=== PATIENT | female | born 1950 | race Caucasian/White ===

== ENCOUNTER → 2016-05-26 | Outpatient (CLI) | payer OTHER ==
[~2016-05-26] MED LIST: ALBU18002 INH; ALBU1AER9 INH; AMLO-114 PO; ASPCH81X PO; ASPI-232 PO; CANA1TAB PO; CLON0.5T3 PO; CLOP1TAB15 PO; EPP3/2 IM; FEXO1TAB58 PO; FLUT0.15; FLUT0.15 NAE; FLUT1INH INH; INSU3INJ3 SUBCON; IRON INFUSIONS IV; LEVO25TA5 PO; LISI20TA3 PO; LPR25 PO; MONT1TAB3 PO; MONT1TAB5 PO; NITR0.4S UT; NTRGSLP4 PO; NVLGI/PEN SC; ONDA4TAB10 SL; ROPI5TAB PO; SERT-234 PO; SERT50TA PO; SITA50TA3 PO; ZALE10CA PO
[2016-05-29 08:57] LABS: PATIENT HEIGHT 162.6 cm
[2016-05-30 07:39] LABS: CREATININE 1.8 mg/dl (0.6-1.2)
== END | disposition home or self-care (01) ==
LOC: C.LABPVFM 11:01
PROVIDERS: ATTEND Family Medicine
DX: N18.3 Chronic kidney disease, stage 3 (moderate) (principal)

== ENCOUNTER → 2016-05-26 | Outpatient (CLI) | payer OTHER ==
[2016-05-26 14:03] LABS: BASO % 0.3 %; BASO ABS # 0.04 K/uL (0-0.2); COMPLETE YES; EOS % 2.7 %; HEMATOCRIT 35.3 % (37-47); IG% 0.2 %; LYMPH % 24.6 %; LYMPH ABS # 3.11 K/uL (1.2-3.4); MEAN CELL VOLUME 75.1 fL (80-100); MEAN CORPUSCULAR HEMOGLOBIN 23.6 pg (25-34); MEAN CORPUSCULAR HGB CONC 31.4 g/dl (32-36); MEAN PLATELET VOLUME 9.1 fL (7.4-10.4); MONO % 6.9 %; NEUT % 65.3 %; PLATELET COUNT 399 K/uL (130-400); WHITE BLOOD COUNT 12.65 K/uL (4.8-10.8)
[2016-05-26 14:18] LABS: URINE APPEARANCE CLEAR (CLEAR); URINE BILIRUBIN NEG (NEG); URINE COLOR YELLOW; URINE EPITHELIAL CELL AUTO >30 /lpf (0-5); URINE NITRITE NEG (NEG); URINE SPECIFIC GRAVITY 1.009 (1.000-1.030); UROBILINOGEN NEG (NEG)
[2016-05-26 14:19] LABS: ALT/SGPT 15 U/L (12-78); BLOOD UREA NITROGEN 38 mg/dl (7-18); BUN/CREATININE RATIO 21.3 (10-20); CALCIUM 9.4 mg/dl (8.5-10.1); CARBON DIOXIDE 25 mmol/L (21-32); CHLORIDE 102 mmol/L (98-107); GLUCOSE 90 mg/dl (70-99); POTASSIUM 3.9 mmol/L (3.5-5.1); SODIUM 138 mmol/L (136-145)
[2016-05-26 14:22] LABS: ALB/GLOB RATIO 0.6 (0.9-2); ALKALINE PHOSPHATASE 99 U/L (45-117); AST/SGOT 17 U/L (15-37); PHOSPHORUS 4.2 mg/dl (2.5-4.9)
[2016-05-26 14:23] LABS: MANUAL MICROSCOPIC REQUIRED? NO; REVIEW REQ? YES
[2016-05-30 07:58] LABS: ALBUMIN 2.9 G/DL (3.8-4.8); GAMMA GLOBULIN 0.9 G/DL (0.8-1.7); IMMUNOFIXATION IGA SERUM 357 MG/DL (81-463); IMMUNOFIXATION IGG SERUM 738 MG/DL (694-1618); IMMUNOFIXATION IGM SERUM 269 MG/DL (48-271); TOTAL PROTEIN 6.3 G/DL (6.2-8.3)
== END | disposition home or self-care (01) ==
LOC: C.LABPVFM 08:27
PROVIDERS: ATTEND Family Medicine
DX: R77.1 Abnormality of globulin (principal); N18.3 Chronic kidney disease, stage 3 (moderate)

== ENCOUNTER → 2016-05-29 | Outpatient (CLI) | payer OTHER ==
--- NOTE | 2016-05-29 13:30 | DIAGNOSTIC IMAGING REPORT ---
EXAMINATION: RENAL ULTRASOUND CLINICAL HISTORY: Chronic renal disease COMPARISON STUDY: CT scan dated 05/09/2015 FINDINGS: The right kidney measures 9.7 cm. The left kidney measures 11.3 cm. There is no evidence of hydronephrosis. There is a 9 mm lower pole right renal cyst. No bladder abnormalities are visualized. Bilateral ureteral jets were visualized. IMPRESSION : 9 mm lower pole right renal cyst. Symmetric renal cortical thickness. No evidence of hydronephrosis. Electronically signed by: Brian Carpio M.D. 05/29/2016 1:29 PM Dictated Date/Time: 05/29/2016 1:28 PM
== END | disposition home or self-care (01) ==
LOC: C.ULTR 12:41
PROVIDERS: ATTEND Family Medicine
DX: N18.3 Chronic kidney disease, stage 3 (moderate) (principal)

== ENCOUNTER → 2016-07-13 | Outpatient (CLI) | payer OTHER | END | disposition home or self-care (01) | LOC: C.RDSM 10:40 | PROVIDERS: ATTEND Orthopaedic Surgery | DX: M19.032 Primary osteoarthritis, left wrist (principal) ==

== ENCOUNTER 2016-10-21 09:54 | Emergency (ER) | payer OTHER ==
[~2016-10-21] VITALS: Ht 165.1 cm; Wt 67.5 kg
[~2016-10-21 09:54] MED LIST changes: -ALBU18002 INH; -ASPCH81X PO; -FLUT0.15; -IRON INFUSIONS IV; -MONT1TAB5 PO; -NITR0.4S UT; -SERT-234 PO; -SITA50TA3 PO
[2016-10-21 10:04] VITALS: Ht 165.1 cm; Wt 67.5 kg
[2016-10-21] MEDS ORDERED: ALBU18002 INH (10:23)
[2016-10-21] MEDS ORDERED: SERT-234 PO (10:23)
--- NOTE | 2016-10-21 12:17 | DIAGNOSTIC IMAGING REPORT ---
L-SPINE MIN 4 VIEWS ROUTINE HISTORY: Trauma. Pain. fall, low back pain COMPARISON: None. FINDINGS: There is no fracture. No subluxation. Mild degenerative disc change. Benign bone marrow hemangioma of L2. IMPRESSION: Mild degenerative change. No acute bony abnormality. The above report was generated using voice recognition software. It may contain grammatical, syntax or spelling errors. Electronically signed by: Rad Ackerman M.D. 10/21/2016 12:15 PM Dictated Date/Time: 10/21/2016 12:15 PM
[2016-10-21] MEDS ORDERED: OXYCODONE HCL IR 5 MG TAB (IMMEDIATE RELEASE) PO STA (13:28)
[2016-10-21] MEDS ORDERED: OXYCODONE IR HOME PACK PO ONE (13:30)
[2016-10-21 14:04] VITALS: BP 132/46; PULSE 85; TEMP 37; O2SAT 98
--- NOTE | 2016-10-21 14:51 | EMERGENCY ROOM VISIT NOTE ---
History Report prepared by Nathan: Jeannette Up Under the Supervision of: Dr. Oneal Ibarra M.D. First contact with patient: 10:47 Chief Complaint: FALL Stated Complaint: FELL OUT OF BED,BACK,LEG,HIP PAIN History of Present Illness The patient is a 66 year old female who presents to the Emergency Room with complaints of a sudden fall that occurred 4 days ago. The patient states that she has a high bed and she rolled off the bed in the middle of the night. She fell onto her right side and landed on her right arm. She denies hitting her head. As she fell, she tried to grab the night stand for support but it ended up falling onto her back. The patient states that she did not have any pain the day after falling but yesterday she started to experience some pain in her lower back. She thinks the pain started because she swiffered the floors 2 days ago. The pain radiates from her back down into her calves bilaterally. The patient did not take anything for the pain at home. She states that she was prescribed Percocet after she had left hand surgery in May but she has not taken any of that. Pt denies LOC, headache, fevers, chills, night sweats, diaphoresis, visual changes, neck pain, chest pain, breathing difficulties, nausea, vomiting, abdominal pain, melena, hematochezia, urinary symptoms, numbness, loss of bowel or bladder control, weakness, lymphadenopathy, rash, or other complaints. The patient adds that she knows that she has a degenerative disc in her upper back. The patient is on Plavix. Source of History: patient Onset: 4 days ago Position: other (global) Quality: other (fall) Timing: other (sudden) Associated Symptoms: + back pain Note: bilateral leg pain Review of Systems See HPI for pertinent positives and negatives. A total of ten systems were reviewed and were otherwise negative. Past Medical & Surgical Medical Problems: (1) Anxiety (2) CAD (coronary artery disease) (3) CKD (chronic kidney disease), stage III (4) COPD (chronic obstructive pulmonary disease) (5) CVA (cerebral vascular accident) (6) Depression (7) Diastolic CHF (8) DM2 (diabetes mellitus, type 2) (9) GERD (gastroesophageal reflux disease) (10) HTN (hypertension) (11) Hypothyroidism (12) Insomnia Surgical Problems: (1) H/O section (2) H/O colonoscopy (3) H/O esophagogastroduodenoscopy (4) S/P CABG x 3 (5) S/P hernia repair (6) S/P surgical manipulation of ankle joint (7) S/P JOEL-BSO Family History FH: cancer FH: diabetes mellitus BROTHER FH: heart disease BROTHER Kidney disease MOTHER Social History Smoking Status: Current Every Day Smoker Alcohol Use: none Drug Use: none Marital Status: Housing Status: lives with significant other Occupation Status: disabled Current/Historical Medications Scheduled Aspirin (Aspir-81), 81 MG PO QAM Clopidogrel (Plavix), 75 MG PO QAM Fexofenadine-Pseudoephedrine (Melina-D 24 Hour Allergy), 1 TAB PO DAILY Fluticasone Furoate-Vilanterol (Breo Ellipta), 1 PUFF INH QAM Fluticasone Propionate (Nasal) (Flonase Allergy Relief), 1 SPRAY DENIZ QAM Insulin Aspart (Novolog Flexpen), UNITS SC UD Insulin Detemir (Levemir Flextouch), 21 UNIT SUBCON AMPM Levothyroxine Sodium (Levothyroxine Sodium), 25 MCG PO QAM Lisinopril (Prinivil), 20 MG PO QAM Metoprolol Tartrate (Lopressor), 25 MG PO BID Montelukast Sodium (Singulair), 10 MG PO HS Sertraline (Zoloft), 100 MG PO DAILY Scheduled PRN Albuterol Sulfate (Proair Respiclick), 2 PUFFS INH Q4H PRN for Wheezing Clonazepam (Klonopin), 0.5 MG PO DAILY PRN for Anxiety Epinephrine (Epipen), 0.3 MG IM UD PRN for ALLERGIC REACTION Nitroglycerin (Nitrostat), 1 TAB PO UD PRN for Chest Pain Ondasetron Odt (Zofran Odt), 4 MG SL Q8 PRN for Nausea Allergies Coded Allergies: Tomato (Verified Allergy, Severe, Hives, 10/21/16) Hives BEE STING (Verified Allergy, Mild, 10/21/16) Penicillins (Verified Allergy, Unknown, pt has tolerated Methylprednisolone in the past, 10/21/16) Rosuvastatin (Verified Allergy, Unknown, UNKNOWN, 10/21/16) Statins (Verified Adverse Reaction, Unknown, EFFECTED LIVER STUDIES, ) Physical Exam Vital Signs Date Time Temp Pulse Resp B/P (MAP) Pulse Ox O2 Delivery O2 Flow Rate FiO2 10/21/16 14:04 37.0 85 18 132/46 98 10/21/16 12:52 85 18 132/46 10/21/16 10:04 37.0 54 18 133/65 98 Room Air Physical Exam GENERAL: Awake, alert, well-appearing, in no distress HENT: Normocephalic, atraumatic. Oropharynx unremarkable. EYES: Normal conjunctiva. Sclera non-icteric. NECK: Supple. No nuchal rigidity. FROM. No JVD. RESPIRATORY: Clear to auscultation. CARDIAC: Regular rate, normal rhythm. Extremities warm and well perfused. Pulses equal. ABDOMEN: Soft, non-distended. No tenderness to palpation. No rebound or guarding. No masses. RECTAL: Deferred. MUSCULOSKELETAL: Chest examination reveals no tenderness. The back is symmetrical on inspection without obvious abnormality. Low lumbar tenderness. There is no CVA tenderness to palpation. No joint edema. LOWER EXTREMITIES: Calves are equal size bilaterally and non-tender. No edema. No discoloration. NEURO: Normal sensorium. No sensory or motor deficits noted. SKIN: No rash or jaundice noted. Medical Decision & Procedures ER Provider Diagnostic Interpretation: Radiology results as stated below per my review and radiologist interpretation: L-SPINE MIN 4 VIEWS ROUTINE FINDINGS: There is no fracture. No subluxation. Mild degenerative disc change. Benign bone marrow hemangioma of L2. IMPRESSION: Mild degenerative change. No acute bony abnormality. The above report was generated using voice recognition software. It may contain grammatical, syntax or spelling errors. Electronically signed by: Rad Ackerman M.D. 10/21/2016 12:15 PM Dictated Date/Time: 10/21/2016 12:15 PM Medications Administered Medications (Trade) Dose Ordered Sig/Millie Route Start Time Stop Time Status Last Admin Dose Admin Oxycodone HCl (Roxicodone Immediate Rel Tab) 5 mg NOW STAT PO 10/21/16 13:28 10/21/16 13:30 DC 10/21/16 13:34 5 MG Oxycodone HCl (Roxicodone Immediate Rel 5MG Home Pack) 1 homepack UD ONCE PO 10/21/16 13:30 10/21/16 13:31 DC 10/21/16 13:35 1 [facility] ED Course 1145: The patient was evaluated in room B3. A complete history and physical exam was performed. 1325: I reevaluated the patient. Discussed results and discharge instructions: she verbalized understanding and agreement. The patient is ready for discharge. 1328: Ordered Oxycodone HCl 5 mg PO 1330: Ordered Oxycodone HCl 1 homepack PO Medical Decision Medication Reconciliation: I attest that I have personally reviewed the patient' s current medication list Patient was found to have a slightly elevated blood pressure due to circumstances. I do not believe that the patient requires hypertension monitoring. Prior records/ancillary studies reviewed. Triage Nursing notes reviewed and agree them. Additional history obtained from the family. The patient's history was concerning for back pain. Differential diagnosis: Etiologies such as contusion, fracture, lumbago, sciatica, aortic disease, metastatic disease, cord compression, discitis, infection, renal colic, gastrointestinal, cauda equina, as well as others were entertained. Physical findings: As above. The patient had no saddle anesthesia. The patient was able to ambulate. Gait was normal. No stigmata of DVT. She has had no urinary symptoms. She has no abdominal tenderness. ER treatment provided: OxyIR 5 mg orally Diagnostics interpreted by me: Imaging studies: X-rays as above The patient had a fall and then several days later developed back pain. She notes that she may have been overdoing it with housework. Her x-ray imaging does not reveal any evidence of acute fracture. She does have symptoms that are somewhat consistent with sciatica. I discussed conservative management with her. She is doing very well at this time. She is able to ambulate. I will give her a very small amount of oxycodone for the weekend. She will use Tylenol, heat and rest. The oxycodone will be for breakthrough pain. The patient was given the first dose in the emergency department. The patient's physical examination and detailed history did not reveal any red flags for back pain such as those listed in the differential diagnosis. Therefore advanced diagnostics and consultations were felt to be unwarranted. By the evaluation outlined above emergent etiologies such as fracture, aortic disease, metastatic disease, infection, renal colic, gastrointestinal, cord compression, cauda equina, as well as others were deemed relatively unlikely. The patient and were informed about the findings as listed above. All questions were answered and they were pleased with the treatment. Return instructions were outlined and the patient was discharged in stable condition. Outpatient prescription management: Oxy IR 5mg 1 po Q8 hrs prn breakthrough pain Referral: The patient was referred back to her primary care physician for follow-up in 2 to 3 days for a recheck of the current condition. [place] Drug Monitoring Program Search Results: patient reviewed within database, see additional documentation Drug Monitoring Findings: Multiple prescriptions note from orthopedics and her primary care doctor although no pain medication was prescribed within the last 4 months. Impression Primary Impression: Lumbar back pain Scribe Attestation The scribe's documentation has been prepared under my direction and personally reviewed by me in its entirety. I confirm that the note above accurately reflects all work, treatment, procedures, and medical decision making performed by me. Departure Information Dispostion Home / Self-Care Referrals Ac Mcmanus D.O. (PCP) Forms HOME CARE DOCUMENTATION FORM, IMPORTANT VISIT INFORMATION Patient Instructions My [facility] Additional Instructions BACK PAIN/INJURY INSTRUCTIONS: DO NOT drive, drink alcohol, operate machinery, or perform dangerous activities today. You were given medications in the ER that can affect your ability to safely function or operate a vehicle. Oxycodone (OxyIR) 5mg: Take 1 pills every 8 hours for breakthrough pain. Avoid alcohol, operating machinery or dangerous equipment, working on ladders or roofs , DRIVING, or situations where being under the influence may be dangerous. It is recommended to use an [id number] stool softener such as Colace, 100mg twice daily while taking this medication to avoid constipation. Acetaminophen(Tylenol) may be used for fever or pain. Use 1000mg every six hours as needed. Avoid using more than 3000mg in a 24 hour period. This medication can be taken if you need to drive, work, or perform activities which may be dangerous when taking narcotic pain medication. Rest and avoid heavy lifting until your symptoms resolve and then gradually return to full activity. A good rule of thumb is if it hurts your back to perform a certain activity, then it should be avoided until you are healthy again. A heating pad, warm compresses, or a hot shower may help with tight muscles and can be done several times a day as needed. Continue current medications. Return to the ER immediately for any numbness, tingling, severe pain, loss of control of your bowels or bladder, inability to walk, or as needed. Follow up with your primary care physician within 2-3 days for a recheck of your current condition. Problem Qualifiers Primary Impression: Lumbar back pain
== END 2016-10-21 14:06 | disposition home or self-care (01) ==
LOC: C.EDB 09:55 → C.EDC 14:06
DX: M54.5 Low back pain (principal); I25.10 Atherosclerotic heart disease of native coronary artery without angina pectoris; N18.3 Chronic kidney disease, stage 3 (moderate); J44.9 Chronic obstructive pulmonary disease, unspecified; E11.22 Type 2 diabetes mellitus with diabetic chronic kidney disease; I13.0 Hypertensive heart and chronic kidney disease with heart failure and stage 1 through stage 4 chronic kidney disease, or unspecified chronic kidney disease; F32.9 Major depressive disorder, single episode, unspecified; E03.9 Hypothyroidism, unspecified; I50.32 Chronic diastolic (congestive) heart failure; Z91.81 History of falling; Z86.73 Personal history of transient ischemic attack (TIA), and cerebral infarction without residual deficits; Z98.890 Other specified postprocedural states; Z79.02 Long term (current) use of antithrombotics/antiplatelets; Z79.82 Long term (current) use of aspirin; Z79.4 Long term (current) use of insulin; Z79.899 Other long term (current) drug therapy

== ENCOUNTER → 2016-11-21 | Day surgery (SDC) | payer OTHER ==
[2016-11-14 09:21] VITALS: Ht 165.1 cm; Wt 63.6 kg
[~2016-11-21] VITALS: Ht 165.1 cm; Wt 63.6 kg
[~2016-11-21] MED LIST changes: +ALBU18002 INH; -ALBU1AER9 INH; -AMLO-114 PO; +ASPCH81X PO; -ASPI-232 PO; -CANA1TAB PO; -FEXO1TAB58 PO; +FLUT0.15; -FLUT0.15 NAE; +IRON INFUSIONS IV; +LIDOCAINE HCL 2% 2 ML VIAL (20MG/ML) ONE; -MONT1TAB3 PO; +MONT1TAB5 PO; +NITR0.4S UT; -NTRGSLP4 PO; -ONDA4TAB10 SL; +PROPOFOL IV EMULSION 10 MG/ML 20 ML VIAL IV ONE; -ROPI5TAB PO; +SITA50TA3 PO; +SODIUM CHLORIDE 0.9% 500ML 500 ML IV ONE; -ZALE10CA PO
[2016-11-21 08:30] VITALS: TEMP 36.9
--- NOTE | 2016-11-21 09:28 | Endo History and Physical ---
History & Physical Date of Service: Nov 21, 2016. Chief Complaint: screening Referring Physician: Dr. Ac Mcmanus History of Present Illness screening Past Medical History Diabetes, Arthritis, Asthma, Anxiety, Reflux, High Cholesterol, CABG, Heart Disease, Syncopal Episodes, CHF, Hypertension, COPD, Thyroid Disease, Kidney Disease, Depression, [place] Past Surgical History Hx Cardiac Surgery: Yes (HEART CATH, CABG-3 VESSELS) Hx Internal Defibrillator: No Hx Pacemaker: No Hx Abdominal Surgery: Yes (KARSTEN, APPY, HERNIA REPAIR X3, BOWEL RESECTION, C- SECTION X3) Hx of Implantable Prosthesis: No Hx Post-Op Nausea and Vomiting: No Hx Cancer Surgery: No Hx Thoracic Surgery: No Hx Orthopedic: Yes (LEFT HAND RECONSTRUCTION SURGERY, LT CTR, LEFT LEG SURGERY S/P FALL) Hx Urinary Tract Surgery: No Family History Colon CA Social History Smoking Status: Current Some Day Smoker Hx Substance Use: No Hx Alcohol Use: No Allergies Coded Allergies: Tomato (Verified Allergy, Severe, Hives, 11/14/16) Hives BEE STING (Verified Allergy, Mild, MOUTH SWELLING, 11/14/16) Penicillins (Verified Allergy, Unknown, RASH, 11/14/16) Rosuvastatin (Verified Allergy, Unknown, SEVERE H/A, 11/14/16) Statins (Verified Adverse Reaction, Unknown, EFFECTED LIVER STUDIES, ) Current Medications Reported Home Medications Medications Dose Route/Sig Max Daily Dose Days Date Category Dose Instructions Plavix (Clopidogrel Bisulfate) 75 Mg Tab 75 Mg PO DAILY 11/21/16 Reported [Iron Infusions] 1 Dose IV WK 11/14/16 Reported Aspirin Chewable (Aspirin) 81 Mg Chew 81 Mg PO QAM 11/14/16 Reported Nitrostat (Nitroglycerin) 0.4 Mg Sub 0.4 Mg UT PRN 11/14/16 Reported Flonase Allergy Relief (Fluticasone Propionate (Nasal)) 50 Mcg/Act Spr 1 [place] NA BID 11/14/16 Reported Prinivil (Lisinopril) 20 Mg Tab 20 Mg PO QAM 11/14/16 Reported Epipen (Epinephrine) 0.3 Mg/0.3 Ml Inj 0.3 Mg IM UD 11/14/16 Reported Breo Ellipta (Fluticasone Furoate-Vilanterol) 1 Inh Inh 1 Puff INH QAM 11/14/16 Reported Proair Respiclick (Albuterol Sulfate) 108 Mcg/Act Aer 2 Puff INH Q4H PRN 11/14/16 Reported Lopressor (Metoprolol Tartrate) 25 Mg Tab 25 Mg PO BID 11/14/16 Reported Zoloft (Sertraline HCl) 50 Mg Tab 50 Mg PO QAM 11/14/16 Reported Montelukast Sodium 10 Mg Tab 1 Tab PO HS 90 11/14/16 Reported Januvia (Sitagliptin) 50 Mg Tab 50 Mg PO QAM 11/14/16 Reported Levemir Flextouch (Insulin Detemir) 100 Unit/Ml Inj 18 Unit SUBCON AMPM 01/16/16 Reported Novolog Flexpen (Insulin Aspart) 100 Units/Ml Inj Units SC UD 05/09/15 Reported NEEDED AND DIRECTED BY SLIDING SCALE. Klonopin (Clonazepam) 0.5 Mg Tab 1 Tab PO HS PRN 05/09/15 Reported Only use for severe anxiety. Take no more than once a day. Levothyroxine Sodium 25 Mcg Tab 25 Mcg PO QAM 11/07/14 Reported Vital Signs Weight (Kilograms): 63.64 Height (Feet): 5 Height (Inches): 5 Date Time Temp Pulse Resp B/P (MAP) Pulse Ox O2 Delivery O2 Flow Rate FiO2 11/21/16 08:30 36.9 45 16 172/79 (110) 99 Room Air Physical Exam General Appearance: WD/WN, no apparent distress Assessment and Plan colonoscopy today
--- NOTE | 2016-11-21 09:52 | Discharge Instructions ---
Endoscopy Patient Instructions Date / Procedure(s) Performed Nov 21, 2016. Colonoscopy Allergy Information Coded Allergies: Tomato (Verified Allergy, Severe, Hives, 11/14/16) Hives BEE STING (Verified Allergy, Mild, MOUTH SWELLING, 11/14/16) Penicillins (Verified Allergy, Unknown, RASH, 11/14/16) Rosuvastatin (Verified Allergy, Unknown, SEVERE H/A, 11/14/16) Statins (Verified Adverse Reaction, Unknown, EFFECTED LIVER STUDIES, ) Discharge Date / Findings Nov 21, 2016. Poor prep Medication Instructions Stopped Medication(s): took ASA today 0600,Plavix last dose 4days ago Restart Stopped Medication(s): OK to resume home medications if not returning for repeat colonoscopy tomorrow Provider Instructions Activity Restrictions - No exercising or heavy lifting for 24 hours. - Do not drink alcohol the day of the procedure. - Do not drive a car or operate machinery until the day after the procedure. - Do not make any important decisions or sign important papers in 24 hours after the procedure. Following Day: - Return to full activity which may include returning to work/school. Diet Start your diet with liquids and light foods (jello, soup, juice, toast). Then eat your usual diet if not nauseated. Treatment For Common After Affects For mild abdominal pain, bloating, or excessive gas: - Rest - Eat lightly - Lie on right side Follow-Up Information Follow-up with Dr. Ac Mcmanus as scheduled Anesthesia Information What You Should Know You have had a procedure that required some medicine to reduce anxiety and discomfort. This treatment is called moderate sedation. After receiving the treatment, you may be sleepy, but you will be able to breathe on your own. The effects of the treatment may last for several hours. Follow these instructions along with Activity/Diet recommendations noted above: * Do NOT do anything where dizziness or clumsiness would be dangerous. * Rest quietly at home today, then you can be up and about tomorrow. * Have a responsible person stay with you the rest of today. * You may have had an I.V. today. If so, you may take the dressing off later today. Recommendations Call your doctor if: * Trouble breathing * Continuous vomiting for more than 24 hours * Temperature above 101 degrees * Severe abdominal pain or bloating * Pain not relieved by pain medicine ordered * There is increased drainage or redness from any incision * A large amount of rectal bleeding greater than 2-3 tablespoons. (If you had a polyp/s removed or have hemorrhoids, a small amount of blood - from the rectum is to be expected.) * You have any unanswered questions or concerns. IN THE EVENT OF A SERIOUS EMERGENCY, GO TO THE NEAREST EMERGENCY ROOM Your discharge instructions were prepared by provider Cathryn Alvarez. Patient Instructions Signature Page Mimi Wakefield Patient (or Guardian) Signature/Date: I have read and understand the instructions given to me by my caregivers. Caregiver/RN/Doctor Signature/Date: The above-named patient and/or guardian has received patient instructions on this date. + Original Patient Signature Page (only) stays with chart. Please make copy for patient.
--- NOTE | 2016-11-21 10:03 | GI REPORT ---
Procedure Date: 11/21/2016 8:21 AM Procedure: Colonoscopy Indications: High risk colon cancer surveillance: Personal history of colonic polyps Medicines: Propofol per Anesthesia Complications: No immediate complications. Estimated blood loss: None. Estimated Blood Loss: Estimated blood loss: none. Procedure: Pre-Anesthesia Assessment: - Prior to the procedure, a History and Physical was performed, and patient medications, allergies and sensitivities were reviewed. The patient's tolerance of previous anesthesia was reviewed. - The risks and benefits of the procedure and the sedation options and risks were discussed with the patient. All questions were answered and informed consent was obtained. - Patient identification and proposed procedure were verified prior to the procedure by the physician and the nurse. The procedure was verified in the pre-procedure area in the procedure room. - Mental Status Examination: alert and oriented. Airway Examination: normal oropharyngeal airway and neck mobility. Respiratory Examination: clear to auscultation. CV Examination: normal. Abdominal Examination: bowel sounds present, abdomen soft and non-tender, no masses or organomegaly noted. - ASA Grade Assessment: III - A patient with severe systemic disease. After I obtained informed consent, the scope was passed under direct vision. Throughout the procedure, the patient's blood pressure, pulse, and oxygen saturations were monitored continuously. The procedure was aborted. The colonoscope was not inserted. Medications were given. The colonoscopy was performed without difficulty. The patient tolerated the procedure well. The quality of the bowel preparation was inadequate. Findings: The perianal and digital rectal examinations were normal. Pertinent negatives include normal sphincter tone and no palpable rectal lesions. A large amount of semi-liquid semi-solid stool was found in the entire colon. Impression: - Preparation of the colon was inadequate. - Stool in the entire examined colon. - No specimens collected. Recommendation: - Repeat colonoscopy because the bowel preparation was poor. - Discharge patient to home. Cathryn Alvarez D.O. Cathryn Alvarez DO 11/21/2016 10:02:59 AM This report has been signed electronically. Note Initiated On: 11/21/2016 8:21 AM I attest to the content of the Intraoperative Record and orders documented therein, exceptions below
[2016-11-21 10:19] VITALS: BP 179/77; PULSE 41; O2SAT 99
--- NOTE | 2016-11-21 10:26 | Anesthesiology Progress Note ---
Anesthesia Post Op Note Date & Time Nov 21, 2016 at 10:26 Vital Signs Pain Intensity: 3 Vital Signs Past 12 Hours Date Time Temp Pulse Resp B/P (MAP) Pulse Ox O2 Delivery O2 Flow Rate FiO2 11/21/16 10:19 41 16 179/77 (111) 99 Room Air 11/21/16 10:08 42 16 175/74 (107) 99 Room Air 11/21/16 09:45 42 12 141/56 (84) 98 Nasal Cannula 4 11/21/16 08:30 36.9 45 16 172/79 (110) 99 Room Air Notes Mental Status: alert / awake / arousable, participated in evaluation Pt Amnestic to Procedure: Yes Nausea / Vomiting: adequately controlled Pain: adequately controlled Airway Patency, RR, SpO2: stable & adequate BP & HR: stable & adequate Hydration State: stable & adequate Anesthetic Complications: no major complications apparent
--- NOTE | 2016-11-28 09:39 | EDITING REQUIRED CODING QUERY ---
Yes, the scope was inserted. Someone will need to allow me to chancge the colonoscopy report on Sunday. ETS CQCODING QUERY To promote full compliance with coding requirements relating to patient care, provider participation is requested in all cases of certified orthoptist uncertainty. Please assist us with the question(s) below: Coding Question(s): READING PROCEDURE IT LOOKED LIKE THE COLONOSCOPY WAS DONE BUT IN ONE PART IT SAID COLONSCOPE WAS NOT INSERTED. WAS THE SCOPE INSERTED AT ALL? THANKS FOR YOUR HELP Physician's Response(s): Thank you Haily Snow Principal Diagnosis: "_that condition established after study, to be chiefly responsible for occasioning the admission of the patient to the hospital for care." Co-Existing Principal Diagnosis: "_when two or more diagnoses equally meet the criteria for principal diagnosis as determined by the circumstances of admission, diagnostic work up, and/or therapy provided, and the Alphabetic Index, Tabular List, or another coding guideline does not provide sequencing direction, any one of the diagnoses may be sequenced first." "When the physician has documented what appears to be a current diagnosis in the body of the record, but has not included the diagnosis in the final diagnostic statement, the physician should be asked whether the diagnosis should be added." (Source Coding Clinic 2 QTR90. p3-4)
== END | disposition home or self-care (01) ==
LOC: C.GI 08:13
PROVIDERS: ATTEND Internal Medicine
DX: Z12.11 Encounter for screening for malignant neoplasm of colon (principal); Z86.010 Personal history of colon polyps; F17.210 Nicotine dependence, cigarettes, uncomplicated; Z80.0 Family history of malignant neoplasm of digestive organs; Z95.1 Presence of aortocoronary bypass graft; E11.9 Type 2 diabetes mellitus without complications; I10 Essential (primary) hypertension; J44.9 Chronic obstructive pulmonary disease, unspecified; F32.9 Major depressive disorder, single episode, unspecified; Z79.899 Other long term (current) drug therapy; Z79.4 Long term (current) use of insulin

== ENCOUNTER 2017-07-02 14:53 | Inpatient (IN) | payer OTHER ==
[~2017-07-02] VITALS: Ht 162.6 cm; Wt 66.2 kg
[~2017-07-02 14:53] MED LIST changes: -CLON0.5T3 PO; -LEVO25TA5 PO; -LIDOCAINE HCL 2% 2 ML VIAL (20MG/ML) ONE; -PROPOFOL IV EMULSION 10 MG/ML 20 ML VIAL IV ONE; -SODIUM CHLORIDE 0.9% 500ML 500 ML IV ONE
[2017-07-02] MEDS ORDERED: ONDANSETRON INJ 2 MG/ML 2 ML VIAL IV STA (17:13)
[2017-07-02] MEDS ORDERED: SODIUM CHLORIDE 0.9% 1000ML 1,000 ML IV STA ×3 (17:13→18:34)
--- NOTE | 2017-07-02 17:26 | EMERGENCY ROOM VISIT NOTE ---
History Report prepared by Nathan: Roque Armstrong Under the Supervision of: Dr. Juancho Hong M.D. First contact with patient: 17:03 Chief Complaint: GI ASSESSMENT Stated Complaint: FALL, VOMITING Nursing Triage Summary: Patient states she has had nausea and vomitting and diarrhea for 3 weeks . States she started probiotic and keeps vomitting up antinausea medication. Patient states she fell today. C/o right arm and right leg pain and fell onto chest. Denies hittin head. C/o headache from not eating per patient. History of Present Illness The patient is a 67 year old female who presents to the Emergency Room with complaints of nausea and vomiting that began 3 weeks ago. She had a bowel movement 1 week ago with diarrhea prior to that. She complains of abdominal pain , swelling, headache, and limited dietary intake. Today she states that she felt lightheaded and fell onto her chest without a head strike. She complains of right arm and right leg soreness and bruising. She states she recently had the flu and was placed on a Z pack and probiotic with minimal relief. She had a 300 lb weight loss and panniculectomy at [facility]. In 2007 she had a triple bypass. Of note, the patient has stage 4 kidney disease. Additionally she has hardware in her left foot. Source of History: patient, nursing staff Onset: 3 weeks ago Position: abdomen Symptom Intensity: pain rated as 8/10 Quality: other (swelling) Timing: constant Associated Symptoms: + headache, + nausea, + vomiting, + abdominal pain ( with swelling), + diarrhea (1 week ago) Note: Patient had a fall with no head strike. She complains of right arm and right leg soreness and bruising. Review of Systems See HPI for pertinent positives & negatives. A total of 10 systems reviewed and were otherwise negative. Past Medical & Surgical Medical Problems: (1) Anxiety (2) CAD (coronary artery disease) (3) Chronic renal failure, stage 4 (severe) (4) CKD (chronic kidney disease), stage III (5) COPD (chronic obstructive pulmonary disease) (6) CVA (cerebral vascular accident) (7) Depression (8) Diastolic CHF (9) DM2 (diabetes mellitus, type 2) (10) GERD (gastroesophageal reflux disease) (11) HTN (hypertension) (12) Hypothyroidism (13) Insomnia Surgical Problems: (1) H/O section (2) H/O colonoscopy (3) H/O esophagogastroduodenoscopy (4) S/P CABG x 3 (5) S/P hernia repair (6) S/P surgical manipulation of ankle joint (7) S/P JOEL-BSO Family History FH: cancer FH: diabetes mellitus BROTHER FH: heart disease BROTHER Kidney disease MOTHER Social History Smoking Status: Current Every Day Smoker Alcohol Use: none Drug Use: none Marital Status: Housing Status: lives with significant other Occupation Status: disabled Current/Historical Medications Scheduled Amlodipine Besylate (Amlodipine Besylate), 5 MG PO DAILY Furosemide (Furosemide), 40 MG PO DAILY Metoprolol Tartrate (Lopressor) (Lopressor), 25 MG PO BID Mirtazapine (Remeron), 30 MG PO HS Montelukast Sodium (Montelukast Sodium), 1 TAB PO HS Nitroglycerin (Nitrostat), 0.4 MG UT PRN Potassium Gluconate (Potassium Gluconate), 2 TABS PO QPM Sertraline HCl (Sertraline HCl), 150 MG PO DAILY Sitagliptin Phosphate (Januvia), 50 MG PO DAILY Scheduled PRN Albuterol Hfa (Ventolin Hfa), 2 PUFFS INH Q6 PRN for SOB/Wheezing Allergies Coded Allergies: Tomato (Verified Allergy, Severe, Hives, 11/14/16) Hives BEE STING (Verified Allergy, Mild, MOUTH SWELLING, 11/14/16) Penicillins (Verified Allergy, Unknown, RASH, 11/14/16) Prednisone (Verified Allergy, Unknown, SWELLING OG HANDS, ITCHING, RASH, ) INFO FROM [employer] Rosuvastatin (Verified Allergy, Unknown, SEVERE H/A, 11/14/16) Statins (Verified Adverse Reaction, Unknown, EFFECTED LIVER STUDIES, ) Physical Exam Vital Signs Date Time Temp Pulse Resp B/P (MAP) Pulse Ox O2 Delivery O2 Flow Rate FiO2 07/02/17 17:33 67 18 198/114 96 Room Air 07/02/17 17:25 72 07/02/17 15:02 36.8 76 18 190/96 96 Room Air Physical Exam GENERAL: Patient is anxious appearing and in mild distress. EYES: No scleral icterus, unremarkable pupils. ENT: Dry mucous membranes, no nasal congestion. NECK: No masses appreciated, no meningismus, trachea is midline. RESPIRATORY: Mild wheezing bilateral lungs. No dyspnea. Clear to auscultation and equal bilaterally. No rhonchi. CARDIOVASCULAR: Regular rate and rhythm. No murmurs, rubs, gallops appreciated. GASTROINTESTINAL: Distended abdomen with diffuse mild tenderness to palpation, soft, no peritonitis. Bowel sounds positive. No masses appreciated. BACK: No midline tenderness, no CVA tenderness EXTREMITIES: Normal motion all extremities, no cyanosis, no edema. NEUROLOGIC: Alert and oriented, no acute motor or sensory deficits, no focal weakness, cranial nerves grossly intact. SKIN: No rash, no jaundice, no diaphoresis. Medical Decision & Procedures ER Provider Diagnostic Interpretation: Radiology results and stated below per my review and radiologist interpretation: ABD/PELVIS WITHOUT FOR STONE CLINICAL HISTORY: 67 years-old Female presenting with diffuse abdominal pain, vomiting, no BM x 1 wk. TECHNIQUE: Multidetector CT of the abdomen and pelvis was performed without the use of intravenous contrast. IV contrast: None. A dose lowering technique was used consistent with the principles of ALARA (as low as reasonably achievable). COMPARISON: 05/09/2015. CT DOSE (mGy.cm): The estimated cumulative dose is 825.30 mGy.cm. FINDINGS: Chromium Plater topogram: Cholecystectomy clips. Lung bases: Lungs and pleural spaces clear. Normal heart size. Coronary artery calcification. No pericardial or pleural effusion. Liver: Normal morphology. Normal density. Biliary: Mild biliary ductal prominence likely a reservoir effect in the post cholecystectomy state. Gallbladder surgically absent. Pancreas: Moderate parenchymal atrophy. Spleen: Normal noncontrast appearance. Adrenal glands: Normal. Kidneys and ureters: Normal. No hydronephrosis. Bladder: Mild circumferential bladder wall thickening. Pelvic organs: Uterus surgically absent. No adnexal masses. Bowel: Normal. No bowel obstruction. Duodenal diverticulum noted at the level of the pancreatic head. Peritoneal cavity: No free fluid or intraperitoneal gas. Lymph nodes: No gross lymphadenopathy allowing for noncontrast technique. Vasculature: Atherosclerosis of the normal caliber abdominal aorta. Abdominal wall: Extensive postsurgical changes of the ventral abdomen with diastases of the rectus abdominis and ventral hernia repair with prosthetic mesh in place. No associated fluid or inflammatory change. No significant recurrent hernia although abdominal wall laxity is noted. Mild body wall edema. Musculoskeletal: Benign hemangioma noted in the L2 vertebral body. Minimal degenerative changes of the spine. IMPRESSION: 1. Mild circumferential bladder wall thickening could suggest infectious cystitis. Correlate with urinalysis. No other evidence of acute intra-abdominal pathology. 2. Postsurgical changes of ventral hernia repair without evidence of complication. Electronically signed by: Jaren Jacome M.D. 07/02/2017 6:10 PM Dictated Date/Time: 07/02/2017 6:00 PM Laboratory Results 07/02/17 17:27 Red Blood Count 4.55, Mean Corpuscular Volume 80.0, Mean Corpuscular Hemoglobin 27.9, Mean Corpuscular Hemoglobin Concent 34.9, Mean Platelet Volume 9.3, Neutrophils (%) (Auto) 75.2, Lymphocytes (%) (Auto) 18.8, Monocytes (%) (Auto) 5.3, Eosinophils (%) (Auto) 0.3, Basophils (%) (Auto) 0.2, Neutrophils # (Auto) 7.18, Lymphocytes # (Auto) 1.80, Monocytes # (Auto) 0.51, Eosinophils # (Auto) 0.03, Basophils # (Auto) 0.02 07/02/17 17:27 Test 07/02/17 17:27 White Blood Count 9.56 K/uL (4.8-10.8) Red Blood Count 4.55 M/uL (4.2-5.4) Hemoglobin 12.7 g/dL (12.0-16.0) Hematocrit 36.4 % (37-47) Mean Corpuscular Volume 80.0 fL (80-100) Mean Corpuscular Hemoglobin 27.9 pg (25-34) Mean Corpuscular Hemoglobin Concent 34.9 g/dl (32-36) Platelet Count 154 K/uL (130-400) Mean Platelet Volume 9.3 fL (7.4-10.4) Neutrophils (%) (Auto) 75.2 % Lymphocytes (%) (Auto) 18.8 % Monocytes (%) (Auto) 5.3 % Eosinophils (%) (Auto) 0.3 % Basophils (%) (Auto) 0.2 % Neutrophils # (Auto) 7.18 K/uL (1.4-6.5) Lymphocytes # (Auto) 1.80 K/uL (1.2-3.4) Monocytes # (Auto) 0.51 K/uL (0.11-0.59) Eosinophils # (Auto) 0.03 K/uL (0-0.5) Basophils # (Auto) 0.02 K/uL (0-0.2) RDW Standard Deviation 45.7 fL (36.4-46.3) RDW Coefficient of Variation 15.4 % (11.5-14.5) Immature Granulocyte % (Auto) 0.2 % Immature Granulocyte # (Auto) 0.02 K/uL (0.00-0.02) Anion Gap 9.0 mmol/L (3-11) Est Creatinine Clear Calc Drug Dose 12.9 ml/min Estimated GFR () 13.7 Estimated GFR (Non- 11.8 BUN/Creatinine Ratio 12.0 (10-20) Calcium Level 8.4 mg/dl (8.5-10.1) Total Bilirubin 0.8 mg/dl (0.2-1) Direct Bilirubin 0.2 mg/dl (0-0.2) Aspartate Amino Transf (AST/SGOT) 18 U/L (15-37) Alanine Aminotransferase (ALT/SGPT) 14 U/L (12-78) Alkaline Phosphatase 85 U/L (45-117) Troponin I < 0.015 ng/ml (0-0.045) Total Protein 6.7 gm/dl (6.4-8.2) Albumin 2.6 gm/dl (3.4-5.0) Lipase 102 U/L (73-393) Laboratory results as reviewed by me. Medications Administered Medications (Trade) Dose Ordered Sig/Millie Route Start Time Stop Time Status Last Admin Dose Admin Sodium Chloride 1,000 ml @ 999 mls/hr Q1H1M STAT IV 07/02/17 17:13 07/02/17 18:13 DC 07/02/17 17:40 999 MLS/HR Ondansetron HCl (Zofran Inj) 4 mg NOW STAT IV 07/02/17 17:13 07/02/17 17:16 DC 07/02/17 17:42 4 MG Sodium Chloride 1,000 ml @ 75 mls/hr [id number] STAT IV 07/02/17 18:34 07/03/17 07:53 07/02/17 19:50 75 MLS/HR Labetalol HCl (Normodyne IV) 10 mg NOW STAT IV 07/02/17 18:34 07/02/17 18:35 DC 07/02/17 19:54 10 MG ECG Per My Interpretation Indication: abdominal pain, syncope Rate (beats per minute): 71 Rhythm: normal sinus Findings: no acute ischemic change, no ectopy, other (poor baseline; QTc of 391 ) ED Course 170: The patient was evaluated in room C1B. A complete history and physical exam was performed. 1830: I checked on the patient and she feels much better. She still has not urinated. She would like to try drinking additional fluids. 184: Discussed the patient's case with Saba Bermudez PA-C. The patient will be evaluated for further treatment and disposition. 0: Upon reevaluation, the patient is resting comfortably. Discussed results and treatment plan with the patient. She verbalized understanding and agreement with the treatment plan. The patient will be evaluated for further management. Medical Decision Differential: Gastroenteritis, Food Borne, Esophageal Perforation, , Electrolyte Abnormality, Dehydration, Intraabdominal Infection, UTI/ Pyelonephritis, Bowel Obstruction, Biliary Pathology, amongst other pathology entertained. 67 yr old female arrives for evaluation of nausea, vomiting, and abdominal discomfort for the last 2 weeks. Initially diarrhea but notes scant over last week. Started on zpack yesterday for flu per patient though without significant URI symptoms. She is quite dry by exam though also hypertensive ( likely from not keeping down her meds). CT unremarkable other than bladder but unable to urinate. She was given IV fluids and zofran with improvement in symptoms. She was found to be in acute renal failure and with degree of dehydration I feel bringing her in is most reasonable. Some IV Labetalol for BP issues and hospitalist consulted. Medication Reconcilliation Current Medication List: was personally reviewed by me Blood Pressure Screening Patient's blood pressure: Elevated blood pressure Blood pressure disposition: Elevated BP felt to be situational Consults Time Called: 1833 Consulting Physician: Saba Bermudez PA-C Returned Call: [id number] Discussed the patient's case. The patient will be evaluated for further treatment and disposition. Impression Primary Impression: Acute on chronic renal failure Additional Impressions: Dehydration Hypertension Scribe Attestation The scribe's documentation has been prepared under my direction and personally reviewed by me in its entirety. I confirm that the note above accurately reflects all work, treatment, procedures, and medical decision making performed by me. Departure Information Referrals Ac Mcmanus D.O. (PCP) Patient Instructions My [facility] Problem Qualifiers
[2017-07-02 17:38] LABS: BASO % 0.2 %; BASO ABS # 0.02 K/uL (0-0.2); EOS % 0.3 %; EOS ABS # 0.03 K/uL (0-0.5); HEMATOCRIT 36.4 % (37-47); HEMOGLOBIN 12.7 g/dL (12.0-16.0); IG# 0.02 K/uL (0.00-0.02); LYMPH % 18.8 %; MEAN CORPUSCULAR HEMOGLOBIN 27.9 pg (25-34); MEAN CORPUSCULAR HGB CONC 34.9 g/dl (32-36); MEAN PLATELET VOLUME 9.3 fL (7.4-10.4); MONO % 5.3 %; MONO ABS # 0.51 K/uL (0.11-0.59); NEUT % 75.2 %; NEUT ABS # 7.18 K/uL (1.4-6.5); PLATELET COUNT 154 K/uL (130-400); RED CELL DISTRIBUTION WIDTH CV 15.4 % (11.5-14.5); RED CELL DISTRIBUTION WIDTH SD 45.7 fL (36.4-46.3); WHITE BLOOD COUNT 9.56 K/uL (4.8-10.8)
[2017-07-02 18:01] LABS: ALBUMIN 2.6 gm/dl (3.4-5.0); ALT/SGPT 14 U/L (12-78); BLOOD UREA NITROGEN 44 mg/dl (7-18); CALCIUM 8.4 mg/dl (8.5-10.1); CARBON DIOXIDE 24 mmol/L (21-32); GLUCOSE 146 mg/dl (70-99); LIPASE 102 U/L (73-393); POTASSIUM 4.2 mmol/L (3.5-5.1); SODIUM 136 mmol/L (136-145)
[2017-07-02 18:06] LABS: ALKALINE PHOSPHATASE 85 U/L (45-117); AST/SGOT 18 U/L (15-37); TOTAL PROTEIN 6.7 gm/dl (6.4-8.2)
--- NOTE | 2017-07-02 18:11 | DIAGNOSTIC IMAGING REPORT ---
ABD/PELVIS WITHOUT FOR STONE CLINICAL HISTORY: 67 years-old Female presenting with diffuse abdominal pain, vomiting, no BM x 1 wk. TECHNIQUE: Multidetector CT of the abdomen and pelvis was performed without the use of intravenous contrast. IV contrast: None. A dose lowering technique was used consistent with the principles of ALARA (as low as reasonably achievable). COMPARISON: 05/09/2015. CT DOSE (mGy.cm): The estimated cumulative dose is 825.30 mGy.cm. FINDINGS: Five Piece Expansion Maker Hand topogram: Cholecystectomy clips. Lung bases: Lungs and pleural spaces clear. Normal heart size. Coronary artery calcification. No pericardial or pleural effusion. Liver: Normal morphology. Normal density. Biliary: Mild biliary ductal prominence likely a reservoir effect in the post cholecystectomy state. Gallbladder surgically absent. Pancreas: Moderate parenchymal atrophy. Spleen: Normal noncontrast appearance. Adrenal glands: Normal. Kidneys and ureters: Normal. No hydronephrosis. Bladder: Mild circumferential bladder wall thickening. Pelvic organs: Uterus surgically absent. No adnexal masses. Bowel: Normal. No bowel obstruction. Duodenal diverticulum noted at the level of the pancreatic head. Peritoneal cavity: No free fluid or intraperitoneal gas. Lymph nodes: No gross lymphadenopathy allowing for noncontrast technique. Vasculature: Atherosclerosis of the normal caliber abdominal aorta. Abdominal wall: Extensive postsurgical changes of the ventral abdomen with diastases of the rectus abdominis and ventral hernia repair with prosthetic mesh in place. No associated fluid or inflammatory change. No significant recurrent hernia although abdominal wall laxity is noted. Mild body wall edema. Musculoskeletal: Benign hemangioma noted in the L2 vertebral body. Minimal degenerative changes of the spine. IMPRESSION: 1. Mild circumferential bladder wall thickening could suggest infectious cystitis. Correlate with urinalysis. No other evidence of acute intra-abdominal pathology. 2. Postsurgical changes of ventral hernia repair without evidence of complication. Electronically signed by: Jaren Jacome M.D. 07/02/2017 6:10 PM Dictated Date/Time: 07/02/2017 6:00 PM
[2017-07-02] MEDS ORDERED: LABETALOL HCL IV 5 MG/ML 20ML IV STA (18:34)
[2017-07-02] MEDS ORDERED: LCTX PO (19:31)
[2017-07-02] MEDS ORDERED: FLX/5 PO (19:31)
[2017-07-02] MEDS ORDERED: SITA50TA PO (19:31)
[2017-07-02] MEDS ORDERED: PROMSYP5 PO (19:31)
[2017-07-02] MEDS ORDERED: LSX40 PO (19:31)
[2017-07-02] MEDS ORDERED: METO25TA56 PO (19:31)
[2017-07-02] MEDS ORDERED: AZIT-57 PO (19:31)
[2017-07-02] MEDS ORDERED: NRV/5 PO (19:31)
[2017-07-02] MEDS ORDERED: VNTHFA/IN INH (19:31)
[2017-07-02] MEDS ORDERED: LSN40 PO (19:35)
[2017-07-02] MEDS ORDERED: ZLF/100 PO (19:35)
[2017-07-02] MEDS ORDERED: ACETAMINOPHEN 325 MG TAB PO STA (19:35)
[2017-07-02] MEDS ORDERED: SUVO1TAB PO (19:43)
[2017-07-02] MEDS ORDERED: MIRT30TA3 PO (20:04)
[2017-07-02] MEDS ORDERED: POTA1TAB PO (20:04)
--- NOTE | 2017-07-02 20:04 | History and Physical ---
History & Physical Date & Time of Service: Jul 02, 2017 at 19:41 Chief Complaint: Fall, Vomiting Primary Care Physician: Ac Mcmanus D.O. History of Present Illness Source: patient, clinic records, hospital records This is a 67-year-old female with a past medical history of CKD IV, CAD (s/p CABG x 3 in 2007), HTN, DM II, diastolic CHF and other medical problems listed below who presents with nausea and vomiting 2 weeks. 3 weeks ago, patient had the flu and was experiencing the diarrhea in addition to myalgias and body aches. Completed a Z pack and a course of probiotics. Over the course of the last 2 weeks, patient has been experiencing worsening nausea, vomiting and decreased appetite/fluid intake. Has been unable to keep medications down. Over the last week, patient has had difficulty making urine and suprapubic pain. Has felt easily distracted and shaky. Thinks that her blood sugar is low but has not checked it at home. Endorses a frontal headache currently that feels similar to previous migraines. Was getting dressed to come to the ED today when she lost her balance and fell forward onto her chest. Right arm and right leg with some soreness, bruising. Denies any LOC or head trauma. Denies any fever, chills, lightheadedness, visual changes, chest pain, shortness of breath, LE swelling. History of a reported 300 pound weight loss and panniculectomy at [facility] in 2005. Has a reported history of congestive heart failure, for which she takes 40 mg of Lasix daily. was recently diagnosed with cancer and patient admits increased stress and feeling distracted from managing her own health. Follows with Dr. Lucero for nephrology and Dr. Neda Mcmanus for PCP. Is a smoker. Past Medical/Surgical History Medical Problems: (1) Anxiety Status: Chronic (2) CAD (coronary artery disease) Permanent Comment: S/P CABG 2007 Status: Chronic (3) Chronic renal failure, stage 4 (severe) Status: Chronic (4) CKD (chronic kidney disease), stage III Status: Chronic (5) COPD (chronic obstructive pulmonary disease) Status: Chronic (6) CVA (cerebral vascular accident) Status: Chronic (7) Depression Status: Chronic (8) Diastolic CHF Status: Chronic (9) DM2 (diabetes mellitus, type 2) Status: Chronic (10) GERD (gastroesophageal reflux disease) Status: Chronic (11) HTN (hypertension) Status: Chronic (12) Hypothyroidism Status: Chronic (13) Insomnia Status: Chronic Surgical Problems: (1) H/O section Status: Chronic (2) H/O colonoscopy Status: Chronic (3) H/O esophagogastroduodenoscopy Status: Chronic (4) S/P CABG x 3 Status: Chronic (5) S/P hernia repair Status: Chronic (6) S/P surgical manipulation of ankle joint Permanent Comment: ORIF left ankle Status: Chronic (7) S/P JOEL-BSO Status: Chronic Family History FH: cancer FH: diabetes mellitus BROTHER FH: heart disease BROTHER Kidney disease MOTHER Social History Smoking Status: Current Every Day Smoker Alcohol Use: none Drug Use: none Marital Status: Housing status: lives with family Occupational Status: disabled Immunizations History of Influenza Vaccine: Yes Influenza Vaccine Date: Dec 19, 2011 History of Tetanus Vaccine?: 2010 Tetanus Immunization Date: Nov 01, 2003 History of Pneumococcal: Yes Pneumococcal Date: May 20, 2003 History of Hepatitis B Vaccine: Yes Allergies Coded Allergies: Tomato (Verified Allergy, Severe, Hives, 11/14/16) Hives BEE STING (Verified Allergy, Mild, MOUTH SWELLING, 11/14/16) Penicillins (Verified Allergy, Unknown, RASH, 11/14/16) Prednisone (Verified Allergy, Unknown, SWELLING OG HANDS, ITCHING, RASH, ) INFO FROM [facility] Rosuvastatin (Verified Allergy, Unknown, SEVERE H/A, 11/14/16) Statins (Verified Adverse Reaction, Unknown, EFFECTED LIVER STUDIES, ) Home Medications Scheduled Amlodipine Besylate (Amlodipine Besylate), 5 MG PO DAILY Furosemide (Furosemide), 40 MG PO DAILY Metoprolol Tartrate (Lopressor) (Lopressor), 25 MG PO BID Mirtazapine (Remeron), 30 MG PO HS Montelukast Sodium (Montelukast Sodium), 1 TAB PO HS Nitroglycerin (Nitrostat), 0.4 MG UT PRN Potassium Gluconate (Potassium Gluconate), 2 TABS PO QPM Sertraline HCl (Sertraline HCl), 150 MG PO DAILY Sitagliptin Phosphate (Januvia), 50 MG PO DAILY Scheduled PRN Albuterol Hfa (Ventolin Hfa), 2 PUFFS INH Q6 PRN for SOB/Wheezing Review of Systems Ten systems reviewed and negative except as noted in the HPI. Physical Exam Vital Signs Date Time Temp Pulse Resp B/P (MAP) Pulse Ox O2 Delivery O2 Flow Rate FiO2 07/02/17 17:33 67 18 198/114 96 Room Air 07/02/17 17:25 72 07/02/17 15:02 36.8 76 18 190/96 96 Room Air General Appearance: no apparent distress, + pertinent finding (chronically ill appearing ) Head: normocephalic, atraumatic Eyes: normal inspection, PERRL, sclerae normal ENT: normal ENT inspection, hearing grossly normal, pharynx normal (very dry mucous membranes, crusting around mouth) Neck: supple, thyroid normal, trachea midline Respiratory/Chest: chest non-tender, lungs clear, normal breath sounds, no respiratory distress, no accessory muscle use Cardiovascular: regular rate, rhythm, no murmur, normal peripheral pulses Abdomen/GI: non tender, soft, no organomegaly Back: normal inspection Extremities/Musculoskelatal: normal inspection, no calf tenderness, no pedal edema, + pertinent finding (L foot prosthetic ) Neurologic/Psych: no motor/sensory deficits, alert, oriented x 3, + pertinent finding (anxious) Skin: normal color, warm/dry, + pertinent finding (L forearm hand with petechiae, L thigh with ecchymosis ) Diagnostics Laboratory Results Results Past 24 Hours Test 07/02/17 17:27 Range/Units White Blood Count 9.56 4.8-10.8 K/uL Red Blood Count 4.55 4.2-5.4 M/uL Hemoglobin 12.7 12.0-16.0 g/dL Hematocrit 36.4 37-47 % Mean Corpuscular Volume 80.0 80-100 fL Mean Corpuscular Hemoglobin 27.9 25-34 pg Mean Corpuscular Hemoglobin Concent 34.9 32-36 g/dl Platelet Count 154 130-400 K/uL Mean Platelet Volume 9.3 7.4-10.4 fL Neutrophils (%) (Auto) 75.2 % Lymphocytes (%) (Auto) 18.8 % Monocytes (%) (Auto) 5.3 % Eosinophils (%) (Auto) 0.3 % Basophils (%) (Auto) 0.2 % Neutrophils # (Auto) 7.18 1.4-6.5 K/uL Lymphocytes # (Auto) 1.80 1.2-3.4 K/uL Monocytes # (Auto) 0.51 0.11-0.59 K/uL Eosinophils # (Auto) 0.03 0-0.5 K/uL Basophils # (Auto) 0.02 0-0.2 K/uL RDW Standard Deviation 45.7 36.4-46.3 fL RDW Coefficient of Variation 15.4 11.5-14.5 % Immature Granulocyte % (Auto) 0.2 % Immature Granulocyte # (Auto) 0.02 0.00-0.02 K/uL Sodium Level 136 136-145 mmol/L Potassium Level 4.2 3.5-5.1 mmol/L Chloride Level 103 98-107 mmol/L Carbon Dioxide Level 24 21-32 mmol/L Anion Gap 9.0 3-11 mmol/L Blood Urea Nitrogen 44 7-18 mg/dl Creatinine 3.70 0.60-1.20 mg/dl Est Creatinine Clear Calc Drug Dose 12.9 ml/min Estimated GFR () 13.7 Estimated GFR (Non- 11.8 BUN/Creatinine Ratio 12.0 10-20 Random Glucose 146 70-99 mg/dl Calcium Level 8.4 8.5-10.1 mg/dl Total Bilirubin 0.8 0.2-1 mg/dl Direct Bilirubin 0.2 0-0.2 mg/dl Aspartate Amino Transf (AST/SGOT) 18 15-37 U/L Alanine Aminotransferase (ALT/SGPT) 14 12-78 U/L Alkaline Phosphatase 85 45-117 U/L Troponin I < 0.015 0-0.045 ng/ml Total Protein 6.7 6.4-8.2 gm/dl Albumin 2.6 3.4-5.0 gm/dl Lipase 102 73-393 U/L Diagnostic Radiology CT abd/pelvis: IMPRESSION: 1. Mild circumferential bladder wall thickening could suggest infectious cystitis. Correlate with urinalysis. No other evidence of acute intra-abdominal pathology. 2. Postsurgical changes of ventral hernia repair without evidence of complication. EKG Normal sinus rhythm Possible Left atrial enlargement ST & T wave abnormality, consider lateral ischemia Impression Assessment and Plan This is a 67-year-old female with a past medical history of CKD IV, CAD (s/p CABG x 3 in 2007), HTN, DM II and other medical problems listed below who presents with nausea and vomiting 2 weeks. Acute on chronic CKD IV: -Recent viral infection -Poor PO intake, nausea, vomiting, feeling confused consistent with uremia vs UTI -Cr of 3.7 today (from baseline ~2) -Oliguria. Trend I&Os -Received 2L NSS in ED -Continue with maintenance fluids -Hold lasix -Nephro consult Nausea: -Likely from uremia, cystitis -Zofran PRN -Clear liquids UTI: -Oliguria, suprapubic pain -Unable to collect urine sample for UA, culture -Abd/pelvis CT with mild circumferential bladder wall thickening could suggest infectious cystitis -Treat empirically with Rocephin Headache: -2/2 dehydration -Tylenol Hypertensive urgency: -Unable to keep medications down, anxious -Given 10mg IV labetalol in ED -Continue to monitor -IV hydralazine PRN for SBP >180 -Cont home dose amlodipine, metoprolol CAD (s/p CABG x 3 in 2007): -Denies chest pain -EKG with NSR, inverted T waves in lateral leads -Could be 2/2 HTNive urgency -Troponin negative. Trend for completeness DM II: -Improved since weight loss -A1c of 6.4 in Mar 2016 -Recheck in AM -Hold home agents -SSI while in-patient -BSG checks AC HS Mood disorder: -Cont sertraline DVT Ppx: SQ heparin Code status: FULL per discussion with patient PCP: Neda Mcmanus Dispo: Admitted to telemetry. Patient seen in collaboration with Dr. Pruett. Please see addendum. ADDENDUM: This is a 67 year old female with a PMH of CKD stage IV, CAD s/p CABG x3, DM2, significant intentional weight loss - presents with 3-4 day history of unable to urinate, headaches, nausea/vomiting, shakiness/tremulousness. She states she has been unable to take her medications due to the nausea/vomiting. She states her headache has been bad and she is not able to control it. On exam: Severely dehydrated/dry mucous membranes +S1, S2, RRR CTA b/l, no wheezing no edema Plan: HEBERT superimposed on CKD stage IV - given 2L of fluids in the ED, will give NS @ 100mL/hr - recheck creatinine in AM, baseline is upper 2's - monitor output, unable to urinate x 3-4 days - nephrology consulted for further input Acute cystitis - added Rocephin - UA and urine culture pending Hypertensive Urgency - unable to take her PO amlodipine or metoprolol at home - given IV Labetalol in the ED - IV hydralazine PRN added Resuscitation Status VTE Prophylaxis Will order VTE Prophylaxis: Yes
[2017-07-02] MEDS ORDERED: ALBUTEROL HFA 8 GM INHALER INH PRN (20:15)
[2017-07-02] MEDS ORDERED: NITROGLYCERIN 0.4 MG SL PER TAB CHARGE UT SCH (20:15)
[2017-07-02] MEDS ORDERED: LEVO25TA5 PO (20:18)
[2017-07-02] MEDS ORDERED: GLUCOSE 10 TABS/TUBE PO PRN (20:30)
[2017-07-02] MEDS ORDERED: GLUCOSE 40% GEL 15 GM TUBE PO PRN (20:30)
[2017-07-02] MEDS ORDERED: DEXTROSE 50% 50 ML SYR IV PRN (20:30)
[2017-07-02] MEDS ORDERED: GLUCAGON FOR INJ 1 MG VIAL SQ PRN (20:30)
[2017-07-02] MEDS: ONDANSETRON INJ 2 MG/ML 2 ML VIAL IV PRN (20:33)
[2017-07-02] MEDS ORDERED: CLON0.5T3 PO (20:41)
[2017-07-02] MEDS: INSULIN ASPART 100 UNITS/ML 3 ML PEN SC SCH (21:00)
[2017-07-02] MEDS ORDERED: POTASSIUM GLUCONATE PO SCH (21:00)
[2017-07-02 21:30] VITALS: BP 208/96; PULSE 66; TEMP 37.2; O2SAT 96; BMI 25.4
[2017-07-02] MEDS ORDERED: SODIUM CHLORIDE 0.9% 1000ML 1,000 ML IV SCH (22:00)
[2017-07-02] MEDS: HydrALAZINE HCL 20 MG/ML VIAL IV. PRN (22:10)
[2017-07-02] MEDS: CEFTRIAXONE SOD INJ 1 GM in DEXTROSE 5% ADD-VANTAGE 50ML 50 ML IV SCH (22:29)
[2017-07-02] MEDS: MONTELUKAST SOD 10 MG TAB PO SCH (22:33)
[2017-07-02] MEDS: METOPROLOL TARTRATE 25 MG TAB PO SCH (22:34)
[2017-07-02] MEDS: MIRTAZAPINE TAB 15 MG TAB PO SCH (22:34)
[2017-07-02] MEDS ORDERED: ZOLPIDEM TARTRATE 5 MG TAB PO PRN (22:45)
[2017-07-03] VITALS (48 sets, daily range): BP systolic 138–236; BP diastolic 64–121; PULSE 52–97; TEMP 36.4–36.8; O2SAT 89–100; Ht 162.6 cm; Wt 66.2 kg
[2017-07-03] MEDS ORDERED: DiphenhydrAMINE HCL 50 MG/ML VIAL IV STA (00:59)
[2017-07-03] MEDS ORDERED: SUMATRIPTAN SUCCINATE 25 MG TAB PO PRN (01:00)
[2017-07-03] MEDS ORDERED: CLONIDINE HCL 0.1 MG/24 HR TRANSDERM SYS TD SCH (02:00)
[2017-07-03 05:59] LABS: HEMATOCRIT 33.5 % (37-47); HEMOGLOBIN 11.5 g/dL (12.0-16.0); MEAN CELL VOLUME 81.1 fL (80-100); MEAN CORPUSCULAR HEMOGLOBIN 27.8 pg (25-34); MEAN CORPUSCULAR HGB CONC 34.3 g/dl (32-36); MEAN PLATELET VOLUME 9.5 fL (7.4-10.4); PLATELET COUNT 160 K/uL (130-400); RED CELL DISTRIBUTION WIDTH CV 15.6 % (11.5-14.5); RED CELL DISTRIBUTION WIDTH SD 46.2 fL (36.4-46.3)
[2017-07-03 06:33] LABS: HEMOGLOBIN A1C 7.9 % (4.5-5.6)
[2017-07-03 06:34] LABS: BLOOD UREA NITROGEN 37 mg/dl (7-18); CALCIUM 7.9 mg/dl (8.5-10.1); CARBON DIOXIDE 21 mmol/L (21-32); GLUCOSE 104 mg/dl (70-99); POTASSIUM 3.8 mmol/L (3.5-5.1); SODIUM 139 mmol/L (136-145)
[2017-07-03] MEDS ORDERED: LABETALOL HCL IV 5 MG/ML 20ML IV ONE (07:27)
--- NOTE | 2017-07-03 07:52 | DIAGNOSTIC IMAGING REPORT ---
CT OF THE HEAD WITHOUT CONTRAST CLINICAL HISTORY: rule out stroke COMPARISON STUDY: MRI the brain December 25, [address] May 09, 2015. CT DOSE: 1842.80 mGy.cm TECHNIQUE: Helical axial images of the head were obtained without IV contrast. Automated exposure control was utilized for the study. A dose lowering technique was utilized adhering to the principles of ALARA. FINDINGS: Exam is moderately compromised by motion artifact. No acute intracranial hemorrhage, midline shift or mass effect is present. Ventricular system is normal. The basilar cisterns are patent. White matter hypodensities are unchanged and suggest small vessel disease. There are no findings to suggest acute dural sinus thrombosis or acute territorial infarct. No definite calvarial abnormalities are identified. Sensitivity for detection of nondisplaced calvarial fractures is diminished given motion artifact. Visualized portions of the sinuses and mastoid air cells are clear. IMPRESSION: Exam moderately compromised by motion artifact but no acute intracranial findings identified. No acute intracranial hemorrhage. Electronically signed by: Herman Ruggiero M.D. 07/03/2017 7:51 AM Dictated Date/Time: 07/03/2017 7:46 AM
[2017-07-03] MEDS: INSULIN ASPART 100 UNITS/ML 3 ML PEN SC SCH ×4 (08:18→21:38)
[2017-07-03] MEDS: AMLODIPINE BESYLATE 5 MG TAB PO SCH (08:30)
[2017-07-03] MEDS: ONDANSETRON INJ 2 MG/ML 2 ML VIAL IV PRN (08:39)
[2017-07-03] MEDS: HydrALAZINE HCL 20 MG/ML VIAL IV. PRN ×2 (08:40→16:32)
[2017-07-03] MEDS: CHECK CLONIDINE PATCH PLACEMENT SCH ×2 (08:41→16:26)
[2017-07-03] MEDS: HEPARIN SOD 5000 UNIT/0.5 ML CARP SQ SCH ×3 (08:45→21:38)
[2017-07-03] MEDS: METOPROLOL TARTRATE 25 MG TAB PO SCH (08:47)
[2017-07-03] MEDS: SERTRALINE HCL 100 MG TAB PO SCH (08:48)
[2017-07-03] MEDS ORDERED: D5W AND 1/2NSS 1,000 ML IV SCH (10:00)
[2017-07-03] MEDS: MoRPHine SULFATE 2 MG/ML CARP IV PRN ×2 (10:01→23:09)
--- NOTE | 2017-07-03 15:06 | Neurology Consultation ---
Neurology Consultation Date of Consultation: Jul 03, 2017. Attending Physician: Antonino Tristan MD Primary Care Physician: Ac Mcmanus D.OMacho Reason for Consultation: seizure like activity History of Present Illness Source: patient Mimi is a 67 year old female with a PMH CKD IV, CAD (s/p CABG x 3 in 2007) , HTN, DM II, diastolic CHF who presented with nausea and vomiting 2 weeks. 3 weeks ago, she had the flu with diarrhea in addition to myalgias and body aches. Completed a Z pack and a course of probiotics. Over the course of the last 2 weeks, patient has been experiencing worsening nausea, vomiting and decreased appetite/fluid intake and unable to keep her medications down. Over the last week, patient has had difficulty making urine and suprapubic pain. Thinks that her blood sugar is low but has not checked it at home. She has a frontal headache currently that feels similar to previous migraines. Was getting dressed to come to the ED today when she lost her balance and fell forward onto her chest. She had a 300 pound weight loss and panniculectomy at [facility] in 2005. was recently diagnosed with cancer and patient admits increased stress and feeling distracted from managing her own health. Follows with Dr. Lucero for nephrology and Dr. Neda Mcmanus for PCP. Is a smoker. This am she got up to go to the bathroom and was found obtunded on the floor. She had no incontinence but was hard to arouse and a stroke alert was called. There is no new one sided weakness or slurred speech. She states she has a bad migraine which is not going away. denies CP, SOB, abdominal pain, N, V. Past Medical/Surgical History Medical Problems: (1) Acute on chronic renal failure Status: Acute (2) Dehydration Status: Acute (3) Hypertension Status: Acute Social History Problems: (1) Nausea, vomiting and diarrhea Status: Acute Social History Smoking Status: Current some day smoker Alcohol Use: none Drug Use: none Marital Status: Housing Status: lives with significant other Occupation Status: disabled Allergies Coded Allergies: Tomato (Verified Allergy, Severe, Hives, 11/14/16) Hives BEE STING (Verified Allergy, Mild, MOUTH SWELLING, 11/14/16) Penicillins (Verified Allergy, Unknown, RASH, 11/14/16) Prednisone (Verified Allergy, Unknown, SWELLING OG HANDS, ITCHING, RASH, ) [facility] Rosuvastatin (Verified Allergy, Unknown, SEVERE H/A, 11/14/16) Statins (Verified Adverse Reaction, Unknown, EFFECTED LIVER STUDIES, ) Current Inpatient Medications Current Inpatient Medications Medications (Trade) Dose Ordered Sig/Millie Route Start Time Stop Time Status Last Admin Dose Admin Acetaminophen (Tylenol Tab) 650 mg Q4H PRN PO 07/02/17 19:45 08/01/17 19:44 Heparin Sodium (Porcine) (Heparin Sq 5000 Unit/0.5ml) 5,000 unit Q8 SQ 07/03/17 07:00 08/02/17 06:59 07/03/17 08:45 5,000 UNIT Ondansetron HCl (Zofran Inj) 4 mg Q6H PRN IV 07/02/17 19:45 08/01/17 19:44 07/03/17 08:39 4 MG Albuterol (Ventolin Hfa Inhaler) 2 puffs Q6 PRN INH 07/02/17 20:15 08/01/17 20:14 Amlodipine Besylate (Norvasc Tab) 5 mg DAILY PO 07/03/17 09:00 08/02/17 08:59 07/03/17 08:30 5 MG Mirtazapine (Remeron Tab) 30 mg HS PO 07/02/17 21:00 08/01/17 20:59 07/02/17 22:34 30 MG Montelukast Sodium (Singulair Tab) 10 mg HS PO 07/02/17 21:00 08/01/17 20:59 07/02/17 22:33 10 MG Nitroglycerin (Nitrostat Tab) 0.4 mg PRN UT 07/02/17 20:15 08/01/17 20:14 Sertraline HCl (Zoloft Tab) 150 mg DAILY PO 07/03/17 09:00 08/02/17 08:59 07/03/17 08:48 150 MG Hydralazine HCl (HydrALAZINE INJ) 10 mg Q8 PRN IV. 07/02/17 20:30 08/01/17 20:29 07/03/17 08:40 10 MG Insulin Aspart (novoLOG ASPART) SLIDING SCALE If C... ACHS SC 07/02/17 21:00 08/01/17 20:59 07/03/17 11:46 1 UNITS Glucose (Glucose 40% Gel) 15-30 GRAMS 15 GRAMS... UD PRN PO 07/02/17 20:30 08/01/17 20:29 Glucose (Glucose Chew Tab) 4-8 Tablets 4 Tabl... UD PRN PO 07/02/17 20:30 08/01/17 20:29 Dextrose (Dextrose 50% 50ML Syringe) 25-50ML OF 50% DW IV FOR... UD PRN IV 07/02/17 20:30 08/01/17 20:29 Glucagon (Glucagon Inj) 1 mg UD PRN SQ 07/02/17 20:30 08/01/17 20:29 Ceftriaxone Sodium 1 gm/ Dextrose 50 ml @ 100 mls/hr Q24H IV 07/02/17 22:00 07/07/17 21:59 07/02/17 22:29 100 MLS/HR Zolpidem Tartrate (Ambien Tab) 5 mg HS PRN PO 07/02/17 22:45 08/01/17 22:44 Future Hold 07/03/17 00:32 5 MG Clonidine HCl (Evwnshgy-Qxx-7 0.1mg/24hr Patch) 1 patch CQWK@0200 TD 07/03/17 02:00 08/02/17 01:59 07/03/17 02:08 1 PATCH Miscellaneous Information (Check Clonidine Patch Placement) 1 ea QS N/A 07/03/17 08:00 08/02/17 07:59 07/03/17 08:41 1 EA Miscellaneous (Remove Clonidine Patch) 1 ea CQWK@0159 N/A 07/10/17 01:59 08/09/17 01:58 Metoprolol Tartrate (Lopressor Tab) 50 mg BID PO 07/03/17 21:00 08/02/17 20:59 Dextrose/Sodium Chloride 1,000 ml @ 75 mls/hr [id number] IV 07/03/17 10:00 08/02/17 09:59 07/03/17 10:01 75 MLS/HR Morphine Sulfate (MoRPHine SULFATE INJ) 2 mg Q2H PRN IV 07/03/17 10:00 07/17/17 09:59 07/03/17 10:01 2 MG Physical Exam Vital Signs (Past 24 Hrs): Date Time Temp Pulse Resp B/P (MAP) Pulse Ox O2 Delivery O2 Flow Rate FiO2 07/03/17 13:02 60 12 154/64 (94) 94 Room Air 07/03/17 12:02 36.6 64 15 177/77 (110) 96 Room Air 07/03/17 12:00 Room Air 07/03/17 11:32 65 17 184/83 (116) 95 Room Air 07/03/17 11:17 64 14 214/88 (130) 96 Room Air 07/03/17 10:47 65 16 208/98 (134) 95 Room Air 07/03/17 10:31 68 23 208/90 (129) 94 Room Air 07/03/17 10:16 67 18 198/76 (116) 94 Room Air 07/03/17 10:01 67 13 188/80 (116) 95 Room Air 07/03/17 09:24 96 Room Air 07/03/17 09:08 36.8 07/03/17 08:47 65 19 200/108 (163) 99 07/03/17 08:45 62 21 99 07/03/17 08:33 62 16 231/118 (182) 100 07/03/17 08:30 63 16 99 07/03/17 08:17 63 22 211/92 (113) 99 07/03/17 08:15 65 27 218/105 (166) 99 07/03/17 08:02 69 17 205/121 (154) 99 07/03/17 08:00 66 20 99 07/03/17 07:56 67 13 205/116 (145) 99 Nasal Cannula 2.0 07/03/17 07:54 67 17 205/116 (169) 99 07/03/17 07:30 66 07/03/17 07:22 73 18 236/80 (131) 89 Room Air 07/03/17 07:22 68 16 212/77 (122) 100 Nasal Cannula 3.0 07/03/17 07:00 36.8 97 22 235/89 (137) 97 Room Air 97.0 07/03/17 04:00 95 Room Air 3/27/18 03:55 36.7 62 17 210/84 (126) 95 Room Air 07/03/17 00:37 58 207/85 (125) 07/03/17 00:00 36.8 61 18 209/83 (125) 99 Room Air 07/03/17 00:00 96 Room Air 07/02/17 21:30 37.2 66 208/96 96 Room Air 07/02/17 21:09 69 20 197/97 95 07/02/17 20:56 70 20 198/92 95 Room Air 07/02/17 20:00 62 16 206/114 96 Room Air 07/02/17 19:57 62 161/127 07/02/17 19:48 64 214/97 07/02/17 17:33 67 18 198/114 96 Room Air 07/02/17 17:25 72 07/02/17 15:02 36.8 76 18 190/96 96 Room Air Physical Exam: Constitutional:appearance nourished, healthy and normal Ears, Nose, Mouth and Throat: mucous membranes moist, no injection and skin normal, eyes normal Cardiovascular: normal S-1 and S-2 and regular rate and rhythm Respiratory: course breath sounds Musculoskeletal: no peripheral edema and good distal pulses Skin: no stigmata of neurocutaneous disease noted and normal and intact, some erythema right forearm Eyes: extraocular muscles intact (EOMI) and pupils equal, round and reactive to light (PERRL) NEUROLOGIC EXAMINATION: Mental status: Alert and interactive Oriented self but has difficulty staying on track with questions, does know [facility] , president Anastasia Oriented to person Speech fluent with no evidence of aphasia Cranial Nerves smile eye brow raise symmetric, tongue midline Reflexes: Deep tendon reflexes were symmetrical and graded 2/5. Plantar responses were flexor. Sensory: light and cool touch Coordination: finger to nose with some dysmetric Gait/Stance: Posture lying in bed Motor: Negative for pronator drift of out stretched arms with eyes closed. Strength: right side hand preassembler printed circuit board, biceps triceps 4/5, hip flex plantar flex ext 4/5, left hand preassembler printed circuit board biceps triceps 5/5 hip flex 5/5 plantar flex 5/5 Laboratory Results Past 24 Hours: 07/03/17 05:22 07/03/17 05:22 Test 07/02/17 17:27 07/03/17 05:22 07/03/17 11:19 Immature Granulocyte % (Auto) 0.2 % White Blood Count 9.56 K/uL (4.8-10.8) Red Blood Count 4.55 M/uL (4.2-5.4) 4.13 M/uL (4.2-5.4) Hemoglobin 12.7 g/dL (12.0-16.0) Hematocrit 36.4 % (37-47) Mean Corpuscular Volume 80.0 fL (80-100) 81.1 fL (80-100) Mean Corpuscular Hemoglobin 27.9 pg (25-34) 27.8 pg (25-34) Mean Corpuscular Hemoglobin Concent 34.9 g/dl (32-36) 34.3 g/dl (32-36) Platelet Count 154 K/uL (130-400) Mean Platelet Volume 9.3 fL (7.4-10.4) 9.5 fL (7.4-10.4) Neutrophils (%) (Auto) 75.2 % Lymphocytes (%) (Auto) 18.8 % Monocytes (%) (Auto) 5.3 % Eosinophils (%) (Auto) 0.3 % Basophils (%) (Auto) 0.2 % Neutrophils # (Auto) 7.18 K/uL (1.4-6.5) Lymphocytes # (Auto) 1.80 K/uL (1.2-3.4) Monocytes # (Auto) 0.51 K/uL (0.11-0.59) Eosinophils # (Auto) 0.03 K/uL (0-0.5) Basophils # (Auto) 0.02 K/uL (0-0.2) Immature Granulocyte # (Auto) 0.02 K/uL (0.00-0.02) Total Bilirubin 0.8 mg/dl (0.2-1) Direct Bilirubin 0.2 mg/dl (0-0.2) Aspartate Amino Transf (AST/SGOT) 18 U/L (15-37) Alanine Aminotransferase (ALT/SGPT) 14 U/L (12-78) Alkaline Phosphatase 85 U/L (45-117) Total Protein 6.7 gm/dl (6.4-8.2) Albumin 2.6 gm/dl (3.4-5.0) Lipase 102 U/L (73-393) RDW Standard Deviation 46.2 fL (36.4-46.3) RDW Coefficient of Variation 15.6 % (11.5-14.5) Prothrombin Time 10.0 SECONDS (9.0-12.0) Prothromb Time International Ratio 1.0 (0.9-1.1) Anion Gap 10.0 mmol/L (3-11) Est Creatinine Clear Calc Drug Dose 16.7 ml/min Estimated GFR () 17.6 Estimated GFR (Non- 15.2 BUN/Creatinine Ratio 12.3 (10-20) Estimated Average Glucose 180 mg/dl Hemoglobin A1c 7.9 % (4.5-5.6) Calcium Level 7.9 mg/dl (8.5-10.1) Magnesium Level 1.9 mg/dl (1.8-2.4) Troponin I < 0.015 ng/ml (0-0.045) Bedside Glucose 170 mg/dl (70-90) Date/Time Source Procedure Growth Status 07/03/17 08:42 Nasal MRSA DNA Surveillance Screen - Final Specimen Negative for MRSA by DNA Probe Complete Imaging CT head- Exam moderately compromised by motion artifact but no acute intracranial findings identified. No acute intracranial hemorrhage. Impression 67 year old female with CKD s/p flu symptoms and dehydration with unresponsive episode Plan 1. EEG - for possible new onset seizure 2. MRI brain with and without for seizure focus or area of stroke- when medically stable 3. optimize DM,HTN, DL LDL <70 4. not clear as to what morning event was 5. on going issues with HTN, CKD 6. headache will add Mg++ 400 mg daily 7. no triptans for headache due to HTN and stroke risk 8. tylenol for headache 9. correct metabolic issues I have seen and discussed above patient with Dr Oneal Manzano, neurology I have seen this woman with Alisha Tracey and agree with above plans for further workup exam shows a generalized tremor some equivocal asterixis and some tangential digressive thinking which is probably metabolic and due to renal failure but will check eeg and ammonia and later will check mri if stable medically will follow up tomorrow suspect event was hypotensive or cardiac but we need to exclude seizures no aeds at this time until eeg is done and we observe her further Oneal Manzano MD
[2017-07-03] MEDS ORDERED: MAGNESIUM OXIDE 400 MG TAB PO ONE (15:45)
--- NOTE | 2017-07-03 16:26 | Critical Care Consultation ---
Critical Care Consultation Date of Consultation: Jul 03, 2017. Attending Physician: Antonino Tristan MD Reason for Consultation: Code purple, hypertensive emergency, seizure versus CVA History of Present Illness Patient is a 63-year-old female who was admitted the evening previous with the working diagnosis of acute kidney injury on chronic kidney disease stage IV, nausea vomiting, hypertensive urgency, history of coronary artery disease and diabetes mellitus type 2. LISA MODI was called approximately 7 AM this morning , upon my arrival bedside nurse reported that the patient had been hypertensive throughout the evening, was mildly agitated, had gotten up to going to the bathroom and upon her return had tonic clonic type seizure like activity. The activity resolved and on the patient was rather somnolescent in a presumptive post ictal state. She did not receive any medication treatment during this episode. Given the fact she had a prior CVA per report be called a stroke alert to expedite her transfer to the CT scanner to evaluate for intracranial hemorrhage given her profound hypertension with a systolic greater than 200. While in the CT scanner the patient became more lucid and eventually started to follow commands. Upon her arrival in the ICU from the CT scan of the patient was alert, conversant, oriented to time place and self and able to follow complex commands without any evidence of focal neurologic deficit. I discussed the case with the attending hospitalist Dr. Tristan, we will continue to follow the patient for hypertensive urgency/emergency at this time. Upon her arrival in the critical care unit we discontinue the stroke alert as she would not be a candidate for TPA and the prompt resolution of her encephalopathy. Past Medical/Surgical History Medical Problems: (1) Anxiety Status: Chronic (2) CAD (coronary artery disease) Permanent Comment: S/P CABG 2007 Status: Chronic (3) Chronic renal failure, stage 4 (severe) Status: Chronic (4) CKD (chronic kidney disease), stage III Status: Chronic (5) COPD (chronic obstructive pulmonary disease) Status: Chronic (6) CVA (cerebral vascular accident) Status: Chronic (7) Depression Status: Chronic (8) Diastolic CHF Status: Chronic (9) DM2 (diabetes mellitus, type 2) Status: Chronic (10) GERD (gastroesophageal reflux disease) Status: Chronic (11) HTN (hypertension) Status: Chronic (12) Hypothyroidism Status: Chronic Family History FH: cancer FH: diabetes mellitus BROTHER FH: heart disease BROTHER Kidney disease MOTHER Social History Smoking Status: Current Every Day Smoker Alcohol Use: none Drug Use: none Marital Status: Housing Status: lives with significant other Occupation Status: disabled Allergies Coded Allergies: Tomato (Verified Allergy, Severe, Hives, 11/14/16) Hives BEE STING (Verified Allergy, Mild, MOUTH SWELLING, 11/14/16) Penicillins (Verified Allergy, Unknown, RASH, 11/14/16) Prednisone (Verified Allergy, Unknown, SWELLING OG HANDS, ITCHING, RASH, ) INFO FROM [facility] Rosuvastatin (Verified Allergy, Unknown, SEVERE H/A, 11/14/16) Statins (Verified Adverse Reaction, Unknown, EFFECTED LIVER STUDIES, ) Home Medications Scheduled Amlodipine Besylate (Amlodipine Besylate), 5 MG PO DAILY Furosemide (Furosemide), 40 MG PO DAILY Metoprolol Tartrate (Lopressor) (Lopressor), 25 MG PO BID Mirtazapine (Remeron), 30 MG PO HS Montelukast Sodium (Montelukast Sodium), 1 TAB PO HS Nitroglycerin (Nitrostat), 0.4 MG UT PRN Potassium Gluconate (Potassium Gluconate), 2 TABS PO QPM Sertraline HCl (Sertraline HCl), 150 MG PO DAILY Sitagliptin Phosphate (Januvia), 50 MG PO DAILY Scheduled PRN Albuterol Hfa (Ventolin Hfa), 2 PUFFS INH Q6 PRN for SOB/Wheezing Current Inpatient Medications Current Inpatient Medications Medications (Trade) Dose Ordered Sig/Millie Route Start Time Stop Time Status Last Admin Dose Admin Acetaminophen (Tylenol Tab) 650 mg Q4H PRN PO 07/02/17 19:45 08/01/17 19:44 Heparin Sodium (Porcine) (Heparin Sq 5000 Unit/0.5ml) 5,000 unit Q8 SQ 07/03/17 07:00 08/02/17 06:59 07/03/17 08:45 5,000 UNIT Ondansetron HCl (Zofran Inj) 4 mg Q6H PRN IV 07/02/17 19:45 08/01/17 19:44 07/03/17 08:39 4 MG Albuterol (Ventolin Hfa Inhaler) 2 puffs Q6 PRN INH 07/02/17 20:15 08/01/17 20:14 Amlodipine Besylate (Norvasc Tab) 5 mg DAILY PO 07/03/17 09:00 08/02/17 08:59 07/03/17 08:30 5 MG Mirtazapine (Remeron Tab) 30 mg HS PO 07/02/17 21:00 08/01/17 20:59 07/02/17 22:34 30 MG Montelukast Sodium (Singulair Tab) 10 mg HS PO 07/02/17 21:00 08/01/17 20:59 07/02/17 22:33 10 MG Nitroglycerin (Nitrostat Tab) 0.4 mg PRN UT 07/02/17 20:15 08/01/17 20:14 Sertraline HCl (Zoloft Tab) 150 mg DAILY PO 07/03/17 09:00 08/02/17 08:59 07/03/17 08:48 150 MG Hydralazine HCl (HydrALAZINE INJ) 10 mg Q8 PRN IV. 07/02/17 20:30 08/01/17 20:29 07/03/17 08:40 10 MG Insulin Aspart (novoLOG ASPART) SLIDING SCALE If C... ACHS SC 07/02/17 21:00 08/01/17 20:59 07/03/17 11:46 1 UNITS Glucose (Glucose 40% Gel) 15-30 GRAMS 15 GRAMS... UD PRN PO 07/02/17 20:30 08/01/17 20:29 Glucose (Glucose Chew Tab) 4-8 Tablets 4 Tabl... UD PRN PO 07/02/17 20:30 08/01/17 20:29 Dextrose (Dextrose 50% 50ML Syringe) 25-50ML OF 50% DW IV FOR... UD PRN IV 07/02/17 20:30 08/01/17 20:29 Glucagon (Glucagon Inj) 1 mg UD PRN SQ 07/02/17 20:30 08/01/17 20:29 Ceftriaxone Sodium 1 gm/ Dextrose 50 ml @ 100 mls/hr Q24H IV 07/02/17 22:00 07/07/17 21:59 07/02/17 22:29 100 MLS/HR Zolpidem Tartrate (Ambien Tab) 5 mg HS PRN PO 07/02/17 22:45 4/25/18 22:44 Future Hold 07/03/17 00:32 5 MG Clonidine HCl ([id number]-7 0.1mg/24hr Patch) 1 patch CQWK@0200 TD 07/03/17 02:00 08/02/17 01:59 07/03/17 02:08 1 PATCH Miscellaneous Information (Check Clonidine Patch Placement) 1 ea QS N/A 07/03/17 08:00 08/02/17 07:59 07/03/17 08:41 1 EA Miscellaneous (Remove Clonidine Patch) 1 ea CQWK@0159 N/A 07/10/17 01:59 08/09/17 01:58 Metoprolol Tartrate (Lopressor Tab) 50 mg BID PO 07/03/17 21:00 08/02/17 20:59 Dextrose/Sodium Chloride 1,000 ml @ 75 mls/hr [id number] IV 07/03/17 10:00 08/02/17 09:59 07/03/17 10:01 75 MLS/HR Morphine Sulfate (MoRPHine SULFATE INJ) 2 mg Q2H PRN IV 07/03/17 10:00 07/17/17 09:59 07/03/17 10:01 2 MG Review of Systems Initially unable to obtain secondary to acute encephalopathy postictal state Constitutional: No fever, No chills Abdomen: + nausea, + vomiting, No pain Neurologic: No memory loss, No paralysis, No weakness Physical Exam Date Time Temp Pulse Resp B/P (MAP) Pulse Ox O2 Delivery O2 Flow Rate FiO2 07/03/17 13:02 60 12 154/64 (94) 94 Room Air 07/03/17 12:02 36.6 64 15 177/77 (110) 96 Room Air 07/03/17 12:00 Room Air 07/03/17 11:32 65 17 184/83 (116) 95 Room Air 07/03/17 11:17 64 14 214/88 (130) 96 Room Air 07/03/17 10:47 65 16 208/98 (134) 95 Room Air 07/03/17 10:31 68 23 208/90 (129) 94 Room Air 07/03/17 10:16 67 18 198/76 (116) 94 Room Air 07/03/17 10:01 67 13 188/80 (116) 95 Room Air 07/03/17 09:24 96 Room Air 07/03/17 09:08 36.8 07/03/17 08:47 65 19 200/108 (163) 99 07/03/17 08:45 62 21 99 07/03/17 08:33 62 16 231/118 (182) 100 07/03/17 08:30 63 16 99 07/03/17 08:17 63 22 211/92 (113) 99 07/03/17 08:15 65 27 218/105 (166) 99 07/03/17 08:02 69 17 205/121 (154) 99 07/03/17 08:00 66 20 99 07/03/17 07:56 67 13 205/116 (145) 99 Nasal Cannula 2.0 07/03/17 07:54 67 17 205/116 (169) 99 07/03/17 07:30 66 07/03/17 07:22 73 18 236/80 (131) 89 Room Air 07/03/17 07:22 68 16 212/77 (122) 100 Nasal Cannula 3.0 07/03/17 07:00 36.8 97 22 235/89 (137) 97 Room Air 97.0 07/03/17 04:00 95 Room Air 07/03/17 03:55 36.7 62 17 210/84 (126) 95 Room Air 07/03/17 00:37 58 207/85 (125) 07/03/17 00:00 36.8 61 18 209/83 (125) 99 Room Air 07/03/17 00:00 96 Room Air 07/02/17 21:30 37.2 66 208/96 96 Room Air 07/02/17 21:09 69 20 197/97 95 07/02/17 20:56 70 20 198/92 95 Room Air 07/02/17 20:00 62 16 206/114 96 Room Air 07/02/17 19:57 62 161/127 07/02/17 19:48 64 214/97 07/02/17 17:33 67 18 198/114 96 Room Air 07/02/17 17:25 72 07/02/17 15:02 36.8 76 18 190/96 96 Room Air NIH Stroke Scale: time: 823 1a. Level of consciousness: 0 alert 1b. LOC Questions: (Month, Age): 0 both correct 1c. LOC Commands: 0 both correct (Open and close eyes, make fist and let go) 2. Best Gaze: 0 normal Eyes open and patient follows examiner's finger or face: 3. Visual:(Visual Threat): 0 normal 4. Facial palsy: Normal 0 (show teeth, raise eye brows and squeeze eyes shut) 5a. Motor Arm: Left: 0 no drift Elevate arm to 90 degrees and score drift/movement: 5b. Motor arm: Right: 0 no drift Elevate arm to 90 degrees and score drift/movement: 6a. Motor Leg: Left: 0 no drift Elevate leg 30 degrees and score drift/ movement. 6b. Motor leg: Right: 0 no drift Elevate leg 30 degrees and score drift/ movement. 7. Limb Ataxia: 0 Finger-nose, heel down hines 8. Sensory: 1 mild to moderate loss (patient reports that this is at her baseline secondary to previous stroke) Pin prick to face, arm, trunk and leg: compare side to side. 9. Best Language: 0 Response to pictures 10. Dysarthria: 0 Evaluate speech clarity by patient repeating listed words. 11. Extinction and inattention: 0 Total: 1 - Contraindications to thrombolytic therapy: Seizure, uncontrolled hypertension - Intracranial hemorrhage on CT - Clinical presentation suggestive of subarachnoid hemorrhage - History of Intracranial hemorrhage - Neurosurgery, Head trauma, Stroke within 3 months - Known intracranial AV malformation, neoplasm, aneurysm - Active internal bleeding - Suspected & confirmed endocarditis - Known bleeding diathesis - PLT <100,000 - Heparin within 48 hours AND elevated aPTT - Current use of anticoagulants and/or INR > 1.7 - Blood Glucose > 400 mg/dL - Uncontrolled hypertension: SBP >185, DBP >110 - Warnings: Seizure - Minor or rapidly improving symptoms - Major surgery or serious trauma within 14 days - Hx of GI or hemorrhage within 21 days - Seizure at onset - Recent arterial puncture at noncompressible site - Recent lumbar puncture - Post TN pericarditis - Contraindications to >3- 4.5 hour time window IV thrombolysis: - Age > 80 - Hx of prior stroke or Diabetes - ANY anticoagulant use - NIHSS >25 - CT multilobar infarct (hypodensity >1/3 hemisphere General: Alert. nontoxic. Skin: Warm, dry, no obvious rash Head: Atraumatic Ears, nose, mouth and throat: airway patent Cardiovascular: Normal peripheral perfusion S1-S2 Respiratory: no respiratory distress scattered rhonchi Gastrointestinal: Non distended, no tenderness to palpation Musculoskeletal: No deformity Neuro: As noted above Laboratory Results Last 24 Hours Test 07/02/17 17:27 07/02/17 22:24 07/02/17 23:07 07/03/17 05:22 White Blood Count 9.56 K/uL 9.20 K/uL Red Blood Count 4.55 M/uL 4.13 M/uL Hemoglobin 12.7 g/dL 11.5 g/dL Hematocrit 36.4 % 33.5 % Mean Corpuscular Volume 80.0 fL 81.1 fL Mean Corpuscular Hemoglobin 27.9 pg 27.8 pg Mean Corpuscular Hemoglobin Concent 34.9 g/dl 34.3 g/dl Platelet Count 154 K/uL 160 K/uL Mean Platelet Volume 9.3 fL 9.5 fL Neutrophils (%) (Auto) 75.2 % Lymphocytes (%) (Auto) 18.8 % Monocytes (%) (Auto) 5.3 % Eosinophils (%) (Auto) 0.3 % Basophils (%) (Auto) 0.2 % Neutrophils # (Auto) 7.18 K/uL Lymphocytes # (Auto) 1.80 K/uL Monocytes # (Auto) 0.51 K/uL Eosinophils # (Auto) 0.03 K/uL Basophils # (Auto) 0.02 K/uL RDW Standard Deviation 45.7 fL 46.2 fL RDW Coefficient of Variation 15.4 % 15.6 % Immature Granulocyte % (Auto) 0.2 % Immature Granulocyte # (Auto) 0.02 K/uL Sodium Level 136 mmol/L 139 mmol/L Potassium Level 4.2 mmol/L 3.8 mmol/L Chloride Level 103 mmol/L 108 mmol/L Carbon Dioxide Level 24 mmol/L 21 mmol/L Anion Gap 9.0 mmol/L 10.0 mmol/L Blood Urea Nitrogen 44 mg/dl 37 mg/dl Creatinine 3.70 mg/dl 3.00 mg/dl Est Creatinine Clear Calc Drug Dose 12.9 ml/min 16.7 ml/min Estimated GFR () 13.7 17.6 Estimated GFR (Non- 11.8 15.2 BUN/Creatinine Ratio 12.0 12.3 Random Glucose 146 mg/dl 104 mg/dl Calcium Level 8.4 mg/dl 7.9 mg/dl Total Bilirubin 0.8 mg/dl Direct Bilirubin 0.2 mg/dl Aspartate Amino Transf (AST/SGOT) 18 U/L Alanine Aminotransferase (ALT/SGPT) 14 U/L Alkaline Phosphatase 85 U/L Troponin I < 0.015 ng/ml < 0.015 ng/ml < 0.015 ng/ml Total Protein 6.7 gm/dl Albumin 2.6 gm/dl Lipase 102 U/L Bedside Glucose 106 mg/dl Prothrombin Time 10.0 SECONDS Prothromb Time International Ratio 1.0 Estimated Average Glucose 180 mg/dl Hemoglobin A1c 7.9 % Magnesium Level 1.9 mg/dl Test 07/03/17 07:18 07/03/17 11:19 Bedside Glucose 119 mg/dl 170 mg/dl Diagnostic Results Reason Critically Ill: Hypertensive emergency with new onset seizure like activity PLAN: Neuro: Seizure-like activity - CT scan of the head reviewed - Neurology consult given new onset seizure Resp: History tobacco smoking -Quit 5+ years ago CV: Hypertensive emergency -Looking to achieve 10-20% reduction -Increase metoprolol to 50 mg twice daily -Start Norvasc 10 mg p.o. daily Fluids/Renal: Acute kidney injury in the setting of CKD stage IV -D5 half NS at 75 an hour for volume expansion will discontinue when taking adequate p.o. ID: Possible infectious cystitis -Patient already started on ceftriaxone every 24 hours, culture likely to remain sterile -Given local poor sensitivities to Bactrim, and Macrobid lower seizure threshold will continue with IV ceftriaxone for a total of 5 doses GI/Nutrition: Low-salt diet -Check fasting lipid profile Heme: DVT prophylaxis -Heparin 5000 every 8 hours Endocrine: ICU hyperglycemia protocol -Check A1c I have personally spent 85 minutes of critical care time in the direct management of this patient. This is a life/limb threatening event. This includes time spent evaluating patient, direct bedside care, chart review, placing orders, interpretation of diagnostic studies, discussion with consultants, patient, and/or family members regarding treatment decisions, as well as other required patient management activities. This time is exclusive of all separately billable procedures, and teaching time and separate from and in addition to any other critical care service time.
--- NOTE | 2017-07-03 18:11 | Progress Note ---
Internal Med Progress Note Date of Service: Jul 03, 2017. Provider Documentation: SUBJECTIVE: patient had an episode of seizure like activity and somnolent later possibly post ictal stage Because of hx of Cva an stroke aert was called but patient became more alert and was conversing in CT scan code stroke alert was cancelled patient is alert and awake now. Very talkative and sometimes goes tangent complains of pain in IV site afebrile BP elevated denies pain resting comfortably when checked later in the day and eating dinner OBJECTIVE: Vital Signs-as noted below Exam: General-alert and awake. Not in distress currently. ENT-Normal hearing Neck-no neck masses Lungs-cta b/l no wheezing no crackles present Heart-S1 and S2 heard regular rate and rhythm no murmurs . Abdomen-Soft bowel sounds present non tender no distension Extremities-no edema no erythema Neuro-alert and awake moves extremities non focal Lab data as noted below. ASSESSMENT & PLAN: This is a 67-year-old female with a past medical history of CKD IV, CAD (s/p CABG x 3 in 2007), HTN, DM II and other medical problems listed below who presents with nausea and vomiting 2 weeks. Today morning had an episode of seizure like activity. Seizures Encephalopathy which is resolved now possibly post ictal initially code purple was called and later stroke alert was called but cancelled as patinet became alert and conversing while getting ct scan Greatly appreciate critical care help Neurology consulted and appreciate inputs Ct head unremarkable ammonia lvel unremarkable will f/u eeg and mri head. close monitor in ICU for now Acute on chronic CKD IV: Recent viral infection possibly dehydration Presented with Cr of 3.7 t (from baseline ~2) received fluids cr 3.0 today Holding Lasix Nephro consulted f/u labs in am Nausea: Likely from uremia, cystitis Zofran PRN seemed to improved UTI: Oliguria, suprapubic pain Abd/pelvis CT with mild circumferential bladder wall thickening could suggest infectious cystitis plan to treat empirically with Rocephin for 5 days Headache: 2/2 dehydration hypertensive urgency Tylenol Hypertensive urgency: amlodipine, metoprolol metoprolol dose increased to 50mg bid on clonidine patch iv hydralazine prn close monitor CAD (s/p CABG x 3 in 2007): asymptomatic EKG no change DM II: Improved since weight loss hba1c 7.9 holding home meds on iss will monitor Mood disorder: on sertraline DVT Ppx: SQ heparin Code status: FULL per admission. PCP: Neda Mcmanus Dispo: monitor in icu Vital Signs: Date Time Temp Pulse Resp B/P (MAP) Pulse Ox O2 Delivery O2 Flow Rate FiO2 07/03/17 16:31 67 16 199/115 (143) 95 07/03/17 16:28 68 19 195/110 (138) 95 07/03/17 16:02 64 29 201/78 (119) 97 07/03/17 16:00 Room Air 07/03/17 15:31 59 16 173/87 (115) 94 07/03/17 15:02 60 13 161/91 (114) 96 07/03/17 14:31 57 16 173/92 (119) 96 07/03/17 14:19 61 17 194/89 (124) 97 07/03/17 14:02 60 10 166/67 (100) 97 07/03/17 13:02 60 12 154/64 (94) 94 Room Air 07/03/17 12:02 36.6 64 15 177/77 (110) 96 Room Air 07/03/17 12:00 Room Air 07/03/17 11:32 65 17 184/83 (116) 95 Room Air 07/03/17 11:17 64 14 214/88 (130) 96 Room Air 07/03/17 10:47 65 16 208/98 (134) 95 Room Air 07/03/17 10:31 68 23 208/90 (129) 94 Room Air 07/03/17 10:16 67 18 198/76 (116) 94 Room Air 07/03/17 10:01 67 13 188/80 (116) 95 Room Air 07/03/17 09:24 96 Room Air 07/03/17 09:08 36.8 07/03/17 08:47 65 19 200/108 (163) 99 07/03/17 08:45 62 21 99 07/03/17 08:33 62 16 231/118 (182) 100 07/03/17 08:30 63 16 99 07/03/17 08:17 63 22 211/92 (113) 99 07/03/17 08:15 65 27 218/105 (166) 99 07/03/17 08:02 69 17 205/121 (154) 99 07/03/17 08:00 66 20 99 3/27/18 07:56 67 13 205/116 (145) 99 Nasal Cannula 2.0 07/03/17 07:54 67 17 205/116 (169) 99 07/03/17 07:30 66 07/03/17 07:22 73 18 236/80 (131) 89 Room Air 07/03/17 07:22 68 16 212/77 (122) 100 Nasal Cannula 3.0 07/03/17 07:00 36.8 97 22 235/89 (137) 97 Room Air 97.0 07/03/17 04:00 95 Room Air 07/03/17 03:55 36.7 62 17 210/84 (126) 95 Room Air 07/03/17 00:37 58 207/85 (125) 07/03/17 00:00 36.8 61 18 209/83 (125) 99 Room Air 07/03/17 00:00 96 Room Air 07/02/17 21:30 37.2 66 208/96 96 Room Air 07/02/17 21:09 69 20 197/97 95 07/02/17 20:56 70 20 198/92 95 Room Air 07/02/17 20:00 62 16 206/114 96 Room Air 07/02/17 19:57 62 161/127 07/02/17 19:48 64 214/97 Lab Results: Results Past 24 Hours Test 07/02/17 22:24 07/02/17 23:07 07/03/17 05:22 07/03/17 07:18 Range/Units Bedside Glucose 106 119 70-90 mg/dl Troponin I < 0.015 < 0.015 0-0.045 ng/ml White Blood Count 9.20 4.8-10.8 K/uL Red Blood Count 4.13 4.2-5.4 M/uL Hemoglobin 11.5 12.0-16.0 g/dL Hematocrit 33.5 37-47 % Mean Corpuscular Volume 81.1 80-100 fL Mean Corpuscular Hemoglobin 27.8 25-34 pg Mean Corpuscular Hemoglobin Concent 34.3 32-36 g/dl RDW Standard Deviation 46.2 36.4-46.3 fL RDW Coefficient of Variation 15.6 11.5-14.5 % Platelet Count 160 130-400 K/uL Mean Platelet Volume 9.5 7.4-10.4 fL Prothrombin Time 10.0 9.0-12.0 SECONDS Prothromb Time International Ratio 1.0 0.9-1.1 Sodium Level 139 136-145 mmol/L Potassium Level 3.8 3.5-5.1 mmol/L Chloride Level 108 98-107 mmol/L Carbon Dioxide Level 21 21-32 mmol/L Anion Gap 10.0 3-11 mmol/L Blood Urea Nitrogen 37 7-18 mg/dl Creatinine 3.00 0.60-1.20 mg/dl Est Creatinine Clear Calc Drug Dose 16.7 ml/min Estimated GFR () 17.6 Estimated GFR (Non- 15.2 BUN/Creatinine Ratio 12.3 10-20 Random Glucose 104 70-99 mg/dl Estimated Average Glucose 180 mg/dl Hemoglobin A1c 7.9 4.5-5.6 % Calcium Level 7.9 8.5-10.1 mg/dl Magnesium Level 1.9 1.8-2.4 mg/dl Test 07/03/17 11:19 07/03/17 16:02 07/03/17 16:19 07/03/17 16:22 Range/Units Bedside Glucose 170 160 70-90 mg/dl Ammonia < 10.0 11-32 umol/L Microbiology Results 07/03/17 MRSA DNA Surveillance Screen - Final, Complete Specimen Negative for MRSA by DNA Probe
--- NOTE | 2017-07-03 18:16 | Nephrology Consultation ---
Nephrology Consultation Date of Consultation: Jul 03, 2017. Attending Physician: Dr Tristan Requesting Physician: Dr Tristan Reason for Consultation: HEBERT on CKD History of Present Illness 67 year old female admitted yesterday evening after presenting w/ several weeks of flu like symptoms and dehydration and a fall at home and found to have creatinine 3.7, up from baseline value of high ones. Her blood pressures were in 190s on presentation and remained elevated through the night. She was started on empiric rocephin for dysuria; she was unable initially to give a urine specimen. Other PMH includes DM since 1997 on po meds, HTN, stroke 2014, nephrotic range proteinuria, CAD. As I was preparing to see her this morning a stroke alert was called and she was moved to the ICU. Ultimately the team felt more concerned for hypertensive emergency in her case > she had elevated blood pressures all night w/ sbp in 190-230s, mostly in the 200s; nursing noted agitated and odd behavior all night. The patient got up to use the bathroom just prior to the code and on return to her bed she had tonic clonic seizure like activity followed by a somnolent state. However this possible postictal state resolved while she was in the CT scanner and her alertness and MS improved as did her neurologic exam to no focal deficits. When I saw her approximately 90 minutes later, she was alert and very anxious but able to give some history. Critical care, neurology, internal medicine are all following. She had a head CT negative for ICH. She was given labetalol and amlodipine around the time I evaluated her; she takes CCB as outpt. Her sbp this afternoon have been running in the 160-180s systolic for the most part. 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, follows w/ dr lopez in [facility]; baseline creatinine high ones as of 12/2016; CKD from age, htn, nsaids (stopped 2015) -CAD s/p 3V CABG -R HF -stroke 2014 -remote tobacco abuse -DM since 1997 -HTN -anxiety/depression -COPD reported -s/p JOEL / BSO -s/p L ankle ORIF Family History FH: cancer FH: diabetes mellitus BROTHER FH: heart disease BROTHER Kidney disease MOTHER Social History Smoking Status: Former Smoker Alcohol Use: none Drug Use: none Marital Status: Housing Status: lives with family, lives with significant other Occupation Status: disabled Allergies Coded Allergies: Tomato (Verified Allergy, Severe, Hives, 11/14/16) Hives BEE STING (Verified Allergy, Mild, MOUTH SWELLING, 11/14/16) Penicillins (Verified Allergy, Unknown, RASH, 11/14/16) Prednisone (Verified Allergy, Unknown, SWELLING OG HANDS, ITCHING, RASH, ) INFO FROM [facility] Rosuvastatin (Verified Allergy, Unknown, SEVERE H/A, 11/14/16) Statins (Verified Adverse Reaction, Unknown, EFFECTED LIVER STUDIES, ) Medications Current Inpatient Medications Medications (Trade) Dose Ordered Sig/Millie Route Start Time Stop Time Status Last Admin Dose Admin Acetaminophen (Tylenol Tab) 650 mg Q4H PRN PO 07/02/17 19:45 08/01/17 19:44 Heparin Sodium (Porcine) (Heparin Sq 5000 Unit/0.5ml) 5,000 unit Q8 SQ 07/03/17 07:00 08/02/17 06:59 07/03/17 16:25 5,000 UNIT Ondansetron HCl (Zofran Inj) 4 mg Q6H PRN IV 07/02/17 19:45 08/01/17 19:44 07/03/17 08:39 4 MG Albuterol (Ventolin Hfa Inhaler) 2 puffs Q6 PRN INH 07/02/17 20:15 08/01/17 20:14 Amlodipine Besylate (Norvasc Tab) 5 mg DAILY PO 07/03/17 09:00 08/02/17 08:59 07/03/17 08:30 5 MG Mirtazapine (Remeron Tab) 30 mg HS PO 07/02/17 21:00 08/01/17 20:59 07/02/17 22:34 30 MG Montelukast Sodium (Singulair Tab) 10 mg HS PO 07/02/17 21:00 08/01/17 20:59 07/02/17 22:33 10 MG Nitroglycerin (Nitrostat Tab) 0.4 mg PRN UT 07/02/17 20:15 08/01/17 20:14 Sertraline HCl (Zoloft Tab) 150 mg DAILY PO 07/03/17 09:00 08/02/17 08:59 07/03/17 08:48 150 MG Hydralazine HCl (HydrALAZINE INJ) 10 mg Q8 PRN IV. 07/02/17 20:30 08/01/17 20:29 07/03/17 16:32 10 MG Insulin Aspart (novoLOG ASPART) SLIDING SCALE If C... ACHS SC 07/02/17 21:00 08/01/17 20:59 07/03/17 11:46 1 UNITS Glucose (Glucose 40% Gel) 15-30 GRAMS 15 GRAMS... UD PRN PO 07/02/17 20:30 08/01/17 20:29 Glucose (Glucose Chew Tab) 4-8 Tablets 4 Tabl... UD PRN PO 07/02/17 20:30 08/01/17 20:29 Dextrose (Dextrose 50% 50ML Syringe) 25-50ML OF 50% DW IV FOR... UD PRN IV 07/02/17 20:30 08/01/17 20:29 Glucagon (Glucagon Inj) 1 mg UD PRN SQ 07/02/17 20:30 08/01/17 20:29 Ceftriaxone Sodium 1 gm/ Dextrose 50 ml @ 100 mls/hr Q24H IV 07/02/17 22:00 07/07/17 21:59 07/02/17 22:29 100 MLS/HR Zolpidem Tartrate (Ambien Tab) 5 mg HS PRN PO 07/02/17 22:45 08/01/17 22:44 Future Hold 07/03/17 00:32 5 MG Clonidine HCl (Kfjbijvv-Hrh-5 0.1mg/24hr Patch) 1 patch CQWK@0200 TD 07/03/17 02:00 08/02/17 01:59 07/03/17 02:08 1 PATCH Miscellaneous Information (Check Clonidine Patch Placement) 1 ea QS N/A 07/03/17 08:00 08/02/17 07:59 07/03/17 16:26 1 EA Miscellaneous (Remove Clonidine Patch) 1 ea CQWK@0159 N/A 07/10/17 01:59 08/09/17 01:58 Metoprolol Tartrate (Lopressor Tab) 50 mg BID PO 07/03/17 21:00 08/02/17 20:59 Morphine Sulfate (MoRPHine SULFATE INJ) 2 mg Q2H PRN IV 07/03/17 10:00 07/17/17 09:59 07/03/17 10:01 2 MG Magnesium Oxide (Mag-Ox Tab) 400 mg QAM PO 07/04/17 09:00 08/03/17 08:59 Magnesium Oxide (Mag-Ox Tab) 400 mg HS PO 07/03/17 21:00 08/02/17 20:59 Home Meds and Scripts Medications Dose Route/Sig Max Daily Dose Days Date Category Potassium Gluconate 595 Mg Tab 2 Tabs PO QPM 07/02/17 Reported Remeron (Mirtazapine) 30 Mg Tab 30 Mg PO HS 07/02/17 Reported Sertraline HCl 100 Mg Tab 150 Mg PO DAILY 07/02/17 Reported Ventolin Hfa (Albuterol) 200 Puffs/[id number] Mcg Aers 2 Puffs INH Q6 PRN 07/02/17 Reported Januvia (Sitagliptin Phosphate) 50 Mg Tab 50 Mg PO DAILY 07/02/17 Reported Lopressor (Metoprolol Tartrate) 25 Mg Tab 25 Mg PO BID 07/02/17 Reported Furosemide 40 Mg Tab 40 Mg PO DAILY 07/02/17 Reported Amlodipine Besylate 5 Mg Tab 5 Mg PO DAILY 07/02/17 Reported Nitrostat (Nitroglycerin) 0.4 Mg Sub 0.4 Mg UT PRN 11/14/16 Reported Montelukast Sodium 10 Mg Tab 1 Tab PO HS 90 11/14/16 Reported Review of Systems Constitutional: + weakness, + fatigue, No fever Eyes: + worsening of vision (c/o blurry vision at time of my eval) ENT: No hearing loss Respiratory: No shortness of breath Cardiac: No chest pain, No palpitations Abdomen: + pain (LUQ w/ palpation), + nausea, + vomiting (decreased po intake prior to admission w/ n/v x 2 wks) Musculoskeletal: + joint pain (L ribs) Female : + problem reported (c/o decreased uop, suprapubic pain) Neuro: + memory loss (c/o inability to concentrate/ follow her thoughts), + weakness, + balance problems, + problem reported (CARL) Psych: + anxiety, No depression symptoms Heme: No abnormal bleeding/bruising Endo: + fatigue Skin: No rash, No itch Physical Exam Date Time Temp Pulse Resp B/P (MAP) Pulse Ox O2 Delivery O2 Flow Rate FiO2 07/03/17 16:31 67 16 199/115 (143) 95 07/03/17 16:28 68 19 195/110 (138) 95 07/03/17 16:02 64 29 201/78 (119) 97 07/03/17 15:31 59 16 173/87 (115) 94 07/03/17 15:02 60 13 161/91 (114) 96 07/03/17 14:31 57 16 173/92 (119) 96 07/03/17 14:19 61 17 194/89 (124) 97 07/03/17 14:02 60 10 166/67 (100) 97 07/03/17 13:02 60 12 154/64 (94) 94 Room Air 07/03/17 12:02 36.6 64 15 177/77 (110) 96 Room Air 07/03/17 12:00 Room Air 07/03/17 11:32 65 17 184/83 (116) 95 Room Air 07/03/17 11:17 64 14 214/88 (130) 96 Room Air 07/03/17 10:47 65 16 208/98 (134) 95 Room Air 07/03/17 10:31 68 23 208/90 (129) 94 Room Air 07/03/17 10:16 67 18 198/76 (116) 94 Room Air 07/03/17 10:01 67 13 188/80 (116) 95 Room Air 07/03/17 09:24 96 Room Air 07/03/17 09:08 36.8 07/03/17 08:47 65 19 200/108 (163) 99 07/03/17 08:45 62 21 99 07/03/17 08:33 62 16 231/118 (182) 100 07/03/17 08:30 63 16 99 07/03/17 08:17 63 22 211/92 (113) 99 07/03/17 08:15 65 27 218/105 (166) 99 07/03/17 08:02 69 17 205/121 (154) 99 07/03/17 08:00 66 20 99 07/03/17 07:56 67 13 205/116 (145) 99 Nasal Cannula 2.0 07/03/17 07:54 67 17 205/116 (169) 99 07/03/17 07:30 66 07/03/17 07:22 73 18 236/80 (131) 89 Room Air 07/03/17 07:22 68 16 212/77 (122) 100 Nasal Cannula 3.0 07/03/17 07:00 36.8 97 22 235/89 (137) 97 Room Air 97.0 07/03/17 04:00 95 Room Air 07/03/17 03:55 36.7 62 17 210/84 (126) 95 Room Air 07/03/17 00:37 58 207/85 (125) 07/03/17 00:00 36.8 61 18 209/83 (125) 99 Room Air 07/03/17 00:00 96 Room Air 07/02/17 21:30 37.2 66 208/96 96 Room Air 07/02/17 21:09 69 20 197/97 95 07/02/17 20:56 70 20 198/92 95 Room Air 07/02/17 20:00 62 16 206/114 96 Room Air 07/02/17 19:57 62 161/127 07/02/17 19:48 64 214/97 07/02/17 17:33 67 18 198/114 96 Room Air 07/02/17 17:25 72 24-Hour Column 07/04/17 08:00 Intake Total 903 ml Output Total 950 ml Balance -47 ml General Appearance: + mild distress (anxious/ flight of ideas, on 02nc) Eyes: EOMI (perirobital edema) ENT: hearing grossly normal Neck: supple Respiratory/Chest: no respiratory distress, + decreased breath sounds Cardiovascular: regular rate, rhythm (in low 60s), no edema Abdomen: normal bowel sounds, soft, + pertinent finding (LUQ TTP/ guarding; no cutler) Extremities: no pedal edema Neurologic/Psych: alert (de paz, fluent speech; anxious/pressured speech), oriented x 3 Skin: no jaundice, warm/dry, no rash Diagnostics Last 24 Hours Test 07/02/17 17:27 07/02/17 22:24 07/02/17 23:07 07/03/17 05:22 White Blood Count 9.56 K/uL 9.20 K/uL Red Blood Count 4.55 M/uL 4.13 M/uL Hemoglobin 12.7 g/dL 11.5 g/dL Hematocrit 36.4 % 33.5 % Mean Corpuscular Volume 80.0 fL 81.1 fL Mean Corpuscular Hemoglobin 27.9 pg 27.8 pg Mean Corpuscular Hemoglobin Concent 34.9 g/dl 34.3 g/dl Platelet Count 154 K/uL 160 K/uL Mean Platelet Volume 9.3 fL 9.5 fL Neutrophils (%) (Auto) 75.2 % Lymphocytes (%) (Auto) 18.8 % Monocytes (%) (Auto) 5.3 % Eosinophils (%) (Auto) 0.3 % Basophils (%) (Auto) 0.2 % Neutrophils # (Auto) 7.18 K/uL Lymphocytes # (Auto) 1.80 K/uL Monocytes # (Auto) 0.51 K/uL Eosinophils # (Auto) 0.03 K/uL Basophils # (Auto) 0.02 K/uL RDW Standard Deviation 45.7 fL 46.2 fL RDW Coefficient of Variation 15.4 % 15.6 % Immature Granulocyte % (Auto) 0.2 % Immature Granulocyte # (Auto) 0.02 K/uL Sodium Level 136 mmol/L 139 mmol/L Potassium Level 4.2 mmol/L 3.8 mmol/L Chloride Level 103 mmol/L 108 mmol/L Carbon Dioxide Level 24 mmol/L 21 mmol/L Anion Gap 9.0 mmol/L 10.0 mmol/L Blood Urea Nitrogen 44 mg/dl 37 mg/dl Creatinine 3.70 mg/dl 3.00 mg/dl Est Creatinine Clear Calc Drug Dose 12.9 ml/min 16.7 ml/min Estimated GFR () 13.7 17.6 Estimated GFR (Non- 11.8 15.2 BUN/Creatinine Ratio 12.0 12.3 Random Glucose 146 mg/dl 104 mg/dl Calcium Level 8.4 mg/dl 7.9 mg/dl Total Bilirubin 0.8 mg/dl Direct Bilirubin 0.2 mg/dl Aspartate Amino Transf (AST/SGOT) 18 U/L Alanine Aminotransferase (ALT/SGPT) 14 U/L Alkaline Phosphatase 85 U/L Troponin I < 0.015 ng/ml < 0.015 ng/ml < 0.015 ng/ml Total Protein 6.7 gm/dl Albumin 2.6 gm/dl Lipase 102 U/L Bedside Glucose 106 mg/dl Prothrombin Time 10.0 SECONDS Prothromb Time International Ratio 1.0 Estimated Average Glucose 180 mg/dl Hemoglobin A1c 7.9 % Magnesium Level 1.9 mg/dl Test 07/03/17 07:18 07/03/17 11:19 07/03/17 16:02 07/03/17 16:19 Bedside Glucose 119 mg/dl 170 mg/dl Ammonia < 10.0 umol/L Test 07/03/17 16:22 Bedside Glucose 160 mg/dl Diagnostic Radiology: ct abd/pelvis non con >> mild circumferential bladder wall thickening ? cystitis / correlate; EKG: nsr; possible lateral ischemia Assessment & Plan 67 y/o F who fell at home just before coming to the ER for evaluation of several weeks of malaise and N and found to have creatinine up from baseline of about 2 to 3.7 on presentation last evening; moved to ICU this AM w/ HTN emergency and concern for possible seizure. HTN urgency w/ stroke alert called 07/03 am pt w/ anxiety; no consistent seizure behavior, no consistent neuro deficits; does have CARL, ? confusion; improved but not goal control -goal sbp is 160-180s next 24 hrs consistently -metoprolol dose upped; CCB continued; on clonidine has prn hydralazine -will add standing hydralazine w/ hold parameters HEBERT on CKD4 w/ nephrotic range proteinuria > at least in part prerenal -no indication for emergent dialysis; cannot rule out need this admission -will recheck bmp now -appears at least in part to be prerenal -monitor mag on this therapy for CARL w/ RF -for now agree w/ holding IVF as this can worsen BP; if poor po intake, consider D5 or 1/2 NS confusion/ anxiety -ordered CXR, blood cxs, TSH -her urine sediment is bland/ unlikely uti >> cont until XR and blood cxs -? EtOH though no hx of that reported appreciate consult; will follow with you.
[2017-07-03 19:06] LABS: CALCIUM 8.1 mg/dl (8.5-10.1); POTASSIUM 3.8 mmol/L (3.5-5.1)
--- NOTE | 2017-07-03 20:54 | DIAGNOSTIC IMAGING REPORT ---
BRAIN W/O FOR SEIZURE CLINICAL HISTORY: Seizure versus CVA mental status change TECHNIQUE: Multiaxial MRI acquisition COMPARISON STUDY: CT brain same date FINDINGS: Diffusion images are negative for an acute ischemic insult. There are findings of mild chronic small vessel change in the periventricular and deep white matter regions. The ventricular system is midline. The sella and parasellar regions are unremarkable. The internal auditory canals are symmetric. IMPRESSION: 1. Negative MRI of the brain for age. 2. Mild chronic small vessel change 3. No evidence for an acute ischemic insult. The above report was generated using voice recognition software. It may contain grammatical, syntax or spelling errors. Electronically signed by: Rad Ackerman M.D. 07/03/2017 8:53 PM Dictated Date/Time: 07/03/2017 8:50 PM
[2017-07-03] MEDS: HydrALAZINE 10 MG TAB PO SCH (21:18)
[2017-07-03] MEDS: MAGNESIUM OXIDE 400 MG TAB PO SCH (21:24)
[2017-07-03] MEDS: METOPROLOL TARTRATE 50 MG TAB PO SCH (21:24)
[2017-07-03] MEDS: MONTELUKAST SOD 10 MG TAB PO SCH (21:24)
[2017-07-03] MEDS: MIRTAZAPINE TAB 15 MG TAB PO SCH (21:25)
[2017-07-03] MEDS: CEFTRIAXONE SOD INJ 1 GM in DEXTROSE 5% ADD-VANTAGE 50ML 50 ML IV SCH (21:39)
--- NOTE | 2017-07-03 22:25 | DIAGNOSTIC IMAGING REPORT ---
CHEST ONE VIEW PORTABLE CLINICAL HISTORY: L rib pain/ fall trauma. Pain. COMPARISON STUDY: 04/24/2016 FINDINGS: Cardiomegaly. Prior median sternotomy. Prominent pulmonary vasculature. IMPRESSION: Congestive heart failure The above report was generated using voice recognition software. It may contain grammatical, syntax or spelling errors. Electronically signed by: Rad Ackerman M.D. 07/03/2017 10:24 PM Dictated Date/Time: 07/03/2017 10:23 PM
[2017-07-04] VITALS (26 sets, daily range): BP systolic 109–228; BP diastolic 52–118; PULSE 46–66; TEMP 36.3–37; O2SAT 83–96
[2017-07-04] MEDS: CHECK CLONIDINE PATCH PLACEMENT SCH ×3 (00:01→16:59)
[2017-07-04] MEDS: HEPARIN SOD 5000 UNIT/0.5 ML CARP SQ SCH ×3 (06:29→22:00)
[2017-07-04 06:42] LABS: CREATININE 2.92 mg/dl (0.60-1.20); POTASSIUM 3.8 mmol/L (3.5-5.1)
[2017-07-04 06:45] LABS: PHOSPHORUS 4.1 mg/dl (2.5-4.9)
[2017-07-04] MEDS: METOPROLOL TARTRATE 50 MG TAB PO SCH ×2 (07:38→21:00)
[2017-07-04] MEDS: HydrALAZINE 10 MG TAB PO SCH ×4 (07:39→21:00)
[2017-07-04] MEDS: AMLODIPINE BESYLATE 5 MG TAB PO SCH (07:40)
[2017-07-04] MEDS: SERTRALINE HCL 100 MG TAB PO SCH (07:45)
[2017-07-04] MEDS: INSULIN ASPART 100 UNITS/ML 3 ML PEN SC SCH ×4 (07:52→21:00)
[2017-07-04] MEDS ORDERED: AMLODIPINE BESYLATE 5 MG TAB PO SCH (09:00)
[2017-07-04] MEDS ORDERED: MAGNESIUM OXIDE 400 MG TAB PO SCH (09:00)
[2017-07-04] MEDS ORDERED: AMLODIPINE BESYLATE 5 MG TAB PO ONE (09:30)
--- NOTE | 2017-07-04 11:11 | Nephrology Progress Note ---
Nephrology Progress Note Date of Service: Jul 04, 2017. Subjective c/o diffuse abd pain; denies voiding sx, sob, n/v (sic), blurred vision, confusion like yesterday Objective Date Time Temp Pulse Resp B/P (MAP) Pulse Ox O2 Delivery O2 Flow Rate FiO2 07/04/17 06:02 55 14 152/81 (104) 07/04/17 05:33 59 17 167/75 (105) 94 07/04/17 05:01 49 12 167/75 (105) 95 07/04/17 04:03 36.7 52 16 171/62 (98) 96 07/04/17 04:00 Room Air 07/04/17 02:30 36.8 54 14 134/59 (84) 96 07/04/17 00:01 52 7 166/73 (104) 07/03/17 23:59 Room Air 07/03/17 23:31 52 13 138/73 (94) 07/03/17 23:01 53 10 158/92 (114) 07/03/17 22:01 62 19 184/102 (129) 07/03/17 21:32 64 20 176/91 (119) 07/03/17 21:14 65 21 203/82 (122) 07/03/17 21:01 63 21 184/95 (124) 07/03/17 20:57 63 21 160/74 (102) 96 07/03/17 20:00 Room Air 07/03/17 19:02 36.4 66 22 153/67 (95) 95 07/03/17 19:00 68 25 94 07/03/17 18:31 64 18 146/64 (91) 95 07/03/17 18:01 63 21 140/72 (94) 95 07/03/17 17:31 65 18 152/68 (96) 94 07/03/17 17:02 64 16 138/78 (98) 95 07/03/17 16:31 67 16 199/115 (143) 95 07/03/17 16:28 68 19 195/110 (138) 95 07/03/17 16:02 64 29 201/78 (119) 97 07/03/17 16:00 Room Air 07/03/17 15:31 59 16 173/87 (115) 94 07/03/17 15:02 60 13 161/91 (114) 96 3/27/18 14:31 57 16 173/92 (119) 96 07/03/17 14:19 61 17 194/89 (124) 97 07/03/17 14:02 60 10 166/67 (100) 97 07/03/17 13:02 60 12 154/64 (94) 94 Room Air 07/03/17 12:02 36.6 64 15 177/77 (110) 96 Room Air 07/03/17 12:00 Room Air 07/03/17 11:32 65 17 184/83 (116) 95 Room Air 07/03/17 11:17 64 14 214/88 (130) 96 Room Air 07/03/17 10:47 65 16 208/98 (134) 95 Room Air 07/03/17 10:31 68 23 208/90 (129) 94 Room Air 07/03/17 10:16 67 18 198/76 (116) 94 Room Air 07/03/17 10:01 67 13 188/80 (116) 95 Room Air 07/03/17 09:24 96 Room Air 07/03/17 09:08 36.8 Physical Exam: General Appearance: + mild distress (anxious/ flight of ideas, on RA) Eyes: EOMI (less perirobital edema) ENT: hearing grossly normal Neck: supple Respiratory/Chest: no respiratory distress, + decreased breath sounds Cardiovascular: regular rate, rhythm (in 50s), no edema Abdomen: normal bowel sounds, soft, + pertinent finding (diffuse nonreproducible TTP/ no guarding no rebound; no cutler) Extremities: no pedal edema Neurologic/Psych: alert (de paz, fluent speech; anxious/pressured speech), oriented x 3 Skin: no jaundice, warm/dry, no rash Current Inpatient Medications Medications (Trade) Dose Ordered Sig/Millie Route Start Time Stop Time Status Last Admin Dose Admin Acetaminophen (Tylenol Tab) 650 mg Q4H PRN PO 07/02/17 19:45 08/01/17 19:44 Heparin Sodium (Porcine) (Heparin Sq 5000 Unit/0.5ml) 5,000 unit Q8 SQ 07/03/17 07:00 08/02/17 06:59 07/04/17 06:29 5,000 UNIT Ondansetron HCl (Zofran Inj) 4 mg Q6H PRN IV 07/02/17 19:45 4/25/18 19:44 07/03/17 08:39 4 MG Albuterol (Ventolin Hfa Inhaler) 2 puffs Q6 PRN INH 07/02/17 20:15 08/01/17 20:14 Amlodipine Besylate (Norvasc Tab) 5 mg DAILY PO 07/03/17 09:00 08/02/17 08:59 07/04/17 07:40 5 MG Mirtazapine (Remeron Tab) 30 mg HS PO 07/02/17 21:00 08/01/17 20:59 07/03/17 21:25 30 MG Montelukast Sodium (Singulair Tab) 10 mg HS PO 07/02/17 21:00 08/01/17 20:59 07/03/17 21:24 10 MG Nitroglycerin (Nitrostat Tab) 0.4 mg PRN UT 07/02/17 20:15 08/01/17 20:14 Sertraline HCl (Zoloft Tab) 150 mg DAILY PO 07/03/17 09:00 08/02/17 08:59 07/04/17 07:45 150 MG Hydralazine HCl (HydrALAZINE INJ) 10 mg Q8 PRN IV. 07/02/17 20:30 08/01/17 20:29 07/03/17 16:32 10 MG Insulin Aspart (novoLOG ASPART) SLIDING SCALE If C... ACHS SC 07/02/17 21:00 08/01/17 20:59 07/04/17 07:52 3 UNITS Glucose (Glucose 40% Gel) 15-30 GRAMS 15 GRAMS... UD PRN PO 07/02/17 20:30 08/01/17 20:29 Glucose (Glucose Chew Tab) 4-8 Tablets 4 Tabl... UD PRN PO 07/02/17 20:30 08/01/17 20:29 Dextrose (Dextrose 50% 50ML Syringe) 25-50ML OF 50% DW IV FOR... UD PRN IV 07/02/17 20:30 08/01/17 20:29 Glucagon (Glucagon Inj) 1 mg UD PRN SQ 07/02/17 20:30 08/01/17 20:29 Ceftriaxone Sodium 1 gm/ Dextrose 50 ml @ 100 mls/hr Q24H IV 3/26/18 22:00 07/07/17 21:59 07/03/17 21:39 100 MLS/HR Zolpidem Tartrate (Ambien Tab) 5 mg HS PRN PO 07/02/17 22:45 08/01/17 22:44 Future Hold 07/03/17 00:32 5 MG Clonidine HCl (Znhchuua-Szn-8 0.1mg/24hr Patch) 1 patch CQWK@0200 TD 07/03/17 02:00 08/02/17 01:59 07/03/17 02:08 1 PATCH Miscellaneous Information (Check Clonidine Patch Placement) 1 ea QS N/A 07/03/17 08:00 08/02/17 07:59 07/04/17 07:45 1 EA Miscellaneous (Remove Clonidine Patch) 1 ea CQWK@0159 N/A 07/10/17 01:59 08/09/17 01:58 Metoprolol Tartrate (Lopressor Tab) 50 mg BID PO 07/03/17 21:00 08/02/17 20:59 07/04/17 07:38 50 MG Morphine Sulfate (MoRPHine SULFATE INJ) 2 mg Q2H PRN IV 07/03/17 10:00 07/17/17 09:59 07/03/17 23:09 2 MG Magnesium Oxide (Mag-Ox Tab) 400 mg HS PO 07/03/17 21:00 08/02/17 20:59 07/03/17 21:24 400 MG Hydralazine HCl (Apresoline Tab) 10 mg QID PO 07/03/17 21:00 08/02/17 20:59 07/04/17 07:39 10 MG Last 24 Hours Test 07/03/17 11:19 07/03/17 16:02 07/03/17 16:22 07/03/17 18:27 Bedside Glucose 170 mg/dl 160 mg/dl Ammonia < 10.0 umol/L Sodium Level 134 mmol/L Potassium Level 3.8 mmol/L Chloride Level 104 mmol/L Carbon Dioxide Level 21 mmol/L Anion Gap 9.0 mmol/L Blood Urea Nitrogen 37 mg/dl Creatinine 3.00 mg/dl Est Creatinine Clear Calc Drug Dose 16.6 ml/min Estimated GFR () 17.6 Estimated GFR (Non- 15.2 BUN/Creatinine Ratio 12.4 Random Glucose 238 mg/dl Calcium Level 8.1 mg/dl Thyroid Stimulating Hormone (TSH) 2.430 uIu/ml Test 07/03/17 21:31 07/04/17 05:50 Bedside Glucose 197 mg/dl Sodium Level 137 mmol/L Potassium Level 3.8 mmol/L Chloride Level 106 mmol/L Carbon Dioxide Level 22 mmol/L Anion Gap 9.0 mmol/L Blood Urea Nitrogen 37 mg/dl Creatinine 2.92 mg/dl Est Creatinine Clear Calc Drug Dose 17.0 ml/min Estimated GFR () 18.2 Estimated GFR (Non- 15.7 BUN/Creatinine Ratio 12.5 Random Glucose 145 mg/dl Calcium Level 8.0 mg/dl Phosphorus Level 4.1 mg/dl Magnesium Level 2.0 mg/dl Triglycerides Level 177 mg/dl Cholesterol Level 257 mg/dl HDL Cholesterol 52 mg/dl LDL Cholesterol, Calculated 170 mg/dl VLDL Cholesterol, Calculated 35 mg/dl Cholesterol/HDL Ratio 4.9 Date/Time Source Procedure Growth Status 07/03/17 18:27 Blood Blood Culture Pending Received 07/03/17 18:22 Blood Blood Culture Pending Received Other Studies: MRI w/o acute ischemia; CXR w/ HF Assessment & Plan 67 y/o F who fell at home just before coming to the ER for evaluation of several weeks of malaise and N and found to have creatinine up from baseline of about 2 to 3.7 on presentation 07/02; moved to ICU this AM w/ HTN emergency and concern for possible seizure. HTN urgency w/ stroke alert called 07/03 am pt w/ anxiety; no consistent seizure behavior, no consistent neuro deficits; does have CARL, ? confusion; improved but not goal control -goal sbp is 150-160s next 24 hrs consistently unless neurology has alternate parameters -metoprolol dose upped and standing hydralazine, clonidine started yesterday; CCB increased today; cont same including prn hydralazine -abd pain not c/w mesenteric ischemia; ? cause or chronicity HEBERT on CKD4 w/ nephrotic range proteinuria > at least in part prerenal; but ischemic ATN on differential as well given extremes of BP -no indication for emergent dialysis; cannot rule out need this admission -daily -appears at least in part to be prerenal -monitor mag on this therapy for CARL w/ RF >> acceptable today; cont to monitor -imaging w/ HF not c/w exam or VS > not getting IVF; would hold lasix another day if possible confusion/ anxiety -no clear cause; ? baseline MS for this pt -? EtOH though no hx of that reported appreciate consult; will follow with you. care coordinated w/ Drs. Tristan and Cristiano
--- NOTE | 2017-07-04 13:13 | ELECTROENCEPHALOGRAPH REPORT ---
REQUESTING PROVIDERS: Alisha Guajardo and Dr. Oneal Manzano. CLINICAL DIAGNOSIS: Confusion with syncopal event and increasing renal failure with tremor and asterixis. ELECTROENCEPHALOGRAPHY DIAGNOSIS: Very technically limited EEG due to muscle movement artifacts, but essentially normal during the brief duration intervals there are interpretable. DESCRIPTION OF TRACING: This EEG was done as a bedside recording with simultaneous video analysis of patient movement and behavior. Activation procedures were not utilized. The patient was somewhat agitated and continually moving throughout most of the recording and there is quite a bit of muscle movement artifact reflected in the cortical leads. Between the events of motion; however, there appears to be a background rhythm in the alpha range of up to 9-10 Hz of maximum frequency and 30 microvolts of maximum amplitude. This appears to be symmetrical in maximum bilateral in the occipital regions. Central theta activity seen in a symmetrical fashion also of modest voltage mid frequency. Beta activity is virtually impossible detect the overlying muscle artifact. There is no evidence for clearcut potentially epileptogenic activity but again activity of this type could easily have been missed and be masked by the movements that were recorded. INTERPRETATION: Overall, then this type of study is very technically limited, but the amounts of the tracing that are interpretable appear to be essentially normal, revealing no focal or generalized encephalopathy and no clear potentially epileptogenic activity.
--- NOTE | 2017-07-04 13:42 | Neurology Progress Notes ---
Neurology Progress Note Date of Service Jul 04, 2017. Houston Le is a 67 year old female with a PMH CKD IV, CAD (s/p CABG x 3 in 2007) , HTN, DM II, diastolic CHF who presented with nausea and vomiting 2 weeks. 3 weeks ago, she had the flu with diarrhea in addition to myalgias and body aches. Completed a Z pack and a course of probiotics. Over the course of the last 2 weeks, patient has been experiencing worsening nausea, vomiting and decreased appetite/fluid intake and unable to keep her medications down. Over the last week, patient has had difficulty making urine and suprapubic pain. Thinks that her blood sugar is low but has not checked it at home. She has a frontal headache currently that feels similar to previous migraines. Was getting dressed to come to the ED today when she lost her balance and fell forward onto her chest. She had a 300 pound weight loss and panniculectomy at [facility] in 2005. was recently diagnosed with cancer and patient admits increased stress and feeling distracted from managing her own health. Follows with Dr. Lucero for nephrology and Dr. Neda Mcmanus for PCP. Is a smoker. This am she got up to go to the bathroom and was found obtunded on the floor. She had no incontinence but was hard to arouse and a stroke alert was called. There is no new one sided weakness or slurred speech. Today she states she is feeling better and the headache is improving. Her blood pressure is improve she know they increase some of her blood pressure medications. She was told she is getting transferred upstairs today. denies CP , SOB, abdominal pain, N, V. Objective Date Time Temp Pulse Resp B/P (MAP) Pulse Ox O2 Delivery O2 Flow Rate FiO2 07/04/17 11:30 Room Air 07/04/17 11:30 37.0 55 16 155/74 (101) 96 Room Air 07/04/17 11:15 54 14 152/118 (129) 07/04/17 11:02 46 20 152/118 (129) 83 07/04/17 11:00 56 25 07/04/17 10:02 51 14 155/74 (101) 95 07/04/17 10:00 51 23 96 07/04/17 09:30 37.0 52 16 153/54 (87) 95 Room Air 07/04/17 09:18 50 15 153/54 (87) 95 07/04/17 09:00 55 18 92 07/04/17 08:02 57 14 172/67 (102) 94 07/04/17 08:00 60 25 94 07/04/17 07:46 60 27 185/94 (124) 94 07/04/17 07:30 94 Room Air 2.0 07/04/17 07:30 36.7 66 16 186/83 (117) 94 Room Air 2.0 07/04/17 07:02 58 21 186/83 (117) 95 07/04/17 07:00 60 21 95 07/04/17 06:02 55 14 152/81 (104) 07/04/17 05:33 59 17 167/75 (105) 94 07/04/17 05:01 49 12 167/75 (105) 95 07/04/17 04:03 36.7 52 16 171/62 (98) 96 07/04/17 04:00 Room Air 07/04/17 02:30 36.8 54 14 134/59 (84) 96 07/04/17 00:01 52 7 166/73 (104) 07/03/17 23:59 Room Air 07/03/17 23:31 52 13 138/73 (94) 07/03/17 23:01 53 10 158/92 (114) 07/03/17 22:01 62 19 184/102 (129) 07/03/17 21:32 64 20 176/91 (119) 07/03/17 21:14 65 21 203/82 (122) 07/03/17 21:01 63 21 184/95 (124) 07/03/17 20:57 63 21 160/74 (102) 96 07/03/17 20:00 Room Air 07/03/17 19:02 36.4 66 22 153/67 (95) 95 07/03/17 19:00 68 25 94 07/03/17 18:31 64 18 146/64 (91) 95 07/03/17 18:01 63 21 140/72 (94) 95 07/03/17 17:31 65 18 152/68 (96) 94 07/03/17 17:02 64 16 138/78 (98) 95 07/03/17 16:31 67 16 199/115 (143) 95 07/03/17 16:28 68 19 195/110 (138) 95 07/03/17 16:02 64 29 201/78 (119) 97 07/03/17 16:00 Room Air 07/03/17 15:31 59 16 173/87 (115) 94 07/03/17 15:02 60 13 161/91 (114) 96 07/03/17 14:31 57 16 173/92 (119) 96 07/03/17 14:19 61 17 194/89 (124) 97 07/03/17 14:02 60 10 166/67 (100) 97 Last 24 Hours Test 07/03/17 16:02 07/03/17 16:22 07/03/17 18:27 07/03/17 21:31 Ammonia < 10.0 umol/L Bedside Glucose 160 mg/dl 197 mg/dl Sodium Level 134 mmol/L Potassium Level 3.8 mmol/L Chloride Level 104 mmol/L Carbon Dioxide Level 21 mmol/L Anion Gap 9.0 mmol/L Blood Urea Nitrogen 37 mg/dl Creatinine 3.00 mg/dl Est Creatinine Clear Calc Drug Dose 16.6 ml/min Estimated GFR () 17.6 Estimated GFR (Non- 15.2 BUN/Creatinine Ratio 12.4 Random Glucose 238 mg/dl Calcium Level 8.1 mg/dl Thyroid Stimulating Hormone (TSH) 2.430 uIu/ml Test 07/04/17 05:50 Sodium Level 137 mmol/L Potassium Level 3.8 mmol/L Chloride Level 106 mmol/L Carbon Dioxide Level 22 mmol/L Anion Gap 9.0 mmol/L Blood Urea Nitrogen 37 mg/dl Creatinine 2.92 mg/dl Est Creatinine Clear Calc Drug Dose 17.0 ml/min Estimated GFR () 18.2 Estimated GFR (Non- 15.7 BUN/Creatinine Ratio 12.5 Random Glucose 145 mg/dl Calcium Level 8.0 mg/dl Phosphorus Level 4.1 mg/dl Magnesium Level 2.0 mg/dl Triglycerides Level 177 mg/dl Cholesterol Level 257 mg/dl HDL Cholesterol 52 mg/dl LDL Cholesterol, Calculated 170 mg/dl VLDL Cholesterol, Calculated 35 mg/dl Cholesterol/HDL Ratio 4.9 Imaging: MRI brain- Diffusion images are negative for an acute ischemic insult. There are findings of mild chronic small vessel change in the periventricular and deep white matter regions. The ventricular system is midline. The sella and parasellar regions are unremarkable. The internal auditory canals are symmetric. CXR- Congestive heart failure EEG this type of study is very technically limited, but the amounts of the tracing that are interpretable appear to be essentially normal, revealing no focal or generalized encephalopathy and no clear potentially epileptogenic activity. Exam: Physical Exam: Constitutional: appearance nourished, healthy and normal, tangental speech Ears, Nose, Mouth and Throat: mucous membranes moist, no injection and skin normal, eyes normal Cardiovascular: normal S-1 and S-2 and regular rate and rhythm Respiratory: course breath sounds Musculoskeletal: no peripheral edema Skin: no stigmata of neurocutaneous disease noted and normal and intact Eyes: extraocular muscles intact (EOMI) and pupils equal, round and reactive to light (PERRL) NEUROLOGIC EXAMINATION: Mental status: Alert and interactive Oriented to place and date, [facility], 2018 Oriented to person Speech fluent with no evidence of aphasia Cranial Nerves facial symmetry Reflexes: Deep tendon reflexes were symmetrical and graded 2/5. Plantar responses were flexor. Sensory: to cool or light touch Coordination: finger to nose no bi pass Gait/Stance: Posture sitting in bed able to sit up and move in bed with out assistance Motor: Negative for pronator drift of out stretched arms with eyes closed. 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 , hip flex plantar flex ext 5/5 bilaterally Current Inpatient Medications Medications (Trade) Dose Ordered Sig/Millie Route Start Time Stop Time Status Last Admin Dose Admin Acetaminophen (Tylenol Tab) 650 mg Q4H PRN PO 07/02/17 19:45 08/01/17 19:44 Heparin Sodium (Porcine) (Heparin Sq 5000 Unit/0.5ml) 5,000 unit Q8 SQ 07/03/17 07:00 08/02/17 06:59 07/04/17 06:29 5,000 UNIT Ondansetron HCl (Zofran Inj) 4 mg Q6H PRN IV 07/02/17 19:45 08/01/17 19:44 07/03/17 08:39 4 MG Albuterol (Ventolin Hfa Inhaler) 2 puffs Q6 PRN INH 07/02/17 20:15 08/01/17 20:14 Mirtazapine (Remeron Tab) 30 mg HS PO 07/02/17 21:00 08/01/17 20:59 07/03/17 21:25 30 MG Montelukast Sodium (Singulair Tab) 10 mg HS PO 07/02/17 21:00 08/01/17 20:59 07/03/17 21:24 10 MG Nitroglycerin (Nitrostat Tab) 0.4 mg PRN UT 07/02/17 20:15 08/01/17 20:14 Sertraline HCl (Zoloft Tab) 150 mg DAILY PO 07/03/17 09:00 08/02/17 08:59 07/04/17 07:45 150 MG Hydralazine HCl (HydrALAZINE INJ) 10 mg Q8 PRN IV. 07/02/17 20:30 08/01/17 20:29 07/03/17 16:32 10 MG Insulin Aspart (novoLOG ASPART) SLIDING SCALE If C... ACHS SC 07/02/17 21:00 08/01/17 20:59 07/04/17 12:01 5 UNITS Glucose (Glucose 40% Gel) 15-30 GRAMS 15 GRAMS... UD PRN PO 07/02/17 20:30 08/01/17 20:29 Glucose (Glucose Chew Tab) 4-8 Tablets 4 Tabl... UD PRN PO 07/02/17 20:30 08/01/17 20:29 Dextrose (Dextrose 50% 50ML Syringe) 25-50ML OF 50% DW IV FOR... UD PRN IV 07/02/17 20:30 08/01/17 20:29 Glucagon (Glucagon Inj) 1 mg UD PRN SQ 07/02/17 20:30 08/01/17 20:29 Zolpidem Tartrate (Ambien Tab) 5 mg HS PRN PO 07/02/17 22:45 08/01/17 22:44 Future Hold 07/03/17 00:32 5 MG Clonidine HCl (Kpgoqfxd-Eux-7 0.1mg/24hr Patch) 1 patch CQWK@0200 TD 07/03/17 02:00 08/02/17 01:59 07/03/17 02:08 1 PATCH Miscellaneous Information (Check Clonidine Patch Placement) 1 ea QS N/A 07/03/17 08:00 08/02/17 07:59 07/04/17 07:45 1 EA Miscellaneous (Remove Clonidine Patch) 1 ea CQWK@0159 N/A 07/10/17 01:59 08/09/17 01:58 Metoprolol Tartrate (Lopressor Tab) 50 mg BID PO 07/03/17 21:00 08/02/17 20:59 07/04/17 07:38 50 MG Morphine Sulfate (MoRPHine SULFATE INJ) 2 mg Q2H PRN IV 07/03/17 10:00 07/17/17 09:59 07/03/17 23:09 2 MG Magnesium Oxide (Mag-Ox Tab) 400 mg HS PO 07/03/17 21:00 08/02/17 20:59 07/03/17 21:24 400 MG Hydralazine HCl (Apresoline Tab) 10 mg QID PO 07/03/17 21:00 08/02/17 20:59 07/04/17 12:43 10 MG Amlodipine Besylate (Norvasc Tab) 10 mg DAILY PO 07/05/17 09:00 08/04/17 08:59 Cefdinir (Omnicef Cap) 300 mg DAILY@2100 PO 07/04/17 21:00 07/06/17 21:01 Impression 67 year old female with CKD s/p flu symptoms and dehydration with unresponsive episode Plan 1. EEG - for possible new onset seizure- no clear evidence of seizure activity 2. MRI brain with and without for seizure focus or area of stroke- no acute findings 3. optimize DM,HTN, DL LDL <70 4. not clear what morning event was likely vasovagal event 5. on going issues with HTN, CKD improving 6. headache will add Mg++ 400 mg daily 7. no triptans for headache due to HTN and stroke risk 8. tylenol for headache 9. correct metabolic issues I have seen and discussed above patient with Dr Oneal Manzano, neurology Paatient seen and examined alert oriented digressive and tremulous but this is apparently her baseline according to Alisha Tracey eeg technically limited due to continuous movements but between them there was no evidence for seizure activity or potential seizure patterns suspect a toxic metabolic encephalopathy that is now resolving and hypotensive syncope headache resolved and it too was likely toxid superimposed on her migraine background will see for a few more daysbut at this point neurology has no further recommendations than those listed above Oneal Manzano MD
[2017-07-04] MEDS: HydrALAZINE HCL 20 MG/ML VIAL IV. PRN (13:43)
[2017-07-04] MEDS: ONDANSETRON INJ 2 MG/ML 2 ML VIAL IV PRN (13:46)
--- NOTE | 2017-07-04 14:35 | Critical Care Progress Note ---
Critical Care Progress Note Date of Service Jul 04, 2017. ICU Day ICU Day Number: [address] Quinonez Subjective No overnight events Objective General: Alert. nontoxic. Skin: Warm, dry, Head: Atraumatic Ears, nose, mouth and throat: airway patent Cardiovascular: Normal peripheral perfusion Respiratory: no respiratory distress Gastrointestinal: Non distended Musculoskeletal: No deformity Assessment & Plan PLAN: Neuro: Episode of unresponsiveness - CT scan of the head reviewed - Neurology consult reviewed -MRI reviewed insert first EEG reviewed Resp: History tobacco smoking -Quit 5+ years ago CV: Hypertensive emergency -Improved hemodynamics -increase Norvasc to 10 mg daily was 5 mg yesterday Fluids/Renal: Acute kidney injury in the setting of CKD stage IV -Mild creatinine improvement from 3-2.92 ID: Possible infectious cystitis -Patient already started on ceftriaxone every 24 hours, culture likely to remain sterile -Converted to Ceftin ear for 5 days effective treatment GI/Nutrition: Low-salt diet -Elevated cholesterol at 257 with elevated triglycerides at 177 -Patient reports adverse reaction to statins: Affected liver studies -Encouraged follow-up with primary care provider for possible diet modifications as well as possible bile binding resins Heme: DVT prophylaxis -Heparin 5000 every 8 hours Endocrine: ICU hyperglycemia protocol - A1c: 7.9 -lead carpenter consult -Would consider additional therapy beyond Januvia especially in the setting of chronic kidney disease, may require dose adjustments 25 daily Stable for downgrade out of ICU to telemetry status Medically complex, I discussed the case with Dr. Ramirez of nephrology. Consults & Procedures Consultants: Neurology Nephrology Data Medications: Current Inpatient Medications Medications (Trade) Dose Ordered Sig/Millie Route Start Time Stop Time Status Last Admin Dose Admin Acetaminophen (Tylenol Tab) 650 mg Q4H PRN PO 07/02/17 19:45 08/01/17 19:44 Heparin Sodium (Porcine) (Heparin Sq 5000 Unit/0.5ml) 5,000 unit Q8 SQ 07/03/17 07:00 08/02/17 06:59 07/04/17 14:02 5,000 UNIT Ondansetron HCl (Zofran Inj) 4 mg Q6H PRN IV 07/02/17 19:45 08/01/17 19:44 07/04/17 13:46 4 MG Albuterol (Ventolin Hfa Inhaler) 2 puffs Q6 PRN INH 07/02/17 20:15 08/01/17 20:14 Mirtazapine (Remeron Tab) 30 mg HS PO 07/02/17 21:00 08/01/17 20:59 07/03/17 21:25 30 MG Montelukast Sodium (Singulair Tab) 10 mg HS PO 07/02/17 21:00 08/01/17 20:59 07/03/17 21:24 10 MG Nitroglycerin (Nitrostat Tab) 0.4 mg PRN UT 07/02/17 20:15 08/01/17 20:14 Sertraline HCl (Zoloft Tab) 150 mg DAILY PO 07/03/17 09:00 08/02/17 08:59 07/04/17 07:45 150 MG Hydralazine HCl (HydrALAZINE INJ) 10 mg Q8 PRN IV. 07/02/17 20:30 08/01/17 20:29 07/04/17 13:43 10 MG Insulin Aspart (novoLOG ASPART) SLIDING SCALE If C... ACHS SC 07/02/17 21:00 08/01/17 20:59 07/04/17 12:01 5 UNITS Glucose (Glucose 40% Gel) 15-30 GRAMS 15 GRAMS... UD PRN PO 07/02/17 20:30 08/01/17 20:29 Glucose (Glucose Chew Tab) 4-8 Tablets 4 Tabl... UD PRN PO 07/02/17 20:30 08/01/17 20:29 Dextrose (Dextrose 50% 50ML Syringe) 25-50ML OF 50% DW IV FOR... UD PRN IV 07/02/17 20:30 08/01/17 20:29 Glucagon (Glucagon Inj) 1 mg UD PRN SQ 07/02/17 20:30 08/01/17 20:29 Zolpidem Tartrate (Ambien Tab) 5 mg HS PRN PO 07/02/17 22:45 08/01/17 22:44 Future Hold 07/03/17 00:32 5 MG Clonidine HCl (Bwdntvhv-Jad-2 0.1mg/24hr Patch) 1 patch CQWK@0200 TD 07/03/17 02:00 08/02/17 01:59 07/03/17 02:08 1 PATCH Miscellaneous Information (Check Clonidine Patch Placement) 1 ea QS N/A 07/03/17 08:00 08/02/17 07:59 07/04/17 07:45 1 EA Miscellaneous (Remove Clonidine Patch) 1 ea CQWK@0159 N/A 07/10/17 01:59 08/09/17 01:58 Metoprolol Tartrate (Lopressor Tab) 50 mg BID PO 07/03/17 21:00 08/02/17 20:59 07/04/17 07:38 50 MG Morphine Sulfate (MoRPHine SULFATE INJ) 2 mg Q2H PRN IV 07/03/17 10:00 07/17/17 09:59 07/03/17 23:09 2 MG Magnesium Oxide (Mag-Ox Tab) 400 mg HS PO 07/03/17 21:00 08/02/17 20:59 07/03/17 21:24 400 MG Hydralazine HCl (Apresoline Tab) 10 mg QID PO 07/03/17 21:00 08/02/17 20:59 07/04/17 12:43 10 MG Amlodipine Besylate (Norvasc Tab) 10 mg DAILY PO 07/05/17 09:00 08/04/17 08:59 Cefdinir (Omnicef Cap) 300 mg DAILY@2100 PO 07/04/17 21:00 07/06/17 21:01 I & O: 24-Hour Column 07/05/17 08:00 Intake Total 850 ml Output Total 550 ml Balance 300 ml Vital Signs: Date Time Temp Pulse Resp B/P (MAP) Pulse Ox O2 Delivery O2 Flow Rate FiO2 07/04/17 14:03 36.4 55 16 152/62 (92) 96 Room Air 07/04/17 13:53 36.4 55 16 197/92 (127) 96 Room Air 07/04/17 13:42 37.0 55 16 228/80 (129) 96 Room Air 07/04/17 11:30 Room Air 07/04/17 11:30 37.0 55 16 155/74 (101) 96 Room Air 07/04/17 11:15 54 14 152/118 (129) 07/04/17 11:02 46 20 152/118 (129) 83 07/04/17 11:00 56 25 07/04/17 10:02 51 14 155/74 (101) 95 3/28/18 10:00 51 23 96 07/04/17 09:30 37.0 52 16 153/54 (87) 95 Room Air 07/04/17 09:18 50 15 153/54 (87) 95 07/04/17 09:00 55 18 92 07/04/17 08:02 57 14 172/67 (102) 94 07/04/17 08:00 60 25 94 07/04/17 07:46 60 27 185/94 (124) 94 07/04/17 07:30 94 Room Air 2.0 07/04/17 07:30 36.7 66 16 186/83 (117) 94 Room Air 2.0 07/04/17 07:02 58 21 186/83 (117) 95 07/04/17 07:00 60 21 95 07/04/17 06:02 55 14 152/81 (104) 07/04/17 05:33 59 17 167/75 (105) 94 07/04/17 05:01 49 12 167/75 (105) 95 07/04/17 04:03 36.7 52 16 171/62 (98) 96 07/04/17 04:00 Room Air 07/04/17 02:30 36.8 54 14 134/59 (84) 96 07/04/17 00:01 52 7 166/73 (104) 07/03/17 23:59 Room Air 07/03/17 23:31 52 13 138/73 (94) 07/03/17 23:01 53 10 158/92 (114) 07/03/17 22:01 62 19 184/102 (129) 07/03/17 21:32 64 20 176/91 (119) 07/03/17 21:14 65 21 203/82 (122) 07/03/17 21:01 63 21 184/95 (124) 07/03/17 20:57 63 21 160/74 (102) 96 07/03/17 20:00 Room Air 07/03/17 19:02 36.4 66 22 153/67 (95) 95 07/03/17 19:00 68 25 94 07/03/17 18:31 64 18 146/64 (91) 95 07/03/17 18:01 63 21 140/72 (94) 95 3/27/18 17:31 65 18 152/68 (96) 94 07/03/17 17:02 64 16 138/78 (98) 95 07/03/17 16:31 67 16 199/115 (143) 95 07/03/17 16:28 68 19 195/110 (138) 95 07/03/17 16:02 64 29 201/78 (119) 97 07/03/17 16:00 Room Air 07/03/17 15:31 59 16 173/87 (115) 94 07/03/17 15:02 60 13 161/91 (114) 96 07/03/17 14:31 57 16 173/92 (119) 96 Laboratory Results: Last 24 Hours Test 07/03/17 16:02 07/03/17 16:22 07/03/17 18:27 07/03/17 21:31 Ammonia < 10.0 umol/L Bedside Glucose 160 mg/dl 197 mg/dl Sodium Level 134 mmol/L Potassium Level 3.8 mmol/L Chloride Level 104 mmol/L Carbon Dioxide Level 21 mmol/L Anion Gap 9.0 mmol/L Blood Urea Nitrogen 37 mg/dl Creatinine 3.00 mg/dl Est Creatinine Clear Calc Drug Dose 16.6 ml/min Estimated GFR () 17.6 Estimated GFR (Non- 15.2 BUN/Creatinine Ratio 12.4 Random Glucose 238 mg/dl Calcium Level 8.1 mg/dl Thyroid Stimulating Hormone (TSH) 2.430 uIu/ml Test 07/04/17 05:50 Sodium Level 137 mmol/L Potassium Level 3.8 mmol/L Chloride Level 106 mmol/L Carbon Dioxide Level 22 mmol/L Anion Gap 9.0 mmol/L Blood Urea Nitrogen 37 mg/dl Creatinine 2.92 mg/dl Est Creatinine Clear Calc Drug Dose 17.0 ml/min Estimated GFR () 18.2 Estimated GFR (Non- 15.7 BUN/Creatinine Ratio 12.5 Random Glucose 145 mg/dl Calcium Level 8.0 mg/dl Phosphorus Level 4.1 mg/dl Magnesium Level 2.0 mg/dl Triglycerides Level 177 mg/dl Cholesterol Level 257 mg/dl HDL Cholesterol 52 mg/dl LDL Cholesterol, Calculated 170 mg/dl VLDL Cholesterol, Calculated 35 mg/dl Cholesterol/HDL Ratio 4.9
[2017-07-04] MEDS: MAGNESIUM OXIDE 400 MG TAB PO SCH (21:00)
[2017-07-04] MEDS: MONTELUKAST SOD 10 MG TAB PO SCH (21:00)
[2017-07-04] MEDS: CEFDINIR 300 MG CAP PO SCH (21:00)
[2017-07-04] MEDS: MIRTAZAPINE TAB 15 MG TAB PO SCH (21:00)
[2017-07-05] VITALS (8 sets, daily range): BP systolic 112–190; BP diastolic 59–107; PULSE 50–101; TEMP 36.4–36.8; O2SAT 92–97
[2017-07-05] MEDS: CHECK CLONIDINE PATCH PLACEMENT SCH ×2 (00:03→07:32)
[2017-07-05] MEDS: HEPARIN SOD 5000 UNIT/0.5 ML CARP SQ SCH ×3 (06:00→21:34)
[2017-07-05] MEDS ORDERED: OLANZAPINE 10 MG/2.1 ML SDV IM STA (06:41)
[2017-07-05 07:00] LABS: HEMATOCRIT 36.4 % (37-47); HEMOGLOBIN 11.9 g/dL (12.0-16.0); MEAN CORPUSCULAR HEMOGLOBIN 26.8 pg (25-34); MEAN CORPUSCULAR HGB CONC 32.7 g/dl (32-36); MEAN PLATELET VOLUME 9.5 fL (7.4-10.4); PLATELET COUNT 222 K/uL (130-400); RED CELL DISTRIBUTION WIDTH CV 15.9 % (11.5-14.5); RED CELL DISTRIBUTION WIDTH SD 47.5 fL (36.4-46.3); WHITE BLOOD COUNT 7.72 K/uL (4.8-10.8)
[2017-07-05 07:31] LABS: CALCIUM 8.3 mg/dl (8.5-10.1); CREATININE 2.99 mg/dl (0.60-1.20); POTASSIUM 3.8 mmol/L (3.5-5.1)
[2017-07-05] MEDS: ACETAMINOPHEN 325 MG TAB PO PRN ×2 (07:33→14:07)
[2017-07-05] MEDS: METOPROLOL TARTRATE 50 MG TAB PO SCH ×2 (07:34→21:16)
[2017-07-05] MEDS: AMLODIPINE BESYLATE 5 MG TAB PO SCH (07:34)
[2017-07-05] MEDS: SERTRALINE HCL 100 MG TAB PO SCH (07:35)
[2017-07-05] MEDS: HydrALAZINE 10 MG TAB PO SCH ×4 (07:36→21:13)
[2017-07-05] MEDS: INSULIN ASPART 100 UNITS/ML 3 ML PEN SC SCH ×4 (08:02→21:00)
--- NOTE | 2017-07-05 09:37 | Progress Note ---
Internal Med Progress Note Date of Service: Jul 04, 2017. Provider Documentation: SUBJECTIVE: patiru had an episode of feeling hot, sweaty and her BP was very high received a dose of iv hydralazine and BP improved and feeling better now still has soreness in her abdomen nausea improved tolerating diet denies chest pain or sob afebrile OBJECTIVE: Vital Signs-as noted below Exam: General-alert and awake. Not in distress currently. ENT-Normal hearing Neck-no neck masses Lungs-cta b/l no wheezing no crackles present Heart-S1 and S2 heard regular rate and rhythm no murmurs . Abdomen-Soft bowel sounds present mild diffuse tender no distension Extremities-no edema no erythema Neuro-alert and awake moves extremities non focal Lab data as noted below. ASSESSMENT & PLAN: This is a 67-year-old female with a past medical history of CKD IV, CAD (s/p CABG x 3 in 2007), HTN, DM II and other medical problems listed below who presents with nausea and vomiting 2 weeks. Today morning had an episode of seizure like activity. Possible Seizures Encephalopathy which is resolved now possibly post ictal initially code purple was called and later stroke alert was called but cancelled as patinet became alert and conversing while getting ct scan Greatly appreciate critical care help Neurology consulted and appreciate inputs Ct head unremarkable ammonia level unremarkable eeg and mri head unremarkable stable currently Acute on chronic CKD IV: prerenal vs ischemic ATN Recent viral infection possibly dehydration Presented with Cr of 3.7 t (from baseline ~2) received fluids cr 2.9 today Holding Lasix Nephro consulted and appreciate inouts f/u labs in am Nausea: Likely from uremia, cystitis Zofran PRN seemed to improved Abdominal pain still has some soreness ct abd/pelvis on presentation unremarkable will consult GI as having persistent abdominal pain UTI: Oliguria, suprapubic pain Abd/pelvis CT with mild circumferential bladder wall thickening could suggest infectious cystitis plan to treat empirically with Rocephin for 5 days Headache: 2/2 dehydration hypertensive urgency Tylenol Hypertensive urgency: amlodipine, metoprolol metoprolol dose increased to 50mg bid amlodipine increased to 10mg daily started on po hydralazine on clonidine patch iv hydralazine prn close monitor CAD (s/p CABG x 3 in 2007): asymptomatic EKG no change DM II: Improved since weight loss hba1c 7.9 holding home meds on iss will monitor Mood disorder: on sertraline DVT Ppx: SQ heparin Code status: FULL per admission. PCP: Neda Mcmanus Dispo:to tele today to be determined Vital Signs: Date Time Temp Pulse Resp B/P (MAP) Pulse Ox O2 Delivery O2 Flow Rate FiO2 07/05/17 08:00 Room Air 07/05/17 07:25 36.4 59 18 170/59 (96) 95 07/05/17 04:10 36.4 50 18 152/67 (95) 92 Room Air 07/05/17 04:00 Room Air 07/05/17 00:00 Room Air 07/04/17 23:21 36.7 53 20 132/55 (80) 94 Room Air 07/04/17 16:00 Room Air 07/04/17 16:00 36.3 49 13 109/52 (71) 96 Room Air 07/04/17 14:03 36.4 55 16 152/62 (92) 96 Room Air 07/04/17 13:53 36.4 55 16 197/92 (127) 96 Room Air 07/04/17 13:42 37.0 55 16 228/80 (129) 96 Room Air 07/04/17 11:30 Room Air 07/04/17 11:30 37.0 55 16 155/74 (101) 96 Room Air 07/04/17 11:15 54 14 152/118 (129) 07/04/17 11:02 46 20 152/118 (129) 83 07/04/17 11:00 56 25 07/04/17 10:02 51 14 155/74 (101) 95 07/04/17 10:00 51 23 96 Lab Results: Results Past 24 Hours Test 07/04/17 11:04 07/04/17 13:51 07/04/17 16:01 07/04/17 20:19 Range/Units Bedside Glucose 197 86 129 217 70-90 mg/dl Test 07/05/17 06:28 07/05/17 07:34 Range/Units White Blood Count 7.72 4.8-10.8 K/uL Red Blood Count 4.44 4.2-5.4 M/uL Hemoglobin 11.9 12.0-16.0 g/dL Hematocrit 36.4 37-47 % Mean Corpuscular Volume 82.0 80-100 fL Mean Corpuscular Hemoglobin 26.8 25-34 pg Mean Corpuscular Hemoglobin Concent 32.7 32-36 g/dl RDW Standard Deviation 47.5 36.4-46.3 fL RDW Coefficient of Variation 15.9 11.5-14.5 % Platelet Count 222 130-400 K/uL Mean Platelet Volume 9.5 7.4-10.4 fL Sodium Level 138 136-145 mmol/L Potassium Level 3.8 3.5-5.1 mmol/L Chloride Level 106 98-107 mmol/L Carbon Dioxide Level 24 21-32 mmol/L Anion Gap 8.0 3-11 mmol/L Blood Urea Nitrogen 42 7-18 mg/dl Creatinine 2.99 0.60-1.20 mg/dl Est Creatinine Clear Calc Drug Dose 16.7 ml/min Estimated GFR () 17.7 Estimated GFR (Non- 15.3 BUN/Creatinine Ratio 14.2 10-20 Random Glucose 146 70-99 mg/dl Calcium Level 8.3 8.5-10.1 mg/dl Bedside Glucose 149 70-90 mg/dl
[2017-07-05] MEDS: SODIUM CHLORIDE 0.45% 1000ML 1,000 ML IV SCH (10:36)
--- NOTE | 2017-07-05 10:38 | Gastrointestinal Consultation ---
Gastrointestinal Consultation Date of Consultation: Jul 05, 2017 Attending Physician: Dr. Trisatn Consulting Physician: Dr. Clemens Reason for Consultation: Abdominal pain History of Present Illness Patient is a 67 year old female with a hx of IBS, DM-2, HTN, ASCVD, S/P CABG, Bipolar, Hypothyroidism, CKD-4. She presented to the ED on 07/02 for nausea/ vomiting. She was admitted for acute on chronic kidney injury. Since the admission, she experienced hypertensive urgency and possible seizure vs. CVA. GI is consulted for abdominal pain. Prior GI w/u for pain and dysphagia has included EGD with empiric dilation for dysphagia (most recently in 2014), ERCP with sphincterotomy and sweeping of the bile duct which was done for elevated LFTs, gallbladder sludge and 7mm CBD (2014 ). She has a hx of colon polyps, but none were found on colonoscopies in 2006, 2015 and 2016. At that time that I arrived in the room, she was on the phone with a girlfriend , speaking happily and was very animated. She graciously ended that phone call to be interviewed. Regarding this illness, she tells me that she had nausea/ vomiting for about 3 weeks prior to arrival (H&P states for 3 days) and that her son was also sick with similar symptoms. She says that she hasn't had any nausea/vomiting in the past 2 days. She spoke at length about family issues, her 's kidney cancer. In 40 minutes spent with the patient, she did not mention abdominal pain. When I asked her about abdominal pain, she told me that her stomach muscles are sore from recent dry heaving. She also recalled some abdominal pain in May. She is able to remember this as she had to cancel a medical appt for her because she was in pain. She doesn't believe that the pain is present every day and denies any current pain (though she was tender on palpation over the area of ecchymosis where she received Lovenox injections). She doesn't seem able to provide any details about this abdominal pain. Past Medical/Surgical History Medical Problems: (1) Acute on chronic renal failure Status: Acute (2) Dehydration Status: Acute (3) Hypertension Status: Acute Social History Problems: (1) Nausea, vomiting and diarrhea Status: Acute Past Medical History: 1. IBS 2. DM-2 3. HTN 4. ASCVD, diastolic CHF 5. Bipolar Disease 6. CKD-4 7. COPD 8. CVA 9. Depression 10. GERD 11. Hypothyroidism 12. Insomnia Past Surgical History: 1. H/O section 2. H/O colonoscopy 3. H/O esophagogastroduodenoscopy 4. S/P CABG x 3 5. S/P hernia repair 6. S/P surgical manipulation of ankle joint 7. S/P JOEL-BSO 8. EUS 10/06/13 for epigastric pain: sludge in the gallbladder, CBD 7mm, fatty liver, normal pancreas. 9. ERCP 08/08/[address] Rosa for choledocholithiasis with sphincterotomy, removal of stones and placement of a CBD stone. 10. ERCP 10/06/13 for stent removal 11. Most recent EGD 04/24/14 Dr. Rosa for dysphagia: esophagus appeared normal ; empirically dilated with tear and bleeding then two hemostatic clips were placed. 12. Most recent colonoscopy 11/21/[address] Alvarez for hx of polyps, normal, but poor prep with recommendation to repeat. Family History FH: cancer FH: diabetes mellitus BROTHER FH: heart disease BROTHER Kidney disease MOTHER Social History Smoking Status: Former Smoker Alcohol Use: none Drug Use: none Marital Status: Housing Status: lives with family, lives with significant other Occupation Status: disabled Allergies Coded Allergies: Tomato (Verified Allergy, Severe, Hives, 11/14/16) Hives BEE STING (Verified Allergy, Mild, MOUTH SWELLING, 11/14/16) Penicillins (Verified Allergy, Unknown, RASH, 11/14/16) Prednisone (Verified Allergy, Unknown, SWELLING OG HANDS, ITCHING, RASH, ) INFO FROM [employer] [facility] Rosuvastatin (Verified Allergy, Unknown, SEVERE H/A, 11/14/16) Statins (Verified Adverse Reaction, Unknown, EFFECTED LIVER STUDIES, ) Current Medications Home Meds and Scripts Medications Dose Route/Sig Max Daily Dose Days Date Category Potassium Gluconate 595 Mg Tab 2 Tabs PO QPM 07/02/17 Reported Remeron (Mirtazapine) 30 Mg Tab 30 Mg PO HS 07/02/17 Reported Sertraline HCl 100 Mg Tab 150 Mg PO DAILY 07/02/17 Reported Ventolin Hfa (Albuterol) 200 Puffs/52063 Mcg Aers 2 Puffs INH Q6 PRN 07/02/17 Reported Januvia (Sitagliptin Phosphate) 50 Mg Tab 50 Mg PO DAILY 07/02/17 Reported Lopressor (Metoprolol Tartrate) 25 Mg Tab 25 Mg PO BID 07/02/17 Reported Furosemide 40 Mg Tab 40 Mg PO DAILY 07/02/17 Reported Amlodipine Besylate 5 Mg Tab 5 Mg PO DAILY 07/02/17 Reported Nitrostat (Nitroglycerin) 0.4 Mg Sub 0.4 Mg UT PRN 11/14/16 Reported Montelukast Sodium 10 Mg Tab 1 Tab PO HS 90 11/14/16 Reported Review of Systems Constitutional: No fever, No chills, No sweats, No weight loss, No weakness Eyes: No eye pain, No redness ENT: No sore throat, No trouble swallowing, No pain on swallowing Respiratory: No cough, No wheezing, No shortness of breath, No dyspnea on exertion Cardiac: No chest pain, No edema, No palpitations Abdomen: + see HPI Neuro: No memory loss, No weakness, No numbness/tingling, No vertigo, No balance problems Psych: No depression symptoms, No anxiety, No insomnia Heme: No abnormal bleeding/bruising, No night sweats Endo: No excessive thirst, No excessive urination Skin: No rash, No itch, No new/changing skin lesions, No jaundice Physical Exam Date Time Temp Pulse Resp B/P (MAP) Pulse Ox O2 Delivery O2 Flow Rate FiO2 07/05/17 08:00 Room Air 07/05/17 07:25 36.4 59 18 170/59 (96) 95 07/05/17 04:10 36.4 50 18 152/67 (95) 92 Room Air 07/05/17 04:00 Room Air 07/05/17 00:00 Room Air 07/04/17 23:21 36.7 53 20 132/55 (80) 94 Room Air 07/04/17 16:00 Room Air 07/04/17 16:00 36.3 49 13 109/52 (71) 96 Room Air 07/04/17 14:03 36.4 55 16 152/62 (92) 96 Room Air 07/04/17 13:53 36.4 55 16 197/92 (127) 96 Room Air 07/04/17 13:42 37.0 55 16 228/80 (129) 96 Room Air 07/04/17 11:30 Room Air 07/04/17 11:30 37.0 55 16 155/74 (101) 96 Room Air 07/04/17 11:15 54 14 152/118 (129) 07/04/17 11:02 46 20 152/118 (129) 83 07/04/17 11:00 56 25 General Appearance: no apparent distress Eyes: normal inspection, EOMI Neck: supple, no adenopathy, thyroid normal Respiratory/Chest: chest non-tender, lungs clear, normal breath sounds, no accessory muscle use Cardiovascular: regular rate, rhythm, no JVD, + systolic murmur (2-3/6 systolic ) Abdomen: normal bowel sounds, soft, no organomegaly, + tenderness (diffuse, moderate bilateral lower abdomen tenderness on palpation) Extremities: normal inspection, no pedal edema, normal capillary refill Neurologic/Psych: alert, normal mood/affect, oriented x 3 Skin: normal color, no jaundice, warm/dry, no rash Laboratory Results Last 24 Hours Test 07/04/17 11:04 07/04/17 13:51 07/04/17 16:01 07/04/17 20:19 Bedside Glucose 197 mg/dl 86 mg/dl 129 mg/dl 217 mg/dl Test 07/05/17 06:28 07/05/17 07:34 White Blood Count 7.72 K/uL Red Blood Count 4.44 M/uL Hemoglobin 11.9 g/dL Hematocrit 36.4 % Mean Corpuscular Volume 82.0 fL Mean Corpuscular Hemoglobin 26.8 pg Mean Corpuscular Hemoglobin Concent 32.7 g/dl RDW Standard Deviation 47.5 fL RDW Coefficient of Variation 15.9 % Platelet Count 222 K/uL Mean Platelet Volume 9.5 fL Sodium Level 138 mmol/L Potassium Level 3.8 mmol/L Chloride Level 106 mmol/L Carbon Dioxide Level 24 mmol/L Anion Gap 8.0 mmol/L Blood Urea Nitrogen 42 mg/dl Creatinine 2.99 mg/dl Est Creatinine Clear Calc Drug Dose 16.7 ml/min Estimated GFR () 17.7 Estimated GFR (Non- 15.3 BUN/Creatinine Ratio 14.2 Random Glucose 146 mg/dl Calcium Level 8.3 mg/dl Bedside Glucose 149 mg/dl Impression Patient is a 67 year old female with report of intermittent abdominal pain, though she is very vague regarding the details of this pain. I suspect that it is related to her extensive abdominal wall hernia repair. Her nausea and vomiting was most likely related to a viral illness which unfortunately persisted until she was well hydrated here in the hospital. Imaging and labs are w/o any LFT, lipase elevation or bowel, pancreas abnormalities (though done w/o contrast for stones, so not the most accurate). Plan 1. Regarding nausea/vomiting, this seems to have resolved. 2. Regarding abdominal pain, if persists then we would be happy to see her as an outpatient. 3. No endoscopy planned at this time. I performed a history and physical examination of the patient, including specifically on physical exam - no abdominal tenderness. I have discussed the patient's management with HERNAN Westfall. Please refer to the nurse practitioner's note for the documented findings and plan of care. Patient feels fine now and denies any nausea or vomiting. Has intermittent abdominal discomfort , ?IBS or related to abdominal wall. At this point, no further GI intervention. If pain recurs we will be happy to see her in the office and obtain further work up. Please recall if needed.
--- NOTE | 2017-07-05 13:22 | Progress Note ---
Internal Med Progress Note Date of Service: Jul 05, 2017. Provider Documentation: SUBJECTIVE: patient seems to be agitated in the morning but currently pleasant says she was upset in the morning but ok now still has some abdominal soreness afebrile denies chest pain or sob no nausea eating ok now OBJECTIVE: Vital Signs-as noted below Exam: General-alert and awake. Not in distress currently. ENT-Normal hearing Neck-no neck masses Lungs-cta b/l no wheezing no crackles present Heart-S1 and S2 heard regular rate and rhythm no murmurs . Abdomen-Soft bowel sounds present mild diffuse tender no distension Extremities-no edema no erythema Neuro-alert and awake moves extremities non focal Lab data as noted below. ASSESSMENT & PLAN: This is a 67-year-old female with a past medical history of CKD IV, CAD (s/p CABG x 3 in 2007), HTN, DM II and other medical problems listed below who presents with nausea and vomiting 2 weeks.07/03/17 morning had an episode of seizure like activity. Possible Seizures Encephalopathy which is resolved now possibly post ictal? initially code purple was called and later stroke alert was called but cancelled as patient became alert and conversing while getting ct scan Greatly appreciate critical care help Neurology consulted and appreciate inputs Ct head unremarkable ammonia level unremarkable eeg and mri head unremarkable stable currently continue to monitor Acute on chronic CKD IV: prerenal vs ischemic ATN Recent viral infection possibly dehydration Presented with Cr of 3.7 t (from baseline ~2) received fluids cr 2.9 today Holding Lasix Nephro consulted and appreciate inputs gentle fluids as per nephro f/u labs in am Nausea: Likely from uremia, cystitis Zofran PRN seemed to improved Abdominal pain still has some soreness ct abd/pelvis on presentation unremarkable consulted GI as having persistent abdominal pain and appreciate inputs UTI: Oliguria, suprapubic pain Abd/pelvis CT with mild circumferential bladder wall thickening could suggest infectious cystitis plan to treat empirically with Rocephin for 5 days#3 Headache: 2/2 dehydration hypertensive urgency Tylenol Hypertensive urgency: amlodipine, metoprolol metoprolol dose increased to 50mg bid amlodipine increased to 10mg daily started on po hydralazine stopped clonidine patch iv hydralazine prn close monitor CAD (s/p CABG x 3 in 2007): asymptomatic EKG no change DM II: Improved since weight loss hba1c 7.9 holding home meds on iss 217/146/149/249 will monitor Mood disorder: on sertraline DVT Ppx: SQ heparin Code status: FULL per admission. PCP: Neda Mcmanus Dispo: monitor in tele to be determined Vital Signs: Date Time Temp Pulse Resp B/P (MAP) Pulse Ox O2 Delivery O2 Flow Rate FiO2 07/05/17 11:41 36.8 59 18 148/64 (92) 95 07/05/17 08:00 Room Air 07/05/17 07:25 36.4 59 18 170/59 (96) 95 07/05/17 04:10 36.4 50 18 152/67 (95) 92 Room Air 07/05/17 04:00 Room Air 07/05/17 00:00 Room Air 07/04/17 23:21 36.7 53 20 132/55 (80) 94 Room Air 07/04/17 16:00 Room Air 07/04/17 16:00 36.3 49 13 109/52 (71) 96 Room Air 07/04/17 14:03 36.4 55 16 152/62 (92) 96 Room Air 07/04/17 13:53 36.4 55 16 197/92 (127) 96 Room Air 07/04/17 13:42 37.0 55 16 228/80 (129) 96 Room Air Lab Results: Results Past 24 Hours Test 07/04/17 13:51 07/04/17 16:01 07/04/17 20:19 07/05/17 06:28 Range/Units Bedside Glucose 86 129 217 70-90 mg/dl White Blood Count 7.72 4.8-10.8 K/uL Red Blood Count 4.44 4.2-5.4 M/uL Hemoglobin 11.9 12.0-16.0 g/dL Hematocrit 36.4 37-47 % Mean Corpuscular Volume 82.0 80-100 fL Mean Corpuscular Hemoglobin 26.8 25-34 pg Mean Corpuscular Hemoglobin Concent 32.7 32-36 g/dl RDW Standard Deviation 47.5 36.4-46.3 fL RDW Coefficient of Variation 15.9 11.5-14.5 % Platelet Count 222 130-400 K/uL Mean Platelet Volume 9.5 7.4-10.4 fL Sodium Level 138 136-145 mmol/L Potassium Level 3.8 3.5-5.1 mmol/L Chloride Level 106 98-107 mmol/L Carbon Dioxide Level 24 21-32 mmol/L Anion Gap 8.0 3-11 mmol/L Blood Urea Nitrogen 42 7-18 mg/dl Creatinine 2.99 0.60-1.20 mg/dl Est Creatinine Clear Calc Drug Dose 16.7 ml/min Estimated GFR () 17.7 Estimated GFR (Non- 15.3 BUN/Creatinine Ratio 14.2 10-20 Random Glucose 146 70-99 mg/dl Calcium Level 8.3 8.5-10.1 mg/dl Test 07/05/17 07:34 07/05/17 11:37 Range/Units Bedside Glucose 149 249 70-90 mg/dl
--- NOTE | 2017-07-05 14:28 | Neurology Progress Notes ---
Neurology Progress Note Date of Service Jul 05, 2017. Houston Le is a 67 year old female with a PMH CKD IV, CAD (s/p CABG x 3 in 2007) , HTN, DM II, diastolic CHF who presented with nausea and vomiting 2 weeks. 3 weeks ago, she had the flu with diarrhea in addition to myalgias and body aches. Completed a Z pack and a course of probiotics. Over the course of the last 2 weeks, patient has been experiencing worsening nausea, vomiting and decreased appetite/fluid intake and unable to keep her medications down. Over the last week, patient has had difficulty making urine and suprapubic pain. Thinks that her blood sugar is low but has not checked it at home. She has a frontal headache currently that feels similar to previous migraines. Was getting dressed to come to the ED today when she lost her balance and fell forward onto her chest. She had a 300 pound weight loss and panniculectomy at [facility] in 2005. was recently diagnosed with cancer and patient admits increased stress and feeling distracted from managing her own health. Follows with Dr. Lucero for nephrology and Dr. Neda Mcmanus for PCP. Is a smoker. This am she got up to go to the bathroom and was found obtunded on the floor. She had no incontinence but was hard to arouse and a stroke alert was called. There is no new one sided weakness or slurred speech. She states the only complaint she had today is the headache. She is trying to sleep but it is hard in the hospital. denies CP, SOB, abdominal pain, one sided weakness, numbness tingling, N, V, vision changes. +headache Objective Date Time Temp Pulse Resp B/P (MAP) Pulse Ox O2 Delivery O2 Flow Rate FiO2 07/05/17 12:00 Room Air 07/05/17 11:41 36.8 59 18 148/64 (92) 95 07/05/17 08:00 Room Air 07/05/17 07:25 36.4 59 18 170/59 (96) 95 07/05/17 04:10 36.4 50 18 152/67 (95) 92 Room Air 07/05/17 04:00 Room Air 07/05/17 00:00 Room Air 07/04/17 23:21 36.7 53 20 132/55 (80) 94 Room Air 07/04/17 16:00 Room Air 07/04/17 16:00 36.3 49 13 109/52 (71) 96 Room Air Last 24 Hours Test 07/04/17 16:01 07/04/17 20:19 07/05/17 06:28 07/05/17 07:34 Bedside Glucose 129 mg/dl 217 mg/dl 149 mg/dl White Blood Count 7.72 K/uL Red Blood Count 4.44 M/uL Hemoglobin 11.9 g/dL Hematocrit 36.4 % Mean Corpuscular Volume 82.0 fL Mean Corpuscular Hemoglobin 26.8 pg Mean Corpuscular Hemoglobin Concent 32.7 g/dl RDW Standard Deviation 47.5 fL RDW Coefficient of Variation 15.9 % Platelet Count 222 K/uL Mean Platelet Volume 9.5 fL Sodium Level 138 mmol/L Potassium Level 3.8 mmol/L Chloride Level 106 mmol/L Carbon Dioxide Level 24 mmol/L Anion Gap 8.0 mmol/L Blood Urea Nitrogen 42 mg/dl Creatinine 2.99 mg/dl Est Creatinine Clear Calc Drug Dose 16.7 ml/min Estimated GFR () 17.7 Estimated GFR (Non- 15.3 BUN/Creatinine Ratio 14.2 Random Glucose 146 mg/dl Calcium Level 8.3 mg/dl Test 07/05/17 11:37 Bedside Glucose 249 mg/dl Imaging: no new imaging Exam: Gen: alert oriented to self, [facility], [place], 2018, where she lives, president lungs Course breath sounds CV RRR MS biceps triceps hand clinical care manager 5/5 bilaterally, hip flex plantar flex ext 5/5 bilaterally facial symmetry eye brow raise symmetric Current Inpatient Medications Medications (Trade) Dose Ordered Sig/Millie Route Start Time Stop Time Status Last Admin Dose Admin Acetaminophen (Tylenol Tab) 650 mg Q4H PRN PO 07/02/17 19:45 08/01/17 19:44 07/05/17 14:07 650 MG Heparin Sodium (Porcine) (Heparin Sq 5000 Unit/0.5ml) 5,000 unit Q8 SQ 07/03/17 07:00 08/02/17 06:59 07/05/17 14:10 5,000 UNIT Ondansetron HCl (Zofran Inj) 4 mg Q6H PRN IV 07/02/17 19:45 08/01/17 19:44 07/04/17 13:46 4 MG Albuterol (Ventolin Hfa Inhaler) 2 puffs Q6 PRN INH 07/02/17 20:15 08/01/17 20:14 Mirtazapine (Remeron Tab) 30 mg HS PO 07/02/17 21:00 08/01/17 20:59 07/03/17 21:25 30 MG Montelukast Sodium (Singulair Tab) 10 mg HS PO 07/02/17 21:00 08/01/17 20:59 07/03/17 21:24 10 MG Nitroglycerin (Nitrostat Tab) 0.4 mg PRN UT 07/02/17 20:15 08/01/17 20:14 Sertraline HCl (Zoloft Tab) 150 mg DAILY PO 07/03/17 09:00 08/02/17 08:59 07/05/17 07:35 150 MG Hydralazine HCl (HydrALAZINE INJ) 10 mg Q8 PRN IV. 07/02/17 20:30 08/01/17 20:29 07/04/17 13:43 10 MG Insulin Aspart (novoLOG ASPART) SLIDING SCALE If C... ACHS SC 07/02/17 21:00 08/01/17 20:59 07/05/17 12:33 7 UNITS Glucose (Glucose 40% Gel) 15-30 GRAMS 15 GRAMS... UD PRN PO 07/02/17 20:30 08/01/17 20:29 Glucose (Glucose Chew Tab) 4-8 Tablets 4 Tabl... UD PRN PO 07/02/17 20:30 08/01/17 20:29 Dextrose (Dextrose 50% 50ML Syringe) 25-50ML OF 50% DW IV FOR... UD PRN IV 07/02/17 20:30 08/01/17 20:29 Glucagon (Glucagon Inj) 1 mg UD PRN SQ 07/02/17 20:30 08/01/17 20:29 Zolpidem Tartrate (Ambien Tab) 5 mg HS PRN PO 07/02/17 22:45 08/01/17 22:44 Future Hold 07/03/17 00:32 5 MG Metoprolol Tartrate (Lopressor Tab) 50 mg BID PO 3/27/18 21:00 08/02/17 20:59 07/05/17 07:34 50 MG Morphine Sulfate (MoRPHine SULFATE INJ) 2 mg Q2H PRN IV 07/03/17 10:00 07/17/17 09:59 07/03/17 23:09 2 MG Magnesium Oxide (Mag-Ox Tab) 400 mg HS PO 07/03/17 21:00 08/02/17 20:59 07/03/17 21:24 400 MG Hydralazine HCl (Apresoline Tab) 10 mg QID PO 07/03/17 21:00 08/02/17 20:59 07/05/17 12:28 10 MG Amlodipine Besylate (Norvasc Tab) 10 mg DAILY PO 07/05/17 09:00 08/04/17 08:59 07/05/17 07:34 10 MG Cefdinir (Omnicef Cap) 300 mg DAILY@2100 PO 07/04/17 21:00 07/06/17 21:01 Sodium Chloride 1,000 ml @ 50 mls/hr Q20H IV 07/05/17 10:30 08/04/17 10:29 07/05/17 10:36 50 MLS/HR Impression 67 year old female with CKD s/p flu symptoms and dehydration with unresponsive episode- back to baseline Plan 1. EEG - for possible new onset seizure- no clear evidence of seizure activity 2. MRI brain with and without for seizure focus or area of stroke- no acute findings 3. optimize DM,HTN, DL LDL <70 4. not clear what the event was likely vasovagal event 5. on going issues with HTN, CKD improving 6. headache will add Mg++ 400 mg daily 7. no triptans for headache due to HTN and stroke risk 8. tylenol for headache 9. correct metabolic issues 10. neurology 2-3 weeks after discharge from hospital Dr Alisha Keys or Alisha Guajardo PAC will sign off for now will be available for any questions concerns. 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
[2017-07-05] MEDS ORDERED: POLYETHYLENE (MIRALAX) 17 GM PACK PO ONE (17:00)
[2017-07-05] MEDS ORDERED: ASPEC81 PO (17:10)
[2017-07-05] MEDS ORDERED: LISI40TA PO (17:10)
[2017-07-05] MEDS ORDERED: CYCL5TAB PO (17:10)
[2017-07-05] MEDS ORDERED: FLUT1INH INH (17:10)
[2017-07-05] MEDS ORDERED: LEVO25TA5 PO (17:10)
[2017-07-05] MEDS ORDERED: SUVO1TAB2 PO (17:10)
[2017-07-05] MEDS ORDERED: FLUT0.15 NAE (17:10)
[2017-07-05] MEDS ORDERED: CLOP1TAB5 PO (17:10)
[2017-07-05] MEDS ORDERED: CLON0.5T3 PO (17:12)
--- NOTE | 2017-07-05 17:27 | Nephrology Progress Note ---
Nephrology Progress Note Date of Service: Jul 05, 2017. Subjective some screaming at nurses about privacy issues this am; denies voiding sx, sob, n /v (sic), blurred vision, confusion; does not c/o abd pain to me but did earlier to other providers Objective Date Time Temp Pulse Resp B/P (MAP) Pulse Ox O2 Delivery O2 Flow Rate FiO2 07/05/17 08:00 Room Air 07/05/17 07:25 36.4 59 18 170/59 (96) 95 07/05/17 04:10 36.4 50 18 152/67 (95) 92 Room Air 07/05/17 04:00 Room Air 07/05/17 00:00 Room Air 07/04/17 23:21 36.7 53 20 132/55 (80) 94 Room Air 07/04/17 16:00 Room Air 07/04/17 16:00 36.3 49 13 109/52 (71) 96 Room Air 07/04/17 14:03 36.4 55 16 152/62 (92) 96 Room Air 07/04/17 13:53 36.4 55 16 197/92 (127) 96 Room Air 07/04/17 13:42 37.0 55 16 228/80 (129) 96 Room Air 07/04/17 11:30 Room Air 07/04/17 11:30 37.0 55 16 155/74 (101) 96 Room Air 07/04/17 11:15 54 14 152/118 (129) 07/04/17 11:02 46 20 152/118 (129) 83 07/04/17 11:00 56 25 07/04/17 10:02 51 14 155/74 (101) 95 07/04/17 10:00 51 23 96 07/04/17 09:30 37.0 52 16 153/54 (87) 95 Room Air 07/04/17 09:18 50 15 153/54 (87) 95 07/04/17 09:00 55 18 92 Physical Exam: General Appearance: + mild distress (anxious/ flight of ideas, on RA), oriented x 3, ambulatory Eyes: EOMI (less perirobital edema) ENT: hearing grossly normal Neck: supple Respiratory/Chest: no respiratory distress, + decreased breath sounds Cardiovascular: regular rate, rhythm (in 50s), no edema Abdomen: normal bowel sounds, soft, + pertinent finding (diffuse nonreproducible TTP/ no guarding no rebound; no cutler) Extremities: no pedal edema Neurologic/Psych: alert (de paz, fluent speech; anxious/pressured speech), oriented x 3 Skin: no jaundice, warm/dry, no rash Current Inpatient Medications Medications (Trade) Dose Ordered Sig/Millie Route Start Time Stop Time Status Last Admin Dose Admin Acetaminophen (Tylenol Tab) 650 mg Q4H PRN PO 07/02/17 19:45 08/01/17 19:44 07/05/17 07:33 650 MG Heparin Sodium (Porcine) (Heparin Sq 5000 Unit/0.5ml) 5,000 unit Q8 SQ 07/03/17 07:00 08/02/17 06:59 07/04/17 14:02 5,000 UNIT Ondansetron HCl (Zofran Inj) 4 mg Q6H PRN IV 07/02/17 19:45 08/01/17 19:44 07/04/17 13:46 4 MG Albuterol (Ventolin Hfa Inhaler) 2 puffs Q6 PRN INH 07/02/17 20:15 08/01/17 20:14 Mirtazapine (Remeron Tab) 30 mg HS PO 07/02/17 21:00 08/01/17 20:59 07/03/17 21:25 30 MG Montelukast Sodium (Singulair Tab) 10 mg HS PO 07/02/17 21:00 08/01/17 20:59 07/03/17 21:24 10 MG Nitroglycerin (Nitrostat Tab) 0.4 mg PRN UT 07/02/17 20:15 08/01/17 20:14 Sertraline HCl (Zoloft Tab) 150 mg DAILY PO 07/03/17 09:00 08/02/17 08:59 07/05/17 07:35 150 MG Hydralazine HCl (HydrALAZINE INJ) 10 mg Q8 PRN IV. 07/02/17 20:30 08/01/17 20:29 07/04/17 13:43 10 MG Insulin Aspart (novoLOG ASPART) SLIDING SCALE If C... ACHS SC 07/02/17 21:00 08/01/17 20:59 07/05/17 08:02 4 UNITS Glucose (Glucose 40% Gel) 15-30 GRAMS 15 GRAMS... UD PRN PO 07/02/17 20:30 08/01/17 20:29 Glucose (Glucose Chew Tab) 4-8 Tablets 4 Tabl... UD PRN PO 07/02/17 20:30 08/01/17 20:29 Dextrose (Dextrose 50% 50ML Syringe) 25-50ML OF 50% DW IV FOR... UD PRN IV 07/02/17 20:30 08/01/17 20:29 Glucagon (Glucagon Inj) 1 mg UD PRN SQ 07/02/17 20:30 08/01/17 20:29 Zolpidem Tartrate (Ambien Tab) 5 mg HS PRN PO 07/02/17 22:45 08/01/17 22:44 Future Hold 07/03/17 00:32 5 MG Metoprolol Tartrate (Lopressor Tab) 50 mg BID PO 07/03/17 21:00 08/02/17 20:59 07/05/17 07:34 50 MG Morphine Sulfate (MoRPHine SULFATE INJ) 2 mg Q2H PRN IV 07/03/17 10:00 07/17/17 09:59 07/03/17 23:09 2 MG Magnesium Oxide (Mag-Ox Tab) 400 mg HS PO 07/03/17 21:00 08/02/17 20:59 07/03/17 21:24 400 MG Hydralazine HCl (Apresoline Tab) 10 mg QID PO 07/03/17 21:00 08/02/17 20:59 07/05/17 07:36 10 MG Amlodipine Besylate (Norvasc Tab) 10 mg DAILY PO 07/05/17 09:00 08/04/17 08:59 07/05/17 07:34 10 MG Cefdinir (Omnicef Cap) 300 mg DAILY@2100 PO 07/04/17 21:00 07/06/17 21:01 Last 24 Hours Test 07/04/17 11:04 07/04/17 13:51 07/04/17 16:01 07/04/17 20:19 Bedside Glucose 197 mg/dl 86 mg/dl 129 mg/dl 217 mg/dl Test 07/05/17 06:28 07/05/17 07:34 White Blood Count 7.72 K/uL Red Blood Count 4.44 M/uL Hemoglobin 11.9 g/dL Hematocrit 36.4 % Mean Corpuscular Volume 82.0 fL Mean Corpuscular Hemoglobin 26.8 pg Mean Corpuscular Hemoglobin Concent 32.7 g/dl RDW Standard Deviation 47.5 fL RDW Coefficient of Variation 15.9 % Platelet Count 222 K/uL Mean Platelet Volume 9.5 fL Sodium Level 138 mmol/L Potassium Level 3.8 mmol/L Chloride Level 106 mmol/L Carbon Dioxide Level 24 mmol/L Anion Gap 8.0 mmol/L Blood Urea Nitrogen 42 mg/dl Creatinine 2.99 mg/dl Est Creatinine Clear Calc Drug Dose 16.7 ml/min Estimated GFR () 17.7 Estimated GFR (Non- 15.3 BUN/Creatinine Ratio 14.2 Random Glucose 146 mg/dl Calcium Level 8.3 mg/dl Bedside Glucose 149 mg/dl Assessment & Plan 67 y/o F who fell at home just before coming to the ER for evaluation of several weeks of malaise and N and found to have creatinine up from baseline of about 2 to 3.7 on presentation 07/02; moved to ICU this AM w/ HTN emergency and concern for possible seizure. HTN urgency w/ stroke alert called 07/03 am pt w/ anxiety; no consistent seizure behavior, no consistent neuro deficits; did have CARL, ? confusion; improved but not goal control -goal sbp is 140-150s next 24 hrs consistently unless neurology has alternate parameters w/ HR >60 -cont current meds; agree w/ stopping clonidine d/t dry mouth -abd pain not c/w mesenteric ischemia; ? cause or chronicity HEBERT on CKD4 w/ nephrotic range proteinuria > at least in part prerenal; but ischemic ATN on differential as well given extremes of BP -no indication for emergent dialysis; cannot rule out need this admission -daily bmp -appears at least in part to be prerenal >> gentle trial of 1/2 ns today at 50 mL hourly < should not increase bp -monitor mag on this therapy for CARL w/ RF >> acceptable yesterday; cont to monitor -cont to hold lasix confusion/ anxiety -no clear cause; ? baseline MS for this pt -? EtOH though no hx of that reported appreciate consult; will follow with you. Care coordinated with Dr. Tristan
[2017-07-05] MEDS: CLONAZEPAM 0.5 MG TAB PO SCH (21:12)
[2017-07-05] MEDS: MONTELUKAST SOD 10 MG TAB PO SCH (21:13)
[2017-07-05] MEDS: MAGNESIUM OXIDE 400 MG TAB PO SCH (21:15)
[2017-07-05] MEDS: MIRTAZAPINE TAB 15 MG TAB PO SCH (21:15)
[2017-07-05] MEDS: CEFDINIR 300 MG CAP PO SCH (21:34)
[2017-07-05] MEDS: SUVOREXANT 10 MG PO SCH (21:35)
[2017-07-05] MEDS: BREO ELLIPTA: ORDER AWAITING ACTION SCH (22:53)
[2017-07-06] VITALS (8 sets, daily range): BP systolic 149–204; BP diastolic 60–103; PULSE 54–64; TEMP 36.5–36.9; O2SAT 94–97
[2017-07-06] MEDS: HEPARIN SOD 5000 UNIT/0.5 ML CARP SQ SCH ×3 (06:00→21:51)
[2017-07-06] MEDS: LEVOTHYROXINE 25 MCG TAB PO SCH (06:09)
[2017-07-06] MEDS: SODIUM CHLORIDE 0.45% 1000ML 1,000 ML IV SCH (06:09)
[2017-07-06 06:26] LABS: CALCIUM 8.2 mg/dl (8.5-10.1); CREATININE 2.75 mg/dl (0.60-1.20); POTASSIUM 4.2 mmol/L (3.5-5.1)
[2017-07-06] MEDS: HydrALAZINE HCL 20 MG/ML VIAL IV. PRN (07:16)
[2017-07-06] MEDS: SERTRALINE HCL 100 MG TAB PO SCH (08:28)
[2017-07-06] MEDS: CLOPIDOGREL BISULFATE 75 MG TAB PO SCH (08:28)
[2017-07-06] MEDS: HydrALAZINE 10 MG TAB PO SCH (08:29)
[2017-07-06] MEDS: ASPIRIN 81 MG ECTAB PO SCH (08:29)
[2017-07-06] MEDS: FLUTICASONE PROPIONATE NA SPR 16 GM BTL NAE SCH (08:30)
[2017-07-06] MEDS: METOPROLOL TARTRATE 50 MG TAB PO SCH ×2 (08:30→21:48)
[2017-07-06] MEDS: INSULIN ASPART 100 UNITS/ML 3 ML PEN SC SCH ×4 (08:38→21:00)
[2017-07-06] MEDS: BREO ELLIPTA: ORDER AWAITING ACTION SCH ×3 (08:38→23:26)
[2017-07-06] MEDS: AMLODIPINE BESYLATE 5 MG TAB PO SCH (08:40)
[2017-07-06] MEDS: ACETAMINOPHEN 325 MG TAB PO PRN (08:50)
[2017-07-06] MEDS: CYCLOBENZAPRINE HCL 10 MG TAB PO PRN ×2 (12:44→23:26)
--- NOTE | 2017-07-06 13:56 | NEPHROLOGY PROGRESS NOTE ---
DATE: 07/06/2017 SUBJECTIVE: Overnight, no new issues. She appears to be fairly comfortable. PHYSICAL EXAMINATION: VITAL SIGNS: Blood pressure is running very high, most recent blood pressure is still 204/88, 97% on room air. She is eating and drinking normally now. She is making urine. Yesterday's urine output was not started, but the day before she had 1150 mL of urine. HEENT: Mucous membrane is moist. NECK: Supple. No jugular venous distention. CHEST: Bilateral clear to auscultation. Occasional wheezing. CARDIOVASCULAR: Regular rate and rhythm, no edema. ABDOMEN: Soft, nontender. EXTREMITIES: Shows no edema. NEUROLOGIC: Awake, alert, oriented x3. Mucous membrane moist. NECK: Supple. SKIN: No jaundice. LABORATORY DATA: Hemoglobin 11.9, platelet count 222 and WBC count 7.7. Sodium 139, potassium 4.2, BUN 41; creatinine 2.75, creatinine has been trending down for the last few days from a peak of 3.70 four days ago and is down to 2.75 now. ASSESSMENT AND PLAN: A 67-year-old female who fell at home just before coming to the Emergency Department for evaluation of several weeks of malaise and nausea and found to have a creatinine up from baseline of about 2 to 3.7, on presentation. 1. Acute renal failure. This is on background chronic kidney disease IV with nephrotic range proteinuria. Part of that might be prerenal, but it is quite possible that she could have a higher baseline creatinine from now on. At this time, I do not see the need of continuing with IV fluid. She has a blood pressure of more than 200 and she has been getting IV fluid for the last 4 days and she is eating and drinking normally. Will stop the IV fluid, but for now will continue to hold Lasix but even that I do not think we need to hold for many days. 2. Hypertension. Blood pressure is still very high. At this time, I would increase the hydralazine to 50 mg 3 times a day, amlodipine has already been increased to 10, metoprolol has been increased to 50 twice daily. I would not use JALEEL and ARB at this time given still recovering acute renal failure. There is room to go up on the hydralazine, if needed. Metoprolol can be increased further, but if you continue to have problem with hypertension, I would also consider changing it over to carvedilol for more blood pressure lowering effect. Stop the IV fluid that may help with some blood pressure control. MTDD
--- NOTE | 2017-07-06 17:33 | Progress Note ---
Internal Med Progress Note Date of Service: Jul 06, 2017. Provider Documentation: SUBJECTIVE: slept very well last night denies any chest pain or sob afebrile no nausea eating fine moved bowels last night feeling better OBJECTIVE: Vital Signs-as noted below Exam: General-alert and awake. Not in distress currently. ENT-Normal hearing Neck-no neck masses Lungs-cta b/l no wheezing no crackles present Heart-S1 and S2 heard regular rate and rhythm no murmurs . Abdomen-Soft bowel sounds present mild diffuse tender no distension Extremities-no edema no erythema Neuro-alert and awake moves extremities non focal Lab data as noted below. ASSESSMENT & PLAN: This is a 67-year-old female with a past medical history of CKD IV, CAD (s/p CABG x 3 in 2007), HTN, DM II and other medical problems listed below who presents with nausea and vomiting 2 weeks.07/03/17 morning had an episode of seizure like activity. Possible Seizures Encephalopathy which is resolved now possibly post ictal? initially code purple was called and later stroke alert was called but cancelled as patient became alert and conversing while getting ct scan Greatly appreciate critical care help Neurology consulted and appreciate inputs Ct head unremarkable ammonia level unremarkable eeg and mri head unremarkable continue to monitor stable Acute on chronic CKD IV: prerenal vs ischemic ATN Recent viral infection possibly dehydration Presented with Cr of 3.7 t (from baseline ~2) received fluids cr 2.7 today Holding Lasix Nephro consulted and appreciate inputs stopping fluids f/u labs in am Nausea: Likely from uremia, cystitis Zofran PRN seemed to improved Abdominal pain still has some soreness ct abd/pelvis on presentation unremarkable consulted GI as having persistent abdominal pain and appreciate inputs stable UTI: Oliguria, suprapubic pain Abd/pelvis CT with mild circumferential bladder wall thickening could suggest infectious cystitis received Rocephin currently on Omnicef- will stop after tomorrows dose Headache: 2/2 dehydration hypertensive urgency Tylenol Hypertensive urgency: amlodipine, metoprolol , lisinopril and lasix lisinopril and lasix on hold for HEBERT metoprolol dose increased to 50mg bid amlodipine increased to 10mg daily started on po hydralazine and increased to 50mg tid today and plan for coreq in place of metoprolol if BP still high as per nephro recommendations iv hydralazine prn close monitor CAD (s/p CABG x 3 in 2007): asymptomatic EKG no change DM II: Improved since weight loss hba1c 7.9 holding home meds on iss 203/199/119/181 will monitor Mood disorder: on sertraline DVT Ppx: SQ heparin Code status: FULL per admission. PCP: Neda Mcmanus Dispo: monitor in tele to be determined Vital Signs: Date Time Temp Pulse Resp B/P (MAP) Pulse Ox O2 Delivery O2 Flow Rate FiO2 07/06/17 16:00 Room Air 07/06/17 14:30 36.5 55 17 176/76 (109) 96 Room Air 07/06/17 11:43 36.9 54 17 200/77 (118) 97 Room Air 204/88 (126) 07/06/17 08:37 64 183/60 (101) 07/06/17 08:00 94 Room Air 07/06/17 07:15 63 190/70 (110) 07/06/17 07:10 36.8 58 17 192/103 (132) 94 Room Air 07/06/17 04:00 Room Air 07/06/17 03:54 36.6 63 16 149/77 (101) 94 Room Air 07/05/17 23:59 Room Air 07/05/17 23:33 36.5 101 18 112/76 (88) 95 Nasal Cannula 1.0 07/05/17 21:36 65 180/78 (112) 07/05/17 19:38 36.8 60 20 190/107 (134) 97 Room Air 07/05/17 18:32 55 188/80 (116) 07/05/17 17:57 Room Air Lab Results: Results Past 24 Hours Test 07/05/17 20:18 07/05/17 20:33 07/05/17 21:04 07/06/17 05:32 Range/Units Bedside Glucose 66 75 97 70-90 mg/dl Sodium Level 139 136-145 mmol/L Potassium Level 4.2 3.5-5.1 mmol/L Chloride Level 109 98-107 mmol/L Carbon Dioxide Level 24 21-32 mmol/L Anion Gap 6.0 3-11 mmol/L Blood Urea Nitrogen 41 7-18 mg/dl Creatinine 2.75 0.60-1.20 mg/dl Est Creatinine Clear Calc Drug Dose 18.1 ml/min Estimated GFR () 19.6 Estimated GFR (Non- 16.9 BUN/Creatinine Ratio 14.9 10-20 Random Glucose 203 70-99 mg/dl Calcium Level 8.2 8.5-10.1 mg/dl Test 07/06/17 07:41 07/06/17 11:33 07/06/17 16:31 Range/Units Bedside Glucose 199 119 181 70-90 mg/dl
[2017-07-06] MEDS: CEFDINIR 300 MG CAP PO SCH (21:47)
[2017-07-06] MEDS: MIRTAZAPINE TAB 15 MG TAB PO SCH (21:48)
[2017-07-06] MEDS: MONTELUKAST SOD 10 MG TAB PO SCH (21:49)
[2017-07-06] MEDS: SUVOREXANT 10 MG PO SCH (21:49)
[2017-07-06] MEDS: MAGNESIUM OXIDE 400 MG TAB PO SCH (21:49)
[2017-07-06] MEDS: CLONAZEPAM 0.5 MG TAB PO SCH (21:55)
[2017-07-06 23:51] LABS: CALCIUM 7.9 mg/dl (8.5-10.1); CREATININE 2.67 mg/dl (0.60-1.20); POTASSIUM 4.1 mmol/L (3.5-5.1)
[2017-07-07] VITALS (18 sets, daily range): BP systolic 122–208; BP diastolic 54–89; PULSE 54–91; TEMP 36.3–36.9; O2SAT 93–97
[2017-07-07] MEDS: HydrALAZINE HCL 20 MG/ML VIAL IV. PRN ×3 (00:44→15:26)
[2017-07-07] MEDS: ACETAMINOPHEN 325 MG TAB PO PRN (00:52)
[2017-07-07] MEDS: LEVOTHYROXINE 25 MCG TAB PO SCH (06:02)
[2017-07-07] MEDS: HEPARIN SOD 5000 UNIT/0.5 ML CARP SQ SCH ×3 (06:06→20:52)
[2017-07-07] MEDS: BREO ELLIPTA: ORDER AWAITING ACTION SCH ×2 (07:21→17:03)
[2017-07-07] MEDS: FLUTICASONE PROPIONATE NA SPR 16 GM BTL NAE SCH (08:19)
[2017-07-07] MEDS: ASPIRIN 81 MG ECTAB PO SCH (08:19)
[2017-07-07] MEDS: METOPROLOL TARTRATE 50 MG TAB PO SCH (08:21)
[2017-07-07] MEDS: SERTRALINE HCL 100 MG TAB PO SCH (08:22)
[2017-07-07] MEDS: AMLODIPINE BESYLATE 5 MG TAB PO SCH (08:22)
[2017-07-07] MEDS: INSULIN ASPART 100 UNITS/ML 3 ML PEN SC SCH ×4 (08:25→20:51)
[2017-07-07] MEDS: CLOPIDOGREL BISULFATE 75 MG TAB PO SCH (10:55)
[2017-07-07] MEDS ORDERED: HydrALAZINE HCL 20 MG/ML VIAL IV. ONE (11:30)
[2017-07-07] MEDS ORDERED: NURSING VERBAL MED ORDER ONE (11:30)
[2017-07-07] MEDS: NITROGLYCERIN 2% OINTMENT 30GM TUBE EXT SCH ×2 (17:00→23:26)
--- NOTE | 2017-07-07 17:54 | DIAGNOSTIC IMAGING REPORT ---
CT SCAN OF THE BRAIN WITHOUT IV CONTRAST CLINICAL HISTORY: Right hand numbness. COMPARISON STUDY: CT of the brain dated 07/03/2017. TECHNIQUE: Unenhanced axial CT scan of the brain is performed from the vertex to the skull base. A dose lowering technique was utilized adhering to the principles of ALARA. CT DOSE: 537.48 mGy.cm FINDINGS: Brain parenchyma: There are age-related involutional changes noting mild to moderate patchy subcortical and periventricular microangiopathic change. There is no hemorrhage, mass effect, or evidence of acute territorial ischemia by CT criteria. Pal-white matter is preserved. No extra-axial fluid collection is seen. Ventricles, sulci, cisterns: Prominent secondary to involutional change. Intracranial vasculature: There is atherosclerotic calcification of the cavernous carotid arteries. Calvarium: Unremarkable. Sinuses and mastoids: The visualized paranasal sinuses are clear. The mastoid air cells are well pneumatized. Orbits: The bony orbits are grossly intact. There are bilateral ocular lens implants. IMPRESSION: There is no hemorrhage, mass effect, or evidence of acute territorial ischemia by CT criteria. Electronically signed by: Ricki Raza M.D. 07/07/2017 5:53 PM Dictated Date/Time: 07/07/2017 5:51 PM
--- NOTE | 2017-07-07 18:40 | Progress Note ---
Internal Med Progress Note Date of Service: Jul 07, 2017. Provider Documentation: SUBJECTIVE: says hands feel numb and she says they feel numb when they are swollen and not on Lasix currently denies any chest pain or sob had couple of episodes of diarrhea eating ok talking fine having some headache OBJECTIVE: Vital Signs-as noted below Exam: General-alert and awake. Not in distress currently. ENT-Normal hearing Neck-no neck masses Lungs-cta b/l no wheezing no crackles present Heart-S1 and S2 heard regular rate and rhythm no murmurs . Abdomen-Soft bowel sounds present mild diffuse tender no distension Extremities-no edema no erythema Neuro-alert and awake moves extremities mild numbness in hands non focal Lab data as noted below. ASSESSMENT & PLAN: This is a 67-year-old female with a past medical history of CKD IV, CAD (s/p CABG x 3 in 2007), HTN, DM II and other medical problems listed below who presents with nausea and vomiting 2 weeks.07/03/17 morning had an episode of seizure like activity. Possible Seizures Encephalopathy which is resolved now possibly post ictal? initially code purple was called and later stroke alert was called but cancelled as patient became alert and conversing while getting ct scan Greatly appreciate critical care help Neurology consulted and appreciate inputs Ct head unremarkable ammonia level unremarkable eeg and mri head unremarkable had another ct head as complained of hand numbness( mostly from elevated BP/ edema and it was negative study stable Acute on chronic CKD IV: prerenal vs ischemic ATN Recent viral infection possibly dehydration Presented with Cr of 3.7 t (from baseline ~2) received fluids cr 2.6 yesterday Holding Lasix Nephro consulted and appreciate inputs f/u labs Nausea: Likely from uremia, cystitis Zofran PRN seemed to improved Abdominal pain still has some soreness ct abd/pelvis on presentation unremarkable consulted GI as having persistent abdominal pain and appreciate inputs stable urrently UTI: Oliguria, suprapubic pain Abd/pelvis CT with mild circumferential bladder wall thickening could suggest infectious cystitis received Rocephin currently on Omnicef- will stop after tomorrows dose Headache: 2/2 dehydration hypertensive urgency Tylenol prn Hypertensive urgency: amlodipine, metoprolol , lisinopril and lasix lisinopril and lasix on hold for HEBERT metoprolol dose increased to 50mg bid amlodipine increased to 10mg daily started on po hydralazine and increased to 50mg tid t and plan for coreq in place of metoprolol if BP still high as per nephro recommendations changed metoprolol to Coreg today added nitro past as BP still high iv hydralazine prn close monitor CAD (s/p CABG x 3 in 2007): asymptomatic EKG no change DM II: Improved since weight loss hba1c 7.9 holding home meds on iss 166/143/99/172 will monitor Mood disorder: on sertraline DVT Ppx: SQ heparin Code status: FULL per admission. PCP: Neda Mcmanus Dispo: monitor in tele to be determined Vital Signs: Date Time Temp Pulse Resp B/P (MAP) Pulse Ox O2 Delivery O2 Flow Rate FiO2 07/07/17 17:30 72 180/70 (106) 07/07/17 17:00 36.8 66 18 196/89 (124) 96 Room Air 07/07/17 16:55 88 200/70 (113) 07/07/17 16:00 Room Air 07/07/17 15:25 36.7 59 20 208/83 (124) 93 07/07/17 13:45 54 154/54 (87) 07/07/17 12:00 Room Air 07/07/17 11:29 36.9 57 16 185/80 (115) 97 Room Air 07/07/17 08:20 67 189/78 (115) 07/07/17 08:00 Room Air 07/07/17 07:03 36.5 55 18 189/79 (115) 95 Room Air 07/07/17 04:44 36.6 58 18 160/71 (100) 96 Room Air 07/07/17 04:00 Room Air 07/07/17 02:10 63 152/76 (101) 07/07/17 00:27 36.8 58 18 192/76 (114) 97 Room Air 07/07/17 00:00 Room Air 07/06/17 20:17 36.7 62 20 185/69 (107) 95 Room Air 07/06/17 20:00 Room Air Lab Results: Results Past 24 Hours Test 07/06/17 20:37 07/06/17 23:04 07/07/17 07:04 07/07/17 11:36 Range/Units Bedside Glucose 141 143 99 70-90 mg/dl Sodium Level 140 136-145 mmol/L Potassium Level 4.1 3.5-5.1 mmol/L Chloride Level 110 98-107 mmol/L Carbon Dioxide Level 27 21-32 mmol/L Anion Gap 3.0 3-11 mmol/L Blood Urea Nitrogen 43 7-18 mg/dl Creatinine 2.67 0.60-1.20 mg/dl Est Creatinine Clear Calc Drug Dose 18.7 ml/min Estimated GFR () 20.3 Estimated GFR (Non- 17.5 BUN/Creatinine Ratio 16.0 10-20 Random Glucose 166 70-99 mg/dl Calcium Level 7.9 8.5-10.1 mg/dl Magnesium Level 2.0 1.8-2.4 mg/dl Test 07/07/17 16:17 07/07/17 17:38 Range/Units Bedside Glucose 172 70-90 mg/dl
[2017-07-07] MEDS ORDERED: ACETAMINOPHEN 500 MG TAB PO ONE (18:45)
[2017-07-07 19:03] LABS: CALCIUM 8.1 mg/dl (8.5-10.1); CREATININE 2.83 mg/dl (0.60-1.20); POTASSIUM 4.3 mmol/L (3.5-5.1)
[2017-07-07] MEDS: CLONAZEPAM 0.5 MG TAB PO SCH (20:47)
[2017-07-07] MEDS: MONTELUKAST SOD 10 MG TAB PO SCH (20:47)
[2017-07-07] MEDS: MAGNESIUM OXIDE 400 MG TAB PO SCH (20:47)
[2017-07-07] MEDS: SUVOREXANT 10 MG PO SCH (20:47)
[2017-07-07] MEDS: CARVEDILOL 6.25 MG TAB PO SCH (20:47)
[2017-07-07] MEDS: MIRTAZAPINE TAB 15 MG TAB PO SCH (20:48)
[2017-07-07] MEDS: CYCLOBENZAPRINE HCL 10 MG TAB PO PRN (21:59)
[2017-07-07] MEDS ORDERED: CLONAZEPAM 0.5 MG TAB PO ONE (22:48)
[2017-07-08] VITALS (9 sets, daily range): BP systolic 160–205; BP diastolic 66–83; PULSE 66–80; TEMP 36.9–37.1; O2SAT 92–95
[2017-07-08] MEDS: HydrALAZINE HCL 20 MG/ML VIAL IV. PRN ×2 (04:01→18:46)
[2017-07-08] MEDS: NITROGLYCERIN 2% OINTMENT 30GM TUBE EXT SCH ×2 (05:04→11:30)
[2017-07-08] MEDS: LEVOTHYROXINE 25 MCG TAB PO SCH (06:08)
[2017-07-08] MEDS: HEPARIN SOD 5000 UNIT/0.5 ML CARP SQ SCH ×3 (06:09→21:10)
[2017-07-08 06:58] LABS: BASO % 0.4 %; BASO ABS # 0.03 K/uL (0-0.2); EOS % 2.7 %; EOS ABS # 0.18 K/uL (0-0.5); IG# 0.01 K/uL (0.00-0.02); LYMPH % 28.7 %; LYMPH ABS # 1.93 K/uL (1.2-3.4); MEAN CELL VOLUME 82.6 fL (80-100); MEAN CORPUSCULAR HEMOGLOBIN 27.5 pg (25-34); MEAN CORPUSCULAR HGB CONC 33.3 g/dl (32-36); MEAN PLATELET VOLUME 9.2 fL (7.4-10.4); MONO % 5.7 %; MONO ABS # 0.38 K/uL (0.11-0.59); NEUT % 62.4 %; NEUT ABS # 4.19 K/uL (1.4-6.5); PLATELET COUNT 204 K/uL (130-400); RED CELL DISTRIBUTION WIDTH CV 16.1 % (11.5-14.5); WHITE BLOOD COUNT 6.72 K/uL (4.8-10.8)
[2017-07-08] MEDS: AMLODIPINE BESYLATE 5 MG TAB PO SCH (07:15)
[2017-07-08] MEDS: CARVEDILOL 6.25 MG TAB PO SCH (07:17)
[2017-07-08 07:18] LABS: CALCIUM 8.1 mg/dl (8.5-10.1); CREATININE 2.37 mg/dl (0.60-1.20); POTASSIUM 3.8 mmol/L (3.5-5.1)
[2017-07-08] MEDS: FLUTICASONE FUROATE VILANTEROL INH SCH (07:58)
[2017-07-08] MEDS: FLUTICASONE PROPIONATE NA SPR 16 GM BTL NAE SCH (08:08)
[2017-07-08] MEDS: ASPIRIN 81 MG ECTAB PO SCH (08:08)
[2017-07-08] MEDS: CLOPIDOGREL BISULFATE 75 MG TAB PO SCH (08:17)
[2017-07-08] MEDS: SERTRALINE HCL 100 MG TAB PO SCH (08:18)
[2017-07-08] MEDS: INSULIN ASPART 100 UNITS/ML 3 ML PEN SC SCH ×4 (08:25→21:09)
[2017-07-08] MEDS: ACETAMINOPHEN 325 MG TAB PO PRN ×2 (11:32→21:47)
[2017-07-08] MEDS ORDERED: FUROSEMIDE 40 MG TAB PO ONE (13:15)
--- NOTE | 2017-07-08 14:03 | NEPHROLOGY PROGRESS NOTE ---
DATE: 07/08/2017 SUBJECTIVE: Overnight, no new issues. She appears to be fairly comfortable, but her blood pressure continues to be high, most recent blood pressure is still 186/75, 93% on room air. PHYSICAL EXAMINATION: HEENT: Mucous membrane is moist. NECK: Supple. No jugular venous distention. VITAL SIGNS: Pulse rate 67 per minute. CHEST: Bilateral clear to auscultation. CARDIOVASCULAR: Regular rate and rhythm. No pedal edema. ABDOMEN: Soft, nontender. EXTREMITIES: Shows no edema. NEUROLOGIC: Awake, alert, oriented x3. LABORATORY TESTS: Reviewed from this morning - hemoglobin is 12.0, WBC 6.72, platelet count 204. Sodium 140, potassium 3.8, BUN 37; and creatinine 2.37, creatinine has been trending down yesterday was 2.83, this morning is 2.37, which is significantly down from the peak of 3.70 at the time of admission, her baseline is 2.0. ASSESSMENT AND PLAN: A 67-year-old female who fell at home just before coming to the Emergency Department for evaluation of several weeks of malaise, nausea and acute renal failure. 1. Acute renal failure. This is background chronic kidney disease IV with nephrotic range proteinuria, so obviously her baseline renal function is very abnormal with significant risk of acute renal failure. I think the prerenal component has already been taken care as she got fluid for 4 days and at this time her blood pressure is extremely high. She used to be on Lasix at home which has been on hold for almost a week now. I would restart the Lasix 40 mg p.o. once daily, increase the carvedilol to 12.5 twice daily. Agree with the increase in hydralazine dose. I would still hold off on the JALEEL and ARB at least for few more days. 2. Hypertension. Blood pressure is still very high, part of it has to be some degree of salt and fluid retention, even though she does not have edema on physical examination. Advanced chronic kidney disease patient, almost always needs some diuretics for blood pressure control. CONSUELOD
[2017-07-08] MEDS ORDERED: CLONAZEPAM 0.5 MG TAB PO ONE (16:15)
--- NOTE | 2017-07-08 18:40 | Progress Note ---
Internal Med Progress Note Date of Service: Jul 08, 2017. Provider Documentation: SUBJECTIVE: hand numbness improved still having diarrhea having headaches no chest pain or sob no nausea afebrile says after each meal having bowel movement OBJECTIVE: Vital Signs-as noted below Exam: General-alert and awake. Not in distress currently. ENT-Normal hearing Neck-no neck masses Lungs-cta b/l no wheezing no crackles present Heart-S1 and S2 heard regular rate and rhythm no murmurs . Abdomen-Soft bowel sounds present mild diffuse tender no distension Extremities-no edema no erythema Neuro-alert and awake moves extremities non focal Lab data as noted below. ASSESSMENT & PLAN: This is a 67-year-old female with a past medical history of CKD IV, CAD (s/p CABG x 3 in 2007), HTN, DM II and other medical problems listed below who presents with nausea and vomiting 2 weeks and HEBERT on CKD stage 4 and hypertensive urgency..Next day on 07/03/17 morning had an episode of seizure like activity.Stroke alert was called but was cancelled as patient came back to baseline. Ct and MRI head unremarkable.Seen by Neurology.N/V improved and tolerating diet. Was having stomach pain bu improved. Seen by GI but advised to f/u if needed.HEBERT slowly improving. Having difficulty controlling HTN. Nephrology on board and helping with anti hypertensives. Continue to monitor. PLAN to d/c when HEBERT and BP improves Possible Seizures Encephalopathy which is resolved now possibly post ictal? initially code purple was called and later stroke alert was called but cancelled as patient became alert and conversing while getting ct scan Greatly appreciate critical care help Neurology consulted and appreciate inputs Ct head unremarkable ammonia level unremarkable eeg and mri head unremarkable had another ct head as complained of hand numbness( mostly from elevated BP/ edema and it was negative study stable currently Acute on chronic CKD IV: prerenal vs ischemic ATN Recent viral infection possibly dehydration Presented with Cr of 3.7 t (from baseline ~2) received fluids cr 2.3 today a dose of Lasix given today Nephro consulted and appreciate inputs f/u labs Nausea: Likely from uremia, cystitis Zofran PRN seemed to improved Abdominal pain still has some soreness ct abd/pelvis on presentation unremarkable consulted GI as having persistent abdominal pain and appreciate inputs stable currently Diarrhea will f/u c diff studies UTI: Oliguria, suprapubic pain Abd/pelvis CT with mild circumferential bladder wall thickening could suggest infectious cystitis received Rocephin currently on Omnicef- completed the course Headache: 2/2 dehydration hypertensive urgency Tylenol prn Hypertensive urgency: On amlodipine, metoprolol , lisinopril and lasix lisinopril and lasix on hold for HEBERT metoprolol dose increased to 50mg bid amlodipine increased to 10mg daily started on po hydralazine and increased to 75mg tid today changed metoprolol to Coreg and increased dose to 12.5mg bid today added nitro past as BP still high yesterday but will stop it as patient having headaches Nephro gave a dose of Lasix today iv hydralazine prn sent labs for metanephrines continue close monitor CAD (s/p CABG x 3 in 2007): asymptomatic EKG no change DM II: Improved since weight loss hba1c 7.9 holding home meds on iss fairly controlled will monitor Mood disorder: on sertraline DVT Ppx: SQ heparin Code status: FULL per admission. PCP: Neda Mcmanus Dispo: monitor in tele to be determined Vital Signs: Date Time Temp Pulse Resp B/P (MAP) Pulse Ox O2 Delivery O2 Flow Rate FiO2 07/08/17 18:57 37.0 80 20 198/81 (120) 93 07/08/17 16:00 Room Air 07/08/17 15:48 37.1 73 18 166/79 (108) 95 Room Air 07/08/17 14:00 71 171/69 (103) 07/08/17 12:00 Room Air 07/08/17 11:31 37.1 67 16 186/75 (112) 93 Room Air 07/08/17 08:00 Room Air 07/08/17 07:04 36.9 74 16 173/73 (106) 92 Room Air 07/08/17 05:02 68 173/67 (102) 07/08/17 04:00 Room Air 07/08/17 03:59 36.9 66 18 205/80 (121) 95 Room Air 200/75 (116) 07/08/17 00:00 Room Air 07/07/17 23:19 36.3 71 24 169/75 (106) 96 Room Air 07/07/17 22:47 74 162/76 (104) 07/07/17 20:32 64 178/72 (107) 07/07/17 20:00 Room Air 07/07/17 19:40 69 178/62 (100) Lab Results: Results Past 24 Hours Test 07/07/17 20:07 07/08/17 06:34 07/08/17 07:18 07/08/17 08:14 Range/Units Bedside Glucose 165 175 70-90 mg/dl White Blood Count 6.72 4.8-10.8 K/uL Red Blood Count 4.36 4.2-5.4 M/uL Hemoglobin 12.0 12.0-16.0 g/dL Hematocrit 36.0 37-47 % Mean Corpuscular Volume 82.6 80-100 fL Mean Corpuscular Hemoglobin 27.5 25-34 pg Mean Corpuscular Hemoglobin Concent 33.3 32-36 g/dl Platelet Count 204 130-400 K/uL Mean Platelet Volume 9.2 7.4-10.4 fL Neutrophils (%) (Auto) 62.4 % Lymphocytes (%) (Auto) 28.7 % Monocytes (%) (Auto) 5.7 % Eosinophils (%) (Auto) 2.7 % Basophils (%) (Auto) 0.4 % Neutrophils # (Auto) 4.19 1.4-6.5 K/uL Lymphocytes # (Auto) 1.93 1.2-3.4 K/uL Monocytes # (Auto) 0.38 0.11-0.59 K/uL Eosinophils # (Auto) 0.18 0-0.5 K/uL Basophils # (Auto) 0.03 0-0.2 K/uL RDW Standard Deviation 49.0 36.4-46.3 fL RDW Coefficient of Variation 16.1 11.5-14.5 % Immature Granulocyte % (Auto) 0.1 % Immature Granulocyte # (Auto) 0.01 0.00-0.02 K/uL Sodium Level 140 136-145 mmol/L Potassium Level 3.8 3.5-5.1 mmol/L Chloride Level 110 98-107 mmol/L Carbon Dioxide Level 22 21-32 mmol/L Anion Gap 8.0 3-11 mmol/L Blood Urea Nitrogen 37 7-18 mg/dl Creatinine 2.37 0.60-1.20 mg/dl Est Creatinine Clear Calc Drug Dose 21.1 ml/min Estimated GFR () 23.5 Estimated GFR (Non- 20.2 BUN/Creatinine Ratio 15.4 10-20 Random Glucose 187 70-99 mg/dl Calcium Level 8.1 8.5-10.1 mg/dl Magnesium Level 2.2 1.8-2.4 mg/dl Test 07/08/17 11:41 07/08/17 16:13 Range/Units Bedside Glucose 142 140 70-90 mg/dl
[2017-07-08] MEDS: SUVOREXANT 10 MG PO SCH (21:00)
[2017-07-08] MEDS: MIRTAZAPINE TAB 15 MG TAB PO SCH (21:02)
[2017-07-08] MEDS: CLONAZEPAM 0.5 MG TAB PO SCH (21:02)
[2017-07-08] MEDS: CARVEDILOL 12.5 MG TAB PO SCH (21:03)
[2017-07-08] MEDS: MAGNESIUM OXIDE 400 MG TAB PO SCH (21:03)
[2017-07-08] MEDS: MONTELUKAST SOD 10 MG TAB PO SCH (21:04)
[2017-07-09] VITALS (7 sets, daily range): BP systolic 166–186; BP diastolic 68–82; PULSE 68–74; TEMP 36.4–36.9; O2SAT 92–96
[2017-07-09] MEDS: HydrALAZINE HCL 20 MG/ML VIAL IV. PRN ×3 (04:46→22:17)
[2017-07-09] MEDS: ACETAMINOPHEN 325 MG TAB PO PRN ×2 (04:50→16:17)
[2017-07-09] MEDS: LEVOTHYROXINE 25 MCG TAB PO SCH (05:48)
[2017-07-09] MEDS: HEPARIN SOD 5000 UNIT/0.5 ML CARP SQ SCH ×3 (05:48→20:46)
[2017-07-09 06:39] LABS: BASO % 0.5 %; BASO ABS # 0.03 K/uL (0-0.2); EOS % 2.6 %; EOS ABS # 0.17 K/uL (0-0.5); HEMATOCRIT 37.1 % (37-47); HEMOGLOBIN 12.6 g/dL (12.0-16.0); IG# 0.01 K/uL (0.00-0.02); LYMPH % 30.8 %; LYMPH ABS # 2.03 K/uL (1.2-3.4); MEAN CELL VOLUME 82.3 fL (80-100); MEAN CORPUSCULAR HEMOGLOBIN 27.9 pg (25-34); MEAN PLATELET VOLUME 9.2 fL (7.4-10.4); MONO % 6.4 %; MONO ABS # 0.42 K/uL (0.11-0.59); NEUT % 59.5 %; NEUT ABS # 3.93 K/uL (1.4-6.5); PLATELET COUNT 215 K/uL (130-400); RED CELL DISTRIBUTION WIDTH CV 16.1 % (11.5-14.5); RED CELL DISTRIBUTION WIDTH SD 48.6 fL (36.4-46.3); WHITE BLOOD COUNT 6.59 K/uL (4.8-10.8)
[2017-07-09 07:06] LABS: CALCIUM 8.1 mg/dl (8.5-10.1); CREATININE 2.37 mg/dl (0.60-1.20); POTASSIUM 3.7 mmol/L (3.5-5.1)
[2017-07-09] MEDS: CARVEDILOL 12.5 MG TAB PO SCH ×2 (07:16→20:48)
[2017-07-09] MEDS: AMLODIPINE BESYLATE 5 MG TAB PO SCH (07:16)
[2017-07-09] MEDS: FLUTICASONE FUROATE VILANTEROL INH SCH (08:47)
[2017-07-09] MEDS: FLUTICASONE PROPIONATE NA SPR 16 GM BTL NAE SCH (08:47)
--- NOTE | 2017-07-09 08:54 | Nephrology Progress Note ---
Nephrology Progress Note Date of Service: Jul 09, 2017. Subjective 67 yo female with ckd stage 4 with kellen and volume depletion which improved with fluids. now with continued high blood pressures. pt feels good. undergoing 24 hour urine for metanephrines. no specific complaints. pt has lost over 160 pounds. Objective Date Time Temp Pulse Resp B/P (MAP) Pulse Ox O2 Delivery O2 Flow Rate FiO2 07/09/17 07:16 36.9 71 18 176/74 (108) 93 Room Air 07/09/17 05:48 179/68 (105) 07/09/17 04:31 36.4 71 18 186/78 (114) 95 Room Air 1.0 07/09/17 04:00 Room Air 07/09/17 00:00 Room Air 07/08/17 22:58 37.0 69 18 160/83 (108) 94 07/08/17 20:11 164/66 (98) 07/08/17 20:00 Room Air 07/08/17 18:57 37.0 80 20 198/81 (120) 93 07/08/17 16:00 Room Air 07/08/17 15:48 37.1 73 18 166/79 (108) 95 Room Air 07/08/17 14:00 71 171/69 (103) 07/08/17 12:00 Room Air 07/08/17 11:31 37.1 67 16 186/75 (112) 93 Room Air Physical Exam: General-aaox3 Eyes-no scleral icterus ENT-mmm Neck-supple Lungs-cta Heart-rrr Abdomen-bs+ s/nt/nd Extremities-no c/c/e Neuro-nonfocal Current Inpatient Medications Medications (Trade) Dose Ordered Sig/Millie Route Start Time Stop Time Status Last Admin Dose Admin Acetaminophen (Tylenol Tab) 650 mg Q4H PRN PO 07/02/17 19:45 08/01/17 19:44 07/09/17 04:50 650 MG Heparin Sodium (Porcine) (Heparin Sq 5000 Unit/0.5ml) 5,000 unit Q8 SQ 07/03/17 07:00 08/02/17 06:59 07/09/17 05:48 5,000 UNIT Ondansetron HCl (Zofran Inj) 4 mg Q6H PRN IV 07/02/17 19:45 08/01/17 19:44 07/04/17 13:46 4 MG Albuterol (Ventolin Hfa Inhaler) 2 puffs Q6 PRN INH 07/02/17 20:15 08/01/17 20:14 Mirtazapine (Remeron Tab) 30 mg HS PO 07/02/17 21:00 08/01/17 20:59 07/08/17 21:02 30 MG Montelukast Sodium (Singulair Tab) 10 mg HS PO 07/02/17 21:00 08/01/17 20:59 07/08/17 21:04 10 MG Nitroglycerin (Nitrostat Tab) 0.4 mg PRN UT 07/02/17 20:15 08/01/17 20:14 Sertraline HCl (Zoloft Tab) 150 mg DAILY PO 07/03/17 09:00 08/02/17 08:59 07/08/17 08:18 150 MG Insulin Aspart (novoLOG ASPART) SLIDING SCALE If C... ACHS SC 07/02/17 21:00 08/01/17 20:59 07/08/17 21:09 1 UNITS Glucose (Glucose 40% Gel) 15-30 GRAMS 15 GRAMS... UD PRN PO 07/02/17 20:30 08/01/17 20:29 Glucose (Glucose Chew Tab) 4-8 Tablets 4 Tabl... UD PRN PO 07/02/17 20:30 08/01/17 20:29 Dextrose (Dextrose 50% 50ML Syringe) 25-50ML OF 50% DW IV FOR... UD PRN IV 07/02/17 20:30 08/01/17 20:29 Glucagon (Glucagon Inj) 1 mg UD PRN SQ 07/02/17 20:30 08/01/17 20:29 Zolpidem Tartrate (Ambien Tab) 5 mg HS PRN PO 07/02/17 22:45 08/01/17 22:44 Future Hold 07/03/17 00:32 5 MG Morphine Sulfate (MoRPHine SULFATE INJ) 2 mg Q2H PRN IV 07/03/17 10:00 07/17/17 09:59 07/03/17 23:09 2 MG Magnesium Oxide (Mag-Ox Tab) 400 mg HS PO 07/03/17 21:00 08/02/17 20:59 4/1/18 21:03 400 MG Amlodipine Besylate (Norvasc Tab) 10 mg DAILY PO 07/05/17 09:00 08/04/17 08:59 07/09/17 07:16 10 MG Clonazepam (Klonopin Tab) 0.5 mg HS PO 07/05/17 21:00 08/04/17 20:59 07/08/17 21:02 0.5 MG Suvorexant (Belsomra) 10 mg HS PO 07/05/17 21:00 08/04/17 20:59 07/07/17 20:47 10 MG Aspirin (Ecotrin Tab) 81 mg DAILY PO 07/06/17 09:00 08/05/17 08:59 07/08/17 08:08 81 MG Clopidogrel Bisulfate (plAVix TAB) 75 mg DAILY PO 07/06/17 09:00 08/05/17 08:59 07/08/17 08:17 75 MG Cyclobenzaprine HCl (Flexeril Tab) 5 mg TID PRN PO 07/05/17 17:15 08/04/17 17:14 07/07/17 21:59 5 MG Fluticasone Propionate (Flonase Nasal [place]) 2 sprays DAILY DENIZ 07/06/17 09:00 08/05/17 08:59 07/08/17 08:08 2 SPRAYS Levothyroxine Sodium (Synthroid Tab) 25 mcg DAILYBB PO 07/06/17 06:30 08/05/17 06:29 07/09/17 05:48 25 MCG Hydralazine HCl (HydrALAZINE INJ) 10 mg Q6H PRN IV. 07/05/17 18:30 08/04/17 18:29 07/09/17 04:46 10 MG Fluticasone/ Vilanterol (Breo Ellipta 100-25 Mcg/Inh) 1 puffs DAILY INH 07/08/17 09:00 08/07/17 08:59 07/08/17 07:58 1 PUFFS Hydralazine HCl (Apresoline Tab) 75 mg TID PO 07/08/17 14:00 08/02/17 13:59 07/09/17 07:15 75 MG Carvedilol (Coreg Tab) 12.5 mg BID PO 07/08/17 21:00 08/07/17 20:59 07/09/17 07:16 12.5 MG Last 24 Hours Test 07/08/17 11:41 07/08/17 16:13 07/08/17 20:09 07/09/17 06:16 Bedside Glucose 142 mg/dl 140 mg/dl 185 mg/dl White Blood Count 6.59 K/uL Red Blood Count 4.51 M/uL Hemoglobin 12.6 g/dL Hematocrit 37.1 % Mean Corpuscular Volume 82.3 fL Mean Corpuscular Hemoglobin 27.9 pg Mean Corpuscular Hemoglobin Concent 34.0 g/dl Platelet Count 215 K/uL Mean Platelet Volume 9.2 fL Neutrophils (%) (Auto) 59.5 % Lymphocytes (%) (Auto) 30.8 % Monocytes (%) (Auto) 6.4 % Eosinophils (%) (Auto) 2.6 % Basophils (%) (Auto) 0.5 % Neutrophils # (Auto) 3.93 K/uL Lymphocytes # (Auto) 2.03 K/uL Monocytes # (Auto) 0.42 K/uL Eosinophils # (Auto) 0.17 K/uL Basophils # (Auto) 0.03 K/uL RDW Standard Deviation 48.6 fL RDW Coefficient of Variation 16.1 % Immature Granulocyte % (Auto) 0.2 % Immature Granulocyte # (Auto) 0.01 K/uL Sodium Level 139 mmol/L Potassium Level 3.7 mmol/L Chloride Level 108 mmol/L Carbon Dioxide Level 22 mmol/L Anion Gap 9.0 mmol/L Blood Urea Nitrogen 34 mg/dl Creatinine 2.37 mg/dl Est Creatinine Clear Calc Drug Dose 21.0 ml/min Estimated GFR () 23.5 Estimated GFR (Non- 20.2 BUN/Creatinine Ratio 14.2 Random Glucose 184 mg/dl Calcium Level 8.1 mg/dl Magnesium Level 2.0 mg/dl Test 07/09/17 07:20 Bedside Glucose 171 mg/dl Assessment & Plan kellen on ckd stage 4-creatinine has improved back to baseline. HTN: meds have been adjusted. restarted diuretics and continuing them at lasix 40mg a day. undergoing 24 hour urine for metanephrines. would also like to screen for renal artery stenosis. bp still elevated.
[2017-07-09] MEDS: ONDANSETRON INJ 2 MG/ML 2 ML VIAL IV PRN ×2 (08:56→18:30)
[2017-07-09] MEDS: ASPIRIN 81 MG ECTAB PO SCH (08:58)
[2017-07-09] MEDS: SERTRALINE HCL 100 MG TAB PO SCH (09:01)
[2017-07-09] MEDS: INSULIN ASPART 100 UNITS/ML 3 ML PEN SC SCH ×4 (09:05→20:41)
[2017-07-09] MEDS: FUROSEMIDE 40 MG TAB PO SCH (09:41)
[2017-07-09] MEDS: CLOPIDOGREL BISULFATE 75 MG TAB PO SCH (09:41)
--- NOTE | 2017-07-09 11:30 | DIAGNOSTIC IMAGING REPORT ---
DUPLEX RENAL ARTERY ULTRASOUND CLINICAL HISTORY: hypertension, screen for renal artery stenosis COMPARISON STUDY: Renal ultrasound 05/29/2016. FINDINGS: The right kidney measures 10.5 centers in the left kidney measures 12.0 cm. Stable 9 mm cyst within the lower pole the right kidney. No hydronephrosis. Peak systolic velocity within the right renal artery was 63 cm/s and the left renal artery was 124 cm/s. The peak systolic velocity within the aorta was 138 cm/s. Normal corticomedullary differentiation and cortical thickness. Bilateral renal veins are patent. IMPRESSION: No evidence for renal artery stenosis. Electronically signed by: Jose Steinberg M.D. 07/09/2017 11:28 AM Dictated Date/Time: 07/09/2017 11:26 AM
--- NOTE | 2017-07-09 16:08 | Progress Note ---
Medicine Progress Note Date & Time of Visit: Jul 09, 2017 at 15:54. Subjective seen resting in bed, comfortable in good spirits states she feels ok , just tired denies chest pain, dyspnea, palpitations, dizziness, nausea, headache no other symptoms Objective Last 8 Hrs Date Time Temp Pulse Resp B/P (MAP) Pulse Ox O2 Delivery O2 Flow Rate FiO2 07/09/17 15:36 36.7 71 20 166/68 (100) 92 Room Air 07/09/17 11:52 36.8 68 16 184/82 (116) 92 Room Air 07/09/17 08:00 Room Air Physical Exam: General- oriented x 3, not in distress, speaks in sentences with no effort Head- atraumatic Eyes- PERRL, EOMI, anicteric ENT- oropharynx clear Neck- supple, no JVD, no adenopathy, no thyromegaly Lungs- clear breath sounds bilaterally Heart- regular rhythm; no murmur, normal rate Abdomen- normal bowel sounds, soft, nontender, no masses Extremities- no pretibial edema, no calf tenderness; peripheral pulses intact Neuro- alert, oriented x 3; no gross focal deficits Skin- warm & dry Laboratory Results: Last 24 Hours Test 07/08/17 16:13 07/08/17 20:09 07/09/17 06:16 07/09/17 07:20 Bedside Glucose 140 mg/dl 185 mg/dl 171 mg/dl White Blood Count 6.59 K/uL Red Blood Count 4.51 M/uL Hemoglobin 12.6 g/dL Hematocrit 37.1 % Mean Corpuscular Volume 82.3 fL Mean Corpuscular Hemoglobin 27.9 pg Mean Corpuscular Hemoglobin Concent 34.0 g/dl Platelet Count 215 K/uL Mean Platelet Volume 9.2 fL Neutrophils (%) (Auto) 59.5 % Lymphocytes (%) (Auto) 30.8 % Monocytes (%) (Auto) 6.4 % Eosinophils (%) (Auto) 2.6 % Basophils (%) (Auto) 0.5 % Neutrophils # (Auto) 3.93 K/uL Lymphocytes # (Auto) 2.03 K/uL Monocytes # (Auto) 0.42 K/uL Eosinophils # (Auto) 0.17 K/uL Basophils # (Auto) 0.03 K/uL RDW Standard Deviation 48.6 fL RDW Coefficient of Variation 16.1 % Immature Granulocyte % (Auto) 0.2 % Immature Granulocyte # (Auto) 0.01 K/uL Sodium Level 139 mmol/L Potassium Level 3.7 mmol/L Chloride Level 108 mmol/L Carbon Dioxide Level 22 mmol/L Anion Gap 9.0 mmol/L Blood Urea Nitrogen 34 mg/dl Creatinine 2.37 mg/dl Est Creatinine Clear Calc Drug Dose 21.0 ml/min Estimated GFR () 23.5 Estimated GFR (Non- 20.2 BUN/Creatinine Ratio 14.2 Random Glucose 184 mg/dl Calcium Level 8.1 mg/dl Magnesium Level 2.0 mg/dl Test 07/09/17 08:25 07/09/17 11:30 Bedside Glucose 190 mg/dl Assessment & Plan This is a 67-year-old female with a past medical history of CKD IV, CAD (s/p CABG x 3 in 2007), HTN, DM II and other medical problems listed below who presents with nausea and vomiting 2 weeks and HEBERT on CKD stage 4 and hypertensive urgency ACUTE RENAL FAILURE ON CKD 4 Likely Pre Renal Etiology history of nausea/vomiting x 2 week prior to admission Presented with Cr of 3.7 t (from baseline ~2) -- Nephro consulted IV fluids given crea improved to 2.3 -- usual Lasix resumed monitor HYPERTENSIVE URGENCY UNCONTROLLED HYPERTENSION -- BP medications adjusted Metoprolol changed Carvedilol Amlodipine, Hydralazine added -- Lasix resumed today monitor BP -- work up: Renal US negative for Renal Artery stenosis metanephrine level: pending Possible Seizures Encephalopathy which is resolved now possibly post ictal? initially code purple was called and later stroke alert was called but cancelled as patient became alert and conversing while getting ct scan Ct head unremarkable ammonia level unremarkable eeg and mri head unremarkable -- Neurology consulted no further work up at this time monitor as outpatient Nausea: Likely from uremia, cystitis Zofran PRN -- resolved Abdominal pain still has some soreness ct abd/pelvis on presentation unremarkable consulted GI as having persistent abdominal pain and appreciate inputs -- resolved Diarrhea -- resolved UTI: Oliguria, suprapubic pain Abd/pelvis CT with mild circumferential bladder wall thickening could suggest infectious cystitis received Rocephin -- s/p Cefepime Headache: 2/2 dehydration hypertensive urgency Tylenol prn -- resolved CAD (s/p CABG x 3 in 2007): asymptomatic EKG: no change DM II: Improved since weight loss hba1c 7.9 -- monitor Mood disorder: on sertraline DVT Ppx: SQ heparin Code status: FULL per admission. PCP: Neda Mcmanus Dispo: management of uncontrolled HTN in progress lives with at home anticipate d/c when medically stable Current Inpatient Medications: Current Inpatient Medications Medications (Trade) Dose Ordered Sig/Millie Route Start Time Stop Time Status Last Admin Dose Admin Acetaminophen (Tylenol Tab) 650 mg Q4H PRN PO 07/02/17 19:45 08/01/17 19:44 07/09/17 04:50 650 MG Heparin Sodium (Porcine) (Heparin Sq 5000 Unit/0.5ml) 5,000 unit Q8 SQ 07/03/17 07:00 08/02/17 06:59 07/09/17 13:14 5,000 UNIT Ondansetron HCl (Zofran Inj) 4 mg Q6H PRN IV 07/02/17 19:45 08/01/17 19:44 07/09/17 08:56 4 MG Albuterol (Ventolin Hfa Inhaler) 2 puffs Q6 PRN INH 07/02/17 20:15 08/01/17 20:14 Mirtazapine (Remeron Tab) 30 mg HS PO 07/02/17 21:00 08/01/17 20:59 07/08/17 21:02 30 MG Montelukast Sodium (Singulair Tab) 10 mg HS PO 07/02/17 21:00 08/01/17 20:59 07/08/17 21:04 10 MG Nitroglycerin (Nitrostat Tab) 0.4 mg PRN UT 07/02/17 20:15 08/01/17 20:14 Sertraline HCl (Zoloft Tab) 150 mg DAILY PO 07/03/17 09:00 08/02/17 08:59 07/09/17 09:01 150 MG Insulin Aspart (novoLOG ASPART) SLIDING SCALE If C... ACHS SC 07/02/17 21:00 08/01/17 20:59 07/09/17 13:13 6 UNITS Glucose (Glucose 40% Gel) 15-30 GRAMS 15 GRAMS... UD PRN PO 07/02/17 20:30 08/01/17 20:29 Glucose (Glucose Chew Tab) 4-8 Tablets 4 Tabl... UD PRN PO 07/02/17 20:30 08/01/17 20:29 Dextrose (Dextrose 50% 50ML Syringe) 25-50ML OF 50% DW IV FOR... UD PRN IV 07/02/17 20:30 08/01/17 20:29 Glucagon (Glucagon Inj) 1 mg UD PRN SQ 07/02/17 20:30 08/01/17 20:29 Zolpidem Tartrate (Ambien Tab) 5 mg HS PRN PO 07/02/17 22:45 08/01/17 22:44 Future Hold 07/03/17 00:32 5 MG Morphine Sulfate (MoRPHine SULFATE INJ) 2 mg Q2H PRN IV 07/03/17 10:00 07/17/17 09:59 07/03/17 23:09 2 MG Magnesium Oxide (Mag-Ox Tab) 400 mg HS PO 07/03/17 21:00 08/02/17 20:59 07/08/17 21:03 400 MG Amlodipine Besylate (Norvasc Tab) 10 mg DAILY PO 07/05/17 09:00 08/04/17 08:59 07/09/17 07:16 10 MG Clonazepam (Klonopin Tab) 0.5 mg HS PO 07/05/17 21:00 08/04/17 20:59 07/08/17 21:02 0.5 MG Suvorexant (Belsomra) 10 mg HS PO 07/05/17 21:00 08/04/17 20:59 07/07/17 20:47 10 MG Aspirin (Ecotrin Tab) 81 mg DAILY PO 07/06/17 09:00 08/05/17 08:59 07/09/17 08:58 81 MG Clopidogrel Bisulfate (plAVix TAB) 75 mg DAILY PO 07/06/17 09:00 08/05/17 08:59 07/09/17 09:41 75 MG Cyclobenzaprine HCl (Flexeril Tab) 5 mg TID PRN PO 07/05/17 17:15 08/04/17 17:14 07/07/17 21:59 5 MG Fluticasone Propionate (Flonase Nasal [place]) 2 sprays DAILY DENIZ 07/06/17 09:00 08/05/17 08:59 07/09/17 08:47 2 SPRAYS Levothyroxine Sodium (Synthroid Tab) 25 mcg DAILYBB PO 07/06/17 06:30 08/05/17 06:29 07/09/17 05:48 25 MCG Hydralazine HCl (HydrALAZINE INJ) 10 mg Q6H PRN IV. 07/05/17 18:30 08/04/17 18:29 07/09/17 11:58 10 MG Fluticasone/ Vilanterol (Breo Ellipta 100-25 Mcg/Inh) 1 puffs DAILY INH 07/08/17 09:00 08/07/17 08:59 07/09/17 08:47 1 PUFFS Hydralazine HCl (Apresoline Tab) 75 mg TID PO 07/08/17 14:00 08/02/17 13:59 07/09/17 13:12 75 MG Carvedilol (Coreg Tab) 12.5 mg BID PO 07/08/17 21:00 08/07/17 20:59 07/09/17 07:16 12.5 MG Furosemide (Lasix Tab) 40 mg QAM PO 07/09/17 09:00 08/08/17 08:59 07/09/17 09:41 40 MG
[2017-07-09] MEDS: SUVOREXANT 10 MG PO SCH (20:40)
[2017-07-09] MEDS: CLONAZEPAM 0.5 MG TAB PO SCH (20:40)
[2017-07-09] MEDS: MAGNESIUM OXIDE 400 MG TAB PO SCH (20:40)
[2017-07-09] MEDS: MIRTAZAPINE TAB 15 MG TAB PO SCH (20:41)
[2017-07-09] MEDS: MONTELUKAST SOD 10 MG TAB PO SCH (20:41)
[2017-07-09] MEDS ORDERED: CLONAZEPAM 0.5 MG TAB PO ONE (22:47)
[2017-07-10] VITALS (11 sets, daily range): BP systolic 153–199; BP diastolic 69–92; PULSE 67–76; TEMP 36.5–37.1; O2SAT 91–96
[2017-07-10] MEDS: HEPARIN SOD 5000 UNIT/0.5 ML CARP SQ SCH ×2 (05:59→13:55)
[2017-07-10] MEDS: LEVOTHYROXINE 25 MCG TAB PO SCH (06:00)
[2017-07-10 06:42] LABS: BASO % 0.4 %; BASO ABS # 0.03 K/uL (0-0.2); EOS % 1.7 %; EOS ABS # 0.12 K/uL (0-0.5); HEMATOCRIT 38.6 % (37-47); HEMOGLOBIN 13.1 g/dL (12.0-16.0); IG# 0.01 K/uL (0.00-0.02); LYMPH % 28.8 %; LYMPH ABS # 2.01 K/uL (1.2-3.4); MEAN CELL VOLUME 82.5 fL (80-100); MEAN CORPUSCULAR HGB CONC 33.9 g/dl (32-36); MONO ABS # 0.42 K/uL (0.11-0.59); NEUT ABS # 4.38 K/uL (1.4-6.5); PLATELET COUNT 212 K/uL (130-400); RED CELL DISTRIBUTION WIDTH CV 16.4 % (11.5-14.5); RED CELL DISTRIBUTION WIDTH SD 49.2 fL (36.4-46.3); WHITE BLOOD COUNT 6.97 K/uL (4.8-10.8)
[2017-07-10 07:10] LABS: CALCIUM 8.6 mg/dl (8.5-10.1); CREATININE 2.28 mg/dl (0.60-1.20); POTASSIUM 3.8 mmol/L (3.5-5.1)
[2017-07-10] MEDS: FUROSEMIDE 40 MG TAB PO SCH (07:30)
[2017-07-10] MEDS: ASPIRIN 81 MG ECTAB PO SCH (07:30)
[2017-07-10] MEDS: CLOPIDOGREL BISULFATE 75 MG TAB PO SCH (07:30)
[2017-07-10] MEDS: CARVEDILOL 12.5 MG TAB PO SCH ×2 (07:30→20:51)
[2017-07-10] MEDS: FLUTICASONE FUROATE VILANTEROL INH SCH (07:31)
[2017-07-10] MEDS: FLUTICASONE PROPIONATE NA SPR 16 GM BTL NAE SCH (07:31)
[2017-07-10] MEDS: SERTRALINE HCL 100 MG TAB PO SCH (07:31)
[2017-07-10] MEDS: AMLODIPINE BESYLATE 5 MG TAB PO SCH (07:31)
[2017-07-10] MEDS: INSULIN ASPART 100 UNITS/ML 3 ML PEN SC SCH ×4 (07:53→20:58)
[2017-07-10] MEDS: ONDANSETRON INJ 2 MG/ML 2 ML VIAL IV PRN ×2 (09:08→18:20)
[2017-07-10] MEDS: HydrALAZINE HCL 20 MG/ML VIAL IV. PRN (11:21)
[2017-07-10] MEDS ORDERED: LORAZEPAM 0.5 MG TAB PO ONE (12:48)
[2017-07-10] MEDS ORDERED: LORAZEPAM 0.5 MG TAB PO PRN (13:00)
--- NOTE | 2017-07-10 18:17 | Progress Note ---
Medicine Progress Note Date & Time of Visit: Jul 10, 2017 at 18:14. Subjective seen resting in bed sleeping but easily rousable states she did not have a good sleep as she was being awakened frequently has mild frontal headache denies chest pain, dyspnea, nausea no other symptoms Objective Last 8 Hrs Date Time Temp Pulse Resp B/P (MAP) Pulse Ox O2 Delivery O2 Flow Rate FiO2 07/10/17 16:05 92 Room Air 07/10/17 15:42 36.8 73 20 170/77 (108) 91 07/10/17 12:49 36.7 70 70 181/85 (117) 96 Room Air 07/10/17 12:00 96 Room Air 07/10/17 11:21 36.7 67 16 194/92 (126) 96 Room Air Physical Exam: General- oriented x 3, not in distress, speaks in sentences with no effort Eyes- anicteric ENT- oropharynx clear Neck- supple, no JVD, Lungs- clear breath sounds bilaterally, no rales/wheezes Heart- regular rhythm; no murmur, normal rate Abdomen- normal bowel sounds, soft, nontender, no masses Extremities- no pretibial edema, no calf tenderness; peripheral pulses intact Neuro- alert, oriented x 3; no gross focal deficits Skin- warm & dry Laboratory Results: Last 24 Hours Test 07/09/17 20:36 07/10/17 06:26 07/10/17 07:32 07/10/17 11:28 Bedside Glucose 118 mg/dl 170 mg/dl 209 mg/dl White Blood Count 6.97 K/uL Red Blood Count 4.68 M/uL Hemoglobin 13.1 g/dL Hematocrit 38.6 % Mean Corpuscular Volume 82.5 fL Mean Corpuscular Hemoglobin 28.0 pg Mean Corpuscular Hemoglobin Concent 33.9 g/dl Platelet Count 212 K/uL Mean Platelet Volume 9.0 fL Neutrophils (%) (Auto) 63.0 % Lymphocytes (%) (Auto) 28.8 % Monocytes (%) (Auto) 6.0 % Eosinophils (%) (Auto) 1.7 % Basophils (%) (Auto) 0.4 % Neutrophils # (Auto) 4.38 K/uL Lymphocytes # (Auto) 2.01 K/uL Monocytes # (Auto) 0.42 K/uL Eosinophils # (Auto) 0.12 K/uL Basophils # (Auto) 0.03 K/uL RDW Standard Deviation 49.2 fL RDW Coefficient of Variation 16.4 % Immature Granulocyte % (Auto) 0.1 % Immature Granulocyte # (Auto) 0.01 K/uL Red Blood Cell Morphology Unremarkable Sodium Level 140 mmol/L Potassium Level 3.8 mmol/L Chloride Level 108 mmol/L Carbon Dioxide Level 24 mmol/L Anion Gap 8.0 mmol/L Blood Urea Nitrogen 34 mg/dl Creatinine 2.28 mg/dl Est Creatinine Clear Calc Drug Dose 21.8 ml/min Estimated GFR () 24.6 Estimated GFR (Non- 21.2 BUN/Creatinine Ratio 14.8 Random Glucose 174 mg/dl Calcium Level 8.6 mg/dl Magnesium Level 2.0 mg/dl Test 07/10/17 16:11 Bedside Glucose 161 mg/dl Assessment & Plan This is a 67-year-old female with a past medical history of CKD IV, CAD (s/p CABG x 3 in 2007), HTN, DM II and other medical problems listed below who presents with nausea and vomiting 2 weeks and HEBERT on CKD stage 4 and hypertensive urgency ACUTE RENAL FAILURE ON CKD 4 Likely Pre Renal Etiology history of nausea/vomiting x 2 week prior to admission Presented with Cr of 3.7 t (from baseline ~2) -- Nephro consulted IV fluids given crea improved further to 2.2 -- usual Lasix resumed monitor HYPERTENSIVE URGENCY UNCONTROLLED HYPERTENSION -- BP medications adjusted Metoprolol changed Carvedilol Amlodipine, Hydralazine added -- Lasix resumed BP still not at goal -- add Clonidine 0.1mg BID monitor -- work up: Renal US negative for Renal Artery stenosis metanephrine level: pending Possible Seizures Encephalopathy which is resolved now possibly post ictal? initially code purple was called and later stroke alert was called but cancelled as patient became alert and conversing while getting ct scan Ct head unremarkable ammonia level unremarkable eeg and mri head unremarkable -- Neurology consulted no further work up at this time monitor as outpatient Nausea: Likely from uremia, cystitis Zofran PRN -- resolved Abdominal pain still has some soreness ct abd/pelvis on presentation unremarkable consulted GI as having persistent abdominal pain and appreciate inputs -- resolved Diarrhea -- resolved UTI: Oliguria, suprapubic pain Abd/pelvis CT with mild circumferential bladder wall thickening could suggest infectious cystitis received Rocephin -- s/p Cefepime Headache: 2/2 dehydration hypertensive urgency Tylenol prn CAD (s/p CABG x 3 in 2007): asymptomatic EKG: no change DM II: Improved since weight loss hba1c 7.9 -- monitor Mood disorder: on sertraline DVT Ppx: SQ heparin Code status: FULL per admission. PCP: Neda Mcmanus Dispo: management of uncontrolled HTN in progress lives with at home anticipate d/c when medically stable Current Inpatient Medications: Current Inpatient Medications Medications (Trade) Dose Ordered Sig/Millie Route Start Time Stop Time Status Last Admin Dose Admin Acetaminophen (Tylenol Tab) 650 mg Q4H PRN PO 07/02/17 19:45 08/01/17 19:44 07/09/17 16:17 650 MG Heparin Sodium (Porcine) (Heparin Sq 5000 Unit/0.5ml) 5,000 unit Q8 SQ 07/03/17 07:00 08/02/17 06:59 07/10/17 13:55 5,000 UNIT Ondansetron HCl (Zofran Inj) 4 mg Q6H PRN IV 07/02/17 19:45 08/01/17 19:44 07/10/17 09:08 4 MG Albuterol (Ventolin Hfa Inhaler) 2 puffs Q6 PRN INH 07/02/17 20:15 08/01/17 20:14 Mirtazapine (Remeron Tab) 30 mg HS PO 07/02/17 21:00 08/01/17 20:59 07/09/17 20:41 30 MG Montelukast Sodium (Singulair Tab) 10 mg HS PO 07/02/17 21:00 08/01/17 20:59 07/09/17 20:41 10 MG Nitroglycerin (Nitrostat Tab) 0.4 mg PRN UT 07/02/17 20:15 08/01/17 20:14 Sertraline HCl (Zoloft Tab) 150 mg DAILY PO 07/03/17 09:00 08/02/17 08:59 07/10/17 07:31 150 MG Insulin Aspart (novoLOG ASPART) SLIDING SCALE If C... ACHS SC 07/02/17 21:00 08/01/17 20:59 07/10/17 17:37 5 UNITS Glucose (Glucose 40% Gel) 15-30 GRAMS 15 GRAMS... UD PRN PO 07/02/17 20:30 08/01/17 20:29 Glucose (Glucose Chew Tab) 4-8 Tablets 4 Tabl... UD PRN PO 07/02/17 20:30 08/01/17 20:29 Dextrose (Dextrose 50% 50ML Syringe) 25-50ML OF 50% DW IV FOR... UD PRN IV 07/02/17 20:30 08/01/17 20:29 Glucagon (Glucagon Inj) 1 mg UD PRN SQ 07/02/17 20:30 08/01/17 20:29 Zolpidem Tartrate (Ambien Tab) 5 mg HS PRN PO 07/02/17 22:45 08/01/17 22:44 Future Hold 07/03/17 00:32 5 MG Morphine Sulfate (MoRPHine SULFATE INJ) 2 mg Q2H PRN IV 07/03/17 10:00 07/17/17 09:59 07/03/17 23:09 2 MG Magnesium Oxide (Mag-Ox Tab) 400 mg HS PO 07/03/17 21:00 08/02/17 20:59 07/09/17 20:40 400 MG Amlodipine Besylate (Norvasc Tab) 10 mg DAILY PO 07/05/17 09:00 08/04/17 08:59 07/10/17 07:31 10 MG Clonazepam (Klonopin Tab) 0.5 mg HS PO 07/05/17 21:00 08/04/17 20:59 07/09/17 20:40 0.5 MG Suvorexant (Belsomra) 10 mg HS PO 07/05/17 21:00 08/04/17 20:59 07/07/17 20:47 10 MG Aspirin (Ecotrin Tab) 81 mg DAILY PO 07/06/17 09:00 08/05/17 08:59 07/10/17 07:30 81 MG Clopidogrel Bisulfate (plAVix TAB) 75 mg DAILY PO 07/06/17 09:00 08/05/17 08:59 07/10/17 07:30 75 MG Cyclobenzaprine HCl (Flexeril Tab) 5 mg TID PRN PO 07/05/17 17:15 08/04/17 17:14 07/07/17 21:59 5 MG Fluticasone Propionate (Flonase Nasal [place]) 2 sprays DAILY DENIZ 07/06/17 09:00 08/05/17 08:59 07/10/17 07:31 2 SPRAYS Levothyroxine Sodium (Synthroid Tab) 25 mcg DAILYBB PO 07/06/17 06:30 08/05/17 06:29 07/10/17 06:00 25 MCG Hydralazine HCl (HydrALAZINE INJ) 10 mg Q6H PRN IV. 07/05/17 18:30 08/04/17 18:29 07/10/17 11:21 10 MG Fluticasone/ Vilanterol (Breo Ellipta 100-25 Mcg/Inh) 1 puffs DAILY INH 07/08/17 09:00 08/07/17 08:59 07/10/17 07:31 1 PUFFS Hydralazine HCl (Apresoline Tab) 75 mg TID PO 07/08/17 14:00 08/02/17 13:59 07/10/17 13:10 75 MG Carvedilol (Coreg Tab) 12.5 mg BID PO 07/08/17 21:00 08/07/17 20:59 07/10/17 07:30 12.5 MG Furosemide (Lasix Tab) 40 mg QAM PO 07/09/17 09:00 08/08/17 08:59 07/10/17 07:30 40 MG Lorazepam (Ativan Tab) 0.5 mg BID PRN PO 07/10/17 13:00 08/09/17 12:59
[2017-07-10] MEDS: CLONIDINE HCL 0.1 MG TAB PO SCH (20:49)
[2017-07-10] MEDS: CLONAZEPAM 0.5 MG TAB PO SCH (20:50)
[2017-07-10] MEDS: MONTELUKAST SOD 10 MG TAB PO SCH (20:52)
[2017-07-10] MEDS: MIRTAZAPINE TAB 15 MG TAB PO SCH (20:52)
[2017-07-10] MEDS: MAGNESIUM OXIDE 400 MG TAB PO SCH (20:52)
[2017-07-10] MEDS: SUVOREXANT 10 MG PO SCH (20:59)
[2017-07-10] MEDS: ACETAMINOPHEN 325 MG TAB PO PRN (23:30)
[2017-07-11] MEDS: INSULIN ASPART 100 UNITS/ML 3 ML PEN SC SCH ×3 (06:30→11:53)
[2017-07-11 06:48] LABS: HEMATOCRIT 34.9 % (37-47); HEMOGLOBIN 11.9 g/dL (12.0-16.0); MEAN CELL VOLUME 82.1 fL (80-100); MEAN CORPUSCULAR HGB CONC 34.1 g/dl (32-36); MEAN PLATELET VOLUME 8.9 fL (7.4-10.4); PLATELET COUNT 192 K/uL (130-400); RED CELL DISTRIBUTION WIDTH CV 16.1 % (11.5-14.5); RED CELL DISTRIBUTION WIDTH SD 48.2 fL (36.4-46.3); WHITE BLOOD COUNT 7.45 K/uL (4.8-10.8)
[2017-07-11] MEDS: LEVOTHYROXINE 25 MCG TAB PO SCH (07:01)
[2017-07-11 07:40] VITALS: BP 167/80; PULSE 65; TEMP 37; O2SAT 93
[2017-07-11 08:00] VITALS: O2SAT 93
[2017-07-11] MEDS: CLONIDINE HCL 0.1 MG TAB PO SCH (08:09)
[2017-07-11] MEDS: AMLODIPINE BESYLATE 5 MG TAB PO SCH (08:09)
[2017-07-11] MEDS: SERTRALINE HCL 100 MG TAB PO SCH (08:09)
[2017-07-11] MEDS: FUROSEMIDE 40 MG TAB PO SCH (08:10)
[2017-07-11] MEDS: CLOPIDOGREL BISULFATE 75 MG TAB PO SCH (08:10)
[2017-07-11] MEDS: FLUTICASONE PROPIONATE NA SPR 16 GM BTL NAE SCH (08:10)
[2017-07-11] MEDS: CARVEDILOL 12.5 MG TAB PO SCH (08:10)
[2017-07-11] MEDS: ASPIRIN 81 MG ECTAB PO SCH (08:10)
[2017-07-11] MEDS: FLUTICASONE FUROATE VILANTEROL INH SCH (08:11)
[2017-07-11 08:44] LABS: CALCIUM 8.2 mg/dl (8.5-10.1); CREATININE 2.26 mg/dl (0.60-1.20); POTASSIUM 4.1 mmol/L (3.5-5.1)
[2017-07-11 09:18] VITALS: BP 127/84; PULSE 72; TEMP 36.7; O2SAT 97
[2017-07-11 09:19] VITALS: BP 127/84; PULSE 72; TEMP 36.7; O2SAT 97
--- NOTE | 2017-07-11 11:00 | Progress Note ---
Medicine Progress Note Date & Time of Visit: Jul 11, 2017 at 10:50. Subjective seen resting in bed, comfortable states she feels better today denies dizziness, chest pain, headache, dyspnea ambulating with no problems no problems with urination no other symptoms states she is ready and would like to be discharged today Objective Last 8 Hrs Date Time Temp Pulse Resp B/P (MAP) Pulse Ox O2 Delivery O2 Flow Rate FiO2 07/11/17 09:19 36.7 72 18 97 Room Air 07/11/17 09:18 36.7 72 18 127/84 (98) 97 Room Air 07/11/17 08:00 93 Room Air 07/11/17 07:40 37.0 65 16 167/80 (109) 93 Room Air 07/11/17 04:00 Room Air Physical Exam: General- oriented x 3, not in distress, speaks in sentences with no effort Eyes- anicteric Neck- no JVD Lungs- clear breath sounds bilaterally Heart- regular rhythm; no murmur, normal rate Abdomen- normal bowel sounds, soft, nontender, no masses Extremities- no pretibial edema, no calf tenderness Neuro- alert, oriented x 3; no gross focal deficits Skin- warm & dry Laboratory Results: Last 24 Hours Test 07/10/17 11:28 07/10/17 16:11 07/10/17 20:35 07/11/17 06:22 Bedside Glucose 209 mg/dl 161 mg/dl 186 mg/dl White Blood Count 7.45 K/uL Red Blood Count 4.25 M/uL Hemoglobin 11.9 g/dL Hematocrit 34.9 % Mean Corpuscular Volume 82.1 fL Mean Corpuscular Hemoglobin 28.0 pg Mean Corpuscular Hemoglobin Concent 34.1 g/dl RDW Standard Deviation 48.2 fL RDW Coefficient of Variation 16.1 % Platelet Count 192 K/uL Mean Platelet Volume 8.9 fL Test 07/11/17 06:25 07/11/17 07:24 Sodium Level 141 mmol/L Potassium Level 4.1 mmol/L Chloride Level 109 mmol/L Carbon Dioxide Level 27 mmol/L Anion Gap 5.0 mmol/L Blood Urea Nitrogen 33 mg/dl Creatinine 2.26 mg/dl Est Creatinine Clear Calc Drug Dose 22.0 ml/min Estimated GFR () 24.8 Estimated GFR (Non- 21.4 BUN/Creatinine Ratio 14.6 Random Glucose 171 mg/dl Calcium Level 8.2 mg/dl Bedside Glucose 177 mg/dl Assessment & Plan This is a 67-year-old female with a past medical history of CKD IV, CAD (s/p CABG x 3 in 2007), HTN, DM II and other medical problems listed below who presents with nausea and vomiting 2 weeks and Acute Kidney Injury on CKD stage 4 and hypertensive urgency ACUTE RENAL FAILURE ON CKD 4 LIKELY PRE-RENAL ETIOLOGY history of nausea/vomiting x 2 week prior to admission baseline crea 2 Presented with Cr of 3.7 -- Nephro consulted Dr. Lucero IV fluids given crea improved gradually to 2.2 -- usual Lasix resumed monitor crea on follow up HYPERTENSIVE URGENCY UNCONTROLLED HYPERTENSION -- systolic BP up to 190s -- BP medications adjusted Metoprolol changed Carvedilol 12.5mg BID Amlodipine 10mg daily , Hydralazine 75mg TID added -- Lasix resumed also given Clonidine BID -- BP improved to systolic 120s -- discharge plan: Carvedilol 12.5mg BID Amlodipine 10mg daily Hydralazine 75mg TID Lasix 40mg daily -- monitor BP as outpatient -- work up: Renal US negative for Renal Artery stenosis metanephrine level: pending Episode of Syncope went to the bathroom, found on the floor obtunded initially code purple was called and later stroke alert was called but cancelled as patient became alert and conversing while getting ct scan Ct head unremarkable ammonia level unremarkable eeg and mri head unremarkable -- Neurology consulted no further work up at this time Abdominal pain ct abd/pelvis on presentation unremarkable consulted GI as having persistent abdominal pain likely from History of Hernia Repair? resolved UTI: Abd/pelvis CT with mild circumferential bladder wall thickening could suggest infectious cystitis received Rocephin and Cefepime Headache resolved CAD (s/p CABG x 3 in 2007): asymptomatic EKG: no change DM II: Improved since weight loss hba1c 7.9 outpatient follow up Mood disorder: on sertraline Dispo: d/c home with home health services ff up with PCP on Sunday Current Inpatient Medications: Current Inpatient Medications Medications (Trade) Dose Ordered Sig/Millie Route Start Time Stop Time Status Last Admin Dose Admin Acetaminophen (Tylenol Tab) 650 mg Q4H PRN PO 07/02/17 19:45 08/01/17 19:44 07/10/17 23:30 650 MG Ondansetron HCl (Zofran Inj) 4 mg Q6H PRN IV 07/02/17 19:45 08/01/17 19:44 07/10/17 18:20 4 MG Albuterol (Ventolin Hfa Inhaler) 2 puffs Q6 PRN INH 07/02/17 20:15 08/01/17 20:14 Mirtazapine (Remeron Tab) 30 mg HS PO 07/02/17 21:00 08/01/17 20:59 07/10/17 20:52 30 MG Montelukast Sodium (Singulair Tab) 10 mg HS PO 07/02/17 21:00 08/01/17 20:59 07/10/17 20:52 10 MG Nitroglycerin (Nitrostat Tab) 0.4 mg PRN UT 07/02/17 20:15 08/01/17 20:14 Sertraline HCl (Zoloft Tab) 150 mg DAILY PO 07/03/17 09:00 08/02/17 08:59 07/11/17 08:09 150 MG Insulin Aspart (novoLOG ASPART) SLIDING SCALE If C... ACHS SC 07/02/17 21:00 08/01/17 20:59 07/10/17 20:58 1 UNITS Glucose (Glucose 40% Gel) 15-30 GRAMS 15 GRAMS... UD PRN PO 07/02/17 20:30 08/01/17 20:29 Glucose (Glucose Chew Tab) 4-8 Tablets 4 Tabl... UD PRN PO 07/02/17 20:30 08/01/17 20:29 Dextrose (Dextrose 50% 50ML Syringe) 25-50ML OF 50% DW IV FOR... UD PRN IV 07/02/17 20:30 08/01/17 20:29 Glucagon (Glucagon Inj) 1 mg UD PRN SQ 07/02/17 20:30 08/01/17 20:29 Zolpidem Tartrate (Ambien Tab) 5 mg HS PRN PO 07/02/17 22:45 08/01/17 22:44 Future hold 07/03/17 00:32 5 MG Morphine Sulfate (MoRPHine SULFATE INJ) 2 mg Q2H PRN IV 07/03/17 10:00 07/17/17 09:59 07/03/17 23:09 2 MG Magnesium Oxide (Mag-Ox Tab) 400 mg HS PO 07/03/17 21:00 08/02/17 20:59 07/10/17 20:52 400 MG Amlodipine Besylate (Norvasc Tab) 10 mg DAILY PO 07/05/17 09:00 08/04/17 08:59 07/11/17 08:09 10 MG Clonazepam (Klonopin Tab) 0.5 mg HS PO 07/05/17 21:00 08/04/17 20:59 Future Hold 07/10/17 20:50 0.5 MG Suvorexant (Belsomra) 10 mg HS PO 07/05/17 21:00 08/04/17 20:59 07/07/17 20:47 10 MG Aspirin (Ecotrin Tab) 81 mg DAILY PO 07/06/17 09:00 08/05/17 08:59 07/11/17 08:10 81 MG Clopidogrel Bisulfate (plAVix TAB) 75 mg DAILY PO 07/06/17 09:00 08/05/17 08:59 07/11/17 08:10 75 MG Cyclobenzaprine HCl (Flexeril Tab) 5 mg TID PRN PO 07/05/17 17:15 08/04/17 17:14 07/07/17 21:59 5 MG Fluticasone Propionate (Flonase Nasal [place]) 2 sprays DAILY DENIZ 07/06/17 09:00 08/05/17 08:59 07/11/17 08:10 2 SPRAYS Levothyroxine Sodium (Synthroid Tab) 25 mcg DAILYBB PO 07/06/17 06:30 08/05/17 06:29 07/11/17 07:01 25 MCG Hydralazine HCl (HydrALAZINE INJ) 10 mg Q6H PRN IV. 07/05/17 18:30 08/04/17 18:29 07/10/17 11:21 10 MG Fluticasone/ Vilanterol (Breo Ellipta 100-25 Mcg/Inh) 1 puffs DAILY INH 07/08/17 09:00 08/07/17 08:59 07/11/17 08:11 1 PUFFS Hydralazine HCl (Apresoline Tab) 75 mg TID PO 07/08/17 14:00 08/02/17 13:59 07/11/17 08:10 75 MG Carvedilol (Coreg Tab) 12.5 mg BID PO 07/08/17 21:00 08/07/17 20:59 07/11/17 08:10 12.5 MG Furosemide (Lasix Tab) 40 mg QAM PO 07/09/17 09:00 08/08/17 08:59 07/11/17 08:10 40 MG Lorazepam (Ativan Tab) 0.5 mg BID PRN PO 07/10/17 13:00 08/09/17 12:59 07/10/17 21:52 0.5 MG Clonidine HCl (Catapres Tab) 0.1 mg BID PO 07/10/17 21:00 08/09/17 20:59 07/11/17 08:09 0.1 MG
[2017-07-11] MEDS ORDERED: NRV5 PO (11:06)
[2017-07-11] MEDS ORDERED: APR25 PO (11:06)
[2017-07-11] MEDS ORDERED: CRG125 PO (11:06)
--- NOTE | 2017-07-11 11:12 | Discharge Instructions ---
Discharge Instructions Date of Service Jul 11, 2017. Admission Reason for Admission: Acute On Chronic Renal Failure, Dehydration, Htn Discharge Discharge Diagnosis / Problem: ACUTE RENAL FAILURE, UNCONTROLLED HYPERTENSION Discharge Goals Goal(s): Diagnostic testing, Therapeutic intervention Activity Recommendations Activity Limitations: as noted below (NO HEAVY EXERTION UNTIL RE-EVALUATED BY PRIMARY CARE PHYSICIAN) Lifting Limitations: until after follow-up appointment Exercise/Sports Limitations: until after follow-up appointment Driving or Machine Use: NO DRIVING UNTIL RE-EVALUATED BY PRIMARY CARE PHYSICIAN . Instructions / Follow-Up Instructions / Follow-Up PLEASE REVIEW YOUR NEW MEDICATION LIST AND FOLLOW INSTRUCTIONS CAREFULLY. CALL YOUR PRIMARY CARE PHYSICIAN OR RETURN TO ER IMMEDIATELY IF WITH RECURRENCE OF SYMPTOMS, DIZZINESS, WEAKNESS, HEADACHE, CHEST PAIN, SHORTNESS OF BREATH. FOLLOW UP WITH DR. LAY (ASSOCIATE OF DR. SHETTY) ON Sunday07/13/17 AT 9: 35AM. Current Hospital Diet Patient's current hospital diet: Low Sodium Diet (2gm Na), Diabetes Type 2 Diet Discharge Diet Recommended Diet: AHA Diet (Heart Healthy), Diabetes Type 2 Diet Pending Studies Studies pending at discharge: yes List of pending studies: REPEAT BLOODWORK C/O PRIMARY CARE PHYSICIAN Laboratory Results Hemoglobin A1c Test 07/03/17 05:22 Range/Units Estimated Average Glucose 180 mg/dl Hemoglobin A1c 7.9 H 4.5-5.6 % Lipid Panel Test 07/04/17 05:50 Range/Units Triglycerides Level 177 H 0-150 mg/dl Cholesterol Level 257 H 0-200 mg/dl HDL Cholesterol 52 mg/dl Cholesterol/HDL Ratio 4.9 LDL Cholesterol, Calculated 170 mg/dl Medical Emergencies . Who to Call and When: Medical Emergencies: If at any time you feel your situation is an emergency, please call 911 immediately. . Non-Emergent Contact Non-Emergency issues call your: Primary Care Provider Call Non-Emergent contact if: you have a fever, your pain is not controlled, your pain is worsening, you have any medication questions . . "Provider Documentation" section prepared by Clifton Marie. .
--- NOTE | 2017-07-11 11:17 | Discharge Summary ---
Discharge Summary Date of Service Jul 11, 2017. Discharge Summary Admission Date: Jul 02, 2017 at 19:38 Discharge Date: Jul 11, 2017 Discharge Disposition: Home with services Principal Diagnosis: ACUTE RENAL FAILURE ON CKD 4 LIKELY PRE-RENAL ETIOLOGY Secondary Diagnoses/Problems: Please refer to hospital course below. Procedures: ABD/PELVIS WITHOUT FOR STONE CLINICAL HISTORY: 67 years-old Female presenting with diffuse abdominal pain, vomiting, no BM x 1 wk. TECHNIQUE: Multidetector CT of the abdomen and pelvis was performed without the use of intravenous contrast. IV contrast: None. A dose lowering technique was used consistent with the principles of ALARA (as low as reasonably achievable). COMPARISON: 05/09/2015. CT DOSE (mGy.cm): The estimated cumulative dose is 825.30 mGy.cm. FINDINGS: Member Service Specialist topogram: Cholecystectomy clips. Lung bases: Lungs and pleural spaces clear. Normal heart size. Coronary artery calcification. No pericardial or pleural effusion. Liver: Normal morphology. Normal density. Biliary: Mild biliary ductal prominence likely a reservoir effect in the post cholecystectomy state. Gallbladder surgically absent. Pancreas: Moderate parenchymal atrophy. Spleen: Normal noncontrast appearance. Adrenal glands: Normal. Kidneys and ureters: Normal. No hydronephrosis. Bladder: Mild circumferential bladder wall thickening. Pelvic organs: Uterus surgically absent. No adnexal masses. Bowel: Normal. No bowel obstruction. Duodenal diverticulum noted at the level of the pancreatic head. Peritoneal cavity: No free fluid or intraperitoneal gas. Lymph nodes: No gross lymphadenopathy allowing for noncontrast technique. Vasculature: Atherosclerosis of the normal caliber abdominal aorta. Abdominal wall: Extensive postsurgical changes of the ventral abdomen with diastases of the rectus abdominis and ventral hernia repair with prosthetic mesh in place. No associated fluid or inflammatory change. No significant recurrent hernia although abdominal wall laxity is noted. Mild body wall edema. Musculoskeletal: Benign hemangioma noted in the L2 vertebral body. Minimal degenerative changes of the spine. IMPRESSION: 1. Mild circumferential bladder wall thickening could suggest infectious cystitis. Correlate with urinalysis. No other evidence of acute intra-abdominal pathology. 2. Postsurgical changes of ventral hernia repair without evidence of complication. Electronically signed by: Jaren Jacome M.D. 07/02/2017 6:10 PM BRAIN W/O FOR SEIZURE CLINICAL HISTORY: Seizure versus CVA mental status change TECHNIQUE: Multiaxial MRI acquisition COMPARISON STUDY: CT brain same date FINDINGS: Diffusion images are negative for an acute ischemic insult. There are findings of mild chronic small vessel change in the periventricular and deep white matter regions. The ventricular system is midline. The sella and parasellar regions are unremarkable. The internal auditory canals are symmetric. IMPRESSION: 1. Negative MRI of the brain for age. 2. Mild chronic small vessel change 3. No evidence for an acute ischemic insult. CHEST ONE VIEW PORTABLE CLINICAL HISTORY: L rib pain/ fall trauma. Pain. COMPARISON STUDY: 04/24/2016 FINDINGS: Cardiomegaly. Prior median sternotomy. Prominent pulmonary vasculature. IMPRESSION: Congestive heart failure CT SCAN OF THE BRAIN WITHOUT IV CONTRAST CLINICAL HISTORY: Right hand numbness. COMPARISON STUDY: CT of the brain dated 07/03/2017. TECHNIQUE: Unenhanced axial CT scan of the brain is performed from the vertex to the skull base. A dose lowering technique was utilized adhering to the principles of ALARA. CT DOSE: 537.48 mGy.cm FINDINGS: Brain parenchyma: There are age-related involutional changes noting mild to moderate patchy subcortical and periventricular microangiopathic change. There is no hemorrhage, mass effect, or evidence of acute territorial ischemia by CT criteria. Pal-white matter is preserved. No extra-axial fluid collection is seen. Ventricles, sulci, cisterns: Prominent secondary to involutional change. Intracranial vasculature: There is atherosclerotic calcification of the cavernous carotid arteries. Calvarium: Unremarkable. Sinuses and mastoids: The visualized paranasal sinuses are clear. The mastoid air cells are well pneumatized. Orbits: The bony orbits are grossly intact. There are bilateral ocular lens implants. IMPRESSION: There is no hemorrhage, mass effect, or evidence of acute territorial ischemia by CT criteria. DUPLEX RENAL ARTERY ULTRASOUND CLINICAL HISTORY: hypertension, screen for renal artery stenosis COMPARISON STUDY: Renal ultrasound 05/29/2016. FINDINGS: The right kidney measures 10.5 centers in the left kidney measures 12.0 cm. Stable 9 mm cyst within the lower pole the right kidney. No hydronephrosis. Peak systolic velocity within the right renal artery was 63 cm/s and the left renal artery was 124 cm/s. The peak systolic velocity within the aorta was 138 cm/s. Normal corticomedullary differentiation and cortical thickness. Bilateral renal veins are patent. IMPRESSION: No evidence for renal artery stenosis. Electronically signed by: Jose Steinberg M.D. 07/09/2017 11:28 AM Consultations: Nephrology, Neurology, GI Pending Studies/Follow-Up: Monitor BP and titrate medications accordingly; Please refer to hospital course below. Medication Reconciliation New Medications: Amlodipine Besylate (Amlodipine Besylate) 5 Mg Tab 10 MG PO DAILY for 30 Days, #60 TAB 1 Refill Carvedilol (Carvedilol) 12.5 Mg Tab 12.5 MG PO BID for 30 Days, #60 TAB 1 Refill Hydralazine Hcl (Apresoline) 25 Mg Tab 75 MG PO TID for 30 Days, #270 TAB 1 Refill Continued Medications: Albuterol Hfa (Ventolin Hfa) 200 Puffs/75151 Mcg Aers 2 PUFFS INH Q6 PRN for SOB/Wheezing Aspirin (Aspirin EC Low Dose) 81 Mg Ectab 81 MG PO DAILY, #30 1 Refill Clonazepam (Klonopin) 0.5 Mg Tab 1 TAB PO HS for 30 Days, TAB Clopidogrel Bisulfate (Plavix) 75 Mg Tab 75 MG PO DAILY, #30 TAB 1 Refill Cyclobenzaprine Hcl (Flexeril) 5 Mg Tab 5 MG PO TID PRN for muscle spasms, #30 TAB PRN Fluticasone Furoate-Vilanterol (Breo Ellipta) 1 Inh Inh 1 PUFF INH DAILY, #1 Fluticasone Propionate (Nasal) (Flonase Allergy Relief) 50 Mcg/Act Spr 2 SPRAYS DENIZ DAILY, #1 Furosemide (Furosemide) 40 Mg Tab 40 MG PO DAILY Levothyroxine Sodium (Levothyroxine Sodium) 25 Mcg Tab 1 TAB PO DAILY for 30 Days, #30 TAB 1 Refill Mirtazapine (Remeron) 30 Mg Tab 30 MG PO HS Montelukast Sodium (Montelukast Sodium) 10 Mg Tab 1 TAB PO HS for 90 Days, TAB 3 Refills Nitroglycerin (Nitrostat) 0.4 Mg Sub 0.4 MG UT PRN, BTL Potassium Gluconate (Potassium Gluconate) 595 Mg Tab 2 TABS PO QPM Sertraline HCl (Sertraline HCl) 100 Mg Tab 150 MG PO DAILY Sitagliptin Phosphate (Januvia) 50 Mg Tab 50 MG PO DAILY Suvorexant (Belsomra) 10 Mg Tab 10 MG PO HS, #30 Discontinued Medications: Amlodipine Besylate (Amlodipine Besylate) 5 Mg Tab 5 MG PO DAILY Lisinopril (Zestril) 40 Mg Tab 40 MG PO DAILY, #30 TAB Metoprolol Tartrate (Lopressor) (Lopressor) 25 Mg Tab 25 MG PO BID Admission Information HPI (per Admitting provider): This is a 67-year-old female with a past medical history of CKD IV, CAD (s/p CABG x 3 in 2007), HTN, DM II, diastolic CHF and other medical problems listed below who presents with nausea and vomiting 2 weeks. 3 weeks ago, patient had the flu and was experiencing the diarrhea in addition to myalgias and body aches. Completed a Z pack and a course of probiotics. Over the course of the last 2 weeks, patient has been experiencing worsening nausea, vomiting and decreased appetite/fluid intake. Has been unable to keep medications down. Over the last week, patient has had difficulty making urine and suprapubic pain. Has felt easily distracted and shaky. Thinks that her blood sugar is low but has not checked it at home. Endorses a frontal headache currently that feels similar to previous migraines. Was getting dressed to come to the ED today when she lost her balance and fell forward onto her chest. Right arm and right leg with some soreness, bruising. Denies any LOC or head trauma. Denies any fever, chills, lightheadedness, visual changes, chest pain, shortness of breath, LE swelling. History of a reported 300 pound weight loss and panniculectomy at [facility] in 2005. Has a reported history of congestive heart failure, for which she takes 40 mg of Lasix daily. was recently diagnosed with cancer and patient admits increased stress and feeling distracted from managing her own health. Follows with Dr. Lucero for nephrology and Dr. Neda Shetty for PCP. Is a smoker. Physical Exam (per Admitting): General Appearance: no apparent distress, + pertinent finding (chronically ill appearing ) Head: normocephalic, atraumatic Eyes: normal inspection, PERRL, sclerae normal ENT: normal ENT inspection, hearing grossly normal, pharynx normal (very dry mucous membranes, crusting around mouth) Neck: supple, thyroid normal, trachea midline Respiratory/Chest: chest non-tender, lungs clear, normal breath sounds, no respiratory distress, no accessory muscle use Cardiovascular: regular rate, rhythm, no murmur, normal peripheral pulses Abdomen/GI: non tender, soft, no organomegaly Back: normal inspection Extremities/Musculoskelatal: normal inspection, no calf tenderness, no pedal edema, + pertinent finding (L foot prosthetic ) Neurologic/Psych: no motor/sensory deficits, alert, oriented x 3, + pertinent finding (anxious) Skin: normal color, warm/dry, + pertinent finding (L forearm hand with petechiae, L thigh with ecchymosis ) Hospital Course This is a 67-year-old female with a past medical history of CKD IV, CAD (s/p CABG x 3 in 2007), HTN, DM II and other medical problems listed below who presents with nausea and vomiting 2 weeks and Acute Kidney Injury on CKD stage 4 and hypertensive urgency ACUTE RENAL FAILURE ON CKD 4 LIKELY PRE-RENAL ETIOLOGY history of nausea/vomiting x 2 week prior to admission baseline crea 2 Presented with Cr of 3.7 -- Nephro consulted Dr. Lucero IV fluids given crea improved gradually to 2.2 -- usual Lasix resumed monitor crea on follow up HYPERTENSIVE URGENCY UNCONTROLLED HYPERTENSION -- had to be admitted to the ICU systolic BP up to 200s -- BP medications adjusted Metoprolol changed Carvedilol 12.5mg BID Amlodipine increased to 10mg daily , Hydralazine 75mg TID added -- Lasix resumed also given Clonidine BID -- BP improved to systolic 120s -- discharge plan: Carvedilol 12.5mg BID Amlodipine 10mg daily Hydralazine 75mg TID Lasix 40mg daily -- monitor BP as outpatient -- work up: Renal US negative for Renal Artery stenosis metanephrine level: pending Episode of Syncope happend while admitted went to the bathroom, found on the floor obtunded initially code purple was called and later stroke alert was called but cancelled as patient became alert and conversing while getting ct scan Ct head unremarkable ammonia level unremarkable eeg and mri head unremarkable -- Neurology consulted no further work up at this time Abdominal pain ct abd/pelvis on presentation unremarkable consulted GI as having persistent abdominal pain likely from History of Hernia Repair? resolved UTI: Abd/pelvis CT with mild circumferential bladder wall thickening could suggest infectious cystitis received Rocephin and Cefepime Headache resolved CAD (s/p CABG x 3 in 2007): asymptomatic EKG: no change DM II: Improved since weight loss hba1c 7.9 outpatient follow up Mood disorder: on sertraline Dispo: d/c home with home health services ff up with PCP on Sunday07/13/17 Total time spent on discharge = 40 minutes This includes examination of the patient, discharge planning, medication reconciliation, and communication with other providers. Discharge Instructions Discharge Instructions Date of Service Jul 11, 2017. Admission Reason for Admission: Acute On Chronic Renal Failure, Dehydration, Htn Discharge Discharge Diagnosis / Problem: ACUTE RENAL FAILURE, UNCONTROLLED HYPERTENSION Discharge Goals Goal(s): Diagnostic testing, Therapeutic intervention Activity Recommendations Activity Limitations: as noted below (NO HEAVY EXERTION UNTIL RE-EVALUATED BY PRIMARY CARE PHYSICIAN) Lifting Limitations: until after follow-up appointment Exercise/Sports Limitations: until after follow-up appointment Driving or Machine Use: NO DRIVING UNTIL RE-EVALUATED BY PRIMARY CARE PHYSICIAN . Instructions / Follow-Up Instructions / Follow-Up PLEASE REVIEW YOUR NEW MEDICATION LIST AND FOLLOW INSTRUCTIONS CAREFULLY. CALL YOUR PRIMARY CARE PHYSICIAN OR RETURN TO ER IMMEDIATELY IF WITH RECURRENCE OF SYMPTOMS, DIZZINESS, WEAKNESS, HEADACHE, CHEST PAIN, SHORTNESS OF BREATH. FOLLOW UP WITH DR. LAY (ASSOCIATE OF DR. SHETTY) ON Sunday07/13/17 AT 9: 35AM. Current Hospital Diet Patient's current hospital diet: Low Sodium Diet (2gm Na), Diabetes Type 2 Diet Discharge Diet Recommended Diet: AHA Diet (Heart Healthy), Diabetes Type 2 Diet Pending Studies Studies pending at discharge: yes List of pending studies: REPEAT BLOODWORK C/O PRIMARY CARE PHYSICIAN Laboratory Results Hemoglobin A1c Test 07/03/17 05:22 Range/Units Estimated Average Glucose 180 mg/dl Hemoglobin A1c 7.9 H 4.5-5.6 % Lipid Panel Test 07/04/17 05:50 Range/Units Triglycerides Level 177 H 0-150 mg/dl Cholesterol Level 257 H 0-200 mg/dl HDL Cholesterol 52 mg/dl Cholesterol/HDL Ratio 4.9 LDL Cholesterol, Calculated 170 mg/dl Medical Emergencies . Who to Call and When: Medical Emergencies: If at any time you feel your situation is an emergency, please call 911 immediately. . Non-Emergent Contact Non-Emergency issues call your: Primary Care Provider Call Non-Emergent contact if: you have a fever, your pain is not controlled, your pain is worsening, you have any medication questions . . "Provider Documentation" section prepared by Clifton Marie. .
== END 2017-07-11 12:27 | disposition home health service (06) | DRG 682 ==
LOC: C.EDB 14:54 → C.2T 19:38 → ENRESERV 19:58 → C.MSICU 07-03 07:31 → ENRESERV 07-04 16:54 → C.MED 07-04 18:40
PROVIDERS: ADMIT Family Medicine; ATTEND Internal Medicine
DX: N17.0 Acute kidney failure with tubular necrosis (principal); G93.40 Encephalopathy, unspecified; I13.0 Hypertensive heart and chronic kidney disease with heart failure and stage 1 through stage 4 chronic kidney disease, or unspecified chronic kidney disease; I50.32 Chronic diastolic (congestive) heart failure; I16.1 Hypertensive emergency; R56.9 Unspecified convulsions; F41.9 Anxiety disorder, unspecified; I25.10 Atherosclerotic heart disease of native coronary artery without angina pectoris; N18.4 Chronic kidney disease, stage 4 (severe); J44.9 Chronic obstructive pulmonary disease, unspecified; F32.9 Major depressive disorder, single episode, unspecified; E11.22 Type 2 diabetes mellitus with diabetic chronic kidney disease; K21.9 Gastro-esophageal reflux disease without esophagitis; E03.9 Hypothyroidism, unspecified; G47.00 Insomnia, unspecified; F17.200 Nicotine dependence, unspecified, uncomplicated; E86.0 Dehydration; N30.90 Cystitis, unspecified without hematuria; R51 Headache; Z88.0 Allergy status to penicillin; Z86.73 Personal history of transient ischemic attack (TIA), and cerebral infarction without residual deficits; Z91.018 Allergy to other foods; Z91.030 Bee allergy status; Z95.1 Presence of aortocoronary bypass graft; Z80.9 Family history of malignant neoplasm, unspecified; Z83.3 Family history of diabetes mellitus; Z82.49 Family history of ischemic heart disease and other diseases of the circulatory system; Z84.1 Family history of disorders of kidney and ureter

== ENCOUNTER 2017-07-18 09:42 | Observation (INO) | payer OTHER ==
[~2017-07-18] VITALS: Ht 165.1 cm; Wt 76.1 kg
[~2017-07-18 09:42] MED LIST changes: -ALBU18002 INH; +APR25 PO; -ASPCH81X PO; +ASPI-320 PO; +CLON0.5T3 PO; -CLOP1TAB15 PO; +CLOP1TAB5 PO; +CRG125 PO; -EPP3/2 IM; -FLUT0.15; +FLUT0.15 NAE; -INSU3INJ3 SUBCON; -IRON INFUSIONS IV; +LEVO25TA5 PO; -LISI20TA3 PO; -LPR25 PO; +LSX40 PO; +MIRT30TA3 PO; +NRV5 PO; -NVLGI/PEN SC; +POTA1TAB PO; -SERT50TA PO; +SITA50TA PO; -SITA50TA3 PO; +SUVO1TAB2 PO; +VNTHFA/IN INH; +ZLF/100 PO
[2017-07-18] MEDS ORDERED: KLN5X PO (10:31)
[2017-07-18] MEDS ORDERED: ASPI81TA28 PO (10:31)
[2017-07-18] MEDS ORDERED: CARV12.52 PO (10:31)
[2017-07-18] MEDS ORDERED: FRS/40 PO (10:31)
[2017-07-18] MEDS ORDERED: FLUT0.15 NAE (10:31)
[2017-07-18] MEDS ORDERED: NRV/10 PO (10:31)
[2017-07-18] MEDS ORDERED: LEVO25TA PO (10:31)
[2017-07-18] MEDS ORDERED: CLOP1TAB15 PO (10:31)
[2017-07-18] MEDS ORDERED: FLUT1INH INH (10:31)
[2017-07-18] MEDS ORDERED: HYDR-4716 PO (10:31)
[2017-07-18] MEDS ORDERED: SUVO1TAB3 PO (10:32)
[2017-07-18 11:43] LABS: CALCIUM 8.3 mg/dl (8.5-10.1); CREATININE 3.38 mg/dl (0.60-1.20); POTASSIUM 6.7 mmol/L (3.5-5.1)
[2017-07-18] MEDS ORDERED: INSULIN HUMAN REGULAR PER UNIT 5 UNITS in SYRINGE 9.9 ML IV STA (12:14)
[2017-07-18] MEDS ORDERED: SODIUM POLYST. SULF SUSP 15G/60ML PO STA (12:14)
[2017-07-18] MEDS ORDERED: DEXTROSE 50% 50 ML SYR IV STA (12:14)
[2017-07-18] MEDS ORDERED: CALCIUM GLUCONATE 10% 1,000 MG in SODIUM CHLORIDE 0.9% 50ML 50 ML IV STA (12:14)
[2017-07-18] MEDS ORDERED: ALBUTEROL 0.083% NEBU SOLN 3 ML VIAL INH STA (12:40)
[2017-07-18] MEDS ORDERED: SODIUM BICARB 8.4% INJ 50 MEQ/50 ML SYR IV STA (12:40)
[2017-07-18] MEDS ORDERED: NITROGLYCERIN 0.4 MG SL PER TAB CHARGE UT PRN (12:45)
[2017-07-18] MEDS ORDERED: ALBUTEROL HFA 8 GM INHALER INH PRN (12:45)
[2017-07-18] MEDS ORDERED: ONDANSETRON INJ 2 MG/ML 2 ML VIAL IV PRN (12:45)
[2017-07-18] MEDS ORDERED: IV FLUIDS COMPLETED PRN (13:00)
--- NOTE | 2017-07-18 13:02 | History and Physical ---
History & Physical Date & Time of Service: Jul 18, 2017 at 12:47 Chief Complaint: Hyperkalemia-sent in by PCP Primary Care Physician: Ac Mcmanus D.O. History of Present Illness Source: patient She is a 46-year-old white female with significant past medical history of CKD stage IV diabetes type 2 hypertension and other medical problems as mentioned below apparently was seen in the clinic yesterday as noted to have high potassium and she was advised to come to the hospital. She decided to come this morning and she was noted to have a potassium of 6.7 in the ER and creatinine of 3.38, she remained totally asymptomatic. She denies to have any chest pain shortness of breath palpitation, no abdominal pain nausea and/or vomiting, no problem with urine in the bowel habit, and denies to any numbness tingling in the extremities as well. She does not have any fever chills or riders any cough or any shortness of breath. She received calcium gluconate, insulin and dextrose IV, IV sodium bicarb, nebulized treatment with albuterol, and Kayexalate by the ER physician and was advised for admission to telemetry unit. Her EKG did show peaked T-wave. Past Medical/Surgical History Medical Problems: (1) Acute on chronic renal failure (2) HEBERT (acute kidney injury) (3) Anxiety (4) CAD (coronary artery disease) (5) Chronic renal failure, stage 4 (severe) (6) CKD (chronic kidney disease), stage III (7) COPD (chronic obstructive pulmonary disease) (8) CVA (cerebral vascular accident) (9) Dehydration (10) Depression (11) Diastolic CHF (12) DM2 (diabetes mellitus, type 2) (13) GERD (gastroesophageal reflux disease) (14) HTN (hypertension) (15) Hyperkalemia (16) Hypertension (17) Hypothyroidism (18) Insomnia Surgical Problems: (1) H/O section (2) H/O colonoscopy (3) H/O esophagogastroduodenoscopy (4) S/P CABG x 3 (5) S/P hernia repair (6) S/P surgical manipulation of ankle joint (7) S/P JOEL-BSO Family History FH: cancer FH: diabetes mellitus BROTHER FH: heart disease BROTHER Kidney disease MOTHER Social History Smoking Status: Current Every Day Smoker (Quit las week) Smokeless Tobacco Use: No Alcohol Use: none Drug Use: none Marital Status: Housing status: lives with family Occupational Status: disabled Immunizations History of Influenza Vaccine: Yes Influenza Vaccine Date: Dec 19, 2011 History of Tetanus Vaccine?: 2010 Tetanus Immunization Date: Nov 01, 2003 History of Pneumococcal: Yes Pneumococcal Date: May 20, 2003 History of Hepatitis B Vaccine: Yes Allergies Coded Allergies: Tomato (Verified Allergy, Severe, Hives, 11/14/16) Hives BEE STING (Verified Allergy, Mild, MOUTH SWELLING, 11/14/16) Penicillins (Verified Allergy, Unknown, RASH, 11/14/16) Prednisone (Verified Allergy, Unknown, SWELLING OG HANDS, ITCHING, RASH, ) INFO FROM [facility] [facility] Rosuvastatin (Verified Allergy, Unknown, SEVERE H/A, 11/14/16) Statins (Verified Adverse Reaction, Unknown, EFFECTED LIVER STUDIES, ) Home Medications Scheduled Amlodipine Besylate (Amlodipine Besylate), 10 MG PO DAILY Aspirin (Aspirin Ec), 81 MG PO DAILY Carvedilol (Coreg), 12.5 MG PO BID Clonazepam (Clonazepam), 0.5 MG PO DAILY Clopidogrel (Plavix), 75 MG PO DAILY Fluticasone Furoate-Vilanterol (Breo Ellipta), 1 PUFF INH DAILY Fluticasone Propionate (Nasal) (Flonase Allergy Relief), 2 SPRAY DENIZ DAILY Furosemide (Lasix), 40 MG PO DAILY Hydralazine HCl (Hydralazine HCl), 75 MG PO TID Levothyroxine Sodium (Synthroid), 25 MCG PO DAILY Montelukast Sodium (Montelukast Sodium), 1 TAB PO HS Nitroglycerin (Nitrostat), 0.4 MG UT PRN Potassium Gluconate (Potassium Gluconate), 2 TABS PO QPM Sertraline HCl (Sertraline HCl), 150 MG PO DAILY Sitagliptin Phosphate (Januvia), 50 MG PO DAILY Suvorexant (Belsomra), 15 MG PO HS Scheduled PRN Albuterol Hfa (Ventolin Hfa), 2 PUFFS INH Q6 PRN for SOB/Wheezing Review of Systems Psychiatric: + anxiety Physical Exam Vital Signs Date Time Temp Pulse Resp B/P (MAP) Pulse Ox O2 Delivery O2 Flow Rate FiO2 07/18/17 09:52 36.6 51 18 112/53 96 Room Air General Appearance: no apparent distress Head: normocephalic Eyes: normal inspection ENT: normal ENT inspection Neck: supple Respiratory/Chest: lungs clear, normal breath sounds Cardiovascular: regular rate, rhythm Abdomen/GI: normal bowel sounds, non tender, no organomegaly, normal rectal exam Genitourinary - Female: external genitalia normal Back: normal inspection Extremities/Musculoskelatal: normal inspection Neurologic/Psych: no motor/sensory deficits, alert, normal mood/affect, normal reflexes, oriented x 3 Skin: normal color Lymphatic: no adenopathy Diagnostics Laboratory Results Results Past 24 Hours Test 07/18/17 11:00 Range/Units Sodium Level 133 136-145 mmol/L Potassium Level 6.7 3.5-5.1 mmol/L Chloride Level 101 98-107 mmol/L Carbon Dioxide Level 25 21-32 mmol/L Anion Gap 7.0 3-11 mmol/L Blood Urea Nitrogen 71 7-18 mg/dl Creatinine 3.38 0.60-1.20 mg/dl Est Creatinine Clear Calc Drug Dose 14.1 ml/min Estimated GFR () 15.3 Estimated GFR (Non- 13.2 BUN/Creatinine Ratio 20.9 10-20 Random Glucose 181 70-99 mg/dl Calcium Level 8.3 8.5-10.1 mg/dl EKG EKG showed Peaked T wave with Sinus Manan. Impression Assessment and Plan HYPERKALEMIA: Patient is asymptomatic with a potassium of 6.7, EKG did show peaked T waves and bradycardia of 49 She received intravenous calcium gluconate, sodium bicarb, insulin and dextrose , nebulized albuterol and Kayexalate. Admitted to telemetry for observation and monitoring potassium level. ACUTE AK I on chronic kidney disease: Seems to be prerenal. She was advised to bring plenty of fluids and cautious amount of IV fluid administered as well. Monitor kidney function and if there is no improvement we will get nephrology evaluation. DIABETES type 2 We will put her 1 sliding scale insulin coverage with blood sugar checkup before meals and at bedtime. Depression with anxiety: No acute symptoms, We will continue current medications. Hypertension Seems to be stable at this time. Her medications were changed during last admission, dose will be continued and monitor high blood pressure Hypothyroidism Continue with replacement GI prophylaxis With PPI DVT prophylaxis With Lovenox CODE STATUS: Discussed with the patient and she will be full code In my clinical assessment the beneficially meets criteria for 2 midnights admission. Resuscitation Status VTE Prophylaxis Will order VTE Prophylaxis: Yes
[2017-07-18 13:08] VITALS: O2SAT 96; Ht 165.1 cm; Wt 76.1 kg
[2017-07-18 14:09] VITALS: O2SAT 94
[2017-07-18] MEDS ORDERED: SODIUM BICARB 8.4% INJ 50 MEQ/50 ML SYR IV ONE (15:09)
[2017-07-18] MEDS ORDERED: ALBUTEROL 0.083% NEBU SOLN 3 ML VIAL INH ONE (15:09)
[2017-07-18 16:00] VITALS: BP 152/82; PULSE 60; TEMP 36.5; O2SAT 94
[2017-07-18] MEDS: SODIUM CHLORIDE 0.9% 1000ML 1,000 ML IV SCH (17:01)
[2017-07-18 18:10] LABS: CALCIUM 8.3 mg/dl (8.5-10.1); CREATININE 3.16 mg/dl (0.60-1.20)
[2017-07-18 18:11] LABS: POTASSIUM 5.6 mmol/L (3.5-5.1)
--- NOTE | 2017-07-18 18:25 | EMERGENCY ROOM VISIT NOTE ---
History Report prepared by Nathan: Ash Castellanos Under the Supervision of: Dr. Carloz Davila M.D. First contact with patient: 10:34 Chief Complaint: HYPERTENSION Stated Complaint: HIGH BLOOD PRESSURE, LOSS OF COORDINATION, HEADACH History of Present Illness The patient is a 67 year old female who presents to the Emergency Room after referral from Dr. Mcmanus with concerns over her laboratory work that was taken yesterday. The patient states that she was at Dr. Mcmanus's office yesterday after spraining her left ankle. Laboratory studies were taken on this visit and showed a "high Potassium level," and Dr. Mcmanus was concerned over her kidney function. The patient denies any symptoms, and notes that even her left ankle is feeling better. She denies chest pain, SOB, tachycardia, nausea, vomiting, and diarrhea. Source of History: patient Onset: Yesterday after visit with PCP Position: other (No symptoms) Quality: other (High potassium levels) Associated Symptoms: No chest pain, No SOB, No nausea, No vomiting, No diarrhea Note: Recent Left Ankle Sprain. Review of Systems See HPI for pertinent positives and negatives. A total of ten systems were reviewed and were otherwise negative. Past Medical & Surgical Medical Problems: (1) HEBERT (acute kidney injury) (2) Anxiety (3) CAD (coronary artery disease) (4) Chronic renal failure, stage 4 (severe) (5) CKD (chronic kidney disease), stage III (6) COPD (chronic obstructive pulmonary disease) (7) CVA (cerebral vascular accident) (8) Depression (9) Diastolic CHF (10) DM2 (diabetes mellitus, type 2) (11) GERD (gastroesophageal reflux disease) (12) HTN (hypertension) (13) Hyperkalemia (14) Hypothyroidism (15) Insomnia Surgical Problems: (1) H/O section (2) H/O colonoscopy (3) H/O esophagogastroduodenoscopy (4) S/P CABG x 3 (5) S/P hernia repair (6) S/P surgical manipulation of ankle joint (7) S/P JOEL-BSO Family History FH: cancer FH: diabetes mellitus BROTHER FH: heart disease BROTHER Kidney disease MOTHER Social History Smoking Status: Current Every Day Smoker Alcohol Use: none Drug Use: none Marital Status: Housing Status: lives with family, lives with significant other Occupation Status: disabled Current/Historical Medications Scheduled Amlodipine Besylate (Amlodipine Besylate), 10 MG PO DAILY Aspirin (Aspirin Ec), 81 MG PO DAILY Carvedilol (Coreg), 12.5 MG PO BID Clonazepam (Clonazepam), 0.5 MG PO DAILY Clopidogrel (Plavix), 75 MG PO DAILY Fluticasone Furoate-Vilanterol (Breo Ellipta), 1 PUFF INH DAILY Fluticasone Propionate (Nasal) (Flonase Allergy Relief), 2 SPRAY DENIZ DAILY Furosemide (Lasix), 40 MG PO DAILY Hydralazine HCl (Hydralazine HCl), 75 MG PO TID Levothyroxine Sodium (Synthroid), 25 MCG PO DAILY Montelukast Sodium (Montelukast Sodium), 1 TAB PO HS Nitroglycerin (Nitrostat), 0.4 MG UT PRN Potassium Gluconate (Potassium Gluconate), 2 TABS PO QPM Sertraline HCl (Sertraline HCl), 150 MG PO DAILY Sitagliptin Phosphate (Januvia), 50 MG PO DAILY Suvorexant (Belsomra), 15 MG PO HS Scheduled PRN Albuterol Hfa (Ventolin Hfa), 2 PUFFS INH Q6 PRN for SOB/Wheezing Allergies Coded Allergies: Tomato (Verified Allergy, Severe, Hives, 11/14/16) Hives BEE STING (Verified Allergy, Mild, MOUTH SWELLING, 11/14/16) Penicillins (Verified Allergy, Unknown, RASH, 11/14/16) Prednisone (Verified Allergy, Unknown, SWELLING OG HANDS, ITCHING, RASH, ) [facility] Rosuvastatin (Verified Allergy, Unknown, SEVERE H/A, 11/14/16) Statins (Verified Adverse Reaction, Unknown, EFFECTED LIVER STUDIES, ) Physical Exam Vital Signs Date Time Temp Pulse Resp B/P (MAP) Pulse Ox O2 Delivery O2 Flow Rate FiO2 07/18/17 10:13 109/58 07/18/17 09:52 36.6 51 18 112/53 96 Room Air Physical Exam Physical Exam GENERAL: She is oriented to person, place, and time. She appears well- developed and well-nourished. She does not appear distressed. ____ HENT: Exam performed. Head: Normocephalic and atraumatic. Right Ear: External ear normal. No mastoid tenderness. Left Ear: External ear normal. No mastoid tenderness. Mouth/Throat: The oropharynx is clear and moist. No trismus in the jaw. No dental abscesses or uvula swelling. No oropharyngeal exudate or tonsillar abscesses. ____ EYES: Conjunctivae and EOM are normal. Pupils are equal, round, and reactive to light. Right eye exhibits no discharge. Left eye exhibits no discharge. No scleral icterus. ____ NECK: Normal range of motion. Neck supple. No JVD present. No spinous process tenderness present. No carotid bruit present. No rigidity. No tracheal deviation and normal range of motion present. No Brudzinski's sign and no Kernig 's sign noted. ____ CV: Normal rate, regular rhythm, normal heart sounds and intact distal pulses. There is no peripheral edema. Palpable radial pulses bue. ____ PULM/CHEST: Effort normal and breath sounds normal. No respiratory distress. No stridor. She has no wheezes. She has no rales. Chest Wall: She exhibits no tenderness. ____ ABD: The abdomen is soft. Bowel sounds are normal. She has no distension. No mass is present. There is no tenderness. There is no rebound, no guarding, no Onofre's sign and no tenderness at McBurney's point. Rovsig negative MUSC/SKEL: Normal range of motion. There is no peripheral edema, tenderness or deformity. LYMPH: No cervical adenopathy. ____ NEURO: She is alert and oriented to person, place, and time. She has normal strength. No cranial nerve deficit or sensory deficit. Coordination and gait normal. GCS eye subscore is 4. GCS verbal subscore is 5. GCS motor subscore is 6. Cerebellar tests wnl. ____ SKIN: Skin is warm and dry. She is not diaphoretic. ____ PSYCH: Shw has a normal mood and affect. Her behavior is normal. Judgment and thought content normal. ____ Medical Decision & Procedures Laboratory Results Laboratory results reviewed by me Medications Administered Medications (Trade) Dose Ordered Sig/Millie Route Start Time Stop Time Status Last Admin Dose Admin Calcium Gluconate 1000 mg/Sodium Chloride 60 ml @ 240 mls/hr NOW STAT IV 07/18/17 12:14 07/18/17 12:28 DC 07/18/17 12:53 240 MLS/HR Insulin Human Regular 5 units/ Syringe 9.95 ml @ 20 mls/min NOW STAT IV 07/18/17 12:14 07/18/17 12:16 DC 07/18/17 12:53 20 MLS/MIN Dextrose (Dextrose 50% 50ML Syringe) 50 ml NOW STAT IV 07/18/17 12:14 07/18/17 12:16 DC 07/18/17 12:54 50 ML Sodium Polystyrene Sulfonate (Kayexalate Susp) 15 gm NOW STAT PO 07/18/17 12:14 07/18/17 12:16 DC 07/18/17 12:52 15 GM Sodium Chloride 1,000 ml @ 125 mls/hr Q8H IV 07/18/17 12:33 07/19/17 12:32 07/18/17 17:01 125 MLS/HR ECG Per My Interpretation Indication: other (Abnormal Labs) Rate (beats per minute): 49 Rhythm: sinus rhythm Findings: other (TN, QRS, QTC WNL, no DAKOTAH/STD, Peaked T-waves in leads 2/3, AvF , V3 and V4) ED Course 1036: The patient was evaluated in room A10. A complete history and physical exam was performed. 1214: Vital signs stable. EKG showed sinus rhythm and had peak T waves. Potassium elevated at 6.7 and creatinine of 3.38. Patient's creatinine is elevated from her baseline. Ordered Sodium Polystyrene Sulfonate 15 gm PO, Dextrose 50 mL IV, Insulin Human 9.95 mL @ 20 mL/min IV, Calcium Gluconate 1000 mg/Sodium Chloride 60 mL @ 240 mL/hr IV. I discussed the case with Dr. [facility] Hospital[facility]. He will evaluate the patient for further treatment. Medical Decision Vital signs stable. EKG showed sinus rhythm and had peak T waves. Potassium elevated at 6.7 and creatinine of 3.38. Patient's creatinine is elevated from her baseline. Ordered Sodium Polystyrene Sulfonate 15 gm PO, Dextrose 50 mL IV , Insulin Human 9.95 mL @ 20 mL/min IV, Calcium Gluconate 1000 mg/Sodium Chloride 60 mL @ 240 mL/hr IV. I discussed the case with Dr. Gaetano Mcgregor. He will evaluate the patient for further treatment. Medication Reconcilliation Current Medication List: was personally reviewed by me Blood Pressure Screening Patient's blood pressure: Normal blood pressure Consults Time Called: 1216 Consulting Physician: Dr. Gaetano Mcgregor Returned Call: 1219 I discussed the case with Dr. Gaetano Mcgregor. He will evaluate the patient for further treatment. Impression Primary Impression: Hyperkalemia Additional Impression: HEBERT (acute kidney injury) Critical Care I have personally spent greater than 30 minutes of critical care time in the direct management of this patient. This includes bedside care, interpretation of diagnostic studies, and testing, discussion with consultants, patient, and family members, and other required patient management activities. This 30 minutes is in excess of all separately billable procedures. Scribe Attestation The scribe's documentation has been prepared under my direction and personally reviewed by me in its entirety. I confirm that the note above accurately reflects all work, treatment, procedures, and medical decision making performed by me. The chart was completed utilizing [employer] Speech voice recognition software. Grammatical errors, random word insertions, pronoun errors, and incomplete sentences are an occasional consequence of this system due to software limitations, ambient noise, and hardware issues. Any formal questions or concerns about the content, text, or information contained within the body of this dictation should be directly addressed to the physician for clarification. Departure Information Dispostion Being Evaluated By Hospitalist Referrals Ac Mcmanus D.O. (PCP) Patient Instructions My [facility] Problem Qualifiers
[2017-07-18] MEDS ORDERED: INSULIN HUMAN REGULAR IV STA (18:32)
[2017-07-18 18:49] VITALS: BP 121/52; PULSE 56; TEMP 36.6; O2SAT 94
[2017-07-18] MEDS ORDERED: DEXTROSE 50% 50 ML SYR IV ONE (18:59)
[2017-07-18] MEDS ORDERED: INSULIN HUMAN REGULAR PER UNIT 10 UNITS in SYRINGE 9.9 ML IV SCH (19:00)
[2017-07-18] MEDS ORDERED: FUROSEMIDE INJ 20 MG in SYRINGE 0 ML IV ONE (19:00)
[2017-07-18] MEDS: ENOXAPARIN 30 MG/0.3 ML SYR SC SCH (21:24)
[2017-07-18] MEDS: CARVEDILOL 12.5 MG TAB PO SCH (21:24)
[2017-07-18] MEDS: MONTELUKAST SOD 10 MG TAB PO SCH (21:24)
[2017-07-18] MEDS: BELSOMRA PO SCH (21:25)
[2017-07-18] MEDS ORDERED: BUTALBITAL/ACETAMIN/CAFFEINE TAB PO ONE (23:30)
[2017-07-19] VITALS (7 sets, daily range): BP systolic 99–154; BP diastolic 47–87; PULSE 48–55; TEMP 36.5–36.8; O2SAT 94–97
[2017-07-19] MEDS: SODIUM CHLORIDE 0.9% 1000ML 1,000 ML IV SCH ×2 (00:26→08:20)
[2017-07-19] MEDS ORDERED: CYCLOBENZAPRINE HCL 5 MG TAB PO ONE ×2 (01:45→14:30)
[2017-07-19 06:17] LABS: HEMATOCRIT 27.8 % (37-47); HEMOGLOBIN 9.1 g/dL (12.0-16.0); MEAN CELL VOLUME 85.8 fL (80-100); MEAN CORPUSCULAR HEMOGLOBIN 28.1 pg (25-34); MEAN CORPUSCULAR HGB CONC 32.7 g/dl (32-36); MEAN PLATELET VOLUME 9.7 fL (7.4-10.4); PLATELET COUNT 175 K/uL (130-400); RED CELL DISTRIBUTION WIDTH CV 15.5 % (11.5-14.5); RED CELL DISTRIBUTION WIDTH SD 49.5 fL (36.4-46.3)
[2017-07-19] MEDS: LEVOTHYROXINE 25 MCG TAB PO SCH (06:32)
[2017-07-19 06:44] LABS: CALCIUM 7.7 mg/dl (8.5-10.1); CREATININE 2.98 mg/dl (0.60-1.20); POTASSIUM 4.9 mmol/L (3.5-5.1)
[2017-07-19] MEDS: CARVEDILOL 12.5 MG TAB PO SCH ×2 (08:11→20:49)
[2017-07-19] MEDS: CLOPIDOGREL BISULFATE 75 MG TAB PO SCH (08:11)
[2017-07-19] MEDS: AMLODIPINE BESYLATE 5 MG TAB PO SCH (08:12)
[2017-07-19] MEDS: FUROSEMIDE 40 MG TAB PO SCH (08:12)
[2017-07-19] MEDS: SITAGLIPTIN 25 MG TAB PO SCH (08:12)
[2017-07-19] MEDS: ASPIRIN 81 MG ECTAB PO SCH (08:13)
[2017-07-19] MEDS: FLUTICASONE PROPIONATE NA SPR 16 GM BTL NAE SCH (08:13)
[2017-07-19] MEDS: CLONAZEPAM 0.5 MG TAB PO SCH (08:20)
--- NOTE | 2017-07-19 15:59 | Progress Note ---
Medicine Progress Note Date & Time of Visit: Jul 19, 2017 at 14:12. Subjective Pt was seen and examined Very pleasant Sitting in chair comfortable with no distress Pt said that she feels fine Denies any chest pain, palpitation and SOB Objective Last 8 Hrs Date Time Temp Pulse Resp B/P (MAP) Pulse Ox O2 Delivery O2 Flow Rate FiO2 07/19/17 11:49 36.8 50 19 114/56 (75) 95 Room Air 07/19/17 08:13 36.5 48 18 136/77 (96) 95 Room Air 07/19/17 08:00 Room Air Physical Exam: General- No acute distress Head- atraumatic Eyes- PERRL, EOMI ENT- oropharynx clear Neck- supple, no JVD Lungs- No wheezing Heart- regular rhythm; +systolic murmur Abdomen- nontender, +BS Extremities-no calf tenderness Neuro- alert, oriented x 3; PERRL, EOMI Skin- warm & dry Laboratory Results: Last 24 Hours Test 07/18/17 16:47 07/19/17 05:34 07/19/17 07:11 07/19/17 10:55 Sodium Level 136 mmol/L 135 mmol/L Potassium Level 5.6 mmol/L 4.9 mmol/L Chloride Level 102 mmol/L 103 mmol/L Carbon Dioxide Level 28 mmol/L 26 mmol/L Anion Gap 6.0 mmol/L 6.0 mmol/L Blood Urea Nitrogen 71 mg/dl 65 mg/dl Creatinine 3.16 mg/dl 2.98 mg/dl Est Creatinine Clear Calc Drug Dose 15.1 ml/min 18.2 ml/min Estimated GFR () 16.6 17.8 Estimated GFR (Non- 14.3 15.3 BUN/Creatinine Ratio 22.4 21.8 Random Glucose 79 mg/dl 106 mg/dl Calcium Level 8.3 mg/dl 7.7 mg/dl Magnesium Level 2.5 mg/dl White Blood Count 5.80 K/uL Red Blood Count 3.24 M/uL Hemoglobin 9.1 g/dL Hematocrit 27.8 % Mean Corpuscular Volume 85.8 fL Mean Corpuscular Hemoglobin 28.1 pg Mean Corpuscular Hemoglobin Concent 32.7 g/dl RDW Standard Deviation 49.5 fL RDW Coefficient of Variation 15.5 % Platelet Count 175 K/uL Mean Platelet Volume 9.7 fL Bedside Glucose 125 mg/dl 175 mg/dl Assessment & Plan HYPERKALEMIA Potassium on admission 6.7, EKG did show peaked T waves and bradycardia of 49 Received calcium gluconate, sodium bicarb, insulin and dextrose and Kayexalate. K today 4.9 Continue monitor BMP ACUTE Kidney injury on chronic kidney disease Creatine was 3.3 on admission ( creatine was 2.2 on 07/11) Creatine improved to 2.9 On IV fluid Case discussed with nephrology (no official consult placed) Pt will follow with nephrology as an outpatient Continue monitor BMP DIABETES type 2 Recent Hba1c 7.9 on 07/03/17 Continue Januvia Monitor BS Depression with anxiety No acute symptoms Stable Hypertension BP stable Hypothyroidism Continue levothyroxine GI prophylaxis With PPI DVT prophylaxis On Lovenox CODE STATUS FULL CODE DISPOSITION Will discharge home tomorrow Current Inpatient Medications: Current Inpatient Medications Medications (Trade) Dose Ordered Sig/Millie Route Start Time Stop Time Status Last Admin Dose Admin Enoxaparin Sodium (Lovenox Inj) 30 mg Q24H SC 07/18/17 21:00 08/17/17 20:59 07/18/17 21:24 30 MG Ondansetron HCl (Zofran Inj) 4 mg Q6H PRN IV 07/18/17 12:45 08/17/17 12:44 Albuterol (Ventolin Hfa Inhaler) 2 puffs Q6 PRN INH 07/18/17 12:45 08/17/17 12:44 Aspirin (Ecotrin Tab) 81 mg DAILY PO 07/19/17 09:00 08/18/17 08:59 07/19/17 08:13 81 MG Carvedilol (Coreg Tab) 12.5 mg BID PO 07/18/17 21:00 08/17/17 20:59 07/19/17 08:11 12.5 MG Clonazepam (Klonopin Tab) 0.5 mg DAILY PO 07/19/17 09:00 08/18/17 08:59 07/19/17 08:20 0.5 MG Clopidogrel Bisulfate (plAVix TAB) 75 mg DAILY PO 07/19/17 09:00 08/18/17 08:59 07/19/17 08:11 75 MG Fluticasone Propionate (Flonase Nasal Howe) 2 sprays DAILY DENIZ 07/19/17 09:00 08/18/17 08:59 07/19/17 08:13 2 SPRAYS Furosemide (Lasix Tab) 40 mg DAILY PO 07/19/17 09:00 08/18/17 08:59 07/19/17 08:12 40 MG Hydralazine HCl (Apresoline Tab) 75 mg TID PO 07/18/17 16:00 08/17/17 15:59 07/18/17 21:24 75 MG Levothyroxine Sodium (Synthroid Tab) 25 mcg DAILYBB PO 07/19/17 06:00 08/18/17 06:59 07/19/17 06:32 25 MCG Montelukast Sodium (Singulair Tab) 10 mg HS PO 07/18/17 21:00 08/17/17 20:59 07/18/17 21:24 10 MG Nitroglycerin (Nitrostat Tab) 0.4 mg UD PRN UT 07/18/17 12:45 08/17/17 12:44 Sitagliptin Phosphate (Januvia Tab) 50 mg DAILY PO 07/19/17 09:00 08/18/17 08:59 07/19/17 08:12 50 MG Amlodipine Besylate (Norvasc Tab) 10 mg DAILY PO 07/19/17 09:00 08/18/17 08:59 07/19/17 08:12 10 MG Miscellaneous Information (Order Awaiting Action) 1 ea QS N/A 07/18/17 16:00 08/17/17 15:59 Miscellaneous (Iv Fluids Completed) 1 ea PRN PRN N/A 07/18/17 13:00 07/18/18 12:59 Non-Formulary Medication (Non-Formulary Patient'S Own Med) 1 ea HS PO 07/18/17 21:00 08/17/17 20:59 07/18/17 21:25 1 EA Acetaminophen (Tylenol Tab) 650 mg Q6H PRN PO 07/18/17 21:00 08/17/17 20:59
[2017-07-19] MEDS ORDERED: HydrALAZINE HCL 20 MG/ML VIAL IV. PRN (18:45)
[2017-07-19] MEDS: MONTELUKAST SOD 10 MG TAB PO SCH (20:42)
[2017-07-19] MEDS: BELSOMRA PO SCH (20:44)
[2017-07-19] MEDS: ENOXAPARIN 30 MG/0.3 ML SYR SC SCH (20:44)
[2017-07-19] MEDS: ACETAMINOPHEN 325 MG TAB PO PRN (20:48)
[2017-07-20] MEDS: ACETAMINOPHEN 325 MG TAB PO PRN (04:20)
[2017-07-20] MEDS: LEVOTHYROXINE 25 MCG TAB PO SCH (06:10)
[2017-07-20] MEDS: FLUTICASONE PROPIONATE NA SPR 16 GM BTL NAE SCH (07:40)
[2017-07-20] MEDS: SITAGLIPTIN 25 MG TAB PO SCH (07:40)
[2017-07-20] MEDS: ASPIRIN 81 MG ECTAB PO SCH (07:40)
[2017-07-20] MEDS: CARVEDILOL 12.5 MG TAB PO SCH (07:40)
[2017-07-20] MEDS: FUROSEMIDE 40 MG TAB PO SCH (07:46)
[2017-07-20] MEDS: CLOPIDOGREL BISULFATE 75 MG TAB PO SCH (07:46)
[2017-07-20] MEDS: AMLODIPINE BESYLATE 5 MG TAB PO SCH (07:46)
[2017-07-20] MEDS: CLONAZEPAM 0.5 MG TAB PO SCH (07:46)
[2017-07-20 08:28] LABS: HEMATOCRIT 31.8 % (37-47); HEMOGLOBIN 10.6 g/dL (12.0-16.0); MEAN CELL VOLUME 84.6 fL (80-100); MEAN CORPUSCULAR HEMOGLOBIN 28.2 pg (25-34); MEAN CORPUSCULAR HGB CONC 33.3 g/dl (32-36); MEAN PLATELET VOLUME 9.5 fL (7.4-10.4); PLATELET COUNT 208 K/uL (130-400); RED CELL DISTRIBUTION WIDTH CV 15.1 % (11.5-14.5); WHITE BLOOD COUNT 5.91 K/uL (4.8-10.8)
[2017-07-20 08:53] LABS: CALCIUM 8.1 mg/dl (8.5-10.1); CREATININE 2.87 mg/dl (0.60-1.20); POTASSIUM 4.7 mmol/L (3.5-5.1)
--- NOTE | 2017-07-20 10:17 | Discharge Instructions ---
Discharge Instructions Date of Service Jul 20, 2017. Admission Reason for Admission: [place], Hyperkalemia Discharge Discharge Diagnosis / Problem: Hyperkalemia, Acute kidney injury on CKD4 Discharge Goals Goal(s): Decrease discomfort, Improve function, Improve disease control Activity Recommendations Activity Limitations: resume your previous activity (as tolerated) . Instructions / Follow-Up Instructions / Follow-Up Follow up with your primary care provider Dr. Mcmanus on 07/26 @ 12:55 PM Please schedule and appointment to follow up with your kidney doctor Avoid medications that can damage your kidney Check BMP on Sunday to monitor your kidney function and electrolytes Fall precaution Current Hospital Diet Patient's current hospital diet: Renal Diet Discharge Diet Recommended Diet: Renal Diet Pending Studies Studies pending at discharge: no Laboratory Results Hemoglobin A1c Test 07/03/17 05:22 Range/Units Estimated Average Glucose 180 mg/dl Hemoglobin A1c 7.9 H 4.5-5.6 % Lipid Panel Test 07/04/17 05:50 Range/Units Triglycerides Level 177 H 0-150 mg/dl Cholesterol Level 257 H 0-200 mg/dl HDL Cholesterol 52 mg/dl Cholesterol/HDL Ratio 4.9 LDL Cholesterol, Calculated 170 mg/dl Medical Emergencies . Who to Call and When: Medical Emergencies: If at any time you feel your situation is an emergency, please call 911 immediately. . Non-Emergent Contact Non-Emergency issues call your: Primary Care Provider, Undercoat Sprayer Call Non-Emergent contact if: you have any medication questions . . "Provider Documentation" section prepared by Tona Reed. .
[2017-07-20 10:18] VITALS: BP 99/59; PULSE 55; TEMP 36.8; O2SAT 96
--- NOTE | 2017-07-20 17:14 | Progress Note ---
Medicine Progress Note Date & Time of Visit: Jul 20, 2017 at 09:11. Subjective Pt was seen and examined Sitting in chair comfortable with no distress with present Pt already dressed to go home She said that she feels fine Denies any chest pain, palpitation and SOB Objective Last 8 Hrs Date Time Temp Pulse Resp B/P (MAP) Pulse Ox O2 Delivery O2 Flow Rate FiO2 07/20/17 10:18 36.8 55 18 96 Room Air Physical Exam: General- No acute distress Head- atraumatic Eyes- PERRL, EOMI ENT- oropharynx clear Neck- supple, no JVD Lungs- No wheezing Heart- regular rhythm; +systolic murmur Abdomen- nontender, +BS Extremities-no calf tenderness Neuro- alert, oriented x 3; PERRL, EOMI Skin- warm & dry Laboratory Results: Last 24 Hours Test 07/20/17 07:49 White Blood Count 5.91 K/uL Red Blood Count 3.76 M/uL Hemoglobin 10.6 g/dL Hematocrit 31.8 % Mean Corpuscular Volume 84.6 fL Mean Corpuscular Hemoglobin 28.2 pg Mean Corpuscular Hemoglobin Concent 33.3 g/dl RDW Standard Deviation 47.0 fL RDW Coefficient of Variation 15.1 % Platelet Count 208 K/uL Mean Platelet Volume 9.5 fL Sodium Level 137 mmol/L Potassium Level 4.7 mmol/L Chloride Level 105 mmol/L Carbon Dioxide Level 26 mmol/L Anion Gap 6.0 mmol/L Blood Urea Nitrogen 64 mg/dl Creatinine 2.87 mg/dl Est Creatinine Clear Calc Drug Dose 18.9 ml/min Estimated GFR () 18.6 Estimated GFR (Non- 16.1 BUN/Creatinine Ratio 22.1 Random Glucose 136 mg/dl Calcium Level 8.1 mg/dl Assessment & Plan HYPERKALEMIA Potassium on admission 6.7, EKG did show peaked T waves and bradycardia of 49 Received calcium gluconate, sodium bicarb, insulin and dextrose and Kayexalate. K today 4.7 Continue monitor BMP Resolved ACUTE Kidney injury on chronic kidney disease Creatine was 3.3 on admission ( creatine was 2.2 on 07/11) Creatine improved to 2.8 today On IV fluid Case discussed with nephrology (no official consult placed) Pt will follow with nephrology as an outpatient Continue monitor BMP DIABETES type 2 Recent Hba1c 7.9 on 07/03/17 Continue Januvia Monitor BS Depression with anxiety No acute symptoms Stable Hypertension BP stable Hypothyroidism Continue levothyroxine GI prophylaxis With PPI DVT prophylaxis On Lovenox CODE STATUS FULL CODE DISPOSITION Will discharge home today follow up with your PCP 07/26 @ 12:55 pm Check BMP within 1 week
--- NOTE | 2017-07-22 08:51 | Discharge Summary ---
Discharge Summary Date of Service Jul 22, 2017. Discharge Summary Admission Date: Jul 18, 2017 at 12:38 Discharge Date: Jul 20, 2017 Discharge Disposition: Home Principal Diagnosis: HYPERKALEMIA Secondary Diagnoses/Problems: ACUTE Kidney injury on Chronic Kidney Disease Depression with anxiety HTN DM type 2 Hypothyroidism Medication Reconciliation Continued Medications: Albuterol Hfa (Ventolin Hfa) 200 Puffs/07254 Mcg Aers 2 PUFFS INH Q6 PRN for SOB/Wheezing Amlodipine Besylate (Amlodipine Besylate) 10 Mg Tab 10 MG PO DAILY Aspirin (Aspirin Ec) 81 Mg Tab 81 MG PO DAILY Carvedilol (Coreg) 12.5 Mg Tab 12.5 MG PO BID Clonazepam (Clonazepam) 0.5 Mg Tab 0.5 MG PO DAILY Clopidogrel (Plavix) 75 Mg Tab 75 MG PO DAILY Fluticasone Furoate-Vilanterol (Breo Ellipta) 1 Inh Inh 1 PUFF INH DAILY Fluticasone Propionate (Nasal) (Flonase Allergy Relief) 50 Mcg/Act Spr 2 SPRAY DENIZ DAILY Furosemide (Lasix) 40 Mg Tab 40 MG PO DAILY Hydralazine HCl (Hydralazine HCl) 25 Mg Tab 75 MG PO TID Levothyroxine Sodium (Synthroid) 25 Mcg Tab 25 MCG PO DAILY Montelukast Sodium (Montelukast Sodium) 10 Mg Tab 1 TAB PO HS for 90 Days, TAB 3 Refills Nitroglycerin (Nitrostat) 0.4 Mg Sub 0.4 MG UT PRN, BTL Sertraline HCl (Sertraline HCl) 100 Mg Tab 150 MG PO DAILY Sitagliptin Phosphate (Januvia) 50 Mg Tab 50 MG PO DAILY Suvorexant (Belsomra) 15 Mg Tab 15 MG PO HS Discontinued Medications: Potassium Gluconate (Potassium Gluconate) 595 Mg Tab 2 TABS PO QPM Admission Information HPI (per Admitting provider): She is a 46-year-old white female with significant past medical history of CKD stage IV diabetes type 2 hypertension and other medical problems as mentioned below apparently was seen in the clinic yesterday as noted to have high potassium and she was advised to come to the hospital. She decided to come this morning and she was noted to have a potassium of 6.7 in the ER and creatinine of 3.38, she remained totally asymptomatic. She denies to have any chest pain shortness of breath palpitation, no abdominal pain nausea and/or vomiting, no problem with urine in the bowel habit, and denies to any numbness tingling in the extremities as well. She does not have any fever chills or riders any cough or any shortness of breath. She received calcium gluconate, insulin and dextrose IV, IV sodium bicarb, nebulized treatment with albuterol, and Kayexalate by the ER physician and was advised for admission to telemetry unit. Her EKG did show peaked T-wave. Physical Exam (per Admitting): General Appearance: no apparent distress Head: normocephalic Eyes: normal inspection ENT: normal ENT inspection Neck: supple Respiratory/Chest: lungs clear, normal breath sounds Cardiovascular: regular rate, rhythm Abdomen/GI: normal bowel sounds, non tender, no organomegaly, normal rectal exam Genitourinary - Female: external genitalia normal Back: normal inspection Extremities/Musculoskelatal: normal inspection Neurologic/Psych: no motor/sensory deficits, alert, normal mood/affect, normal reflexes, oriented x 3 Skin: normal color Lymphatic: no adenopathy Hospital Course HYPERKALEMIA Potassium on admission 6.7, EKG did show peaked T waves and bradycardia of 49 Received calcium gluconate, sodium bicarb, insulin and dextrose and Kayexalate. K today 4.7 Continue monitor BMP Resolved ACUTE Kidney injury on chronic kidney disease Creatine was 3.3 on admission ( creatine was 2.2 on 07/11) Creatine improved to 2.8 today On IV fluid Case discussed with nephrology (no official consult placed) Pt will follow with nephrology as an outpatient Continue monitor BMP DIABETES type 2 Recent Hba1c 7.9 on 07/03/17 Continue Januvia Monitor BS Depression with anxiety No acute symptoms Stable Hypertension BP stable Hypothyroidism Continue levothyroxine GI prophylaxis With PPI DVT prophylaxis On Lovenox CODE STATUS FULL CODE DISPOSITION Will discharge home today follow up with your PCP 07/26 @ 12:55 pm Check BMP within 1 week Total time spent on discharge = 35 minutes This includes examination of the patient, discharge planning, medication reconciliation, and communication with other providers. Discharge Instructions Discharge Instructions Date of Service Jul 20, 2017. Admission Reason for Admission: [place], Hyperkalemia Discharge Discharge Diagnosis / Problem: Hyperkalemia, Acute kidney injury on CKD4 Discharge Goals Goal(s): Decrease discomfort, Improve function, Improve disease control Activity Recommendations Activity Limitations: resume your previous activity (as tolerated) . Instructions / Follow-Up Instructions / Follow-Up Follow up with your primary care provider Dr. Mcmanus on 07/26 @ 12:55 PM Please schedule and appointment to follow up with your kidney doctor Avoid medications that can damage your kidney Check BMP on Sunday to monitor your kidney function and electrolytes Fall precaution Current Hospital Diet Patient's current hospital diet: Renal Diet Discharge Diet Recommended Diet: Renal Diet Pending Studies Studies pending at discharge: no Laboratory Results Hemoglobin A1c Test 07/03/17 05:22 Range/Units Estimated Average Glucose 180 mg/dl Hemoglobin A1c 7.9 H 4.5-5.6 % Lipid Panel Test 07/04/17 05:50 Range/Units Triglycerides Level 177 H 0-150 mg/dl Cholesterol Level 257 H 0-200 mg/dl HDL Cholesterol 52 mg/dl Cholesterol/HDL Ratio 4.9 LDL Cholesterol, Calculated 170 mg/dl Medical Emergencies . Who to Call and When: Medical Emergencies: If at any time you feel your situation is an emergency, please call 911 immediately. . Non-Emergent Contact Non-Emergency issues call your: Primary Care Provider, Boatswains Mate Call Non-Emergent contact if: you have any medication questions . . "Provider Documentation" section prepared by Tona Reed. . Additional Copies To Ac Mcmanus D.O.
== END 2017-07-20 11:00 | disposition home or self-care (01) ==
LOC: C.EDB 09:45 → C.2E 12:38 → ENRESERV 12:49 → CANRESERV 12:49 → EDBEDREQ 13:01 → EDBEDREQTM 13:01 → ENRESERV 14:24 → C.MS4W 07-19 19:48
PROVIDERS: ADMIT Internal Medicine; ATTEND Internal Medicine
DX: E87.5 Hyperkalemia (principal); N17.9 Acute kidney failure, unspecified; I13.0 Hypertensive heart and chronic kidney disease with heart failure and stage 1 through stage 4 chronic kidney disease, or unspecified chronic kidney disease; I50.30 Unspecified diastolic (congestive) heart failure; N18.4 Chronic kidney disease, stage 4 (severe); F32.9 Major depressive disorder, single episode, unspecified; E11.9 Type 2 diabetes mellitus without complications; E03.9 Hypothyroidism, unspecified; K21.9 Gastro-esophageal reflux disease without esophagitis; I25.10 Atherosclerotic heart disease of native coronary artery without angina pectoris; F17.200 Nicotine dependence, unspecified, uncomplicated; Z79.82 Long term (current) use of aspirin; Z95.1 Presence of aortocoronary bypass graft; Z90.710 Acquired absence of both cervix and uterus; Z90.722 Acquired absence of ovaries, bilateral; Z90.79 Acquired absence of other genital organ(s); Z88.0 Allergy status to penicillin; Z91.030 Bee allergy status; Z83.3 Family history of diabetes mellitus; Z82.49 Family history of ischemic heart disease and other diseases of the circulatory system; Z84.1 Family history of disorders of kidney and ureter

== ENCOUNTER 2019-07-21 14:02 | Inpatient (IN) ==
[2019-07-21] MEDS ORDERED: SODIUM CHLORIDE 0.9% 1000ML 250 ML IV ONE (14:10)
--- NOTE | 2019-07-21 14:13 | Emergency Department Note ---
History of Present Illness General Chief complaint: Altered Mental Status Stated complaint: ams Time Seen by Provider: 07/21/19 14:04 Source: EMS Mode of arrival: EMS Limitations: altered mental status History of Present Illness Provider complaint: Altered mental status Onset (ago): day(s) 3 This is a 69-year-old female brought in from home by EMS for altered mental status. Per EMS, patient's whom she lives with called 911 today and told them she is been confused for several days. He stated her last dialysis treatment was on Sunday. He denied any recent illness or change in her medications. He stated to them that she is also been falling a lot. EMS noted patient was hypertensive however had stable vitals. Patient was repetitive in route and continued to say her name over and over. Patient was unable to answer any additional questions or follow other commands. Blood sugar by EMS was 143. HPI limited by patient's altered mental status. Pt seen during a time of high acuity and national emergency pandemic while wearing PPE. Home Medications Home Medications Medication Instructions Recorded Confirmed Type Breo Ellipta 1 inh INHALATION QAM 02/18/18 07/21/19 History albuterol sulfate 2 puff INHALATION QID PRN 02/18/18 07/21/19 History aspirin 81 mg PO QAM 02/18/18 07/21/19 History azelastine 1 spray INTRANASAL QAM 02/18/18 07/21/19 History cholecalciferol (vitamin D3) 1,000 unit PO BID 02/18/18 07/21/19 History clopidogrel [Plavix] 75 mg PO QAM 02/18/18 07/21/19 History cyclobenzaprine 5 mg PO TID PRN 02/18/18 07/21/19 History fluticasone propionate [Flonase 1 spray INTRANASAL DAILY 02/18/18 07/21/19 History Allergy Relief] furosemide [Lasix] 40 mg PO QAM 02/18/18 07/21/19 History levothyroxine 25 mcg PO QAM 02/18/18 07/21/19 History montelukast [Singulair] 10 mg PO HS 02/18/18 07/21/19 History sertraline [Zoloft] 150 mg PO QAM 02/18/18 07/21/19 History hydroxyzine pamoate [Vistaril] 50 mg PO HS 03/26/19 07/21/19 History ondansetron 4 mg PO Q6H PRN 03/26/19 07/21/19 History sevelamer carbonate [Renvela] 800 mg PO TIDM 03/26/19 07/21/19 History suvorexant [Belsomra] 20 mg PO HS 03/26/19 07/21/19 History mirtazapine 30 mg PO HS 07/21/19 07/21/19 History Allergies Allergy/AdvReac Type Severity Reaction Status Date / Time tomato Allergy Severe Hives Verified 07/21/19 14:34 bee venom protein (honey bee) Allergy Mild MOUTH Verified 07/21/19 14:34 SWELLING Penicillins Allergy Mild RASH Verified 07/21/19 14:34 prednisone Allergy Mild SWELLING Verified 07/21/19 14:34 OG HANDS, ITCHING, RASH rosuvastatin Allergy Mild SEVERE H/A Verified 07/21/19 14:34 Vwpgnzq-Juz-Mur Reductase AdvReac Mild EFFECTED Verified 07/21/19 14:34 Inhibitor LIVER STUDIES Past Med/Surg History Medical History Anemia Anxiety Asthma Uses albuterol daily. Atrial fibrillation FOLLOWED BY DR. CARROLL AV fistula Depression Diabetes mellitus, type 2 no medications currently -- experiencing hypoglycemia recently. End stage renal disease receiving hemodiaylsis Sunday//Saturdays in [place]. Follows Dr. Ramirez ([place], [place]). Endometriosis stage 4 GERD (gastroesophageal reflux disease) Hyperlipidemia Hypertension no medications currently - experiencing hypotension Hypothyroidism Kidney failure STAGE 4 NO DIALYSIS Migraine Myocardial Infarction 2007 Osteoarthritis Stroke X 2 2014 Surgical History History of abdominal surgery UMBILICAL MESH REMOVED (NECROTIC) History of adenoidectomy History of appendectomy History of martha hole surgery 2013 AFTER CVA TO "REMOVED FLUID" History of cardiac cath 2007 AT [facility] History of cataract surgery RT/LEFT History of section X 3 History of cholecystectomy History of colonoscopy History of coronary artery bypass graft 2008 3 [facility] History of esophagogastroduodenoscopy (EGD) History of herniorrhaphy X 3 REPAIRS History of surgery LEFT FOOT/ANKLE FX REPAIR S/P FALL (HARDWARE) History of tonsillectomy History of tooth extraction History of total abdominal hysterectomy and bilateral salpingo-oophorectomy History of total knee replacement LEFT Hx of hand surgery LEFT HAND SURGERY "TOOK BONES OUT" S/P arteriovenous (AV) fistula creation Left arm S/P panniculectomy Family History Brother Family history of diabetes mellitus Mother Family history of diabetes mellitus Other No family history of adverse response to anesthesia Social History Preferred Language: Lithuanian Communication Ability: Impaired Passport Support Manager Required: No Beliefs That Will Affect Care: None Current Living Situation: Spouse Current Living Situation Comment: unable to respond Feels Safe at Home: Yes Smoking Status: Unknown if ever smoked Hx Alcohol Use: No Hx Substance Use: No Review of Systems Unobtainable due to cognitive status Physical Exam Vital Signs Vital Signs - 24 hr 07/21/19 14:08 07/21/19 14:44 07/21/19 14:45 Temperature 37.2 C Temperature Source Rectal Pulse Rate 74 71 Pulse Rate from SpO2 Sensor 71 Respiratory Rate 20 16 Blood Pressure 223/118 H 193/82 H Blood Pressure Mean 153 104 Pulse Oximetry 93 98 Oxygen Delivery Method Room Air Nasal Cannula Nasal Cannula Oxygen Flow Rate 2 2 Sepsis Recent Fever Within 48 Hours No Sepsis Action Taken by Nursing No Action Required 07/21/19 15:09 07/21/19 15:30 07/21/19 15:45 Temperature Temperature Source Pulse Rate 71 75 71 Pulse Rate from SpO2 Sensor 71 75 71 Respiratory Rate 16 21 14 Blood Pressure 176/93 H 174/81 H 154/73 H Blood Pressure Mean 132 145 105 Pulse Oximetry 100 100 99 Oxygen Delivery Method Nasal Cannula Nasal Cannula Nasal Cannula Oxygen Flow Rate 2 2 2 Sepsis Recent Fever Within 48 Hours Sepsis Action Taken by Nursing 07/21/19 16:00 07/21/19 16:15 07/21/19 16:30 Temperature Temperature Source Pulse Rate 74 77 78 Pulse Rate from SpO2 Sensor 74 77 78 Respiratory Rate 21 16 19 Blood Pressure 157/74 H 170/85 H 178/82 H Blood Pressure Mean 111 124 119 Pulse Oximetry 99 99 99 Oxygen Delivery Method Nasal Cannula Nasal Cannula Nasal Cannula Oxygen Flow Rate 2 2 2 Sepsis Recent Fever Within 48 Hours Sepsis Action Taken by Nursing 07/21/19 16:45 Temperature Temperature Source Pulse Rate 85 Pulse Rate from SpO2 Sensor 85 Respiratory Rate 13 Blood Pressure 181/100 H Blood Pressure Mean 146 Pulse Oximetry 97 Oxygen Delivery Method Nasal Cannula Oxygen Flow Rate 2 Sepsis Recent Fever Within 48 Hours Sepsis Action Taken by Nursing GENERAL: alert, ill appearing, well nourished, no distress, non-toxic EYE EXAM: normal conjunctiva, PERRL with conjugate gaze, no nystagmus OROPHARYNX: no exudate, no erythema, lips, buccal mucosa, and tongue normal and mucous membranes are dry NECK: supple, no nuchal rigidity, no adenopathy, non-tender LUNGS: Clear to auscultation. Normal chest wall mechanics, no w/r/r HEART: no murmurs, S1 normal and S2 normal, well-healed vertical midline sternotomy scar ABDOMEN: abdomen soft, non-tender, normo-active bowel sounds, no masses, no rebound or guarding. BACK: Back is symmetrical on inspection and there is no deformity, no midline tenderness, no CVA tenderness. SKIN: no rashes and no bruising UPPER EXTREMITIES: upper extremities are grossly normal. FROM, nml pulses b/l. Contusion noted to ventral right forearm. Fistula noted in left proximal upper extremity, decreased quality of thrill and bruit noted. LOWER EXTREMITIES: No pitting edema. FROM, nml pulses b/l. Healing abrasions and contusions noted to right knee. No joint effusions. No evidence of other deformities or trauma. NEURO EXAM: Patient awake, continues to repeat her name, did follow the command to open her mouth, intermittent whole body jerking motion that is nonsustained and not seizure-like Course Course 1754: Still awaiting repeat UA results. I called the lab for the 2nd time regarding this. 181: Pt now will answer a few simple questions. BP much improved after hydralazine. 182: [facility] Administered Medications Aspirin (Ecotrin Ectab) 81 mg PO [facility] Stop: 08/21/19 15:44 Last Admin: 07/23/19 08:19 Dose: 81 mg Documented by: [id number] Admin: 07/22/19 16:40 Dose: 81 mg Documented by: [id number] Clopidogrel Bisulfate (Plavix) 75 mg PO [facility] Stop: 08/21/19 15:44 Last Admin: 07/23/19 08:19 Dose: 75 mg Documented by: [id number] Admin: 07/22/19 16:40 Dose: 75 mg Documented by: [id number] Fluticasone/Vilanterol (Breo Ellipta 100/25 Mcg Inh) 1 puffs INH QAM [facility] Stop: 08/21/19 08:59 Last Admin: 07/23/19 08:19 Dose: 1 puffs Documented by: [id number] Admin: 07/22/19 09:16 Dose: 1 puffs Documented by: [id number] Hydralazine HCl (Hydralazine Hcl) 5 mg IV Q6H PRN PRN Reason: systolic blood pressure above 160 Stop: 08/20/19 19:29 Last Admin: 07/23/19 16:53 Dose: 5 mg Documented by: [id number] Admin: 07/22/19 22:13 Dose: 5 mg Documented by: [id number] Admin: 07/22/19 11:14 Dose: 5 mg Documented by: [id number] Admin: 07/22/19 04:49 Dose: 5 mg Documented by: [id number] Ceftriaxone Sodium (Rocephin) 1,000 mg in 50 mls @ 100 mls/hr IV Q24H [facility] Stop: 08/01/19 19:59 Last Infusion: 07/23/19 21:03 Dose: 0 mls/hr Documented by: [id number] Admin: 07/23/19 20:20 Dose: 100 mls/hr Documented by: [id number] Infusion: 07/22/19 22:10 Dose: 0 mls/hr Documented by: [id number] Admin: 07/22/19 21:31 Dose: 100 mls/hr Documented by: [id number] Levothyroxine Sodium (Synthroid) 25 mcg PO DAILYBB [facility] Stop: 08/22/19 06:29 Last Admin: 07/23/19 05:43 Dose: Not Given Documented by: [id number] Metoprolol Tartrate (Lopressor) 12.5 mg PO BID [facility] Stop: 08/22/19 12:14 Last Admin: 07/23/19 20:20 Dose: 12.5 mg Documented by: [id number] Admin: 07/23/19 13:01 Dose: 12.5 mg Documented by: [id number] Mirtazapine (Remeron) 30 mg PO HS [facility] Stop: 08/22/19 20:59 Last Admin: 07/23/19 20:20 Dose: 30 mg Documented by: [id number] Montelukast Sodium (Singulair) 10 mg PO HS [facility] Stop: 08/21/19 20:59 Last Admin: 07/23/19 20:21 Dose: 10 mg Documented by: [id number] Admin: 07/22/19 21:28 Dose: Not Given Documented by: [id number] Sevelamer HCl (Renagel) 800 mg PO TIDM [facility] Stop: 08/21/19 07:59 Last Admin: 07/23/19 16:54 Dose: 800 mg Documented by: [id number] Admin: 07/23/19 11:41 Dose: 800 mg Documented by: [id number] Admin: 07/23/19 08:20 Dose: Not Given Documented by: [id number] Admin: 07/22/19 16:40 Dose: 800 mg Documented by: [id number] Admin: 07/22/19 14:07 Dose: Not Given Documented by: [id number] Admin: 07/22/19 09:16 Dose: 800 mg Documented by: [id number] Vitamin D (Vitamin D3) 1,000 units PO BID [facility] Stop: 08/22/19 20:59 Last Admin: 07/23/19 20:22 Dose: 1,000 units Documented by: [id number] Discontinued Medications Heparin Sodium (Porcine) (Heparin Iv Bolus) 1,000 units IV ONE ONE Stop: 07/22/19 07:41 Last Admin: 07/23/19 10:32 Dose: Not Given Documented by: [id number] Heparin Sodium (Porcine) (Heparin Iv Bolus) 400 units IV Q1H SIL[facility]IA Stop: 07/22/19 09:46 Last Admin: 07/23/19 10:32 Dose: Not Given Documented by: [id number] Admin: 07/23/19 10:32 Dose: Not Given Documented by: [id number] Admin: 07/23/19 10:32 Dose: Not Given Documented by: [id number] Hydralazine HCl (Hydralazine Hcl) 10 mg IV NOW STA Stop: 07/21/19 15:05 Last Admin: 07/21/19 15:10 Dose: 10 mg Documented by: [id number] Sodium Chloride (Nss 1000ml) 250 mls @ 999 mls/hr IV .Q16M ONE Stop: 07/21/19 14:25 Last Infusion: 07/21/19 15:10 Dose: 0 mls/hr Documented by: [id number] Admin: 07/21/19 14:45 Dose: 999 mls/hr Documented by: [id number] Sodium Chloride (Nss 1000ml) 1,000 mls @ 125 mls/hr IV .Q8H SILVIA Stop: 08/20/19 16:44 Last Infusion: 07/22/19 00:34 Dose: 0 mls/hr Documented by: [id number] Infusion: 07/21/19 18:50 Dose: 0 mls/hr Documented by: [id number] Admin: 07/21/19 17:00 Dose: 125 mls/hr Documented by: [id number] Ceftriaxone Sodium (Rocephin) 1,000 mg in 50 mls @ 100 mls/hr IV NOW STA Stop: 07/21/19 19:46 Last Infusion: 07/21/19 20:20 Dose: 0 mls/hr Documented by: [id number] Admin: 07/21/19 19:50 Dose: 100 mls/hr Documented by: [id number] Dextrose/Sodium Chloride (D5w And 1/2nss) 1,000 mls @ 60 mls/hr IV .[id number] SILVIA Stop: 07/22/19 10:00 Last Infusion: 07/23/19 10:29 Dose: 0 mls/hr Documented by: [id number] Admin: 07/21/19 23:22 Dose: 60 mls/hr Documented by: [id number] Medical Decision Making Differential Diagnosis Differential diagnoses includes but is not limited to toxic, metabolic, infectious, traumatic, cardiac, neurologic, hematologic, psychiatric and infl ammatory etiologies. Medical Records Attestation: I reviewed the patient's medical records. Home Medications Current Medication List: was personally reviewed by me Laboratory Data Attestation: I reviewed the patient's lab results. Result diagrams: 07/21/19 14:33 07/23/19 04:58 Lab Results 07/21/19 07/21/19 07/21/19 Range/Units 14:15 14:33 14:33 WBC 10.63 (4.8-10.8) K/uL RBC 4.82 (4.2-5.4) M/uL Hgb 14.1 (12.0-16.0) g/dL Hct 42.3 (37-47) % MCV 87.8 (80-100) fL MCH 29.3 (25-34) pg MCHC 33.3 (32-36) g/dL RDW Std Deviation 44.2 (36.4-46.3) fL RDW Coeff of Odilon 13.7 (11.5-14.5) % Plt Count 217 (130-400) K/uL MPV 9.2 (7.4-10.4) fL Immature Gran % (Auto) 0.2 % Neut % (Auto) 83.9 % Lymph % (Auto) 10.6 % Mcclain % (Auto) 5.1 % Eos % (Auto) 0.1 % Baso % (Auto) 0.1 % Immature Gran # (Auto) 0.02 (0.00-0.02) K/uL Neut # (Auto) 8.92 H (1.4-6.5) K/uL Lymph # (Auto) 1.13 L (1.2-3.4) K/uL Mcclain # (Auto) 0.54 (0.11-0.59) K/uL Eos # (Auto) 0.01 (0-0.5) K/uL Baso # (Auto) 0.01 (0-0.2) K/uL PT (9.0-12.0) Seconds INR (0.9-1.1) Sodium 136 (136-145) mmol/L Potassium 4.6 (3.5-5.1) mmol/L Chloride 98 (98-107) mmol/L Carbon Dioxide 29 (21-32) mmol/L Anion Gap 9.0 (3-11) BUN 57 H (7-18) mg/dl Creatinine 4.51 H* (0.6-1.2) mg/dl Est Cr Clr Drug Dosing Not Reportable Est GFR ( Amer) 10.6 Est GFR (Non-Af Amer) 9.2 BUN/Creatinine Ratio 12.5 (10-20) Glucose 161 H (70-99) mg/dl POC Glucose (70-99) mg/dl Lactate (0.4-2.0) mmol/L Calcium 9.5 (8.5-10.1) mg/dl Phosphorus 6.6 H (2.5-4.9) mg/dl Magnesium 2.5 H (1.8-2.4) mg/dl Total Bilirubin 0.6 (0.2-1) mg/dl AST 15 (15-37) U/L ALT 13 (12-78) U/L Alkaline Phosphatase 158 H (45-117) U/L Total Protein 8.2 (6.4-8.2) gm/dl Albumin 3.4 (3.4-5.0) gm/dl Globulin 4.8 H (2.5-4.0) gm/dl Albumin/Globulin Ratio 0.7 L (0.9-2) Lipase 79 (73-393) U/L Procalcitonin (0-0.5) ng/ml TSH 1.680 (0.300-4.500) uIu/ml Urine Color Cancelled Urine Appearance Cancelled Urine pH Cancelled Ur Specific [place] Cancelled Urine Protein Cancelled Urine Glucose (UA) Cancelled Urine Ketones Cancelled Urine Blood Cancelled Urine Nitrite Cancelled Urine Bilirubin Cancelled Urine Urobilinogen Cancelled Ur Leukocyte Esterase Cancelled Urine WBC (Auto) Cancelled Urine RBC (Auto) Cancelled U Hyaline Cast (Auto) Cancelled U Epithel Cells (Auto) Cancelled Urine Bacteria (Auto) Cancelled Ur Renal Epithelial Cell Cancelled Urine Crystals Cancelled Calcium Oxalate Crystal Cancelled Uric Acid Crystals Cancelled Triple Phos Crystals Cancelled Other Crystals Cancelled Amorphous Sediment Cancelled Granular Casts Cancelled Waxy Casts Cancelled RBC Casts Cancelled WBC Casts Cancelled Other Casts Cancelled Urine Mucus Cancelled Urine Other Cancelled Urine Trichomonas Cancelled Urine Yeast Cancelled Urine Sperm Cancelled Ur Oval Fat Bodies Cancelled 07/21/19 07/21/19 07/21/19 Range/Units 14:33 14:33 14:40 WBC (4.8-10.8) K/uL RBC (4.2-5.4) M/uL Hgb (12.0-16.0) g/dL Hct (37-47) % MCV (80-100) fL MCH (25-34) pg MCHC (32-36) g/dL RDW Std Deviation (36.4-46.3) fL RDW Coeff of Odilon (11.5-14.5) % Plt Count (130-400) K/uL MPV (7.4-10.4) fL Immature Gran % (Auto) % Neut % (Auto) % Lymph % (Auto) % Mcclain % (Auto) % Eos % (Auto) % Baso % (Auto) % Immature Gran # (Auto) (0.00-0.02) K/uL Neut # (Auto) (1.4-6.5) K/uL Lymph # (Auto) (1.2-3.4) K/uL Mcclain # (Auto) (0.11-0.59) K/uL Eos # (Auto) (0-0.5) K/uL Baso # (Auto) (0-0.2) K/uL PT 10.9 (9.0-12.0) Seconds INR 1.0 (0.9-1.1) Sodium (136-145) mmol/L Potassium (3.5-5.1) mmol/L Chloride (98-107) mmol/L Carbon Dioxide (21-32) mmol/L Anion Gap (3-11) BUN (7-18) mg/dl Creatinine (0.6-1.2) mg/dl Est Cr Clr Drug Dosing Est GFR ( Amer) Est GFR (Non-Af Amer) BUN/Creatinine Ratio (10-20) Glucose (70-99) mg/dl POC Glucose (70-99) mg/dl Lactate 1.4 (0.4-2.0) mmol/L Calcium (8.5-10.1) mg/dl Phosphorus (2.5-4.9) mg/dl Magnesium (1.8-2.4) mg/dl Total Bilirubin (0.2-1) mg/dl AST (15-37) U/L ALT (12-78) U/L Alkaline Phosphatase (45-117) U/L Total Protein (6.4-8.2) gm/dl Albumin (3.4-5.0) gm/dl Globulin (2.5-4.0) gm/dl Albumin/Globulin Ratio (0.9-2) Lipase (73-393) U/L Procalcitonin 0.28 (0-0.5) ng/ml TSH (0.300-4.500) uIu/ml Urine Color Urine Appearance Urine pH Ur Specific [place] Urine Protein Urine Glucose (UA) Urine Ketones Urine Blood Urine Nitrite Urine Bilirubin Urine Urobilinogen Ur Leukocyte Esterase Urine WBC (Auto) Urine RBC (Auto) U Hyaline Cast (Auto) U Epithel Cells (Auto) Urine Bacteria (Auto) Ur Renal Epithelial Cell Urine Crystals Calcium Oxalate Crystal Uric Acid Crystals Triple Phos Crystals Other Crystals Amorphous Sediment Granular Casts Waxy Casts RBC Casts WBC Casts Other Casts Urine Mucus Urine Other Urine Trichomonas Urine Yeast Urine Sperm Ur Oval Fat Bodies 07/21/19 07/21/19 Range/Units 14:51 16:45 WBC (4.8-10.8) K/uL RBC (4.2-5.4) M/uL Hgb (12.0-16.0) g/dL Hct (37-47) % MCV (80-100) fL MCH (25-34) pg MCHC (32-36) g/dL RDW Std Deviation (36.4-46.3) fL RDW Coeff of Odilon (11.5-14.5) % Plt Count (130-400) K/uL MPV (7.4-10.4) fL Immature Gran % (Auto) % Neut % (Auto) % Lymph % (Auto) % Mcclain % (Auto) % Eos % (Auto) % Baso % (Auto) % Immature Gran # (Auto) (0.00-0.02) K/uL Neut # (Auto) (1.4-6.5) K/uL Lymph # (Auto) (1.2-3.4) K/uL Mcclain # (Auto) (0.11-0.59) K/uL Eos # (Auto) (0-0.5) K/uL Baso # (Auto) (0-0.2) K/uL PT (9.0-12.0) Seconds INR (0.9-1.1) Sodium (136-145) mmol/L Potassium (3.5-5.1) mmol/L Chloride (98-107) mmol/L Carbon Dioxide (21-32) mmol/L Anion Gap (3-11) BUN (7-18) mg/dl Creatinine (0.6-1.2) mg/dl Est Cr Clr Drug Dosing Est GFR ( Amer) Est GFR (Non-Af Amer) BUN/Creatinine Ratio (10-20) Glucose (70-99) mg/dl POC Glucose 140 H (70-99) mg/dl Lactate (0.4-2.0) mmol/L Calcium (8.5-10.1) mg/dl Phosphorus (2.5-4.9) mg/dl Magnesium (1.8-2.4) mg/dl Total Bilirubin (0.2-1) mg/dl AST (15-37) U/L ALT (12-78) U/L Alkaline Phosphatase (45-117) U/L Total Protein (6.4-8.2) gm/dl Albumin (3.4-5.0) gm/dl Globulin (2.5-4.0) gm/dl Albumin/Globulin Ratio (0.9-2) Lipase (73-393) U/L Procalcitonin (0-0.5) ng/ml TSH (0.300-4.500) uIu/ml Urine Color Yellow Urine Appearance Cloudy A Urine pH 6.5 Ur Specific [place] 1.015 Urine Protein 2+ H Urine Glucose (UA) Negative Urine Ketones Trace H Urine Blood Negative Urine Nitrite Negative Urine Bilirubin Negative Urine Urobilinogen Negative Ur Leukocyte Esterase Trace H Urine WBC (Auto) 5-10 H Urine RBC (Auto) 0-4 U Hyaline Cast (Auto) 1-5 U Epithel Cells (Auto) >30 H Urine Bacteria (Auto) 1+ H Ur Renal Epithelial Cell Not Reportable Urine Crystals Calcium Oxalate Crystal Uric Acid Crystals Triple Phos Crystals Other Crystals Amorphous Sediment Granular Casts Waxy Casts RBC Casts WBC Casts Other Casts Urine Mucus Urine Other Urine Trichomonas Urine Yeast Urine Sperm Ur Oval Fat Bodies Imaging Data Radiologist's Impression: CT SCAN OF THE CERVICAL SPINE CLINICAL HISTORY: Fall. COMPARISON STUDY: CT of the cervical spine dated 12/18/2018. TECHNIQUE: CT scan of the cervical spine is performed from the skull base to the upper thoracic spine. Images are reviewed in the axial, sagittal, and coronal planes. IV contrast was not administered for this examination. A dose lowering technique was utilized adhering to the principles of ALARA. FINDINGS: Skeletal structures: The skeletal structures are osteopenic. There is no evidence of fracture or subluxation involving the cervical spine. Vertebral body height and alignment are maintained. The odontoid process and lateral masses are intact. The atlantoaxial articulation is preserved noting advanced productive degenerative change. Chronic deformity of the spinous processes of C2 is unchanged from prior studies. The spinous processes are otherwise intact. There is moderate multilevel cervical spondylosis. Uncovertebral and facet arthropathy contribute to neural foraminal stenosis at several levels. Intervertebral discs: There is straightening of the cervical lordosis. Anterior osteophytes are seen throughout. There is moderate disc space narrowing seen at C4-C5, C5-C6, and C6-C7 with associated endplate sclerosis. Central canal: Posterior disc osteophyte complexes at C4-C5, C5-C6, and C6-C7 likely contribute to acquired compromise of the central canal. Soft tissues: The prevertebral and paraspinous soft tissues are within normal limits. There is an 8 mm low-attenuation nodule in the right lobe of the thyroid gland. Calvarium: The visualized calvarium at the skull base appears intact. Brain parenchyma: Partially visualized brain parenchyma the skull base is within normal limits. Sinuses and mastoids: The visualized paranasal sinuses are clear. The mastoid air cells are well pneumatized. Lung apices: Clear as visualized. IMPRESSION: 1. There is no evidence of fracture or subluxation involving the cervical spine. 2. Osteopenia and spondylotic change as above. ACT 112: Negative or not required by law. Electronically signed by: Ricki Raza M.D. 07/21/2019 3:[address]AST CT DOSE: 831.29 mGy.cm HISTORY: Altered mental status. Falls. TECHNIQUE: Multiaxial CT images of the head were performed without the use of intravenous contrast. Automated exposure control was utilized for this study. A dose lowering technique was utilized adhering to the principles of ALARA. Comparison: Head CT 12/18/2018. Findings: The paranasal sinuses and mastoid air cells are clear. The calvarium and skull base are intact. There is no mass, hematoma, midline shift, acute infarct. White matter hypodensity is nonspecific but suggestive of microvascular ischemic change. The ventricles and sulci demonstrate mild age-related involutional changes. Impression: No acute intracranial abnormality. Atrophy and microvascular ischemic changes. ACT 112: Negative or not required by law. Electronically signed by: Jose Steinberg M.D. 07/21/2019 3:11 PM AP CHEST WITH ABDOMINAL SERIES CLINICAL HISTORY: Fall. Change in mental status. FINDINGS: An AP upright chest radiograph is compared to study dated 07/03/2017. The examination is degraded by patient rotation. The patient is status post midline sternotomy. The heart is mildly enlarged noting atherosclerotic calcification of the thoracic aorta. The pulmonary vasculature is noncongested. Chronic interstitial thickening is similar to previous. No airspace consolidation or large pleural effusion is identified. No pneumothorax is seen. The skeletal structures are osteopenic. The bony thorax is grossly intact. Supine and erect abdominal radiographs are correlated with abdominal CT dated 07/02/2017. Cholecystectomy clips are noted in the right upper quadrant. There is a nonobstructed abdominal bowel gas pattern. Moderate fecal retention is noted in the colon. No evidence of intraperitoneal free air is seen. There are no abnormal abdominal calcifications. The skeletal structures are osteopenic. The lumbosacral spine and bony pelvis appear intact. There is lumbosacral spondylosis and scoliosis. IMPRESSION: 1. Cardiomegaly with no acute cardiopulmonary abnormality. 2. Nonobstructed abdominal bowel gas pattern. ACT 112: Negative or not required by law. Electronically signed by: Ricki Raza M.D. 07/21/2019 3:36 PM ECG Data Attestation: I personally reviewed and interpreted this ECG as follows: Indication: + altered mental status Rate (beats per minute): 75 Rhythm: + normal sinus ECG Intervals/blocks: + Normal QRS and + Normal QT ECG [place]: + Normal ECG ST segments: + Normal ST segments Additional Comments: baseline artifact noted Blood Pressure Blood Pressure Findings: Elevated blood pressure Blood Pressure Disposition: further management by hospitalist PAULINA Tomlinson This is an ill-appearing female with a complicated past medical history including dialysis brought in due to altered mental status. Patient's reported to EMS that she had been more confused over the last several days and did have several subsequent falls. Physical exam only showed evidence of mild trauma including a contusion to the right upper extremity and abrasions to the right knee. Patient repetitive, clinically dehydrated, significantly hypertensive, with altered mentation here. Patient had labs and imaging performed. No evidence of infectious etiology, intracranial hemorrhage, or CVA. Patient was given a dose of hydralazine here for persistent hypertension and once her blood pressure improved her mentation began to improve slightly also. Due to patient's clinical dehydration she was initially given a 250 mL bolus due to concern for volume status and a renal patient. Patient has been compliant with her dialysis treatments, and is due tomorrow for dialysis. Patient was put on a small amount of maintenance fluids following that and given time in the department I suspect had no more than a total of 500 mL's of fluid. Well hypertensive encephalopathy would seem possible given patient's improvement, I do feel patient requires additional monitoring and evaluation due to her altered mentation. Case discussed with hospitalist for additional evaluation and management. I have a low suspicion for any additional occult traumatic injury. Impression & Plan Altered mental status, Hypertension, CKD (chronic kidney disease) Discharge Plan Visit Data *Final* Discharge Date/Time: 07/21/19 20:35 Chief Complaint: Altered Mental Status Stated Complaint: ams ED Provider: Wendy Mahan Discharge Problem: Altered mental status, Hypertension, CKD (chronic kidney disease) Patient Disposition: Admitted As Inpatient Condition: Fair Discharge Instructions Interventions: ED Discharge Assessment Last Done: 07/21/19 20:35 Discharge Problem: Altered mental status Qualifiers: Altered mental status type: unspecified Qualified Code(s): R41.82 - Altered mental status, unspecified Hypertension Qualifiers: Hypertension type: essential hypertension Qualified Code(s): I10 - Essential (primary) hypertension CKD (chronic kidney disease) Qualifiers: Chronic kidney disease stage: on chronic dialysis Qualified Code(s): N18.6 - End stage renal disease
[2019-07-21 14:43] LABS: Basophils # (auto) 0.01 K/uL (0-0.2); Basophils % (auto) 0.1 %; Eosinophils # (auto) 0.01 K/uL (0-0.5); Eosinophils % (auto) 0.1 %; Hematocrit (blood only) 42.3 % (37-47); Hemoglobin 14.1 g/dL (12.0-16.0); Immature Granulocytes # (auto) 0.02 K/uL (0.00-0.02); Immature Granulocytes % (auto) 0.2 %; Lymphocytes # (auto) 1.13 K/uL (1.2-3.4); Lymphocytes % (auto) 10.6 %; Mean Corpuscular Hemoglobin 29.3 pg (25-34); Mean Corpuscular Hgb Conc 33.3 g/dL (32-36); Mean Corpuscular Volume 87.8 fL (80-100); Mean Platelet Volume 9.2 fL (7.4-10.4); Monocytes # (auto) 0.54 K/uL (0.11-0.59); Monocytes % (auto) 5.1 %; Neutrophils # (auto) 8.92 K/uL (1.4-6.5); Neutrophils % (auto) 83.9 %; Platelet Count 217 K/uL (130-400); RDW Coefficient of Variation 13.7 % (11.5-14.5); RDW Standard Deviation 44.2 fL (36.4-46.3); Red Blood Count 4.82 M/uL (4.2-5.4); White Blood Count 10.63 K/uL (4.8-10.8)
[2019-07-21 14:59] LABS: Prothrombin Time 10.9 Seconds (9.0-12.0)
[2019-07-21] MEDS ORDERED: HydrALAZINE HCL 20 MG/ML VIAL IV STA (15:04)
--- NOTE | 2019-07-21 15:07 | CT Scan Report ---
CT SCAN OF THE CERVICAL SPINE CLINICAL HISTORY: Fall. COMPARISON STUDY: CT of the cervical spine dated 12/18/2018. TECHNIQUE: CT scan of the cervical spine is performed from the skull base to the upper thoracic spine . Images are reviewed in the axial, sagittal, and coronal planes. IV contrast was not administered fo r this examination. A dose lowering technique was utilized adhering to the principles of ALARA. FINDINGS: Skeletal structures: The skeletal structures are osteopenic. There is no evidence of fracture or subl uxation involving the cervical spine. Vertebral body height and alignment are maintained. The odonto id process and lateral masses are intact. The atlantoaxial articulation is preserved noting advanced productive degenerative change. Chronic deformity of the spinous processes of C2 is unchanged from pr ior studies. The spinous processes are otherwise intact. There is moderate multilevel cervical spondy losis. Uncovertebral and facet arthropathy contribute to neural foraminal stenosis at several levels. Intervertebral discs: There is straightening of the cervical lordosis. Anterior osteophytes are seen throughout. There is moderate disc space narrowing seen at C4-C5, C5-C6, and C6-C7 with associated en dplate sclerosis. Central canal: Posterior disc osteophyte complexes at C4-C5, C5-C6, and C6-C7 likely contribute to ac quired compromise of the central canal. Soft tissues: The prevertebral and paraspinous soft tissues are within normal limits. There is an 8 m m low-attenuation nodule in the right lobe of the thyroid gland. Calvarium: The visualized calvarium at the skull base appears intact. Brain parenchyma: Partially visualized brain parenchyma the skull base is within normal limits. Sinuses and mastoids: The visualized paranasal sinuses are clear. The mastoid air cells are well pneu matized. Lung apices: Clear as visualized. IMPRESSION: 1. There is no evidence of fracture or subluxation involving the cervical spine. 2. Osteopenia and spondylotic change as above. ACT 112: Negative or not required by law. Electronically signed by: Ricki Raza M.D. 07/21/2019 3:06 PM
--- NOTE | 2019-07-21 15:08 | Electrocardiogram Report ---
Test Reason : Blood Pressure : / mmHG Vent. Rate : 075 BPM Atrial Rate : 075 BPM P-R Int : 158 ms QRS Dur : 074 ms QT Int : 400 ms P-R-T Axes : 080 066 068 degrees QTc Int : 446 ms Poor data quality, interpretation may be adversely affected Normal sinus rhythm Septal infarct , age undetermined Abnormal ECG When compared with ECG of 18-DEC-2018 10:06, Septal infarct is now Present Confirmed by Bahman Cox ([id number]) on 07/21/2019 3:08:05 PM Referred By: REFERRED SELF Confirmed By:Bahman Cox
[2019-07-21 15:11] LABS: Alanine Aminotransferase 13 U/L (12-78); Albumin Globulin Ratio 0.7 (0.9-2); Albumin Level 3.4 gm/dl (3.4-5.0); Alkaline Phosphatase 158 U/L (45-117); Aspartate Aminotransferase 15 U/L (15-37); BUN Creatinine Ratio 12.5 (10-20); Bilirubin,Total 0.6 mg/dl (0.2-1); Blood Urea Nitrogen 57 mg/dl (7-18); Calcium 9.5 mg/dl (8.5-10.1); Carbon Dioxide 29 mmol/L (21-32); Chloride 98 mmol/L (98-107); Est GFR (African American) 10.6; Est GFR (Non-African American) 9.2; Globulin 4.8 gm/dl (2.5-4.0); Glucose 161 mg/dl (70-99); Lipase 79 U/L (73-393); Magnesium 2.5 mg/dl (1.8-2.4); Phosphorus 6.6 mg/dl (2.5-4.9); Potassium 4.6 mmol/L (3.5-5.1); Sodium 136 mmol/L (136-145); Total Protein 8.2 gm/dl (6.4-8.2)
--- NOTE | 2019-07-21 15:12 | CT Scan Report ---
HEAD CT NONCONTRAST CT DOSE: 831.29 mGy.cm HISTORY: Altered mental status. Falls. TECHNIQUE: Multiaxial CT images of the head were performed without the use of intravenous contrast. A utomated exposure control was utilized for this study. A dose lowering technique was utilized adheri ng to the principles of ALARA. Comparison: Head CT 12/18/2018. Findings: The paranasal sinuses and mastoid air cells are clear. The calvarium and skull base are int act. There is no mass, hematoma, midline shift, acute infarct. White matter hypodensity is nonspecifi c but suggestive of microvascular ischemic change. The ventricles and sulci demonstrate mild age-rela drea involutional changes. Impression: No acute intracranial abnormality. Atrophy and microvascular ischemic changes. ACT 112: Negative or not required by law. Electronically signed by: Jose Steinberg M.D. 07/21/2019 3:11 PM
--- NOTE | 2019-07-21 15:37 | XRay Report ---
AP CHEST WITH ABDOMINAL SERIES CLINICAL HISTORY: Fall. Change in mental status. FINDINGS: An AP upright chest radiograph is compared to study dated 07/03/2017. The examination is degraded by p atient rotation. The patient is status post midline sternotomy. The heart is mildly enlarged noting a therosclerotic calcification of the thoracic aorta. The pulmonary vasculature is noncongested. Chroni c interstitial thickening is similar to previous. No airspace consolidation or large pleural effusion is identified. No pneumothorax is seen. The skeletal structures are osteopenic. The bony thorax is g rossly intact. Supine and erect abdominal radiographs are correlated with abdominal CT dated 07/02/2017. Cholecystect kennedi clips are noted in the right upper quadrant. There is a nonobstructed abdominal bowel gas pattern . Moderate fecal retention is noted in the colon. No evidence of intraperitoneal free air is seen. Th ere are no abnormal abdominal calcifications. The skeletal structures are osteopenic. The lumbosacral spine and bony pelvis appear intact. There is lumbosacral spondylosis and scoliosis. IMPRESSION: 1. Cardiomegaly with no acute cardiopulmonary abnormality. 2. Nonobstructed abdominal bowel gas pattern. ACT 112: Negative or not required by law. Electronically signed by: Ricki Raza M.D. 07/21/2019 3:36 PM
[2019-07-21] MEDS ORDERED: SODIUM CHLORIDE 0.9% 1000ML 1,000 ML IV SCH (16:45)
[2019-07-21 17:29] LABS: Appearance Urine Cloudy (Clear); Bacteria Urine Automated 1+ (Negative); Bilirubin Urine Negative (Negative); Blood Urine Negative (Negative); Color Urine Yellow; Epithelial Cell Urine Auto >30 /lpf (0-5); Glucose Urine UA Negative (Negative); Ketones Urine Trace (Negative); Leukocyte Esterase Urine Trace (Negative); Nitrite Urine Negative (Negative); Protein Urine 2+ (Negative); RBC Urine Automated 0-4 /hpf (0-4); Specific Gravity Urine 1.015 (1.000-1.030); Urobilinogen Urine Negative (Negative); pH Urine 6.5 (4.5-7.5)
[2019-07-21] MEDS ORDERED: cefTRIAXone SODIUM 1,000 MG/50 ML BAG IV STA (19:17)
[2019-07-21] MEDS ORDERED: D5W AND 1/2NSS 1,000 ML IV SCH (19:30)
[2019-07-21] MEDS ORDERED: ONDANSETRON INJ 2 MG/ML 2 ML VIAL IV PRN (19:30)
[2019-07-21] MEDS ORDERED: ACETAMINOPHEN 65 ML IV PRN (19:30)
--- NOTE | 2019-07-21 19:53 | History & Physical Report ---
Date of Service July 21, 2019 Assessment & Plan (1) Altered mental status: -This is a 69 year old patient who follows closely with [facility] nephrology and as per collaborated history from emergency provider, , and scanner supervisor Dr. Evans that patient recently was evaluated as outpatient for respiratory symptoms. An outpatient COVID-19 test was performed on 07/14/2019 with negative results reported on 07/17/2019. Patient then went to completed full dialysis session on Sunday07/19/2019. Then as per on Sunday07/20/2019, patient had poor appetite and vomited with changes to her mental status. Patient was sent to ED by EMS on 07/21/2019. Patient did not have evidence for stroke as per CT head scan and no obvious source of infection or fluid overload - no evidence of pneumonia or pulmonary edema on chest X ray and no acute electrolyte derangements. However, patient was minimally responsive to questions to ED provider. When assessed by hospitalist for admission, patient appears to be able to understand some directions and would say single word responses such as "yes," give affirmative "Uh-huhs", or give vocal sounds to deny pain. Intermittently, her whole body would have spasm which quickly goes away. She was able to follow directions to raise her upper and lower extremities minimally. -MRI Brain without contrast has been completed in the ED on 07/21/2019 and results are pending -treat possible urinary infection with antibiotics -monitor in telemetry, dialysis on 07/22/2019 -does not appear to be able to take oral medications at this time -keep NPO -will need dysphagia screening, speech and swallow evaluation, aspiration precautions -PT/OT assessments History of Stroke in the past -history of stroke 5 years ago as per her , patient had been on oral aspirin and oral clopidogrel -home all oral medications for now until we can ensure she does not aspirate possible urinary tract infection -There is 1 + bacteria in the urine -unlikely that this is the cause of altered mental status, but will treat with ceftriaxone 1 gram daily starting on admission day on 07/21/2019 Hypothyroidism -normal TSH on admission -hold oral levothyroxine for now (2) Hypertension: -given IV hydralazine in the ER. Continue hydralazine as 5 mg IV every 6 hours as needed for systolic blood pressure above 160 -does not appear to be able to take oral medications at this time -hold home diuretics for now -will need dialysis on Sunday07/22/2019, discussed with nephrology service consult Dr. Evans (3) ESRD (end stage renal disease) on dialysis: -is Sunday//Sunday dialysis at [place]. completed full dialysis session on Sunday07/19/2019 -will need dialysis on Sunday07/22/2019, discussed with nephrology service consult Dr. Evans Chronic obstructive pulmonary disease (COPD) -nebulizers prn History of depression -hold home dose sertraline and mirtazipine for now DVT prophylaxis Full Code as per discussion with Elroy Wakefield ([phone]). other family member is son Florian [phone] Marie will be the hospitalist starting on 07/22/2019 History of Present Illness -This is a 69 year old patient who follows closely with [facility] nephrology and as per collaborated history from emergency provider, , and scanner supervisor Dr. Evans that patient recently was evaluated as outpatient for respiratory symptoms. An outpatient COVID-19 test was performed on 07/14/2019 with negative results reported on 07/17/2019. Patient then went to completed full dialysis session on Sunday07/19/2019. Then as per on Sunday07/20/2019, patient had poor appetite and vomited with changes to her mental status. Patient was sent to ED by EMS on 07/21/2019. Patient did not have evidence for stroke as per CT head scan and no obvious source of infection or fluid overload - no evidence of pneumonia or pulmonary edema on chest X ray and no acute electrolyte derangements. However, patient was minimally responsive to questions to ED provider. When assessed by hospitalist for admission, patient appears to be able to understand some directions and would say single word responses such as "yes," give affirmative "Uh-huhs", or give vocal sounds to deny pain. Intermittently, her whole body would have spasm which quickly goes away. She was able to follow directions to raise her upper and lower extremities minimally Family history: patient's denies that there are health conditions that run in her family Primary Care Provider: Ac Mcmanus, DO Allergies Allergy/AdvReac Type Severity Reaction Status Date / Time tomato Allergy Severe Hives Verified 07/21/19 14:34 bee venom protein (honey bee) Allergy Mild MOUTH Verified 07/21/19 14:34 SWELLING Penicillins Allergy Mild RASH Verified 07/21/19 14:34 prednisone Allergy Mild SWELLING Verified 07/21/19 14:34 OG HANDS, ITCHING, RASH rosuvastatin Allergy Mild SEVERE H/A Verified 07/21/19 14:34 Guyfybg-Rrj-Ubs Reductase AdvReac Mild EFFECTED Verified 07/21/19 14:34 Inhibitor LIVER STUDIES Home Medications Home Medications Medication Instructions Recorded Confirmed Type Breo Ellipta 1 inh INHALATION QAM 02/18/18 07/21/19 History albuterol sulfate 2 puff INHALATION QID PRN 02/18/18 07/21/19 History aspirin 81 mg PO QAM 02/18/18 07/21/19 History azelastine 1 spray INTRANASAL QAM 02/18/18 07/21/19 History cholecalciferol (vitamin D3) 1,000 unit PO BID 02/18/18 07/21/19 History clopidogrel [Plavix] 75 mg PO QAM 02/18/18 07/21/19 History cyclobenzaprine 5 mg PO TID PRN 02/18/18 07/21/19 History fluticasone propionate [Flonase 1 spray INTRANASAL DAILY 02/18/18 07/21/19 History Allergy Relief] furosemide [Lasix] 40 mg PO QAM 02/18/18 07/21/19 History levothyroxine 25 mcg PO QAM 02/18/18 07/21/19 History montelukast [Singulair] 10 mg PO HS 02/18/18 07/21/19 History sertraline [Zoloft] 150 mg PO QAM 02/18/18 07/21/19 History hydroxyzine pamoate [Vistaril] 50 mg PO HS 03/26/19 07/21/19 History ondansetron 4 mg PO Q6H PRN 03/26/19 07/21/19 History sevelamer carbonate [Renvela] 800 mg PO TIDM 03/26/19 07/21/19 History suvorexant [Belsomra] 20 mg PO HS 03/26/19 07/21/19 History mirtazapine 30 mg PO HS 07/21/19 07/21/19 History Past Med/Surg History Medical History Anemia Anxiety Asthma Uses albuterol daily. Atrial fibrillation FOLLOWED BY DR. CARROLL AV fistula Depression Diabetes mellitus, type 2 no medications currently -- experiencing hypoglycemia recently. End stage renal disease receiving hemodiaylsis Sunday//Saturdays in [place]. Follows Dr. Ramirez ([place] [place]). Endometriosis stage 4 GERD (gastroesophageal reflux disease) Hyperlipidemia Hypertension no medications currently - experiencing hypotension Hypothyroidism Kidney failure STAGE 4 NO DIALYSIS Migraine Myocardial Infarction 2008 Osteoarthritis Stroke X 2 2014 Surgical History History of abdominal surgery UMBILICAL MESH REMOVED (NECROTIC) History of adenoidectomy History of appendectomy History of martha hole surgery 2013 AFTER CVA TO "REMOVED FLUID" History of cardiac cath 2007 AT [facility] History of cataract surgery RT/LEFT History of section X 3 History of cholecystectomy History of colonoscopy History of coronary artery bypass graft 2007 3 [facility] [place] History of esophagogastroduodenoscopy (EGD) History of herniorrhaphy X 3 REPAIRS History of surgery LEFT FOOT/ANKLE FX REPAIR S/P FALL (HARDWARE) History of tonsillectomy History of tooth extraction History of total abdominal hysterectomy and bilateral salpingo-oophorectomy History of total knee replacement LEFT Hx of hand surgery LEFT HAND SURGERY "TOOK BONES OUT" S/P arteriovenous (AV) fistula creation Left arm S/P panniculectomy Family History Brother Family history of diabetes mellitus Mother Family history of diabetes mellitus Other No family history of adverse response to anesthesia Social History Preferred Language: Cuban Communication Ability: Effective Administrative Personal Assistant Required: No Beliefs That Will Affect Care: None Current Living Situation: Spouse Feels Safe at Home: Yes Smoking Status: Unknown if ever smoked Hx Alcohol Use: No Hx Substance Use: No Review of Systems Review of Systems: Unobtainable due to cognitive status Physical Exam Constitutional: + thin Eyes: PERRL, conjunctivae normal, anicteric sclerae EOM intact bilaterally ENMT: external ear and nose normal, oropharynx normal Neck: normal visual inspection Respiratory: normal respiratory effort, lungs clear to auscultation normal respiratory effort Cardiovascular: Rate/Rhythm: regular rate and regular rhythm Gastrointestinal (Abdomen): normal bowel sounds, soft, nontender, no hepatosplenomegaly Neurologic: When assessed by hospitalist for admission, patient appears to be able to understand some directions and would say single word responses such as "yes," give affirmative "Uh-huhs", or give vocal sounds to deny pain. Intermittently, her whole body would have spasm which quickly goes away. She was able to follow directions to raise her upper and lower extremities minimally. Results & Data Results & Data ([facility]) Vital Signs (Past 12 Hours) Vital Signs Temp Pulse Resp BP Pulse Ox 07/21/19 16:45 85 13 181/100 H 97 07/21/19 16:30 78 19 178/82 H 99 07/21/19 16:15 77 16 170/85 H 99 07/21/19 16:00 74 21 157/74 H 99 07/21/19 15:45 71 14 154/73 H 99 07/21/19 15:30 75 21 174/81 H 100 07/21/19 15:09 71 16 176/93 H 100 07/21/19 14:45 71 16 193/82 H 98 07/21/19 14:08 37.2 C 74 20 223/118 H 93 Code Status & VTE Plan VTE Prophylaxis Plan VTE Prophylaxis will be ordered: Yes (1) Altered mental status Altered mental status type: unspecified Qualified Code(s): R41.82 - Altered mental status, unspecified (2) Hypertension Hypertension type: essential hypertension Qualified Code(s): I10 - Essential (primary) hypertension
--- NOTE | 2019-07-21 20:21 | Magnetic Resonance Report ---
MR brain wo con HISTORY: Mental status change rule out stroke TECHNIQUE: Multiplanar multisequence MRI of the brain was performed without the use of contrast. COMPARISON STUDY: 07/03/2017 FINDINGS: There are no areas of restricted diffusion to suggest acute infarction. The midline structu res are intact. The paranasal sinuses are clear. The mastoid air cells are clear. The ventricles and sulci are within normal limits for age. There is no mass, hematoma, midline shift. The major vascular flow-voids at the skull base are well maintained. This study is compromised due to considerable keri ent motion but is grossly diagnostic. IMPRESSION: No acute intracranial abnormality. No evidence for an acute ischemic event. ACT 112: Negative or not required by law. The above report was generated using voice recognition software. It may contain grammatical, syntax or spelling errors. Electronically signed by: Rad Ackerman M.D. 07/21/2019 8:19 PM
[2019-07-22] MEDS: HydrALAZINE HCL 20 MG/ML VIAL IV PRN ×3 (04:49→22:13)
[2019-07-22 06:57] LABS: Amphetamines+Metham, Urine Neg (Neg); Barbiturates, Urine Neg (Neg); Benzodiazepine, Urine Neg (Neg); Cocaine, Urine Neg (Neg); MDMA (Ecstacy), Urine Neg (Neg); Methadone, Urine Neg (Neg); Opiate, Urine Pos (Neg); Phencyclidine, Urine Neg (Neg)
[2019-07-22] MEDS ORDERED: SODIUM CHLORIDE 0.9% 1000ML 1,000 ML IV PRN (07:40)
[2019-07-22] MEDS ORDERED: HEPARIN SOD (PORCINE) 1000 UNIT/ML 10 ML VIAL IV ONE (07:40)
[2019-07-22] MEDS ORDERED: ASPIRIN 81 MG ECTAB PO SCH (09:00)
[2019-07-22] MEDS ORDERED: FLUTICASONE PROPIONATE NA SPR 16 GM BTL PRN (09:00)
[2019-07-22] MEDS ORDERED: PNEUMOCOCCAL POLYSACCHARIDES 25 MCG/0.5 ML VIAL/SYR IM ONE (09:00)
[2019-07-22] MEDS ORDERED: CLOPIDOGREL BISULFATE 75 MG TAB PO SCH (09:00)
[2019-07-22] MEDS ORDERED: PNEUMOCOCCAL ADMINISTRATION CHARGE ONE (09:00)
[2019-07-22] MEDS ORDERED: INFLUENZA VACCINE HIGH DOSE 65+ 0.5 ML SYR IM ONE (09:00)
[2019-07-22] MEDS ORDERED: INFLUENZA ADMINISTRATION CHARGE ONE (09:00)
[2019-07-22] MEDS: FLUTICASONE/VILANTEROL 100/25MCG 14 PUFFS/INHALER INH SCH (09:16)
[2019-07-22] MEDS: SEVELAMER HCL 800 MG TABLET PO SCH ×3 (09:16→16:40)
--- NOTE | 2019-07-22 15:20 | Hospitalist Progress Note ---
Date of Service July 22, 2019 Assessment & Plan (1) Metabolic encephalopathy: 69 year old female with history of ESRD, HTN, CVA, Depression, COPD Presenting with altered mental status. METABOLIC ENCEPHALOPATHY Likely from UTI - Urine culture: gram negative bacilli - Blood cultures: pending - Brain MRI: no acute CVA - Mental status improved today, able to speak, although mostly confused - Continue Ceftri IV daily, ff up cultures - Monitor closely ESRD - HD per nephro service HYPERTENSION - Elevated - Not on antihypertensive - Hydralazine PRN, monitor BP, may need to start BP medication HISTORY OF CVA - Resume ASA and Plavix, hold if BP is highly elevated DEPRESSION - Not started on any new medications per - Hold Vistaril, Mirtazipine, and Zoloft as well Flexeril until MS continues to improve COPD - Not in exacerbation - Continue Breo DVT prophylaxis - On heparin SC with HD - SCD Disposition - Lives with family discussed case and plan of care with patient's Elroy in detail all questions answered he is understanding, agreeable, comfortable with the plan of care Admission and Anticipated Discharge Date Admission Date: July 21, 2019 Subjective ff up for altered mental status s/p HD this AM seen sitting up in bed, awake, alert oriented to person and place, but mostly confused repetitive with words full ROS difficult to assess due to patient's cognitive status states she feels bad- when asked why, patient states "i'm slobbering", cannot expound more states she has pain all over- can not expound, not in distress at all, no signs of discomfort called patient's Elroy states patient is alert, oriented x 3, coherent at baseline no new medications started Review of Systems Review of Systems: Unobtainable due to cognitive status Physical Exam Physical Exam: General- oriented to person and place, not in distress, speaks in sentences with no effort or accessory muscle use Head- atraumatic Eyes- PERRL, EOMI, anicteric ENT- oropharynx clear Neck- supple, no JVD, no adenopathy, no thyromegaly; carotids +2/2, no bruits appreciated Lungs- clear to auscultation bilaterally, no rales/wheezes Heart- normal rate, regular rhythm; no murmur, no gallop, no rub appreciated Abdomen- normal bowel sounds, nondistended, soft, nontender, no masses or hepatosplenomegaly Extremities- no pretibial edema, no calf tenderness; peripheral pulses intact Neuro- alert, oriented x 2, confused; CN 2-12 grossly intact; motor 5/5 bilaterally;sensation 100% on all extremities; no other gross focal neurologic deficits Skin- warm & dry Results & Data Results & Data ([facility]) Vital Signs (Past 12 Hours) Vital Signs Temp Pulse Pulse Pulse Resp BP BP 07/22/19 14:06 37.3 C 90 20 146/76 H 07/22/19 13:25 36.8 C 89 89 151/71 H 151/71 H 07/22/19 13:20 94 H 121/67 07/22/19 13:00 95 H 96/67 L 07/22/19 12:40 97 H 123/76 07/22/19 12:20 94 H 124/67 07/22/19 12:00 94 H 128/65 07/22/19 11:40 94 H 147/70 H 07/22/19 11:20 94 H 165/73 H 07/22/19 11:00 87 178/86 H 07/22/19 10:40 87 164/76 H 07/22/19 10:33 37.7 C H 87 87 158/80 H 07/22/19 08:00 37.2 C 86 20 161/83 H 07/22/19 04:34 76 188/77 H 07/22/19 04:18 36.5 C Pulse Ox 07/22/19 14:06 97 07/22/19 13:25 07/22/19 13:20 07/22/19 13:00 07/22/19 12:40 07/22/19 12:20 07/22/19 12:00 07/22/19 11:40 07/22/19 11:20 07/22/19 11:00 07/22/19 10:40 07/22/19 10:33 07/22/19 08:00 96 07/22/19 04:34 96 07/22/19 04:18 Laboratory Results Laboratory Results - last 24 hr 07/21/19 07/21/19 07/21/19 14:40 16:45 20:10 POC Glucose Procalcitonin 0.28 Urine Color Yellow Urine Appearance Cloudy A Urine pH 6.5 Ur Specific [place] 1.015 Urine Protein 2+ H Urine Glucose (UA) Negative Urine Ketones Trace H Urine Blood Negative Urine Nitrite Negative Urine Bilirubin Negative Urine Urobilinogen Negative Ur Leukocyte Esterase Trace H Urine WBC (Auto) 5-10 H Urine RBC (Auto) 0-4 U Hyaline Cast (Auto) 1-5 U Epithel Cells (Auto) >30 H Urine Bacteria (Auto) 1+ H Ur Renal Epithelial Cell Not Reportable Nasal Screen MRSA (PCR) Salicylates 2.0 L Urine Opiates Screen U Codeine Confrm GC/MS Ur Morphine (GC/MS) Ur Hydrocodone (GC/MS) Ur Norhydrocodone Ur Noroxycodone Urine Oxycodone (GC/MS) U Oxymorphone GC/MS Ur Methadone, Qual Ur Hydromorphone (GC/MS) Urine Barbiturates Ur Phencyclidine (PCP) U Amphetamin/Meth Scrn MDMA (Ecstasy) Screen U Benzodiazepines Scrn Ur Cocaine Metabolite U Marijuana (THC) Screen U Marijuana THC Carboxy Drug Screen Comment 07/21/19 07/22/19 07/22/19 23:55 04:08 06:30 POC Glucose 157 H 157 H Procalcitonin Urine Color Urine Appearance Urine pH Ur Specific [place] Urine Protein Urine Glucose (UA) Urine Ketones Urine Blood Urine Nitrite Urine Bilirubin Urine Urobilinogen Ur Leukocyte Esterase Urine WBC (Auto) Urine RBC (Auto) U Hyaline Cast (Auto) U Epithel Cells (Auto) Urine Bacteria (Auto) Ur Renal Epithelial Cell Nasal Screen MRSA (PCR) Salicylates Urine Opiates Screen Pos H U Codeine Confrm GC/MS Ur Morphine (GC/MS) Ur Hydrocodone (GC/MS) Ur Norhydrocodone Ur Noroxycodone Urine Oxycodone (GC/MS) U Oxymorphone GC/MS Ur Methadone, Qual Neg Ur Hydromorphone (GC/MS) Urine Barbiturates Neg Ur Phencyclidine (PCP) Neg U Amphetamin/Meth Scrn Neg MDMA (Ecstasy) Screen Neg U Benzodiazepines Scrn Neg Ur Cocaine Metabolite Neg U Marijuana (THC) Screen Pos H U Marijuana THC Carboxy Drug Screen Comment 07/22/19 07/22/19 06:30 Unknown POC Glucose Procalcitonin Urine Color Urine Appearance Urine pH Ur Specific [place] Urine Protein Urine Glucose (UA) Urine Ketones Urine Blood Urine Nitrite Urine Bilirubin Urine Urobilinogen Ur Leukocyte Esterase Urine WBC (Auto) Urine RBC (Auto) U Hyaline Cast (Auto) U Epithel Cells (Auto) Urine Bacteria (Auto) Ur Renal Epithelial Cell Nasal Screen MRSA (PCR) Negative Salicylates Urine Opiates Screen U Codeine Confrm GC/MS Pending Ur Morphine (GC/MS) Pending Ur Hydrocodone (GC/MS) Pending Ur Norhydrocodone Pending Ur Noroxycodone Pending Urine Oxycodone (GC/MS) Pending U Oxymorphone GC/MS Pending Ur Methadone, Qual Ur Hydromorphone (GC/MS) Pending Urine Barbiturates Ur Phencyclidine (PCP) U Amphetamin/Meth Scrn MDMA (Ecstasy) Screen U Benzodiazepines Scrn Ur Cocaine Metabolite U Marijuana (THC) Screen U Marijuana THC Carboxy Pending Drug Screen Comment Pending
--- NOTE | 2019-07-22 15:21 | Nephrology Consultation ---
Date of Consultation July 22, 2019 Assessment & Plan (1) ESRD (end stage renal disease) on dialysis: Today is her routine dialysis today and she tolerated 3 hours and 15 minutes. Unfortunately her set clotted off, so complete 4 hours was not done. I did not feel it was indicated to use supplies for another set up for less than an hour of treatment. We will make this up on treatments later this week. Chemistries and volume status generally acceptable. She tolerated 1.3 L off today. Not anemic Next dialysis treatment tentatively for July 23 or as clinical situation dictates -Continue phosphorus binders -daily bmp Present on Admission?: Yes (2) Hypertension: ongoing elevation; had 5 mg iv hydralazine on hd today; not on antihypertensives as an outpatient -Minimize IV fluids (none running currently)-if NPO ongoing, recommend D5W and not salines at low rate to dastart Present on Admission?: Yes (3) Altered mental status: Per primary service. She is on empiric ceftriaxone for presumptive UTI. However urinalysis more suggestive of skin contamination than of infection. Defer to primary service; await cultures and other work-up. somewhat consistent c/o chest pain and will check ECG; Dr Marie aware. Present on Admission?: Yes History of Present Illness Reason for Consultation: ESRD on dialysis Requesting Physician: Dr. Vega Attending Physician: Clifton Marie MD History of Present Illness 69-year-old female I am asked to evaluate for dialysis needs after she was admitted last evening for valuation of altered mental status. Other medical history includes COPD, reformed tobacco abuse, depression, chronic nausea, atrial fibrillation, remote stroke. She dialyzes under my care Sunday via the fistula at [facility]; she is generally adherent to treatments. Of note she was dialyzing in [place] for the past 3 treatments because she had a fever to 101 and nausea vomiting on July 12; she had a COVID- 19 test performed on advice of her PCP on July 13 which came back negative on July 16. Her last dialysis on July 18 was uneventful. Her called 911 because she woke up on July 19 with nausea vomiting and confusion. Her presentation in the ER was remarkable for limited verbalization, concerning for expressive aphasia. Head CT and brain MRI were unrevealing. No other focal neurologic deficit apart from speech, attention; noted to have occasional whole- body spasm as well. Preliminary evaluation for infectious etiologies also unrevealing. today she remains w/ abnormal mental status. Tox screen + for opiates and for THC, neither of which are customary meds for her. Allergies Allergy/AdvReac Type Severity Reaction Status Date / Time tomato Allergy Severe Hives Verified 07/21/19 14:34 bee venom protein (honey bee) Allergy Mild MOUTH Verified 07/21/19 14:34 SWELLING Penicillins Allergy Mild RASH Verified 07/21/19 14:34 prednisone Allergy Mild SWELLING Verified 07/21/19 14:34 OG HANDS, ITCHING, RASH rosuvastatin Allergy Mild SEVERE H/A Verified 07/21/19 14:34 Exhebjc-Huk-Ckb Reductase AdvReac Mild EFFECTED Verified 07/21/19 14:34 Inhibitor LIVER STUDIES Home Medications Home Medications Medication Instructions Recorded Confirmed Type Breo Ellipta 1 inh INHALATION QAM 02/18/18 07/21/19 History albuterol sulfate 2 puff INHALATION QID PRN 02/18/18 07/21/19 History aspirin 81 mg PO QAM 02/18/18 07/21/19 History azelastine 1 spray INTRANASAL QAM 02/18/18 07/21/19 History cholecalciferol (vitamin D3) 1,000 unit PO BID 02/18/18 07/21/19 History clopidogrel [Plavix] 75 mg PO QAM 02/18/18 07/21/19 History cyclobenzaprine 5 mg PO TID PRN 02/18/18 07/21/19 History fluticasone propionate [Flonase 1 spray INTRANASAL DAILY 02/18/18 07/21/19 History Allergy Relief] furosemide [Lasix] 40 mg PO QAM 02/18/18 07/21/19 History levothyroxine 25 mcg PO QAM 02/18/18 07/21/19 History montelukast [Singulair] 10 mg PO HS 02/18/18 07/21/19 History sertraline [Zoloft] 150 mg PO QAM 02/18/18 07/21/19 History hydroxyzine pamoate [Vistaril] 50 mg PO HS 03/26/19 07/21/19 History ondansetron 4 mg PO Q6H PRN 03/26/19 07/21/19 History sevelamer carbonate [Renvela] 800 mg PO TIDM 03/26/19 07/21/19 History suvorexant [Belsomra] 20 mg PO HS 03/26/19 07/21/19 History mirtazapine 30 mg PO HS 07/21/19 07/21/19 History Patient History Medical History Anemia Anxiety Asthma Uses albuterol daily. Atrial fibrillation FOLLOWED BY DR. CARROLL AV fistula Depression Diabetes mellitus, type 2 no medications currently -- experiencing hypoglycemia recently. End stage renal disease receiving hemodiaylsis Sunday//S[place] in [place]. Follow[place] Dr. Ramirez ([place]). Endometriosis stage 4 GERD (gastroesophageal reflux disease) Hyperlipidemia Hypertension no medications currently - experiencing hypotension Hypothyroidism Kidney failure STAGE 4 NO DIALYSIS Migraine Myocardial Infarction 2008 Osteoarthritis Stroke X 2 2013 Surgical History History of abdominal surgery UMBILICAL MESH REMOVED (NECROTIC) History of adenoidectomy History of appendectomy History of martha hole surgery 2013 AFTER CVA TO "REMOVED FLUID" History of cardiac cath 2007 AT [facility] History of cataract surgery RT/LEFT History of section X 3 History of cholecystectomy History of colonoscopy History of coronary artery bypass graft 2007 3 [facility] History of esophagogastroduodenoscopy (EGD) History of herniorrhaphy X 3 REPAIRS History of surgery LEFT FOOT/ANKLE FX REPAIR S/P FALL (HARDWARE) History of tonsillectomy History of tooth extraction History of total abdominal hysterectomy and bilateral salpingo-oophorectomy History of total knee replacement LEFT Hx of hand surgery LEFT HAND SURGERY "TOOK BONES OUT" S/P arteriovenous (AV) fistula creation Left arm S/P panniculectomy Family History Brother Family history of diabetes mellitus Mother Family history of diabetes mellitus Other No family history of adverse response to anesthesia Social History Preferred Language: Romansh Communication Ability: Impaired Channel Sales Director Required: No Beliefs That Will Affect Care: None Current Living Situation: Spouse Current Living Situation Comment: unable to respond Feels Safe at Home: Yes Smoking Status: Unknown if ever smoked Hx Alcohol Use: No Hx Substance Use: No Review of Systems Review of Systems: Limited d/t Mental health/reduced consciousness Constitutional: no fever and no body aches Respiratory: no cough and no dyspnea Cardiovascular: + chest pain and + chest pain at rest Gastrointestinal: as per Subjective / HPI, + abdominal pain, + nausea and + vomiting Neurologic: + seizure-like activity Physical Exam Constitutional: well developed, + thin, + altered mental status, + frail appearing and cooperative on RA in bed Eyes: EOM intact bilaterally ENMT: Ears: no external ear abnormality Nose: no external nose abnormality Mouth: + dry oral mucous membranes Neck: no nuchal rigidity Respiratory: normal respiratory effort and able to speak in complete sentences; no paradoxical thoraco-abdominal movemnt Auscultation: lungs clear to auscultation bilaterally and + diminished lung sounds Cardiovascular: Rate/Rhythm: regular rate and regular rhythm Extremities: + AV fistula (+ t/b); no edema chest pain reproducible mid /peristernum Gastrointestinal (Abdomen): Inspection/Auscultation: normal bowel sounds Percussion/Palpation: + abdomen tender (diffuse BLUQ) and abdomen soft; no guarding and abdomen not rigid Musculoskeletal: Extremities: strength 5/5 throughout Skin: no rashes, warm and dry + turgor decreased Neurologic: awake and + confused Speech / Cognition: + abnormal speech de paz, no tremor Psychiatric: Orientation: alert and oriented to person Eye Contact: good eye contact Motor Behavior: + psychomotor agitation and + psychomotor retardation Speech: + loud speech Thought Process: + looseness of associations Genitourinary: cutler w/ scant urine Results & Data Vital Signs (Past 12 Hours) Vital Signs Temp Pulse Pulse Pulse Resp BP BP 07/22/19 14:06 37.3 C 90 20 146/76 H 07/22/19 13:25 36.8 C 89 89 151/71 H 151/71 H 07/22/19 13:20 94 H 121/67 07/22/19 13:00 95 H 96/67 L 07/22/19 12:40 97 H 123/76 07/22/19 12:20 94 H 124/67 07/22/19 12:00 94 H 128/65 07/22/19 11:40 94 H 147/70 H 07/22/19 11:20 94 H 165/73 H 07/22/19 11:00 87 178/86 H 07/22/19 10:40 87 164/76 H 07/22/19 10:33 37.7 C H 87 87 158/80 H 07/22/19 08:00 37.2 C 86 20 161/83 H 07/22/19 04:34 76 188/77 H 07/22/19 04:18 36.5 C Pulse Ox 07/22/19 14:06 97 07/22/19 13:25 07/22/19 13:20 07/22/19 13:00 07/22/19 12:40 07/22/19 12:20 07/22/19 12:00 07/22/19 11:40 07/22/19 11:20 07/22/19 11:00 07/22/19 10:40 07/22/19 10:33 07/22/19 08:00 96 07/22/19 04:34 96 07/22/19 04:18 Laboratory Results 07/21/19 14:33 07/21/19 14:33 Diagnostic Findings Head and cervical spine CTs as well as brain MRI and chest abdominal x-rays all reviewed. (1) Altered mental status Altered mental status type: unspecified Qualified Code(s): R41.82 - Altered mental status, unspecified (2) Hypertension Hypertension type: essential hypertension Qualified Code(s): I10 - Essential (primary) hypertension
[2019-07-22] MEDS: CLOPIDOGREL BISULFATE 75 MG TAB PO SCH (16:40)
[2019-07-22] MEDS: ASPIRIN 81 MG ECTAB PO SCH (16:40)
[2019-07-22] MEDS: MONTELUKAST SODIUM 10 MG TABLET PO SCH (21:28)
[2019-07-22] MEDS: cefTRIAXone SODIUM 1,000 MG/50 ML BAG IV SCH (21:31)
[2019-07-23] MEDS: LEVOTHYROXINE SODIUM 25 MCG TABLET PO SCH (05:43)
[2019-07-23 06:20] LABS: BUN Creatinine Ratio 11.6 (10-20); Blood Urea Nitrogen 43 mg/dl (7-18); Calcium 9.3 mg/dl (8.5-10.1); Chloride 101 mmol/L (98-107); Creatinine Clr Calc Pharmacy 12.3 ml/min; Est GFR (African American) 13.7; Est GFR (Non-African American) 11.8; Glucose 180 mg/dl (70-99); Sodium 139 mmol/L (136-145)
[2019-07-23 06:27] LABS: Potassium 3.9 mmol/L (3.5-5.1)
[2019-07-23] MEDS: FLUTICASONE/VILANTEROL 100/25MCG 14 PUFFS/INHALER INH SCH (08:19)
[2019-07-23] MEDS: CLOPIDOGREL BISULFATE 75 MG TAB PO SCH (08:19)
[2019-07-23] MEDS: ASPIRIN 81 MG ECTAB PO SCH (08:19)
[2019-07-23] MEDS: SEVELAMER HCL 800 MG TABLET PO SCH ×3 (08:20→16:54)
[2019-07-23] MEDS: HEPARIN SOD (PORCINE) 1000 UNIT/ML 10 ML VIAL IV SCH (10:32)
--- NOTE | 2019-07-23 12:06 | Nephrology Progress Note ---
Date of Service July 23, 2019 Assessment & Plan (1) ESRD (end stage renal disease) on dialysis: Yesterday for dialysis she tolerated 3 hours and 15 minutes. Unfortunately her set clotted off, so complete 4 hours was not done. I did not feel it was indicated to use supplies for another set up for less than an hour of treatment. We will make this up on treatments later this week. Chemistries and volume status generally acceptable. She tolerated 1.3 L off yesterday. Not anemic Next dialysis treatment tentatively for July 23 or as clinical situation dictates -Continue phosphorus binders -daily bmp (2) Hypertension: ongoing elevation; had 5 mg iv hydralazine on hd today; not on antihypertensives as an outpatient -Minimize IV fluids -Started metoprolol 12.5 mg twice daily, first dose now with hold parameters; hope she will not need this at discharge ->>>> Defer to primary service to evaluate echo and question ECG changes from yesterday; today no symptoms however she is also more confused today (3) Altered mental status: Per primary service. She is on empiric ceftriaxone for presumptive UTI. However urinalysis more suggestive of skin contamination than of infection; still with altered mental status not unreasonable to treat. order in to remove Meade. Defer to primary service on abtx; await cultures and other work-up. History of patent PFO noted Did discuss with hospitalist consideration of resuming antidepressant Admission and Anticipated Discharge Date Admission Date: July 21, 2019 Subjective No complaints of uncontrolled pain, though she states that she still has a headache. Also complains of hunger: Has been evaluated by speech and for diet to start with midday meal. Oriented to self. Review of Systems Review of Systems: Unobtainable due to mental health condition and Unobtainab le due to cognitive status Limited review of systems as follows: No shortness of breath, no chest pain today, no nausea Physical Exam Constitutional: well developed, + thin, + altered mental status, + frail appearing and cooperative On room air Eyes: EOM intact bilaterally ENMT: Ears: no external ear abnormality Nose: no external nose abnormality Mouth: + dry oral mucous membranes Neck: no nuchal rigidity Respiratory: normal respiratory effort and able to speak in complete sentences; no paradoxical thoraco-abdominal movemnt Auscultation: lungs clear to auscultation bilaterally and + diminished lung sounds Cardiovascular: Rate/Rhythm: regular rate and regular rhythm Extremities: + AV fistula (+ t/b); no edema Gastrointestinal (Abdomen): Inspection/Auscultation: normal bowel sounds Percussion/Palpation: abdomen soft; abdomen nontender, no guarding and abdomen not rigid Musculoskeletal: Extremities: strength 5/5 throughout Skin: no rashes, warm and dry + turgor decreased Neurologic: awake and + confused Speech / Cognition: + abnormal speech Cranial Nerves: able to rotate head bilaterally Psychiatric: Orientation: alert and oriented to person Eye Contact: good eye contact Motor Behavior: + psychomotor agitation and + psychomotor retardation Speech: + loud speech Thought Process: + looseness of associations Hallucinations: + auditory hallucinations and + visual hallucinations Genitourinary: Meade with scant urine Results & Data ([facility]) Vital Signs (Past 12 Hours) Vital Signs Temp Pulse Pulse Resp BP Pulse Ox 07/23/19 11:45 37.2 C 86 18 169/76 H 95 07/23/19 08:00 91 H 07/23/19 07:44 37.1 C 85 17 158/82 H 94 07/23/19 04:01 37.2 C 87 20 132/81 92 Laboratory Results 07/21/19 14:33 07/23/19 04:58 (1) Hypertension Hypertension type: essential hypertension Qualified Code(s): I10 - Essential (primary) hypertension (2) Altered mental status Altered mental status type: unspecified Qualified Code(s): R41.82 - Altered mental status, unspecified
[2019-07-23] MEDS: METOPROLOL TARTRATE 25 MG TAB PO SCH ×2 (13:01→20:20)
[2019-07-23] MEDS ORDERED: ALBUTEROL HFA INHALER 8.5 GM INH PRN (14:00)
--- NOTE | 2019-07-23 14:13 | Electrocardiogram Report ---
Test Reason : Blood Pressure : / mmHG Vent. Rate : 089 BPM Atrial Rate : 089 BPM P-R Int : 148 ms QRS Dur : 072 ms QT Int : 354 ms P-R-T Axes : 055 034 -03 degrees QTc Int : 430 ms Normal sinus rhythm Possible Left atrial enlargement Cannot rule out Anterior infarct (cited on or before 21-JUL-2019) T wave abnormality, consider inferior ischemia Abnormal ECG When compared with ECG of 21-JUL-2019 14:20, Questionable change in initial forces of Septal leads T wave inversion now evident in Inferior leads Confirmed by Bahman Cox ([id number]) on 07/23/2019 2:12:52 PM Referred By: REFERRED SELF Confirmed By:Bahman Cox
--- NOTE | 2019-07-23 15:46 | Hospitalist Progress Note ---
Date of Service July 23, 2019 Assessment & Plan (1) Metabolic encephalopathy: 69 year old female with history of ESRD, HTN, CVA, Depression, COPD Presenting with altered mental status. METABOLIC ENCEPHALOPATHY Likely from UTI - Urine culture: gram negative bacilli - negative - Brain MRI: no acute CVA - remains mostly confused - Continue Ceftri IV daily, ESRD cont HD per nephro service HYPERTENSION - monitor HISTORY OF CVA - Resume ASA and Plavix, DEPRESSION - Not started on any new medications per - Hold Vistaril-as pt remains confused Mirtazipine, and Zoloft resumed COPD - Not in exacerbation - Continue Breo DVT prophylaxis - On heparin SC with HD - SCD Disposition - Lives with family ordered for PT/OT eval plan to dc home with when medically stable Admission and Anticipated Discharge Date Admission Date: July 21, 2019 Subjective pt is talking to herself oriented to person only no cough or SOB no auditory or visual hallucination very poor insight regarding her health not aware that she is in hospital wants to go home as soon as possible vitals remains stable Review of Systems Review of Systems: Unobtainable due to mental health condition (confused ) Physical Exam Constitutional: WD/WN, vitals as above + ill appearing; no acute distress Eyes: + anicteric sclerae Respiratory: normal respiratory effort; no respiratory distress Auscultation: no crackles, no rales, no rhonchi and no wheezes Cardiovascular: RRR, no murmur, no edema Gastrointestinal (Abdomen): Percussion/Palpation: abdomen soft; abdomen nontender Neurologic: PERRL, EOMI, accommodation nl, no face palsy, no dysarthria Psychiatric: Orientation: alert; + not oriented x 3 Cognition: + recent memory not intact and + remote memory not intact Insight: + poor insight Results & Data Results & Data ([facility]) Vital Signs (Past 12 Hours) Vital Signs Temp Pulse Pulse Pulse Resp BP BP 07/23/19 15:28 36.9 C 67 20 173/81 H 07/23/19 14:12 69 07/23/19 13:34 36.7 C 75 20 171/79 H 07/23/19 11:45 37.2 C 86 18 169/76 H 07/23/19 08:00 91 H 07/23/19 07:44 37.1 C 85 17 158/82 H 07/23/19 04:01 37.2 C 87 20 132/81 Pulse Ox 07/23/19 15:28 97 07/23/19 14:12 07/23/19 13:34 97 07/23/19 11:45 95 07/23/19 08:00 07/23/19 07:44 94 07/23/19 04:01 92
[2019-07-23] MEDS: HydrALAZINE HCL 20 MG/ML VIAL IV PRN (16:53)
[2019-07-23] MEDS: cefTRIAXone SODIUM 1,000 MG/50 ML BAG IV SCH (20:20)
[2019-07-23] MEDS: MIRTAZAPINE TAB 15 MG TAB PO SCH (20:20)
[2019-07-23] MEDS: MONTELUKAST SODIUM 10 MG TABLET PO SCH (20:21)
[2019-07-23] MEDS: CHOLECALCIFEROL 1,000 UNITS 25 MCG TAB PO SCH (20:22)
[2019-07-24] MEDS: LEVOTHYROXINE SODIUM 25 MCG TABLET PO SCH (05:55)
[2019-07-24 08:14] LABS: Codeine Urine NEGATIVE ng/mL (<50); Hydrocodone Urine NEGATIVE ng/mL (<50); Hydromor Urine 424 ng/mL (<50); Marijuana Quant, GCMS Urine 13 ng/mL (<5); Morphine Urine >10000 ng/mL (<50); Norhydrocodone Conf Ur NEGATIVE ng/mL (<50); Noroxycodone Urine NEGATIVE ng/mL (<50); Oxycodone Urine NEGATIVE ng/mL (<50); Oxymorph Urine NEGATIVE ng/mL (<50)
[2019-07-24] MEDS ORDERED: SODIUM CHLORIDE 0.9% 1000ML 1,000 ML IV PRN (08:57)
[2019-07-24] MEDS: HydrALAZINE HCL 20 MG/ML VIAL IV PRN ×2 (09:21→23:55)
[2019-07-24] MEDS: CLOPIDOGREL BISULFATE 75 MG TAB PO SCH (09:26)
[2019-07-24] MEDS: FUROSEMIDE 40 MG TAB PO SCH (09:26)
[2019-07-24] MEDS: CHOLECALCIFEROL 1,000 UNITS 25 MCG TAB PO SCH ×2 (09:26→19:35)
[2019-07-24] MEDS: ASPIRIN 81 MG ECTAB PO SCH (09:26)
[2019-07-24] MEDS: FLUTICASONE PROPIONATE NA SPR 16 GM BTL NAE SCH (09:26)
[2019-07-24] MEDS: METOPROLOL TARTRATE 25 MG TAB PO SCH ×2 (09:26→19:34)
[2019-07-24] MEDS: FLUTICASONE/VILANTEROL 100/25MCG 14 PUFFS/INHALER INH SCH (09:26)
[2019-07-24] MEDS: SEVELAMER HCL 800 MG TABLET PO SCH ×3 (09:26→18:03)
[2019-07-24] MEDS: SERTRALINE HCL 50 MG TABLET PO SCH (09:26)
--- NOTE | 2019-07-24 11:35 | Nephrology Progress Note ---
Date of Service July 24, 2019 Assessment & Plan (1) ESRD (end stage renal disease) on dialysis: On July 21 for dialysis she tolerated 3 hours and 15 minutes. Unfortunately her set clotted off, so complete 4 hours was not done. I did not feel it was indicated to use supplies for another set up for less than an hour of treatment. We will make this up on treatments later this week. Chemistries and volume status generally acceptable. She tolerated 1.3 L off at last treatment. Not anemic Next dialysis treatment tentatively for today or as clinical situation dictates -Continue phosphorus binders -bmp for tomorrow (2) Hypertension: ongoing elevation; had 5 mg iv hydralazine on hd today; not on antihypertensives as an outpatient -Minimize IV fluids -CONTINUE metoprolol 12.5 mg twice daily, with hold parameters; hope she will not need this at discharge ->>>> Defer to primary service to evaluate echo and question ECG changes from 07/21; today no symptoms however she is also more confused today (3) Altered mental status: Per primary service; no clear cause. She is on empiric ceftriaxone for presumptive UTI. However urinalysis more suggestive of skin contamination than of infection; still with altered mental status not unreasonable to treat. History of patent PFO noted agree w/ resuming antidepressant -low threshold for psych consultation - pt w/ significant depression hx; no dep ression here overtly but some psychosis (hallucinations) and paranoia; more than likely will be deemed metabolic however ?worth checking ammonia level or ABG? -repeat bmp and cbc for tomorrow Admission and Anticipated Discharge Date Admission Date: July 21, 2019 Subjective No complaints of uncontrolled pain, shortness of breath, nausea or GI upset. Difficult to get history or ROS from the patient because She exclaims continuously in a loud voice about virus being in the room, and her bottled water, behind my face shield Review of Systems Review of Systems: Unobtainable due to cognitive status Physical Exam Constitutional: well developed, + thin, + altered mental status and + frail appearing; + uncooperative Eyes: EOM intact bilaterally ENMT: Ears: no external ear abnormality Nose: no external nose abnormality Mouth: + dry oral mucous membranes Neck: no nuchal rigidity Respiratory: normal respiratory effort and able to speak in complete sentences; no paradoxical thoraco-abdominal movemnt Auscultation: lungs clear to auscultation bilaterally and + diminished lung sounds Cardiovascular: Rate/Rhythm: regular rate and regular rhythm Extremities: + AV fistula (+ t/b); no edema Gastrointestinal (Abdomen): Inspection/Auscultation: normal bowel sounds Percussion/Palpation: abdomen soft; abdomen nontender, no guarding and abdomen not rigid Musculoskeletal: Extremities: strength 5/5 throughout Skin: no rashes, warm and dry + turgor decreased Neurologic: awake and + confused Speech / Cognition: + abnormal speech Cranial Nerves: able to rotate head bilaterally Psychiatric: Orientation: alert and oriented to person Eye Contact: good eye contact Motor Behavior: + psychomotor agitation and + psychomotor retardation Speech: + loud speech Thought Process: + looseness of associations Results & Data ([facility]) Vital Signs (Past 12 Hours) Vital Signs Temp Pulse Pulse Pulse Resp BP Pulse Ox 07/24/19 07:09 37.0 C 72 18 178/80 H 96 07/24/19 04:50 36.7 C 73 20 175/78 H 96 07/24/19 00:41 67 07/23/19 23:53 36.3 C L 69 20 176/83 H 96 Laboratory Results 07/21/19 14:33 07/23/19 04:58 (1) Hypertension Hypertension type: essential hypertension Qualified Code(s): I10 - Essential (primary) hypertension (2) Altered mental status Altered mental status type: unspecified Qualified Code(s): R41.82 - Altered mental status, unspecified
[2019-07-24] MEDS ORDERED: HALOPERIDOL LACTATE 5 MG/ML 1 ML VIAL IM STA (12:32)
[2019-07-24] MEDS ORDERED: QUETIAPINE FUMARATE 25 MG TABLET PO PRN (12:39)
--- NOTE | 2019-07-24 12:40 | Hospitalist Progress Note ---
Date of Service July 24, 2019 Assessment & Plan (1) Metabolic encephalopathy: JACKELIN PARANOIA /DELUSIONAL : pt is very agitated and paranoid /severe behavioral disturbance very combative /yelling , throwing things possible underlying Psychiatric disorder vs dementia causing hospital induced delirium ? ordered for PRN Serquel Trazodone HS Psych consulted for medication recommendation -acute delirium METABOLIC ENCEPHALOPATHY admitted with lathergy /difficult to arouse symptom has resolved pt is awake , hypervigillent , combative with Psychosis as outlined above Brain MRI: no acute CVA UTI: - Urine culture: gram negative bacilli/E coli /Lactobacillus on Rocephin no fever or chills ,normal white count doubt current state of agitation due to UTI on IV rocephin will change to pO prior to dc , total 5 days of tx will be sufficient ESRD cont HD per nephro service HISTORY OF CVA - on ASA and Plavix, no evidence of acute stroke noted in MRI of brain DEPRESSION - Not started on any new medications per - Hold Vistaril-as pt remains confused Mirtazipine, and Zoloft resumed added serquel PRN and Trazodin hs Psych eval requested for Psychosis /paranoid behaviour DVT prophylaxis - On heparin SC with HD - SCD Disposition - need continued hospital stay for altered mental status /combativeness Admission and Anticipated Discharge Date Admission Date: July 21, 2019 Subjective very confused /agitated today spitting at nursing yelling , very combative paranoid with visual hallucination vitals been stable no fever or chills no evidence of electrolyte abnormality given dose of IM haldol pt appears to be more calm afterwards insight , orientation remains poor Review of Systems Review of Systems: All systems reviewed & are unremarkable except as noted in HPI & below and Unobtainable due to mental health condition (paranoid /confused ) Physical Exam Constitutional: WD/WN, vitals as above + ill appearing; no acute distress Eyes: + anicteric sclerae Respiratory: normal respiratory effort; no respiratory distress Auscultatio n: no crackles, no rales, no rhonchi and no wheezes Cardiovascular: RRR, no murmur, no edema Gastrointestinal (Abdomen): Percussion/Palpation: abdomen soft; abdomen nontender Psychiatric: Orientation: alert; + not oriented x 3 Affect: + labile affect Hallucinations: + visual hallucinations Cognition: + recent memory not intact and + remote memory not intact Insight: + poor insight paranoid /combative Results & Data Results & Data ([facility]) Vital Signs (Past 12 Hours) Vital Signs Temp Pulse Pulse Pulse Resp BP Pulse Ox 07/24/19 08:30 69 07/24/19 07:09 37.0 C 72 18 178/80 H 96 07/24/19 04:50 36.7 C 73 20 175/78 H 96 07/24/19 00:41 67
[2019-07-24] MEDS ORDERED: HALOPERIDOL LACTATE 5 MG/ML 1 ML VIAL IM PRN (13:31)
[2019-07-24] MEDS: cefTRIAXone SODIUM 1,000 MG/50 ML BAG IV SCH (19:33)
[2019-07-24] MEDS: MONTELUKAST SODIUM 10 MG TABLET PO SCH (19:34)
[2019-07-24] MEDS: TRAZODONE HCL 50 MG TAB PO SCH (19:34)
[2019-07-24] MEDS: MIRTAZAPINE TAB 15 MG TAB PO SCH (19:35)
[2019-07-25] MEDS: LEVOTHYROXINE SODIUM 25 MCG TABLET PO SCH (05:32)
[2019-07-25 06:55] LABS: Basophils # (auto) 0.02 K/uL (0-0.2); Basophils % (auto) 0.2 %; Eosinophils # (auto) 0.09 K/uL (0-0.5); Eosinophils % (auto) 1.1 %; Hematocrit (blood only) 36.9 % (37-47); Hemoglobin 12.2 g/dL (12.0-16.0); Immature Granulocytes # (auto) 0.03 K/uL (0.00-0.02); Immature Granulocytes % (auto) 0.4 %; Lymphocytes # (auto) 1.92 K/uL (1.2-3.4); Lymphocytes % (auto) 23.1 %; Mean Corpuscular Hemoglobin 28.8 pg (25-34); Mean Corpuscular Hgb Conc 33.1 g/dL (32-36); Mean Platelet Volume 9.2 fL (7.4-10.4); Monocytes # (auto) 0.64 K/uL (0.11-0.59); Monocytes % (auto) 7.7 %; Neutrophils # (auto) 5.62 K/uL (1.4-6.5); Neutrophils % (auto) 67.5 %; Platelet Count 205 K/uL (130-400); RDW Coefficient of Variation 13.4 % (11.5-14.5); RDW Standard Deviation 42.6 fL (36.4-46.3); Red Blood Count 4.24 M/uL (4.2-5.4); White Blood Count 8.32 K/uL (4.8-10.8)
[2019-07-25] MEDS: FLUTICASONE PROPIONATE NA SPR 16 GM BTL NAE SCH (07:11)
[2019-07-25] MEDS: FLUTICASONE/VILANTEROL 100/25MCG 14 PUFFS/INHALER INH SCH (07:11)
[2019-07-25] MEDS: ASPIRIN 81 MG ECTAB PO SCH (07:11)
[2019-07-25] MEDS: CLOPIDOGREL BISULFATE 75 MG TAB PO SCH (07:12)
[2019-07-25] MEDS: CHOLECALCIFEROL 1,000 UNITS 25 MCG TAB PO SCH ×2 (07:13→20:18)
[2019-07-25] MEDS: SEVELAMER HCL 800 MG TABLET PO SCH ×3 (07:14→18:00)
[2019-07-25] MEDS: SERTRALINE HCL 50 MG TABLET PO SCH (07:14)
[2019-07-25 07:20] LABS: BUN Creatinine Ratio 17.7 (10-20); Calcium 8.6 mg/dl (8.5-10.1); Creatinine Clr Calc Pharmacy 11.4 ml/min; Est GFR (African American) 12.6; Est GFR (Non-African American) 10.9; Potassium 3.7 mmol/L (3.5-5.1)
[2019-07-25] MEDS: METOPROLOL TARTRATE 25 MG TAB PO SCH ×2 (09:17→20:17)
[2019-07-25] MEDS: FUROSEMIDE 40 MG TAB PO SCH (09:17)
[2019-07-25] MEDS ORDERED: SODIUM CHLORIDE 0.9% 1000ML 1,000 ML IV PRN (10:03)
[2019-07-25] MEDS ORDERED: HEPARIN SOD (PORCINE) 1000 UNIT/ML 10 ML VIAL IV SCH (10:30)
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
--- NOTE | 2019-07-25 13:17 | Dialysis Progress Note ---
Date of Service July 25, 2019 Assessment & Plan (1) ESRD (end stage renal disease) on dialysis: On July 21 for dialysis she tolerated 3 hours and 15 minutes. Unfortunately her set clotted off, so complete 4 hours was not done. I did not feel it was indicated to use supplies for another set up for less than an hour of treatment. We will make this up on treatments later this week. she became agitated yesterday and tx stopped after 3 h. Chemistries and volume status generally acceptable. bp very elevated. Not anemic Next dialysis treatment tomorrow after 2.5 hr today w/ goal uf 2.5-3L -Continue phosphorus binders -bmp for tomorrow (2) Hypertension: ongoing elevation; not on antihypertensives as an outpatient -Minimize IV fluids -CONTINUE metoprolol 12.5 mg twice daily, with hold parameters; hope she will not need this at discharge -aggressive uf today w/ HD ->>>> Defer to primary service to evaluate echo and question ECG changes from 07/21; today no symptoms however she is also more confused today (3) Altered mental status: Per primary service; no clear cause. She is on empiric ceftriaxone for presumptive UTI. However urinalysis more suggestive of skin contamination than of infection; still with altered mental status not unreasonable to treat. History of patent PFO noted cont antidepressant -f/u psych consultation - pt w/ significant depression hx; no depression here ov ertly but some psychosis (hallucinations) and paranoia; more than likely will be deemed metabolic however ?worth checking ammonia level or ABG? -repeat bmp and cbc for tomorrow Subjective doing better today >> less shouting, fewer hallucinations; no sob or CARL or chest pain; still confused - does not recognize me, does not realize pt shares shift w/ her Review of Systems Review of Systems: All systems reviewed & are unremarkable except as noted in HPI & below Physical Exam Constitutional: well developed, + thin, + altered mental status, + frail appearing and cooperative Eyes: EOM intact bilaterally ENMT: Ears: no external ear abnormality Nose: no external nose abnormality Mouth: + dry oral mucous membranes Neck: no nuchal rigidity Respiratory: normal respiratory effort and able to speak in complete sentences; no paradoxical thoraco-abdominal movemnt Auscultation: lungs clear to auscultation bilaterally and + diminished lung sounds Cardiovascular: Rate/Rhythm: regular rate and regular rhythm Extremities: + AV fistula (+ t/b); no edema Gastrointestinal (Abdomen): Inspection/Auscultation: normal bowel sounds Percussion/Palpation: abdomen soft; abdomen nontender, no guarding and abdomen not rigid Musculoskeletal: Extremities: strength 5/5 throughout Skin: no rashes, warm and dry + turgor decreased Neurologic: awake and + confused Speech / Cognition: + abnormal speech Cranial Nerves: able to rotate head bilaterally Psychiatric: Orientation: alert and oriented to person Eye Contact: good eye contact Motor Behavior: + psychomotor retardation Speech: normal rate/rhythm/volume of speech Thought Process: + looseness of associations Results & Data Vital Signs (Past 12 Hours) Vital Signs Temp Pulse Resp BP Pulse Ox 07/25/19 08:09 36.7 C 85 18 207/95 H 99 (1) Hypertension Hypertension type: essential hypertension Qualified Code(s): I10 - Essential (primary) hypertension (2) Altered mental status Altered mental status type: unspecified Qualified Code(s): R41.82 - Altered mental status, unspecified
[2019-07-25] MEDS: HydrALAZINE HCL 20 MG/ML VIAL IV PRN (15:52)
--- NOTE | 2019-07-25 18:11 | Hospitalist Progress Note ---
Date of Service July 25, 2019 Assessment & Plan (1) Metabolic encephalopathy: JACKELIN PARANOIA /DELUSIONAL : symptom has resolved very calm , pleasant and appropriate today METABOLIC ENCEPHALOPATHY admitted with lathergy /difficult to arouse symptom has resolved was , combative with Psychosis for past 2 days symptoms has resolved Brain MRI: no acute CVA UTI: - Urine culture: gram negative bacilli/E coli /Lactobacillus no fever or chills ,normal white count on IV rocephin will change to pO prior to dc , total 5 days of tx will be sufficient ESRD unable to have dialysis as fistula got infiltrated HISTORY OF CVA - on ASA and Plavix, no evidence of acute stroke noted in MRI of brain DEPRESSION - Mirtazipine, and Zoloft resumed added serquel PRN and Trazodin hs Psych eval requested for Psychosis /paranoid behaviour DVT prophylaxis - On heparin SC with HD - SCD Disposition - will need rehab after discharged form hospital Admission and Anticipated Discharge Date Admission Date: July 21, 2019 Subjective pt is very lucid and oriented today sitting on chair conversing appropriately does not recall events for last 2-3 days unable to have dialysis today as fistula got infiltrated Physical Exam Constitutional: WD/WN, vitals as above + ill appearing; no acute distress Eyes: + anicteric sclerae Respiratory: normal respiratory effort; no respiratory distress Auscultation: no crackles, no rales, no rhonchi and no wheezes Cardiovascular: RRR, no murmur, no edema Gastrointestinal (Abdomen): Percussion/Palpation: abdomen soft; abdomen nontender Neurologic: PERRL, EOMI, accommodation nl, no face palsy, no dysarthria Psychiatric: Orientation: alert; + not oriented x 3 Affect: + labile affect Hallucinations: + visual hallucinations Cognition: + recent memory not intact and + remote memory not intact Insight: + poor insight Results & Data Results & Data ([facility]) Vital Signs (Past 12 Hours) Vital Signs Temp Pulse Resp BP BP Pulse Ox 07/25/19 16:42 159/73 H 07/25/19 15:48 36.6 C 76 19 196/81 H 96 07/25/19 08:09 36.7 C 85 18 207/95 H 99
[2019-07-25] MEDS: ACETAMINOPHEN 325 MG TAB PO PRN (20:12)
[2019-07-25] MEDS: TRAZODONE HCL 50 MG TAB PO SCH (20:17)
[2019-07-25] MEDS: MIRTAZAPINE TAB 15 MG TAB PO SCH (20:18)
[2019-07-25] MEDS: MONTELUKAST SODIUM 10 MG TABLET PO SCH (20:18)
[2019-07-25] MEDS: cefTRIAXone SODIUM 1,000 MG/50 ML BAG IV SCH (20:19)
[2019-07-26] MEDS: LEVOTHYROXINE SODIUM 25 MCG TABLET PO SCH (07:27)
[2019-07-26] MEDS: HydrALAZINE HCL 20 MG/ML VIAL IV PRN (07:27)
[2019-07-26] MEDS: FLUTICASONE PROPIONATE NA SPR 16 GM BTL NAE SCH (07:28)
[2019-07-26] MEDS: FUROSEMIDE 40 MG TAB PO SCH (07:28)
[2019-07-26] MEDS: METOPROLOL TARTRATE 25 MG TAB PO SCH ×2 (07:28→20:50)
[2019-07-26] MEDS: ASPIRIN 81 MG ECTAB PO SCH (07:29)
[2019-07-26] MEDS: SEVELAMER HCL 800 MG TABLET PO SCH ×3 (07:29→17:45)
[2019-07-26] MEDS: CHOLECALCIFEROL 1,000 UNITS 25 MCG TAB PO SCH ×2 (07:29→20:50)
[2019-07-26] MEDS: FLUTICASONE/VILANTEROL 100/25MCG 14 PUFFS/INHALER INH SCH (07:29)
[2019-07-26] MEDS: CLOPIDOGREL BISULFATE 75 MG TAB PO SCH (07:29)
[2019-07-26] MEDS: SERTRALINE HCL 50 MG TABLET PO SCH (07:30)
[2019-07-26] MEDS ORDERED: HEPARIN SOD (PORCINE) 1000 UNIT/ML 10 ML VIAL IV ONE (08:21)
[2019-07-26] MEDS ORDERED: SODIUM CHLORIDE 0.9% 1000ML 1,000 ML IV PRN (08:21)
--- NOTE | 2019-07-26 10:16 | Hospitalist Progress Note ---
Date of Service July 26, 2019 Assessment & Plan (1) Metabolic encephalopathy: DELIRIUM : symptom has resolved possible due to Drug side effect ? was on PO Trazodon hs pt reports she has stopped taking Trazodone few years back due to confusion /halluciation Trazodon D/yanick , added to allergy /adverse reaction list she has been taking Belsomra 20 mg HS for insomina ( ordered ) very calm , pleasant and appropriate PRN serquel , Haldol d/yanick pt;s home antidepressant meds : Remeron /Zolot resumed METABOLIC ENCEPHALOPATHY admitted with lathergy /difficult to arouse symptom has resolved developed delirium during this hospital stay possible due to combination of UTI/medication changes /in patient admission mental status improved to baseline Brain MRI: no acute CVA UTI: - Urine culture: gram negative bacilli/E coli /Lactobacillus no fever or chills ,normal white count complete total 5 days of tx ESRD : on Chronic dialysis for past 1 yr unable to have HD yesterday as fistula was infilitrated s/p dialysis today Fistula functioning well appreciate input from nephrology next out pt dialysis scheduled on Friday 07/28 HISTORY OF CVA - on ASA and Plavix, no evidence of acute stroke noted in MRI of brain DEPRESSION - Mirtazipine, and Zoloft resumed D/c Serquel /Trazodon -possible causing worsening of confusion Psych eval requested appreciate input DVT prophylaxis - On heparin SC with HD - SCD Disposition - plan to dc home tomorrow Admission and Anticipated Discharge Date Admission Date: July 21, 2019 Subjective awake and alert oriented to time /place /person conversing appropriately no confusion or agitation able to complete total 4 hrs of dialysis treatment today hypotensive episode noted after HD , felt nauseous BP stable now no dizzy spell or lightheadedness , no fever or chills Review of Systems Review of Systems: All systems reviewed & are unremarkable except as noted in HPI & below Psychiatric: no behavioral changes and no confusion Physical Exam Constitutional: WD/WN, vitals as above no acute distress Eyes: + anicteric sclerae Respiratory: normal respiratory effort; no respiratory distress Auscultation: no crackles, no rales, no rhonchi and no wheezes Cardiovascular: RRR, no murmur, no edema Gastrointestinal (Abdomen): Percussion/Palpation: abdomen soft; abdomen nontender Neurologic: PERRL, EOMI, accommodation nl, no face palsy, no dysarthria Psychiatric: A+Ox3, euthymic affect Affect: euthymic affect Cognition: recent memory grossly intact and remote memory grossly intact Estimated Intelligence: average estimated intelligence Insight: good insight and + poor insight Judgement: good judgement Results & Data Results & Data ([facility]) Vital Signs (Past 12 Hours) Vital Signs Temp Pulse Pulse Resp BP BP BP 07/26/19 09:40 69 170/80 H 07/26/19 09:26 37.2 C 73 73 164/79 H 07/26/19 08:50 71 168/74 H 07/26/19 07:21 37.1 C 80 16 196/86 H 07/25/19 23:54 36.6 C 81 18 113/64 Pulse Ox 07/26/19 09:40 07/26/19 09:26 07/26/19 08:50 07/26/19 07:21 97 07/25/19 23:54 94
--- NOTE | 2019-07-26 10:54 | Dialysis Progress Note ---
Date of Service July 26, 2019 Assessment & Plan (1) ESRD (end stage renal disease) on dialysis: On July 21 for dialysis she tolerated 3 hours and 15 minutes. Unfortunately her set clotted off, so complete 4 hours was not done. I did not feel it was indicated to use supplies for another set up for less than an hour of treatment. We will make this up on treatments later this week. she became agitated yesterday and tx stopped after 3 h. Chemistries and volume status generally acceptable. bp very elevated. Not anemic; had very short dialysis treatment yesterday due to first elevated transmembrane pressures, second cannulation challenges on the venous limb If she is able to complete full 4.5 hours today, next dialysis could appropriately be on July 28 as inpatient or outpatient depending on clinical needs If unable to complete full treatment today, may need short treatment tomorrow -Continue phosphorus binders -bmp for tomorrow if still in-house (2) Hypertension: ongoing elevation; not on antihypertensives as an outpatient -Minimize IV fluids -Ordered fluid restriction 1.2 L -CONTINUE metoprolol 12.5 mg twice daily, with hold parameters; continue PRN hydralazine. Continue standing Lasix -aggressive uf today w/ HD (3) Altered mental status: Per primary service; no clear cause. Improved today. she has completed empiric ceftriaxone for presumptive UTI. However urinalysis more suggestive of skin contamination than of infection, so short course of antibiotics given considering altered mental status History of patent PFO noted cont antidepressant -psych consultation augmentations noted Subjective Seen on dialysis at approximately 10:10 AM. Tolerating treatment well, though it was only just begun. MEntal status today seems very close to her baseline. Complains of poor sleep due to using normal outpatient medications for sleep in the hospital; was straight cathed yesterday 500 mL of urine. Denies current symptoms of urinary retention. Denies shortness of breath, chest pain headache. Tolerating p.o. Review of Systems Review of Systems: All systems reviewed & are unremarkable except as noted in HPI & below Physical Exam Constitutional: well developed, + thin, + frail appearing and cooperative; no altered mental status On room air using a coloring book Eyes: EOM intact bilaterally ENMT: Ears: no external ear abnormality Nose: no external nose abnormality Mouth: + dry oral mucous membranes Neck: no nuchal rigidity Respiratory: normal respiratory effort and able to speak in complete sentences; no paradoxical thoraco-abdominal movemnt Auscultation: lungs clear to auscultation bilaterally and + diminished lung sounds Cardiovascular: Rate/Rhythm: regular rate and regular rhythm Extremities: + AV fistula (+ t/b); no edema Gastrointestinal (Abdomen): Inspection/Auscultation: normal bowel sounds Percussion/Palpation: abdomen soft; abdomen nontender, no guarding and abdomen not rigid Musculoskeletal: Extremities: strength 5/5 throughout Skin: no rashes, warm and dry + turgor decreased Neurologic: awake Speech / Cognition: normal speech and normal cognition Cranial Nerves: able to rotate head bilaterally Psychiatric: A+Ox3, euthymic affect Eye Contact: good eye contact Motor Behavior: no psychomotor retardation Speech: normal rate/rhythm/volume of speech Hallucinations: no auditory hallucinations and no visual hallucinations Results & Data Vital Signs (Past 12 Hours) Vital Signs Temp Pulse Pulse Resp BP BP BP 07/26/19 10:40 79 107/62 07/26/19 10:20 77 145/83 H 07/26/19 10:00 76 156/83 H 07/26/19 09:40 69 170/80 H 07/26/19 09:26 37.2 C 73 73 164/79 H 07/26/19 08:50 71 168/74 H 07/26/19 07:21 37.1 C 80 16 196/86 H 07/25/19 23:54 36.6 C 81 18 113/64 Pulse Ox 07/26/19 10:40 07/26/19 10:20 07/26/19 10:00 07/26/19 09:40 07/26/19 09:26 07/26/19 08:50 07/26/19 07:21 97 07/25/19 23:54 94 Laboratory Results 07/25/19 06:46 07/25/19 06:46 (1) Hypertension Hypertension type: essential hypertension Qualified Code(s): I10 - Essential (primary) hypertension (2) Altered mental status Altered mental status type: unspecified Qualified Code(s): R41.82 - Altered mental status, unspecified
[2019-07-26] MEDS: HEPARIN SOD (PORCINE) 1000 UNIT/ML 10 ML VIAL IV SCH ×2 (14:35→14:36)
[2019-07-26] MEDS: MIRTAZAPINE TAB 15 MG TAB PO SCH (20:49)
[2019-07-26] MEDS: MONTELUKAST SODIUM 10 MG TABLET PO SCH (20:50)
[2019-07-26] MEDS ORDERED: Nursing to Pharmacy Communication SCH (21:15)
[2019-07-26] MEDS ORDERED: BELSOMRA 20 MG PO SCH (22:00)
[2019-07-27] MEDS ORDERED: HydrALAZINE HCL 20 MG/ML VIAL IV PRN (02:21)
[2019-07-27] MEDS ORDERED: HydrALAZINE HCL 20 MG/ML VIAL IV ONE (02:21)
[2019-07-27] MEDS: LEVOTHYROXINE SODIUM 25 MCG TABLET PO SCH (05:24)
[2019-07-27] MEDS: SERTRALINE HCL 50 MG TABLET PO SCH (07:52)
[2019-07-27] MEDS: CLOPIDOGREL BISULFATE 75 MG TAB PO SCH (07:52)
[2019-07-27] MEDS: FUROSEMIDE 40 MG TAB PO SCH (07:52)
[2019-07-27] MEDS: SEVELAMER HCL 800 MG TABLET PO SCH ×2 (07:53→13:14)
[2019-07-27] MEDS: METOPROLOL TARTRATE 25 MG TAB PO SCH (07:55)
[2019-07-27] MEDS: CHOLECALCIFEROL 1,000 UNITS 25 MCG TAB PO SCH (07:56)
[2019-07-27] MEDS: FLUTICASONE PROPIONATE NA SPR 16 GM BTL NAE SCH (07:56)
[2019-07-27] MEDS: ASPIRIN 81 MG ECTAB PO SCH (07:57)
[2019-07-27] MEDS: FLUTICASONE/VILANTEROL 100/25MCG 14 PUFFS/INHALER INH SCH (07:57)
[2019-07-27] MEDS: ACETAMINOPHEN 325 MG TAB PO PRN (13:57)
--- NOTE | 2019-07-27 14:17 | Nephrology Progress Note ---
Date of Service July 27, 2019 Assessment & Plan (1) ESRD (end stage renal disease) on dialysis: On July 21 for dialysis she tolerated 3 hours and 15 minutes. Unfortunately her set clotted off, so complete 4 hours was not done. I did not feel it was indicated to use supplies for another set up for less than an hour of treatment. We will make this up on treatments later this week. she became agitated 07/23 and tx stopped after 3 h. Chemistries and volume status generally acceptable. bp very elevated. Not anemic; had very short dialysis treatment 07/24 due to first elevated transmembrane pressures, second cannulation challenges on the venous limb completed longer 4.5 hours 07/26, next dialysis could appropriately be on July 28 as outpatient; she had 2.2 L off but did drop her bp late in tx, recovered by end of tx reasonable for d/c home today -Continue phosphorus binders -bmp for tomorrow if still in-house (2) Hypertension: ongoing elevation; takes amlodipine 10 mg daily as outpatient >>cont same at d/c -Minimize IV fluids -Ordered fluid restriction 1.2 L -would NOT change bp meds at d/c; would d/c on amlodipine alone and not continue metoprolol 12.5 mg twice daily or standing Lasix (3) Altered mental status: Per primary service; no clear cause. Resolved History of patent PFO noted cont antidepressant -psych consultation augmentations noted Admission and Anticipated Discharge Date Admission Date: July 21, 2019 Subjective c/o R hip pain asking for tylenol; otherwise feeling well > has no sob, no further altered MS; no chest pain or edema. BP high again ON w/o sx though improved on last check Review of Systems Review of Systems: All systems reviewed & are unremarkable except as noted in HPI & below Physical Exam Constitutional: well developed, + thin, + frail appearing and cooperative; no altered mental status on RA A&0 x 3 Eyes: EOM intact bilaterally ENMT: Ears: no external ear abnormality Nose: no external nose abnormality Mouth: + dry oral mucous membranes Neck: no nuchal rigidity Respiratory: normal respiratory effort and able to speak in complete sentence s; no paradoxical thoraco-abdominal movemnt Auscultation: lungs clear to auscultation bilaterally Cardiovascular: Rate/Rhythm: regular rate and regular rhythm Heart Sounds: + murmur Extremities: + AV fistula (+ t/b); no edema Gastrointestinal (Abdomen): Inspection/Auscultation: normal bowel sounds Percussion/Palpation: abdomen soft; abdomen nontender, no guarding and abdomen not rigid Musculoskeletal: Extremities: strength 5/5 throughout Skin: no rashes, warm and dry Neurologic: awake Speech / Cognition: normal speech and normal cognition Cranial Nerves: able to rotate head bilaterally Psychiatric: A+Ox3, euthymic affect Orientation: alert and oriented to person Eye Contact: good eye contact Motor Behavior: no psychomotor retardation Speech: normal rate/rhythm/volume of speech Thought Process: + looseness of associations Hallucinations: no auditory hallucinations and no visual hallucinations Results & Data ([facility]) Vital Signs (Past 12 Hours) Vital Signs Temp Pulse Resp BP Pulse Ox 07/27/19 07:40 37.4 C 101 H 19 149/72 H 95 (1) Hypertension Hypertension type: essential hypertension Qualified Code(s): I10 - Essential (primary) hypertension (2) Altered mental status Altered mental status type: unspecified Qualified Code(s): R41.82 - Altered mental status, unspecified
--- NOTE | 2019-07-27 15:51 | Hospitalist Progress Note ---
Date of Service July 27, 2019 Assessment & Plan (1) Metabolic encephalopathy: DELIRIUM : symptom has completely resolved pt is at her baseline mental status , oriented times X3 , possible due to Drug side effect ? presented with lethergy , altered pt was started on PO Trazodon this admission for agitation pt reports she has stopped taking Trazodone few years back due to confusion /halluciation Trazodon D/yanick , added to allergy /adverse reaction list Her home med Belsomra 20 mg HS for insomnia ( ordered ) very calm , pleasant and appropriate PRN seroquel , Haldol d/yanick pt;s home antidepressant meds : Remeron /Zoloft resumed METABOLIC ENCEPHALOPATHY admitted with lathergy /difficult to arouse symptom has resolved developed delirium during this hospital stay possible due to combination of UTI/medication changes /in patient admission mental status improved to baseline Brain MRI: no acute CVA UTI: - Urine culture: gram negative bacilli/E coli /Lactobacillus no fever or chills ,normal white count completed total 5 days of tx ESRD : on Chronic dialysis for past 1 yr Fistula functioning well ; had complete 4 hrs dialysis yesterday appreciate input from nephrology next out pt dialysis scheduled on Friday 07/28 stable to be discharged home HTN : had hypotensive episode after dialysis yesterday hypertensive urgency overnight appreciate input from Nephrology pt takes Norvasc 10 mg daily ( as not included in her home med on admission to [facility] ) Norvasc resumed D/c Lasix and Beta arturo BP much improved with Norvasc stable to be discharged home today HISTORY OF CVA - on ASA and Plavix, no evidence of acute stroke noted in MRI of brain DEPRESSION - Mirtazipine, and Zoloft resumed D/c Serquel /Trazodon -possible causing worsening of confusion Psych eval requested appreciate input pt is at her baseline mental status will continue to follow with her Psychiatrist in clnic DVT prophylaxis - On heparin SC with HD - SCD Disposition - discharged home today Admission and Anticipated Discharge Date Admission Date: July 21, 2019 Subjective awake and alert feels fine no confusion or disorientation noted no SOB , no cough , no fever or chills stable to be discharged home today Review of Systems Review of Systems: All systems reviewed & are unremarkable except as noted in HPI & below Physical Exam Constitutional: WD/WN, vitals as above Eyes: + anicteric sclerae Respiratory: normal respiratory effort; no respiratory distress Auscultation: no crackles, no rales, no rhonchi and no wheezes Cardiovascular: RRR, no murmur, no edema Gastrointestinal (Abdomen): Percussion/Palpation: abdomen soft; abdomen nontender Neurologic: PERRL, EOMI, accommodation nl, no face palsy, no dysarthria Psychiatric: A+Ox3, euthymic affect Cognition: remote memory grossly intact Judgement: good judgement Results & Data Results & Data ([facility]) Vital Signs (Past 12 Hours) Vital Signs Temp Pulse Pulse Resp BP Pulse Ox 07/27/19 15:04 37.4 C 75 101 H 19 149/72 H 95 07/27/19 07:40 37.4 C 101 H 19 149/72 H 95
--- NOTE | 2019-07-27 16:39 | Discharge Summary ---
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 Evans that patient recently was evaluated as outpatient for respiratory symptoms. An outpatient COVID-19 test was performed on 07/14/2019 with negative results reported on 07/17/2019. Patient then went to completed full dialysis session on Sunday07/19/2019. Then as per on Sunday07/20/2019, patient had poor appetite and vomited with changes to her mental status. Patient was sent to ED by EMS on 07/21/2019. Patient did not have evidence for stroke as per CT head scan and no obvious source of infection or fluid overload - no evidence of pneumonia or pulmonary edema on chest X ray and no acute electrolyte derangements. However, patient was minimally responsive to questions to ED provider. When assessed by hospitalist for admission, patient appears to be able to understand some directions and would say single word responses such as "yes," give affirmative "Uh-huhs", or give vocal sounds to deny pain. Intermittently, her whole body would have spasm which quickly goes away. She was able to follow directions to raise her upper and lower extremities minimally Family history: patient's denies that there are health conditions that run in her family Primary Care Provider: Ac Mcmanus DO Principal Diagnosis DELIRIUM -SYMPTOMS HAS RESOLVED END STAGE RENAL DISEASE ON DIALYSIS HYPERTENSION DEPRESSION Discharge Exam Constitutional WD/WN, vitals as above no acute distress Eyes + anicteric sclerae Respiratory normal respiratory effort; no respiratory distress Auscultation: no crackles, no rales, no rhonchi and no wheezes Cardiovascular RRR, no murmur, no edema Gastrointestinal (Abdomen) Percussion/Palpation: abdomen soft; abdomen nontender Neurologic PERRL, EOMI, accommodation nl, no face palsy, no dysarthria Psychiatric A+Ox3, euthymic affect Orientation: alert; + not oriented x 3 Affect: euthymic affect Hallucinations: + visual hallucinations Cognition: remote memory grossly intact Estimated Intelligence: average estimated intelligence Insight: good insight and + poor insight Judgement: good judgement Discharge Data Allergies Allergy/AdvReac Type Severity Reaction Status Date / Time tomato Allergy Severe Hives Verified 07/21/19 14:34 bee venom protein (honey bee) Allergy Mild MOUTH Verified 07/21/19 14:34 SWELLING Penicillins Allergy Mild RASH Verified 07/21/19 14:34 prednisone Allergy Mild SWELLING Verified 07/21/19 14:34 OG HANDS, ITCHING, RASH rosuvastatin Allergy Mild SEVERE H/A Verified 07/21/19 14:34 trazodone AdvReac Severe Confusion Verified 07/26/19 16:55 Btauwnj-Xms-Nbc Reductase AdvReac Mild EFFECTED Verified 07/21/19 14:34 Inhibitor LIVER STUDIES Consultations 07/21/19 18:27 ED Decision to Admit Stat 07/21/19 18:52 Consult Case Management - Discharge Planning Routine 07/21/19 19:00 Consult Nephrology Routine 07/24/19 18:09 Consult Psychiatry Routine Ordered Studies 07/21/19 14:10 CT cervical spine wo con Stat CT head/brain wo con Stat 07/21/19 18:49 MR brain wo con Stat Hospital Course (1) Metabolic encephalopathy: DELIRIUM : symptom has completely resolved pt is at her baseline mental status , oriented times X3 , possible due to Drug side effect ? presented with lethergy , altered pt was started on PO Trazodon this admission for agitation pt reports she has stopped taking Trazodone few years back due to confusion /halluciation Trazodon D/yanick , added to allergy /adverse reaction list Her home med Belsomra 20 mg HS for insomnia ( ordered ) very calm , pleasant and appropriate PRN seroquel , Haldol d/yanick pt;s home antidepressant meds : Remeron /Zoloft resumed METABOLIC ENCEPHALOPATHY admitted with lathergy /difficult to arouse symptom has resolved developed delirium during this hospital stay possible due to combination of UTI/medication changes /in patient admission mental status improved to baseline Brain MRI: no acute CVA UTI: - Urine culture: gram negative bacilli/E coli /Lactobacillus no fever or chills ,normal white count completed total 5 days of tx ESRD : on Chronic dialysis for past 1 yr Fistula functioning well ; had complete 4 hrs dialysis yesterday appreciate input from nephrology next out pt dialysis scheduled on Friday 07/28 stable to be discharged home HTN : had hypotensive episode after dialysis yesterday hypertensive urgency overnight appreciate input from Nephrology pt takes Norvasc 10 mg daily ( as not included in her home med on admission to [facility] ) Norvasc resumed D/c Lasix and Beta arturo BP much improved with Norvasc stable to be discharged home today HISTORY OF CVA - on ASA and Plavix, no evidence of acute stroke noted in MRI of brain DEPRESSION - Mirtazipine, and Zoloft resumed D/c Serquel /Trazodon -possible causing worsening of confusion Psych eval requested appreciate input pt is at her baseline mental status will continue to follow with her Psychiatrist in clnic DVT prophylaxis - On heparin SC with HD - SCD Disposition - discharged home today Total Time Total Time Spent Total Time Spent (In Minutes): approx 35 mins Discharge Plan Discharge Items Patient Disposition: Home - Self-Care Reason For Visit: ALTERED MENTAL STATUS,ESRD ON DIALYSIS,HYPERTENSIO Discharge Diagnosis: DELIRIUM -SYMPTOMS HAS RESOLVED END STAGE RENAL DISEASE ON DIALYSIS HYPERTENSION DEPRESSION Condition on Discharge: Fair Activity: Resume your previous activity Non-emergency contact: Primary Care Provider Call non-emergency contact if: you have any medication questions Follow-up/Referrals: Ac Mcmanus, [Primary Care Provider] - Diet: Carb Consistent or DM2 and Dialysis Renal Addtl Attending Provider Instructions: HOSPITAL FOLLOW UP WITH FAMILY PHYSICIAN IN A WEEK , PLEASE CALL TO SCHEDULE APPOINTMENT FOLLOW UP WITH YOUR PSYCHIATRIST IN 1-2 WEEKS Pending Studies at Discharge: No Stand-Alone Forms: [employer], Smoking Cessation Medications and DC Order Prescriptions: New amlodipine [Norvasc] 10 mg tablet 10 mg PO DAILY Qty: 30 RF: 3 Continued mirtazapine 30 mg tablet 30 mg PO HS RF: 0 sertraline [Zoloft] 100 mg Tablet 150 mg PO QAM RF: 0 clopidogrel [Plavix] 75 mg Tablet 75 mg PO QAM RF: 0 aspirin 81 mg Tablet,Delayed Release (Dr/Ec) 81 mg PO QAM RF: 0 levothyroxine 25 mcg Tablet 25 mcg PO QAM RF: 0 montelukast [Singulair] 10 mg Tablet 10 mg PO HS RF: 0 fluticasone propionate [Flonase Allergy Relief] 50 mcg/actuation Bogue,Suspension 1 spray INTRANASAL DAILY RF: 0 cholecalciferol (vitamin D3) 1,000 unit Capsule 1,000 unit PO BID RF: 0 cyclobenzaprine 5 mg Tablet 5 mg PO TID PRN (Reason: Pain) RF: 0 azelastine 0.15 % (205.5 mcg) Bogue,Non-Aerosol 1 spray INTRANASAL QAM RF: 0 Breo Ellipta 100-25 mcg/dose Blister With Device 1 inh INHALATION QAM RF: 0 albuterol sulfate 90 mcg/actuation Aerosol Powdr Breath Activated 2 puff INHALATION QID PRN (Reason: Shortness Of Breath) RF: 0 hydroxyzine pamoate [Vistaril] 50 mg Capsule 50 mg PO HS RF: 0 ondansetron 4 mg Tablet,Disintegrating 4 mg PO Q6H PRN (Reason: Nausea) RF: 0 sevelamer carbonate [Renvela] 800 mg Tablet 800 mg PO TIDM RF: 0 Belsomra 20 mg Tablet 20 mg PO HS RF: 0 Discontinued furosemide [Lasix] 40 mg Tablet 40 mg PO QAM RF: 0 Discharge Orders: Discharge Order (Routine); Ordered 07/27/19 Ordered By: Francesca Gonzalez Admission Data Admit Date/Time: 07/21/19 19:31 Attending Provider: Francesca Gonzalez Admit Provider: Leo Vega Primary Care Provider: Ac Mcmanus Other Providers: [facility] ; [facility] ; [facility] ; [facility] ; [facility], ; Leo Vega ; Tory Evans ; Cherry Crespo Other Interventions: Discharge Summary Assessment (RN) Last Done: 07/27/19 15:04 DC Date/Time DO NOT enter until pt leaves facility: 07/27/19 16:19
== END 2019-07-27 16:19 | disposition home or self-care (01) | DRG 689 ==
LOC: ED 14:02 → SUATTDRO 19:31 → 1E 19:31 → 2W 07-23 13:30

== ENCOUNTER 2021-01-07 11:42 | Inpatient (IN) ==
--- NOTE | 2021-01-07 13:03 | Emergency Department Note ---
History of Present Illness General Chief complaint: Fall Stated complaint: Weakness Time Seen by Provider: 01/07/21 12:37 Source: patient and family History of Present Illness Provider complaint: Slurred speech and difficulty walking Onset (ago): hour(s) Location: head Pain Consistency: + constant Maximum Pain Intensity: 8 Quality: + other (Slurring of speech and feeling off balance) Relieved By: + none Associated symptoms: no chest pain, no cough, no fever/chills, no nausea/vomiting or no shortness of breath This is a 70-year-old female with a history of stroke and end-stage renal disease presenting with slurring of her speech and difficulty walking starting this morning when she woke up at 730. She states that yesterday she fell because her body spasmed and she was seen here in emergency department. She had multiple imaging studies which were negative and she was sent home. She states she was very anxious yesterday and so she did use marijuana last night. She had no symptoms prior to going to bed at 9 PM. She stated that she had no slurring of her speech or numbness or weakness on one side of her body. She has had a prior stroke and is on Plavix. She presented with right-sided weakness at that time. Today she was very off balance but she did not fall to the ground because her son was able to catch her. She denies any fever, cough or cold symptoms, chest pain, shortness of breath, vomiting, abdominal pain, diarrhea or urinary symptoms. She does urinate about 20 ounces a day. She was supposed to be dialyzed yesterday but missed the appointment. She is scheduled to be dialyzed tomorrow. Her last dialysis was on Sunday of this week. Home Medications Medication Instructions Recorded Confirmed Type albuterol sulfate 90 mcg/actuation 2 puff INHALATION QID PRN 02/18/18 01/07/21 History breath activated powder inhaler aspirin 81 mg tablet,delayed 81 mg PO QAM 02/18/18 01/07/21 History release azelastine 205.5 mcg (0.15 %) 1 spray INTRANASAL QAM 02/18/18 01/07/21 History nasal spray clopidogrel 75 mg tablet (Plavix) 75 mg PO QAM 02/18/18 01/07/21 History cyclobenzaprine 5 mg tablet 5 mg PO TID PRN 02/18/18 01/07/21 History fluticasone furoate 100 1 inh INHALATION QAM 02/18/18 01/07/21 History mcg-vilanterol 25 mcg/dose inhalation powder (Breo Ellipta) fluticasone propionate 50 1 spray INTRANASAL DAILY PRN 02/18/18 01/07/21 History mcg/actuation nasal spray,suspension (Flonase Allergy Relief) levothyroxine 25 mcg tablet 25 mcg PO QAM 02/18/18 01/07/21 History montelukast 10 mg tablet 10 mg PO HS 02/18/18 01/07/21 History (Singulair) sertraline 100 mg tablet (Zoloft) 150 mg PO QAM 02/18/18 01/07/21 History ondansetron 4 mg disintegrating 4 mg PO Q6H PRN 03/26/19 01/07/21 History tablet sevelamer carbonate 800 mg tablet 1,600 mg PO TIDM 03/26/19 01/07/21 History (Renvela) suvorexant 20 mg tablet (Belsomra) 20 mg PO HS 03/26/19 01/07/21 History mirtazapine 30 mg tablet 30 mg PO HS 07/21/19 01/07/21 History amlodipine 10 mg tablet (Norvasc) 10 mg PO QAM 03/23/20 01/07/21 History cholecalciferol (vitamin D3) 50 2,000 unit PO QAM 03/23/20 01/07/21 History mcg (2,000 unit) capsule (Vitamin D3) hydralazine 25 mg tablet 50 mg PO QPM 03/23/20 01/07/21 History hydroxyzine HCl 10 mg tablet 10 mg PO Q6 PRN 03/23/20 01/07/21 History linagliptin 5 mg tablet (Tradjenta) 5 mg PO QAM 03/23/20 01/07/21 History nitroglycerin 0.4 mg sublingual 0.4 mg SUBLINGUAL UD PRN 03/23/20 01/07/21 History tablet potassium 99 mg tablet 99 mg PO QAM 03/23/20 01/07/21 History Allergies Allergy/AdvReac Type Severity Reaction Status Date / Time bee venom protein (honey bee) Allergy Intermediate MOUTH Verified 01/07/21 14:37 SWELLING prednisone Allergy Intermediate SWELLING Verified 01/07/21 14:37 OG HANDS, ITCHING, RASH tomato Allergy Intermediate Hives Verified 01/07/21 14:37 Penicillins Allergy Mild RASH Verified 01/07/21 14:37 rosuvastatin Allergy Mild SEVERE H/A Verified 01/07/21 14:37 trazodone AdvReac Severe Confusion Verified 01/07/21 14:37 [id number] Reductase AdvReac Mild EFFECTED Verified 01/07/21 14:37 Inhibitor LIVER STUDIES Past Med/Surg History Medical History (Updated 01/07/21 @ 18:46 by Macario Mccord MD) Anemia Anxiety Asthma Uses albuterol daily. Atrial fibrillation FOLLOWED BY DR. CARROLL AV fistula Depression Diabetes mellitus, type 2 oral med End stage renal disease receiving hemodiaylsis Sunday//Saturdays in [place]. Follows Dr. Ramirez ([place], [place]). Endometriosis stage 4 GERD (gastroesophageal reflux disease) Hyperlipidemia Hypertension no medications currently - experiencing hypotension Hypothyroidism Kidney failure STAGE 4 NO DIALYSIS Migraine Myocardial Infarction 2007 Osteoarthritis Stroke X 2 2013 Surgical History History of abdominal surgery UMBILICAL MESH REMOVED (NECROTIC) History of adenoidectomy History of appendectomy History of martha hole surgery 2013 AFTER CVA TO "REMOVED FLUID" History of cardiac cath 2007 AT [facility] History of cataract surgery RT/LEFT History of section X 3 History of cholecystectomy History of colonoscopy History of coronary artery bypass graft 2007 3 VESSELS AT [place] History of esophagogastroduodenoscopy (EGD) History of herniorrhaphy X 3 REPAIRS History of surgery LEFT FOOT/ANKLE FX REPAIR S/P FALL (HARDWARE) History of tonsillectomy History of tooth extraction History of total abdominal hysterectomy and bilateral salpingo-oophorectomy History of total knee replacement LEFT Hx of hand surgery LEFT HAND SURGERY "TOOK BONES OUT" S/P arteriovenous (AV) fistula creation Left arm S/P panniculectomy Family History Brother Family history of diabetes mellitus Mother Family history of diabetes mellitus Other No family history of adverse response to anesthesia Social History Smoking Status: Current some day smoker Tobacco Type: Cigarettes Second Hand Exposure: No; Hx Alcohol Use: No Hx Substance Use: No Preferred Language: Hungarian Communication Ability: Effective Visual Impairment: No Limitations [employer] Analyst Required: No Beliefs That Will Affect Care: None Current Living Situation: Spouse Feels Safe at Home: Yes Assistive Devices: Denture - Upper and Walker Review of Systems See HPI for pertinent positives & negatives. and A total of 10 systems reviewed and were otherwise negative Physical Exam Vital Signs Vital Signs - 24 hr 01/07/21 11:29 01/07/21 14:01 Respiratory Rate 20 Blood Pressure 131/67 Blood Pressure [Right Arm] 156/74 H Blood Pressure Mean 88 Blood Pressure Mean [Right Arm] 101 Pulse Oximetry 93 98 Sepsis Recent Fever Within 48 Hours No Sepsis New/Unexplained Change in Mental Status No Sepsis Action Taken by Nursing No Action Required Constitutional: Vital signs reviewed. Eyes: Pupils are equal round reactive to light. Conjunctiva are noninjected. ENT: Pharynx is clear without erythema or exudate. Mucous membranes are moist. Neck supple without meningeal signs. Respiratory: Clear to auscultation bilaterally. Breath sounds are equal bilaterally. Cardiovascular: Regular rate and rhythm. No rubs or gallops. GI: Soft, nondistended and nontender. Bowel sounds are present. Musculoskeletal: No peripheral edema. Right foot is in a walking boot. Integumentary: No cyanosis. or jaundice. Neurologic: The patient is awake and alert. Cranial nerves II-XII are intact. Motor is 5 out of 5 all extremities. Sensation is intact to light touch all extremities. Slurred speech. No pronator drift. No limb ataxia upper extremities. Psychiatric: Normal affect. Not anxious appearing. Medical Decision Making Differential Diagnosis CVA, TIA, metabolic derangement, intracranial hemorrhage, drug adverse reaction Medical Records Attestation: I reviewed the patient's medical records. I did perform a limited focused review of portions of the patient's old chart on the electronic medical record. The patient was seen yesterday after falling at home. She had multiple x-rays and CT scans as noted on the EMR. Head CT was negative. Home Medications Current Medication List: was personally reviewed by me Laboratory Data Attestation: I reviewed the patient's lab results. Result diagrams: 01/07/21 12:13 01/07/21 12:13 Lab Results 01/07/21 01/07/21 01/07/21 Range/Units 12:13 12:13 13:05 WBC 8.15 (4.8-10.8) K/uL RBC 3.45 L (4.2-5.4) M/uL Hgb 10.0 L (12.0-16.0) g/dL Hct 31.0 L (37-47) % MCV 89.9 (80-100) fL MCH 29.0 (25-34) pg MCHC 32.3 (32-36) g/dL RDW Std Deviation 47.3 H (36.4-46.3) fL RDW Coeff of Odilon 14.3 (11.5-14.5) % Plt Count 153 (130-400) K/uL MPV 9.3 (7.4-10.4) fL Immature Gran % (Auto) 0.2 % Neut % (Auto) 82.7 % Lymph % (Auto) 9.9 % [place] % (Auto) 5.9 % Eos % (Auto) 1.2 % Baso % (Auto) 0.1 % Neut # (Auto) 6.73 H (1.4-6.5) K/uL Lymph # (Auto) 0.81 L (1.2-3.4) K/uL [place] # (Auto) 0.48 (0.11-0.59) K/uL Eos # (Auto) 0.10 (0-0.5) K/uL Baso # (Auto) 0.01 (0-0.2) K/uL Immature Gran # (Auto) 0.02 (0.00-0.02) K/uL PT (9.0-12.0) Seconds INR (0.9-1.1) APTT (21.0-31.0) Seconds PTT Ratio Sodium 134 L (136-145) mmol/L Potassium 4.3 (3.5-5.1) mmol/L Chloride 97 L (98-107) mmol/L Carbon Dioxide 30 (21-32) mmol/L Anion Gap 7.0 (3-11) BUN 61 H (7-18) mg/dl Creatinine 6.72 H* (0.6-1.2) mg/dl Est Cr Clr Drug Dosing 6.7 ml/min Est GFR ( Amer) 6.5 ml/min Est GFR (Non-Af Amer) 5.6 ml/min BUN/Creatinine Ratio 9.1 L (10-20) Glucose 148 H (70-99) mg/dl Calcium 8.1 L (8.5-10.1) mg/dl Magnesium 2.7 H (1.8-2.4) mg/dl Total Bilirubin 0.3 (0.2-1) mg/dl AST 18 (15-37) U/L ALT 16 (12-78) U/L Alkaline Phosphatase 100 (45-117) U/L Troponin I < 0.015 (0-0.045) ng/ml Total Protein 6.9 (6.4-8.2) gm/dl Albumin 2.8 L (3.4-5.0) gm/dl Globulin 4.1 H (2.5-4.0) gm/dl Albumin/Globulin Ratio 0.7 L (0.9-2) Urine Opiates Screen (Neg) Ur Methadone, Qual (Neg) Urine Barbiturates (Neg) Ur Phencyclidine (PCP) (Neg) U Amphetamin/Meth Scrn (Neg) MDMA (Ecstasy) Screen (Neg) U Benzodiazepines Scrn (Neg) Ur Cocaine Metabolite (Neg) U Marijuana (THC) Screen (Neg) Ethyl Alcohol mg/dL (0-3) mg/dl COVID-19 Eval Order Covid19 at [facility] SARS-CoV-2 (PCR) (Negative) Blood Type Antibody Screen 01/07/21 01/07/21 01/07/21 Range/Units 13:05 13:11 13:11 WBC (4.8-10.8) K/uL RBC (4.2-5.4) M/uL Hgb (12.0-16.0) g/dL Hct (37-47) % MCV (80-100) fL MCH (25-34) pg MCHC (32-36) g/dL RDW Std Deviation (36.4-46.3) fL RDW Coeff of Odilon (11.5-14.5) % Plt Count (130-400) K/uL MPV (7.4-10.4) fL Immature Gran % (Auto) % Neut % (Auto) % Lymph % (Auto) % [place] % (Auto) % Eos % (Auto) % Baso % (Auto) % Neut # (Auto) (1.4-6.5) K/uL Lymph # (Auto) (1.2-3.4) K/uL [place] # (Auto) (0.11-0.59) K/uL Eos # (Auto) (0-0.5) K/uL Baso # (Auto) (0-0.2) K/uL Immature Gran # (Auto) (0.00-0.02) K/uL PT 9.8 (9.0-12.0) Seconds INR 1.0 (0.9-1.1) APTT 29.4 (21.0-31.0) Seconds PTT Ratio 1.1 Sodium (136-145) mmol/L Potassium (3.5-5.1) mmol/L Chloride (98-107) mmol/L Carbon Dioxide (21-32) mmol/L Anion Gap (3-11) BUN (7-18) mg/dl Creatinine (0.6-1.2) mg/dl Est Cr Clr Drug Dosing ml/min Est GFR ( Amer) ml/min Est GFR (Non-Af Amer) ml/min BUN/Creatinine Ratio (10-20) Glucose (70-99) mg/dl Calcium (8.5-10.1) mg/dl Magnesium (1.8-2.4) mg/dl Total Bilirubin (0.2-1) mg/dl AST (15-37) U/L ALT (12-78) U/L Alkaline Phosphatase (45-117) U/L Troponin I (0-0.045) ng/ml Total Protein (6.4-8.2) gm/dl Albumin (3.4-5.0) gm/dl Globulin (2.5-4.0) gm/dl Albumin/Globulin Ratio (0.9-2) Urine Opiates Screen (Neg) Ur Methadone, Qual (Neg) Urine Barbiturates (Neg) Ur Phencyclidine (PCP) (Neg) U Amphetamin/Meth Scrn (Neg) MDMA (Ecstasy) Screen (Neg) U Benzodiazepines Scrn (Neg) Ur Cocaine Metabolite (Neg) U Marijuana (THC) Screen (Neg) Ethyl Alcohol mg/dL (0-3) mg/dl COVID-19 Eval Order SARS-CoV-2 (PCR) NEGATIVE (Negative) Blood Type O Positive Antibody Screen NEGATIVE 01/07/21 01/07/21 Range/Units 14:16 Unknown WBC (4.8-10.8) K/uL RBC (4.2-5.4) M/uL Hgb (12.0-16.0) g/dL Hct (37-47) % MCV (80-100) fL MCH (25-34) pg MCHC (32-36) g/dL RDW Std Deviation (36.4-46.3) fL RDW Coeff of Odilon (11.5-14.5) % Plt Count (130-400) K/uL MPV (7.4-10.4) fL Immature Gran % (Auto) % Neut % (Auto) % Lymph % (Auto) % [place] % (Auto) % Eos % (Auto) % Baso % (Auto) % Neut # (Auto) (1.4-6.5) K/uL Lymph # (Auto) (1.2-3.4) K/uL [place] # (Auto) (0.11-0.59) K/uL Eos # (Auto) (0-0.5) K/uL Baso # (Auto) (0-0.2) K/uL Immature Gran # (Auto) (0.00-0.02) K/uL PT (9.0-12.0) Seconds INR (0.9-1.1) APTT (21.0-31.0) Seconds PTT Ratio Sodium (136-145) mmol/L Potassium (3.5-5.1) mmol/L Chloride (98-107) mmol/L Carbon Dioxide (21-32) mmol/L Anion Gap (3-11) BUN (7-18) mg/dl Creatinine (0.6-1.2) mg/dl Est Cr Clr Drug Dosing ml/min Est GFR ( Amer) ml/min Est GFR (Non-Af Amer) ml/min BUN/Creatinine Ratio (10-20) Glucose (70-99) mg/dl Calcium (8.5-10.1) mg/dl Magnesium (1.8-2.4) mg/dl Total Bilirubin (0.2-1) mg/dl AST (15-37) U/L ALT (12-78) U/L Alkaline Phosphatase (45-117) U/L Troponin I (0-0.045) ng/ml Total Protein (6.4-8.2) gm/dl Albumin (3.4-5.0) gm/dl Globulin (2.5-4.0) gm/dl Albumin/Globulin Ratio (0.9-2) Urine Opiates Screen Pos H (Neg) Ur Methadone, Qual Neg (Neg) Urine Barbiturates Neg (Neg) Ur Phencyclidine (PCP) Neg (Neg) U Amphetamin/Meth Scrn Neg (Neg) MDMA (Ecstasy) Screen Neg (Neg) U Benzodiazepines Scrn Neg (Neg) Ur Cocaine Metabolite Neg (Neg) U Marijuana (THC) Screen Neg (Neg) Ethyl Alcohol mg/dL < 3.0 (0-3) mg/dl COVID-19 Eval Order SARS-CoV-2 (PCR) (Negative) Blood Type Antibody Screen Imaging Data Radiologist's Impression: Chest X-Ray 01/07/21 13:04 XR chest 1V portable INDICATION: MN ^Stroke Like Symptoms . TECHNIQUE: Single frontal radiograph of the chest was obtained. Comparison: Comparison is made to chest one view 01/06/2021 FINDINGS: Stable median sternotomy wires including fractured second wire. Calcified aortic knob is seen. The cardiomediastinal silhouette is stable. The lungs are clear. No evidence of pleural effusion or pneumothorax. IMPRESSION: No acute chest disease. ACT 112: Negative or not required by law. Electronically signed by: Nirav Wall M.D. 01/07/2021 1:[address] 01/07/21 13:[address] DOSE: 537.48 mGy.cm HISTORY: Dysarthria and falls eval for stroke TECHNIQUE: Multiaxial CT images of the head were performed without the use of intravenous contrast. Automated exposure control was utilized for this study. A dose lowering technique was utilized adhering to the principles of ALARA. Comparison: Head CT 01/06/2021. Findings: The paranasal sinuses and mastoid air cells are clear. The calvarium and skull base are intact. There is no mass, hematoma, midline shift, acute infarct. White matter hypodensity is nonspecific but suggestive of microvascular ischemic change. The ventricles and sulci demonstrate mild age-related involutional changes. Impression: No significant change compared to the prior study. No acute intracranial abnormality. ACT 112: Negative or not required by law. Electronically signed by: Jose Steinberg M.D. 01/07/2021 1:47 PM Brain MRI 01/07/21 14:16 MR brain wo con INDICATION: MN ^^ataxia/dysarthria eval for stroke TECHNIQUE: Multiplanar and multisequence MR images of the brain were obtained without intravenous contrast. Comparison: Comparison is made to CT head 01/07/2021 FINDINGS: Exam is limited by patient motion. No abnormal restricted diffusion is identified. Foci of T2 and FLAIR hyperintensity are noted in the paraventricular areas consistent with chronic small vessel ischemic disease. There is no evidence of acute intraparenchymal hemorrhage. No extra axial fluid collections are seen. There are no masses, mass effect, or midline shift. Ex vacuo ventriculomegaly and sulcal enlargement is n oted compatible with diffuse encephalomalacia. The corpus callosum, pituitary gland, and cerebellar tonsils appear grossly unremarkable. Flow voids of the major intracranial arterial vessels are identified. The imaged portions of the paranasal sinuses, mastoid air cells, and orbits are unremarkable. IMPRESSION: Limited exam with age-appropriate changes but without acute abnormality. In particular, no evidence of acute infarct. ACT 112: Negative or not required by law. Electronically signed by: Nirav Wall M.D. 01/07/2021 4:38 PM Head MRA 01/07/21 14:16 MR angio head wo con HISTORY: 70 years-old Female ataxia/dysarthria eval for stroke acute strokelike symptoms COMPARISON: Head CT of same day TECHNIQUE: MRA of the head is obtained without the use of IV contrast utilizing 3-D [id number] sequencing with MIP reformats. All measurements were obtained utilizing NASCET criteria. FINDINGS: Motion degraded exam. The middle and anterior cerebral arteries appear patent. The imaged vertebral, basilar and posterior cerebral arteries are patent. No aneurysm, high-grade stenosis or arterial occlusion identified. IMPRESSION: 1. Motion degraded exam. 2. No aneurysm, arterial occlusion or high-grade stenosis identified. ACT 112: Negative or not required by law. The above report was generated using voice recognition software. It may contain grammatical, syntax or spelling errors. Electronically signed by: Phil Gillette M.D. 01/07/2021 4:22 PM Neck MRA 01/07/21 14:16 MR angio neck wo con HISTORY: 70 years-old Female ataxia/dysarthria eval for stroke acute strokelike symptoms COMPARISON: Brain MRI of same day TECHNIQUE: MRA of the neck was obtained without the use of contrast utilizing 3- D [id number] sequencing with MIP reformats. All measurements were obtained according to NASCET criteria. FINDINGS: Three-vessel morphology of the thoracic aortic arch. Patent common and internal carotid arteries. Codominant and patent vertebral arteries. IMPRESSION: Unremarkable MRA of the neck. ACT 112: Negative or not required by law. The above report was generated using voice recognition software. It may contain grammatical, syntax or spelling errors. Electronically signed by: Phil Gillette M.D. 01/07/2021 5:53 PM ECG Data Attestation: I personally reviewed and interpreted this ECG as follows: Indication: + other (Strokelike symptoms) Rate (beats per minute): 64 Rhythm: + normal sinus ECG [place]: + Normal ECG ST segments: no ST elevation ECG Findings: no PVCs MDM Narrative I did evaluate the patient as noted above. The patient is presenting with dysarthria and difficulty walking since 7:30 AM this morning. She states that yesterday she fell because she had some spasms in her body and hit her head. She was seen here and had a negative work-up and was sent home with a walking boot. She does admit to using marijuana last night because she was extremely a nxious due to the recent of her and the today. She used marijuana at 9 PM and states that she did not inhale although she did feel its effects. She did not feel the effects of marijuana when she woke up this morning. She did go to her 's and later in the day used one of his old oxycodones because of her right foot pain. She does have some symptoms concerning for stroke and has a prior history of 2 strokes but a stroke alert was not called because she is not an IV TPA candidate. She has had symptoms that were present upon awakening and her last known well was 9 PM yesterday. IV access was established. I did place an order for continuous cardiac monitoring. The monitor showed normal sinus rhythm at a rate of 65 bpm. I did order and personally review the patient's 12-lead EKG as described above. She has no acute ischemic changes. I did order and personally reviewed the images of the patient's chest x-ray as described above. There is no evidence of acute process. The patient is a dialysis patient and last had dialysis about 3 days ago. She missed her dialysis yesterday. She does state that she makes about 20 ounces of urine a day. I did therefore discussed the case with Dr. Ramirez who is her equipment manager. She stated that we could do a CT angiogram if necessary and the patient could be dialyzed tomorrow or tonight. I did order and review the patient's blood work as noted in the electronic medical record. CBC demonstrates anemia with a hemoglobin of 10. Her electrolytes show a sodium of 134. Her creatinine is elevated at 6.72. Her potassium is 4.3. Magnesium is 2.7 and calcium is 8.1. Troponin is negative. I did order a CT of the head. I did review the images myself as well as the radiology report as described above. There is no evidence of acute intracranial abnormality. I did reassess the patient. I did order a urine drug screen which is positive for opiates given that she recently took oxycodone. Serum alcohol is negative. I did discuss case with Dr. Alisha Keys of neurology. She thought the myoclonic spasms that the patient was having could be related to her not receiving dialysis. She agreed with my plan to hospitalize the patient and obtain MRI and MRI of the brain without contrast. I did discuss the plan with the patient who is agreeable. I did discuss the case with the hospitalist and special education case manager. I did order the MRI and MRA which is currently pending. Impression & Plan Dysarthria, End stage renal disease, Ataxia, Missed dialysis, Anemia Discharge Plan Visit Data Chief Complaint: Fall Stated Complaint: Weakness ED Provider: Macario Mccord Discharge Problem: Dysarthria, End stage renal disease, Ataxia, Missed dialysis, Anemia Patient Disposition: Being Evaluated by Hospitalist Forms Stand Alone Forms: My [facility] Prescriptions Prescriptions: No Action mirtazapine 30 mg tablet 30 mg PO HS RF: 0 cholecalciferol (vitamin D3) [Vitamin D3] 50 mcg (2,000 unit) Capsule 2,000 unit PO QAM RF: 0 amlodipine [Norvasc] 10 mg tablet 10 mg PO QAM RF: 0 hydralazine 25 mg Tablet 50 mg PO QPM RF: 0 hydroxyzine HCl 10 mg Tablet 10 mg PO Q6 PRN (Reason: Anxiety) RF: 0 Tradjenta 5 mg Tablet 5 mg PO QAM RF: 0 potassium 99 mg Tablet 99 mg PO QAM RF: 0 nitroglycerin 0.4 mg Tablet, Sublingual 0.4 mg sublingual UD PRN (Reason: Angina) RF: 0 sertraline [Zoloft] 100 mg Tablet 150 mg PO QAM RF: 0 clopidogrel [Plavix] 75 mg Tablet 75 mg PO QAM RF: 0 aspirin 81 mg Tablet,Delayed Release (Dr/Ec) 81 mg PO QAM RF: 0 levothyroxine 25 mcg Tablet 25 mcg PO QAM RF: 0 montelukast [Singulair] 10 mg Tablet 10 mg PO HS RF: 0 fluticasone propionate [Flonase Allergy Relief] 50 mcg/actuation Gerl[place],Suspension 1 spray INTRANASAL DAILY PRN (Reason: Nasal Congestion) RF: 0 cyclobenzaprine 5 mg Tablet 5 mg PO TID PRN (Reason: Pain) RF: 0 azelastine 0.15 % (205.5 mcg) [place]lach,Non-Aerosol 1 spray INTRANASAL QAM RF: 0 Breo Ellipta 100-25 mcg/dose Blister With Device 1 inh INHALATION QAM RF: 0 albuterol sulfate 90 mcg/actuation Aerosol Powdr Breath Activated 2 puff INHALATION QID PRN (Reason: Shortness Of Breath) RF: 0 ondansetron 4 mg Tablet,Disintegrating 4 mg PO Q6H PRN (Reason: Nausea) RF: 0 sevelamer carbonate [Renvela] 800 mg Tablet 1,600 mg PO TIDM RF: 0 Belsomra 20 mg Tablet 20 mg PO HS RF: 0 Referrals Referrals: Ac Mcmanus, [Primary Care Provider] -
[2021-01-07 13:24] LABS: Basophils # (auto) 0.01 K/uL (0-0.2); Basophils % (auto) 0.1 %; Eosinophils % (auto) 1.2 %; Immature Granulocytes # (auto) 0.02 K/uL (0.00-0.02); Immature Granulocytes % (auto) 0.2 %; Lymphocytes # (auto) 0.81 K/uL (1.2-3.4); Lymphocytes % (auto) 9.9 %; Mean Corpuscular Hgb Conc 32.3 g/dL (32-36); Mean Corpuscular Volume 89.9 fL (80-100); Mean Platelet Volume 9.3 fL (7.4-10.4); Monocytes # (auto) 0.48 K/uL (0.11-0.59); Monocytes % (auto) 5.9 %; Neutrophils # (auto) 6.73 K/uL (1.4-6.5); Neutrophils % (auto) 82.7 %; Platelet Count 153 K/uL (130-400); RDW Coefficient of Variation 14.3 % (11.5-14.5); RDW Standard Deviation 47.3 fL (36.4-46.3); Red Blood Count 3.45 M/uL (4.2-5.4); White Blood Count 8.15 K/uL (4.8-10.8)
[2021-01-07 13:36] LABS: Partial Thromboplastin Ratio 1.1; Partial Thromboplastin Time 29.4 Seconds (21.0-31.0); Prothrombin Time 9.8 Seconds (9.0-12.0)
--- NOTE | 2021-01-07 13:45 | XRay Report ---
XR chest 1V portable INDICATION: MN ^Stroke Like Symptoms . TECHNIQUE: Single frontal radiograph of the chest was obtained. Comparison: Comparison is made to chest one view 01/06/2021 FINDINGS: Stable median sternotomy wires including fractured second wire. Calcified aortic knob is seen. The ca rdiomediastinal silhouette is stable. The lungs are clear. No evidence of pleural effusion or pneumot horax. IMPRESSION: No acute chest disease. ACT 112: Negative or not required by law. Electronically signed by: Nirav Wall M.D. 01/07/2021 1:44 PM
--- NOTE | 2021-01-07 13:49 | CT Scan Report ---
HEAD CT NONCONTRAST CT DOSE: 537.48 mGy.cm HISTORY: Dysarthria and falls eval for stroke TECHNIQUE: Multiaxial CT images of the head were performed without the use of intravenous contrast. A utomated exposure control was utilized for this study. A dose lowering technique was utilized adheri ng to the principles of ALARA. Comparison: Head CT 01/06/2021. Findings: The paranasal sinuses and mastoid air cells are clear. The calvarium and skull base are int act. There is no mass, hematoma, midline shift, acute infarct. White matter hypodensity is nonspecifi c but suggestive of microvascular ischemic change. The ventricles and sulci demonstrate mild age-rela drea involutional changes. Impression: No significant change compared to the prior study. No acute intracranial abnormality. ACT 112: Negative or not required by law. Electronically signed by: Jose Steinberg M.D. 01/07/2021 1:47 PM
[2021-01-07 13:56] LABS: Alanine Aminotransferase 16 U/L (12-78); Albumin Globulin Ratio 0.7 (0.9-2); Albumin Level 2.8 gm/dl (3.4-5.0); Alkaline Phosphatase 100 U/L (45-117); Aspartate Aminotransferase 18 U/L (15-37); BUN Creatinine Ratio 9.1 (10-20); Bilirubin,Total 0.3 mg/dl (0.2-1); Blood Urea Nitrogen 61 mg/dl (7-18); Calcium 8.1 mg/dl (8.5-10.1); Carbon Dioxide 30 mmol/L (21-32); Chloride 97 mmol/L (98-107); Creatinine Clr Calc Pharmacy 6.7 ml/min; Est GFR (African American) 6.5 ml/min; Est GFR (Non-African American) 5.6 ml/min; Globulin 4.1 gm/dl (2.5-4.0); Glucose 148 mg/dl (70-99); Magnesium 2.7 mg/dl (1.8-2.4); Potassium 4.3 mmol/L (3.5-5.1); Sodium 134 mmol/L (136-145); Total Protein 6.9 gm/dl (6.4-8.2); Troponin I < 0.015 ng/ml (0-0.045)
[2021-01-07] MEDS ORDERED: NICOTINE 7 MG/24 HR TDSY TD STA (13:59)
[2021-01-07 14:55] LABS: Amphetamines+Metham, Urine Neg (Neg); Barbiturates, Urine Neg (Neg); Benzodiazepine, Urine Neg (Neg); Cocaine, Urine Neg (Neg); MDMA (Ecstacy), Urine Neg (Neg); Methadone, Urine Neg (Neg); Opiate, Urine Pos (Neg); Phencyclidine, Urine Neg (Neg)
--- NOTE | 2021-01-07 15:20 | History & Physical Report ---
Date of Service January 07, 2021 Assessment & Plan (1) Neurological symptoms: (2) CVA (cerebral vascular accident): Plan: History CVA Pt is 70 y/o F with PMH ESRD on dialysis on Sun schedule, DM II, CAD s/p CABG, HTN, dyslipidemia, COPD, CVA, hypothyroidism, depression, anxiety presented to ER with c/o slurred speech and difficulty walking upon awakening this morning. Also jerking movements. Did use marijuana last night and one oxycodone. DDX: TIA, CVA, med reaction CT Head: no cranial abnormality -Tele to monitor for arrhythmias -tox screen +opiates -lipid panel, A1C, TSH in a.m. -MRI brain and neck pending -Consider obtaining echo if MRI brain shows CVA -aspiration precautions -PT/OT consult -Patient intolerant to statin -Continue plavix, ASA -Neurology consult (3) End stage renal disease: Plan: ESRD on HD on , Sun Missed dialysis 01/06/21 Continue renal meds Nephrology consult, ER spoke to Dr Evans (4) DM2 (diabetes mellitus, type 2): Plan: A1c: 6.2 on 08/25/20 Hold home agents Novolog sliding scale per protocol (5) CAD (coronary artery disease): Plan: S/P CABG Denies chest pain, shortness of breath Continue aspirin, plavix (6) HTN (hypertension): Plan: Continue amlodipine, hydralazine (7) COPD (chronic obstructive pulmonary disease): Plan: Continue home inhalers (8) Anxiety: Plan: Depression Recent increased stress with of Continue sertraline DVT Prophylaxis -Heparin SQ Full Code as per discussion with pt Follows with Dr Ac Mcmanus for routine care Pt was seen and care coordinated with Dr Salter. See addendum History of Present Illness Chief Complaint: Slurred speech Primary Care Provider: Ac Mcmanus DO Pt is 70 y/o F with PMH ESRD on dialysis on Sun schedule, DM II, CAD s/p CABG, HTN, dyslipidemia, COPD, CVA, hypothyroidism, depression, anxiety presented to ER with c/o slurred speech and difficulty walking. Pt with fall yesterday and was seen in ER. She states fell because felt like had body spasm. Had negative CT head, CT cervical spine, thoracic spine and lumbar spine CTs without fracture, and unremarkable CT pelvis, right foot x-ray without fracture. Pt under increased stress with recent of her . Having increased anxiety. States last night used marijuana and felt "high". Denies any neuro symptoms before going to bed at 9PM. This morning when woke up at 7:30am noticed slurred speech and difficulty walking. Reports is off balance and feels dizzy with walking. Her son caught her from falling to the ground today. Patient also reports today with intermittent jerking of her body. patient reports does not feel "high" today. She also reports that she used a family members oxycodone for pain. Pt missed dialysis yesterday, last dialysis on 01/04/21. Patient states for the past 6 months has been having some confusion and feels this is at baseline. Denies fever/chills, diaphoresis, N/V/D/C, CARL, syncope, vision changes, neck pain, CP, SOB, orthopnea, palpitations, cough, sore throat, choking, otalgia, rhinorrhea, abdominal pain, paresthesias, extremity weakness, extremity edema, rashes, urinary symptoms. In ER CT head negative. Patient being admitted for further evaluation Allergies Allergy/AdvReac Type Severity Reaction Status Date / Time bee venom protein (honey bee) Allergy Intermediate MOUTH Verified 01/07/21 14:37 SWELLING prednisone Allergy Intermediate SWELLING Verified 01/07/21 14:37 OG HANDS, ITCHING, RASH tomato Allergy Intermediate Hives Verified 01/07/21 14:37 Penicillins Allergy Mild RASH Verified 01/07/21 14:37 rosuvastatin Allergy Mild SEVERE H/A Verified 01/07/21 14:37 trazodone AdvReac Severe Confusion Verified 01/07/21 14:37 Sgyukke-Jiq-Chd Reductase AdvReac Mild EFFECTED Verified 01/07/21 14:37 Inhibitor LIVER STUDIES Home Medications Medication Instructions Recorded Confirmed Type albuterol sulfate 90 mcg/actuation 2 puff INHALATION QID PRN 02/18/18 01/07/21 History breath activated powder inhaler aspirin 81 mg tablet,delayed 81 mg PO QAM 02/18/18 01/07/21 History release azelastine 205.5 mcg (0.15 %) 1 spray INTRANASAL QAM 02/18/18 01/07/21 History nasal spray clopidogrel 75 mg tablet (Plavix) 75 mg PO QAM 02/18/18 01/07/21 History cyclobenzaprine 5 mg tablet 5 mg PO TID PRN 02/18/18 01/07/21 History fluticasone propionate 50 1 spray INTRANASAL DAILY PRN 02/18/18 01/07/21 History mcg/actuation nasal spray,suspension (Flonase Allergy Relief) levothyroxine 25 mcg tablet 25 mcg PO QAM 02/18/18 01/07/21 History montelukast 10 mg tablet 10 mg PO HS 02/18/18 01/07/21 History (Singulair) sertraline 100 mg tablet (Zoloft) 150 mg PO QAM 02/18/18 01/07/21 History ondansetron 4 mg disintegrating 4 mg PO Q6H PRN 03/26/19 01/07/21 History tablet sevelamer carbonate 800 mg tablet 1,600 mg PO TIDM 03/26/19 01/07/21 History (Renvela) suvorexant 20 mg tablet (Belsomra) 20 mg PO HS 03/26/19 01/07/21 History amlodipine 10 mg tablet (Norvasc) 10 mg PO QAM 03/23/20 01/07/21 History cholecalciferol (vitamin D3) 50 2,000 unit PO QAM 03/23/20 01/07/21 History mcg (2,000 unit) capsule (Vitamin D3) hydralazine 25 mg tablet 50 mg PO QPM 03/23/20 01/07/21 History linagliptin 5 mg tablet (Tradjenta) 5 mg PO QAM 03/23/20 01/07/21 History nitroglycerin 0.4 mg sublingual 0.4 mg SUBLINGUAL UD PRN 03/23/20 01/07/21 History tablet potassium 99 mg tablet 99 mg PO QAM 03/23/20 01/07/21 History furosemide 40 mg tablet 40 mg PO DAILY 01/07/21 01/07/21 History levocetirizine 5 mg tablet 5 mg PO PM 01/07/21 01/07/21 History mirtazapine 15 mg tablet 15 mg PO HS 01/07/21 01/07/21 History Past Med/Surg History Medical History Anemia Anxiety Asthma Uses albuterol daily. Atrial fibrillation FOLLOWED BY DR. CARROLL AV fistula Depression Diabetes mellitus, type 2 oral med End stage renal disease receiving hemodiaylsis Sunday//Saturdays in [place]. Follows Dr. Ramirez ([place], [place]). Endometriosis stage 4 GERD (gastroesophageal reflux disease) Hyperlipidemia Hypertension no medications currently - experiencing hypotension Hypothyroidism Kidney failure STAGE 4 NO DIALYSIS Migraine Myocardial Infarction 2008 Osteoarthritis Stroke X 2 2014 Surgical History History of abdominal surgery UMBILICAL MESH REMOVED (NECROTIC) History of adenoidectomy History of appendectomy History of martha hole surgery 2013 AFTER CVA TO "REMOVED FLUID" History of cardiac cath 2007 AT [facility] History of cataract surgery RT/LEFT History of section X 3 History of cholecystectomy History of colonoscopy History of coronary artery bypass graft 2007 3 [facility] History of esophagogastroduodenoscopy (EGD) History of herniorrhaphy X 3 REPAIRS History of surgery LEFT FOOT/ANKLE FX REPAIR S/P FALL (HARDWARE) History of tonsillectomy History of tooth extraction History of total abdominal hysterectomy and bilateral salpingo-oophorectomy History of total knee replacement LEFT Hx of hand surgery LEFT HAND SURGERY "TOOK BONES OUT" S/P arteriovenous (AV) fistula creation Left arm S/P panniculectomy Family History (Updated 01/07/21 @ 19:33 by Jade Shin PA-C) Brother Family history of diabetes mellitus Coronary heart disease Mother Family history of diabetes mellitus Other No family history of adverse response to anesthesia Social History Smoking Status: Current every day smoker Tobacco Type: Cigarettes Cigarettes Per Day: 1; Second Hand Exposure: Yes; Do You Dip or Chew Tobacco: No; Hx Alcohol Use: No Hx Substance Use: Yes Last Used Substance: Days (ago) Substance Use Type Other:: unable to respond Preferred Language: Maltese Communication Ability: Effective Visual Impairment: No Limitations Community Representative Required: No Beliefs That Will Affect Care: None Current Living Situation: Alone Feels Safe at Home: Yes Safety Concerns: Feels Safe At This Time Assistive Devices: Brace/Splint/Immobilizer, Cane, Denture - Upper, Denture - Lower, Glasses and Walker Review of Systems Review of Systems: All systems reviewed & are unremarkable except as noted in HPI & below Physical Exam Physical Exam: General: no acute distress, WDWN Head: normocephalic, atraumatic Eyes: PERRL, EOM's intact, conjunctiva non-injected, anicteric ENT: normal inspection external ears, nose, mucous membranes dry Neck: supple, trachea midline Lungs: clear, no respiratory distress, no wheezing/rhonchi/rales CV: RRR, no murmur, no pretibial edema Abd: normal BS, soft, non-tender Ext: no cyanosis, no calf tenderness, right foot in ortho boot Neuro: A&O x 3, pt becomes tearful when talking of late . No nystagmus. Facial sensation is intact and symmetric. The face is strong and symmetric. Hearing grossly intact. Soft palate elevates symmetrically, no dysarthria. Shoulder shrug intact. Tongue is midline, normal movement, no fasciculations. +ataxic gait with walking Skin: warm, dry Results & Data Results & Data ([facility]) Vital Signs (Past 12 Hours) Vital Signs Resp BP BP Pulse Ox 01/07/21 14:01 20 156/74 H 98 01/07/21 11:29 131/67 93 Laboratory Results Short CBC 01/07/21 Range/Units 12:13 WBC 8.15 (4.8-10.8) K/uL Hgb 10.0 L (12.0-16.0) g/dL Hct 31.0 L (37-47) % Plt Count 153 (130-400) K/uL BMP 01/07/21 12:13 Sodium 134 L Potassium 4.3 Chloride 97 L Carbon Dioxide 30 BUN 61 H Creatinine 6.72 H* Glucose 148 H Calcium 8.1 L Cardiac Enzymes 01/07/21 Range/Units 12:13 Troponin I < 0.015 (0-0.045) ng/ml Liver Function 01/07/21 Range/Units 12:13 Total Bilirubin 0.3 (0.2-1) mg/dl AST 18 (15-37) U/L ALT 16 (12-78) U/L Alkaline Phosphatase 100 (45-117) U/L Albumin 2.8 L (3.4-5.0) gm/dl Diagnostic Findings Chest X-Ray 01/07/21 13:04 XR chest 1V portable INDICATION: MN ^Stroke Like Symptoms . TECHNIQUE: Single frontal radiograph of the chest was obtained. Comparison: Comparison is made to chest one view 01/06/2021 FINDINGS: Stable median sternotomy wires including fractured second wire. Calcified aortic knob is seen. The cardiomediastinal silhouette is stable. The lungs are clear. No evidence of pleural effusion or pneumothorax. IMPRESSION: No acute chest disease. ACT 112: Negative or not required by law. Electronically signed by: Nirav Wall M.D. 01/07/2021 1:[address] 01/07/21 13:[address] DOSE: 537.48 mGy.cm HISTORY: Dysarthria and falls eval for stroke TECHNIQUE: Multiaxial CT images of the head were performed without the use of intravenous contrast. Automated exposure control was utilized for this study. A dose lowering technique was utilized adhering to the principles of ALARA. Comparison: Head CT 01/06/2021. Findings: The paranasal sinuses and mastoid air cells are clear. The calvarium and skull base are intact. There is no mass, hematoma, midline shift, acute infarct. White matter hypodensity is nonspecific but suggestive of microvascular ischemic change. The ventricles and sulci demonstrate mild age-related involutional changes. Impression: No significant change compared to the prior study. No acute intracranial abnormality. ACT 112: Negative or not required by law. Electronically signed by: Jose Steinberg M.D. 01/07/2021 1:47 PM Supervising Physician Co-Signing Physician Notes Attending addendum The patient was seen and examined in the emergency room She is a patient on hemodialysis and she missed her dialysis yesterday She has lost her day before yesterday and has been very upset She used oxycodone and also marijuana to control pain and following that she was unsteady and was taken to emergency room for further evaluation On examination Very anxious with dryness of the mouth Has tremors involving the outstretched hands Chest-clear to auscultate bilaterally Heart-S1-S2, regular abdomen Abdomen-benign Extremities-negative for edema Denies any headache, blurred vision, numbness or tingling involving extremities Admission labs, imaging studies reviewed Severe anxiety with unsteady on feet Has increased pain in the leg and used her 's narcotic and also marijuana to control pain Doubt any stroke but will rule out with relevant investigation Continue hemodialysis Agree with assessment and plan as outlined above by JAZMIN Razo DR
--- NOTE | 2021-01-07 16:23 | Magnetic Resonance Report ---
MR angio head wo con HISTORY: 70 years-old Female ataxia/dysarthria eval for stroke acute strokelike symptoms COMPARISON: Head CT of same day TECHNIQUE: MRA of the head is obtained without the use of IV contrast utilizing 3-D [id number] se quencing with MIP reformats. All measurements were obtained utilizing NASCET criteria. FINDINGS: Motion degraded exam. The middle and anterior cerebral arteries appear patent. The imaged vertebral, basilar and posterior cerebral arteries are patent. No aneurysm, high-grade stenosis or arterial occl usion identified. IMPRESSION: 1. Motion degraded exam. 2. No aneurysm, arterial occlusion or high-grade stenosis identified. ACT 112: Negative or not required by law. The above report was generated using voice recognition software. It may contain grammatical, syntax o r spelling errors. Electronically signed by: Phil Gillette M.D. 01/07/2021 4:22 PM
--- NOTE | 2021-01-07 16:40 | Magnetic Resonance Report ---
MR brain wo con INDICATION: MN ^ataxia/dysarthria eval for stroke TECHNIQUE: Multiplanar and multisequence MR images of the brain were obtained without intravenous con trast. Comparison: Comparison is made to CT head 01/07/2021 FINDINGS: Exam is limited by patient motion. No abnormal restricted diffusion is identified. Foci of T2 and FLAIR hyperintensity are noted in the paraventricular areas consistent with chronic small vessel ischemic disease. There is no evidence of acute intraparenchymal hemorrhage. No extra axial fluid collections are seen. There are no masses, ma ss effect, or midline shift. Ex vacuo ventriculomegaly and sulcal enlargement is noted compatible wit h diffuse encephalomalacia. The corpus callosum, pituitary gland, and cerebellar tonsils appear gross ly unremarkable. Flow voids of the major intracranial arterial vessels are identified. The imaged portions of the para nasal sinuses, mastoid air cells, and orbits are unremarkable. IMPRESSION: Limited exam with age-appropriate changes but without acute abnormality. In particular, no evidence o f acute infarct. ACT 112: Negative or not required by law. Electronically signed by: Nirav Wall M.D. 01/07/2021 4:38 PM
--- NOTE | 2021-01-07 17:55 | Magnetic Resonance Report ---
MR angio neck wo con HISTORY: 70 years-old Female ataxia/dysarthria eval for stroke acute strokelike symptoms COMPARISON: Brain MRI of same day TECHNIQUE: MRA of the neck was obtained without the use of contrast utilizing 3-D [id number] sequ encing with MIP reformats. All measurements were obtained according to NASCET criteria. FINDINGS: Three-vessel morphology of the thoracic aortic arch. Patent common and internal carotid arteries. Cod ominant and patent vertebral arteries. IMPRESSION: Unremarkable MRA of the neck. ACT 112: Negative or not required by law. The above report was generated using voice recognition software. It may contain grammatical, syntax o r spelling errors. Electronically signed by: Phil Gillette M.D. 01/07/2021 5:53 PM
[2021-01-07] MEDS ORDERED: GLUCOSE 40% GEL 15 GM TUBE PO PRN (21:31)
[2021-01-07] MEDS ORDERED: POLYETHYLENE (MIRALAX) 17 GM PACK PO PRN (21:31)
[2021-01-07] MEDS ORDERED: GLUCOSE 10 TABS/TUBE PO PRN (21:31)
[2021-01-07] MEDS ORDERED: CARBOHYDRATES FOR HYPOGLYCEMIA PO PRN (21:31)
[2021-01-07] MEDS ORDERED: GLUCAGON FOR INJ 1 MG VIAL SQ PRN (21:31)
[2021-01-07] MEDS ORDERED: DEXTROSE 50% 50 ML SYRINGE IV PRN (21:31)
[2021-01-07] MEDS ORDERED: PHARMACIST DISCHARGE MED REC CONSULT PRN (21:31)
[2021-01-07] MEDS ORDERED: FLUTICASONE PROPIONATE NA SPR 16 GM BTL NAE PRN (21:31)
[2021-01-07] MEDS ORDERED: ONDANSETRON INJ 2 MG/ML 2 ML VIAL IV PRN (21:31)
[2021-01-07] MEDS ORDERED: NITROGLYCERIN SL 0.4 MG/TAB TAB SL PRN (21:31)
[2021-01-07] MEDS ORDERED: ALBUTEROL HFA 8 GM INHALER INH PRN (22:01)
[2021-01-07] MEDS ORDERED: MIRTAZAPINE TAB 15 MG TAB PO SCH (22:30)
[2021-01-07] MEDS: MONTELUKAST SODIUM 10 MG TABLET PO SCH (23:10)
[2021-01-07] MEDS: ASPIRIN 81 MG ECTAB PO SCH (23:11)
[2021-01-07] MEDS: CLOPIDOGREL BISULFATE 75 MG TAB PO SCH (23:12)
[2021-01-07] MEDS: CETIRIZINE HCL 10 MG TABLET PO SCH (23:12)
[2021-01-07] MEDS: hydrALAZINE TAB 50 MG TAB PO SCH (23:13)
[2021-01-07] MEDS: INSULIN ASPART 100 UNITS/ML 3 ML PEN SC SCH (23:15)
[2021-01-07] MEDS: HEPARIN SOD 5,000 UNIT/0.5 ML VIAL SQ SCH (23:17)
[2021-01-08] MEDS: ACETAMINOPHEN 325 MG TAB PO PRN ×2 (00:05→13:57)
[2021-01-08] MEDS: MELATONIN 3 MG TAB PO PRN ×2 (00:05→20:54)
[2021-01-08] MEDS: LEVOTHYROXINE SODIUM 25 MCG TABLET PO SCH (06:02)
--- NOTE | 2021-01-08 06:43 | Electrocardiogram Report ---
Test Reason : Blood Pressure : / mmHG Vent. Rate : 064 BPM Atrial Rate : 064 BPM P-R Int : 172 ms QRS Dur : 084 ms QT Int : 430 ms P-R-T Axes : 063 030 033 degrees QTc Int : 443 ms Normal sinus rhythm Normal ECG When compared with ECG of 22-JUL-2019 16:07, T wave inversion no longer evident in Inferior leads Nonspecific T wave abnormality no longer evident in Anterior leads Confirmed by Bahman Cox ([id number]) on 01/08/2021 6:43:39 AM Referred By: Confirmed By:Bahman Cox
[2021-01-08 07:56] LABS: Basophils # (auto) 0.01 K/uL (0-0.2); Basophils % (auto) 0.2 %; Eosinophils # (auto) 0.18 K/uL (0-0.5); Eosinophils % (auto) 3.4 %; Hematocrit (blood only) 32.8 % (37-47); Hemoglobin 10.4 g/dL (12.0-16.0); Immature Granulocytes # (auto) 0.01 K/uL (0.00-0.02); Immature Granulocytes % (auto) 0.2 %; Lymphocytes # (auto) 1.02 K/uL (1.2-3.4); Lymphocytes % (auto) 19.5 %; Mean Corpuscular Hemoglobin 28.8 pg (25-34); Mean Corpuscular Hgb Conc 31.7 g/dL (32-36); Mean Corpuscular Volume 90.9 fL (80-100); Mean Platelet Volume 10.1 fL (7.4-10.4); Monocytes # (auto) 0.41 K/uL (0.11-0.59); Monocytes % (auto) 7.9 %; Neutrophils # (auto) 3.59 K/uL (1.4-6.5); Neutrophils % (auto) 68.8 %; Platelet Count 163 K/uL (130-400); RDW Coefficient of Variation 14.4 % (11.5-14.5); RDW Standard Deviation 47.5 fL (36.4-46.3); Red Blood Count 3.61 M/uL (4.2-5.4); White Blood Count 5.22 K/uL (4.8-10.8)
[2021-01-08] MEDS: amLODIPine BESYLATE 5 MG TAB PO SCH (07:56)
[2021-01-08] MEDS: FUROSEMIDE 40 MG TAB PO SCH (07:56)
[2021-01-08] MEDS: CHOLECALCIFEROL 1,000 UNITS 25 MCG TAB PO SCH (07:56)
[2021-01-08] MEDS: ASPIRIN 81 MG ECTAB PO SCH (07:56)
[2021-01-08] MEDS: CLOPIDOGREL BISULFATE 75 MG TAB PO SCH (07:57)
[2021-01-08] MEDS: SERTRALINE HCL 50 MG TABLET PO SCH (07:57)
[2021-01-08] MEDS: SEVELAMER HCL 800 MG TABLET PO SCH ×3 (07:57→16:45)
[2021-01-08 08:01] LABS: Estimated Average Glucose 137 mg/dl; Hemoglobin A1C 6.4 % (4.5-5.6)
[2021-01-08] MEDS: HEPARIN SOD 5,000 UNIT/0.5 ML VIAL SQ SCH ×2 (08:02→20:54)
[2021-01-08] MEDS ORDERED: SODIUM CHLORIDE 0.9% 1000ML 1,000 ML IV PRN (08:06)
[2021-01-08] MEDS: AZELASTINE HCL 0.1% NASAL 200 SPRAYS/27,400 MCG BTL SCH (08:06)
[2021-01-08] MEDS ORDERED: HEPARIN SOD (PORCINE) 1000 UNIT/ML IV ONE (08:06)
[2021-01-08 08:46] LABS: BUN Creatinine Ratio 8.9 (10-20); Calcium 7.8 mg/dl (8.5-10.1); Creatinine Clr Calc Pharmacy 6.4 ml/min; Est GFR (African American) 6.4 ml/min; Est GFR (Non-African American) 5.5 ml/min; Magnesium 2.6 mg/dl (1.8-2.4); Phosphorus 6.2 mg/dl (2.5-4.9); Potassium 4.1 mmol/L (3.5-5.1); Thyroid Stimulating Hormone 0.938 uIu/ml (0.300-4.500)
--- NOTE | 2021-01-08 09:59 | Nephrology Consultation ---
Date of Consultation January 08, 2021 Assessment & Plan (1) ESRD (end stage renal disease) on dialysis: tolerated treatment today w/ 2L UF; neuro sx have resolved /improved. chemistries and volume status ok; somewhat hypertensive but did not want aggressive uf with her neuro sx. hgb acceptable as well. >recommend repeat 2 hr tx on Sunday as inpt or outpt to optimize HTN -next full HD on History of Present Illness Reason for Consultation: ESRD on HD Requesting Physician: Dr Salter Attending Physician: Nolvia Salter MD History of Present Illness 70 y/o F was admitted yesterday for evaluation of stroke like sx after a fall; I am consulted for dialysis needs. She dialyzes [facility] at [facility]; missed 01/06 HD d/t a fall; states she twisted her R ankle. She was ataxic and dysarthric yesterday in ER on presentation. PMH includes COPD, reformed tobacco use, atrial fib; depression; remote stroke. Her about one week ago at home on comfort measures for cancer. when I evaluated her just after fininshing dialysis today she was not dyspneic or dysarthric; had no foot pain or N. tolerated 2L fluid removal at dialysis Allergies Allergy/AdvReac Type Severity Reaction Status Date / Time bee venom protein (honey bee) Allergy Intermediate MOUTH Verified 01/07/21 14:37 SWELLING prednisone Allergy Intermediate SWELLING Verified 01/07/21 14:37 OG HANDS, ITCHING, RASH tomato Allergy Intermediate Hives Verified 01/07/21 14:37 Penicillins Allergy Mild RASH Verified 01/07/21 14:37 rosuvastatin Allergy Mild SEVERE H/A Verified 01/07/21 14:37 trazodone AdvReac Severe Confusion Verified 01/07/21 14:37 Yknpdqm-Xbz-Ych Reductase AdvReac Mild EFFECTED Verified 01/07/21 14:37 Inhibitor LIVER STUDIES Home Medications Medication Instructions Recorded Confirmed Type albuterol sulfate 90 mcg/actuation 2 puff INHALATION QID PRN 02/18/18 01/07/21 History breath activated powder inhaler aspirin 81 mg tablet,delayed 81 mg PO QAM 02/18/18 01/07/21 History release azelastine 205.5 mcg (0.15 %) 1 spray INTRANASAL QAM 02/18/18 01/07/21 History nasal spray clopidogrel 75 mg tablet (Plavix) 75 mg PO QAM 02/18/18 01/07/21 History cyclobenzaprine 5 mg tablet 5 mg PO TID PRN 02/18/18 01/07/21 History fluticasone propionate 50 1 spray INTRANASAL DAILY PRN 02/18/18 01/07/21 History mcg/actuation nasal spray,suspension (Flonase Allergy Relief) levothyroxine 25 mcg tablet 25 mcg PO QAM 02/18/18 01/07/21 History montelukast 10 mg tablet 10 mg PO HS 02/18/18 01/07/21 History (Singulair) sertraline 100 mg tablet (Zoloft) 150 mg PO QAM 02/18/18 01/07/21 History ondansetron 4 mg disintegrating 4 mg PO Q6H PRN 03/26/19 01/07/21 History tablet sevelamer carbonate 800 mg tablet 1,600 mg PO TIDM 03/26/19 01/07/21 History (Renvela) suvorexant 20 mg tablet (Belsomra) 20 mg PO HS 03/26/19 01/07/21 History amlodipine 10 mg tablet (Norvasc) 10 mg PO QAM 03/23/20 01/07/21 History cholecalciferol (vitamin D3) 50 2,000 unit PO QAM 03/23/20 01/07/21 History mcg (2,000 unit) capsule (Vitamin D3) hydralazine 25 mg tablet 50 mg PO QPM 03/23/20 01/07/21 History linagliptin 5 mg tablet (Tradjenta) 5 mg PO QAM 03/23/20 01/07/21 History nitroglycerin 0.4 mg sublingual 0.4 mg SUBLINGUAL UD PRN 03/23/20 01/07/21 History tablet potassium 99 mg tablet 99 mg PO QAM 03/23/20 01/07/21 History furosemide 40 mg tablet 40 mg PO DAILY 01/07/21 01/07/21 History levocetirizine 5 mg tablet 5 mg PO PM 01/07/21 01/07/21 History mirtazapine 15 mg tablet 15 mg PO HS 01/07/21 01/07/21 History Patient History Medical History Anemia Anxiety Asthma Uses albuterol daily. Atrial fibrillation FOLLOWED BY DR. CARROLL AV fistula Depression Diabetes mellitus, type 2 oral med End stage renal disease receiving hemodiaylsis Sunday//Saturdays in [place]. Follows Dr. Ramirez ([place], [place]). Endometriosis stage 4 GERD (gastroesophageal reflux disease) Hyperlipidemia Hypertension no medications currently - experiencing hypotension Hypothyroidism Kidney failure STAGE 4 NO DIALYSIS Migraine Myocardial Infarction 2008 Osteoarthritis Stroke X 2 2014 Surgical History History of abdominal surgery UMBILICAL MESH REMOVED (NECROTIC) History of adenoidectomy History of appendectomy History of martha hole surgery 2013 AFTER CVA TO "REMOVED FLUID" History of cardiac cath 2007 AT [facility] History of cataract surgery RT/LEFT History of section X 3 History of cholecystectomy History of colonoscopy History of coronary artery bypass graft 2007 3 VESSELS AT [place] History of esophagogastroduodenoscopy (EGD) History of herniorrhaphy X 3 REPAIRS History of surgery LEFT FOOT/ANKLE FX REPAIR S/P FALL (HARDWARE) History of tonsillectomy History of tooth extraction History of total abdominal hysterectomy and bilateral salpingo-oophorectomy History of total knee replacement LEFT Hx of hand surgery LEFT HAND SURGERY "TOOK BONES OUT" S/P arteriovenous (AV) fistula creation Left arm S/P panniculectomy Family History Brother Family history of diabetes mellitus Coronary heart disease Mother Family history of diabetes mellitus Other No family history of adverse response to anesthesia Social History Smoking Status: Current every day smoker Tobacco Type: Cigarettes Cigarettes Per Day: 1; Second Hand Exposure: Yes; Do You Dip or Chew Tobacco: No; Hx Alcohol Use: No Hx Substance Use: Yes Last Used Substance: Days (ago) Substance Use Type Other:: unable to respond Preferred Language: Ukrainian Communication Ability: Effective Visual Impairment: No Limitations Mirror Inspector Required: No Beliefs That Will Affect Care: None Current Living Situation: Alone Feels Safe at Home: Yes Safety Concerns: Feels Safe At This Time Assistive Devices: Walker Review of Systems Review of Systems: All systems reviewed & are unremarkable except as noted in HPI & below Physical Exam Constitutional: well developed and well nourished; no acute distress Eyes: EOM intact bilaterally ENMT: Ears: no external ear abnormality Nose: no external nose abnormality Mouth: + dry oral mucous membranes Neck: no nuchal rigidity Respiratory: normal respiratory effort Auscultation: + diminished lung sounds Cardiovascular: Rate/Rhythm: regular rate and regular rhythm Extremities: + AV fistula; no edema Gastrointestinal (Abdomen): Inspection/Auscultation: normal bowel sounds Percussion/Palpation: abdomen soft; abdomen nontender Musculoskeletal: Extremities: strength 5/5 throughout Skin: no rashes, warm and dry Neurologic: de paz, fluent speech, no tremor Psychiatric: Orientation: alert and oriented x 3 Results & Data ([facility]) Vital Signs (Past 12 Hours) Vital Signs Temp Pulse Pulse Resp BP Pulse Ox 01/08/21 07:40 36.4 C L 74 18 161/69 H 90 01/08/21 03:55 36.8 C 58 L 16 121/49 L 92 01/08/21 01:47 36.4 C L 66 18 169/73 H 92 01/08/21 01:43 72 01/07/21 23:08 69 01/07/21 23:00 36.5 C 66 18 120/61 91 Laboratory Results 01/08/21 07:23 01/08/21 07:23 Diagnostic Findings CXR > no acute CP disease Head CT > no acute IC process Brain MRI, Head/ Neck MRA > no findings of infarct or stenosis or other concerning lesions; age related changes
--- NOTE | 2021-01-08 11:47 | Consultation Report ---
DATE OF SERVICE: 01/08/2021 REASON FOR CONSULTATION: Neurologic symptoms. HISTORY OF PRESENT ILLNESS: The patient is a 70-year-old presumed right-handed female with end-stage renal disease, on dialysis on Sunday, and Sunday, type 2 diabetes, coronary artery disease, hypertension, hyperlipidemia, COPD, history of stroke, hypothyroidism, depression and anxiety, presented yesterday to the Emergency Room with slurred speech, difficulty walking upon awakening in the morning. The patient has noted jerking movements of her extremities including one significant enough to make her fall. That has been going on for several months and she indicates over a relatively short time ago, her Remeron went from p.r.n. to daily. That is the only major regular medication change that she has made. She notes that in retrospect, she had jerking previously when she was on Remeron. There is no alteration of consciousness. Although she is reported to have COPD, she indicates that she does not have any lung problems, she is not short of breath. Her last Sunday and the patient has been grieving. She has noted since his a week ago that her speech is a little less clear and that she is having some difficulty with word finding. On the day of his a week ago, she took one of his oxycodone 15 mg to help with some ankle pain. On the evening prior to admission after the patient's 's and after missing dialysis, she smoked marijuana, took gabapentin, which she occasionally takes for restless legs, but had not taken for some time, dose unknown, took an oxycodone and Remeron. She went to sleep and upon awakening, her slurred speech was worse and her balance was worse and the jerking movements were similarly worse. Her lab data was notable for an H and H of 02/06, platelet count of 153. Chemistry, sodium 134, BUN and creatinine 61/6.72 with her last recorded creatinine in our system at 3.66. Her glucose was 148, calcium 8.1, magnesium 2.7. Transaminases normal. Ammonia level not tested. Tox screen notable for positive opiates, negative THC, negative ethanol. Chest x-ray; no acute disease, status post median sternotomy with fractured wire. CT of the head, which I have reviewed, shows no acute abnormality. White matter hypodensities suggestive of microvascular ischemic disease. MRI of the brain is limited secondary to motion, but no evidence of acute infarct. There is some ex vacuo ventriculomegaly and sulcal enlargement compatible with diffuse encephalomalacia. There is evidence of chronic small vessel cerebrovascular disease. MRA of the head shows no aneurysm, arterial occlusion or high-grade stenosis and is degraded by motion. MRA of the neck is unremarkable. The patient is much improved today. She indicates that her weight has been stable. There have been no fevers, chills, or sweats. No headache. No facial droop. No unilateral weakness, numbness, vertigo. She does admit to occasional nausea for which she takes Zofran. MEDICAL HISTORY: As above. Additionally, atrial fibrillation, AV fistula, endometriosis, reflux, hyperlipidemia, hypertension, migraines, myocardial infarction, stroke x2 in 2014. PAST SURGICAL HISTORY: Umbilical mesh removed, adenoidectomy, appendectomy. In 2014, had a martha hole surgery after stroke to remove fluid, cardiac cath, cataract surgery, , cholecystectomy, colonoscopy, bypass, herniorrhaphy x3, left foot and ankle repair, left knee replacement, tonsillectomy, tooth extraction, total hysterectomy, bilateral salpingo-oophorectomy, hand surgery, AV fistula and FAMILY HISTORY: Diabetes, coronary artery disease. SOCIAL HISTORY: The patient denies smoking, but the medical chart says she is a smoker. She does not drink alcohol. ALLERGIES: BEES, PREDNISONE, TOMATO, PENICILLIN, ROSUVASTATIN, TRAZODONE AND HMG-COA REDUCTASE INHIBITORS. HOME MEDICATIONS: Albuterol, aspirin, azelastine, Plavix 75, cyclobenzaprine p.r.n., levothyroxine, Singulair, sertraline, Zofran, Renvela, Belsomra, Norvasc, hydralazine, potassium, Lasix, levocetirizine, mirtazapine. PHYSICAL EXAMINATION: Blood pressure 156/80, pulse 56, temperature 36.4. The patient is on dialysis. She is awake and alert. Her speech and language are normal and her affect is appropriate. Naming, repetition and commands are normal. Rare minor myoclonic jerks are noted. Naming, repetitions and commands are normal. There are no carotid bruits, no heart murmurs. Pupils are post- surgical. I had difficulty visualizing the optic nerves. There are normal youssef, motility, facial symmetry. No resting tremor or cogwheel rigidity. I did not check strength in the left upper as this was her dialysis arm. Right upper extremity strength and bilateral lower extremity strength is full. There is no right drift and equal right rapid alternating movements. There is occasional asterixis/myoclonus in the right upper extremity. [id number] is minimally tremulous, but not dystaxic. Jdqt-yb-[id number] is normal. Reflexes are brisker at the right knee than the left, which may be due to prosthesis. Ankle jerks are reduced. Toes are downgoing. Vibration is present in toes. There is some mid to upper calf level to temperature. No bfet-fj-aepg sensory loss is noted. IMPRESSION AND PLAN: 1. This patient sounds as if she has had myoclonic jerks since Remeron has been started regularly. I would recommend discontinuing Remeron. I would also check an ammonia level. I would also discontinue Flexeril. It is entirely possible that the narcotics are also contributing. 2. The patient had a marked worsening on the a.m. of admission. That evening, she had taken gabapentin dose unknown (which she had not been taking regularly), Remeron, maybe Belsomra, oxycodone 15 mg and smoked marijuana. She gradually improved over the day yesterday and is at baseline without focal neurologic deficits. Her MRI shows no new event and I believe this to be toxic metabolic. 3. The patient does have a history of atrial fibrillation. I am assuming she is not on anticoagulants because of fall risk and prior intracranial hemorrhage. We will sign off. Job ID: [id number] [id number]
[2021-01-08] MEDS: INSULIN ASPART 100 UNITS/ML 3 ML PEN SC SCH ×4 (12:07→20:55)
--- NOTE | 2021-01-08 16:13 | Hospitalist Progress Note ---
Date of Service January 08, 2021 Assessment & Plan (1) Neurological symptoms: (2) CVA (cerebral vascular accident): Plan: History CVA Presented with strokelike symptoms Pt is 70 y/o F with PMH ESRD on dialysis on Sun schedule, DM II, CAD s/p CABG, HTN, dyslipidemia, COPD, CVA, hypothyroidism, depression, anxiety presented to ER with c/o slurred speech and difficulty walking upon awakening this morning. Also jerking movements. Did use marijuana last night and one oxycodone. DDX: TIA, CVA, med reaction especially involving Remeron, oxycodone and marijuana CT Head: no cranial abnormality, MRI of the head, MRA of the head and neck are unremarkable -tox screen +opiates -lipid panel, A1C, TSH in a.m.-all are unremarkable -PT/OT consult -Patient intolerant to statin -Continue plavix, ASA -Neurology consult-appreciate input and recommendation -We will discontinue Remeron Chronic and severe leg pain Tylenol does not work, she cannot take any NSAID's and will cram did not order either We will start a small dose of oxycodone She she reassured me that she will use oxycodone wisely (3) End stage renal disease: Plan: ESRD on HD on , Sun Missed dialysis 01/06/21 Continue renal meds Status post hemodialysis today and will have next dialysis on Sunday (4) DM2 (diabetes mellitus, type 2): Plan: A1c: 6.2 on 08/25/20 Hold home agents Novolog sliding scale per protocol (5) CAD (coronary artery disease): Plan: S/P CABG Denies chest pain, shortness of breath Continue aspirin, plavix (6) HTN (hypertension): Plan: Continue amlodipine, hydralazine (7) COPD (chronic obstructive pulmonary disease): Plan: Continue home inhalers (8) Anxiety: Plan: Depression Recent increased stress with of Continue sertraline DVT Prophylaxis -Heparin SQ Full Code as per discussion with pt Follows with Dr Ac Mcmanus for routine care Likely discharge tomorrow Admission and Anticipated Discharge Date Admission Date: January 07, 2021 Subjective 01/08/2021 The patient was seen and examined in medical telemetry unit She complains to have pain in the right leg and wants to have some medications for that Ultram does not work and Tylenol does not work and she cannot take any NSAID's Denies any other symptoms Review of Systems Review of Systems: All systems reviewed and are unremarkable except as noted below Physical Exam Physical Exam: Sitting on a chair without any acute distress Constitutional: well developed and well nourished; not ill appearing Eyes: PERRL, conjunctivae normal, anicteric sclerae ENMT: external ear and nose normal, oropharynx normal Neck: trachea midline, no thyromegaly Respiratory: no respiratory distress and no cough Auscultation: lungs clear to auscultation bilaterally Cardiovascular: Rate/Rhythm: regular rate and regular rhythm; not tachycardic Heart Sounds: normal S1 and normal S2; no murmur Gastrointestinal (Abdomen): Inspection/Auscultation: abdomen not distended Percussion/Palpation: abdomen soft; abdomen nontender Musculoskeletal: No acute arthritis in any joint Neurologic: Alert, awake and oriented x3 No focal sensory no motor deficit appreciated Results & Data Results & Data ([facility]) Vital Signs (Past 12 Hours) Vital Signs Temp Pulse Pulse Pulse Resp BP BP 01/08/21 15:47 74 01/08/21 15:29 37.1 C 74 16 164/67 H 01/08/21 13:56 37.0 C 69 18 149/67 H 01/08/21 13:40 36.4 C L 58 L 117/70 01/08/21 13:39 58 L 117/70 01/08/21 13:00 50 L 120/60 01/08/21 12:40 59 L 106/71 01/08/21 12:20 59 L 115/56 L 01/08/21 12:00 56 L 121/54 L 01/08/21 11:40 64 146/50 H 01/08/21 11:20 64 123/54 L 01/08/21 11:00 65 118/65 01/08/21 10:40 56 L 156/80 H 01/08/21 10:20 68 155/76 H 01/08/21 10:00 68 160/75 H 01/08/21 09:40 56 L 102/86 01/08/21 09:39 88 148/100 H 01/08/21 09:20 36.4 C L 68 01/08/21 07:40 36.4 C L 74 18 161/69 H Pulse Ox 01/08/21 15:47 01/08/21 15:29 92 01/08/21 13:56 91 01/08/21 13:40 01/08/21 13:39 01/08/21 13:00 01/08/21 12:40 01/08/21 12:20 01/08/21 12:00 01/08/21 11:40 01/08/21 11:20 01/08/21 11:00 01/08/21 10:40 01/08/21 10:20 01/08/21 10:00 01/08/21 09:40 01/08/21 09:39 01/08/21 09:20 01/08/21 07:40 90 Laboratory Results Short CBC 01/08/21 Range/Units 07:23 WBC 5.22 (4.8-10.8) K/uL Hgb 10.4 L (12.0-16.0) g/dL Hct 32.8 L (37-47) % Plt Count 163 (130-400) K/uL BMP 01/08/21 07:23 Sodium 137 Potassium 4.1 Chloride 97 L Carbon Dioxide 30 BUN 61 H Creatinine 6.83 H* Glucose 103 H Calcium 7.8 L Medications Administered Current Inpatient Medications Acetaminophen (Acetaminophen 325 Mg Tab) 650 mg PO Q4H PRN PRN Reason: Pain or Fever Stop: 02/06/21 21:30 Last Admin: 01/08/21 13:57 Dose: 650 mg Documented by: Albuterol (Albuterol Hfa 8 Gm Inhaler) 2 puffs INH Q6R PRN PRN Reason: Shortness Of Breath Stop: 02/06/21 22:00 Amlodipine Besylate (Amlodipine Besylate 5 Mg Tab) 10 mg PO [facility] Stop: 02/07/21 08:59 Last Admin: 01/08/21 07:56 Dose: 10 mg Documented by: Aspirin (Aspirin 81 Mg Ectab) 81 mg PO [facility] Stop: 02/06/21 22:29 Last Admin: 01/08/21 07:56 Dose: 81 mg Documented by: Azelastine HCl (Azelastine Hcl 0.1% Nasal 200 Sprays/27,400 Mcg Btl) 1 sprays NA [facility] Stop: 02/07/21 08:59 Last Admin: 01/08/21 08:06 Dose: 1 sprays Documented by: Cetirizine HCl (Cetirizine Hcl 10 Mg Tablet) 5 mg PO PM [facility]; Protocol Stop: 02/06/21 22:29 Last Admin: 01/07/21 23:12 Dose: 5 mg Documented by: Clopidogrel Bisulfate (Clopidogrel Bisulfate 75 Mg Tab) 75 mg PO QAM [facility] Stop: 02/06/21 22:29 Last Admin: 01/08/21 07:57 Dose: 75 mg Documented by: Dextrose (Dextrose 50% 50 Ml Syringe) 25 - 50 ml IV UD PRN; Protocol PRN Reason: Hypoglycemia Protocol Stop: 02/06/21 21:30 Fluticasone Propionate (Fluticasone Propionate Na Spr 16 Gm Btl) 1 sprays DENIZ DAILY PRN PRN Reason: Nasal Congestion Stop: 02/06/21 21:30 Furosemide (Furosemide 40 Mg Tab) 40 mg PO DAILY [facility] Stop: 02/07/21 08:59 Last Admin: 01/08/21 07:56 Dose: 40 mg Documented by: Glucagon (Glucagon For Inj 1 Mg Vial) 1 mg SQ UD PRN; Protocol PRN Reason: Hypoglycemia Protocol Stop: 02/06/21 21:30 Glucose (Glucose 10 Tabs/Tube) 4 - 8 tabs PO UD PRN; Protocol PRN Reason: Hypoglycemia Protocol Stop: 02/06/21 21:30 Glucose (Glucose 40% Gel 15 Gm Tube) 15 - 30 gm PO UD PRN; Protocol PRN Reason: Hypoglycemia Protocol Stop: 02/06/21 21:30 Heparin Sodium (Porcine) (Heparin Sod 5,000 Unit/0.5 Ml Vial) 5,000 units SQ Q12 [facility] Stop: 02/06/21 22:29 Last Admin: 01/08/21 08:02 Dose: 5,000 units Documented by: Hydralazine HCl (Hydralazine Tab 50 Mg Tab) 50 mg PO QPM [facility] Stop: 02/06/21 22:29 Last Admin: 01/07/21 23:13 Dose: 50 mg Documented by: Influenza Virus Vaccine (Influenza Vaccine High Dose Pf 65+ 0.7 Ml Syr) 0.7 ml IM .ONCE ONE Stop: 01/10/21 12:01 Insulin Aspart (Insulin Aspart 100 Units/Ml 3 Ml Pen) 0 units SC ACHS [facility] Stop: 02/06/21 22:29 Last Admin: 01/08/21 15:10 Dose: Not Given Documented by: Levothyroxine Sodium (Levothyroxine Sodium 25 Mcg Tablet) 25 mcg PO DAILYBB [facility] Stop: 02/07/21 06:29 Last Admin: 01/08/21 06:02 Dose: 25 mcg Documented by: Melatonin (Melatonin 3 Mg Tab) 3 mg PO HS PRN PRN Reason: Sleep Stop: 02/06/21 23:29 Last Admin: 01/08/21 00:05 Dose: 3 mg Documented by: Miscellaneous (Belsomra: Order Awaiting Action) 1 ea N/A QS [facility] Stop: 02/07/21 00:00 Last Admin: 01/08/21 08:05 Dose: Not Given Documented by: Miscellaneous (Carbohydrates For Hypoglycemia ) 15 - 30 gm PO UD PRN PRN Reason: Hypoglycemia Protocol Stop: 02/06/21 21:30 Miscellaneous Information (Pharmacist Discharge Med Rec Consult) 1 ea N/A UD PRN PRN Reason: Consult Stop: 02/06/21 21:30 Montelukast Sodium (Montelukast Sodium 10 Mg Tablet) 10 mg PO HS [facility] Stop: 02/06/21 22:29 Last Admin: 01/07/21 23:10 Dose: 10 mg Documented by: Nitroglycerin (Nitroglycerin Sl 0.4 Mg/Tab Tab) 0.4 mg SL UD PRN PRN Reason: Angina Stop: 02/06/21 21:30 Ondansetron HCl (Ondansetron Inj 2 Mg/Ml 2 Ml Vial) 4 mg IV Q6H PRN PRN Reason: Nausea Stop: 02/06/21 21:30 Last Admin: 01/08/21 11:29 Dose: 4 mg Documented by: Polyethylene Glycol (Polyethylene (Miralax) 17 Gm Pack) 17 gm PO DAILY PRN PRN Reason: Constipation Stop: 02/06/21 21:30 Sertraline HCl (Sertraline Hcl 50 Mg Tablet) 150 mg PO QAM [facility] Stop: 02/07/21 08:59 Last Admin: 01/08/21 07:57 Dose: 150 mg Documented by: Sevelamer HCl (Sevelamer Hcl 800 Mg Tablet) 1,600 mg PO TIDM [facility] Stop: 02/07/21 07:59 Last Admin: 01/08/21 15:01 Dose: Not Given Documented by: Vitamin D (Cholecalciferol 1,000 Units 25 Mcg Tab) 2,000 units PO [facility] Stop: 02/07/21 08:59 Last Admin: 01/08/21 07:56 Dose: 2,000 units Documented by:
[2021-01-08] MEDS: oxyCODONE/ACETAMINOPHEN 5mg/325mg TAB PO PRN (18:20)
[2021-01-08] MEDS: HEPARIN SOD (PORCINE) 1000 UNIT/ML IV SCH ×2 (19:14→19:15)
[2021-01-08] MEDS ORDERED: oxyCODONE HCL IR 5 MG TAB (IMMEDIATE RELEASE) PO STA (19:47)
[2021-01-08] MEDS: CETIRIZINE HCL 10 MG TABLET PO SCH (20:53)
[2021-01-08] MEDS: hydrALAZINE TAB 50 MG TAB PO SCH (20:54)
[2021-01-08] MEDS: MONTELUKAST SODIUM 10 MG TABLET PO SCH (20:54)
[2021-01-09] MEDS: oxyCODONE/ACETAMINOPHEN 5mg/325mg TAB PO PRN ×2 (03:35→11:44)
[2021-01-09] MEDS: LEVOTHYROXINE SODIUM 25 MCG TABLET PO SCH (05:49)
[2021-01-09] MEDS: CHOLECALCIFEROL 1,000 UNITS 25 MCG TAB PO SCH (08:05)
[2021-01-09] MEDS: AZELASTINE HCL 0.1% NASAL 200 SPRAYS/27,400 MCG BTL SCH (08:08)
[2021-01-09] MEDS: SEVELAMER HCL 800 MG TABLET PO SCH ×2 (08:09→11:45)
[2021-01-09] MEDS: SERTRALINE HCL 50 MG TABLET PO SCH (08:10)
[2021-01-09] MEDS: FUROSEMIDE 40 MG TAB PO SCH (08:10)
[2021-01-09] MEDS: ASPIRIN 81 MG ECTAB PO SCH (08:10)
[2021-01-09] MEDS: CLOPIDOGREL BISULFATE 75 MG TAB PO SCH (08:11)
[2021-01-09] MEDS: amLODIPine BESYLATE 5 MG TAB PO SCH (08:12)
[2021-01-09] MEDS: HEPARIN SOD 5,000 UNIT/0.5 ML VIAL SQ SCH (08:12)
[2021-01-09] MEDS: INSULIN ASPART 100 UNITS/ML 3 ML PEN SC SCH ×2 (08:19→11:41)
--- NOTE | 2021-01-09 11:11 | Hospitalist Progress Note ---
Date of Service January 09, 2021 Assessment & Plan (1) Neurological symptoms: Plan: Resolved (2) CVA (cerebral vascular accident): Plan: History CVA Presented with strokelike symptoms Pt is 70 y/o F with PMH ESRD on dialysis on , Sun schedule, DM II, CAD s/p CABG, HTN, dyslipidemia, COPD, CVA, hypothyroidism, depression, anxiety presented to ER with c/o slurred speech and difficulty walking upon awakening this morning. Also jerking movements. Did use marijuana last night and one oxycodone. DDX: TIA, CVA, med reaction especially involving Remeron, oxycodone and marijuana CT Head: no cranial abnormality, MRI of the head, MRA of the head and neck are unremarkable -tox screen +opiates -lipid panel, A1C, TSH in a.m.-all are unremarkable -PT/OT consult -Patient intolerant to statin -Continue plavix, ASA -Neurology consult-appreciate input and recommendation -We will discontinue Remeron -No more episodes of unsteadiness and or ataxia -Did very well with physical and Occupational Therapy Chronic and severe leg pain Tylenol does not work, she cannot take any NSAID's and will cram did not order either We will start a small dose of oxycodone She she reassured me that she will use oxycodone wisely She has been free of any pain with oxycodone (3) End stage renal disease: Plan: ESRD on HD on , Sat Missed dialysis 01/06/21 Continue renal meds Status post hemodialysis today and will have next dialysis on Sunday (4) DM2 (diabetes mellitus, type 2): Plan: A1c: 6.2 on 08/25/20 Hold home agents Novolog sliding scale per protocol (5) CAD (coronary artery disease): Plan: S/P CABG Denies chest pain, shortness of breath Continue aspirin, plavix (6) HTN (hypertension): Plan: Continue amlodipine, hydralazine (7) COPD (chronic obstructive pulmonary disease): Plan: Continue home inhalers (8) Anxiety: Plan: Depression Recent increased stress with of Continue sertraline DVT Prophylaxis -Heparin SQ Full Code as per discussion with pt Follows with Dr Ac Mcmanus for routine care Discharge home this afternoon Admission and Anticipated Discharge Date Admission Date: January 07, 2021 Subjective 01/08/2021 The patient was seen and examined in medical telemetry unit She complains to have pain in the right leg and wants to have some medications for that Ultram does not work and Tylenol does not work and she cannot take any NSAID's Denies any other symptoms 01/09/2021 The patient was seen and examined in medical telemetry unit Denies any complaints today and her leg pain is much improved with small dose of oxycodone She has had PT and OT evaluation and did very well She will be going home this afternoon Review of Systems Review of Systems: All systems reviewed and are unremarkable except as noted below Physical Exam Physical Exam: Sitting on a chair without any acute distress Constitutional: well developed and well nourished; not ill appearing Eyes: PERRL, conjunctivae normal, anicteric sclerae ENMT: external ear and nose normal, oropharynx normal Neck: trachea midline, no thyromegaly Respiratory: no respiratory distress and no cough Auscultation: lungs clear to auscultation bilaterally Cardiovascular: Rate/Rhythm: regular rate and regular rhythm; not tachycardic Heart Sounds: normal S1 and normal S2; no murmur Gastrointestinal (Abdomen): Inspection/Auscultation: abdomen not distended Percussion/Palpation: abdomen soft; abdomen nontender Musculoskeletal: No acute arthritis in any joint but uses a brace for the right leg Neurologic: Alert, awake and oriented x3. Generally weak but no focal neuro deficit Results & Data Results & Data ([facility]) Vital Signs (Past 12 Hours) Vital Signs Temp Pulse Pulse Resp BP Pulse Ox 01/09/21 08:00 36.9 C 59 L 18 173/76 H 93 01/09/21 07:34 58 L 01/09/21 04:13 36.8 C 70 20 155/76 H 92 01/09/21 00:47 50 L 01/08/21 23:29 36.8 C 60 18 135/57 L 94 Medications Administered Current Inpatient Medications Acetaminophen (Acetaminophen 325 Mg Tab) 650 mg PO Q4H PRN PRN Reason: Pain or Fever Stop: 02/06/21 21:30 Last Admin: 01/08/21 13:57 Dose: 650 mg Documented by: Albuterol (Albuterol Hfa 8 Gm Inhaler) 2 puffs INH Q6R PRN PRN Reason: Shortness Of Breath Stop: 02/06/21 22:00 Amlodipine Besylate (Amlodipine Besylate 5 Mg Tab) [facility] Stop: 02/07/21 08:59 Last Admin: 01/09/21 08:12 Dose: 10 mg Documented by: Aspirin (Aspirin 81 Mg Ectab) 81 mg PO QAM [facility] Stop: 02/06/21 22:29 Last Admin: 01/09/21 08:10 Dose: 81 mg Documented by: Azelastine HCl (Azelastine Hcl 0.1% Nasal 200 Sprays/27,400 Mcg Btl) 1 sprays NA QAM [facility] Stop: 02/07/21 08:59 Last Admin: 01/09/21 08:08 Dose: 1 sprays Documented by: Cetirizine HCl (Cetirizine Hcl 10 Mg Tablet) 5 mg PO PM [facility]; Protocol Stop: 02/06/21 22:29 Last Admin: 01/08/21 20:53 Dose: 5 mg Documented by: Clopidogrel Bisulfate (Clopidogrel Bisulfate 75 Mg Tab) [facility] Stop: 02/06/21 22:29 Last Admin: 01/09/21 08:11 Dose: 75 mg Documented by: Dextrose (Dextrose 50% 50 Ml Syringe) 25 - 50 ml IV UD PRN; Protocol PRN Reason: Hypoglycemia Protocol Stop: 02/06/21 21:30 Fluticasone Propionate (Fluticasone Propionate Na Spr 16 Gm Btl) 1 sprays DENIZ DAILY PRN PRN Reason: Nasal Congestion Stop: 02/06/21 21:30 Furosemide (Furosemide 40 Mg Tab) 40 mg PO DAILY [facility] Stop: 02/07/21 08:59 Last Admin: 01/09/21 08:10 Dose: 40 mg Documented by: Glucagon (Glucagon For Inj 1 Mg Vial) 1 mg SQ UD PRN; Protocol PRN Reason: Hypoglycemia Protocol Stop: 02/06/21 21:30 Glucose (Glucose 10 Tabs/Tube) 4 - 8 tabs PO UD PRN; Protocol PRN Reason: Hypoglycemia Protocol Stop: 02/06/21 21:30 Glucose (Glucose 40% Gel 15 Gm Tube) 15 - 30 gm PO UD PRN; Protocol PRN Reason: Hypoglycemia Protocol Stop: 02/06/21 21:30 Heparin Sodium (Porcine) (Heparin Sod 5,000 Unit/0.5 Ml Vial) 5,000 units SQ Q12 [facility] Stop: 02/06/21 22:29 Last Admin: 01/09/21 08:12 Dose: 5,000 units Documented by: Hydralazine HCl (Hydralazine Tab 50 Mg Tab) 50 mg PO QPM [facility] Stop: 02/06/21 22:29 Last Admin: 01/08/21 20:54 Dose: 50 mg Documented by: Influenza Virus Vaccine (Influenza Vaccine High Dose Pf 65+ 0.7 Ml Syr) 0.7 ml IM .ONCE ONE Stop: 01/10/21 12:01 Insulin Aspart (Insulin Aspart 100 Units/Ml 3 Ml Pen) 0 units SC ACHS [facility] Stop: 02/06/21 22:29 Last Admin: 01/09/21 08:19 Dose: Not Given Documented by: Levothyroxine Sodium (Levothyroxine Sodium 25 Mcg Tablet) 25 mcg PO DAILYBB [facility] Stop: 02/07/21 06:29 Last Admin: 01/09/21 05:49 Dose: 25 mcg Documented by: Melatonin (Melatonin 3 Mg Tab) 3 mg PO HS PRN PRN Reason: Sleep Stop: 02/06/21 23:29 Last Admin: 01/08/21 20:54 Dose: 3 mg Documented by: Miscellaneous (Belsomra: Order Awaiting Action) 1 ea N/A QS [facility] Stop: 02/07/21 00:00 Last Admin: 01/08/21 23:39 Dose: Not Given Documented by: Miscellaneous (Carbohydrates For Hypoglycemia ) 15 - 30 gm PO UD PRN PRN Reason: Hypoglycemia Protocol Stop: 02/06/21 21:30 Montelukast Sodium (Montelukast Sodium 10 Mg Tablet) 10 mg PO HS [facility] Stop: 02/06/21 22:29 Last Admin: 01/08/21 20:54 Dose: 10 mg Documented by: Nitroglycerin (Nitroglycerin Sl 0.4 Mg/Tab Tab) 0.4 mg SL UD PRN PRN Reason: Angina Stop: 02/06/21 21:30 Ondansetron HCl (Ondansetron Inj 2 Mg/Ml 2 Ml Vial) 4 mg IV Q6H PRN PRN Reason: Nausea Stop: 02/06/21 21:30 Last Admin: 01/08/21 11:29 Dose: 4 mg Documented by: Oxycodone/Acetaminophen (Oxycodone/Acetaminophen 5mg/325mg Tab) 1 tab PO Q8H PRN PRN Reason: Pain Stop: 01/22/21 16:12 Last Admin: 01/09/21 03:35 Dose: 1 tab Documented by: Polyethylene Glycol (Polyethylene (Miralax) 17 Gm Pack) 17 gm PO DAILY PRN PRN Reason: Constipation Stop: 02/06/21 21:30 Sertraline HCl (Sertraline Hcl 50 Mg Tablet) 150 mg PO [facility] Stop: 02/07/21 08:59 Last Admin: 01/09/21 08:10 Dose: 150 mg Documented by: Sevelamer HCl (Sevelamer Hcl 800 Mg Tablet) 1,600 [facility] Stop: 02/07/21 07:59 Last Admin: 01/09/21 08:09 Dose: 1,600 mg Documented by: Vitamin D (Cholecalciferol 1,000 Units 25 Mcg Tab) 2,000 [facility] Stop: 02/07/21 08:59 Last Admin: 01/09/21 08:05 Dose: 2,000 units Documented by:
--- NOTE | 2021-01-10 08:48 | Discharge Summary ---
Date of Service January 10, 2021 Admission HPI Per Admitting Provider Pt is 70 y/o F with PMH ESRD on dialysis on , , Sat schedule, DM II, CAD s/p CABG, HTN, dyslipidemia, COPD, CVA, hypothyroidism, depression, anxiety presented to ER with c/o slurred speech and difficulty walking. Pt with fall yesterday and was seen in ER. She states fell because felt like had body spasm. Had negative CT head, CT cervical spine, thoracic spine and lumbar spine CTs without fracture, and unremarkable CT pelvis, right foot x-ray without fracture. Pt under increased stress with recent of her . Having increased anxiety. States last night used marijuana and felt "high". Denies any neuro symptoms before going to bed at 9PM. This morning when woke up at 7:30am noticed slurred speech and difficulty walking. Reports is off balance and feels dizzy with walking. Her son caught her from falling to the ground today. Patient also reports today with intermittent jerking of her body. patient reports does not feel "high" today. She also reports that she used a family members oxyco done for pain. Pt missed dialysis yesterday, last dialysis on 01/04/21. Patient states for the past 6 months has been having some confusion and feels this is at baseline. Denies fever/chills, diaphoresis, N/V/D/C, CARL, syncope, vision changes, neck pain, CP, SOB, orthopnea, palpitations, cough, sore throat, choking, otalgia, rhinorrhea, abdominal pain, paresthesias, extremity weakness, extremity edema, rashes, urinary symptoms. In ER CT head negative. Patient being admitted for further evaluation Admission Exam Per Admitting Provider Physical Exam: General: no acute distress, WDWN Head: normocephalic, atraumatic Eyes: PERRL, EOM's intact, conjunctiva non-injected, anicteric ENT: normal inspection external ears, nose, mucous membranes dry Neck: supple, trachea midline Lungs: clear, no respiratory distress, no wheezing/rhonchi/rales CV: RRR, no murmur, no pretibial edema Abd: normal BS, soft, non-tender Ext: no cyanosis, no calf tenderness, right foot in ortho boot Neuro: A&O x 3, pt becomes tearful when talking of late . No nystagmus. Facial sensation is intact and symmetric. The face is strong and symmetric. Hearing grossly intact. Soft palate elevates symmetrically, no dysarthria. Shoulder shrug intact. Tongue is midline, normal movement, no fasciculations. +ataxic gait with walking Skin: warm, dry Principal Diagnosis Neurologic symptoms(myoclonic jerks)-resolved, end-stage renal disease on hemodialysis, right leg pain Discharge Exam Constitutional well developed and well nourished; not ill appearing Eyes PERRL, conjunctivae normal, anicteric sclerae ENMT external ear and nose normal, oropharynx normal Neck trachea midline, no thyromegaly Respiratory no respiratory distress and no cough Auscultation: lungs clear to auscultation bilaterally Cardiovascular Rate/Rhythm: regular rate and regular rhythm; not tachycardic Heart Sounds: normal S1 and normal S2; no murmur Gastrointestinal (Abdomen) Inspection/Auscultation: abdomen not distended Percussion/Palpation: abdomen soft; abdomen nontender Discharge Data Allergies Allergy/AdvReac Type Severity Reaction Status Date / Time bee venom protein (honey bee) Allergy Intermediate MOUTH Verified 01/07/21 14:37 SWELLING prednisone Allergy Intermediate SWELLING Verified 01/07/21 14:37 OG HANDS, ITCHING, RASH tomato Allergy Intermediate Hives Verified 01/07/21 14:37 Penicillins Allergy Mild RASH Verified 01/07/21 14:37 rosuvastatin Allergy Mild SEVERE H/A Verified 01/07/21 14:37 trazodone AdvReac Severe Confusion Verified 01/07/21 14:37 [id number] Reductase AdvReac Mild EFFECTED Verified 01/07/21 14:37 Inhibitor LIVER STUDIES Consultations 01/07/21 14:24 ED Decision to Admit Stat 01/07/21 15:20 Consult Nephrology Routine 01/07/21 21:31 Consult Neurology Routine Ordered Studies 01/07/21 13:04 CT head/brain wo con Stat 01/07/21 14:16 MR angio head wo con Stat MR angio neck wo con Stat MR brain wo con Stat Hospital Course (1) Neurological symptoms: Resolved (2) CVA (cerebral vascular accident): History CVA Presented with strokelike symptoms Pt is 70 y/o F with PMH ESRD on dialysis on , , Sat schedule, DM II, CAD s/p CABG, HTN, dyslipidemia, COPD, CVA, hypothyroidism, depression, anxiety presented to ER with c/o slurred speech and difficulty walking upon awakening this morning. Also jerking movements. Did use marijuana last night and one oxycodone. DDX: TIA, CVA, med reaction especially involving Remeron, oxycodone and marijuana CT Head: no cranial abnormality, MRI of the head, MRA of the head and neck are unremarkable -tox screen +opiates -lipid panel, A1C, TSH in a.m.-all are unremarkable -PT/OT consult -Patient intolerant to statin -Continue plavix, ASA -Neurology consult-appreciate input and recommendation -We will discontinue Remeron -No more episodes of unsteadiness and or ataxia -Did very well with physical and Occupational Therapy Chronic and severe leg pain Tylenol does not work, she cannot take any NSAID's and will cram did not order either We will start a small dose of oxycodone She she reassured me that she will use oxycodone wisely She has been free of any pain with oxycodone (3) End stage renal disease: ESRD on HD on , Sat Missed dialysis 01/06/21 Continue renal meds Status post hemodialysis today and will have next dialysis on Sunday (4) DM2 (diabetes mellitus, type 2): A1c: 6.2 on 08/25/20 Hold home agents Novolog sliding scale per protocol (5) CAD (coronary artery disease): S/P CABG Denies chest pain, shortness of breath Continue aspirin, plavix (6) HTN (hypertension): Continue amlodipine, hydralazine (7) COPD (chronic obstructive pulmonary disease): Continue home inhalers (8) Anxiety: Depression Recent increased stress with of Continue sertraline DVT Prophylaxis -Heparin SQ Full Code as per discussion with pt Follows with Dr Ac Mcmanus for routine care Discharge home this afternoon Total Time Total Time Spent Total Time Spent (In Minutes): 35 minutes Discharge Plan Discharge Items Patient Disposition: Home - Self-Care Reason For Visit: NEURO SYMPTOMS Discharge Diagnosis: Neurologic symptoms(myoclonic jerks)-resolved, end-stage renal disease on hemodialysis, right leg pain Condition on Discharge: Fair Activity: Resume your previous activity Non-emergency contact: Primary Care Provider Call non-emergency contact if: you have any medication questions and your symptoms worsen Follow-up/Referrals: Ac Mcmanus, [Primary Care Provider] - (Your doctor's office will call you with an appointment within 7 days) Diet: Dialysis Renal Addtl Attending Provider Instructions: Please take precautions to avoid falls Your Mirtazapine and Cyclobenzaprine have been discontinued Try to use your oxycodone wisely as advised Please keep appointments with your outpatient dialysis Pending Studies at Discharge: No Stand-Alone Forms: My [facility] [employer], Smoking Cessation Medications and DC Order Prescriptions: New oxycodone-acetaminophen [Percocet] 5-325 mg Tablet 1 tab PO Q8H PRN (Reason: pain) Qty: 10 RF: 0 Continued cholecalciferol (vitamin D3) [Vitamin D3] 50 mcg (2,000 unit) Capsule 2,000 unit PO QAM RF: 0 amlodipine [Norvasc] 10 mg tablet 10 mg PO QAM RF: 0 hydralazine 25 mg Tablet 50 mg PO QPM RF: 0 Tradjenta 5 mg Tablet 5 mg PO QAM RF: 0 potassium 99 mg Tablet 99 mg PO QAM RF: 0 nitroglycerin 0.4 mg Tablet, Sublingual 0.4 mg sublingual UD PRN (Reason: Angina) RF: 0 sertraline [Zoloft] 100 mg Tablet 150 mg PO QAM RF: 0 clopidogrel [Plavix] 75 mg Tablet 75 mg PO QAM RF: 0 aspirin 81 mg Tablet,Delayed Release (Dr/Ec) 81 mg PO QAM RF: 0 levothyroxine 25 mcg Tablet 25 mcg PO QAM RF: 0 montelukast [Singulair] 10 mg Tablet 10 mg PO HS RF: 0 fluticasone propionate [Flonase Allergy Relief] 50 mcg/actuation [place],Suspension 1 spray INTRANASAL DAILY PRN (Reason: Nasal Congestion) RF: 0 azelastine 0.15 % (205.5 mcg) [place],Non-Aerosol 1 spray INTRANASAL QAM RF: 0 albuterol sulfate 90 mcg/actuation Aerosol Powdr Breath Activated 2 puff INHALATION QID PRN (Reason: Shortness Of Breath) RF: 0 ondansetron 4 mg Tablet,Disintegrating 4 mg PO Q6H PRN (Reason: Nausea) RF: 0 sevelamer carbonate [Renvela] 800 mg Tablet 1,600 mg PO TIDM RF: 0 Belsomra 20 mg Tablet 20 mg PO HS RF: 0 furosemide 40 mg tablet 40 mg PO DAILY RF: 0 levocetirizine 5 mg Tablet 5 mg PO PM RF: 0 Discontinued cyclobenzaprine 5 mg Tablet 5 mg PO TID PRN (Reason: Pain) RF: 0 mirtazapine 15 mg tablet 15 mg PO HS RF: 0 Discharge Orders: Discharge Order (Routine); Ordered 01/09/21 Ordered By: Nolvia Arechiga/Other Patient Handouts: A1C, Managing Type 2 Diabetes, Preventing Falls Moving Safely ... Admission Data Admit Date/Time: 01/07/21 15:14 Attending Provider: Nolvia Salter Admit Provider: Nolvia Salter Primary Care Provider: Ac Mcmanus Other Providers: Tory Evans ; Nolvia Salter ; Alisha Keys Other Interventions: Discharge Summary Assessment (RN) Last Done: 01/09/21 13:49
[2021-01-10] MEDS ORDERED: INFLUENZA VACCINE HIGH DOSE PF 65+ 0.7 ML SYR IM ONE (12:00)
[2021-01-10 13:41] LABS: Codeine Urine NEGATIVE ng/mL (<50); Hydrocodone Urine NEGATIVE ng/mL (<50); Hydromor Urine NEGATIVE ng/mL (<50); Morphine Urine NEGATIVE ng/mL (<50); Norhydrocodone Conf Ur NEGATIVE ng/mL (<50); Noroxycodone Urine 1570 ng/mL (<50); Oxycodone Urine 636 ng/mL (<50); Oxymorph Urine 2010 ng/mL (<50)
== END 2021-01-09 14:32 | disposition home or self-care (01) | DRG 91 ==
LOC: ED 11:42 → 2W 15:14

== ENCOUNTER 2021-01-25 05:57 | Inpatient (IN) ==
--- NOTE | 2021-01-25 06:51 | Emergency Department Note ---
Impression & Plan Altered mental status, Obtundation, Chronic renal failure ED Provider Note Name: MIKE NGUYEN Age: 70 Sex: F Arrives Via: Ambulance Informant: EMS ED Provider: Juancho Hong MD Chief Complaint: AMS Impression: As Per Impressions Above Medical Decision Makin yr old female with extensive PMH arrives for evaluation of obtundation initially brought in by EMS for agitation/seizure like activity, receiving IM Ativan en route, now obtunded. No hypoxia though low respiratory rate thus VBG sent which was consistent iwth hypoventilation though not to point requiring BIPAP/Intubation and she maintains airway without difficulty. Work up with some renal insufficiency. No clear evidence infection no evidence ACS/Dissection and given symptoms I suspect this is not a stroke, but would not be TPA candidate as it is. Hospitalist consulted for further work-up and evaluation. Prior Medical Record and Triage/Nursing Notes reviewed by Me Additional history obtained from chart Differentials:Infection, dehydration, metabolic abnormality, hypo/hyperglycemia, electrolyte disturbance, anemia, hypoxia, cardiac sources, intracerebral event, toxicologic, neurologic, as well as other pathologies. Vital Signs: reviewed and remarkable for no significant abnormalities Interventions: Saline lock, nss bolu Labs:Reviewed and remarkable for no significant abnormalities Imaging:See Below EKG:Per My Interpretation: Indication Weakness: NSR 61 bpm, qtc 424. No Ectopy. No Ischemia. Compared to EKG 01/07/21, no significant changes. Cardiac/Tele Monitoring: Cardiac Monitoring: An Order was placed for continuous cardiac monitoring. The monitor shows a rate of 60 with a normal sinus rhythm. Consults:Nabil Hospitalist Plan: Disposition:Hospitalization. Condition: Good History of Present Illness:70 yr old female arrives for evaluation of AMS. P atient with reported tremors/shakes at home after possible syncope event in bathroom. She reportedly woke up as soon as son came in to bathroom. She urinated on herself and by EMS arrival she was quite tremulous. She was given 1mg IM Ativan to keep her from twitching and IV established. No known head injury. She did have a fall a few weeks ago and was hospitalized. She has no further information due to being obtunded. ROS: Unable to obtain due to obtundation Past Medical History:See Below Past Surgical History:See Below Family History:See Below Social History:See Below Home Medications:See Below Allergies:See Below Vitals:Blood Pressure: 180/69, Pulse 51, RR 18, T 36.6C, O2 98% on RA Physical Exam: GENERAL: Patient is chronically unwell appearing and in no acute distress. Obtunded EYES: No scleral icterus, unremarkable pupils. ENT: Mucous membranes dry, no nasal congestion. NECK: No masses appreciated, nomeningismus, trachea is midline. RESPIRATORY: No dyspnea. Clear to auscultation and equal bilaterally. No wheeze, no rhonchi. CARDIOVASCULAR: Manan.No murmurs, rubs, gallops appreciated. GASTROINTESTINAL: Abdomen soft, non-tender, no peritonitis.Bowel sounds positive.No masses appreciated. BACK: No midline tenderness, no CVA tenderness EXTREMITIES: no cyanosis, no edema. Unable to assess movement NEUROLOGIC: Obtunded. Unable to assess other than pulls away from stimuli. Periodic mumbling SKIN: No rash, no jaundice, no diaphoresis. GSC 9 ED Course: Times/Reassessments: Obtunded, keeping airway clear, and stable Juancho Hong MD Past Med/Surg History Medical History Anemia Anxiety Asthma Uses albuterol daily. Atrial fibrillation FOLLOWED BY DR. CARROLL AV fistula Depression Diabetes mellitus, type 2 oral med End stage renal disease receiving hemodiaylsis Sunday//Saturdays in [place]. Follows Dr. Ramirez ([place]). Endometriosis stage 4 GERD (gastroesophageal reflux disease) Hyperlipidemia Hypertension no medications currently - experiencing hypotension Hypothyroidism Kidney failure STAGE 4 NO DIALYSIS Migraine Myocardial Infarction 2007 Osteoarthritis Stroke X 2 2014 Surgical History History of abdominal surgery UMBILICAL MESH REMOVED (NECROTIC) History of adenoidectomy History of appendectomy History of martha hole surgery 2014 AFTER CVA TO "REMOVED FLUID" History of cardiac cath 2007 AT [facility] History of cataract surgery RT/LEFT History of section X 3 History of cholecystectomy History of colonoscopy History of coronary artery bypass graft 2008 3 [facility] [place] History of esophagogastroduodenoscopy (EGD) History of herniorrhaphy X 3 REPAIRS History of surgery LEFT FOOT/ANKLE FX REPAIR S/P FALL (HARDWARE) History of tonsillectomy History of tooth extraction History of total abdominal hysterectomy and bilateral salpingo-oophorectomy History of total knee replacement LEFT Hx of hand surgery LEFT HAND SURGERY "TOOK BONES OUT" S/P arteriovenous (AV) fistula creation Left arm S/P panniculectomy Family History Brother Family history of diabetes mellitus Coronary heart disease Mother Family history of diabetes mellitus Other No family history of adverse response to anesthesia Social History Smoking Status: Unknown if ever smoked Tobacco Type: Cigarettes Cigarettes Per Day: 1; Second Hand Exposure: Yes; Hx Alcohol Use: No Hx Substance Use: Yes Last Used Substance: Hours (ago) Substance Use Type Other:: unable to respond Preferred Language: Tunisian Communication Ability: Unable Visual Impairment: No Limitations [employer] Required: No Beliefs That Will Affect Care: None Current Living Situation: Alone Other Information That Helps Us Care for You: No Assistive Devices: None Allergies Allergies Allergy/AdvReac Type Severity Reaction Status Date / Time bee venom protein (honey bee) Allergy Intermediate MOUTH Verified 01/25/21 07:40 SWELLING prednisone Allergy Intermediate SWELLING Verified 01/25/21 07:40 OG HANDS, ITCHING, RASH tomato Allergy Intermediate Hives Verified 01/25/21 07:40 Penicillins Allergy Mild RASH Verified 01/25/21 07:40 rosuvastatin Allergy Mild SEVERE H/A Verified 01/25/21 07:40 trazodone AdvReac Severe Confusion Verified 01/25/21 07:40 Fitzqex-ZUA-[id number] Reductase AdvReac Mild EFFECTED Verified 01/25/21 07:40 Inhibitor LIVER [Ojponoo-Cik-Zjv Reductase STUDIES Inhibitor] Home Meds Home Medications Medication Instructions Recorded Confirmed albuterol sulfate 90 mcg/actuation 2 puff INHALATION QID PRN 02/18/18 01/25/21 breath activated powder inhaler (ProAir RespiClick) aspirin 81 mg tablet,delayed 81 mg PO QAM 02/18/18 01/25/21 release (Aspirin Low Dose) azelastine 205.5 mcg (0.15 %) 1 spray INTRANASAL QAM 02/18/18 01/25/21 nasal spray clopidogrel 75 mg tablet (Plavix) 75 mg PO QAM 02/18/18 01/25/21 fluticasone propionate 50 1 spray INTRANASAL DAILY PRN 02/18/18 01/25/21 mcg/actuation nasal spray,suspension (Flonase Allergy Relief) levothyroxine 25 mcg tablet 25 mcg PO QAM 02/18/18 01/25/21 montelukast 10 mg tablet 10 mg PO HS 02/18/18 01/25/21 (Singulair) sertraline 100 mg tablet (Zoloft) 150 mg PO QAM 02/18/18 01/25/21 sevelamer carbonate 800 mg tablet 1,600 mg PO TIDM 03/26/19 01/25/21 (Renvela) suvorexant 20 mg tablet (Belsomra) 20 mg PO HS 03/26/19 01/25/21 amlodipine 10 mg tablet (Norvasc) 10 mg PO QAM 03/23/20 01/25/21 hydralazine 25 mg tablet 50 mg PO QPM 03/23/20 01/25/21 linagliptin 5 mg tablet (Tradjenta) 5 mg PO QAM 03/23/20 01/25/21 nitroglycerin 0.4 mg sublingual 0.4 mg SUBLINGUAL UD PRN 03/23/20 01/25/21 tablet (Nitrostat) furosemide 40 mg tablet 40 mg PO QAM 01/07/21 01/25/21 levocetirizine 5 mg tablet (Xyzal) 5 mg PO PM 01/07/21 01/25/21 ammonium lactate 12 % topical cream 1 applic TOPICAL DAILY PRN 01/25/21 01/25/21 buspirone 5 mg tablet 5 mg PO BID 01/25/21 01/25/21 cholecalciferol (vitamin D3) 25 25 mcg PO DAILY 01/25/21 01/25/21 mcg (1,000 unit) capsule (Vitamin D3) cyclobenzaprine 5 mg tablet 5 mg PO UD 01/25/21 01/25/21 epinephrine 0.3 mg/0.3 mL 0.3 mg IM Q4H PRN 01/25/21 01/25/21 injection, auto-injector fluticasone furoate 100 1 inh INHALATION BID 01/25/21 01/25/21 mcg-vilanterol 25 mcg/dose inhalation powder (Breo Ellipta) ipratropium 0.5 mg-albuterol 3 mg 3 ml INHALATION Q4H PRN 01/25/21 01/25/21 (2.5 mg base)/3 mL nebulization soln ondansetron HCl 8 mg tablet 8 mg PO TID PRN 01/25/21 01/25/21 potassium gluconate 600 mg (99 mg) 600 mg PO DAILY 01/25/21 01/25/21 tablet Previous Rx's Medication Instructions Recorded oxycodone-acetaminophen 5 mg-325 1 tab PO Q8H PRN #10 tab 01/09/21 mg tablet (Percocet) Results & Data (ED) Vital Signs Vital Signs - 24 hr 01/25/21 06:09 Temperature 36.6 C Temperature Source Axillary Pulse Rate 67 Pulse Rhythm Regular Respiratory Rate 18 Respiratory Effort / Characteristics Non-Labored Spontaneous Respiratory Depth Normal Respiratory Pattern Regular Blood Pressure 180/69 H Blood Pressure Mean 106 Blood Pressure Position Lying Pulse Oximetry 98 Oxygen Delivery Method Room Air Sepsis Recent Fever Within 48 Hours No Sepsis New/Unexplained Change in Mental Status Yes Sepsis Action Taken by Nursing No Action Required Laboratory Data Result diagrams: 01/26/21 05:28 01/26/21 05:28 Lab Results 01/25/21 01/25/21 01/25/21 Range/Units 06:21 06:21 06:21 WBC 7.88 (4.8-10.8) K/uL RBC 3.81 L (4.2-5.4) M/uL Hgb 11.1 L (12.0-16.0) g/dL Hct 35.1 L (37-47) % MCV 92.1 (80-100) fL MCH 29.1 (25-34) pg MCHC 31.6 L (32-36) g/dL RDW Std Deviation 51.5 H (36.4-46.3) fL RDW Coeff of Odilon 15.2 H (11.5-14.5) % Plt Count 215 (130-400) K/uL MPV 10.1 (7.4-10.4) fL Immature Gran % (Auto) 0.4 % Neut % (Auto) 78.8 % Lymph % (Auto) 15.2 % Ingham % (Auto) 4.9 % Eos % (Auto) 0.3 % Baso % (Auto) 0.4 % Neut # (Auto) 6.21 (1.4-6.5) K/uL Lymph # (Auto) 1.20 (1.2-3.4) K/uL [place] # (Auto) 0.39 (0.11-0.59) K/uL Eos # (Auto) 0.02 (0-0.5) K/uL Baso # (Auto) 0.03 (0-0.2) K/uL Immature Gran # (Auto) 0.03 H (0.00-0.02) K/uL ABG pH (7.35-7.45) ABG pCO2 (35-46) mmHg ABG pO2 (80-95) mmHg ABG HCO3 (19-24) mmol/L ABG O2 Saturation (90-95) % ABG Base Excess (-9-1.8) mEq/L Rocco Test (Pos) Barometric Pressure mm/Hg Oxygen Given Sodium 138 (136-145) mmol/L Potassium 4.6 (3.5-5.1) mmol/L Chloride 104 (98-107) mmol/L Carbon Dioxide 27 (21-32) mmol/L Anion Gap 7.0 (3-11) BUN 68 H (7-18) mg/dl Creatinine 5.81 H* (0.6-1.2) mg/dl Est Cr Clr Drug Dosing Not Reportable Est GFR ( Amer) 7.8 ml/min Est GFR (Non-Af Amer) 6.7 ml/min BUN/Creatinine Ratio 11.7 (10-20) Glucose 170 H (70-99) mg/dl Calcium 8.7 (8.5-10.1) mg/dl Magnesium 2.8 H (1.8-2.4) mg/dl Total Bilirubin 0.4 (0.2-1) mg/dl AST 20 (15-37) U/L ALT 16 (12-78) U/L Alkaline Phosphatase 157 H (45-117) U/L Ammonia (11-32) umol/L Total Creatine Kinase 274 H (26-192) U/L Troponin I < 0.015 (0-0.045) ng/ml Total Protein 7.7 (6.4-8.2) gm/dl Albumin 3.3 L (3.4-5.0) gm/dl Globulin 4.4 H (2.5-4.0) gm/dl Albumin/Globulin Ratio 0.7 L (0.9-2) COVID-19 Eval Order SARS-CoV-2 (PCR) (Negative) 01/25/21 01/25/21 01/25/21 Range/Units 07:11 07:11 08:13 WBC (4.8-10.8) K/uL RBC (4.2-5.4) M/uL Hgb (12.0-16.0) g/dL Hct (37-47) % MCV (80-100) fL MCH (25-34) pg MCHC (32-36) g/dL RDW Std Deviation (36.4-46.3) fL RDW Coeff of Odilon (11.5-14.5) % Plt Count (130-400) K/uL MPV (7.4-10.4) fL Immature Gran % (Auto) % Neut % (Auto) % Lymph % (Auto) % Ingham % (Auto) % Eos % (Auto) % Baso % (Auto) % Neut # (Auto) (1.4-6.5) K/uL Lymph # (Auto) (1.2-3.4) K/uL Ingham # (Auto) (0.11-0.59) K/uL Eos # (Auto) (0-0.5) K/uL Baso # (Auto) (0-0.2) K/uL Immature Gran # (Auto) (0.00-0.02) K/uL ABG pH 7.40 (7.35-7.45) ABG pCO2 45 (35-46) mmHg ABG pO2 76 L (80-95) mmHg ABG HCO3 27 H (19-24) mmol/L ABG O2 Saturation 95.4 H (90-95) % ABG Base Excess 1.8 (-9-1.8) mEq/L Rocco Test Pos (Pos) Barometric Pressure 734.9 mm/Hg Oxygen Given RA Sodium (136-145) mmol/L Potassium (3.5-5.1) mmol/L Chloride (98-107) mmol/L Carbon Dioxide (21-32) mmol/L Anion Gap (3-11) BUN (7-18) mg/dl Creatinine (0.6-1.2) mg/dl Est Cr Clr Drug Dosing Est GFR ( Amer) ml/min Est GFR (Non-Af Amer) ml/min BUN/Creatinine Ratio (10-20) Glucose (70-99) mg/dl Calcium (8.5-10.1) mg/dl Magnesium (1.8-2.4) mg/dl Total Bilirubin (0.2-1) mg/dl AST (15-37) U/L ALT (12-78) U/L Alkaline Phosphatase (45-117) U/L Ammonia 14.9 (11-32) umol/L Total Creatine Kinase (26-192) U/L Troponin I (0-0.045) ng/ml Total Protein (6.4-8.2) gm/dl Albumin (3.4-5.0) gm/dl Globulin (2.5-4.0) gm/dl Albumin/Globulin Ratio (0.9-2) COVID-19 Eval Order Covid19 at [facility] SARS-CoV-2 (PCR) (Negative) 01/25/21 Range/Units 08:13 WBC (4.8-10.8) K/uL RBC (4.2-5.4) M/uL Hgb (12.0-16.0) g/dL Hct (37-47) % MCV (80-100) fL MCH (25-34) pg MCHC (32-36) g/dL RDW Std Deviation (36.4-46.3) fL RDW Coeff of Odilon (11.5-14.5) % Plt Count (130-400) K/uL MPV (7.4-10.4) fL Immature Gran % (Auto) % Neut % (Auto) % Lymph % (Auto) % Ingham % (Auto) % Eos % (Auto) % Baso % (Auto) % Neut # (Auto) (1.4-6.5) K/uL Lymph # (Auto) (1.2-3.4) K/uL Ingham # (Auto) (0.11-0.59) K/uL Eos # (Auto) (0-0.5) K/uL Baso # (Auto) (0-0.2) K/uL Immature Gran # (Auto) (0.00-0.02) K/uL ABG pH (7.35-7.45) ABG pCO2 (35-46) mmHg ABG pO2 (80-95) mmHg ABG HCO3 (19-24) mmol/L ABG O2 Saturation (90-95) % ABG Base Excess (-9-1.8) mEq/L Rocco Test (Pos) Barometric Pressure mm/Hg Oxygen Given Sodium (136-145) mmol/L Potassium (3.5-5.1) mmol/L Chloride (98-107) mmol/L Carbon Dioxide (21-32) mmol/L Anion Gap (3-11) BUN (7-18) mg/dl Creatinine (0.6-1.2) mg/dl Est Cr Clr Drug Dosing Est GFR ( Amer) ml/min Est GFR (Non-Af Amer) ml/min BUN/Creatinine Ratio (10-20) Glucose (70-99) mg/dl Calcium (8.5-10.1) mg/dl Magnesium (1.8-2.4) mg/dl Total Bilirubin (0.2-1) mg/dl AST (15-37) U/L ALT (12-78) U/L Alkaline Phosphatase (45-117) U/L Ammonia (11-32) umol/L Total Creatine Kinase (26-192) U/L Troponin I (0-0.045) ng/ml Total Protein (6.4-8.2) gm/dl Albumin (3.4-5.0) gm/dl Globulin (2.5-4.0) gm/dl Albumin/Globulin Ratio (0.9-2) COVID-19 Eval Order SARS-CoV-2 (PCR) NEGATIVE (Negative) Administered Medications Heparin Sodium (Porcine) (Heparin Sod 5,000 Unit/0.5 Ml Vial) 5,000 units SQ Q8 [facility] Stop: 02/24/21 13:59 Last Admin: 01/26/21 13:05 Dose: 5,000 units Documented by: [id number] Admin: 01/26/21 05:36 Dose: 5,000 units Documented by: [id number] Admin: 01/25/21 22:12 Dose: 5,000 units Documented by: [id number] Admin: 01/25/21 13:41 Dose: 5,000 units Documented by: [id number] Ceftriaxone Sodium 1,000 mg/ (Dextrose) 50 mls @ 100 mls/hr IV Q24H [facility]; Protocol Stop: 01/30/21 11:59 Last Infusion: 01/26/21 13:49 Dose: 0 mls/hr Documented by: [id number] Admin: 01/26/21 13:04 Dose: 100 mls/hr Documented by: [id number] Infusion: 01/25/21 14:23 Dose: 0 mls/hr Documented by: [id number] Admin: 01/25/21 13:40 Dose: 100 mls/hr Documented by: [id number] Insulin Aspart (Insulin Aspart 100 Units/Ml 3 Ml Pen) 0 units SC ACHS [facility] Stop: 02/24/21 11:29 Last Admin: 01/26/21 12:57 Dose: Not Given Documented by: [id number] Admin: 01/26/21 08:06 Dose: 1 units Documented by: [id number] Cosigned by: [id number] Admin: 01/25/21 21:32 Dose: Not Given Documented by: [id number] Cosigned by: [id number] Admin: 01/25/21 17:25 Dose: Not Given Documented by: [id number] Admin: 01/25/21 12:25 Dose: Not Given Documented by: [id number] Insulin Glargine (Insulin Glargine Solostar 100 Units/Ml 3 Ml Pen) 0 - 8 units SC BID [facility] Stop: 02/24/21 10:36 Last Admin: 01/26/21 08:06 Dose: 4 units Documented by: [id number] Cosigned by: [id number] Admin: 01/25/21 22:15 Dose: Not Given Documented by: [id number] Admin: 01/25/21 12:24 Dose: Not Given Documented by: [id number] Discontinued Medications Epoetin Maximino (Epoetin Maximino 4,000 Unit/Ml Vial) 4,000 units IV 1000 [facility] Stop: 01/25/21 16:00 Last Admin: 01/25/21 16:03 Dose: Not Given Documented by: [id number] Lorazepam (Ativan) 1 mg in 2 mls @ 2 mls/min IV NOW STA Stop: 01/25/21 09:21 Last Admin: 01/25/21 09:20 Dose: 2 mls/min Documented by: [id number] Lorazepam (Ativan) 1 mg in 2 mls @ 2 mls/min IV NOW STA Stop: 01/25/21 09:28 Last Admin: 01/25/21 09:28 Dose: 2 mls/min Documented by: [id number] Levetiracetam 1,000 mg/ Sodium (Chloride) 110 mls @ 440 mls/hr IV NOW STA Stop: 01/25/21 09:46 Last Infusion: 01/25/21 10:20 Dose: 0 mls/hr Documented by: [id number] Admin: 01/25/21 09:59 Dose: 440 mls/hr Documented by: [id number] Lorazepam (Ativan) 1 mg in 2 mls @ 2 mls/min IV NOW STA Stop: 01/25/21 09:35 Last Admin: 01/25/21 10:45 Dose: Not Given Documented by: [id number] Lorazepam (Ativan) 1 mg in 2 mls @ 2 mls/min IV NOW STA Stop: 01/25/21 09:53 Last Admin: 01/25/21 10:45 Dose: Not Given Documented by: [id number] Lorazepam (Lorazepam 2 Mg/4 Ml Vial) Confirm Administered Dose 2 mg .ROUTE .STK- MED ONE Stop: 01/25/21 09:22 Last Admin: 01/25/21 09:45 Dose: 2 mg Documented by: [id number] Naloxone HCl (Naloxone Hcl 0.4 Mg/1 Ml Vial/Carp) 0.4 mg IV NOW STA Stop: 01/25/21 09:09 Last Admin: 01/25/21 09:10 Dose: 0.4 mg Documented by: [id number] Naloxone HCl (Naloxone Hcl 0.4 Mg/1 Ml Vial/Carp) Confirm Administered Dose 0.4 mg .ROUTE .STK-MED ONE Stop: 01/25/21 09:12 Last Admin: 01/25/21 10:45 Dose: Not Given Documented by: [id number] Discharge Plan Visit Data Chief Complaint: Unresponsive Stated Complaint: SEIZURE ED Provider: Juancho Hong Discharge Problem: Altered mental status, Obtundation, Chronic renal failure Patient Disposition: Admitted As Inpatient Condition: Good Discharge Instructions Interventions: ED Discharge Assessment Last Done: 01/25/21 10:38 Discharge Problem: Altered mental status Qualifiers: Altered mental status type: somnolence Qualified Code(s): R40.0 - Somnolence Chronic renal failure Qualifiers: Chronic kidney disease stage: unspecified stage Qualified Code(s): N18.9 - Chr onic kidney disease, unspecified
[2021-01-25 06:57] LABS: Basophils # (auto) 0.03 K/uL (0-0.2); Basophils % (auto) 0.4 %; Eosinophils # (auto) 0.02 K/uL (0-0.5); Eosinophils % (auto) 0.3 %; Hematocrit (blood only) 35.1 % (37-47); Hemoglobin 11.1 g/dL (12.0-16.0); Immature Granulocytes # (auto) 0.03 K/uL (0.00-0.02); Immature Granulocytes % (auto) 0.4 %; Lymphocytes % (auto) 15.2 %; Mean Corpuscular Hemoglobin 29.1 pg (25-34); Mean Corpuscular Hgb Conc 31.6 g/dL (32-36); Mean Corpuscular Volume 92.1 fL (80-100); Mean Platelet Volume 10.1 fL (7.4-10.4); Monocytes # (auto) 0.39 K/uL (0.11-0.59); Monocytes % (auto) 4.9 %; Neutrophils # (auto) 6.21 K/uL (1.4-6.5); Neutrophils % (auto) 78.8 %; Platelet Count 215 K/uL (130-400); RDW Coefficient of Variation 15.2 % (11.5-14.5); RDW Standard Deviation 51.5 fL (36.4-46.3); Red Blood Count 3.81 M/uL (4.2-5.4); White Blood Count 7.88 K/uL (4.8-10.8)
[2021-01-25 07:11] LABS: Alanine Aminotransferase 16 U/L (12-78); Albumin Globulin Ratio 0.7 (0.9-2); Albumin Level 3.3 gm/dl (3.4-5.0); Alkaline Phosphatase 157 U/L (45-117); Aspartate Aminotransferase 20 U/L (15-37); BUN Creatinine Ratio 11.7 (10-20); Bilirubin,Total 0.4 mg/dl (0.2-1); Blood Urea Nitrogen 68 mg/dl (7-18); Calcium 8.7 mg/dl (8.5-10.1); Carbon Dioxide 27 mmol/L (21-32); Chloride 104 mmol/L (98-107); Est GFR (African American) 7.8 ml/min; Est GFR (Non-African American) 6.7 ml/min; Globulin 4.4 gm/dl (2.5-4.0); Glucose 170 mg/dl (70-99); Potassium 4.6 mmol/L (3.5-5.1); Sodium 138 mmol/L (136-145); Total Protein 7.7 gm/dl (6.4-8.2)
[2021-01-25 07:32] LABS: Allen Test Pos (Pos); Base Excess ABG 1.8 mEq/L (-9-1.8); HCO3 ABG 27 mmol/L (19-24); Oxygen Saturation ABG 95.4 % (90-95); PCO2 ABG 45 mmHg (35-46); PO2 ABG 76 mmHg (80-95)
[2021-01-25 07:44] LABS: Creatine Kinase 274 U/L (26-192); Magnesium 2.8 mg/dl (1.8-2.4); Troponin I < 0.015 ng/ml (0-0.045)
--- NOTE | 2021-01-25 08:09 | CT Scan Report ---
CT head/brain wo con CLINICAL HISTORY: syncope possible seizure Technique: Contiguous axial CT images of the head were acquired from the base of the skull to the [facility] without intravenous contrast administration. Images were viewed in brain, subdural and bone [facility] Automated dose lowering techniques and/or adjustment according to patient size were utilized for this exam. Comparison: Comparison is made to CT head 01/07/2021 Findings: Areas of decreased attenuation are present in the periventricular and subcortical white matter bilate rally consistent with small vessel ischemic disease. Generalized cerebral atrophy with commensurate e nlargement of the ventricles, sulci, and cisterns is also present. There is no acute intracranial hem orrhage or evidence of acute territorial infarction. No shift of the midline structures, mass effect, or extra-axial abnormalities are shown. Atherosclerotic calcifications are present in the intracran ial segments of the internal carotid arteries. Imaged portions of the paranasal sinuses and mastoid air cells are clear. The orbits appear normal. There are no acute fractures of the calvaria or scalp swelling. Impression: No acute intracranial hemorrhage, evidence of acute territorial infarction, or other acute intracrani al disease process. ACT 112: Negative or not required by law. Electronically signed by: Nirav Wall M.D. 01/25/2021 8:08 AM
[2021-01-25] MEDS ORDERED: NALOXONE HCL 0.4 MG/1 ML VIAL/CARP IV STA (09:08)
[2021-01-25] MEDS ORDERED: NALOXONE HCL 0.4 MG/1 ML VIAL/CARP ONE (09:11)
[2021-01-25] MEDS ORDERED: LORazepam 1 MG/2 ML VIAL IV STA ×4 (09:20→09:52)
[2021-01-25] MEDS ORDERED: LORazepam 2 MG/4 ML VIAL ONE (09:21)
[2021-01-25] MEDS ORDERED: SODIUM CHLORIDE 0.9% 1000ML 1,000 ML IV PRN (09:32)
[2021-01-25] MEDS ORDERED: levETIRAcetam 1,000 MG in 0.9 % SODIUM CHLORIDE 100 ML IV STA (09:32)
[2021-01-25 09:41] LABS: Appearance Urine Cloudy (Clear); Bacteria Urine Automated 4+ (Negative); Bilirubin Urine Negative (Negative); Blood Urine 1+ (Negative); Cast Urine Automated 0 /lpf (0-5); Color Urine Yellow; Glucose Urine UA Negative (Negative); Ketones Urine Negative (Negative); Leukocyte Esterase Urine 2+ (Negative); Nitrite Urine Negative (Negative); Protein Urine 2+ (Negative); RBC Urine Automated 0-4 /hpf (0-4); Specific Gravity Urine 1.015 (1.000-1.030); Urobilinogen Urine Negative (Negative); WBC Urine Automated >30 /hpf (0-5)
[2021-01-25] MEDS ORDERED: EPOETIN ALFA 4,000 UNIT/ML VIAL IV SCH (10:00)
[2021-01-25 10:05] LABS: Amphetamines+Metham, Urine Neg (Neg); Barbiturates, Urine Neg (Neg); Benzodiazepine, Urine Neg (Neg); Cocaine, Urine Neg (Neg); MDMA (Ecstacy), Urine Neg (Neg); Methadone, Urine Neg (Neg); Opiate, Urine Pos (Neg); Phencyclidine, Urine Neg (Neg)
--- NOTE | 2021-01-25 10:16 | History & Physical Report ---
Date of Service January 25, 2021 Assessment & Plan (1) Acute metabolic encephalopathy: (2) Seizure-like activity: (3) End stage renal disease: (4) DM2 (diabetes mellitus, type 2): (5) CAD (coronary artery disease): (6) Diastolic CHF: (7) Hypertension: (8) Opiate use: Plan: This is a 70-year-old female who has a significant past medical history of CAD status post CABG, ESRD T//, T2DM, HTN, HLD, history of marijuana use, hypothyroidism, history of A. fib who presents to ED 2/2 to AMS and unresponsiveness. Limited hx given obtundation, son provided minimal history, pt lives alone. Upon my evaluation pt had agonal breathing and bradycardia. There was concern of possible polypharmacy or drug use given known oxycodone prescription and marijuana use; therefore IV narcan was administered. Pt aroused immediately and developed seizure like activity vs myoclonic jerking of all extremities, pt would even occasionally mumble words that were not comprehensible. She received IV ativan 1mg x 4 w/o resolution of symptoms. It became more clear that pt may not be experiencing seizure like activity and more so myoclonic jerking in setting of opiates, polypharm and ESRD. Case was discussed with Dr. Quinonez ICU and Dr. Colón of Neurology. She did received 1000mg keppra load. Acute metabolic encephalopathy Seizure like activity vs Myoclonus CT head: negative admit to PCU seizure precautions, neuro checks consult neurology received 1g keppra load and total of 4mg of IV ativan in ED stat EEG ordered - based on results will consider urgent MRI of brain r/o cva NPO hold all oral medications aspiration precautions lactic acid normal, LDH minimally elevated at 250, prolactin minimally elevated at 22.34 no known seizure hx in past electrolytes and glucose stable ? drug withdrawal induced with narcan vs myoclonus in setting of ESRD and polypharmacy, CVA, intracranial event, infectious encephalopathy recent hospitalization 01/07- 2/2 to concern for CVA and myoclonus - felt 2/2 to consistent Remeron use/possible opiates - Remeron was discontinued, unknown if still taking ESRD HD t// given AMS pt to undergo HD tomorrow Nephrology Dr. Gonzales on board Abnormal UA empirically tx with IV rocephin urine culture pending obtain blood culture prior to antibiotic r/o infectious encephalopathy, although no fever or elevated wbc so less likely T2DM last a1C 6.4 01/08/21 hold tradjenta lantus/novolog per protocol HTN in setting of NPO will use IV hydralazine 5mg q4h prn SBP > 180 hold oral hydralazine, amlodipine, furosemide CAD hx of CABG on asa, plavix, hydralazine as outpt hold given AMS ekg w/o t wave change, trop wnl Known Opiate use/possible opiate abuse +Marijuana on drug screen pt will need screen for possible drug abuse when AMS resolves avoid further narcs at this point Hypothyroidism hold levothyroxine today if still npo tomorrow will need IV levothyroxine 12.5mcg Depression/Grief pt recently lost her on zoloft consider psych consult Insomnia pt taking belsomra given current situation may benefit from discontinuation Dispo:PCU PCP: Sue Mcmanus FULL CODE Pt was seen and examined in collaboration with Dr. Rangel, please see addendum Admission and Anticipated Discharge Date Admission Date: January 25, 2021 History of Present Illness Chief Complaint: AMS x 1 day. Primary Care Provider: Ac Mcmanus, DO This is a 70-year-old female who has a significant past medical history of CAD status post CABG, ESRD T//, T2DM, HTN, HLD, history of marijuana use, hypothyroidism, history of A. fib who presents to ED 2/2 to AMS and unresponsiveness. She was found at home by her son on their spare bathroom floor. She was awake, minimally alert and having seizure like activity of her R arm per her son. EMS was summoned and found pt, "flailing," so 1mg of ativan was given which made her obtunded. When she came to ER she was unresponsive and hx was unable to be obtained. Of significance she was recently admitted 01/07-01/10 2 to slurred speech and myoclonic jerks. She underwent CVA work up which was negative. She was seen and eval by neuro who felt sx may be related to consistent use of Remeron as well as concomitant use of Belsomra, oxycodone and marijuana. She admitted last admission to taking her husbands oxycodone and smoking marijuana. When speaking to son he is unaware what medications she has been taking, but does known she was getting marijuana from her friends. In ED she remained hemodynamically stable. Initial work up revealed CBC generally unremarkable except for h/h 11.1 & 35.1, ABG ph 7.4, Pco2 45, bun/cr stable at 68 and 5.81 in setting of ESRD, mag 2.8, CK 274. Last known well is not known. Allergies Allergy/AdvReac Type Severity Reaction Status Date / Time bee venom protein (honey bee) Allergy Intermediate MOUTH Verified 01/25/21 07:40 SWELLING prednisone Allergy Intermediate SWELLING Verified 01/25/21 07:40 OG HANDS, ITCHING, RASH tomato Allergy Intermediate Hives Verified 01/25/21 07:40 Penicillins Allergy Mild RASH Verified 01/25/21 07:40 rosuvastatin Allergy Mild SEVERE H/A Verified 01/25/21 07:40 trazodone AdvReac Severe Confusion Verified 01/25/21 07:40 Khavkke-BDE-RfV Reductase AdvReac Mild EFFECTED Verified 01/25/21 07:40 Inhibitor LIVER [Wdaltsx-Cur-Ddn Reductase STUDIES Inhibitor] Home Medications Medication Instructions Recorded Confirmed Type albuterol sulfate 90 mcg/actuation 2 puff INHALATION QID PRN 02/18/18 01/25/21 History breath activated powder inhaler (ProAir RespiClick) aspirin 81 mg tablet,delayed 81 mg PO QAM 02/18/18 01/25/21 History release (Aspirin Low Dose) azelastine 205.5 mcg (0.15 %) 1 spray INTRANASAL QAM 02/18/18 01/25/21 History nasal spray clopidogrel 75 mg tablet (Plavix) 75 mg PO QAM 02/18/18 01/25/21 History fluticasone propionate 50 1 spray INTRANASAL DAILY PRN 02/18/18 01/25/21 History mcg/actuation nasal spray,suspension (Flonase Allergy Relief) levothyroxine 25 mcg tablet 25 mcg PO QAM 02/18/18 01/25/21 History montelukast 10 mg tablet 10 mg PO HS 02/18/18 01/25/21 History (Singulair) sertraline 100 mg tablet (Zoloft) 150 mg PO QAM 02/18/18 01/25/21 History sevelamer carbonate 800 mg tablet 1,600 mg PO TIDM 03/26/19 01/25/21 History (Renvela) suvorexant 20 mg tablet (Belsomra) 20 mg PO HS 03/26/19 01/25/21 History amlodipine 10 mg tablet (Norvasc) 10 mg PO QAM 03/23/20 01/25/21 History hydralazine 25 mg tablet 50 mg PO QPM 03/23/20 01/25/21 History linagliptin 5 mg tablet (Tradjenta) 5 mg PO QAM 03/23/20 01/25/21 History nitroglycerin 0.4 mg sublingual 0.4 mg SUBLINGUAL UD PRN 03/23/20 01/25/21 History tablet (Nitrostat) furosemide 40 mg tablet 40 mg PO QAM 01/07/21 01/25/21 History levocetirizine 5 mg tablet (Xyzal) 5 mg PO PM 01/07/21 01/25/21 History oxycodone-acetaminophen 5 mg-325 1 tab PO Q8H PRN #10 tab 01/09/21 01/25/21 Rx mg tablet (Percocet) ammonium lactate 12 % topical cream 1 applic TOPICAL DAILY PRN 01/25/21 01/25/21 History buspirone 5 mg tablet 5 mg PO BID 01/25/21 01/25/21 History cholecalciferol (vitamin D3) 25 25 mcg PO DAILY 01/25/21 01/25/21 History mcg (1,000 unit) capsule (Vitamin D3) cyclobenzaprine 5 mg tablet 5 mg PO UD 01/25/21 01/25/21 History epinephrine 0.3 mg/0.3 mL 0.3 mg IM Q4H PRN 01/25/21 01/25/21 History injection, auto-injector fluticasone furoate 100 1 inh INHALATION BID 01/25/21 01/25/21 History mcg-vilanterol 25 mcg/dose inhalation powder (Breo Ellipta) ipratropium 0.5 mg-albuterol 3 mg 3 ml INHALATION Q4H PRN 01/25/21 01/25/21 History (2.5 mg base)/3 mL nebulization soln ondansetron HCl 8 mg tablet 8 mg PO TID PRN 01/25/21 01/25/21 History potassium gluconate 600 mg (99 mg) 600 mg PO DAILY 01/25/21 01/25/21 History tablet Past Med/Surg History Medical History Anemia Anxiety Asthma Uses albuterol daily. Atrial fibrillation FOLLOWED BY DR. CARROLL AV fistula Depression Diabetes mellitus, type 2 oral med End stage renal disease receiving hemodiaylsis Sunday//Saturdays in [place]. Follows Dr. Ramirez ([place], [place]). Endometriosis stage 4 GERD (gastroesophageal reflux disease) Hyperlipidemia Hypertension no medications currently - experiencing hypotension Hypothyroidism Kidney failure STAGE 4 NO DIALYSIS Migraine Myocardial Infarction 2007 Osteoarthritis Stroke X 2 2013 Surgical History History of abdominal surgery UMBILICAL MESH REMOVED (NECROTIC) History of adenoidectomy History of appendectomy History of martha hole surgery 2013 AFTER CVA TO "REMOVED FLUID" History of cardiac cath 2007 AT [facility] History of cataract surgery RT/LEFT History of section X 3 History of cholecystectomy History of colonoscopy History of coronary artery bypass graft 2007 3 V[facility]SELS AT [facility] History of esophagogastroduodenoscopy (EGD) History of herniorrhaphy X 3 REPAIRS History of surgery LEFT FOOT/ANKLE FX REPAIR S/P FALL (HARDWARE) History of tonsillectomy History of tooth extraction History of total abdominal hysterectomy and bilateral salpingo-oophorectomy History of total knee replacement LEFT Hx of hand surgery LEFT HAND SURGERY "TOOK BONES OUT" S/P arteriovenous (AV) fistula creation Left arm S/P panniculectomy Family History Brother Family history of diabetes mellitus Coronary heart disease Mother Family history of diabetes mellitus Other No family history of adverse response to anesthesia Social History Smoking Status: Unknown if ever smoked Tobacco Type: Cigarettes Cigarettes Per Day: 1; Second Hand Exposure: Yes; Hx Alcohol Use: No Hx Substance Use: Yes Last Used Substance: Hours (ago) Substance Use Type Other:: unable to respond Preferred Language: Vincentian Communication Ability: unresponsi Visual Impairment: No Limitations Lead Recoverer Required: No Beliefs That Will Affect Care: None Current Living Situation: Alone Other Information That Helps Us Care for You: No Assistive Devices: Denture - Upper, Denture - Lower, Glasses and Walker Review of Systems Review of Systems: All systems reviewed & are unremarkable except as noted in HPI & below Physical Exam Physical Exam: Constitutional: Petite, elderly F, initially obtunded with agonal breathing, vitals as above, s/p IV narcan administration pt became alert but not oriented and had generalized myotonic jerking/seizure like activity, she also would intermittent talk, but would not make sense Head: Normocephalic, Atraumatic Eyes: PERRL, conjunctivae normal, anicteric sclerae ENMT: external ear and nose normal, oropharynx normal Neck: trachea midline, no thyromegaly normal visual inspection Respiratory: initially agonal breathing with periods of apnea, which resolved s/p narcan administration, lungs clear to auscultation, no wheeze, rales, rhonchi. Normal insp/exp effort, no accessory muscle use Cardiovascular: initially bradycardic, s/p narcan was tachycardiac, RRR, no murmur, no edema Vessels: no JVD or carotid bruit Chest: normal inspection of chest Abdomen: normal bowel sounds, soft, nontender, no hepatosplenomegaly Musculoskeletal: no cyanosis or clubbing, extremities AROM x 4, myoclonic tonic clonic jerking, strength unable to be assessed Skin: no rashes, warm and dry normal turgor Neurologic: PERRL, EOMI, accommodation nl, no face palsy, no dysarthria CN's II-XI intact bilaterally and moves all extremities Psychiatric: alerted, not oriented, euthymic affect Lymphatic: no cervical or axillary lymphadenopathy : yellow urine via purewic Results & Data Results & Data ([facility]) Vital Signs (Past 12 Hours) Vital Signs Temp Pulse Resp BP Pulse Ox 01/25/21 08:15 55 L 12 187/61 H 100 01/25/21 07:45 53 L 15 99 01/25/21 07:30 52 L 135/57 L 96 01/25/21 07:15 49 L 93 01/25/21 07:00 51 L 93 01/25/21 06:09 36.6 C 67 18 180/69 H [address] 01/25/21 06:42 CT head/brain wo con CLINICAL HISTORY: syncope possible seizure Technique: Contiguous axial CT images of the head were acquired from the base of the skull to the vertex without intravenous contrast administration. Images were viewed in brain, subdural and bone windows. Automated dose lowering techniques and/or adjustment according to patient size were utilized for this exam. Comparison: Comparison is made to CT head 01/07/2021 Findings: Areas of decreased attenuation are present in the periventricular and subcortical white matter bilaterally consistent with small vessel ischemic disease. Generalized cerebral atrophy with commensurate enlargement of the ventricles, sulci, and cisterns is also present. There is no acute intracranial hemorrhage or evidence of acute territorial infarction. No shift of the midline structures, mass effect, or extra-axial abnormalities are shown. Atherosclerotic calcifications are present in the intracranial segments of the internal carotid arteries. Imaged portions of the paranasal sinuses and mastoid air cells are clear. The orbits appear normal. There are no acute fractures of the calvaria or scalp swelling. Impression: No acute intracranial hemorrhage, evidence of acute territorial infarction, or other acute intracranial disease process. ACT 112: Negative or not required by law. Electronically signed by: Nirav Wall M.D. 01/25/2021 8:08 AM Medications Administered Medication List Discontinued Medications Lorazepam (Ativan) 1 mg in 2 mls @ 2 mls/min IV NOW STA Stop: 01/25/21 09:21 Last Admin: 01/25/21 09:20 Dose: 2 mls/min Documented by: [id number] Lorazepam (Ativan) 1 mg in 2 mls @ 2 mls/min IV NOW STA Stop: 01/25/21 09:28 Last Admin: 01/25/21 09:28 Dose: 2 mls/min Documented by: [id number] Levetiracetam 1,000 mg/ Sodium (Chloride) 110 mls @ 440 mls/hr IV NOW STA Stop: 01/25/21 09:46 Last Admin: 01/25/21 09:59 Dose: 440 mls/hr Documented by: [id number] Naloxone HCl (Naloxone Hcl 0.4 Mg/1 Ml Vial/Carp) 0.4 mg IV NOW STA Stop: 01/25/21 09:09 Last Admin: 01/25/21 09:10 Dose: 0.4 mg Documented by: [id number] ECG Rate (beats per minute): 61 Rhythm: normal sinus Code Status & VTE Plan Code Status FULL CODE VTE Prophylaxis Plan VTE Prophylaxis will be ordered: Yes (1) Hypertension Hypertension type: essential hypertension Qualified Code(s): I10 - Essential (primary) hypertension
[2021-01-25] MEDS ORDERED: GLUCOSE 10 TABS/TUBE PO PRN (10:37)
[2021-01-25] MEDS ORDERED: CARBOHYDRATES FOR HYPOGLYCEMIA PO PRN (10:37)
[2021-01-25] MEDS ORDERED: POLYETHYLENE (MIRALAX) 17 GM PACK PO PRN (10:37)
[2021-01-25] MEDS ORDERED: DEXTROSE 50% 50 ML SYRINGE IV PRN (10:37)
[2021-01-25] MEDS ORDERED: GLUCAGON FOR INJ 1 MG VIAL SQ PRN (10:37)
[2021-01-25] MEDS ORDERED: GLUCOSE 40% GEL 15 GM TUBE PO PRN (10:37)
[2021-01-25] MEDS ORDERED: hydrALAZINE HCL 20 MG/ML VIAL IV PRN (11:22)
--- NOTE | 2021-01-25 11:22 | Nephrology Consultation ---
Date of Consultation January 25, 2021 Assessment & Plan (1) End stage renal disease: ESRD--Given Sig MS changes and Possible ?? seizure like movement will do her dialysis tomorrow. No fluid overload and no lytes issues History of Present Illness Reason for Consultation: ESRD Attending Physician: Reji Rangel MD History of Present Illness This is a 70-year-old female who has a significant past medical history of CAD status post CABG, ESRD T//, T2DM, HTN, HLD, history of marijuana use, hypothyroidism, history of A. fib who presents to ED 2/2 to AMS and unresponsiveness. She has ESRD on dialysis TTS. has AVF. She was found at home by her son on their spare bathroom floor. She was awake, minimally alert and having seizure like activity of her R arm per her son. EMS was Called and found pt, "flailing," so 1mg of ativan was given which made her obtunded. When she came to ER she was unresponsive . Of significance she was recently admitted 01/07-01/10 05/11 to slurred speech and myoclonic jerks. She underwent CVA work up which was negative. She was Review of Systems Review of Systems: patient obtunded and cannot obtain Any History Physical Exam Physical Exam: Constitutional: Petite, elderly F, initially obtunded with agonal breathing and doing abnormal jerking movement. vitals as above, s/p IV narcan administration pt became alert but not oriented and had generalized myotonic jerking/seizure like activity on EEG machine now Head: Normocephalic, Atraumatic Neck: trachea midline, no thyromegaly normal visual inspection Respiratory: initially agonal breathing with periods of apnea, which resolved s/p narcan administration, lungs clear to auscultation, no wheeze, rales, rhonchi. Normal insp/exp effort, no accessory muscle use Cardiovascular: initially bradycardic, s/p narcan was tachycardiac, RRR, no murmur, no edema Vessels: no JVD or carotid bruit Chest: normal inspection of chest Abdomen: normal bowel sounds, soft, nontender, no hepatosplenomegaly Musculoskeletal: no cyanosis or clubbing, extremities AROM x 4, myoclonic tonic clonic jerking, strength unable to be assessed Skin: no rashes, warm and dry normal turgor Neurologic: PERRL, EOMI, accommodation nl, no face palsy, no dysarthria CN's II-XI intact bilaterally and moves all extremities Psychiatric: alerted, not oriented, euthymic affect Lymphatic: no cervical or axillary lymphadenopathy : incontinent Results & Data Results & Data ([facility]) Vital Signs (Past 12 Hours) Vital Signs Temp Pulse Resp BP Pulse Ox 01/25/21 08:15 55 L 12 187/61 H 100 01/25/21 07:45 53 L 15 99 01/25/21 07:30 52 L 135/57 L 96 01/25/21 07:15 49 L 93 01/25/21 07:00 51 L 93 01/25/21 06:09 36.6 C 67 18 180/69 H 98 Allergies Allergy/AdvReac Type Severity Reaction Status Date / Time bee venom protein (honey bee) Allergy Intermediate MOUTH Verified 01/25/21 07:40 SWELLING prednisone Allergy Intermediate SWELLING Verified 01/25/21 07:40 OG HANDS, ITCHING, RASH tomato Allergy Intermediate Hives Verified 01/25/21 07:40 Penicillins Allergy Mild RASH Verified 01/25/21 07:40 rosuvastatin Allergy Mild SEVERE H/A Verified 01/25/21 07:40 trazodone AdvReac Severe Confusion Verified 01/25/21 07:40 Cicwwlj-JJI-HzK Reductase AdvReac Mild EFFECTED Verified 01/25/21 07:40 Inhibitor LIVER [Crtrivf-Pbf-Mmm Reductase STUDIES Inhibitor] Home Medications Medication Instructions Recorded Confirmed Type albuterol sulfate 90 mcg/actuation 2 puff INHALATION QID PRN 02/18/18 01/25/21 History breath activated powder inhaler (ProAir RespiClick) aspirin 81 mg tablet,delayed 81 mg PO QAM 02/18/18 01/25/21 History release (Aspirin Low Dose) azelastine 205.5 mcg (0.15 %) 1 spray INTRANASAL QAM 02/18/18 01/25/21 History nasal spray clopidogrel 75 mg tablet (Plavix) 75 mg PO QAM 02/18/18 01/25/21 History fluticasone propionate 50 1 spray INTRANASAL DAILY PRN 02/18/18 01/25/21 History mcg/actuation nasal spray,suspension (Flonase Allergy Relief) levothyroxine 25 mcg tablet 25 mcg PO QAM 02/18/18 01/25/21 History montelukast 10 mg tablet 10 mg PO HS 02/18/18 01/25/21 History (Singulair) sertraline 100 mg tablet (Zoloft) 150 mg PO QAM 02/18/18 01/25/21 History sevelamer carbonate 800 mg tablet 1,600 mg PO TIDM 03/26/19 01/25/21 History (Renvela) suvorexant 20 mg tablet (Belsomra) 20 mg PO HS 03/26/19 01/25/21 History amlodipine 10 mg tablet (Norvasc) 10 mg PO QAM 03/23/20 01/25/21 History hydralazine 25 mg tablet 50 mg PO QPM 03/23/20 01/25/21 History linagliptin 5 mg tablet (Tradjenta) 5 mg PO QAM 03/23/20 01/25/21 History nitroglycerin 0.4 mg sublingual 0.4 mg SUBLINGUAL UD PRN 03/23/20 01/25/21 History tablet (Nitrostat) furosemide 40 mg tablet 40 mg PO QAM 01/07/21 01/25/21 History levocetirizine 5 mg tablet (Xyzal) 5 mg PO PM 01/07/21 01/25/21 History oxycodone-acetaminophen 5 mg-325 1 tab PO Q8H PRN #10 tab 01/09/21 01/25/21 Rx mg tablet (Percocet) ammonium lactate 12 % topical cream 1 applic TOPICAL DAILY PRN 01/25/21 01/25/21 History buspirone 5 mg tablet 5 mg PO BID 01/25/21 01/25/21 History cholecalciferol (vitamin D3) 25 25 mcg PO DAILY 01/25/21 01/25/21 History mcg (1,000 unit) capsule (Vitamin D3) cyclobenzaprine 5 mg tablet 5 mg PO UD 01/25/21 01/25/21 History epinephrine 0.3 mg/0.3 mL 0.3 mg IM Q4H PRN 01/25/21 01/25/21 History injection, auto-injector fluticasone furoate 100 1 inh INHALATION BID 01/25/21 01/25/21 History mcg-vilanterol 25 mcg/dose inhalation powder (Breo Ellipta) ipratropium 0.5 mg-albuterol 3 mg 3 ml INHALATION Q4H PRN 01/25/21 01/25/21 History (2.5 mg base)/3 mL nebulization soln ondansetron HCl 8 mg tablet 8 mg PO TID PRN 01/25/21 01/25/21 History potassium gluconate 600 mg (99 mg) 600 mg PO DAILY 01/25/21 01/25/21 History tablet Patient History Medical History Anemia Anxiety Asthma Uses albuterol daily. Atrial fibrillation FOLLOWED BY DR. CARROLL AV fistula Depression Diabetes mellitus, type 2 oral med End stage renal disease receiving hemodiaylsis Sunday//Saturdays in [place]. Follows Dr. Ramirez ([place], [place]). Endometriosis stage 4 GERD (gastroesophageal reflux disease) Hyperlipidemia Hypertension no medications currently - experiencing hypotension Hypothyroidism Kidney failure STAGE 4 NO DIALYSIS Migraine Myocardial Infarction 2007 Osteoarthritis Stroke X 2 2013 Surgical History History of abdominal surgery UMBILICAL MESH REMOVED (NECROTIC) History of adenoidectomy History of appendectomy History of martha hole surgery 2013 AFTER CVA TO "REMOVED FLUID" History of cardiac cath 2007 AT [facility] History of cataract surgery RT/LEFT History of section X 3 History of cholecystectomy History of colonoscopy History of coronary artery bypass graft 2007 3 VESSELS AT [place] History of esophagogastroduodenoscopy (EGD) History of herniorrhaphy X 3 REPAIRS History of surgery LEFT FOOT/ANKLE FX REPAIR S/P FALL (HARDWARE) History of tonsillectomy History of tooth extraction History of total abdominal hysterectomy and bilateral salpingo-oophorectomy History of total knee replacement LEFT Hx of hand surgery LEFT HAND SURGERY "TOOK BONES OUT" S/P arteriovenous (AV) fistula creation Left arm S/P panniculectomy Family History Brother Family history of diabetes mellitus Coronary heart disease Mother Family history of diabetes mellitus Other No family history of adverse response to anesthesia Social History Smoking Status: Unknown if ever smoked Tobacco Type: Cigarettes Cigarettes Per Day: 1; Second Hand Exposure: Yes; Hx Alcohol Use: No Hx Substance Use: Yes Last Used Substance: Days (ago) Substance Use Type Other:: unable to respond Preferred Language: Slovak Communication Ability: Effective Visual Impairment: No Limitations Consumer Loan Officer Required: No Beliefs That Will Affect Care: None Current Living Situation: Alone Feels Safe at Home: Yes Assistive Devices: Walker Results & Data ([facility]) Vital Signs (Past 12 Hours) Vital Signs Temp Pulse Resp BP Pulse Ox 01/25/21 08:15 55 L 12 187/61 H 100 01/25/21 07:45 53 L 15 99 01/25/21 07:30 52 L 135/57 L 96 01/25/21 07:15 49 L 93 01/25/21 07:00 51 L 93 01/25/21 06:09 36.6 C 67 18 180/69 H 98
--- NOTE | 2021-01-25 11:31 | Electroencephalogram ---
EEG Procedure Note Date of Service January 25, 2021 Start / End Times Start Time: 10:46 End Time: 11:06 Referring Physician Shirlene Salazar PA-C History A 70-year-old woman with history of CKD, polypharmacy, and tremor/myoclonic jerks presenting emergency department with altered mentation and seizure-like activity. EEG performed for evaluation epileptiform activity. Home Medication List Medication Instructions Recorded Confirmed Type albuterol sulfate 90 mcg/actuation 2 puff INHALATION QID PRN 02/18/18 01/25/21 History breath activated powder inhaler (ProAir RespiClick) aspirin 81 mg tablet,delayed 81 mg PO QAM 02/18/18 01/25/21 History release (Aspirin Low Dose) azelastine 205.5 mcg (0.15 %) 1 spray INTRANASAL QAM 02/18/18 01/25/21 History nasal spray clopidogrel 75 mg tablet (Plavix) 75 mg PO QAM 02/18/18 01/25/21 History fluticasone propionate 50 1 spray INTRANASAL DAILY PRN 02/18/18 01/25/21 History mcg/actuation nasal spray,suspension (Flonase Allergy Relief) levothyroxine 25 mcg tablet 25 mcg PO QAM 02/18/18 01/25/21 History montelukast 10 mg tablet 10 mg PO HS 02/18/18 01/25/21 History (Singulair) sertraline 100 mg tablet (Zoloft) 150 mg PO QAM 02/18/18 01/25/21 History sevelamer carbonate 800 mg tablet 1,600 mg PO TIDM 03/26/19 01/25/21 History (Renvela) suvorexant 20 mg tablet (Belsomra) 20 mg PO HS 03/26/19 01/25/21 History amlodipine 10 mg tablet (Norvasc) 10 mg PO QAM 03/23/20 01/25/21 History hydralazine 25 mg tablet 50 mg PO QPM 03/23/20 01/25/21 History linagliptin 5 mg tablet (Tradjenta) 5 mg PO QAM 03/23/20 01/25/21 History nitroglycerin 0.4 mg sublingual 0.4 mg SUBLINGUAL UD PRN 03/23/20 01/25/21 History tablet (Nitrostat) furosemide 40 mg tablet 40 mg PO QAM 01/07/21 01/25/21 History levocetirizine 5 mg tablet (Xyzal) 5 mg PO PM 01/07/21 01/25/21 History oxycodone-acetaminophen 5 mg-325 1 tab PO Q8H PRN #10 tab 01/09/21 01/25/21 Rx mg tablet (Percocet) ammonium lactate 12 % topical cream 1 applic TOPICAL DAILY PRN 01/25/21 01/25/21 History buspirone 5 mg tablet 5 mg PO BID 01/25/21 01/25/21 History cholecalciferol (vitamin D3) 25 25 mcg PO DAILY 01/25/21 01/25/21 History mcg (1,000 unit) capsule (Vitamin D3) cyclobenzaprine 5 mg tablet 5 mg PO UD 01/25/21 01/25/21 History epinephrine 0.3 mg/0.3 mL 0.3 mg IM Q4H PRN 01/25/21 01/25/21 History injection, auto-injector fluticasone furoate 100 1 inh INHALATION BID 01/25/21 01/25/21 History mcg-vilanterol 25 mcg/dose inhalation powder (Breo Ellipta) ipratropium 0.5 mg-albuterol 3 mg 3 ml INHALATION Q4H PRN 01/25/21 01/25/21 History (2.5 mg base)/3 mL nebulization soln ondansetron HCl 8 mg tablet 8 mg PO TID PRN 01/25/21 01/25/21 History potassium gluconate 600 mg (99 mg) 600 mg PO DAILY 01/25/21 01/25/21 History tablet Inpatient Medication List Discontinued Medications Lorazepam (Ativan) 1 mg in 2 mls @ 2 mls/min IV NOW STA Stop: 01/25/21 09:21 Last Admin: 01/25/21 09:20 Dose: 2 mls/min Documented by: [id number] Lorazepam (Ativan) 1 mg in 2 mls @ 2 mls/min IV NOW STA Stop: 01/25/21 09:28 Last Admin: 01/25/21 09:28 Dose: 2 mls/min Documented by: [id number] Levetiracetam 1,000 mg/ Sodium (Chloride) 110 mls @ 440 mls/hr IV NOW STA Stop: 01/25/21 09:46 Last Infusion: 01/25/21 10:20 Dose: 0 mls/hr Documented by: [id number] Admin: 01/25/21 09:59 Dose: 440 mls/hr Documented by: [id number] Lorazepam (Ativan) 1 mg in 2 mls @ 2 mls/min IV NOW STA Stop: 01/25/21 09:35 Last Admin: 01/25/21 10:45 Dose: Not Given Documented by: [id number] Lorazepam (Ativan) 1 mg in 2 mls @ 2 mls/min IV NOW STA Stop: 01/25/21 09:53 Last Admin: 01/25/21 10:45 Dose: Not Given Documented by: [id number] Lorazepam (Lorazepam 2 Mg/4 Ml Vial) Confirm Administered Dose 2 mg .ROUTE .STK- MED ONE Stop: 01/25/21 09:22 Last Admin: 01/25/21 09:45 Dose: 2 mg Documented by: [id number] Naloxone HCl (Naloxone Hcl 0.4 Mg/1 Ml Vial/Carp) 0.4 mg IV NOW STA Stop: 01/25/21 09:09 Last Admin: 01/25/21 09:10 Dose: 0.4 mg Documented by: [id number] Naloxone HCl (Naloxone Hcl 0.4 Mg/1 Ml Vial/Carp) Confirm Administered Dose 0.4 mg .ROUTE .STK-MED ONE Stop: 01/25/21 09:12 Last Admin: 01/25/21 10:45 Dose: Not Given Documented by: [id number] Description This is a 21 electrode EEG with a single channel dedicated to limited EKG. The electrodes were placed in accordance with the International 10-20 system. REPORT: At the onset of the EEG the patient is in an altered mental state. The background is symmetric and disorganized. There is a loss of the Normal anterior to posterior gradient. the posterior dominant rhythm is not well seen instead the background predominantly consisted of generalized 3-4 hertz delta activity with some intermittent superimposed fast stir activity which is likely artifact. Study has marked movement/ electrode artifact as the patient is continuously moving Throughout the study. no stage 2 sleep transients are noted. No epileptiform discharges are seen. Interpretation This is an abnormal routine EEG in a patient with altered mentation due to generalized background slowing suggestive of a nonspecific encephalopathy. No epileptiform activity is recorded.
[2021-01-25] MEDS: INSULIN GLARGINE SOLOSTAR 100 UNITS/ML 3 ML PEN SC SCH ×2 (12:24→22:15)
[2021-01-25] MEDS: INSULIN ASPART 100 UNITS/ML 3 ML PEN SC SCH ×3 (12:25→21:32)
[2021-01-25] MEDS: cefTRIAXone SODIUM 1,000 MG in DEXTROSE 5% 50 ML IV SCH (13:40)
[2021-01-25] MEDS: HEPARIN SOD 5,000 UNIT/0.5 ML VIAL SQ SCH ×2 (13:41→22:12)
[2021-01-25] MEDS ORDERED: Influenza Vaccine-High Dose (Fluzone-HD) PF 65+ 0.7 ML SYR IM ONE (15:15)
--- NOTE | 2021-01-25 15:39 | Magnetic Resonance Report ---
Brain MRI WITHOUT CONTRAST HISTORY: Altered mental status. Assess for stroke. TECHNIQUE: Multiplanar multisequence MRI of the brain was performed without the use of contrast. COMPARISON STUDY: Head CT 01/25/2021. Brain MRI 01/07/2021. FINDINGS: Mild motion artifact. No areas of restricted diffusion to suggest acute infarction. The mid line structures appear intact. The ventricles and sulci demonstrate mild age-related involutional trish nges. Mild mucosal thickening within the ethmoid air cells. The mastoid air cells are clear. The maurizio r vascular flow-voids at the skull base appear maintained. There is no mass, hematoma, or midline [place] ft. Mild periventricular white matter T2 hyperintensity is nonspecific but favors mild microvascular ischemic change. This remains unchanged. IMPRESSION: Mild motion artifact. No definite acute intracranial abnormality. ACT 112: Negative or not required by law. Electronically signed by: Jose Steinberg M.D. 01/25/2021 3:38 PM
--- NOTE | 2021-01-25 18:54 | Consultation Report ---
NEUROLOGY CONSULTATION NOTE DATE OF CONSULTATION: 01/25/2021 REQUESTING PHYSICIAN: Dr. Reji Rangel. CHIEF COMPLAINT: Altered mental status/seizure-like activity. HISTORY OF PRESENT ILLNESS: A 70-year-old woman with multiple medical comorbidities including coronary artery disease, status post CABG, end-stage renal disease, on dialysis, type 2 diabetes, hypertension, hyperlipidemia, and polypharmacy as well as known atrial fibrillation, who presented to the Emergency Department this morning for altered mentation/unresponsiveness. History was therefore limited due to altered mental status. The patient was noted to be bradycardic with agonal breathing and concern for possible polypharmacy or drug overdose. The patient does have a prescription for oxycodone as well as uses marijuana. IV Narcan was administered. The patient did arouse after receiving Narcan, although developed seizure-like activity versus myoclonic jerking of all extremities. The patient has been seen in the past for intermittent hyperactive movement disorders, thought that she had myoclonic jerks related to polypharmacy in the past. She received IV Ativan 1 mg x4 without resolution of symptoms; it became more clear that the patient may not be experiencing seizure-like activity, so myoclonic jerking in the setting of opiate/polypharmacy. The patient received an EEG as well in the ER and was given Keppra. Since the patient has been largely obtunded and resting throughout the day, neurology was consulted upon admission for further assessment. ALLERGIES: BEE VENOM, PREDNISONE, TOMATO, PENICILLIN, CRESTOR, TRAZODONE, STATINS. HOME MEDICATIONS: Albuterol, aspirin, Plavix, Flonase, Synthroid, Singulair, sertraline, Renvela, Norvasc, hydralazine, nitroglycerin as needed, Lasix, Percocet, buspirone, cyclobenzaprine, Zofran. PAST MEDICAL HISTORY: End-stage renal disease, type 2 diabetes, hypertension, CAD, status post CABG, chronic opiate use, polysubstance use, hypothyroidism, depression, insomnia. PAST SURGICAL HISTORY: Abdominal surgery, adenoidectomy, appendectomy, martha hole surgery, cardiac cath, cataract surgery, section x3, cholecystectomy, colonoscopy, CABG, EGD, hernia repair x3, surgery of the left ankle, tonsillectomy, tooth extraction, total abdominal hysterectomy, knee replacement, left hand surgery, AV fistula creation, panniculectomy. FAMILY HISTORY: Brother has diabetes and coronary artery disease. Mother has diabetes. SOCIAL HISTORY: The patient does smoke cigarettes as well as marijuana. No known alcohol use. She lives alone. REVIEW OF SYSTEMS: Unable to be obtained due to altered mentation. PHYSICAL EXAMINATION: VITAL SIGNS: Blood pressure 126/60, pulse is 60, respiratory rate 14, temperature is 36.6 degrees Celsius, oxygen saturation 95% on room air. The patient appears in no acute distress. The patient is sleeping at bedside. Nonarousable to sternal rub. Occasionally moans, although does not open her eyes. Does not respond to verbal stimuli. Not moving any extremities. The patient is heavily sedated due to recent Ativan as well as Keppra. Otherwise, physical examination is limited. DIAGNOSTIC TESTING AND LABORATORY VALUES: WBC 7.88, hemoglobin 11.1, platelet count is 215. Sodium is 138, potassium 4.6, chloride 104, carbon dioxide 27, BUN is 68, creatinine 5.81, glucose is 170. Magnesium is 2.8, total creatine kinase is 274. Prolactin is 22.34. Urinalysis was cloudy, 2+ protein, 1+ blood, greater than 30 WBCs, 5-10 epithelial cells, 4+ bacteria. MRI of the brain showed mild motion artifact. No acute intracranial abnormality. No areas of restricted diffusion. Routine EEG showed generalized slowing. No evidence of epileptiform activity. ASSESSMENT AND PLAN: A 70-year-old woman with multiple medical comorbidities including end-stage renal disease as well as coronary artery disease, status post coronary artery bypass grafting as well as hypertension and type 2 diabetes, admitted with presumed metabolic/toxic encephalopathy, likely in the setting of polysubstance abuse/polypharmacy. Not uncommonly seen to have myoclonic jerks in the setting of polypharmacy as well as end-stage renal disease. Routine EEG showed generalized slowing without epileptiform activity. MRI of the brain, although motion artifact, shows no evidence of acute ischemic stroke. Agree with conservative measures. At this time, I would not recommend starting an antiepileptic medication. If this is indeed polysubstance related, it should improve with time. We will follow up urine culture as well as defer to primary team for metabolic treatment. The patient is seen by nephrology and planning for dialysis tomorrow. Of note, the patient had no myoclonic jerks noted on examination this afternoon, although the patient is heavily sedated. Neurology will continue to follow. Job ID: [id number] [facility]ENTER[facility]
[2021-01-26] MEDS: HEPARIN SOD 5,000 UNIT/0.5 ML VIAL SQ SCH ×3 (05:36→21:33)
[2021-01-26 06:02] LABS: Hematocrit (blood only) 34.5 % (37-47); Hemoglobin 10.8 g/dL (12.0-16.0); Mean Corpuscular Hgb Conc 31.3 g/dL (32-36); Mean Corpuscular Volume 92.7 fL (80-100); Mean Platelet Volume 10.3 fL (7.4-10.4); Platelet Count 196 K/uL (130-400); RDW Coefficient of Variation 15.3 % (11.5-14.5); RDW Standard Deviation 51.7 fL (36.4-46.3); Red Blood Count 3.72 M/uL (4.2-5.4)
[2021-01-26 06:57] LABS: BUN Creatinine Ratio 13.1 (10-20); Calcium 8.2 mg/dl (8.5-10.1); Creatinine Clr Calc Pharmacy 8.4 ml/min; Est GFR (African American) 8.9 ml/min; Est GFR (Non-African American) 7.7 ml/min; Magnesium 2.7 mg/dl (1.8-2.4); Potassium 4.3 mmol/L (3.5-5.1)
[2021-01-26] MEDS: INSULIN GLARGINE SOLOSTAR 100 UNITS/ML 3 ML PEN SC SCH ×2 (08:06→19:11)
[2021-01-26] MEDS: INSULIN ASPART 100 UNITS/ML 3 ML PEN SC SCH ×4 (08:06→19:10)
--- NOTE | 2021-01-26 12:10 | Electrocardiogram Report ---
Test Reason : Blood Pressure : / mmHG Vent. Rate : 061 BPM Atrial Rate : 061 BPM P-R Int : 170 ms QRS Dur : 068 ms QT Int : 422 ms P-R-T Axes : 063 035 051 degrees QTc Int : 424 ms Poor data quality, interpretation may be adversely affected Normal sinus rhythm Normal ECG When compared with ECG of 07-JAN-2021 12:47, No significant change Confirmed by Romel Sheets ([id number]) on 01/26/2021 12:09:44 PM Referred By: REFERRED SELF Confirmed By:Romel Sheets
[2021-01-26] MEDS: cefTRIAXone SODIUM 1,000 MG in DEXTROSE 5% 50 ML IV SCH (13:04)
--- NOTE | 2021-01-26 14:44 | Dialysis Progress Note ---
Date of Service January 26, 2021 Assessment & Plan Admission and Anticipated Discharge Date Admission Date: January 25, 2021 Subjective Seen in dialysis unit. She is obtunded same as yesterday Morning we Saw her in ED. has been seen by neurology. No jerking movement. Vital signs are good though. labs reviewed. Physical Exam: Constitutional: obtunded Respiratory: lungs clear to auscultation, no wheeze, rales, rhonchi. Normal insp/exp effort, no accessory muscle use Cardiovascular: , RRR, no murmur, no edema Vessels: no JVD or carotid bruit Abdomen: normal bowel sounds, soft, nontender, no hepatosplenomegaly Musculoskeletal: no cyanosis or clubbing, extremities AROM x 4, myoclonic tonic clonic jerking, strength unable to be assessed Lymphatic: no cervical or axillary lymphadenopathy : incontinent A/p--70/F admitted with encephalopathy likely Polysubstance abuse ( opioids, marijuana, metabolic encephalopathy). ESRD on HD --TTS. ESRD---given the etiology of encephalopathy likely Polysubstance abuse ( opioids, marijuana, metabolic encephalopathy) she needs dialysis now for potential improvement. Cannot postpone Dialysis forever. even though Obtunded no different than yesterday. Vital signs are good. Will take 1 kilo off. Results & Data ([facility]) Vital Signs (Past 12 Hours) Vital Signs Temp Pulse Pulse Resp BP BP Pulse Ox 01/26/21 11:45 36.8 C 76 16 158/62 H 95 01/26/21 08:00 36.9 C 60 60 18 160/59 H 96 01/26/21 03:11 36.7 C 64 12 176/72 H 98
--- NOTE | 2021-01-26 17:45 | Hospitalist Progress Note ---
Date of Service January 26, 2021 Assessment & Plan (1) Acute metabolic encephalopathy: (2) Seizure-like activity: (3) End stage renal disease: (4) DM2 (diabetes mellitus, type 2): (5) CAD (coronary artery disease): (6) Diastolic CHF: (7) Hypertension: (8) Opiate use: Plan: Patient is a 70 yr female who has a significant past medical history of CAD status post CABG, ESRD T//, T2DM, HTN, HLD, history of marijuana use, hypothyroidism, history of A. fib who presents to ED 2/2 to AMS and unresponsiveness. Limited hx given obtundation, son provided minimal history, pt lives alone. Upon my evaluation pt had agonal breathing and bradycardia. There was concern of possible polypharmacy or drug use given known oxycodone prescription and marijuana use; therefore IV narcan was administered.Pt aroused immediately and developed seizure like activity vs myoclonic jerking of all extremities, pt would even occasionally mumble words that were not comprehensible. Acute metabolic encephalopathy Seizure like activity vs Myoclonus Vs polypharmacy/Abuse ; UTI; in setting of ESRD Recent hospitalization 01/07- 2/2 to concern for CVA and myoclonus - felt 2/2 to consistent Remeron use/possible opiates - Remeron was discontinued, unknown if still taking CT head: negative MRI Brain:Mild motion artifact. No definite acute intracranial abnormality. seizure precautions, neuro checks --EEG:This is an abnormal routine EEG in a patient with altered mentation due to generalized background slowing suggestive of a nonspecific encephalopathy. No epileptiform activity is recorded. Toxicology Screen: Positive for opiates, marijuana Appreciate Neurology Input Hold all sedative medications aspiration precautions No antiepileptics recommended per Neuro We will need to reassess after dialysis No myoclonic jerks today ESRD HD t// Plan for hemodialysis today Appreciate nephrology input UTI Urine culture growing gram-negative bacilli Blood cultures no growth to date Continue empiric Rocephin DM II last a1C 6.4 01/08/21 hold tradjenta lantus/novolog per protocol HTN in setting of NPO will use IV hydralazine 5mg q4h prn SBP > 180 hold oral hydralazine, amlodipine, furosemide CAD hx of CABG on asa, plavix, hydralazine as outpt Resume home meds as able Known Opiate use/possible opiate abuse +Marijuana on drug screen pt will need screen for possible drug abuse when AMS resolves Avoid any sedative meds Hypothyroidism Resume levothyroxine as able Depression/Grief Recently lost her on zoloft consider psych consult if needed Insomnia Is on belsomra Currently held Plan to DC upon discharge given risk for polypharmacy DVT Px: Heparin SQ Code Status FULL CODE Admission and Anticipated Discharge Date Admission Date: January 25, 2021 Subjective 20 seen and examined at bedside Plan for hemodialysis today Remains obtunded during my encounter this morning No distress on exam Review of Systems Review of Systems: Unobtainable due to reduced consciousness Physical Exam Physical Exam: Physical Exam: Vitals signs as noted above General Appearance:Moderately built and nourished, no apparent distress, Obtunded Head: normocephalic, Atraumatic Eyes: normal inspection Neck: supple, Trachea midline Respiratory/Chest: Normal breath sounds, CTA Cardiovascular: S1, S2, + murmur Abdomen/GI:Soft, Non tender, Bowel sounds present Extremities/Musculoskeletal:normal inspection, no edema Neurologic/Psych:Obtunded Skin: normal color, warm Results & Data Results & Data ([facility]) Vital Signs (Past 12 Hours) Vital Signs Temp Pulse Pulse Resp BP BP Pulse Ox 01/26/21 16:40 67 102/59 L 01/26/21 16:20 61 112/63 01/26/21 16:00 63 99/54 L 01/26/21 15:44 36.7 C 74 20 148/78 H 96 01/26/21 15:40 59 L 98/55 L 01/26/21 15:20 59 L 103/63 01/26/21 14:44 56 L 131/59 L 01/26/21 14:40 36.8 C 56 L 01/26/21 11:45 36.8 C 76 16 158/62 H 95 01/26/21 08:00 36.9 C 60 60 18 160/59 H 96 Laboratory Results Short CBC 01/26/21 Range/Units 05:28 WBC 9.00 (4.8-10.8) K/uL Hgb 10.8 L (12.0-16.0) g/dL Hct 34.5 L (37-47) % Plt Count 196 (130-400) K/uL BMP 01/26/21 05:28 Sodium 140 Potassium 4.3 Chloride 108 H Carbon Dioxide 26 BUN 68 H Creatinine 5.20 H* D Glucose 109 H Calcium 8.2 L (1) Hypertension Hypertension type: essential hypertension Qualified Code(s): I10 - Essential (primary) hypertension
[2021-01-26 19:12] LABS: Allen Test Pos (Pos); Base Excess ABG 1.2 mEq/L (-9-1.8); HCO3 ABG 25 mmol/L (19-24); Oxygen Saturation ABG 98.3 % (90-95); PCO2 ABG 36 mmHg (35-46); PO2 ABG 110 mmHg (80-95); pH ABG 7.46 (7.35-7.45)
--- NOTE | 2021-01-26 22:26 | Progress Notes ---
NEUROLOGY PROGRESS NOTE DATE OF SERVICE: 01/26/2021 CHIEF COMPLAINT: Altered mental status. HISTORY OF PRESENT ILLNESS: A 70-year-old female. The patient was seen and examined in the dialysis unit this afternoon. The patient is nonresponsive to verbal or sternal rub. She does move both fee t as well as legs to noxious stimuli. She is not answering questions or speaking. OBJECTIVE: VITAL SIGNS: Blood pressure 151/71, pulse 76, respiratory rate 22, temperature is 36.7 degrees Celsi us, oxygen saturations 98% on 2 liters. NEUROLOGIC: The patient is sleeping and minimally arouses to sternal rub. Forced eye closure. Tong ue appears to be midline. No myoclonic jerks or tremor. Moving all 4 extremities spontaneously. Se nsation is intact to noxious stimuli in both legs. Toes are downgoing. ASSESSMENT AND PLAN: A 70-year-old woman admitted with presumed metabolic encephalopathy due to poly pharmacy. The patient is noted to have reported myoclonic jerks, although I have not yet seen a hype rkinetic movement disorder of concern. Routine EEG showed generalized slowing. Strongly recommend a voiding any sedative agents. Would not start an antiepileptic medication at this time. Job ID: [id number]
[2021-01-27] MEDS: HEPARIN SOD 5,000 UNIT/0.5 ML VIAL SQ SCH (04:53)
[2021-01-27 07:28] LABS: Hematocrit (blood only) 36.2 % (37-47); Hemoglobin 11.6 g/dL (12.0-16.0); Mean Corpuscular Hemoglobin 29.4 pg (25-34); Mean Corpuscular Volume 91.9 fL (80-100); Mean Platelet Volume 10.1 fL (7.4-10.4); Platelet Count 248 K/uL (130-400); RDW Standard Deviation 50.8 fL (36.4-46.3); Red Blood Count 3.94 M/uL (4.2-5.4); White Blood Count 10.36 K/uL (4.8-10.8)
[2021-01-27 08:04] LABS: Hepatitis B Surface Ab Quant < 3.10 mIU/mL (>or=10mIU/mL Immune); Hepatitis B Surface Antibody Non-Immune
[2021-01-27 08:15] LABS: Hepatitis B Surf Ag Rflx Conf Neg (Neg)
[2021-01-27 08:38] LABS: BUN Creatinine Ratio 10.3 (10-20); Calcium 9.1 mg/dl (8.5-10.1); Creatinine Clr Calc Pharmacy 11.7 ml/min; Est GFR (African American) 13.1 ml/min; Est GFR (Non-African American) 11.3 ml/min; Potassium 3.8 mmol/L (3.5-5.1)
[2021-01-27] MEDS: INSULIN ASPART 100 UNITS/ML 3 ML PEN SC SCH ×4 (08:56→21:08)
[2021-01-27] MEDS: INSULIN GLARGINE SOLOSTAR 100 UNITS/ML 3 ML PEN SC SCH ×2 (08:57→21:07)
--- NOTE | 2021-01-27 09:37 | Nephrology Progress Note ---
Date of Service January 27, 2021 Assessment & Plan Admission and Anticipated Discharge Date Admission Date: January 25, 2021 Subjective Subjective Seems lot more alert today. she even recognized me by name and we chatted briefly. But still lot more confused than her usual. labs reviewed. Physical Exam: Constitutional: More alert today and talking Respiratory: lungs clear to auscultation, no wheeze, rales, rhonchi. Normal insp/exp effort, no accessory muscle use Cardiovascular: , RRR, no murmur, no edema Vessels: no JVD or carotid bruit Abdomen: normal bowel sounds, soft, nontender, no hepatosplenomegaly Musculoskeletal: no cyanosis or clubbing, extremities AROM x 4, myoclonic tonic clonic jerking, strength unable to be assessed Lymphatic: no cervical or axillary lymphadenopathy : incontinent A/p--70/F admitted with encephalopathy likely Polysubstance abuse ( opioids, marijuana, metabolic encephalopathy). ESRD on HD --TTS. ESRD---given the etiology of encephalopathy likely Polysubstance abuse ( opioids, marijuana, metabolic encephalopathy) she did improve a lot after dialysis. Today she recognized me by name. Next Dialysis tomorrow. 3hrs and no fluid off. Results & Data ([facility]) Vital Signs (Past 12 Hours) Vital Signs Temp Pulse Pulse Pulse Resp BP Pulse Ox 01/27/21 08:08 83 164/69 H 01/27/21 08:01 37.2 C 86 19 171/67 H 95 01/27/21 04:55 36.7 C 82 16 195/70 H 98 01/26/21 23:33 70 01/26/21 22:40 36.6 C 76 14 165/71 H 94
[2021-01-27] MEDS ORDERED: METOPROLOL TARTRATE 1 MG/ML VIAL IV PRN (09:45)
[2021-01-27] MEDS ORDERED: Heparin IV Adult Wt-Based Standard *NO* Bolus Protocol IV SCH (09:57)
[2021-01-27] MEDS ORDERED: 0.2 MICRON FILTER SET 1 EA IV ONE (10:36)
[2021-01-27] MEDS ORDERED: AMIODARONE / D5W 150 MG/100 ML BAG IV STA (10:36)
[2021-01-27] MEDS ORDERED: AMIODARONE IV BOLUS & DRIP IV STA (10:36)
[2021-01-27] MEDS ORDERED: STAT IV Infusion **Titration per Protocol STA (10:36)
[2021-01-27] MEDS ORDERED: AMIODARONE / D5W 360 MG/200 ML BAG IV ONE (10:46)
--- NOTE | 2021-01-27 10:52 | Cardiology Consultation ---
Date of Consultation January 27, 2021 Assessment & Plan (1) Atrial fibrillation with RVR: (2) Altered mental status: (3) History of CVA (cerebrovascular accident): (4) History of coronary artery disease: (5) HTN (hypertension): Patient admitted for altered mental status changes/acute metabolic encephalopathy. Today she developed new onset atrial fibrillation with RVR. She was asymptomatic, but review of systems is limited due to cognitive status. appears more awake/alert today compared to earlier this admission based on chart review. 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 Apparently she also has a chart history of CVA in 2014. CHADSVASC score of 7 correlating with 11.2% stroke risk per year based on history and longterm anticoagulation would be recommended given recent episode of PAF. she is on chronic ASA/Plavix for carotid disease/CABG. No recent intervention. Would be acceptable to discontinue Plavix and start coumadin for longterm anticoagulation. Given ESRD, not a candidate for DOAC. One dose IV metoprolol 5 mg was given this morning and patient converted to NSR. Metoprolol tartrate 25 mg BID also initiated and will continue to maintain NSR. If she has recurrent arrhythmias, consider amiodarone. IV heparin also initiated and will be continued at this time. Will likely need transitioned to coumadin. Case discussed with Dr. Cedeno. Will follow. History of Present Illness Reason for Consultation: afib RVR Requesting Physician: Dr. Rangel Attending Physician: Dr. Cedeno History of Present Illness Patient is a 70 year old female who is known to [facility] cardiology, Dr. Hernandez, for history of CAD, remote CABG in 2007, history of post op afib at that time, Cerebral vascular disease with prior CVA per chart records in 2014, moderate right sided carotid stenosis followed by vascular surgery, ESRD on dialysis, labile hypertension, and chronic tobacco abuse. She was admitted to [facility] with acute mental status changes, metabolic encephalopathy possibly from polysubstance abuse. SHe had been found at home unresponsive. Brain MRI has been unremarkable. Neurology has been consulted. Slowly during hospitalization, patient has become more awake/alert. She is not able to provide a history today at time of consult, but is answering "yes or no" questions appropriately. Earlier this morning around 9:36 AM, patient went into new onset atrial fibrillation with RVR with rates ranging 130-170. Metoprolol 5 mg IV was ordered and provided, metoprolol tartrate 25 BID was also initiated (but not yet received first dose) and heparin infusion initiated. Cardiology was also consulted. At time of consult, patient feeling fine. Denies complaints or symptoms of palpitations. By the time this consult was completed, patient had converted to NSR around 10:40 AM. Allergies Allergy/AdvReac Type Severity Reaction Status Date / Time bee venom protein (honey bee) Allergy Intermediate MOUTH Verified 01/25/21 07:40 SWELLING prednisone Allergy Intermediate SWELLING Verified 01/25/21 07:40 OG HANDS, ITCHING, RASH tomato Allergy Intermediate Hives Verified 01/25/21 07:40 Penicillins Allergy Mild RASH Verified 01/25/21 07:40 rosuvastatin Allergy Mild SEVERE H/A Verified 01/25/21 07:40 trazodone AdvReac Severe Confusion Verified 01/25/21 07:40 [id number] Reductase AdvReac Mild EFFECTED Verified 01/25/21 07:40 Inhibitor LIVER [Btrrdmt-Dcs-Ynr Reductase STUDIES Inhibitor] Home Medications Medication Instructions Recorded Confirmed Type albuterol sulfate 90 mcg/actuation 2 puff INHALATION QID PRN 02/18/18 01/25/21 History breath activated powder inhaler (ProAir RespiClick) aspirin 81 mg tablet,delayed 81 mg PO QAM 02/18/18 01/25/21 History release (Aspirin Low Dose) azelastine 205.5 mcg (0.15 %) 1 spray INTRANASAL QAM 02/18/18 01/25/21 History nasal spray clopidogrel 75 mg tablet (Plavix) 75 mg PO QAM 02/18/18 01/25/21 History fluticasone propionate 50 1 spray INTRANASAL DAILY PRN 02/18/18 01/25/21 History mcg/actuation nasal spray,suspension (Flonase Allergy Relief) levothyroxine 25 mcg tablet 25 mcg PO QAM 02/18/18 01/25/21 History montelukast 10 mg tablet 10 mg PO HS 02/18/18 01/25/21 History (Singulair) sertraline 100 mg tablet (Zoloft) 150 mg PO QAM 02/18/18 01/25/21 History sevelamer carbonate 800 mg tablet 1,600 mg PO TIDM 03/26/19 01/25/21 History (Renvela) suvorexant 20 mg tablet (Belsomra) 20 mg PO HS 03/26/19 01/25/21 History amlodipine 10 mg tablet (Norvasc) 10 mg PO QAM 03/23/20 01/25/21 History hydralazine 25 mg tablet 50 mg PO QPM 03/23/20 01/25/21 History linagliptin 5 mg tablet (Tradjenta) 5 mg PO QAM 03/23/20 01/25/21 History nitroglycerin 0.4 mg sublingual 0.4 mg SUBLINGUAL UD PRN 03/23/20 01/25/21 History tablet (Nitrostat) furosemide 40 mg tablet 40 mg PO QAM 01/07/21 01/25/21 History levocetirizine 5 mg tablet (Xyzal) 5 mg PO PM 01/07/21 01/25/21 History oxycodone-acetaminophen 5 mg-325 1 tab PO Q8H PRN #10 tab 01/09/21 01/25/21 Rx mg tablet (Percocet) ammonium lactate 12 % topical cream 1 applic TOPICAL DAILY PRN 01/25/21 01/25/21 History buspirone 5 mg tablet 5 mg PO BID 01/25/21 01/25/21 History cholecalciferol (vitamin D3) 25 25 mcg PO DAILY 01/25/21 01/25/21 History mcg (1,000 unit) capsule (Vitamin D3) cyclobenzaprine 5 mg tablet 5 mg PO UD 01/25/21 01/25/21 History epinephrine 0.3 mg/0.3 mL 0.3 mg IM Q4H PRN 01/25/21 01/25/21 History injection, auto-injector fluticasone furoate 100 1 inh INHALATION BID 01/25/21 01/25/21 History mcg-vilanterol 25 mcg/dose inhalation powder (Breo Ellipta) ipratropium 0.5 mg-albuterol 3 mg 3 ml INHALATION Q4H PRN 01/25/21 01/25/21 History (2.5 mg base)/3 mL nebulization soln ondansetron HCl 8 mg tablet 8 mg PO TID PRN 01/25/21 01/25/21 History potassium gluconate 600 mg (99 mg) 600 mg PO DAILY 01/25/21 01/25/21 History tablet Patient History Medical History Anemia Anxiety Asthma Uses albuterol daily. Atrial fibrillation FOLLOWED BY DR. CARROLL AV fistula Depression Diabetes mellitus, type 2 oral med End stage renal disease receiving hemodiaylsis Sunday//Saturdays in [place]. Follows Dr. Ramirez ([place], [place]). Endometriosis stage 4 GERD (gastroesophageal reflux disease) Hyperlipidemia Hypertension no medications currently - experiencing hypotension Hypothyroidism Kidney failure STAGE 4 NO DIALYSIS Migraine Myocardial Infarction 2007 Osteoarthritis Stroke X 2 2013 Surgical History History of abdominal surgery UMBILICAL MESH REMOVED (NECROTIC) History of adenoidectomy History of appendectomy History of martha hole surgery 2013 AFTER CVA TO "REMOVED FLUID" History of cardiac cath 2007 AT [facility] History of cataract surgery RT/LEFT History of section X 3 History of cholecystectomy History of colonoscopy History of coronary artery bypass graft 2007 3 [facility] History of esophagogastroduodenoscopy (EGD) History of herniorrhaphy X 3 REPAIRS History of surgery LEFT FOOT/ANKLE FX REPAIR S/P FALL (HARDWARE) History of tonsillectomy History of tooth extraction History of total abdominal hysterectomy and bilateral salpingo-oophorectomy History of total knee replacement LEFT Hx of hand surgery LEFT HAND SURGERY "TOOK BONES OUT" S/P arteriovenous (AV) fistula creation Left arm S/P panniculectomy Family History Brother Family history of diabetes mellitus Coronary heart disease Mother Family history of diabetes mellitus Other No family history of adverse response to anesthesia Social History Smoking Status: Unknown if ever smoked Tobacco Type: Cigarettes Cigarettes Per Day: 1; Second Hand Exposure: Yes; Hx Alcohol Use: No Hx Substance Use: Yes Last Used Substance: Hours (ago) Substance Use Type Other:: unable to respond Preferred Language: Norwegian Communication Ability: Unable Visual Impairment: No Limitations Surface Water Technician Required: No Beliefs That Will Affect Care: None Current Living Situation: Alone Other Information That Helps Us Care for You: No Assistive Devices: None Review of Systems Review of Systems: Other (Limited due to current cognitive status. Able to answer yes or no questions. ) Physical Exam Constitutional: + thin and + altered mental status; no acute distress Neck: trachea midline, no thyromegaly Respiratory: normal respiratory effort, lungs clear to auscultation Cardiovascular: Rate/Rhythm: regular rate and regular rhythm Heart Sounds: normal S1, normal S2 and + murmur (II/ systolic murmur) Gastrointestinal (Abdomen): normal bowel sounds, soft, nontender, no hepatosplenomegaly Neurologic: awake and + confused Results & Data ([facility]) Vital Signs (Past 12 Hours) Vital Signs Temp Pulse Pulse Pulse Resp BP BP 01/27/21 09:53 134 H 132/69 01/27/21 08:08 83 164/69 H 01/27/21 08:01 37.2 C 86 19 171/67 H 01/27/21 04:55 36.7 C 82 16 195/70 H 01/26/21 23:33 70 Pulse Ox 01/27/21 09:53 01/27/21 08:08 01/27/21 08:01 95 01/27/21 04:55 98 01/26/21 23:33 Laboratory Results 01/27/21 01/27/21 01/27/21 Range/Units 11:40 11:22 07:42 WBC (4.8-10.8) K/uL RBC (4.2-5.4) M/uL Hgb (12.0-16.0) g/dL Hct (37-47) % MCV (80-100) fL MCH (25-34) pg MCHC (32-36) g/dL RDW Std Deviation (36.4-46.3) fL RDW Coeff of Odilon (11.5-14.5) % Plt Count (130-400) K/uL MPV (7.4-10.4) fL PT 10.0 (9.0-12.0) Seconds INR 1.0 (0.9-1.1) APTT 29.4 (21.0-31.0) Seconds PTT Ratio 1.1 ABG pH (7.35-7.45) ABG pCO2 (35-46) mmHg ABG pO2 (80-95) mmHg ABG HCO3 (19-24) mmol/L ABG O2 Saturation (90-95) % ABG Base Excess (-9-1.8) mEq/L Rocco Test (Pos) Barometric Pressure mm/Hg Oxygen Given Sodium (136-145) mmol/L Potassium (3.5-5.1) mmol/L Chloride (98-107) mmol/L Carbon Dioxide (21-32) mmol/L Anion Gap (3-11) BUN (7-18) mg/dl Creatinine (0.6-1.2) mg/dl Est Cr Clr Drug Dosing ml/min Est GFR ( Amer) ml/min Est GFR (Non-Af Amer) ml/min BUN/Creatinine Ratio (10-20) Glucose (70-99) mg/dl POC Glucose 149 H 173 H (70-99) mg/dl Calcium (8.5-10.1) mg/dl Hep Bs Antigen (Neg) Hep Bs Antibody Hep Bs Antibody, Quant (>or=10mIU/mL Immune) mIU/mL 01/27/21 01/27/21 01/27/21 Range/Units 07:04 07:04 07:04 WBC 10.36 (4.8-10.8) K/uL RBC 3.94 L (4.2-5.4) M/uL Hgb 11.6 L (12.0-16.0) g/dL Hct 36.2 L (37-47) % MCV 91.9 (80-100) fL MCH 29.4 (25-34) pg MCHC 32.0 (32-36) g/dL RDW Std Deviation 50.8 H (36.4-46.3) fL RDW Coeff of Odilon 15.0 H (11.5-14.5) % Plt Count 248 (130-400) K/uL MPV 10.1 (7.4-10.4) fL PT (9.0-12.0) Seconds INR (0.9-1.1) APTT (21.0-31.0) Seconds PTT Ratio ABG pH (7.35-7.45) ABG pCO2 (35-46) mmHg ABG pO2 (80-95) mmHg ABG HCO3 (19-24) mmol/L ABG O2 Saturation (90-95) % ABG Base Excess (-9-1.8) mEq/L Rocco Test (Pos) Barometric Pressure mm/Hg Oxygen Given Sodium 138 (136-145) mmol/L Potassium 3.8 (3.5-5.1) mmol/L Chloride 101 (98-107) mmol/L Carbon Dioxide 20 L (21-32) mmol/L Anion Gap 17.0 H (3-11) BUN 39 H (7-18) mg/dl Creatinine 3.76 H D (0.6-1.2) mg/dl Est Cr Clr Drug Dosing 11.7 ml/min Est GFR ( Amer) 13.1 ml/min Est GFR (Non-Af Amer) 11.3 ml/min BUN/Creatinine Ratio 10.3 (10-20) Glucose 156 H (70-99) mg/dl POC Glucose (70-99) mg/dl Calcium 9.1 (8.5-10.1) mg/dl Hep Bs Antigen Neg (Neg) Hep Bs Antibody Non-Immune Hep Bs Antibody, Quant < 3.10 L (>or=10mIU/mL Immune) mIU/mL 01/26/21 01/26/21 Range/Units 19:02 18:48 WBC (4.8-10.8) K/uL RBC (4.2-5.4) M/uL Hgb (12.0-16.0) g/dL Hct (37-47) % MCV (80-100) fL MCH (25-34) pg MCHC (32-36) g/dL RDW Std Deviation (36.4-46.3) fL RDW Coeff of Odilon (11.5-14.5) % Plt Count (130-400) K/uL MPV (7.4-10.4) fL PT (9.0-12.0) Seconds INR (0.9-1.1) APTT (21.0-31.0) Seconds PTT Ratio ABG pH 7.46 H (7.35-7.45) ABG pCO2 36 (35-46) mmHg ABG pO2 110 H (80-95) mmHg ABG HCO3 25 H (19-24) mmol/L ABG O2 Saturation 98.3 H (90-95) % ABG Base Excess 1.2 (-9-1.8) mEq/L Rocco Test Pos (Pos) Barometric Pressure 733.6 mm/Hg Oxygen Given 2% Sodium (136-145) mmol/L Potassium (3.5-5.1) mmol/L Chloride (98-107) mmol/L Carbon Dioxide (21-32) mmol/L Anion Gap (3-11) BUN (7-18) mg/dl Creatinine (0.6-1.2) mg/dl Est Cr Clr Drug Dosing ml/min Est GFR ( Amer) ml/min Est GFR (Non-Af Amer) ml/min BUN/Creatinine Ratio (10-20) Glucose (70-99) mg/dl POC Glucose 124 H (70-99) mg/dl Calcium (8.5-10.1) mg/dl Hep Bs Antigen (Neg) Hep Bs Antibody Hep Bs Antibody, Quant (>or=10mIU/mL Immune) mIU/mL Diagnostic Findings Telemetry reviewed: NSR during initial admission. Around 9:36 this AM she developed afib RVR, rates ranging 130-160's. At 10:40 AM she converted to NSR. EKG reviewed from 01/25 on admission - NSR, normal EKG EKG was not obtained during episode of afib that I can find Brain MRI report reviewed from admission: IMPRESSION: Mild motion artifact. No definite acute intracranial abnormality. Head CT on admission: Impression: No acute intracranial hemorrhage, evidence of acute territorial infarction, or other acute intracranial disease proces Prior outpatient data: Outpatient DSE 10/2019: Interpretation Summary The primary indication after review was deemed appropriate and the examination was performed. The Dobutamine stress echo is negative for inducible ischemia. There was adequate and appropriate heart rate and blood pressure response to dobutamine stress. The left ventricular wall motion with stress is normal. The qualitative LV ejection fraction is 60-64% (normal). The left ventricular diastolic function is mildly abnormal (grade I). Mild aortic valve sclerosis is present. Mild tricuspid regurgitation is present. The estimated pulmonary artery systolic pressure is 30-35mm Hg. There is a small patent foramen ovale. Presence of PFO was documented on previous study. Outpatient carotid duplex 2019: Impression: Right carotid artery duplex examination indicates evidence of 50-69% stenosis of the internal carotid artery. Left carotid artery duplex examination indicates evidence of less than 50% stenosis of the internal carotid artery. Medications Administered Current Inpatient Medications Acetaminophen (Acetaminophen 325 Mg Tab) 650 mg PO Q4H PRN PRN Reason: Pain or Fever Stop: 02/24/21 10:36 Aspirin (Aspirin 81 Mg Ectab) [facility] [place]: 02/26/21 09:59 Last Admin: 01/27/21 11:07 Dose: 81 mg Documented by: Clopidogrel Bisulfate (Clopidogrel Bisulfate 75 Mg Tab) 75 mg PO QAM [facility] Stop: 02/26/21 09:59 Last Admin: 01/27/21 11:07 Dose: 75 mg Documented by: Dextrose (Dextrose 50% 50 Ml Syringe) 25 - 50 ml IV UD PRN; Protocol PRN Reason: Hypoglycemia Protocol Stop: 02/24/21 10:36 Fluticasone/Vilanterol (Fluticasone/Vilanterol 100/25mcg 14 Puffs/Inhaler) 1 puffs INH BID [facility] Stop: 02/26/21 20:59 Glucagon (Glucagon For Inj 1 Mg Vial) 1 mg SQ UD PRN; Protocol PRN Reason: Hypoglycemia Protocol Stop: 02/24/21 10:36 Glucose (Glucose 10 Tabs/Tube) 4 - 8 tabs PO UD PRN; Protocol PRN Reason: Hypoglycemia Protocol Stop: 02/24/21 10:36 Glucose (Glucose 40% Gel 15 Gm Tube) 15 - 30 gm PO UD PRN; Protocol PRN Reason: Hypoglycemia Protocol Stop: 02/24/21 10:36 Ceftriaxone Sodium 1,000 mg/ (Dextrose) 50 mls @ 100 mls/hr IV Q24H [facility]; Protocol Stop: 01/30/21 11:59 Last Infusion: 01/26/21 13:49 Dose: Infused Documented by: Sodium Chloride (Nss 1000ml) 1,000 mls @ 0 mls/hr IV .Q0M PRN PRN Reason: For Hemodialysis Use ONLY Stop: 01/28/21 12:59 Heparin Sodium/Dextrose (Heparin Sodium/Dextrose) 25,000 units in 500 mls @ 21 mls/hr IV .[id number] [facility]; Protocol Stop: 02/26/21 10:14 Last Admin: 01/27/21 12:04 Dose: 1,050 units/hr, 21 mls/hr Documented by: Insulin Aspart (Insulin Aspart 100 Units/Ml 3 Ml Pen) [facility] Stop: 02/24/21 11:29 Last Admin: 01/27/21 12:04 Dose: Not Given Documented by: Insulin Glargine (Insulin Glargine Solostar 100 Units/Ml 3 Ml Pen) 0 - 8 units SC BID [facility] Stop: 02/24/21 10:36 Last Admin: 01/27/21 08:57 Dose: 4 units Documented by: Levothyroxine Sodium (Levothyroxine Sodium 25 Mcg Tablet) 25 mcg PO DAILYBB [facility] Stop: 02/26/21 09:59 Last Admin: 01/27/21 11:07 Dose: 25 mcg Documented by: Metoprolol Tartrate (Metoprolol Tartrate 1 Mg/Ml Vial) 5 mg IV Q6 PRN PRN Reason: Tachycardia Stop: 02/26/21 11:59 Last Admin: 01/27/21 09:53 Dose: 5 mg Documented by: Metoprolol Tartrate (Metoprolol Tartrate 25 Mg Tab) 25 mg PO BID [facility] Stop: 02/26/21 09:59 Last Admin: 01/27/21 11:06 Dose: 25 mg Documented by: Miscellaneous (Carbohydrates For Hypoglycemia ) 15 - 30 gm PO UD PRN PRN Reason: Hypoglycemia Protocol Stop: 02/24/21 10:36 Montelukast Sodium (Montelukast Sodium 10 Mg Tablet) 10 mg PO HS [facility] Stop: 02/26/21 20:59 Ondansetron HCl (Ondansetron Inj 2 Mg/Ml 2 Ml Vial) 4 mg IV Q6H PRN PRN Reason: Nausea Stop: 02/24/21 10:36 Polyethylene Glycol (Polyethylene (Miralax) 17 Gm Pack) 17 gm PO DAILY PRN PRN Reason: Constipation Stop: 02/24/21 10:36 (1) Altered mental status Altered mental status type: somnolence Qualified Code(s): R40.0 - Somnolence
[2021-01-27] MEDS ORDERED: HEPARIN 25000 UNIT/500 ML D5W IV ONE (11:04)
[2021-01-27] MEDS: METOPROLOL TARTRATE 25 MG TAB PO SCH ×2 (11:06→19:32)
[2021-01-27] MEDS: ASPIRIN 81 MG ECTAB PO SCH (11:07)
[2021-01-27] MEDS: CLOPIDOGREL BISULFATE 75 MG TAB PO SCH (11:07)
[2021-01-27] MEDS: LEVOTHYROXINE SODIUM 25 MCG TABLET PO SCH (11:07)
[2021-01-27 11:52] LABS: Partial Thromboplastin Ratio 1.1; Partial Thromboplastin Time 29.4 Seconds (21.0-31.0)
[2021-01-27] MEDS: cefTRIAXone SODIUM 1,000 MG in DEXTROSE 5% 50 ML IV SCH (12:00)
[2021-01-27] MEDS: HEPARIN SODIUM/DEXTROSE 25,000 UNITS/500 ML BAG IV SCH (12:04)
--- NOTE | 2021-01-27 15:15 | Electrocardiogram Report ---
Test Reason : Blood Pressure : / mmHG Vent. Rate : 149 BPM Atrial Rate : 174 BPM P-R Int : 000 ms QRS Dur : 072 ms QT Int : 308 ms P-R-T Axes : 000 058 249 degrees QTc Int : 485 ms Poor data quality, interpretation may be adversely affected Atrial fibrillation with rapid ventricular response Marked ST abnormality, possible lateral subendocardial injury Abnormal ECG When compared with ECG of 25-JAN-2021 06:12, Atrial fibrillation has replaced Sinus rhythm Vent. rate has increased BY [address] now depressed in Anterolateral leads T wave inversion now evident in Inferior leads T wave inversion now evident in Anterolateral leads Confirmed by Romel Sheets ([id number]) on 01/27/2021 3:14:48 PM Referred By: REFERRED SELF Confirmed By:Romel Sheets
[2021-01-27] MEDS ORDERED: AMIODARONE / D5W 360 MG/200 ML BAG IV SCH (16:45)
[2021-01-27 18:32] LABS: Partial Thromboplastin Time 53.8 Seconds (21.0-31.0)
--- NOTE | 2021-01-27 18:41 | Hospitalist Progress Note ---
Date of Service January 27, 2021 Assessment & Plan (1) Altered mental status: Plan: Patient is a 70 yr female who has a significant past medical history of CAD status post CABG, ESRD T//, T2DM, HTN, HLD, history of marijuana use, hypothyroidism, history of A. fib who presents to ED 2/2 to AMS and unresponsiveness. Limited hx given obtundation, son provided minimal history, pt lives alone. Upon my evaluation pt had agonal breathing and bradycardia. There was concern of possible polypharmacy or drug use given known oxycodone prescription and marijuana use; therefore IV narcan was administered.Pt aroused immediately and developed seizure like activity vs myoclonic jerking of all extremities, pt would even occasionally mumble words that were not comprehensible. Acute metabolic encephalopathy Seizure like activity vs Myoclonus Vs polypharmacy/Abuse ; UTI; in setting of ESRD Recent hospitalization 01/07- 2/2 to concern for CVA and myoclonus - felt 2/2 to consistent Remeron use/possible opiates - Remeron was discontinued, unknown if still taking CT head: negative MRI Brain:Mild motion artifact. No definite acute intracranial abnormality. seizure precautions, neuro checks --EEG:This is an abnormal routine EEG in a patient with altered mentation due to generalized background slowing suggestive of a nonspecific encephalopathy. No epileptiform activity is recorded. Toxicology Screen: Positive for opiates, marijuana Appreciate Neurology Input Hold all sedative medications aspiration precautions No antiepileptics recommended per Neuro No recurrence of myoclonic jerks Mental status seems to be slowly improving after dialysis Plan for repeat hemodialysis tomorrow Patient unable to recollect events prior to admission A. fib RVR Started on metoprolol 25 mg daily IV Lopressor as needed Started on IV heparin Appreciate Cardiology Input ESRD HD / Plan for hemodialysis tomorrow Appreciate nephrology input UTI Urine culture growing E.Coli Blood cultures no growth to date Continue Rocephin DM II last a1C 6.4 01/08/21 hold tradjenta lantus/novolog per protocol HTN Resume amlodipine Hold hydralazine, furosemide for now CAD hx of CABG Restarted Asa, plavix Known Opiate use/possible opiate abuse +Marijuana, Opiates on drug screen Avoid any sedative meds Psychiatry consulted Hypothyroidism Continue levothyroxine Depression/Grief Recently lost her on zoloft Psych consult Insomnia Is on Belsomra Currently held Plan to DC upon discharge given risk for polypharmacy DVT Px: IV Heparin Code Status FULL CODE Admission and Anticipated Discharge Date Admission Date: January 25, 2021 Subjective Patient is seen and examined at bedside More alert awake today Oriented to person, place Still intermittently confused Follows simple commands A. fib RVR on monitor this morning, but asymptomatic Plan for dialysis again tomorrow Denies chest pain, shortness of breath, dizziness, nausea, abdominal pain Could not recollect events prior to admission. Review of Systems Review of Systems: All systems reviewed & are unremarkable except as noted in Subjective Physical Exam Physical Exam: Physical Exam: Vitals signs as noted above General Appearance:Moderately built and nourished, no apparent distress Head: normocephalic, Atraumatic Eyes: normal inspection Neck: supple, Trachea midline Respiratory/Chest: Normal breath sounds, CTA Cardiovascular: Irregularly Irregular, Tachycardia, + murmur Abdomen/GI:Soft, Non tender, Bowel sounds present Extremities/Musculoskeletal:normal inspection, no edema Neurologic/Psych: Alert awake, no focal deficits Skin: normal color, warm Results & Data Results & Data ([facility]) Vital Signs (Past 12 Hours) Vital Signs Temp Pulse Pulse Pulse Resp BP BP 01/27/21 17:54 01/27/21 17:48 01/27/21 16:52 37.0 C 74 20 01/27/21 12:02 37.3 C 75 18 159/68 H 01/27/21 10:54 88 01/27/21 09:53 134 H 132/69 01/27/21 08:08 83 164/69 H 01/27/21 08:01 37.2 C 86 19 171/67 H BP Pulse Ox 01/27/21 17:54 162/74 H 01/27/21 17:48 200/93 H 01/27/21 16:52 94 01/27/21 12:02 96 01/27/21 10:54 01/27/21 09:53 01/27/21 08:08 01/27/21 08:01 95 Laboratory Results Short CBC 01/27/21 Range/Units 07:04 WBC 10.36 (4.8-10.8) K/uL Hgb 11.6 L (12.0-16.0) g/dL Hct 36.2 L (37-47) % Plt Count 248 (130-400) K/uL BMP 01/27/21 07:04 Sodium 138 Potassium 3.8 Chloride 101 Carbon Dioxide 20 L BUN 39 H Creatinine 3.76 H D Glucose 156 H Calcium 9.1 (1) Altered mental status Altered mental status type: somnolence Qualified Code(s): R40.0 - Somnolence
[2021-01-27] MEDS: amLODIPine BESYLATE 5 MG TAB PO SCH (19:31)
[2021-01-27] MEDS: FLUTICASONE/VILANTEROL 100/25MCG 14 PUFFS/INHALER INH SCH (19:32)
[2021-01-27] MEDS: MONTELUKAST SODIUM 10 MG TABLET PO SCH (19:33)
--- NOTE | 2021-01-27 20:23 | Consultation Report ---
NEUROLOGY PROGRESS NOTE DATE OF NOTE: 01/27/2021. CHIEF COMPLAINT: Encephalopathy. SUBJECTIVE: The patient was seen and examined this afternoon. The patient's mentation has drastical ly improved. She is sitting upright in bed, very conversive. Reports feeling much better. She christian es any pain, weakness or numbness. She does report losing her several years ago, which still causes her distress. The patient has improved markedly after receiving dialysis yesterday. OBJECTIVE: VITAL SIGNS: Blood pressure 159/68, pulse is 75, respiratory rate 18, temperature 37.3 degrees Celsi us. GENERAL: The patient is awake, alert, oriented to age and time. She is following simple commands. HEENT: Eyes are midline. Extraocular muscles are intact. Face is symmetric. Tongue is midline. N o focal weakness. Sensation is intact. No tremor or myoclonic jerks. DIAGNOSTIC TESTING AND LABORATORY VALUES: WBC 10.36, platelet count 248. Hemoglobin 11.6. Sodium 1 38, potassium 3.8, chloride 101, carbon dioxide 20, BUN 39, creatinine 3.76. ASSESSMENT AND PLAN: A 70-year-old woman admitted with metabolic encephalopathy, likely due to presu med polysubstance/polypharmacy use. Patient's mentation has improved significantly with the use of d ialysis as well as holding sedative medications. The patient currently back to baseline. No abnorma l movements noted on examination. No additional neurological workup necessary. Neurology will sign off for now, please contact me with any additional questions or concerns. Job ID: [id number]
[2021-01-27] MEDS: MELATONIN 3 MG TAB PO PRN (21:43)
[2021-01-27 23:52] LABS: Codeine Urine NEGATIVE ng/mL (<50); Hydrocodone Urine NEGATIVE ng/mL (<50); Hydromor Urine NEGATIVE ng/mL (<50); Marijuana Quant, GCMS Urine 7 ng/mL (<5); Morphine Urine 343 ng/mL (<50); Norhydrocodone Conf Ur NEGATIVE ng/mL (<50); Noroxycodone Urine 674 ng/mL (<50); Oxycodone Urine NEGATIVE ng/mL (<50); Oxymorph Urine 738 ng/mL (<50)
[2021-01-28] MEDS ORDERED: MELATONIN 3 MG TAB PO STA (01:12)
[2021-01-28] MEDS ORDERED: ACETAMINOPHEN 1000 MG/100 ML IV IV ONE (01:12)
[2021-01-28] MEDS ORDERED: ACETAMINOPHEN 325 MG TAB PO STA (05:10)
[2021-01-28] MEDS ORDERED: GABAPENTIN 100 MG CAP PO STA (05:10)
[2021-01-28] MEDS: LEVOTHYROXINE SODIUM 25 MCG TABLET PO SCH (05:25)
[2021-01-28] MEDS ORDERED: SODIUM CHLORIDE 0.9% 1000ML 1,000 ML IV PRN (07:00)
[2021-01-28] MEDS: ASPIRIN 81 MG ECTAB PO SCH (08:24)
[2021-01-28] MEDS: CLOPIDOGREL BISULFATE 75 MG TAB PO SCH (08:24)
[2021-01-28] MEDS: METOPROLOL TARTRATE 25 MG TAB PO SCH ×2 (08:24→20:08)
[2021-01-28] MEDS: amLODIPine BESYLATE 5 MG TAB PO SCH (08:24)
[2021-01-28] MEDS: INSULIN ASPART 100 UNITS/ML 3 ML PEN SC SCH ×4 (08:24→20:07)
[2021-01-28] MEDS: FLUTICASONE/VILANTEROL 100/25MCG 14 PUFFS/INHALER INH SCH ×2 (08:25→20:08)
[2021-01-28] MEDS: INSULIN GLARGINE SOLOSTAR 100 UNITS/ML 3 ML PEN SC SCH ×2 (08:25→20:10)
[2021-01-28 08:33] LABS: Hematocrit (blood only) 36.2 % (37-47); Mean Corpuscular Hemoglobin 29.6 pg (25-34); Mean Corpuscular Hgb Conc 33.1 g/dL (32-36); Mean Corpuscular Volume 89.2 fL (80-100); Mean Platelet Volume 10.1 fL (7.4-10.4); Platelet Count 250 K/uL (130-400); RDW Coefficient of Variation 14.7 % (11.5-14.5); RDW Standard Deviation 48.3 fL (36.4-46.3); Red Blood Count 4.06 M/uL (4.2-5.4); White Blood Count 7.22 K/uL (4.8-10.8)
[2021-01-28 08:53] LABS: Partial Thromboplastin Ratio 2.3
[2021-01-28 08:56] LABS: Partial Thromboplastin Time 61.5 Seconds (21.0-31.0)
[2021-01-28 09:18] LABS: BUN Creatinine Ratio 11.8 (10-20); Calcium 8.5 mg/dl (8.5-10.1); Creatinine Clr Calc Pharmacy 10.6 ml/min; Est GFR (African American) 10.4 ml/min; Magnesium 2.6 mg/dl (1.8-2.4); Potassium 3.8 mmol/L (3.5-5.1)
[2021-01-28] MEDS: HEPARIN SODIUM/DEXTROSE 25,000 UNITS/500 ML BAG IV SCH (10:45)
--- NOTE | 2021-01-28 10:51 | Cardiology Progress Note ---
Date of Service January 28, 2021 Assessment & Plan (1) Atrial fibrillation with RVR: (2) Altered mental status: (3) History of CVA (cerebrovascular accident): (4) History of coronary artery disease: (5) HTN (hypertension): Plan: Patient admitted for altered mental status changes/acute metabolic encephalopathy due to polysubstance abuse Developed new onset atrial fibrillation with RVR. Converted to NSR on IV metoprolol. Started on metoprolol tartrate 25 mg BID. 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 Apparently she also has a chart history of CVA in 2014. CHADSVASC score of 7 correlating with 11.2% stroke risk per year based on history and loaf counter anticoagulation would be recommended given recent episode of PAF. Spoke with patient today, as she was more awake/alert regarding anticoagulation and stroke risk. She is agreeable to Coumadin. Will transition hep to Coumadin. Stop Plavix as she has no recent cardiovascular interventions. Continue ASA. She will need to follow with coag clinic at [facility]. Case discussed with Dr. Ceedno. Will follow. Admission and Anticipated Discharge Date Admission Date: January 25, 2021 Supervising Physician Co-Signing Physician Notes Patient seen and examined with Gracie Ray PA-C. Agree with findings and assessment as above. CHADS vasc of 7. Pt agreeable to coumadin, follow up with coag clinic at [facility] as outpatient. Subjective Patient seen during dialysis. Awake and alert today. Conversing normally. answering questions appropriately. Denies chest pain or SOB. Admits she took "sleeping meds" and took 2 of her husbands pain pills prior to admission contributing to her unresponsiveness. No orthopnea, PND or edema. NO sense of palpitations. Review of Systems Review of Systems: All systems reviewed & are unremarkable except as noted in HPI & below Physical Exam Constitutional: WD/WN, vitals as above + thin; no acute distress Neck: trachea midline, no thyromegaly Respiratory: normal respiratory effort, lungs clear to auscultation Cardiovascular: Rate/Rhythm: regular rate and regular rhythm Heart Sounds: normal S1, normal S2 and + murmur (II/ systolic murmur) Gastrointestinal (Abdomen): normal bowel sounds, soft, nontender, no hepatosplenomegaly Skin: no rashes, warm and dry Neurologic: PERRL, EOMI, accommodation nl, no face palsy, no dysarthria awake Psychiatric: A+Ox3, euthymic affect Results & Data ([facility]) Vital Signs (Past 12 Hours) Vital Signs Temp Pulse Pulse Resp BP BP BP 01/28/21 10:39 58 L 144/74 H 01/28/21 10:20 76 172/58 H 01/28/21 10:00 61 146/78 H 01/28/21 09:40 60 152/78 H 01/28/21 09:14 68 176/80 H 01/28/21 09:09 36.6 C 68 01/28/21 08:34 36.6 C 70 16 192/76 H 01/28/21 02:53 37.0 C 64 18 157/73 H 01/28/21 01:48 174/89 H 01/27/21 23:28 37.0 C 60 62 17 185/70 H Pulse Ox 01/28/21 10:39 01/28/21 10:20 01/28/21 10:00 01/28/21 09:40 01/28/21 09:14 01/28/21 09:09 01/28/21 08:34 96 01/28/21 02:53 94 01/28/21 01:48 01/27/21 23:28 96 Laboratory Results 01/28/21 01/28/21 01/28/21 Range/Units 08:14 08:14 08:14 WBC 7.22 (4.8-10.8) K/uL RBC 4.06 L (4.2-5.4) M/uL Hgb 12.0 (12.0-16.0) g/dL Hct 36.2 L (37-47) % MCV 89.2 (80-100) fL MCH 29.6 (25-34) pg MCHC 33.1 (32-36) g/dL RDW Std Deviation 48.3 H (36.4-46.3) fL RDW Coeff of Odilon 14.7 H (11.5-14.5) % Plt Count 250 (130-400) K/uL MPV 10.1 (7.4-10.4) fL PT (9.0-12.0) Seconds INR (0.9-1.1) APTT 61.5 H* (21.0-31.0) Seconds PTT Ratio 2.3 Sodium 134 L (136-145) mmol/L Potassium 3.8 (3.5-5.1) mmol/L Chloride 97 L (98-107) mmol/L Carbon Dioxide 23 (21-32) mmol/L Anion Gap 13.0 H (3-11) BUN 54 H (7-18) mg/dl Creatinine 4.57 H* D (0.6-1.2) mg/dl Est Cr Clr Drug Dosing 10.6 ml/min Est GFR ( Amer) 10.4 ml/min Est GFR (Non-Af Amer) 9.0 ml/min BUN/Creatinine Ratio 11.8 (10-20) Glucose 179 H (70-99) mg/dl POC Glucose (70-99) mg/dl Calcium 8.5 (8.5-10.1) mg/dl Magnesium 2.6 H (1.8-2.4) mg/dl U Codeine Confrm GC/MS (<50) ng/mL Ur Morphine (GC/MS) (<50) ng/mL Ur Hydrocodone (GC/MS) (<50) ng/mL Ur Norhydrocodone (<50) ng/mL Ur Noroxycodone (<50) ng/mL Urine Oxycodone (GC/MS) (<50) ng/mL U Oxymorphone GC/MS (<50) ng/mL Ur Hydromorphone (GC/MS) (<50) ng/mL U Marijuana THC Carboxy (<5) ng/mL Drug Screen Comment 01/28/21 01/27/21 01/27/21 Range/Units 07:38 20:46 17:51 WBC (4.8-10.8) K/uL RBC (4.2-5.4) M/uL Hgb (12.0-16.0) g/dL Hct (37-47) % MCV (80-100) fL MCH (25-34) pg MCHC (32-36) g/dL RDW Std Deviation (36.4-46.3) fL RDW Coeff of Odilon (11.5-14.5) % Plt Count (130-400) K/uL MPV (7.4-10.4) fL PT (9.0-12.0) Seconds INR (0.9-1.1) APTT 53.8 H* (21.0-31.0) Seconds PTT Ratio 2.0 Sodium (136-145) mmol/L Potassium (3.5-5.1) mmol/L Chloride (98-107) mmol/L Carbon Dioxide (21-32) mmol/L Anion Gap (3-11) BUN (7-18) mg/dl Creatinine (0.6-1.2) mg/dl Est Cr Clr Drug Dosing ml/min Est GFR ( Amer) ml/min Est GFR (Non-Af Amer) ml/min BUN/Creatinine Ratio (10-20) Glucose (70-99) mg/dl POC Glucose 134 H 145 H (70-99) mg/dl Calcium (8.5-10.1) mg/dl Magnesium (1.8-2.4) mg/dl U Codeine Confrm GC/MS (<50) ng/mL Ur Morphine (GC/MS) (<50) ng/mL Ur Hydrocodone (GC/MS) (<50) ng/mL Ur Norhydrocodone (<50) ng/mL Ur Noroxycodone (<50) ng/mL Urine Oxycodone (GC/MS) (<50) ng/mL U Oxymorphone GC/MS (<50) ng/mL Ur Hydromorphone (GC/MS) (<50) ng/mL U Marijuana THC Carboxy (<5) ng/mL Drug Screen Comment 01/27/21 01/27/21 01/27/21 Range/Units 16:38 11:40 11:22 WBC (4.8-10.8) K/uL RBC (4.2-5.4) M/uL Hgb (12.0-16.0) g/dL Hct (37-47) % MCV (80-100) fL MCH (25-34) pg MCHC (32-36) g/dL RDW Std Deviation (36.4-46.3) fL RDW Coeff of Odilon (11.5-14.5) % Plt Count (130-400) K/uL MPV (7.4-10.4) fL PT 10.0 (9.0-12.0) Seconds INR 1.0 (0.9-1.1) APTT 29.4 (21.0-31.0) Seconds PTT Ratio 1.1 Sodium (136-145) mmol/L Potassium (3.5-5.1) mmol/L Chloride (98-107) mmol/L Carbon Dioxide (21-32) mmol/L Anion Gap (3-11) BUN (7-18) mg/dl Creatinine (0.6-1.2) mg/dl Est Cr Clr Drug Dosing ml/min Est GFR ( Amer) ml/min Est GFR (Non-Af Amer) ml/min BUN/Creatinine Ratio (10-20) Glucose (70-99) mg/dl POC Glucose 132 H 149 H (70-99) mg/dl Calcium (8.5-10.1) mg/dl Magnesium (1.8-2.4) mg/dl U Codeine Confrm GC/MS (<50) ng/mL Ur Morphine (GC/MS) (<50) ng/mL Ur Hydrocodone (GC/MS) (<50) ng/mL Ur Norhydrocodone (<50) ng/mL Ur Noroxycodone (<50) ng/mL Urine Oxycodone (GC/MS) (<50) ng/mL U Oxymorphone GC/MS (<50) ng/mL Ur Hydromorphone (GC/MS) (<50) ng/mL U Marijuana THC Carboxy (<5) ng/mL Drug Screen Comment 01/25/21 Range/Units 09:26 WBC (4.8-10.8) K/uL RBC (4.2-5.4) M/uL Hgb (12.0-16.0) g/dL Hct (37-47) % MCV (80-100) fL MCH (25-34) pg MCHC (32-36) g/dL RDW Std Deviation (36.4-46.3) fL RDW Coeff of Odilon (11.5-14.5) % Plt Count (130-400) K/uL MPV (7.4-10.4) fL PT (9.0-12.0) Seconds INR (0.9-1.1) APTT (21.0-31.0) Seconds PTT Ratio Sodium (136-145) mmol/L Potassium (3.5-5.1) mmol/L Chloride (98-107) mmol/L Carbon Dioxide (21-32) mmol/L Anion Gap (3-11) BUN (7-18) mg/dl Creatinine (0.6-1.2) mg/dl Est Cr Clr Drug Dosing ml/min Est GFR ( Amer) ml/min Est GFR (Non-Af Amer) ml/min BUN/Creatinine Ratio (10-20) Glucose (70-99) mg/dl POC Glucose (70-99) mg/dl Calcium (8.5-10.1) mg/dl Magnesium (1.8-2.4) mg/dl U Codeine Confrm GC/MS NEGATIVE (<50) ng/mL Ur Morphine (GC/MS) 343 H (<50) ng/mL Ur Hydrocodone (GC/MS) NEGATIVE (<50) ng/mL Ur Norhydrocodone NEGATIVE (<50) ng/mL Ur Noroxycodone 674 H (<50) ng/mL Urine Oxycodone (GC/MS) NEGATIVE (<50) ng/mL U Oxymorphone GC/MS 738 H (<50) ng/mL Ur Hydromorphone (GC/MS) NEGATIVE (<50) ng/mL U Marijuana THC Carboxy 7 H (<5) ng/mL Drug Screen Comment SEE NOTE Diagnostic Findings Telemetry reviewed - NSR in the 80's. one 8 beat run of atrial tach around midnight. No recurrent afib. Medications Administered Current Inpatient Medications Acetaminophen (Acetaminophen 325 Mg Tab) 650 mg PO Q4H PRN PRN Reason: Pain or Fever Stop: 02/24/21 10:36 Amlodipine Besylate (Amlodipine Besylate 5 Mg Tab) [address] [facility] Stop: 02/26/21 18:59 Last Admin: 01/28/21 08:24 Dose: 10 mg Documented by: Aspirin (Aspirin 81 Mg Ectab) [facility] Stop: 02/26/21 09:59 Last Admin: 01/28/21 08:24 Dose: 81 mg Documented by: Clopidogrel Bisulfate (Clopidogrel Bisulfate 75 Mg Tab) 75 [facility] Stop: 02/26/21 09:59 Last Admin: 01/28/21 08:24 Dose: 75 mg Documented by: Dextrose (Dextrose 50% 50 Ml Syringe) 25 - 50 ml IV UD PRN; Protocol PRN Reason: Hypoglycemia Protocol Stop: 02/24/21 10:36 Fluticasone/Vilanterol (Fluticasone/Vilanterol 100/25mcg 14 Puffs/Inhaler) 1 puffs INH BID [facility] Stop: 02/26/21 20:59 Last Admin: 01/28/21 08:25 Dose: 1 puffs Documented by: Glucagon (Glucagon For Inj 1 Mg Vial) 1 mg SQ UD PRN; Protocol PRN Reason: Hypoglycemia Protocol Stop: 02/24/21 10:36 Glucose (Glucose 10 Tabs/Tube) 4 - 8 tabs PO UD PRN; Protocol PRN Reason: Hypoglycemia Protocol Stop: 02/24/21 10:36 Glucose (Glucose 40% Gel 15 Gm Tube) 15 - 30 gm PO UD PRN; Protocol PRN Reason: Hypoglycemia Protocol Stop: 02/24/21 10:36 Ceftriaxone Sodium 1,000 mg/ (Dextrose) 50 mls @ 100 mls/hr IV Q24H [facility]; Protocol Stop: 01/30/21 11:59 Last Infusion: 01/27/21 12:30 Dose: Infused Documented by: Sodium Chloride (Nss 1000ml) 1,000 mls @ 0 mls/hr IV .Q0M PRN PRN Reason: For Hemodialysis Use ONLY Stop: 01/28/21 12:59 Heparin Sodium/Dextrose (Heparin Sodium/Dextrose) 25,000 units in 500 mls @ 21 mls/hr IV .[id number] [facility]; Protocol Stop: 02/26/21 10:14 Last Admin: 01/28/21 10:45 Dose: 1,050 units/hr, 21 mls/hr Documented by: Insulin Aspart (Insulin Aspart 100 Units/Ml 3 Ml Pen) 0 units SC ACHS [facility] Stop: 02/24/21 11:29 Last Admin: 01/28/21 08:24 Dose: 4 units Documented by: Insulin Glargine (Insulin Glargine Solostar 100 Units/Ml 3 Ml Pen) 0 - 8 units SC BID [facility] Stop: 02/24/21 10:36 Last Admin: 01/28/21 08:25 Dose: 4 units Documented by: Levothyroxine Sodium (Levothyroxine Sodium 25 Mcg Tablet) 25 mcg PO DAILYBB [facility] Stop: 02/26/21 09:59 Last Admin: 01/28/21 05:25 Dose: 25 mcg Documented by: Melatonin (Melatonin 3 Mg Tab) 3 mg PO HS PRN PRN Reason: Sleep Stop: 02/26/21 21:25 Last Admin: 01/27/21 21:43 Dose: 3 mg Documented by: Metoprolol Tartrate (Metoprolol Tartrate 1 Mg/Ml Vial) 5 mg IV Q6 PRN PRN Reason: Tachycardia Stop: 02/26/21 11:59 Last Admin: 01/27/21 09:53 Dose: 5 mg Documented by: Metoprolol Tartrate (Metoprolol Tartrate 25 Mg Tab) 25 mg PO BID [facility] Stop: 02/26/21 09:59 Last Admin: 01/28/21 08:24 Dose: 25 mg Documented by: Miscellaneous (Carbohydrates For Hypoglycemia ) 15 - 30 gm PO UD PRN PRN Reason: Hypoglycemia Protocol Stop: 02/24/21 10:36 Montelukast Sodium (Montelukast Sodium 10 Mg Tablet) 10 mg PO HS [facility] Stop: 02/26/21 20:59 Last Admin: 01/27/21 19:33 Dose: 10 mg Documented by: Ondansetron HCl (Ondansetron Inj 2 Mg/Ml 2 Ml Vial) 4 mg IV Q6H PRN PRN Reason: Nausea Stop: 02/24/21 10:36 Polyethylene Glycol (Polyethylene (Miralax) 17 Gm Pack) 17 gm PO DAILY PRN PRN Reason: Constipation Stop: 02/24/21 10:36 Sevelamer HCl (Sevelamer Hcl 800 Mg Tablet) 1,600 mg PO TIDM [facility]IL[facility] Stop: 02/27/21 11:59 (1) Altered mental status Altered mental status type: somnolence Qualified Code(s): R40.0 - Somnolence
--- NOTE | 2021-01-28 11:03 | Electrocardiogram Report ---
Test Reason : Blood Pressure : / mmHG Vent. Rate : 066 BPM Atrial Rate : 066 BPM P-R Int : 152 ms QRS Dur : 078 ms QT Int : 442 ms P-R-T Axes : 060 049 035 degrees QTc Int : 463 ms Normal sinus rhythm Normal ECG When compared with ECG of 27-JAN-2021 09:49, Sinus rhythm has replaced Atrial fibrillation Vent. rate has decreased BY 83 BPM Confirmed by Cade Henderson ([id number]) on 01/28/2021 11:02:35 AM Referred By: REFERRED SELF Confirmed By:Cade Henderson
--- NOTE | 2021-01-28 12:18 | Psychiatric Consultation ---
Date of Consultation January 28, 2021 Impression / Recommendations Impression 70 yo woman with multiple medical conditions including ESRD on dialysis, CAD, and CHF who presented for medical admission after being found with AMS after using a vape pen of marijuana and taking two of her decaesed 's old opioid pills. Psychiatry was consulted by Dr. Rangel to evaluate for depression and potential polypharmacy. Not consistent with suicide attempt, sounds like historical events wherein she takes a few opioid pills from her 's old prescriptions when she experiences strong emotions to cope. Adamantly denies any current SI and lists many reasons to live along with bright affect. She doesn't show insight into this problematic behavior of misusing opioids but based on infrequency of these events she also doesn't clearly meet opioid use disorder criteria nor do I think she is need of substance use treatment at this time though she could certainly be encouraged to engage with NA if she found this helpful. She shows insight about the problem with having opioids in the home as well as other old medications and is agreeable to the recommendation that her son be contacted to remove these from her home (ideally bring them to hospital where they can be safely disposed of). If there is concern that she would get access to other opioids then could consider narcan script be provided. She also declined offers for therapy referral as she feels she is well supported. She does not meet criteria for major depressive disorder though does find her sertraline and buspar helpful for depression and anxiety. Agree with stopping belsomra given high risks in elderly population, risks of interactions with other medications and potential for abuse/misuse. Could offer mirtazapine instead for insomnia if this perists. 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 Psychiatry was consulted by Dr. Rangel to evaluate for depression and potential polypharmacy. Chief Complaint "I have too much to live for". History of Present Illness 70 yo woman with multiple medical conditions including ESRD on dialysis, CAD, and CHF who presented for medical admission after being found with AMS after using a vape pen of marijuana and taking two of her 's old opioid pills. She reports after having a fight with her step-daughter, who wa nted an old gun from her father that Mimi had already given to another relative, she felt overwhelmed and decided to use a vape pen with presley and then impulsively took two opioid pills. She states her intent was "I thought it would make me feel better" but instead she developed AMS and her son found her. She adamantly denies this was a suicide attempt, denies any significant depression symptoms (does note some trouble with insomnia), and declines offers for any additional outpatient supports. She finds her medications-sertraline and buspar helpful without side effects. Discussed that she used remeron in the past for sleep but she couldn't recall this. She denied any past episodes of misusing opioids though per chart review this has occurred in the past. Discussed that these medications should be removed from the home and she agreed with this and we discussed how we to reduce impulsive decisions when she feels overwhelmed or upset. No guns in the home. Further history per psych liason note on 01/27: "Rounded on patient, she presented pleasant, cooperative, mood lability(tearful vs singing) with disorganized thought process. She denies suicidal ideation, plan or intent. She denies A/V hallucinations or delusions. Patient is noted to be confused related to cause for this admission. She does display paranoia regarding her step-daughter Veronica, believing that she is looking through her medical records and accusing Mimi of "killing Arnaldo"(Arnaldo is patient's recently ). Patient had difficulty recalling any psych medications she is taking and initially denied any substance use. Patient called her son Ezekiel, while this liaison was present and endorsed taking two of Arnaldo's oxycodone in addition to vaping a THC pen Sunday morning prior to Ezekiel finding her in the bathroom. Patient also endorsed her son Ezekiel as having a problem with alcohol and that Arnaldo used to sell his prescription of Oxycodone. Patient was willing to sign an MICHELLE for an her dialysis provider, whom she explained prescribes her Zoloft. She does endorse that Zoloft 5mg is helpful, however based on this assessment she is confused and a poor historian. " Past Psychiatric History Previous Psych History: depression, anxiety Do You Have Access To A Gun?: No History of Previous Suicide Attempt: No Allergies Allergy/AdvReac Type Severity Reaction Status Date / Time bee venom protein (honey bee) Allergy Intermediate MOUTH Verified 01/25/21 07:40 SWELLING prednisone Allergy Intermediate SWELLING Verified 01/25/21 07:40 OG HANDS, ITCHING, RASH tomato Allergy Intermediate Hives Verified 01/25/21 07:40 Penicillins Allergy Mild RASH Verified 01/25/21 07:40 rosuvastatin Allergy Mild SEVERE H/A Verified 01/25/21 07:40 trazodone AdvReac Severe Confusion Verified 01/25/21 07:40 Phguyxq-HAL-EiO Reductase AdvReac Mild EFFECTED Verified 01/25/21 07:40 Inhibitor LIVER [Outaqyt-Ubc-Uat Reductase STUDIES Inhibitor] Home Medications Medication Instructions Recorded Confirmed Type albuterol sulfate 90 mcg/actuation 2 puff INHALATION QID PRN 02/18/18 01/25/21 History breath activated powder inhaler (ProAir RespiClick) aspirin 81 mg tablet,delayed 81 mg PO QAM 02/18/18 01/25/21 History release (Aspirin Low Dose) azelastine 205.5 mcg (0.15 %) 1 spray INTRANASAL QAM 02/18/18 01/25/21 History nasal spray clopidogrel 75 mg tablet (Plavix) 75 mg PO QAM 02/18/18 01/25/21 History fluticasone propionate 50 1 spray INTRANASAL DAILY PRN 02/18/18 01/25/21 History mcg/actuation nasal spray,suspension (Flonase Allergy Relief) levothyroxine 25 mcg tablet 25 mcg PO QAM 02/18/18 01/25/21 History montelukast 10 mg tablet 10 mg PO HS 02/18/18 01/25/21 History (Singulair) sertraline 100 mg tablet (Zoloft) 150 mg PO QAM 02/18/18 01/25/21 History sevelamer carbonate 800 mg tablet 1,600 mg PO TIDM 03/26/19 01/25/21 History (Renvela) suvorexant 20 mg tablet (Belsomra) 20 mg PO HS 03/26/19 01/25/21 History amlodipine 10 mg tablet (Norvasc) 10 mg PO QAM 03/23/20 01/25/21 History hydralazine 25 mg tablet 50 mg PO QPM 03/23/20 01/25/21 History linagliptin 5 mg tablet (Tradjenta) 5 mg PO QAM 03/23/20 01/25/21 History nitroglycerin 0.4 mg sublingual 0.4 mg SUBLINGUAL UD PRN 03/23/20 01/25/21 History tablet (Nitrostat) furosemide 40 mg tablet 40 mg PO QAM 01/07/21 01/25/21 History levocetirizine 5 mg tablet (Xyzal) 5 mg PO PM 01/07/21 01/25/21 History oxycodone-acetaminophen 5 mg-325 1 tab PO Q8H PRN #10 tab 01/09/21 01/25/21 Rx mg tablet (Percocet) ammonium lactate 12 % topical cream 1 applic TOPICAL DAILY PRN 01/25/21 01/25/21 History buspirone 5 mg tablet 5 mg PO BID 01/25/21 01/25/21 History cholecalciferol (vitamin D3) 25 25 mcg PO DAILY 01/25/21 01/25/21 History mcg (1,000 unit) capsule (Vitamin D3) cyclobenzaprine 5 mg tablet 5 mg PO UD 01/25/21 01/25/21 History epinephrine 0.3 mg/0.3 mL 0.3 mg IM Q4H PRN 01/25/21 01/25/21 History injection, auto-injector fluticasone furoate 100 1 inh INHALATION BID 01/25/21 01/25/21 History mcg-vilanterol 25 mcg/dose inhalation powder (Breo Ellipta) ipratropium 0.5 mg-albuterol 3 mg 3 ml INHALATION Q4H PRN 01/25/21 01/25/21 History (2.5 mg base)/3 mL nebulization soln ondansetron HCl 8 mg tablet 8 mg PO TID PRN 01/25/21 01/25/21 History potassium gluconate 600 mg (99 mg) 600 mg PO DAILY 01/25/21 01/25/21 History tablet Substance Abuse History uses THC, concern for misusing opioids in the past when available to her by taking her husbands medication. Personal History Born In: [place], [place] Beliefs That Will Affect Care: None Patient History Medical History Anemia Anxiety Asthma Uses albuterol daily. Atrial fibrillation FOLLOWED BY DR. CARROLL AV fistula Depression Diabetes mellitus, type 2 oral med End stage renal disease receiving hemodiaylsis Sunday//Saturdays in [place]. Follow[place] Dr. Ramirez ([place], [place]). Endometriosis stage 4 GERD (gastroesophageal reflux disease) Hyperlipidemia Hypertension no medications currently - experiencing hypotension Hypothyroidism Kidney failure STAGE 4 NO DIALYSIS Migraine Myocardial Infarction 2008 Osteoarthritis Stroke X 2 2013 Surgical History History of abdominal surgery UMBILICAL MESH REMOVED (NECROTIC) History of adenoidectomy History of appendectomy History of martha hole surgery 2014 AFTER CVA TO "REMOVED FLUID" History of cardiac cath 2007 AT [facility] History of cataract surgery RT/LEFT History of section X 3 History of cholecystectomy History of colonoscopy History of coronary artery bypass graft 2008 3 [facility] AT [place] History of esophagogastroduodenoscopy (EGD) History of herniorrhaphy X 3 REPAIRS History of surgery LEFT FOOT/ANKLE FX REPAIR S/P FALL (HARDWARE) History of tonsillectomy History of tooth extraction History of total abdominal hysterectomy and bilateral salpingo-oophorectomy History of total knee replacement LEFT Hx of hand surgery LEFT HAND SURGERY "TOOK BONES OUT" S/P arteriovenous (AV) fistula creation Left arm S/P panniculectomy Family History Brother Family history of diabetes mellitus Coronary heart disease Mother Family history of diabetes mellitus Other No family history of adverse response to anesthesia Social History Smoking Status: Unknown if ever smoked Tobacco Type: Cigarettes Cigarettes Per Day: 1; Second Hand Exposure: Yes; Hx Alcohol Use: No Hx Substance Use: Yes Last Used Substance: Hours (ago) Substance Use Type Other:: unable to respond Preferred Language: Citizen [place] Communication Ability: Unable Visual Impairment: No Limitations 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 Beliefs That Will Affect Care: None Current Living Situation: Alone Other Information That Helps Us Care for You: No Assistive Devices: Walker Physical Exam Psychiatric: Orientation: alert, oriented to person, oriented to place and oriented to time (knew Oct but not date () and not year (2012)) Apperance: appropriately dressed and appropriately groomed Eye Contact: good eye contact Motor Behavior: no abnormal motor movements Speech: normal rate/rhythm/volume of speech Affect: euthymic affect and + tearful affect (appropriately tearful when discussing of her and son ) Mood: no depressed mood and no anxious mood Thought Process: goal directed thought process Thought Content: reality based without delusions Suicidal Thoughts: denies suicidal thoughts Homicidal Thoughts: denies homicidal thoughts Hallucinations: no auditory hallucinations and no visual hallucinations Cognition: recent memory grossly intact, remote memory grossly intact, attention grossly intact and language grossly intact Estimated Intelligence: consistent with education level Insight: + fair insight Judgement: + fair judgement Vital Signs (Past 24 Hours): Last Vital Signs Temp 36.6 C 01/28/21 09:09 Pulse 65 01/28/21 11:20 Resp 16 01/28/21 08:34 BP 179/83 H 01/28/21 11:20 Pulse Ox 96 01/28/21 08:34 Review of Systems All systems reviewed & are unremarkable except as noted in HPI & below Results & Data (PSY) Medications Administered Amlodipine Besylate (Amlodipine Besylate 5 Mg Tab) 10 mg PO [facility] Stop: 02/26/21 18:59 Last Admin: 01/28/21 08:24 Dose: 10 mg Documented by: [id number] Admin: 01/27/21 19:31 Dose: 10 mg Documented by: [id number] Aspirin (Aspirin 81 Mg Ectab) [facility] [place] Stop: 02/26/21 09:59 Last Admin: 01/28/21 08:24 Dose: 81 mg Documented by: [id number] Admin: 01/27/21 11:07 Dose: 81 mg Documented by: [id number] Fluticasone/Vilanterol (Fluticasone/Vilanterol 100/25mcg 14 Puffs/Inhaler) 1 puffs INH BID SILVIA Stop: 02/26/21 20:59 Last Admin: 01/28/21 08:25 Dose: 1 puffs Documented by: [id number] Admin: 01/27/21 19:32 Dose: 1 puffs Documented by: [id number] Ceftriaxone Sodium 1,000 mg/ (Dextrose) 50 mls @ 100 mls/hr IV Q24H [facility]; Protocol Stop: 01/30/21 11:59 Last Infusion: 01/27/21 12:30 Dose: 0 mls/hr Documented by: [id number] Admin: 01/27/21 12:00 Dose: 100 mls/hr Documented by: [id number] Infusion: 01/26/21 13:49 Dose: 0 mls/hr Documented by: [id number] Admin: 01/26/21 13:04 Dose: 100 mls/hr Documented by: [id number] Infusion: 01/25/21 14:23 Dose: 0 mls/hr Documented by: [id number] Admin: 01/25/21 13:40 Dose: 100 mls/hr Documented by: [id number] Heparin Sodium/Dextrose (Heparin Sodium/Dextrose) 25,000 units in 500 mls @ 21 mls/hr IV .[id number] [facility]; Protocol Stop: 02/26/21 10:14 Last Admin: 01/28/21 10:45 Dose: 1,050 units/hr, 21 mls/hr Documented by: [id number] Cosigned by: [id number] Titration: 01/28/21 10:45 Dose: 1,050 units/hr, 21 mls/hr Documented by: [id number] Cosigned by: [id number] Admin: 01/27/21 12:04 Dose: 1,050 units/hr, 21 mls/hr Documented by: [id number] Cosigned by: [id number] Insulin Aspart (Insulin Aspart 100 Units/Ml 3 Ml Pen) 0 units SC ACHS [facility] Stop: 02/24/21 11:29 Last Admin: 01/28/21 08:24 Dose: 4 units Documented by: [id number] Cosigned by: [id number] Admin: 01/27/21 21:08 Dose: Not Given Documented by: [id number] Cosigned by: [id number] Admin: 01/27/21 16:52 Dose: Not Given Documented by: [id number] Admin: 01/27/21 12:04 Dose: Not Given Documented by: [id number] Admin: 01/27/21 08:56 Dose: 1 units Documented by: [id number] Cosigned by: [id number] Admin: 01/26/21 19:10 Dose: Not Given Documented by: [id number] Admin: 01/26/21 19:08 Dose: Not Given Documented by: [id number] Admin: 01/26/21 12:57 Dose: Not Given Documented by: [id number] Admin: 01/26/21 08:06 Dose: 1 units Documented by: [id number] Cosigned by: [id number] Admin: 01/25/21 21:32 Dose: Not Given Documented by: [id number] Cosigned by: [id number] Admin: 01/25/21 17:25 Dose: Not Given Documented by: [id number] Admin: 01/25/21 12:25 Dose: Not Given Documented by: [id number] Insulin Glargine (Insulin Glargine Solostar 100 Units/Ml 3 Ml Pen) 0 - 8 units SC BID [facility] Stop: 02/24/21 10:36 Last Admin: 01/28/21 08:25 Dose: 4 units Documented by: [id number] Cosigned by: [id number] Admin: 01/27/21 21:07 Dose: 4 units Documented by: [id number] Cosigned by: [id number] Admin: 01/27/21 08:57 Dose: 4 units Documented by: [id number] Cosigned by: [id number] Admin: 01/26/21 19:11 Dose: Not Given Documented by: [id number] Admin: 01/26/21 08:06 Dose: 4 units Documented by: [id number] Cosigned by: [id number] Admin: 01/25/21 22:15 Dose: Not Given Documented by: [id number] Admin: 01/25/21 12:24 Dose: Not Given Documented by: [id number] Levothyroxine Sodium (Levothyroxine Sodium 25 Mcg Tablet) 25 mcg PO DAILYBB [facility] Stop: 02/26/21 09:59 Last Admin: 01/28/21 05:25 Dose: 25 mcg Documented by: [id number] Admin: 01/27/21 11:07 Dose: 25 mcg Documented by: [id number] Melatonin (Melatonin 3 Mg Tab) 3 mg PO HS PRN PRN Reason: Sleep Stop: 02/26/21 21:25 Last Admin: 01/27/21 21:43 Dose: 3 mg Documented by: [id number] Metoprolol Tartrate (Metoprolol Tartrate 1 Mg/Ml Vial) 5 mg IV Q6 PRN PRN Reason: Tachycardia Stop: 02/26/21 11:59 Last Admin: 01/27/21 09:53 Dose: 5 mg Documented by: [id number] Metoprolol Tartrate (Metoprolol Tartrate 25 Mg Tab) 25 mg PO BID [facility] Stop: 02/26/21 09:59 Last Admin: 01/28/21 08:24 Dose: 25 mg Documented by: [id number] Admin: 01/27/21 19:32 Dose: 25 mg Documented by: [id number] Admin: 01/27/21 11:06 Dose: 25 mg Documented by: [id number] Montelukast Sodium (Montelukast Sodium 10 Mg Tablet) 10 mg PO HS [facility] Stop: 02/26/21 20:59 Last Admin: 01/27/21 19:33 Dose: 10 mg Documented by: [id number] Coding Level of Care Code 43213 Inpt Consult Level 2 Diagnoses Opiate use F11.90 Depression F32.9 Anxiety F41.9 Insomnia G47.00 Time Spent (min) 35
--- NOTE | 2021-01-28 12:25 | Dialysis Progress Note ---
Date of Service January 28, 2021 Assessment & Plan Admission and Anticipated Discharge Date Admission Date: January 25, 2021 Subjective Subjective Seen in dialysis unit. She is not confused and back to her baseline. had Afibb with RVR earlier labs reviewed. Physical Exam: Constitutional: obtunded Respiratory: lungs clear to auscultation, no wheeze, rales, rhonchi. Normal insp/exp effort, no accessory muscle use Cardiovascular: , RRR, no murmur, no edema Vessels: no JVD or carotid bruit Abdomen: normal bowel sounds, soft, nontender, no hepatosplenomegaly Musculoskeletal: no cyanosis or clubbing, extremities AROM x 4, myoclonic tonic clonic jerking, strength unable to be assessed Lymphatic: no cervical or axillary lymphadenopathy : incontinent A/p--70/F admitted with encephalopathy likely Polysubstance abuse ( opioids, marijuana, metabolic encephalopathy). ESRD on HD --TTS. Now also has Afibb with RVR ESRD---etiology of encephalopathy Polysubstance abuse ( opioids, marijuana, metabolic encephalopathy)Now back to baseline mental status. Dialysis today-3hrs 2k and take 1-1.5 kilo off. also new Afibb and RVR and getting started on Coumadin. Results & Data ([facility]) Vital Signs (Past 12 Hours) Vital Signs Temp Pulse Pulse Resp BP BP BP 01/28/21 12:00 65 145/64 H 01/28/21 11:40 63 160/76 H 01/28/21 11:20 65 179/83 H 01/28/21 11:00 66 175/90 H 01/28/21 10:39 58 L 144/74 H 01/28/21 10:20 76 172/58 H 01/28/21 10:00 61 146/78 H 01/28/21 09:40 60 152/78 H 01/28/21 09:14 68 176/80 H 01/28/21 09:09 36.6 C 68 01/28/21 08:34 36.6 C 70 16 192/76 H 01/28/21 02:53 37.0 C 64 18 157/73 H 01/28/21 01:48 174/89 H Pulse Ox 01/28/21 12:00 01/28/21 11:40 01/28/21 11:20 01/28/21 11:00 01/28/21 10:39 01/28/21 10:20 01/28/21 10:00 01/28/21 09:40 01/28/21 09:14 01/28/21 09:09 01/28/21 08:34 96 01/28/21 02:53 94 01/28/21 01:48
[2021-01-28] MEDS: SEVELAMER HCL 800 MG TABLET PO SCH ×2 (13:26→16:43)
[2021-01-28] MEDS: cefTRIAXone SODIUM 1,000 MG in DEXTROSE 5% 50 ML IV SCH (13:27)
[2021-01-28] MEDS: SERTRALINE HCL 50 MG TABLET PO SCH (14:55)
[2021-01-28] MEDS: WARFARIN SOD 2.5 MG TAB PO SCH (14:56)
--- NOTE | 2021-01-28 17:56 | Hospitalist Progress Note ---
Date of Service January 28, 2021 Assessment & Plan (1) Altered mental status: Plan: Patient is a 70 yr female who has a significant past medical history of CAD status post CABG, ESRD T//, T2DM, HTN, HLD, history of marijuana use, hypothyroidism, history of A. fib who presents to ED 2/2 to AMS and unresponsiveness. Limited hx given obtundation, son provided minimal history, pt lives alone. Upon my evaluation pt had agonal breathing and bradycardia. There was concern of possible polypharmacy or drug use given known oxycodone prescription and marijuana use; therefore IV narcan was administered.Pt aroused immediately and developed seizure like activity vs myoclonic jerking of all extremities, pt would even occasionally mumble words that were not comprehensible. Acute metabolic encephalopathy Seizure like activity vs Myoclonus Vs polypharmacy/Abuse ; UTI; in setting of ESRD Recent hospitalization 01/07- 2/2 to concern for CVA and myoclonus - felt 2/2 to consistent Remeron use/possible opiates - Remeron was discontinued, unknown if still taking CT head: negative MRI Brain:Mild motion artifact. No definite acute intracranial abnormality. seizure precautions, neuro checks --EEG:This is an abnormal routine EEG in a patient with altered mentation due to generalized background slowing suggestive of a nonspecific encephalopathy. No epileptiform activity is recorded. Toxicology Screen: Positive for opiates, marijuana Appreciate Neurology Input aspiration precautions No antiepileptics recommended per Neuro No recurrence of myoclonic jerks Mental status back to baseline Patient believes mental status changes likely secondary to marijuana use She admits to taking 2 tabes of Oxycodone A. fib RVR Spontaneously converted to sinus after IV Lopressor Continue metoprolol 25 mg BID IV Lopressor as needed Continue IV heparin Appreciate Cardiology Input .On Coumadin Monitor INR ESRD HD t// Appreciate nephrology input UTI Urine culture growing E.Coli Blood cultures no growth to date Continue Rocephin DM II last a1C 6.4 01/08/21 hold tradjenta lantus/novolog per protocol HTN Continue amlodipine, hydralazine Resume furosemide as able CAD hx of CABG Continue Asa Plavix discontinued as started on Coumadin for anticoagulation Known Opiate use/possible opiate abuse +Marijuana, Opiates on drug screen Appreciate Psychiatry Input Hypothyroidism Continue levothyroxine Depression/Grief Recently lost her Continue home meds Appreciate psychiatry input Insomnia Is on Belsomra Currently held Plan to DC upon discharge given risk for polypharmacy DVT Px: IV Heparin Coumadin Code Status FULL CODE Admission and Anticipated Discharge Date Admission Date: January 25, 2021 Subjective Patient is seen and examined at bedside Had dialysis earlier today Mental status back to baseline Offers no complaints Discussed with psychiatry today BP is high today Denies chest pain, shortness of breath, dizziness, nausea, abdominal pain Review of Systems Review of Systems: All systems reviewed & are unremarkable except as noted in Subjective Physical Exam Physical Exam: Physical Exam: Vitals signs as noted above General Appearance:Moderately built and nourished, no apparent distress Head: normocephalic, Atraumatic Eyes: normal inspection Neck: supple, Trachea midline Respiratory/Chest: Normal breath sounds, CTA Cardiovascular:S1, S2, + murmur Abdomen/GI:Soft, Non tender, Bowel sounds present Extremities/Musculoskeletal:normal inspection, no edema Neurologic/Psych: Alert awake, no focal deficits Skin: normal color, warm Results & Data Results & Data ([facility]) Vital Signs (Past 12 Hours) Vital Signs Temp Pulse Pulse Pulse Resp BP BP 01/28/21 15:22 36.8 C 71 18 01/28/21 13:15 68 14 177/74 H 01/28/21 12:56 36.6 C 62 162/73 H 01/28/21 12:20 74 141/69 H 01/28/21 12:00 65 145/64 H 01/28/21 11:40 63 160/76 H 01/28/21 11:20 65 179/83 H 01/28/21 11:00 66 175/90 H 01/28/21 10:39 58 L 144/74 H 01/28/21 10:20 76 172/58 H 01/28/21 10:00 61 146/78 H 01/28/21 09:40 60 152/78 H 01/28/21 09:14 68 176/80 H 01/28/21 09:09 36.6 C 68 01/28/21 08:34 36.6 C 70 16 BP Pulse Ox 01/28/21 15:22 185/78 H 97 01/28/21 13:15 97 01/28/21 12:56 01/28/21 12:20 01/28/21 12:00 01/28/21 11:40 10/22/21 11:20 01/28/21 11:00 01/28/21 10:39 01/28/21 10:20 01/28/21 10:00 01/28/21 09:40 01/28/21 09:14 01/28/21 09:09 01/28/21 08:34 192/76 H 96 Laboratory Results Short CBC 01/28/21 Range/Units 08:14 WBC 7.22 (4.8-10.8) K/uL Hgb 12.0 (12.0-16.0) g/dL Hct 36.2 L (37-47) % Plt Count 250 (130-400) K/uL BMP 01/28/21 08:14 Sodium 134 L Potassium 3.8 Chloride 97 L Carbon Dioxide 23 BUN 54 H Creatinine 4.57 H* D Glucose 179 H Calcium 8.5 (1) Altered mental status Altered mental status type: somnolence Qualified Code(s): R40.0 - Somnolence
[2021-01-28] MEDS: busPIRone 5 MG TAB PO SCH (20:08)
[2021-01-28] MEDS: MONTELUKAST SODIUM 10 MG TABLET PO SCH (20:08)
[2021-01-28] MEDS ORDERED: hydrALAZINE TAB 50 MG TAB PO SCH (21:00)
[2021-01-28] MEDS ORDERED: hydrALAZINE TAB 50 MG TAB PO STA (23:24)
[2021-01-28] MEDS ORDERED: ACETAMINOPHEN 1,000 MG/100 ML VIAL IV STA (23:26)
[2021-01-29] MEDS: MIRTAZAPINE TAB 15 MG TAB PO PRN ×2 (00:27→20:40)
[2021-01-29] MEDS: HEPARIN SODIUM/DEXTROSE 25,000 UNITS/500 ML BAG IV SCH ×2 (07:08→23:38)
[2021-01-29] MEDS: LEVOTHYROXINE SODIUM 25 MCG TABLET PO SCH (07:09)
[2021-01-29] MEDS: SERTRALINE HCL 50 MG TABLET PO SCH (07:52)
[2021-01-29] MEDS: METOPROLOL TARTRATE 25 MG TAB PO SCH (07:52)
[2021-01-29] MEDS: SEVELAMER HCL 800 MG TABLET PO SCH ×3 (07:53→17:14)
[2021-01-29] MEDS: FLUTICASONE/VILANTEROL 100/25MCG 14 PUFFS/INHALER INH SCH ×2 (07:53→20:41)
[2021-01-29] MEDS: hydrALAZINE TAB 50 MG TAB PO SCH ×2 (07:53→20:40)
[2021-01-29] MEDS: ASPIRIN 81 MG ECTAB PO SCH (07:53)
[2021-01-29] MEDS: amLODIPine BESYLATE 5 MG TAB PO SCH (07:53)
[2021-01-29] MEDS: busPIRone 5 MG TAB PO SCH ×2 (07:53→20:40)
[2021-01-29] MEDS: INSULIN ASPART 100 UNITS/ML 3 ML PEN SC SCH ×4 (07:55→20:41)
[2021-01-29] MEDS: INSULIN GLARGINE SOLOSTAR 100 UNITS/ML 3 ML PEN SC SCH ×2 (07:57→20:41)
[2021-01-29 08:08] LABS: Partial Thromboplastin Ratio 1.9; Prothrombin Time 10.3 Seconds (9.0-12.0)
[2021-01-29 08:15] LABS: BUN Creatinine Ratio 9.5 (10-20); Est GFR (African American) 17.3 ml/min; Est GFR (Non-African American) 14.9 ml/min; Magnesium 2.3 mg/dl (1.8-2.4); Potassium 3.5 mmol/L (3.5-5.1)
[2021-01-29 08:19] LABS: Partial Thromboplastin Time 49.9 Seconds (21.0-31.0)
[2021-01-29] MEDS: cefTRIAXone SODIUM 1,000 MG in DEXTROSE 5% 50 ML IV SCH (11:37)
[2021-01-29] MEDS: CHOLECALCIFEROL 1,000 UNITS 25 MCG TAB PO SCH (11:37)
--- NOTE | 2021-01-29 12:00 | Cardiology Progress Note ---
Date of Service January 29, 2021 Assessment & Plan (1) Atrial fibrillation with RVR: (2) Altered mental status: (3) History of CVA (cerebrovascular accident): (4) History of coronary artery disease: (5) HTN (hypertension): Plan: Patient admitted for altered mental status changes/acute metabolic encephalopathy due to polysubstance abuse Developed new onset atrial fibrillation with RVR. Converted to NSR on IV metoprolol. Started on metoprolol tartrate 25 mg BID. 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 Apparently she also has a chart history of CVA in 2014. CHADSVASC score of 7 correlating with 11.2% stroke risk per year based on history and [employer] anticoagulation would be recommended given recent episode of PAF. Continue current medications. Recommend following up with MTM clinic at [facility] as an outpatient for INR management. Admission and Anticipated Discharge Date Admission Date: January 25, 2021 Subjective Patient seen and examined, chart reviewed and case discussed with nursing. Currently states that she feels well. Denies any cardiac complaints of chest pain, shortness of breath, palpitations, lightheadedness, dizziness or syncope. Telemetry reviewed: Normal sinus rhythm without arrhythmia. Review of Systems Review of Systems: All systems reviewed & are unremarkable except as noted in HPI & below Physical Exam Physical Exam: General: Awake, alert and oriented x 3. No acute distress. HEENT: Normocephalic, atraumatic. Pupils equal, round and reactive to light and accommodation. Extraocular muscles are intact. Anicteric sclera. Moist mucous membranes. Neck: No JVD. No bruit. Cardiovascular: Regular. Positive S-4. Normal S-1 and S-2. No S-3. 3/6 holosystolic ejection murmur, 5th intercostal space, mid-clavicular line without radiation. No rubs. Pulmonary: Clear to auscultation bilaterally. No rales, rhonchi, or wheezing. Abdomen: Bowel sounds x 4, soft. No rebound, guarding or tenderness. No organomegaly. Extremities: No clubbing, cyanosis or edema. +2 pedal pulses bilaterally. Skin: Warm and dry. Results & Data ([facility]) Vital Signs (Past 12 Hours) Vital Signs Temp Pulse Pulse Pulse Resp BP BP 01/29/21 11:46 36.8 C 59 L 18 170/63 H 01/29/21 10:16 151/81 H 01/29/21 10:13 140/65 01/29/21 07:49 36.8 C 87 200/76 H 01/29/21 07:32 73 01/29/21 04:00 36.7 C 68 20 157/44 H 01/29/21 03:35 36.8 C 73 19 172/74 H Pulse Ox 01/29/21 11:46 96 01/29/21 10:16 01/29/21 10:13 01/29/21 07:49 94 01/29/21 07:32 01/29/21 04:00 96 01/29/21 03:35 96 (1) Altered mental status Altered mental status type: somnolence Qualified Code(s): R40.0 - Somnolence
[2021-01-29] MEDS: LACTOBACILLUS ACIDOPHILUS 1 GM PACK PO SCH ×2 (13:10→17:13)
--- NOTE | 2021-01-29 14:11 | Electrocardiogram Report ---
Test Reason : Blood Pressure : / mmHG Vent. Rate : 074 BPM Atrial Rate : 074 BPM P-R Int : 152 ms QRS Dur : 076 ms QT Int : 434 ms P-R-T Axes : 054 039 028 degrees QTc Int : 481 ms Normal sinus rhythm Normal ECG When compared with ECG of 28-JAN-2021 06:12, No significant change was found Confirmed by Luis Carranza ([id number]) on 01/29/2021 2:11:21 PM Referred By: REFERRED SELF Confirmed By:Luis Carranza
[2021-01-29] MEDS ORDERED: LOPERAMIDE HCL 2 MG CAP PO PRN (16:08)
--- NOTE | 2021-01-29 16:16 | Hospitalist Progress Note ---
Date of Service January 29, 2021 Assessment & Plan (1) Altered mental status: Plan: Patient is a 70 yr female who has a significant past medical history of CAD status post CABG, ESRD T//, T2DM, HTN, HLD, history of marijuana use, hypothyroidism, history of A. fib who presents to ED 2/2 to AMS and unresponsiveness. Limited hx given obtundation, son provided minimal history, pt lives alone. Upon my evaluation pt had agonal breathing and bradycardia. There was concern of possible polypharmacy or drug use given known oxycodone prescription and marijuana use; therefore IV narcan was administered.Pt aroused immediately and developed seizure like activity vs myoclonic jerking of all extremities, pt would even occasionally mumble words that were not comprehensible. Acute metabolic encephalopathy Seizure like activity vs Myoclonus Vs polypharmacy/Abuse ; UTI; in setting of ESRD Recent hospitalization 01/07- 2/2 to concern for CVA and myoclonus - felt 2/2 to consistent Remeron use/possible opiates - Remeron was discontinued, unknown if still taking CT head: negative MRI Brain:Mild motion artifact. No definite acute intracranial abnormality. seizure precautions, neuro checks --EEG:This is an abnormal routine EEG in a patient with altered mentation due to generalized background slowing suggestive of a nonspecific encephalopathy. No epileptiform activity is recorded. Toxicology Screen: Positive for opiates, marijuana Appreciate Neurology Input aspiration precautions No antiepileptics recommended per Neuro No recurrence of myoclonic jerks Mental status back to baseline Patient believes mental status changes likely secondary to marijuana use She admits to taking 2 tabs of Oxycodone along with Marijuana Resolved A. fib RVR Spontaneously converted to sinus after IV Lopressor Continue metoprolol 25 mg BID IV Lopressor as needed Continue IV heparin Appreciate Cardiology Input Continue Coumadin Monitor INR:1.0 Diarrhea Stool for C diff negative Imodium PRN ESRD HD t// Appreciate nephrology input UTI Urine culture growing E.Coli Blood cultures no growth to date Completed 5 day course of Rocephin DM II last a1C 6.4 01/08/21 hold tradjenta lantus/novolog per protocol HTN Continue amlodipine, hydralazine Resume furosemide as able Hydralazine increased to 50 mg twice daily for better blood pressure control Monitor CAD hx of CABG Continue Asa Plavix discontinued as started on Coumadin for anticoagulation Known Opiate use/possible opiate abuse +Marijuana, Opiates on drug screen Appreciate Psychiatry Input Counseled to quit Hypothyroidism Continue levothyroxine Depression/Grief Recently lost her Continue home meds Appreciate psychiatry input Insomnia Was on Belsomra Currently held Plan to DC upon discharge given risk for polypharmacy Consider addition of mirtazapine 15mg qhs for insomnia if needed DVT Px: IV Heparin Coumadin Code Status FULL CODE Admission and Anticipated Discharge Date Admission Date: January 25, 2021 Subjective Patient is seen and examined at bedside States having diarrhea today Reports mild abdominal soreness Denies any chest pain, shortness of breath, dizziness, nausea Stool for C. difficile is negative Review of Systems Review of Systems: All systems reviewed & are unremarkable except as noted in Subjective Physical Exam Physical Exam: Physical Exam: Vitals signs as noted above General Appearance:Moderately built and nourished, no apparent distress Head: normocephalic, Atraumatic Eyes: normal inspection Neck: supple, Trachea midline Respiratory/Chest: Normal breath sounds, CTA Cardiovascular:S1, S2, + murmur Abdomen/GI:Soft, Non tender, Bowel sounds present Extremities/Musculoskeletal:normal inspection, no edema Neurologic/Psych: Alert awake, no focal deficits Skin: normal color, warm Results & Data Results & Data ([facility]) Vital Signs (Past 12 Hours) Vital Signs Temp Pulse Pulse Pulse Resp BP BP 01/29/21 15:54 36.8 C 66 18 187/78 H 01/29/21 11:46 36.8 C 59 L 18 170/63 H 01/29/21 10:16 151/81 H 01/29/21 10:13 140/65 01/29/21 07:49 36.8 C 87 200/76 H 01/29/21 07:32 73 Pulse Ox 01/29/21 15:54 95 01/29/21 11:46 96 01/29/21 10:16 01/29/21 10:13 01/29/21 07:49 94 01/29/21 07:32 Laboratory Results BMP 01/29/21 07:00 Sodium 135 L Potassium 3.5 Chloride 99 Carbon Dioxide 24 BUN 29 H Creatinine 3.00 H D Glucose 134 H Calcium 9.0 (1) Altered mental status Altered mental status type: somnolence Qualified Code(s): R40.0 - Somnolence
[2021-01-29] MEDS: WARFARIN SOD 2.5 MG TAB PO SCH (17:11)
[2021-01-29] MEDS: MELATONIN 3 MG TAB PO PRN (20:40)
[2021-01-29] MEDS: MONTELUKAST SODIUM 10 MG TABLET PO SCH (20:40)
[2021-01-29] MEDS ORDERED: ACETAMINOPHEN 1000 MG/100 ML IV IV ONE (21:35)
[2021-01-30] MEDS: LEVOTHYROXINE SODIUM 25 MCG TABLET PO SCH (04:55)
[2021-01-30] MEDS ORDERED: MIRTAZAPINE TAB 15 MG TAB PO PRN (06:46)
[2021-01-30] MEDS ORDERED: ACETAMINOPHEN 1000 MG/100 ML IV IV PRN (06:47)
[2021-01-30 07:35] LABS: Prothrombin Time 10.5 Seconds (9.0-12.0)
[2021-01-30 07:53] LABS: BUN Creatinine Ratio 9.4 (10-20); Calcium 8.7 mg/dl (8.5-10.1); Creatinine Clr Calc Pharmacy 13.4 ml/min; Est GFR (African American) 13.9 ml/min; Potassium 3.6 mmol/L (3.5-5.1)
[2021-01-30] MEDS: FLUTICASONE/VILANTEROL 100/25MCG 14 PUFFS/INHALER INH SCH ×2 (08:21→21:20)
[2021-01-30] MEDS: LACTOBACILLUS ACIDOPHILUS 1 GM PACK PO SCH ×3 (08:21→16:58)
[2021-01-30] MEDS: amLODIPine BESYLATE 5 MG TAB PO SCH (08:22)
[2021-01-30] MEDS: SERTRALINE HCL 50 MG TABLET PO SCH (08:22)
[2021-01-30] MEDS: SEVELAMER HCL 800 MG TABLET PO SCH ×3 (08:22→16:58)
[2021-01-30] MEDS: busPIRone 5 MG TAB PO SCH ×2 (08:23→21:21)
[2021-01-30] MEDS: CHOLECALCIFEROL 1,000 UNITS 25 MCG TAB PO SCH (08:23)
[2021-01-30] MEDS: INSULIN GLARGINE SOLOSTAR 100 UNITS/ML 3 ML PEN SC SCH ×2 (08:23→21:23)
[2021-01-30] MEDS: hydrALAZINE TAB 50 MG TAB PO SCH ×2 (08:23→21:21)
[2021-01-30] MEDS: ASPIRIN 81 MG ECTAB PO SCH (08:23)
[2021-01-30] MEDS: INSULIN ASPART 100 UNITS/ML 3 ML PEN SC SCH ×4 (08:25→21:22)
[2021-01-30 09:34] LABS: Partial Thromboplastin Ratio 2.1
[2021-01-30 09:42] LABS: Partial Thromboplastin Time 54.7 Seconds (21.0-31.0)
[2021-01-30] MEDS: ONDANSETRON INJ 2 MG/ML 2 ML VIAL IV PRN ×2 (09:46→17:27)
--- NOTE | 2021-01-30 11:17 | Cardiology Progress Note ---
Date of Service January 30, 2021 Assessment & Plan (1) Atrial fibrillation with RVR: (2) Altered mental status: (3) History of CVA (cerebrovascular accident): (4) History of coronary artery disease: (5) HTN (hypertension): Plan: Patient admitted for altered mental status changes/acute metabolic encephalopathy due to polysubstance abuse Developed new onset atrial fibrillation with RVR. Converted to NSR on IV metoprolol. Started on metoprolol tartrate 25 mg BID. 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 Apparently she also has a chart history of CVA in 2014. CHADSVASC score of 7 correlating with 11.2% stroke risk per year based on history and [facility]p anticoagulation would be recommended given recent episode of PAF. Continue current medications. Recommend following up with MTM clinic at [facility] as an outpatient for INR management. Admission and Anticipated Discharge Date Admission Date: January 25, 2021 Physical Exam Physical Exam: General: Awake, alert and oriented x 3. No acute distress. HEENT: Normocephalic, atraumatic. Pupils equal, round and reactive to light and accommodation. Extraocular muscles are intact. Anicteric sclera. Moist mucous membranes. Neck: No JVD. No bruit. Cardiovascular: Regular. Positive S-4. Normal S-1 and S-2. No S-3. 3/6 holosystolic ejection murmur, 5th intercostal space, mid-clavicular line without radiation. No rubs. Pulmonary: Clear to auscultation bilaterally. No rales, rhonchi, or wheezing. Abdomen: Bowel sounds x 4, soft. No rebound, guarding or tenderness. No organomegaly. Extremities: No clubbing, cyanosis or edema. +2 pedal pulses bilaterally. Skin: Warm and dry. Results & Data ([facility]) Vital Signs (Past 12 Hours) Vital Signs Temp Pulse Pulse Resp BP Pulse Ox 01/30/21 07:29 36.7 C 72 20 188/88 H 96 01/30/21 07:19 71 01/30/21 04:40 86 01/30/21 04:00 36.7 C 70 16 146/65 H 96 (1) Altered mental status Altered mental status type: somnolence Qualified Code(s): R40.0 - Somnolence
[2021-01-30] MEDS ORDERED: PROMETHAZINE HCL 6.25 MG in SODIUM CHLORIDE 0.9% 50 ML IV STA (12:34)
[2021-01-30] MEDS ORDERED: WARFARIN SOD 5 MG TAB PO SCH (16:00)
--- NOTE | 2021-01-30 16:31 | Hospitalist Progress Note ---
Date of Service January 30, 2021 Assessment & Plan (1) Altered mental status: Plan: Patient is a 70 yr female who has a significant past medical history of CAD status post CABG, ESRD T//, T2DM, HTN, HLD, history of marijuana use, hypothyroidism, history of A. fib who presents to ED 2/2 to AMS and unresponsiveness. Limited hx given obtundation, son provided minimal history, pt lives alone. Upon my evaluation pt had agonal breathing and bradycardia. There was concern of possible polypharmacy or drug use given known oxycodone prescription and marijuana use; therefore IV narcan was administered.Pt aroused immediately and developed seizure like activity vs myoclonic jerking of all extremities, pt would even occasionally mumble words that were not comprehensible. Acute metabolic encephalopathy Seizure like activity vs Myoclonus Vs polypharmacy/Abuse ; UTI; in setting of ESRD Recent hospitalization 01/07- 2/2 to concern for CVA and myoclonus - felt 2/2 to consistent Remeron use/possible opiates - Remeron was discontinued, unknown if still taking CT head: negative MRI Brain:Mild motion artifact. No definite acute intracranial abnormality. seizure precautions, neuro checks --EEG:This is an abnormal routine EEG in a patient with altered mentation due to generalized background slowing suggestive of a nonspecific encephalopathy. No epileptiform activity is recorded. Toxicology Screen: Positive for opiates, marijuana Appreciate Neurology Input aspiration precautions No antiepileptics recommended per Neuro No recurrence of myoclonic jerks Mental status back to baseline Patient believes mental status changes likely secondary to marijuana use She admits to taking 2 tabs of Oxycodone along with Marijuana Resolved A. fib RVR Spontaneously converted to sinus after IV Lopressor Continue metoprolol 25 mg BID IV Lopressor as needed Continue IV heparin Appreciate Cardiology Input Monitor INR:1.0 Increase Coumadin to 5 mg today Diarrhea Stool for C diff negative Imodium PRN Improving ESRD HD // Appreciate nephrology input UTI Urine culture growing E.Coli Blood cultures no growth to date Completed 5 day course of Rocephin DM II last a1C 6.4 01/08/21 hold tradjenta lantus/novolog per protocol HTN Continue amlodipine, hydralazine Resume furosemide as able Hydralazine increased to 50 mg twice daily for better blood pressure control Titrate medications as needed CAD hx of CABG Continue Asa Plavix discontinued as started on Coumadin for anticoagulation Known Opiate use/possible opiate abuse +Marijuana, Opiates on drug screen Appreciate Psychiatry Input Counseled to quit Hypothyroidism Continue levothyroxine Depression/Grief Recently lost her Continue home meds Appreciate psychiatry input Insomnia Was on Belsomra Currently held Plan to DC upon discharge given risk for polypharmacy Consider addition of mirtazapine 15mg qhs for insomnia if needed DVT Px: IV Heparin Coumadin Code Status FULL CODE Admission and Anticipated Discharge Date Admission Date: January 25, 2021 Subjective Patient is seen and examined at bedside States having nausea today but denies any vomiting Diarrhea seems to be resolved Denies any abdominal pain today Also denies any chest pain, shortness of breath, dizziness, nausea Review of Systems Review of Systems: All systems reviewed & are unremarkable except as noted in Subjective Physical Exam Physical Exam: Physical Exam: Vitals signs as noted above General Appearance:Moderately built and nourished, no apparent distress Head: normocephalic, Atraumatic Eyes: normal inspection Neck: supple, Trachea midline Respiratory/Chest: Normal breath sounds, CTA Cardiovascular:S1, S2, + murmur Abdomen/GI:Soft, Non tender, Bowel sounds present Extremities/Musculoskeletal:normal inspection, no edema Neurologic/Psych: Alert awake, no focal deficits Skin: normal color, warm Results & Data Results & Data ([facility]) Vital Signs (Past 12 Hours) Vital Signs Temp Pulse Pulse Resp BP Pulse Ox 01/30/21 15:05 74 01/30/21 14:46 36.6 C 71 20 169/70 H 96 01/30/21 12:25 36.9 C 69 20 182/64 H 97 01/30/21 07:29 36.7 C 72 20 188/88 H 96 01/30/21 07:19 71 01/30/21 04:40 86 Laboratory Results [facility] 01/30/21 06:57 Sodium 136 Potassium 3.6 Chloride 101 Carbon Dioxide 25 BUN 34 H Creatinine 3.58 H D Glucose 146 H Calcium 8.7 (1) Altered mental status Altered mental status type: somnolence Qualified Code(s): R40.0 - Somnolence
[2021-01-30] MEDS: PROMETHAZINE HCL 12.5 MG in SODIUM CHLORIDE 0.9% 50 ML IV PRN (20:16)
[2021-01-30] MEDS ORDERED: hydrALAZINE HCL 20 MG/ML VIAL IV ONE (20:18)
[2021-01-30] MEDS: MONTELUKAST SODIUM 10 MG TABLET PO SCH (21:22)
[2021-01-30] MEDS: ACETAMINOPHEN 325 MG TAB PO PRN (22:50)
[2021-01-30] MEDS: MELATONIN 3 MG TAB PO PRN (22:51)
[2021-01-30] MEDS: HEPARIN SODIUM/DEXTROSE 25,000 UNITS/500 ML BAG IV SCH (22:53)
[2021-01-31] MEDS ORDERED: METOPROLOL TARTRATE 25 MG TAB PO STA (00:34)
[2021-01-31 01:01] LABS: Basophils # (auto) 0.02 K/uL (0-0.2); Basophils % (auto) 0.3 %; Eosinophils # (auto) 0.02 K/uL (0-0.5); Eosinophils % (auto) 0.3 %; Hematocrit (blood only) 31.2 % (37-47); Hemoglobin 10.6 g/dL (12.0-16.0); Immature Granulocytes # (auto) 0.01 K/uL (0.00-0.02); Immature Granulocytes % (auto) 0.2 %; Lymphocytes % (auto) 21.7 %; Mean Corpuscular Hemoglobin 29.7 pg (25-34); Mean Corpuscular Volume 87.4 fL (80-100); Mean Platelet Volume 9.4 fL (7.4-10.4); Monocytes # (auto) 0.48 K/uL (0.11-0.59); Monocytes % (auto) 7.5 %; Neutrophils # (auto) 4.51 K/uL (1.4-6.5); Platelet Count 203 K/uL (130-400); RDW Coefficient of Variation 14.6 % (11.5-14.5); RDW Standard Deviation 47.4 fL (36.4-46.3); Red Blood Count 3.57 M/uL (4.2-5.4); White Blood Count 6.44 K/uL (4.8-10.8)
[2021-01-31 01:19] LABS: BUN Creatinine Ratio 9.1 (10-20); Calcium 8.7 mg/dl (8.5-10.1); Creatinine Clr Calc Pharmacy 12.5 ml/min; Est GFR (African American) 12.9 ml/min; Est GFR (Non-African American) 11.1 ml/min; Magnesium 2.3 mg/dl (1.8-2.4); Potassium 3.5 mmol/L (3.5-5.1)
[2021-01-31 01:21] LABS: Partial Thromboplastin Ratio 1.7
[2021-01-31 01:22] LABS: Partial Thromboplastin Time 45.7 Seconds (21.0-31.0)
[2021-01-31] MEDS: LEVOTHYROXINE SODIUM 25 MCG TABLET PO SCH (05:54)
--- NOTE | 2021-01-31 07:00 | CT Scan Report ---
CT SCAN OF THE BRAIN WITHOUT IV CONTRAST CLINICAL HISTORY: Headache. COMPARISON STUDY: CT of the brain dated 01/25/2021. TECHNIQUE: Unenhanced axial CT scan of the brain is performed from the vertex to the skull base. A do se lowering technique was utilized adhering to the principles of ALARA. CT DOSE: 614.27 mGy.cm FINDINGS: Brain parenchyma: There are age-related involutional changes noting mild subcortical and periventric ular microangiopathic change. There is no hemorrhage, mass effect, or evidence of acute territorial i schemia by CT criteria. Pal-white matter differentiation is preserved. No extra-axial fluid collecti on is seen. Ventricles, sulci, cisterns: Prominent secondary to involutional change. Intracranial vasculature: There is atherosclerotic calcification of the cavernous carotid and vertebr al arteries. Calvarium: Unremarkable. Sinuses and mastoids: The visualized paranasal sinuses are clear. The mastoid air cells are well pneu matized. Orbits: The bony orbits are grossly intact. There are bilateral ocular lens implants. IMPRESSION: There is no hemorrhage, mass effect, or evidence of acute territorial ischemia by CT crit khushboo. ACT 112: Negative or not required by law. Electronically signed by: Ricki Raza M.D. 01/31/2021 6:59 AM
[2021-01-31 07:31] LABS: Partial Thromboplastin Ratio 2.2
[2021-01-31 07:36] LABS: Partial Thromboplastin Time 58.5 Seconds (21.0-31.0)
[2021-01-31] MEDS: SERTRALINE HCL 50 MG TABLET PO SCH (08:41)
[2021-01-31] MEDS: amLODIPine BESYLATE 5 MG TAB PO SCH (08:41)
[2021-01-31] MEDS: LACTOBACILLUS ACIDOPHILUS 1 GM PACK PO SCH ×3 (08:41→16:55)
[2021-01-31] MEDS: ASPIRIN 81 MG ECTAB PO SCH (08:41)
[2021-01-31] MEDS: busPIRone 5 MG TAB PO SCH ×2 (08:41→20:34)
[2021-01-31] MEDS: CHOLECALCIFEROL 1,000 UNITS 25 MCG TAB PO SCH (08:41)
[2021-01-31] MEDS: hydrALAZINE TAB 50 MG TAB PO SCH ×3 (08:41→20:35)
[2021-01-31] MEDS: SEVELAMER HCL 800 MG TABLET PO SCH ×3 (08:41→16:55)
[2021-01-31] MEDS: FLUTICASONE/VILANTEROL 100/25MCG 14 PUFFS/INHALER INH SCH ×2 (08:43→20:35)
[2021-01-31] MEDS: METOPROLOL TARTRATE 25 MG TAB PO SCH ×2 (08:44→20:36)
[2021-01-31] MEDS: INSULIN ASPART 100 UNITS/ML 3 ML PEN SC SCH ×4 (08:45→20:36)
[2021-01-31] MEDS: INSULIN GLARGINE SOLOSTAR 100 UNITS/ML 3 ML PEN SC SCH ×2 (08:46→20:37)
[2021-01-31] MEDS ORDERED: SODIUM CHLORIDE 0.9% 1000ML 1,000 ML IV PRN (09:57)
--- NOTE | 2021-01-31 09:57 | Cardiology Progress Note ---
Date of Service January 31, 2021 Assessment & Plan (1) Atrial fibrillation with RVR: (2) Altered mental status: (3) History of CVA (cerebrovascular accident): (4) History of coronary artery disease: (5) HTN (hypertension): Plan: The patient is maintaining sinus rhythm. I agree with transitioning her to warfarin. Admission and Anticipated Discharge Date Admission Date: January 25, 2021 Subjective The patient is alert and no complaints. Review of Systems Review of Systems: Review of Systems: See HPI for pertinent positives. All other 10 point review of systems are negative. Physical Exam 2 Physical Exam: General: no acute distress and stated age Head: normocephalic, no masses, lesions, tenderness or abnormalities Eyes: conjunctiva are pink and non-injected, sclera clear Neck: supple, no adenopathy, no bruits, normal jugular venous pulse, no hepatojugular reflux Chest: normal shape and normal respiratory effort Lungs: clear to auscultation and percussion Cardiac Exam: - regular rate & rhythm, no murmurs gallops or rubs - normal S1, normal S2 Pulses: 2(+) throughout Abdomen: abdomen soft, non-tender, no abnormal masses and no hepatosplenomegaly Musculoskeletal: no gait disturbance, no joint inflammation, no deforming arthritis Extremities: no edema and no cyanosis Neuro: grossly normal exam Results & Data ([facility]) Vital Signs (Past 12 Hours) Vital Signs Temp Pulse Pulse Resp BP Pulse Ox 01/31/21 07:51 36.8 C 62 18 170/78 H 94 01/31/21 07:15 64 01/31/21 02:55 36.8 C 56 L 18 145/53 H 95 01/31/21 00:06 84 01/30/21 22:48 36.8 C 73 17 171/75 H 96 Laboratory Results Laboratory Results - last 24 hr 01/30/21 01/30/21 01/30/21 11:18 16:39 20:17 WBC RBC Hgb Hct MCV MCH MCHC RDW Std Deviation RDW Coeff of Odilon Plt Count MPV Immature Gran % (Auto) Neut % (Auto) Lymph % (Auto) [place] % (Auto) Eos % (Auto) Baso % (Auto) Neut # (Auto) Lymph # (Auto) [place] # (Auto) Eos # (Auto) Baso # (Auto) Immature Gran # (Auto) APTT PTT Ratio Sodium Potassium Chloride Carbon Dioxide Anion Gap BUN Creatinine Est Cr Clr Drug Dosing Est GFR ( Amer) Est GFR (Non-Af Amer) BUN/Creatinine Ratio Glucose POC Glucose 150 H 121 H 130 H Calcium Magnesium 01/31/21 01/31/21 01/31/21 00:45 00:45 00:45 WBC 6.44 RBC 3.57 L Hgb 10.6 L Hct 31.2 L MCV 87.4 MCH 29.7 MCHC 34.0 RDW Std Deviation 47.4 H RDW Coeff of Odilon 14.6 H Plt Count 203 MPV 9.4 Immature Gran % (Auto) 0.2 Neut % (Auto) 70.0 Lymph % (Auto) 21.7 [place] % (Auto) 7.5 Eos % (Auto) 0.3 Baso % (Auto) 0.3 Neut # (Auto) 4.51 Lymph # (Auto) 1.40 [place] # (Auto) 0.48 Eos # (Auto) 0.02 Baso # (Auto) 0.02 Immature Gran # (Auto) 0.01 APTT 45.7 H* PTT Ratio 1.7 Sodium 138 Potassium 3.5 Chloride 104 Carbon Dioxide 27 Anion Gap 7.0 BUN 35 H Creatinine 3.83 H Est Cr Clr Drug Dosing 12.5 Est GFR ( Amer) 12.9 Est GFR (Non-Af Amer) 11.1 BUN/Creatinine Ratio 9.1 L Glucose 123 H POC Glucose Calcium 8.7 Magnesium 2.3 01/31/21 01/31/21 06:35 07:39 WBC RBC Hgb Hct MCV MCH MCHC RDW Std Deviation RDW Coeff of Odilon Plt Count MPV Immature Gran % (Auto) Neut % (Auto) Lymph % (Auto) [place] % (Auto) Eos % (Auto) Baso % (Auto) Neut # (Auto) Lymph # (Auto) [place] # (Auto) Eos # (Auto) Baso # (Auto) Immature Gran # (Auto) APTT 58.5 H* PTT Ratio 2.2 Sodium Potassium Chloride Carbon Dioxide Anion Gap BUN Creatinine Est Cr Clr Drug Dosing Est GFR ( Amer) Est GFR (Non-Af Amer) BUN/Creatinine Ratio Glucose POC Glucose 146 H Calcium Magnesium Medications Administered Current Inpatient Medications Acetaminophen (Acetaminophen 325 Mg Tab) 650 mg PO Q4H PRN PRN Reason: Pain or Fever Stop: 02/24/21 10:36 Last Admin: 01/30/21 22:50 Dose: 650 mg Documented by: Acetaminophen (Acetaminophen 1000 Mg/100 Ml Iv) 1,000 mg IV Q8H PRN PRN Reason: pain not relieved by po meds Stop: 02/02/21 06:46 Amlodipine Besylate (Amlodipine Besylate 5 Mg Tab) 10 mg PO QAM [facility] Stop: 02/26/21 18:59 Last Admin: 01/31/21 08:41 Dose: 10 mg Documented by: Aspirin (Aspirin 81 Mg Ectab) 81 mg PO QAM [facility] Stop: 02/26/21 09:59 Last Admin: 01/31/21 08:41 Dose: 81 mg Documented by: Buspirone HCl (Buspirone 5 Mg Tab) 5 mg PO BID [facility] Stop: 02/27/21 20:59 Last Admin: 01/31/21 08:41 Dose: 5 mg Documented by: Dextrose (Dextrose 50% 50 Ml Syringe) 25 - 50 ml IV UD PRN; Protocol PRN Reason: Hypoglycemia Protocol Stop: 02/24/21 10:36 Fluticasone/Vilanterol (Fluticasone/Vilanterol 100/25mcg 14 Puffs/Inhaler) 1 puffs INH BID [facility] Stop: 02/26/21 20:59 Last Admin: 01/31/21 08:43 Dose: 1 puffs Documented by: Glucagon (Glucagon For Inj 1 Mg Vial) 1 mg SQ UD PRN; Protocol PRN Reason: Hypoglycemia Protocol Stop: 02/24/21 10:36 Glucose (Glucose 10 Tabs/Tube) 4 - 8 tabs PO UD PRN; Protocol PRN Reason: Hypoglycemia Protocol Stop: 02/24/21 10:36 Glucose (Glucose 40% Gel 15 Gm Tube) 15 - 30 gm PO UD PRN; Protocol PRN Reason: Hypoglycemia Protocol Stop: 02/24/21 10:36 Hydralazine HCl (Hydralazine Tab 50 Mg Tab) 50 mg PO TID [facility] Stop: 03/02/21 08:59 Last Admin: 01/31/21 08:41 Dose: 50 mg Documented by: Heparin Sodium/Dextrose (Heparin Sodium/Dextrose) 25,000 units in 500 mls @ 21 mls/hr IV .[id number] [facility]; Protocol Stop: 02/26/21 10:14 Last Admin: 01/30/21 22:53 Dose: 1,050 units/hr, 21 mls/hr Documented by: Promethazine HCl 12.5 mg/ (Sodium Chloride) 50.5 mls @ 202 mls/hr IV Q6H PRN PRN Reason: Nausea And Vomiting Stop: 03/01/21 19:40 Last Infusion: 01/30/21 21:09 Dose: Infused Documented by: Insulin Aspart (Insulin Aspart 100 Units/Ml 3 Ml Pen) 0 units SC ACHS [facility] Stop: 02/24/21 11:29 Last Admin: 01/31/21 08:45 Dose: 5 units Documented by: Insulin Glargine (Insulin Glargine Solostar 100 Units/Ml 3 Ml Pen) 0 - 8 units SC BID [facility] Stop: 02/24/21 10:36 Last Admin: 01/31/21 08:46 Dose: 4 units Documented by: Lactobacillus Acidophilus (Lactobacillus Acidophilus 1 Gm Pack) 1 gm PO TIDM [facility] Stop: 02/28/21 11:59 Last Admin: 01/31/21 08:41 Dose: 1 gm Documented by: Levothyroxine Sodium (Levothyroxine Sodium 25 Mcg Tablet) 25 mcg PO DAILYBB [facility] Stop: 02/26/21 09:59 Last Admin: 01/31/21 05:54 Dose: 25 mcg Documented by: Loperamide HCl (Loperamide Hcl 2 Mg Cap) 2 mg PO Q6H PRN PRN Reason: Diarrhea Stop: 02/28/21 16:07 Last Admin: 01/31/21 07:03 Dose: 2 mg Documented by: Melatonin (Melatonin 3 Mg Tab) 3 mg PO HS PRN PRN Reason: Sleep Stop: 02/26/21 21:25 Last Admin: 01/30/21 22:51 Dose: 3 mg Documented by: Metoprolol Tartrate (Metoprolol Tartrate 1 Mg/Ml Vial) 5 mg IV Q6 PRN PRN Reason: Tachycardia Stop: 02/26/21 11:59 Last Admin: 01/27/21 09:53 Dose: 5 mg Documented by: Metoprolol Tartrate (Metoprolol Tartrate 25 Mg Tab) 25 mg PO BID [facility] Stop: 03/02/21 08:59 Last Admin: 01/31/21 08:44 Dose: 25 mg Documented by: Mirtazapine (Mirtazapine Tab 15 Mg Tab) 15 mg PO HS PRN PRN Reason: Insomnia Stop: 03/01/21 20:59 Miscellaneous (Carbohydrates For Hypoglycemia ) 15 - 30 gm PO UD PRN PRN Reason: Hypoglycemia Protocol Stop: 02/24/21 10:36 Montelukast Sodium (Montelukast Sodium 10 Mg Tablet) 10 mg PO HS [facility] Stop: 02/26/21 20:59 Last Admin: 01/30/21 21:22 Dose: 10 mg Documented by: Ondansetron HCl (Ondansetron Inj 2 Mg/Ml 2 Ml Vial) 4 mg IV Q6H PRN PRN Reason: Nausea Stop: 02/24/21 10:36 Last Admin: 01/30/21 17:27 Dose: 4 mg Documented by: Polyethylene Glycol (Polyethylene (Miralax) 17 Gm Pack) 17 gm PO DAILY PRN PRN Reason: Constipation Stop: 02/24/21 10:36 Sertraline HCl (Sertraline Hcl 50 Mg Tablet) 150 mg PO QAM [facility] Stop: 02/27/21 14:04 Last Admin: 01/31/21 08:41 Dose: 150 mg Documented by: Sevelamer HCl (Sevelamer Hcl 800 Mg Tablet) 1,600 mg PO TIDM [facility] Stop: 02/27/21 11:59 Last Admin: 01/31/21 08:41 Dose: 1,600 mg Documented by: Vitamin D (Cholecalciferol 1,000 Units 25 Mcg Tab) 1,000 units PO DAILY [facility] Stop: 02/28/21 08:59 Last Admin: 01/31/21 08:41 Dose: 1,000 units Documented by: Warfarin Sodium (Warfarin Sod 5 Mg Tab) 5 mg PO DAILY@1600 [facility] Stop: 03/01/21 15:59 Last Admin: 01/30/21 16:58 Dose: 5 mg Documented by: (1) Altered mental status Altered mental status type: somnolence Qualified Code(s): R40.0 - Somnolence
[2021-01-31 10:33] LABS: INR 1.2 (0.9-1.1); Prothrombin Time 11.9 Seconds (9.0-12.0)
--- NOTE | 2021-01-31 14:20 | Hospitalist Progress Note ---
Date of Service January 31, 2021 Assessment & Plan (1) Altered mental status: Plan: Patient is a 70 yr female who has a significant past medical history of CAD status post CABG, ESRD T/, T2DM, HTN, HLD, history of marijuana use, hypothyroidism, history of A. fib who presents to ED 2/2 to AMS and unresponsiveness. Limited hx given obtundation, son provided minimal history, pt lives alone. Upon my evaluation pt had agonal breathing and bradycardia. There was concern of possible polypharmacy or drug use given known oxycodone prescription and marijuana use; therefore IV narcan was administered.Pt aroused immediately and developed seizure like activity vs myoclonic jerking of all extremities, pt would even occasionally mumble words that were not comprehensible. Acute metabolic encephalopathy Seizure like activity vs Myoclonus Vs polypharmacy/Abuse ; UTI; in setting of ESRD Recent hospitalization 01/07- 2/2 to concern for CVA and myoclonus - felt 2/2 to consistent Remeron use/possible opiates - Remeron was discontinued, unknown if still taking CT head: negative MRI Brain:Mild motion artifact. No definite acute intracranial abnormality. --EEG:This is an abnormal routine EEG in a patient with altered mentation due to generalized background slowing suggestive of a nonspecific encephalopathy. No epileptiform activity is recorded. Toxicology Screen: Positive for opiates, marijuana Appreciate Neurology Input No antiepileptics recommended per Neuro She admits to taking 2 tabs of Oxycodone along with Marijuana Acute metabolic encephalopathy resolved No more confusion and no other symptoms A. fib RVR Spontaneously converted to sinus after IV Lopressor Continue metoprolol 25 mg BID Continue IV heparin Appreciate Cardiology Input Monitor INR:1.2 Increase Coumadin to 7.5 mg today Diarrhea Stool for C diff negative Imodium PRN Resolved ESRD HD t/ Appreciate nephrology input Will have dialysis today 01/31/2021 and likely discharge tomorrow UTI Urine culture growing E.Coli Blood cultures no growth to date Completed 5 day course of Rocephin DM II last a1C 6.4 01/08/21 hold tradjenta lantus/novolog per protocol HTN Continue amlodipine, hydralazine Resume furosemide as able Hydralazine increased to 50 mg twice daily for better blood pressure control Titrate medications as needed CAD hx of CABG Continue Asa Plavix discontinued as started on Coumadin for anticoagulation Known Opiate use/possible opiate abuse +Marijuana, Opiates on drug screen Appreciate Psychiatry Input Counseled to quit Hypothyroidism Continue levothyroxine Depression/Grief Recently lost her Continue home meds Appreciate psychiatry input Insomnia Was on Belsomra Currently held Plan to DC upon discharge given risk for polypharmacy Consider addition of mirtazapine 15mg qhs for insomnia if needed DVT Px: IV Heparin Coumadin Code Status FULL CODE Admission and Anticipated Discharge Date Admission Date: January 25, 2021 Subjective 01/31/2021 The patient was seen and examined in medical telemetry unit She has been feeling much better and wants to go home She will have dialysis today Her INR is not yet therapeutic to be discharged Review of Systems Review of Systems: All systems reviewed and are unremarkable except as noted below Physical Exam Physical Exam: Sitting at the edge of the bed without any symptoms Constitutional: average body habitus; not ill appearing Eyes: PERRL, conjunctivae normal, anicteric sclerae ENMT: external ear and nose normal, oropharynx normal Neck: trachea midline, no thyromegaly Respiratory: no respiratory distress Auscultation: + diminished lung sounds; no crackles and no wheezes Cardiovascular: Rate/Rhythm: regular rate and regular rhythm; not tachycardic Heart Sounds: normal S1 and normal S2; no murmur Gastrointestinal (Abdomen): Inspection/Auscultation: normal bowel sounds; abdomen not distended Percussion/Palpation: abdomen soft; abdomen nontender Musculoskeletal: No acute arthritis in any joint Neurologic: Alert, awake and oriented x3. No focal sensory or motor deficit appreciated Lymphatic: no cervical or axillary lymphadenopathy Results & Data Results & Data ([facility]) Vital Signs (Past 12 Hours) Vital Signs Temp Pulse Pulse Resp BP BP Pulse Ox 01/31/21 13:40 60 130/73 01/31/21 13:20 63 141/72 H 01/31/21 13:00 59 L 177/76 H 01/31/21 12:49 37.1 C 58 L 58 L 160/73 H 01/31/21 11:28 36.8 C 63 20 159/99 H 98 01/31/21 07:51 36.8 C 62 18 170/78 H 94 01/31/21 07:15 64 01/31/21 02:55 36.8 C 56 L 18 145/53 H 95 Laboratory Results Short CBC 01/31/21 Range/Units 00:45 WBC 6.44 (4.8-10.8) K/uL Hgb 10.6 L (12.0-16.0) g/dL Hct 31.2 L (37-47) % Plt Count 203 (130-400) K/uL BMP 01/31/21 00:45 Sodium 138 Potassium 3.5 Chloride 104 Carbon Dioxide 27 BUN 35 H Creatinine 3.83 H Glucose 123 H Calcium 8.7 Medications Administered Current Inpatient Medications Acetaminophen (Acetaminophen 325 Mg Tab) 650 mg PO Q4H PRN PRN Reason: Pain or Fever Stop: 02/24/21 10:36 Last Admin: 01/30/21 22:50 Dose: 650 mg Documented by: Acetaminophen (Acetaminophen 1000 Mg/100 Ml Iv) 1,000 mg IV Q8H PRN PRN Reason: pain not relieved by po meds Stop: 02/02/21 06:46 Amlodipine Besylate (Amlodipine Besylate 5 Mg Tab) 10 mg PO QAM [facility] Stop: 02/26/21 18:59 Last Admin: 01/31/21 08:41 Dose: 10 mg Documented by: Aspirin (Aspirin 81 Mg Ectab) 81 mg PO QAM [facility] Stop: 02/26/21 09:59 Last Admin: 01/31/21 08:41 Dose: 81 mg Documented by: Buspirone HCl (Buspirone 5 Mg Tab) 5 mg PO BID [facility] Stop: 02/27/21 20:59 Last Admin: 01/31/21 08:41 Dose: 5 mg Documented by: Dextrose (Dextrose 50% 50 Ml Syringe) 25 - 50 ml IV UD PRN; Protocol PRN Reason: Hypoglycemia Protocol Stop: 02/24/21 10:36 Fluticasone/Vilanterol (Fluticasone/Vilanterol 100/25mcg 14 Puffs/Inhaler) 1 puffs INH BID [facility] Stop: 02/26/21 20:59 Last Admin: 01/31/21 08:43 Dose: 1 puffs Documented by: Glucagon (Glucagon For Inj 1 Mg Vial) 1 mg SQ UD PRN; Protocol PRN Reason: Hypoglycemia Protocol Stop: 02/24/21 10:36 Glucose (Glucose 10 Tabs/Tube) 4 - 8 tabs PO UD PRN; Protocol PRN Reason: Hypoglycemia Protocol Stop: 02/24/21 10:36 Glucose (Glucose 40% Gel 15 Gm Tube) 15 - 30 gm PO UD PRN; Protocol PRN Reason: Hypoglycemia Protocol Stop: 02/24/21 10:36 Hydralazine HCl (Hydralazine Tab 50 Mg Tab) 50 mg PO TID [facility] Stop: 03/02/21 08:59 Last Admin: 01/31/21 08:41 Dose: 50 mg Documented by: Heparin Sodium/Dextrose (Heparin Sodium/Dextrose) 25,000 units in 500 mls @ 21 mls/hr IV .[id number] [facility]; Protocol Stop: 02/26/21 10:14 Last Admin: 01/30/21 22:53 Dose: 1,050 units/hr, 21 mls/hr Documented by: Promethazine HCl 12.5 mg/ (Sodium Chloride) 50.5 mls @ 202 mls/hr IV Q6H PRN PRN Reason: Nausea And Vomiting Stop: 03/01/21 19:40 Last Infusion: 01/30/21 21:09 Dose: Infused Documented by: Sodium Chloride (Nss 1000ml) 1,000 mls @ 0 mls/hr IV .Q0M PRN PRN Reason: For Hemodialysis Use ONLY Stop: 01/31/21 15:56 Insulin Aspart (Insulin Aspart 100 Units/Ml 3 Ml Pen) 0 units SC ACHS [facility] Stop: 02/24/21 11:29 Last Admin: 01/31/21 11:56 Dose: Not Given Documented by: Insulin Glargine (Insulin Glargine Solostar 100 Units/Ml 3 Ml Pen) 0 - 8 units SC BID [facility] Stop: 02/24/21 10:36 Last Admin: 01/31/21 08:46 Dose: 4 units Documented by: Lactobacillus Acidophilus (Lactobacillus Acidophilus 1 Gm Pack) 1 gm PO TIDM [facility] Stop: 02/28/21 11:59 Last Admin: 01/31/21 11:52 Dose: 1 gm Documented by: Levothyroxine Sodium (Levothyroxine Sodium 25 Mcg Tablet) 25 mcg PO DAILYBB [facility] Stop: 02/26/21 09:59 Last Admin: 01/31/21 05:54 Dose: 25 mcg Documented by: Loperamide HCl (Loperamide Hcl 2 Mg Cap) 2 mg PO Q6H PRN PRN Reason: Diarrhea Stop: 02/28/21 16:07 Last Admin: 01/31/21 07:03 Dose: 2 mg Documented by: Melatonin (Melatonin 3 Mg Tab) 3 mg PO HS PRN PRN Reason: Sleep Stop: 02/26/21 21:25 Last Admin: 01/30/21 22:51 Dose: 3 mg Documented by: Metoprolol Tartrate (Metoprolol Tartrate 1 Mg/Ml Vial) 5 mg IV Q6 PRN PRN Reason: Tachycardia Stop: 02/26/21 11:59 Last Admin: 01/27/21 09:53 Dose: 5 mg Documented by: Metoprolol Tartrate (Metoprolol Tartrate 25 Mg Tab) 25 mg PO BID [facility] Stop: 03/02/21 08:59 Last Admin: 01/31/21 08:44 Dose: 25 mg Documented by: Mirtazapine (Mirtazapine Tab 15 Mg Tab) 15 mg PO HS PRN PRN Reason: Insomnia Stop: 03/01/21 20:59 Miscellaneous (Carbohydrates For Hypoglycemia ) 15 - 30 gm PO UD PRN PRN Reason: Hypoglycemia Protocol Stop: 02/24/21 10:36 Montelukast Sodium (Montelukast Sodium 10 Mg Tablet) 10 mg PO HS [facility] Stop: 02/26/21 20:59 Last Admin: 01/30/21 21:22 Dose: 10 mg Documented by: Ondansetron HCl (Ondansetron Inj 2 Mg/Ml 2 Ml Vial) 4 mg IV Q6H PRN PRN Reason: Nausea Stop: 02/24/21 10:36 Last Admin: 01/30/21 17:27 Dose: 4 mg Documented by: Polyethylene Glycol (Polyethylene (Miralax) 17 Gm Pack) 17 gm PO DAILY PRN PRN Reason: Constipation Stop: 02/24/21 10:36 Sertraline HCl (Sertraline Hcl 50 Mg Tablet) 150 mg PO QAM [facility] Stop: 02/27/21 14:04 Last Admin: 01/31/21 08:41 Dose: 150 mg Documented by: Sevelamer HCl (Sevelamer Hcl 800 Mg Tablet) 1,600 mg PO TIDM [facility] Stop: 02/27/21 11:59 Last Admin: 01/31/21 11:52 Dose: 1,600 mg Documented by: Vitamin D (Cholecalciferol 1,000 Units 25 Mcg Tab) 1,000 units PO DAILY [facility] Stop: 02/28/21 08:59 Last Admin: 01/31/21 08:41 Dose: 1,000 units Documented by: Warfarin Sodium (Warfarin Sod 5 Mg Tab) 5 mg PO DAILY@1600 [facility] Stop: 03/01/21 15:59 Last Admin: 01/30/21 16:58 Dose: 5 mg Documented by: (1) Altered mental status Altered mental status type: somnolence Qualified Code(s): R40.0 - Somnolence
[2021-01-31] MEDS ORDERED: WARFARIN SOD 7.5 MG TAB PO SCH (16:00)
--- NOTE | 2021-01-31 16:40 | Dialysis Progress Note ---
Date of Service January 31, 2021 Assessment & Plan (1) End stage renal disease: Plan: ESRD > admitted w/ metabolic encephalopathy ? d/t THC, opiates. SBP robust > target 2-2.5L UF. not floridly overloaded though and chemistries ok. above SAMRA targets for hgb. -for HD today -no heparin on tx d/t heparin gtt -4K bath given arrhythmias -next HD on 02/02 or as needs dictate Admission and Anticipated Discharge Date Admission Date: January 25, 2021 Subjective remains on heparin gtt but changing to warfarin; no uncontrolled pain or sob; no further episodes of confusion Review of Systems Review of Systems: All systems reviewed & are unremarkable except as noted in Subjective Physical Exam Constitutional: well developed and well nourished Eyes: EOM intact bilaterally ENMT: Ears: no external ear abnormality Nose: no external nose abnormality Mouth: + dry oral mucous membranes Neck: no nuchal rigidity Respiratory: normal respiratory effort and able to speak in complete sentences Auscultation: + diminished lung sounds Cardiovascular: Rate/Rhythm: regular rate and regular rhythm Heart Sounds: normal S1 and normal S2 Extremities: + AV fistula; no edema Gastrointestinal (Abdomen): Inspection/Auscultation: normal bowel sounds Percussion/Palpation: abdomen soft; abdomen nontender Musculoskeletal: Extremities: strength 5/5 throughout Skin: no rashes, warm and dry Neurologic: de paz, fluent speech, no tremor Psychiatric: Orientation: alert and oriented x 3 Results & Data ([facility]) Vital Signs (Past 12 Hours) Vital Signs Temp Pulse Pulse Resp BP BP Pulse Ox 01/31/21 16:00 76 113/60 01/31/21 15:40 70 98/56 L 01/31/21 15:20 72 120/54 L 01/31/21 15:00 67 147/72 H 01/31/21 14:40 60 113/69 01/31/21 14:20 60 142/74 H 01/31/21 14:00 65 149/67 H 01/31/21 13:40 60 130/73 01/31/21 13:20 63 141/72 H 01/31/21 13:00 59 L 177/76 H 01/31/21 12:49 37.1 C 58 L 58 L 160/73 H 01/31/21 11:28 36.8 C 63 20 159/99 H 98 01/31/21 07:51 36.8 C 62 18 170/78 H 94 01/31/21 07:15 64 Laboratory Results 01/31/21 00:45 01/31/21 00:45
[2021-01-31] MEDS ORDERED: CALCIUM CARBONATE 500 MG CHEWABLE TAB PO STA (20:11)
[2021-01-31] MEDS: MELATONIN 3 MG TAB PO PRN (20:34)
[2021-01-31] MEDS: MONTELUKAST SODIUM 10 MG TABLET PO SCH (20:36)
[2021-01-31] MEDS: PROMETHAZINE HCL 12.5 MG in SODIUM CHLORIDE 0.9% 50 ML IV PRN (21:48)
[2021-01-31] MEDS: HEPARIN SODIUM/DEXTROSE 25,000 UNITS/500 ML BAG IV SCH (21:49)
[2021-01-31] MEDS: ONDANSETRON INJ 2 MG/ML 2 ML VIAL IV PRN (23:51)
[2021-02-01] MEDS: ACETAMINOPHEN 325 MG TAB PO PRN ×3 (01:59→11:04)
[2021-02-01] MEDS: LEVOTHYROXINE SODIUM 25 MCG TABLET PO SCH (06:17)
[2021-02-01 07:26] LABS: Basophils # (auto) 0.02 K/uL (0-0.2); Basophils % (auto) 0.3 %; Eosinophils # (auto) 0.02 K/uL (0-0.5); Eosinophils % (auto) 0.3 %; Hematocrit (blood only) 36.3 % (37-47); Hemoglobin 12.2 g/dL (12.0-16.0); Lymphocytes # (auto) 1.66 K/uL (1.2-3.4); Lymphocytes % (auto) 22.8 %; Mean Corpuscular Hemoglobin 29.7 pg (25-34); Mean Corpuscular Hgb Conc 33.6 g/dL (32-36); Mean Corpuscular Volume 88.3 fL (80-100); Mean Platelet Volume 9.8 fL (7.4-10.4); Monocytes % (auto) 9.6 %; Neutrophils # (auto) 4.88 K/uL (1.4-6.5); Platelet Count 234 K/uL (130-400); RDW Coefficient of Variation 14.7 % (11.5-14.5); Red Blood Count 4.11 M/uL (4.2-5.4); White Blood Count 7.28 K/uL (4.8-10.8)
[2021-02-01 07:49] LABS: INR 1.7 (0.9-1.1); Partial Thromboplastin Ratio 2.8; Prothrombin Time 16.2 Seconds (9.0-12.0)
[2021-02-01 07:57] LABS: Partial Thromboplastin Time 74.5 Seconds (21.0-31.0)
[2021-02-01 08:05] LABS: BUN Creatinine Ratio 5.4 (10-20); Calcium 9.1 mg/dl (8.5-10.1); Creatinine Clr Calc Pharmacy 14.1 ml/min; Est GFR (African American) 16.5 ml/min; Est GFR (Non-African American) 14.2 ml/min; Potassium 3.8 mmol/L (3.5-5.1)
[2021-02-01] MEDS: SERTRALINE HCL 50 MG TABLET PO SCH (08:31)
[2021-02-01] MEDS: hydrALAZINE TAB 50 MG TAB PO SCH (08:31)
[2021-02-01] MEDS: CHOLECALCIFEROL 1,000 UNITS 25 MCG TAB PO SCH (08:31)
[2021-02-01] MEDS: busPIRone 5 MG TAB PO SCH (08:31)
[2021-02-01] MEDS: amLODIPine BESYLATE 5 MG TAB PO SCH (08:32)
[2021-02-01] MEDS: SEVELAMER HCL 800 MG TABLET PO SCH ×2 (08:32→11:57)
[2021-02-01] MEDS: METOPROLOL TARTRATE 25 MG TAB PO SCH (08:32)
[2021-02-01] MEDS: ASPIRIN 81 MG ECTAB PO SCH (08:32)
[2021-02-01] MEDS: INSULIN ASPART 100 UNITS/ML 3 ML PEN SC SCH ×2 (08:33→11:56)
[2021-02-01] MEDS: LACTOBACILLUS ACIDOPHILUS 1 GM PACK PO SCH ×2 (08:33→11:57)
[2021-02-01] MEDS: FLUTICASONE/VILANTEROL 100/25MCG 14 PUFFS/INHALER INH SCH (08:34)
[2021-02-01] MEDS: INSULIN GLARGINE SOLOSTAR 100 UNITS/ML 3 ML PEN SC SCH (08:35)
[2021-02-01] MEDS: ONDANSETRON INJ 2 MG/ML 2 ML VIAL IV PRN (08:40)
--- NOTE | 2021-02-01 11:03 | Hospitalist Progress Note ---
Date of Service February 01, 2021 Assessment & Plan (1) Altered mental status: Plan: Patient is a 70 yr female who has a significant past medical history of CAD status post CABG, ESRD T//, T2DM, HTN, HLD, history of marijuana use, hypothyroidism, history of A. fib who presents to ED 2/2 to AMS and unresponsiveness. Limited hx given obtundation, son provided minimal history, pt lives alone. Upon my evaluation pt had agonal breathing and bradycardia. There was concern of possible polypharmacy or drug use given known oxycodone prescription and marijuana use; therefore IV narcan was administered.Pt aroused immediately and developed seizure like activity vs myoclonic jerking of all extremities, pt would even occasionally mumble words that were not comprehensible. Acute metabolic encephalopathy Seizure like activity vs Myoclonus Vs polypharmacy/Abuse ; UTI; in setting of ESRD Recent hospitalization 01/07- 2/2 to concern for CVA and myoclonus - felt 2/2 to consistent Remeron use/possible opiates - Remeron was discontinued, unknown if still taking CT head: negative MRI Brain:Mild motion artifact. No definite acute intracranial abnormality. --EEG:This is an abnormal routine EEG in a patient with altered mentation due to generalized background slowing suggestive of a nonspecific encephalopathy. No epileptiform activity is recorded. Toxicology Screen: Positive for opiates, marijuana Appreciate Neurology Input No antiepileptics recommended per Neuro She admits to taking 2 tabs of Oxycodone along with Marijuana Acute metabolic encephalopathy resolved No more confusion and no other symptoms Completely resolved denies any acute confusion A. fib RVR Spontaneously converted to sinus after IV Lopressor Continue metoprolol 25 mg BID Continue IV heparin Appreciate Cardiology Input Monitor INR:1.2 Increase Coumadin to 7.5 mg today INR is 1.7 today-discussed with the building construction superintendent and he can be discharged Diarrhea Stool for C diff negative Imodium PRN Resolved ESRD HD // Appreciate nephrology input Will have dialysis today 01/31/2021 and likely discharge tomorrow Will have dialysis as a scheduled as an outpatient UTI Urine culture growing E.Coli Blood cultures no growth to date Completed 5 day course of Rocephin DM II last a1C 6.4 01/08/21 hold tradjenta lantus/novolog per protocol HTN Continue amlodipine, hydralazine Resume furosemide as able Hydralazine increased to 50 mg twice daily for better blood pressure control Titrate medications as needed Remains on the upper side CAD hx of CABG Continue Asa Plavix discontinued as started on Coumadin for anticoagulation Known Opiate use/possible opiate abuse +Marijuana, Opiates on drug screen Appreciate Psychiatry Input Counseled to quit Hypothyroidism Continue levothyroxine Depression/Grief Recently lost her Continue home meds Appreciate psychiatry input Insomnia Was on Belsomra Currently held Plan to DC upon discharge given risk for polypharmacy Consider addition of mirtazapine 15mg qhs for insomnia if needed DVT Px: IV Heparin Coumadin Code Status FULL CODE Discussed with the son and she will be discharged at around 2 PM today Admission and Anticipated Discharge Date Admission Date: January 25, 2021 Subjective 01/31/2021 The patient was seen and examined in medical telemetry unit She has been feeling much better and wants to go home She will have dialysis today Her INR is not yet therapeutic to be discharged 02/01/2021 The patient was seen and examined in medical telemetry unit She was little upset this morning because she was not allowed to go to bathroom by herself which she can do Denies any other symptoms except she did not have a good night sleep She wants to go home today Review of Systems Review of Systems: All systems reviewed and are unremarkable except as noted below Physical Exam Physical Exam: Lying in bed without any acute distress Constitutional: average body habitus; not ill appearing Eyes: PERRL, conjunctivae normal, anicteric sclerae ENMT: external ear and nose normal, oropharynx normal Neck: trachea midline, no thyromegaly Respiratory: no respiratory distress Auscultation: + diminished lung sounds; no crackles and no wheezes Cardiovascular: Rate/Rhythm: regular rate and regular rhythm; not tachycardic Heart Sounds: normal S1 and normal S2; no murmur Gastrointestinal (Abdomen): Inspection/Auscultation: normal bowel sounds; abdomen not distended Percussion/Palpation: abdomen soft; abdomen nontender Musculoskeletal: No acute arthritis in any joint Neurologic: Alert, awake and oriented x3. No focal sensory and motor deficit appreciated Lymphatic: no cervical or axillary lymphadenopathy Results & Data Results & Data ([facility]) Vital Signs (Past 12 Hours) Vital Signs Temp Pulse Pulse Resp BP Pulse Ox 02/01/21 07:32 36.5 C 78 18 164/72 H 96 02/01/21 07:15 66 02/01/21 07:11 67 02/01/21 04:35 36.7 C 70 18 166/79 H 96 02/01/21 00:20 36.5 C 62 16 164/63 H 96 Laboratory Results Short CBC 02/01/21 Range/Units 07:11 WBC 7.28 (4.8-10.8) K/uL Hgb 12.2 (12.0-16.0) g/dL Hct 36.3 L (37-47) % Plt Count 234 (130-400) K/uL BMP 02/01/21 07:11 Sodium 136 Potassium 3.8 Chloride 101 Carbon Dioxide 27 BUN 17 D Creatinine 3.12 H D Glucose 155 H Calcium 9.1 Medications Administered Current Inpatient Medications Acetaminophen (Acetaminophen 325 Mg Tab) 650 mg PO Q4H PRN PRN Reason: Pain or Fever Stop: 02/24/21 10:36 Last Admin: 02/01/21 11:04 Dose: 650 mg Documented by: Acetaminophen (Acetaminophen 1000 Mg/100 Ml Iv) 1,000 mg IV Q8H PRN PRN Reason: pain not relieved by po meds Stop: 02/02/21 06:46 Amlodipine Besylate (Amlodipine Besylate 5 Mg Tab) 10 mg PO QAM [facility] Stop: 02/26/21 18:59 Last Admin: 02/01/21 08:32 Dose: 10 mg Documented by: Aspirin (Aspirin 81 Mg Ectab) 81 mg PO QAM [facility] Stop: 02/26/21 09:59 Last Admin: 02/01/21 08:32 Dose: 81 mg Documented by: Buspirone HCl (Buspirone 5 Mg Tab) 5 mg PO BID [facility] Stop: 02/27/21 20:59 Last Admin: 02/01/21 08:31 Dose: 5 mg Documented by: Dextrose (Dextrose 50% 50 Ml Syringe) 25 - 50 ml IV UD PRN; Protocol PRN Reason: Hypoglycemia Protocol Stop: 02/24/21 10:36 Fluticasone/Vilanterol (Fluticasone/Vilanterol 100/25mcg 14 Puffs/Inhaler) 1 puffs INH BID [facility] Stop: 02/26/21 20:59 Last Admin: 02/01/21 08:34 Dose: 1 puffs Documented by: Glucagon (Glucagon For Inj 1 Mg Vial) 1 mg SQ UD PRN; Protocol PRN Reason: Hypoglycemia Protocol Stop: 02/24/21 10:36 Glucose (Glucose 10 Tabs/Tube) 4 - 8 tabs PO UD PRN; Protocol PRN Reason: Hypoglycemia Protocol Stop: 02/24/21 10:36 Glucose (Glucose 40% Gel 15 Gm Tube) 15 - 30 gm PO UD PRN; Protocol PRN Reason: Hypoglycemia Protocol Stop: 02/24/21 10:36 Hydralazine HCl (Hydralazine Tab 50 Mg Tab) 50 mg PO TID [facility] Stop: 03/02/21 08:59 Last Admin: 02/01/21 08:31 Dose: 50 mg Documented by: Heparin Sodium/Dextrose (Heparin Sodium/Dextrose) 25,000 units in 500 mls @ 20 mls/hr IV .Q24H [facility]; Protocol Stop: 02/26/21 10:14 Last Titration: 02/01/21 08:21 Dose: 1,000 units/hr, 20 mls/hr Documented by: Promethazine HCl 12.5 mg/ (Sodium Chloride) 50.5 mls @ 202 mls/hr IV Q6H PRN PRN Reason: Nausea And Vomiting Stop: 03/01/21 19:40 Last Infusion: 01/31/21 22:04 Dose: Infused Documented by: Insulin Aspart (Insulin Aspart 100 Units/Ml 3 Ml Pen) 0 units SC ACHS [facility] Stop: 02/24/21 11:29 Last Admin: 02/01/21 08:33 Dose: Not Given Documented by: Insulin Glargine (Insulin Glargine Solostar 100 Units/Ml 3 Ml Pen) 0 - 8 units SC BID [facility] Stop: 02/24/21 10:36 Last Admin: 02/01/21 08:35 Dose: 4 units Documented by: Lactobacillus Acidophilus (Lactobacillus Acidophilus 1 Gm Pack) 1 gm PO TIDM [facility] Stop: 02/28/21 11:59 Last Admin: 02/01/21 08:33 Dose: 1 gm Documented by: Levothyroxine Sodium (Levothyroxine Sodium 25 Mcg Tablet) 25 mcg PO DAILYBB [facility] Stop: 02/26/21 09:59 Last Admin: 02/01/21 06:17 Dose: 25 mcg Documented by: Loperamide HCl (Loperamide Hcl 2 Mg Cap) 2 mg PO Q6H PRN PRN Reason: Diarrhea Stop: 02/28/21 16:07 Last Admin: 01/31/21 07:03 Dose: 2 mg Documented by: Melatonin (Melatonin 3 Mg Tab) 3 mg PO HS PRN PRN Reason: Sleep Stop: 02/26/21 21:25 Last Admin: 01/31/21 20:34 Dose: 3 mg Documented by: Metoprolol Tartrate (Metoprolol Tartrate 1 Mg/Ml Vial) 5 mg IV Q6 PRN PRN Reason: Tachycardia Stop: 02/26/21 11:59 Last Admin: 01/27/21 09:53 Dose: 5 mg Documented by: Metoprolol Tartrate (Metoprolol Tartrate 25 Mg Tab) 25 mg PO BID [facility] Stop: 03/02/21 08:59 Last Admin: 02/01/21 08:32 Dose: 25 mg Documented by: Mirtazapine (Mirtazapine Tab 15 Mg Tab) 15 mg PO HS PRN PRN Reason: Insomnia Stop: 03/01/21 20:59 Miscellaneous (Carbohydrates For Hypoglycemia ) 15 - 30 gm PO UD PRN PRN Reason: Hypoglycemia Protocol Stop: 02/24/21 10:36 Montelukast Sodium (Montelukast Sodium 10 Mg Tablet) 10 mg PO HS [facility] Stop: 02/26/21 20:59 Last Admin: 01/31/21 20:36 Dose: 10 mg Documented by: Ondansetron HCl (Ondansetron Inj 2 Mg/Ml 2 Ml Vial) 4 mg IV Q6H PRN PRN Reason: Nausea Stop: 02/24/21 10:36 Last Admin: 02/01/21 08:40 Dose: 4 mg Documented by: Polyethylene Glycol (Polyethylene (Miralax) 17 Gm Pack) 17 gm PO DAILY PRN PRN Reason: Constipation Stop: 02/24/21 10:36 Sertraline HCl (Sertraline Hcl 50 Mg Tablet) 150 mg PO QAM [facility] Stop: 02/27/21 14:04 Last Admin: 02/01/21 08:31 Dose: 150 mg Documented by: Sevelamer HCl (Sevelamer Hcl 800 Mg Tablet) 1,600 mg PO TIDM [facility] Stop: 02/27/21 11:59 Last Admin: 02/01/21 08:32 Dose: 1,600 mg Documented by: Vitamin D (Cholecalciferol 1,000 Units 25 Mcg Tab) 1,000 units PO DAILY [facility] Stop: 02/28/21 08:59 Last Admin: 02/01/21 08:31 Dose: 1,000 units Documented by: Warfarin Sodium (Warfarin Sod 7.5 Mg Tab) 7.5 mg PO DAILY@1600 [facility] Stop: 03/02/21 15:59 Last Admin: 01/31/21 16:59 Dose: 7.5 mg Documented by: (1) Altered mental status Altered mental status type: somnolence Qualified Code(s): R40.0 - Somnolence
--- NOTE | 2021-02-02 08:09 | Discharge Summary ---
Date of Service February 02, 2021 Admission HPI Per Admitting Provider This is a 70-year-old female who has a significant past medical history of CAD status post CABG, ESRD T//, T2DM, HTN, HLD, history of marijuana use, hypothyroidism, history of A. fib who presents to ED 2/2 to AMS and unresponsiveness. She was found at home by her son on their spare bathroom floor. She was awake, minimally alert and having seizure like activity of her R arm per her son. EMS was summoned and found pt, "flailing," so 1mg of ativan was given which made her obtunded. When she came to ER she was unresponsive and hx was unable to be obtained. Of significance she was recently admitted 01/07-01/10 2/ to slurred speech and myoclonic jerks. She underwent CVA work up which was negative. She was seen and eval by neuro who felt sx may be related to consistent use of Remeron as well as concomitant use of Belsomra, oxycodone and marijuana. She admitted last admission to taking her husbands oxycodone and smoking marijuana. When speaking to son he is unaware what medications she has been taking, but does known she was getting marijuana from her friends. In ED she remained hemodynamically stable. Initial work up revealed CBC generally unremarkable except for h/h 11.1 & 35.1, ABG ph 7.4, Pco2 45, bun/cr stable at 68 and 5.81 in setting of ESRD, mag 2.8, CK 274. Last known well is not known. Admission Exam Per Admitting Provider Physical Exam: Constitutional: Petite, elderly F, initially obtunded with agonal breathing, vitals as above, s/p IV narcan administration pt became alert but not oriented and had generalized myotonic jerking/seizure like activity, she also would intermittent talk, but would not make sense Head: Normocephalic, Atraumatic Eyes: PERRL, conjunctivae normal, anicteric sclerae ENMT: external ear and nose normal, oropharynx normal Neck: trachea midline, no thyromegaly normal visual inspection Respiratory: initially agonal breathing with periods of apnea, which resolved s/p narcan administration, lungs clear to auscultation, no wheeze, rales, rhonchi. Normal insp/exp effort, no accessory muscle use Cardiovascular: initially bradycardic, s/p narcan was tachycardiac, RRR, no murmur, no edema Vessels: no JVD or carotid bruit Chest: normal inspection of chest Abdomen: normal bowel sounds, soft, nontender, no hepatosplenomegaly Musculoskeletal: no cyanosis or clubbing, extremities AROM x 4, myoclonic tonic clonic jerking, strength unable to be assessed Skin: no rashes, warm and dry normal turgor Neurologic: PERRL, EOMI, accommodation nl, no face palsy, no dysarthria CN's II-XI intact bilaterally and moves all extremities Psychiatric: alerted, not oriented, euthymic affect Lymphatic: no cervical or axillary lymphadenopathy : yellow urine via purewic Principal Diagnosis Altered mental status-resolved, A. fib with RVR, end-stage renal disease on hemodialysis, type 2 diabetes, hypertension, depression Discharge Exam Lying in bed without any acute distress Constitutional average body habitus; not ill appearing Eyes PERRL, conjunctivae normal, anicteric sclerae ENMT external ear and nose normal, oropharynx normal Neck trachea midline, no thyromegaly Respiratory no respiratory distress Auscultation: + diminished lung sounds; no crackles and no wheezes Cardiovascular Rate/Rhythm: regular rate and regular rhythm; not tachycardic Heart Sounds: normal S1 and normal S2; no murmur Gastrointestinal (Abdomen) Inspection/Auscultation: normal bowel sounds; abdomen not distended Percussion/Palpation: abdomen soft; abdomen nontender Lymphatic no cervical or axillary lymphadenopathy Discharge Data Allergies Allergy/AdvReac Type Severity Reaction Status Date / Time bee venom protein (honey bee) Allergy Intermediate MOUTH Verified 01/25/21 07:40 SWELLING prednisone Allergy Intermediate SWELLING Verified 01/25/21 07:40 OG HANDS, ITCHING, RASH tomato Allergy Intermediate Hives Verified 01/25/21 07:40 Penicillins Allergy Mild RASH Verified 01/25/21 07:40 rosuvastatin Allergy Mild SEVERE H/A Verified 01/25/21 07:40 trazodone AdvReac Severe Confusion Verified 01/25/21 07:40 Oefiloz-SVX-TvE Reductase AdvReac Mild EFFECTED Verified 01/25/21 07:40 Inhibitor LIVER [Sgymgfp-Fsa-Vek Reductase STUDIES Inhibitor] Consultations 01/25/21 08:19 ED Decision to Admit Stat 01/25/21 08:43 Consult Nephrology Routine 01/25/21 10:37 Consult Neurology Routine 01/27/21 09:57 Consult Cardiology Routine 01/27/21 13:03 Consult Psychiatry Routine Ordered Studies 01/25/21 06:42 CT head/brain wo con Stat 01/25/21 12:00 MR brain wo con Urgent 01/30/21 19:53 CT head/brain wo con Urgent Hospital Course (1) Altered mental status: Patient is a 70 yr female who has a significant past medical history of CAD status post CABG, ESRD T//, T2DM, HTN, HLD, history of marijuana use, hypothyroidism, history of A. fib who presents to ED 2/2 to AMS and unresponsiveness. Limited hx given obtundation, son provided minimal history, pt lives alone. Upon my evaluation pt had agonal breathing and bradycardia. There was concern of possible polypharmacy or drug use given known oxycodone prescription and marijuana use; therefore IV narcan was administered.Pt aroused immediately and developed seizure like activity vs myoclonic jerking of all extremities, pt would even occasionally mumble words that were not comprehensible. Acute metabolic encephalopathy Seizure like activity vs Myoclonus Vs polypharmacy/Abuse ; UTI; in setting of ESRD Recent hospitalization 01/07- 2/2 to concern for CVA and myoclonus - felt 2/2 to consistent Remeron use/possible opiates - Remeron was discontinued, unknown if still taking CT head: negative MRI Brain:Mild motion artifact. No definite acute intracranial abnormality. --EEG:This is an abnormal routine EEG in a patient with altered mentation due to generalized background slowing suggestive of a nonspecific encephalopathy. No epileptiform activity is recorded. Toxicology Screen: Positive for opiates, marijuana Appreciate Neurology Input No antiepileptics recommended per Neuro She admits to taking 2 tabs of Oxycodone along with Marijuana Acute metabolic encephalopathy resolved No more confusion and no other symptoms Completely resolved denies any acute confusion A. fib RVR Spontaneously converted to sinus after IV Lopressor Continue metoprolol 25 mg BID Continue IV heparin Appreciate Cardiology Input Monitor INR:1.2 Increase Coumadin to 7.5 mg today INR is 1.7 today-discussed with the shredding machine tender and he can be discharged Diarrhea Stool for C diff negative Imodium PRN Resolved ESRD HD t//sa Appreciate nephrology input Will have dialysis today 01/31/2021 and likely discharge tomorrow Will have dialysis as a scheduled as an outpatient UTI Urine culture growing E.Coli Blood cultures no growth to date Completed 5 day course of Rocephin DM II last a1C 6.4 01/08/21 hold tradjenta lantus/novolog per protocol HTN Continue amlodipine, hydralazine Resume furosemide as able Hydralazine increased to 50 mg twice daily for better blood pressure control Titrate medications as needed Remains on the upper side CAD hx of CABG Continue Asa Plavix discontinued as started on Coumadin for anticoagulation Known Opiate use/possible opiate abuse +Marijuana, Opiates on drug screen Appreciate Psychiatry Input Counseled to quit Hypothyroidism Continue levothyroxine Depression/Grief Recently lost her Continue home meds Appreciate psychiatry input Insomnia Was on Belsomra Currently held Plan to DC upon discharge given risk for polypharmacy Consider addition of mirtazapine 15mg qhs for insomnia if needed DVT Px: IV Heparin Coumadin Code Status FULL CODE Discussed with the son and she will be discharged at around 2 PM today Total Time Total Time Spent Total Time Spent (In Minutes): 35 minutes Discharge Plan Discharge Items Patient Disposition: Home - Self-Care Reason For Visit: UNRESPONSIVE,?SEIZURE LIKE ACTIVITY Discharge Diagnosis: Altered mental status-resolved, A. fib with RVR, end-stage renal disease on hemodialysis, type 2 diabetes, hypertension, depression Condition on Discharge: Good Activity: Resume your previous activity Non-emergency contact: Primary Care Provider Call non-emergency contact if: you have any medication questions and your symptoms worsen Follow-up/Referrals: [facility] [Other] (Date & Time 02/04/2021 1:00 PM Provider [facility] Date & Time 02/11/2021 1:00 PM Provider HERNAN Mckeon Department [facility], [facility] ) Ac Mcmanus DO [Primary Care Provider] - (Date & Time 02/08/2021 11:00 AM Provider Ac Mcmanus DO Department [facility] ) Diet: Carb Consistent or DM2 and Dialysis Renal Fluids: 1500ml (6 cups) Addtl Attending Provider Instructions: Please take precautions to avoid fall Please do not take any more narcotics pain medication Try Tylenol extra strength 2 tablets up to 3 times a day for pain Take Coumadin regularly and have follow-up with coagulation clinic to maintain the INR between 2-3 and adjust the doses of Coumadin Please keep appointments with your primary care provider, coagulation clinic and outpatient dialysis clinic Pending Studies at Discharge: No Stand-Alone Forms: My [facility] [address], Opioid Pain Management, Work/School Release, Smoking Cessation Medications and DC Order Prescriptions: New hydralazine 50 mg Tablet 50 mg PO TID Qty: 90 RF: 0 metoprolol tartrate 25 mg Tablet 25 mg PO BID Qty: 60 RF: 0 mirtazapine 15 mg Tablet 15 mg PO HS PRN (Reason: sleep) Qty: 30 RF: 0 warfarin 5 mg tablet 5 mg PO DAILY@1600 Qty: 30 RF: 0 Continued amlodipine [Norvasc] 10 mg tablet 10 mg PO QAM RF: 0 Tradjenta 5 mg Tablet 5 mg PO QAM RF: 0 nitroglycerin [Nitrostat] 0.4 mg Tablet, Sublingual 0.4 mg sublingual UD PRN (Reason: Angina) RF: 0 sertraline [Zoloft] 100 mg Tablet 150 mg PO QAM RF: 0 aspirin [Aspirin Low Dose] 81 mg Tablet,Delayed Release (Dr/Ec) 81 mg PO QAM RF: 0 levothyroxine 25 mcg Tablet 25 mcg PO QAM RF: 0 montelukast [Singulair] 10 mg Tablet 10 mg PO HS RF: 0 fluticasone propionate [Flonase Allergy Relief] 50 mcg/actuation [place],Suspension 1 spray INTRANASAL DAILY PRN (Reason: Nasal Congestion) RF: 0 azelastine 0.15 % (205.5 mcg) [place],Non-Aerosol 1 spray INTRANASAL QAM RF: 0 ProAir RespiClick 90 mcg/actuation Aerosol Powdr Breath Activated 2 puff INHALATION QID PRN (Reason: Shortness Of Breath) RF: 0 sevelamer carbonate [Renvela] 800 mg Tablet 1,600 mg PO TIDM RF: 0 furosemide 40 mg tablet 40 mg PO QAM RF: 0 buspirone 5 mg tablet 5 mg PO BID RF: 0 ipratropium-albuterol 0.5 mg-3 mg(2.5 mg base)/3 mL Solution For Nebulization 3 ml INHALATION Q4H PRN (Reason: Shortness Of Breath) RF: 0 ondansetron HCl 8 mg tablet 8 mg PO TID PRN (Reason: Nausea) RF: 0 ammonium lactate 12 % Cream 1 applic TOPICAL DAILY PRN (Reason: .) RF: 0 epinephrine 0.3 mg/0.3 mL Auto-Injector 0.3 mg IM Q4H PRN (Reason: Anaphylaxis) RF: 0 cholecalciferol (vitamin D3) [Vitamin D3] 25 mcg (1,000 unit) Capsule 25 mcg PO DAILY RF: 0 cyclobenzaprine 5 mg tablet 5 mg PO UD RF: 0 Breo Ellipta 100-25 mcg/dose blister with device 1 inh INHALATION BID RF: 0 potassium gluconate 600 mg (99 mg) Tablet 600 mg PO DAILY RF: 0 Discontinued hydralazine 25 mg Tablet 50 mg PO QPM RF: 0 clopidogrel [Plavix] 75 mg Tablet 75 mg PO QAM RF: 0 Belsomra 20 mg Tablet 20 mg PO HS RF: 0 levocetirizine [Xyzal] 5 mg Tablet 5 mg PO PM RF: 0 oxycodone-acetaminophen [Percocet] 5-325 mg Tablet 1 tab PO Q8H PRN (Reason: pain) Qty: 10 RF: 0 Discharge Orders: Discharge Order (Routine); Ordered 02/01/21 Ordered By: Nolvia Salter Admission Data Admit Date/Time: 01/25/21 08:43 Attending Provider: Nolvia Salter Admit Provider: Reji Rangel Primary Care Provider: Ac Mcmanus Other Providers: Reji Rangel ; Kristopher Gonzales ; Baljit Colón ; Piter Cedeno Erica K. ; Quynh Haile ; Candie Yin ; Jaren Woodall Other Interventions: Discharge Summary Assessment (RN) Last Done: 02/01/21 11:29
== END 2021-02-01 13:52 | disposition home or self-care (01) | DRG 91 ==
LOC: ED 05:57 → EDINP 08:43 → SUATTDRO 08:43 → 2S 10:38 → 2W 01-29 16:27 → 2N 01-30 04:25

== ENCOUNTER 2021-04-08 02:28 | Inpatient (IN) ==
--- NOTE | 2021-04-08 03:08 | Emergency Department Note ---
History of Present Illness General Chief complaint: Altered Mental Status Stated complaint: ALTERED MENTAL STATUS Time Seen by Provider: 04/08/21 02:57 Source: EMS Mode of arrival: EMS Limitations: altered mental status History of Present Illness Provider complaint: ams, fall This is a 71-year-old female brought in by EMS after being found on the floor by family at their residence. Son states he last saw her at 4 AM yesterday morning. He states he did not think she went to her usual dialysis as scheduled. He was not sure per EMS report if the patient had otherwise recently felt ill or if there had been any change in her medications. Per prior records here, patient is anticoagulated on warfarin. EMS reports patient was somnolent, only responsive to painful stimuli. States son could not otherwise provide any additional history. Patient here is confused, repetitive, will not follow commands. Unable to provide any additional history. Review of EMR, patient with similar presentations previously. Patient has previously been admitted for infections, seizure-like activity, and noncompliance with medications. Pt seen during a time of high acuity and national emergency pandemic while wearing PPE. Home Medications Medication Instructions Recorded Confirmed Type aspirin 81 mg tablet,delayed 81 mg PO QAM 02/18/18 01/25/21 History release (Aspirin Low Dose) fluticasone propionate 50 1 spray INTRANASAL DAILY PRN 02/18/18 01/25/21 History mcg/actuation nasal spray,suspension (Flonase Allergy Relief) levothyroxine 25 mcg tablet 25 mcg PO QAM 02/18/18 04/08/21 History montelukast 10 mg tablet 10 mg PO HS 02/18/18 01/25/21 History (Singulair) sertraline 100 mg tablet (Zoloft) 150 mg PO QAM 02/18/18 04/08/21 History sevelamer carbonate 800 mg tablet 1,600 mg PO TIDM 03/26/19 04/08/21 History (Renvela) amlodipine 10 mg tablet (Norvasc) 10 mg PO QAM 03/23/20 04/08/21 History linagliptin 5 mg tablet (Tradjenta) 5 mg PO QAM 03/23/20 01/25/21 History nitroglycerin 0.4 mg sublingual 0.4 mg SUBLINGUAL UD PRN 03/23/20 01/25/21 History tablet (Nitrostat) furosemide 40 mg tablet 40 mg PO QAM 01/07/21 04/08/21 History ammonium lactate 12 % topical cream 1 applic TOPICAL DAILY PRN 01/25/21 01/25/21 History buspirone 5 mg tablet 5 mg PO BID 01/25/21 04/08/21 History cholecalciferol (vitamin D3) 25 25 mcg PO DAILY 01/25/21 01/25/21 History mcg (1,000 unit) capsule (Vitamin D3) epinephrine 0.3 mg/0.3 mL 0.3 mg IM Q4H PRN 01/25/21 01/25/21 History injection, auto-injector ipratropium 0.5 mg-albuterol 3 mg 3 ml INHALATION Q4H PRN 01/25/21 01/25/21 History (2.5 mg base)/3 mL nebulization soln ondansetron HCl 8 mg tablet 8 mg PO TID PRN 01/25/21 01/25/21 History metoprolol tartrate 25 mg tablet 25 mg PO BID #60 tab 02/01/21 Rx mirtazapine 15 mg tablet 15 mg PO HS PRN #30 tab 02/01/21 04/08/21 Rx DuoNeb 3 ml INHALATION QID 04/08/21 04/08/21 History albuterol sulfate 90 mcg/actuation 2 inh INHALATION Q4H PRN 04/08/21 04/08/21 History aerosol inhaler azelastine 137 mcg (0.1 %) nasal 2 spray INTRANASAL BID 04/08/21 04/08/21 History spray aerosol clopidogrel 75 mg tablet 75 mg PO DAILY 04/08/21 04/08/21 History fluticasone furoate 100 1 inh INHALATION DAILY 04/08/21 04/08/21 History mcg-vilanterol 25 mcg/dose inhalation powder (Breo Ellipta) hydralazine 25 mg tablet 50 mg PO HS 04/08/21 04/08/21 History loperamide 2 mg capsule 2 mg PO DAILY 04/08/21 04/08/21 History melatonin 3 mg PO HS 04/08/21 04/08/21 History ropinirole 0.25 mg tablet 0.5 mg PO HS 04/08/21 04/08/21 History Allergies Allergy/AdvReac Type Severity Reaction Status Date / Time bee venom protein (honey bee) Allergy Intermediate MOUTH Verified 01/25/21 07:40 SWELLING prednisone Allergy Intermediate SWELLING Verified 01/25/21 07:40 OG HANDS, ITCHING, RASH tomato Allergy Intermediate Hives Verified 01/25/21 07:40 Penicillins Allergy Mild RASH Verified 01/25/21 07:40 rosuvastatin Allergy Mild SEVERE H/A Verified 01/25/21 07:40 trazodone AdvReac Severe Confusion Verified 01/25/21 07:40 Fgibvxc-HNY-[id number] Reductase AdvReac Mild EFFECTED Verified 01/25/21 07:40 Inhibitor LIVER [Obensfd-Ncs-Vlx Reductase STUDIES Inhibitor] Past Med/Surg History Medical History Anemia Anxiety Asthma Uses albuterol daily. Atrial fibrillation FOLLOWED BY DR. CARROLL AV fistula Depression Diabetes mellitus, type 2 oral med End stage renal disease receiving hemodiaylsis Sunday//Saturdays in [place]. Follows Dr. Ramirez ([place], [place]). Endometriosis stage 4 GERD (gastroesophageal reflux disease) Hyperlipidemia Hypertension no medications currently - experiencing hypotension Hypothyroidism Kidney failure STAGE 4 NO DIALYSIS Migraine Myocardial Infarction 2007 Osteoarthritis Stroke X 2 2014 Surgical History History of abdominal surgery UMBILICAL MESH REMOVED (NECROTIC) History of adenoidectomy History of appendectomy History of martha hole surgery 2014 AFTER CVA TO "REMOVED FLUID" History of cardiac cath 2007 AT [facility], [place] History of cataract surgery RT/LEFT History of section X 3 History of cholecystectomy History of colonoscopy History of coronary artery bypass graft 2007 3 [facility] [place] History of esophagogastroduodenoscopy (EGD) History of herniorrhaphy X 3 REPAIRS History of surgery LEFT FOOT/ANKLE FX REPAIR S/P FALL (HARDWARE) History of tonsillectomy History of tooth extraction History of total abdominal hysterectomy and bilateral salpingo-oophorectomy History of total knee replacement LEFT Hx of hand surgery LEFT HAND SURGERY "TOOK BONES OUT" S/P arteriovenous (AV) fistula creation Left arm S/P panniculectomy Family History Brother Family history of diabetes mellitus Coronary heart disease Mother Family history of diabetes mellitus Other No family history of adverse response to anesthesia Social History Smoking Status: Unknown if ever smoked Tobacco Type: Cigarettes Cigarettes Per Day: 1; Second Hand Exposure: Yes; Hx Alcohol Use: No Hx Substance Use: Yes Last Used Substance: Hours (ago) Substance Use Type Other:: unable to respond Preferred Language: Lithuanian Communication Ability: Impaired Visual Impairment: No Limitations Event Set Up Specialist Required: No Beliefs That Will Affect Care: None Current Living Situation: Alone Feels Safe at Home: Yes Review of Systems See HPI for pertinent positives & negatives. Unobtainable due to cognitive status Physical Exam Vital Signs Vital Signs - 24 hr 04/08/21 06:15 04/08/21 06:30 04/08/21 06:45 Pulse Rate 77 67 Respiratory Rate 18 18 Blood Pressure 201/109 H 217/112 H 181/86 H Blood Pressure Mean 139 147 117 Pulse Oximetry 98 98 GENERAL: somnolent, ill appearing, well nourished, no distress, non-toxic HEAD: nc/at, mild periorbital edema noted bilaterally, no ecchymosis, no other obvious facial trauma EYE EXAM: normal conjunctiva, PERRL and EOM's grossly intact OROPHARYNX: no exudate, no erythema, lips, buccal mucosa, and tongue normal and mucous membranes are dry NECK: supple, no nuchal rigidity, no adenopathy, non-tender LUNGS: Clear to auscultation. Normal chest wall mechanics, no w/r/r HEART: no murmurs, S1 normal and S2 normal ABDOMEN: abdomen soft, non-tender, normo-active bowel sounds, no masses, no rebound or guarding. PELVIS: Stable to compression BACK: Back is symmetrical on inspection and there is no deformity, no midline tenderness, no CVA tenderness. SKIN: no rashes and no bruising UPPER EXTREMITIES: upper extremities are grossly normal. nml pulses b/l. Multiple contusions to forearms. Fistula noted left upper extremity, positive thrill and bruit. LOWER EXTREMITIES: No pitting edema. nml pulses b/l. Multiple contusions noted in various stages of healing. NEURO EXAM: somnolent, responds to painful stimuli with localization, eye opening, and verbal response repetitive upon wakening, will not follow commands, GCS 11 Course Administered Medications Albuterol (Albut/Ipratrop 3mg/0.5mg Neb 3 Ml Vial) 3 ml INH QIDR [facility] Stop: 05/08/21 12:59 Last Admin: 04/08/21 20:18 Dose: Not Given Documented by: [id number] Admin: 04/08/21 13:09 Dose: 3 ml Documented by: [id number] Azelastine HCl (Azelastine Hcl 0.1% Nasal 200 Sprays/27,400 Mcg Btl) 2 sprays NA BID [facility] Stop: 05/08/21 20:59 Last Admin: 04/08/21 21:51 Dose: Not Given Documented by: [id number] Buspirone HCl (Buspirone 5 Mg Tab) 5 mg PO BID [facility] Stop: 05/08/21 20:59 Last Admin: 04/08/21 20:19 Dose: Not Given Documented by: [id number] Heparin Sodium (Porcine) (Heparin Sod 5,000 Unit/0.5 Ml Vial) 5,000 units SQ Q8 [facility] Stop: 05/08/21 13:59 Last Admin: 04/09/21 04:56 Dose: 5,000 units Documented by: [id number] Admin: 04/08/21 20:21 Dose: 5,000 units Documented by: [id number] Admin: 04/08/21 18:31 Dose: Not Given Documented by: [id number] Hydralazine HCl (Hydralazine Tab 50 Mg Tab) 50 mg PO HS [facility] Stop: 05/08/21 20:59 Last Admin: 04/08/21 20:19 Dose: Not Given Documented by: [id number] Famotidine 20 mg/ Syringe 5 mls @ 2.5 mls/min IV BID [facility] Stop: 05/08/21 08:59 Last Admin: 04/08/21 20:21 Dose: 2.5 mls/min Documented by: [id number] Admin: 04/08/21 09:56 Dose: 2.5 mls/min Documented by: [id number] Levothyroxine Sodium (Levothyroxine Sodium 25 Mcg Tablet) 25 mcg PO DAILYBB [facility] Stop: 05/09/21 06:29 Last Admin: 04/09/21 04:56 Dose: 25 mcg Documented by: [id number] Metoprolol Tartrate (Metoprolol Tartrate 1 Mg/Ml Vial) 5 mg IV Q6 [facility] Stop: 05/08/21 11:59 Last Admin: 04/09/21 04:55 Dose: 5 mg Documented by: [id number] Admin: 04/08/21 23:12 Dose: 5 mg Documented by: [id number] Admin: 04/08/21 19:35 Dose: Not Given Documented by: [id number] Admin: 04/08/21 12:39 Dose: 5 mg Documented by: [id number] Montelukast Sodium (Montelukast Sodium 10 Mg Tablet) 10 mg PO HS [facility] Stop: 05/08/21 20:59 Last Admin: 04/08/21 20:19 Dose: Not Given Documented by: [id number] Ondansetron HCl (Ondansetron Inj 2 Mg/Ml 2 Ml Vial) 4 mg IV Q6H PRN PRN Reason: Nausea Stop: 05/08/21 07:52 Last Admin: 04/08/21 23:25 Dose: 4 mg Documented by: [id number] Ropinirole HCl (Ropinirole Hcl 0.25 Mg Tablet) 0.5 mg PO [facility] Stop: 05/09/21 05:24 Last Admin: 04/09/21 05:41 Dose: 0.5 mg Documented by: [id number] Sevelamer HCl (Sevelamer Hcl 800 Mg Tablet) 1,600 mg PO TIDM [facility] Stop: 05/08/21 11:59 Last Admin: 04/08/21 18:32 Dose: Not Given Documented by: [id number] Admin: 04/08/21 16:46 Dose: Not Given Documented by: [id number] Discontinued Medications Hydralazine HCl (Hydralazine Hcl 20 Mg/Ml Vial) 10 mg IV NOW STA Stop: 04/08/21 05:24 Last Admin: 04/08/21 05:33 Dose: 10 mg Documented by: [id number] Hydralazine HCl (Hydralazine Hcl 20 Mg/Ml Vial) 10 mg IV NOW STA Stop: 04/08/21 06:49 Last Admin: 04/08/21 08:10 Dose: 10 mg Documented by: [id number] Sodium Chloride (Nss 1000ml) 1,000 mls @ 50 mls/hr IV .Q20H [facility] Stop: 05/08/21 07:52 Last Infusion: 04/08/21 20:51 Dose: 0 mls/hr Documented by: [id number] Admin: 04/08/21 10:00 Dose: 50 mls/hr Documented by: [id number] Meropenem 500 mg/ Syringe 10 mls @ 2 mls/min IV NOW ONE; Protocol Stop: 04/08/21 09:04 Last Admin: 04/08/21 09:57 Dose: 2 mls/min Documented by: [id number] Lorazepam (Ativan) 0.5 mg in 1 mls @ 1 mls/min IV NOW STA Stop: 04/08/21 08:28 Last Admin: 04/08/21 09:57 Dose: 1 mls/min Documented by: [id number] Insulin Aspart (Insulin Aspart Per Unit) 0 units SC ACHS [facility] Stop: 05/08/21 07:52 Last Admin: 04/08/21 18:31 Dose: Not Given Documented by: [id number] Admin: 04/08/21 16:46 Dose: Not Given Documented by: [id number] Cosigned by: [id number] Admin: 04/08/21 10:00 Dose: Not Given Documented by: [id number] Cosigned by: [id number] Ioversol (Optiray 320 100ml) 94 ml IV ONCE ONE Stop: 04/08/21 04:13 Last Admin: 04/08/21 04:12 Dose: 1 ml Documented by: [id number] Naloxone HCl (Naloxone Hcl 0.4 Mg/1 Ml Vial/Carp) Confirm Administered Dose 0.4 mg .ROUTE .STK-MED ONE Stop: 04/08/21 12:43 Last Admin: 04/08/21 12:43 Dose: 0.4 mg Documented by: [id number] Critical Care Time Critical Care Time: Yes Total Critical Care Time: 55 Critical care of 55 min performed to assess and manage high likelihood of life- threatening ams and trauma, involving labs and imaging performed with assessment to evaluate ams diagnosis with frequent reassessment. This time includes bedside time, treatment discussions with patient/family/consultants, documentation time and excludes procedure time. Medical Decision Making Differential Diagnosis Differential diagnoses includes but is not limited to toxic, metabolic, infectious, traumatic, cardiac, neurologic, hematologic, psychiatric and inflammatory etiologies. Medical Records Attestation: I reviewed the patient's medical records. Home Medications Current Medication List: was personally reviewed by me Laboratory Data Attestation: I reviewed the patient's lab results. Result diagrams: 04/09/21 05:20 04/08/21 02:55 Lab Results 04/08/21 04/08/21 04/08/21 Range/Units 02:41 02:45 02:45 WBC (4.8-10.8) K/uL RBC (4.2-5.4) M/uL Hgb (12.0-16.0) g/dL POC Hgb (12.0-16.0) g/dl Hct (37-47) % POC Hct (37-47) % MCV (80-100) fL MCH (25-34) pg MCHC (32-36) g/dL RDW Std Deviation (36.4-46.3) fL RDW Coeff of Odilon (11.5-14.5) % Plt Count (130-400) K/uL MPV (7.4-10.4) fL Immature Gran % (Auto) % Neut % (Auto) % Lymph % (Auto) % [place] % (Auto) % Eos % (Auto) % Baso % (Auto) % Neut # (Auto) (1.4-6.5) K/uL Lymph # (Auto) (1.2-3.4) K/uL [place] # (Auto) (0.11-0.59) K/uL Eos # (Auto) (0-0.5) K/uL Baso # (Auto) (0-0.2) K/uL Immature Gran # (Auto) (0.00-0.02) K/uL PT (9.0-12.0) Seconds INR (0.9-1.1) ABG pH (7.35-7.45) ABG pCO2 (35-46) mmHg ABG pO2 (80-95) mmHg ABG HCO3 (19-24) mmol/L ABG O2 Saturation (90-95) % ABG Base Excess (-9-1.8) mEq/L Rocco Test (Pos) Barometric Pressure mm/Hg Oxygen Given POC Sodium (135-144) mmol/L Sodium (136-145) mmol/L POC Potassium (3.3-5.0) mmol/L Potassium (3.5-5.1) mmol/L POC Chloride (101-112) mmol/L Chloride (98-107) mmol/L Carbon Dioxide (21-32) mmol/L POC Total CO2 (24-31) mmol/L Anion Gap (3-11) POC Anion Gap (16-25) mmol/L POC BUN (7-18) mg/dl BUN (7-18) mg/dl Creatinine (0.6-1.2) mg/dl POC Creatinine (0.6-1.3) mg/dl Est Cr Clr Drug Dosing ml/min Est GFR ( Amer) ml/min Est GFR (Non-Af Amer) ml/min BUN/Creatinine Ratio (10-20) Glucose (70-99) mg/dl POC Glucose (other) (70-99) mg/dl Lactate (0.4-2.0) mmol/L Calcium (8.5-10.1) mg/dl POC Ioniz Calcium Aldo (1.12-1.32) mmol/l Total Bilirubin (0.2-1) mg/dl AST (15-37) U/L ALT (12-78) Alkaline Phosphatase (45-117) U/L Total Creatine Kinase (26-192) U/L Total Protein (6.4-8.2) gm/dl Albumin (3.4-5.0) gm/dl Globulin (2.5-4.0) gm/dl Albumin/Globulin Ratio (0.9-2) Urine Color Yellow Urine Appearance Clear (Clear) Urine pH 8.5 H (4.5-7.5) Ur Specific [place] 1.013 (1.000-1.030) Urine Protein 3+ H (Negative) Urine Glucose (UA) Trace H (Negative) Urine Ketones Negative (Negative) Urine Blood Trace H (Negative) Urine Nitrite Negative (Negative) Urine Bilirubin Negative (Negative) Urine Urobilinogen Negative (Negative) Ur Leukocyte Esterase Negative (Negative) Urine WBC (Auto) 0 (0-5) /hpf Urine RBC (Auto) 5-10 H (0-4) /hpf U Hyaline Cast (Auto) 0 (0-5) /lpf U Epithel Cells (Auto) 10-20 H (0-5) /lpf Urine Bacteria (Auto) Negative (Negative) Urine Opiates Screen Neg (Neg) Ur Methadone, Qual Neg (Neg) Urine Barbiturates Neg (Neg) Ur Phencyclidine (PCP) Neg (Neg) U Amphetamin/Meth Scrn Neg (Neg) MDMA (Ecstasy) Screen Neg (Neg) U Benzodiazepines Scrn Neg (Neg) Ur Cocaine Metabolite Neg (Neg) U Marijuana (THC) Screen Neg (Neg) Ethyl Alcohol mg/dL (0-3) mg/dl SARS-CoV-2 (PCR) NEGATIVE (Negative) Influenza Type A (PCR) Negative (Neg) Influenza Type B (PCR) Negative (Neg) RSV (RT-PCR) Negative (Neg) 04/08/21 04/08/21 04/08/21 Range/Units 02:55 02:55 02:55 WBC 11.47 H (4.8-10.8) K/uL RBC 3.91 L (4.2-5.4) M/uL Hgb 11.8 L (12.0-16.0) g/dL POC Hgb (12.0-16.0) g/dl Hct 37.0 (37-47) % POC Hct (37-47) % MCV 94.6 (80-100) fL MCH 30.2 (25-34) pg MCHC 31.9 L (32-36) g/dL RDW Std Deviation 49.6 H (36.4-46.3) fL RDW Coeff of Odilon 14.5 (11.5-14.5) % Plt Count 190 (130-400) K/uL MPV 10.5 H (7.4-10.4) fL Immature Gran % (Auto) 0.2 % Neut % (Auto) 83.0 % Lymph % (Auto) 12.6 % [place] % (Auto) 4.0 % Eos % (Auto) 0.1 % Baso % (Auto) 0.1 % Neut # (Auto) 9.52 H (1.4-6.5) K/uL Lymph # (Auto) 1.45 (1.2-3.4) K/uL [place] # (Auto) 0.46 (0.11-0.59) K/uL Eos # (Auto) 0.01 (0-0.5) K/uL Baso # (Auto) 0.01 (0-0.2) K/uL Immature Gran # (Auto) 0.02 (0.00-0.02) K/uL PT 9.9 (9.0-12.0) Seconds INR 1.0 (0.9-1.1) ABG pH (7.35-7.45) ABG pCO2 (35-46) mmHg ABG pO2 (80-95) mmHg ABG HCO3 (19-24) mmol/L ABG O2 Saturation (90-95) % ABG Base Excess (-9-1.8) mEq/L Rocco Test (Pos) Barometric Pressure mm/Hg Oxygen Given POC Sodium (135-144) mmol/L Sodium 138 (136-145) mmol/L POC Potassium (3.3-5.0) mmol/L Potassium 4.3 (3.5-5.1) mmol/L POC Chloride (101-112) mmol/L Chloride 104 (98-107) mmol/L Carbon Dioxide 28 (21-32) mmol/L POC Total CO2 (24-31) mmol/L Anion Gap 6.0 (3-11) POC Anion Gap (16-25) mmol/L POC BUN (7-18) mg/dl BUN 61 H (7-18) mg/dl Creatinine 4.70 H* (0.6-1.2) mg/dl POC Creatinine (0.6-1.3) mg/dl Est Cr Clr Drug Dosing 9.3 ml/min Est GFR ( Amer) 10.0 ml/min Est GFR (Non-Af Amer) 8.6 ml/min BUN/Creatinine Ratio 13.0 (10-20) Glucose 165 H (70-99) mg/dl POC Glucose (other) (70-99) mg/dl Lactate (0.4-2.0) mmol/L Calcium 9.7 (8.5-10.1) mg/dl POC Ioniz Calcium Aldo (1.12-1.32) mmol/l Total Bilirubin 0.9 (0.2-1) mg/dl AST 22 (15-37) U/L ALT 19 (12-78) Alkaline Phosphatase 116 (45-117) U/L Total Creatine Kinase (26-192) U/L Total Protein 7.8 (6.4-8.2) gm/dl Albumin 4.0 (3.4-5.0) gm/dl Globulin 3.8 (2.5-4.0) gm/dl Albumin/Globulin Ratio 1.1 (0.9-2) Urine Color Urine Appearance (Clear) Urine pH (4.5-7.5) Ur Specific [place] (1.000-1.030) Urine Protein (Negative) Urine Glucose (UA) (Negative) Urine Ketones (Negative) Urine Blood (Negative) Urine Nitrite (Negative) Urine Bilirubin (Negative) Urine Urobilinogen (Negative) Ur Leukocyte Esterase (Negative) Urine WBC (Auto) (0-5) /hpf Urine RBC (Auto) (0-4) /hpf U Hyaline Cast (Auto) (0-5) /lpf U Epithel Cells (Auto) (0-5) /lpf Urine Bacteria (Auto) (Negative) Urine Opiates Screen (Neg) Ur Methadone, Qual (Neg) Urine Barbiturates (Neg) Ur Phencyclidine (PCP) (Neg) U Amphetamin/Meth Scrn (Neg) MDMA (Ecstasy) Screen (Neg) U Benzodiazepines Scrn (Neg) Ur Cocaine Metabolite (Neg) U Marijuana (THC) Screen (Neg) Ethyl Alcohol mg/dL (0-3) mg/dl SARS-CoV-2 (PCR) (Negative) Influenza Type A (PCR) (Neg) Influenza Type B (PCR) (Neg) RSV (RT-PCR) (Neg) 04/08/21 04/08/21 04/08/21 Range/Units 02:55 02:55 03:02 WBC (4.8-10.8) K/uL RBC (4.2-5.4) M/uL Hgb (12.0-16.0) g/dL POC Hgb 12.6 (12.0-16.0) g/dl Hct (37-47) % POC Hct 37 (37-47) % MCV (80-100) fL MCH (25-34) pg MCHC (32-36) g/dL RDW Std Deviation (36.4-46.3) fL RDW Coeff of Odilon (11.5-14.5) % Plt Count (130-400) K/uL MPV (7.4-10.4) fL Immature Gran % (Auto) % Neut % (Auto) % Lymph % (Auto) % [place] % (Auto) % Eos % (Auto) % Baso % (Auto) % Neut # (Auto) (1.4-6.5) K/uL Lymph # (Auto) (1.2-3.4) K/uL [place] # (Auto) (0.11-0.59) K/uL Eos # (Auto) (0-0.5) K/uL Baso # (Auto) (0-0.2) K/uL Immature Gran # (Auto) (0.00-0.02) K/uL PT (9.0-12.0) Seconds INR (0.9-1.1) ABG pH (7.35-7.45) ABG pCO2 (35-46) mmHg ABG pO2 (80-95) mmHg ABG HCO3 (19-24) mmol/L ABG O2 Saturation (90-95) % ABG Base Excess (-9-1.8) mEq/L Rocco Test (Pos) Barometric Pressure mm/Hg Oxygen Given POC Sodium 140 (135-144) mmol/L Sodium (136-145) mmol/L POC Potassium 4.4 (3.3-5.0) mmol/L Potassium (3.5-5.1) mmol/L POC Chloride 103 (101-112) mmol/L Chloride (98-107) mmol/L Carbon Dioxide (21-32) mmol/L POC Total CO2 28 (24-31) mmol/L Anion Gap (3-11) POC Anion Gap 14.0 L (16-25) mmol/L POC BUN 58 H (7-18) mg/dl BUN (7-18) mg/dl Creatinine (0.6-1.2) mg/dl POC Creatinine 4.5 H (0.6-1.3) mg/dl Est Cr Clr Drug Dosing ml/min Est GFR ( Amer) ml/min Est GFR (Non-Af Amer) ml/min BUN/Creatinine Ratio (10-20) Glucose (70-99) mg/dl POC Glucose (other) 167 H (70-99) mg/dl Lactate 1.5 (0.4-2.0) mmol/L Calcium (8.5-10.1) mg/dl POC Ioniz Calcium Aldo 1.19 (1.12-1.32) mmol/l Total Bilirubin (0.2-1) mg/dl AST (15-37) U/L ALT (12-78) Alkaline Phosphatase (45-117) U/L Total Creatine Kinase 183 (26-192) U/L Total Protein (6.4-8.2) gm/dl Albumin (3.4-5.0) gm/dl Globulin (2.5-4.0) gm/dl Albumin/Globulin Ratio (0.9-2) Urine Color Urine Appearance (Clear) Urine pH (4.5-7.5) Ur Specific [place] (1.000-1.030) Urine Protein (Negative) Urine Glucose (UA) (Negative) Urine Ketones (Negative) Urine Blood (Negative) Urine Nitrite (Negative) Urine Bilirubin (Negative) Urine Urobilinogen (Negative) Ur Leukocyte Esterase (Negative) Urine WBC (Auto) (0-5) /hpf Urine RBC (Auto) (0-4) /hpf U Hyaline Cast (Auto) (0-5) /lpf U Epithel Cells (Auto) (0-5) /lpf Urine Bacteria (Auto) (Negative) Urine Opiates Screen (Neg) Ur Methadone, Qual (Neg) Urine Barbiturates (Neg) Ur Phencyclidine (PCP) (Neg) U Amphetamin/Meth Scrn (Neg) MDMA (Ecstasy) Screen (Neg) U Benzodiazepines Scrn (Neg) Ur Cocaine Metabolite (Neg) U Marijuana (THC) Screen (Neg) Ethyl Alcohol mg/dL (0-3) mg/dl SARS-CoV-2 (PCR) (Negative) Influenza Type A (PCR) (Neg) Influenza Type B (PCR) (Neg) RSV (RT-PCR) (Neg) 04/08/21 04/08/21 Range/Units 03:03 04:47 WBC (4.8-10.8) K/uL RBC (4.2-5.4) M/uL Hgb (12.0-16.0) g/dL POC Hgb (12.0-16.0) g/dl Hct (37-47) % POC Hct (37-47) % MCV (80-100) fL MCH (25-34) pg MCHC (32-36) g/dL RDW Std Deviation (36.4-46.3) fL RDW Coeff of Odilon (11.5-14.5) % Plt Count (130-400) K/uL MPV (7.4-10.4) fL Immature Gran % (Auto) % Neut % (Auto) % Lymph % (Auto) % [place] % (Auto) % Eos % (Auto) % Baso % (Auto) % Neut # (Auto) (1.4-6.5) K/uL Lymph # (Auto) (1.2-3.4) K/uL [place] # (Auto) (0.11-0.59) K/uL Eos # (Auto) (0-0.5) K/uL Baso # (Auto) (0-0.2) K/uL Immature Gran # (Auto) (0.00-0.02) K/uL PT (9.0-12.0) Seconds INR (0.9-1.1) ABG pH 7.35 (7.35-7.45) ABG pCO2 43 (35-46) mmHg ABG pO2 75 L (80-95) mmHg ABG HCO3 24 (19-24) mmol/L ABG O2 Saturation 95.2 H (90-95) % ABG Base Excess -1.9 (-9-1.8) mEq/L [place] Test Neg A (Pos) Barometric Pressure 728.2 mm/Hg Oxygen Given ROOM AIR POC Sodium (135-144) mmol/L Sodium (136-145) mmol/L POC Potassium (3.3-5.0) mmol/L Potassium (3.5-5.1) mmol/L POC Chloride (101-112) mmol/L Chloride (98-107) mmol/L Carbon Dioxide (21-32) mmol/L POC Total CO2 (24-31) mmol/L Anion Gap (3-11) POC Anion Gap (16-25) mmol/L POC BUN (7-18) mg/dl BUN (7-18) mg/dl Creatinine (0.6-1.2) mg/dl POC Creatinine (0.6-1.3) mg/dl Est Cr Clr Drug Dosing ml/min Est GFR ( Amer) ml/min Est GFR (Non-Af Amer) ml/min BUN/Creatinine Ratio (10-20) Glucose (70-99) mg/dl POC Glucose (other) (70-99) mg/dl Lactate (0.4-2.0) mmol/L Calcium (8.5-10.1) mg/dl POC Ioniz Calcium [place] (1.12-1.32) mmol/l Total Bilirubin (0.2-1) mg/dl AST (15-37) U/L ALT (12-78) Alkaline Phosphatase (45-117) U/L Total Creatine Kinase (26-192) U/L Total Protein (6.4-8.2) gm/dl Albumin (3.4-5.0) gm/dl Globulin (2.5-4.0) gm/dl Albumin/Globulin Ratio (0.9-2) Urine Color Urine Appearance (Clear) Urine pH (4.5-7.5) Ur Specific [place] (1.000-1.030) Urine Protein (Negative) Urine Glucose (UA) (Negative) Urine Ketones (Negative) Urine Blood (Negative) Urine Nitrite (Negative) Urine Bilirubin (Negative) Urine Urobilinogen (Negative) Ur Leukocyte Esterase (Negative) Urine WBC (Auto) (0-5) /hpf Urine RBC (Auto) (0-4) /hpf U Hyaline Cast (Auto) (0-5) /lpf U Epithel Cells (Auto) (0-5) /lpf Urine Bacteria (Auto) (Negative) Urine Opiates Screen (Neg) Ur Methadone, Qual (Neg) Urine Barbiturates (Neg) Ur Phencyclidine (PCP) (Neg) U Amphetamin/Meth Scrn (Neg) MDMA (Ecstasy) Screen (Neg) U Benzodiazepines Scrn (Neg) Ur Cocaine Metabolite (Neg) U Marijuana (THC) Screen (Neg) Ethyl Alcohol mg/dL < 3.0 (0-3) mg/dl SARS-CoV-2 (PCR) (Negative) Influenza Type A (PCR) (Neg) Influenza Type B (PCR) (Neg) RSV (RT-PCR) (Neg) Imaging Data Radiologist's Impression: Abdomen/Pelvis CT 04/08/21 02:57 CT OF THE ABDOMEN AND PELVIS WITH CONTRAST CLINICAL HISTORY: Trauma. COMPARISON STUDY: CT of the abdomen and pelvis July 02, 2017. Right upper quadrant ultrasound April 19, 2018. TECHNIQUE: Following IV administration of 94 mL of Optiray, axial images of the abdomen and pelvis were obtained from the lung bases to the proximal femurs. Images were reviewed in the axial, sagittal, and coronal planes. IV contrast was administered without complication. Automated exposure control was utilized for the study. A dose lowering technique was utilized adhering to the principles of ALARA. FINDINGS: Please note that the chest CT will be reported separately. No hemoperitoneum or pneumoperitoneum is present. There is no evidence for traumatic injury to the liver, spleen, adrenal glands, kidneys or pancreas. Mild dilatation of the common bile duct is similar to prior ultrasound and likely related to cholecystectomy. There is no evidence for a bowel obstruction. Ventral hernia repair with mesh is noted. There is no lymphadenopathy. Meade balloon within the bladder is present. No acute lumbar spine or pelvic fracture is identified. Several right rib fractures are incidentally noted. There is no hydronephrosis. Hypodense bilateral renal lesions are too small to characterize but favor cysts. IMPRESSION: No acute traumatic findings within the abdomen or pelvis. ACT 112: Negative or not required by law. Electronically signed by: Herman Ruggiero M.D. 04/08/2021 6:[address] 04/08/21 02:57 CT cervical spine wo con CLINICAL HISTORY: Patient found on floor. Neck pain. COMPARISON STUDY: 01/06/2021 CT DOSE: TECHNIQUE: Standard CT of the Cervical Spine was performed without IV contrast. A dose lowering technique was utilized adhering to the principles of ALARA. FINDINGS: Bones: The bones are osteopenic. There is straightening of expected cervical lordosis related to degenerative change. There is no evidence for an acute fracture or malalignment. The heights of the vertebral bodies are maintained. The vertebral bodies are in anatomic alignment. The odontoid is intact. Degenerative changes are seen at the atlantoaxial articulation. Disc spaces:There is moderate to marked disc space narrowing present from C4 through C7 with endplate sclerosis and osteophyte formation. Apophyseal joints:Degenerative apophyseal joint disease is also present bilaterally, left greater than right Soft tissues:The prevertebral soft tissues are within normal limits. IMPRESSION: Osteopenia with no acute osseous pathology. Degenerative disc and degenerative joint disease are again seen. ACT 112: Negative or not required by law. Electronically signed by: Emiliano Byrnes M.D. 04/08/2021 8:[address] 04/08/21 02:57 CT chest diagnostic w con CLINICAL HISTORY: Patient found on the floor. Pain. COMPARISON STUDY: 05/10/2015 CT DOSE: 2224.61 mGy.cm TECHNIQUE: Standard CT of the Chest was performed with IV contrast. A dose lowering technique was utilized adhering to the principles of ALARA. Contrast Volume: Optiray 320, 94 ml FINDINGS: Airway: The airway is clear. No endobronchial lesion is identified. Lungs: The lungs are clear of acute alveolar opacities, air bronchograms or p ulmonary nodules. Pleura: There is no evidence for pleural effusion. There is no evidence for pneumothorax. Mediastinum: There is no evidence for pathologic adenopathy. Heart size is again mildly enlarged status post previous cardiothoracic surgery. The thoracic aorta is within normal limits. Mild atherosclerotic calcification is seen involving t he aortic arch and origin of the great vessels. There is no evidence for pericardial effusion. Upper abdomen: The adrenal glands are normal bilaterally. Osseous structures: There is no acute osseous pathology. IMPRESSION: No acute chest disease. Mild cardiomegaly status post previous cardiothoracic surgery is again seen. ACT 112: Negative or not required by law. Electronically signed by: Emiliano Byrnes M.D. 04/08/2021 8:[address] 04/08/21 02:57 CT OF THE HEAD WITHOUT CONTRAST CLINICAL HISTORY: trauma COMPARISON STUDY: MRI of the brain January 25, 2021. Head CT January 30, 2021. TECHNIQUE: Helical axial images of the head were obtained without IV contrast. Automated exposure control was utilized for the study. A dose lowering technique was utilized adhering to the principles of ALARA. FINDINGS: No acute intracranial hemorrhage, midline shift or mass effect is present. White matter hypodensity suggests small vessel disease. The ventricular system is unremarkable. The basal cisterns are patent. No extra-axial collections are present. There are no findings to suggest acute dural sinus thrombosis or acute territorial infarct. No significant calvarial abnormalities are present. Visualized portions of the sinuses and mastoid air cells are clear. IMPRESSION: 1. No acute intracranial findings. 2. No calvarial fracture. ACT 112: Negative or not required by law. Electronically signed by: Herman Ruggiero M.D. 04/08/2021 6:[address] head: No intracranial hemorrhage, mass-effect or midline shift per there is no abnormal extra-axial fluid collection. No evidence of acute infarct. Mild periventricular white matter hypodensities are most consistent with chronic microangiopathy. The visualized paranasal sinuses and mastoid air cells are clear. No fracture. Radiologist: Shanae Thompson MD CT C-spine: No fracture or malalignment. No prevertebral soft tissue swelling. There are degenerative changes of the spine. Radiologist: Shanae Thompson MD CT chest with contrast: The lungs are clear. Heart size is normal. No pathologically enlarged lymph nodes. No pathologically enlarged lymph nodes. No fracture. Radiologist: Shanae Thompson MD CT abdomen and pelvis with contrast: The solid organs are within normal limits. No obstruction. Cholecystectomy. No fracture. Radiologist: Shanae Thompson MD ECG Data Attestation: I personally reviewed and interpreted this ECG as follows: Indication: + altered mental status Rate (beats per minute): 69 Rhythm: + normal sinus ECG Intervals/blocks: + Normal QRS and + Normal QT ECG [place]: + Normal ECG ST segments: + Normal ST segments MDM Narrative This is a 71-year-old female brought in by EMS for altered mental status and concern for occult trauma. Patient had last been seen well nearly 24 hours prior. Patient with complicated past medical history. Patient would respond to loud verbal and painful stimuli, however unable to provide any coherent history or follow commands. IV access established labs obtained and patient sent urgently for trauma scans as last record here show patient was anticoagulated and given unknown history, altered mental status, and evidence of multiple contusions at various sites on physical exam, I had concern for additional occult traumatic injury including head trauma. Labs with mild leukocytosis noted, otherwise reassuring. ABG added which was also reassuring. Negative lactic acid. Patient's medical alcohol and UDS negative in addition. Patient continued to be hypertensive after initial evaluation. She was given IV hydralazine as medical records show she was previously taking hydralazine orally. Is unclear if patient has been compliant with her regular medications. We did some to contact the son but were unsuccessful. No family presented to bedside while patient was in the emergency room to my knowledge. Case discussed with hospitalist for additional evaluation and management. It is unclear yet of patient could have additional undiagnosed infection, toxidrome, hypertensive encephalopathy, occult CVA, seizure disorder, or noncompliance with medications. No evidence of significant acidosis, hyperkalemia, or known overdose to warrant emergent dialysis at this time. An order was placed for continuous cardiac monitoring. The monitor shows a rate of __72_ with _normal sinus_ rhythm. Impression & Plan Altered mental status, Hypertension, CKD (chronic kidney disease), Fall, Contusion of multiple sites Discharge Plan Visit Data Chief Complaint: Altered Mental Status Stated Complaint: ALTERED MENTAL STATUS ED Provider: Wendy Mahan Discharge Problem: Altered mental status, Hypertension, CKD (chronic kidney disease), Fall, Contusion of multiple sites Patient Disposition: Admitted As Inpatient Discharge Instructions Interventions: ED Discharge Assessment Last Done: 04/08/21 07:52
[2021-04-08 03:14] LABS: iSTAT Creatinine 4.5 mg/dl (0.6-1.3); iSTAT Hemoglobin 12.6 g/dl (12.0-16.0); iSTAT Ionized Calcium 1.19 mmol/l (1.12-1.32); iSTAT Potassium 4.4 mmol/L (3.3-5.0)
[2021-04-08 03:18] LABS: Basophils # (auto) 0.01 K/uL (0-0.2); Basophils % (auto) 0.1 %; Eosinophils # (auto) 0.01 K/uL (0-0.5); Eosinophils % (auto) 0.1 %; Hemoglobin 11.8 g/dL (12.0-16.0); Immature Granulocytes # (auto) 0.02 K/uL (0.00-0.02); Immature Granulocytes % (auto) 0.2 %; Lymphocytes # (auto) 1.45 K/uL (1.2-3.4); Lymphocytes % (auto) 12.6 %; Mean Corpuscular Hemoglobin 30.2 pg (25-34); Mean Corpuscular Hgb Conc 31.9 g/dL (32-36); Mean Corpuscular Volume 94.6 fL (80-100); Mean Platelet Volume 10.5 fL (7.4-10.4); Monocytes # (auto) 0.46 K/uL (0.11-0.59); Neutrophils # (auto) 9.52 K/uL (1.4-6.5); Platelet Count 190 K/uL (130-400); RDW Coefficient of Variation 14.5 % (11.5-14.5); RDW Standard Deviation 49.6 fL (36.4-46.3); Red Blood Count 3.91 M/uL (4.2-5.4); White Blood Count 11.47 K/uL (4.8-10.8)
[2021-04-08 03:26] LABS: Prothrombin Time 9.9 Seconds (9.0-12.0)
[2021-04-08 03:53] LABS: Albumin Globulin Ratio 1.1 (0.9-2); Bilirubin,Total 0.9 mg/dl (0.2-1); Calcium 9.7 mg/dl (8.5-10.1); Creatinine Clr Calc Pharmacy 9.3 ml/min; Est GFR (Non-African American) 8.6 ml/min; Globulin 3.8 gm/dl (2.5-4.0); Potassium 4.3 mmol/L (3.5-5.1); Total Protein 7.8 gm/dl (6.4-8.2)
[2021-04-08] MEDS ORDERED: OPTIRAY 320 100ml IV ONE (04:12)
[2021-04-08 04:41] LABS: Appearance Urine Clear (Clear); Bacteria Urine Automated Negative (Negative); Bilirubin Urine Negative (Negative); Blood Urine Trace (Negative); Cast Urine Automated 0 /lpf (0-5); Color Urine Yellow; Glucose Urine UA Trace (Negative); Ketones Urine Negative (Negative); Leukocyte Esterase Urine Negative (Negative); Nitrite Urine Negative (Negative); Specific Gravity Urine 1.013 (1.000-1.030); Urobilinogen Urine Negative (Negative); WBC Urine Automated 0 /hpf (0-5); pH Urine 8.5 (4.5-7.5)
[2021-04-08 04:43] LABS: Protein Urine 3+ (Negative)
[2021-04-08 05:03] LABS: Base Excess ABG -1.9 mEq/L (-9-1.8); HCO3 ABG 24 mmol/L (19-24); Oxygen Saturation ABG 95.2 % (90-95); PCO2 ABG 43 mmHg (35-46); PO2 ABG 75 mmHg (80-95); pH ABG 7.35 (7.35-7.45)
[2021-04-08 05:04] LABS: Amphetamines+Metham, Urine Neg (Neg); Barbiturates, Urine Neg (Neg); Benzodiazepine, Urine Neg (Neg); Cocaine, Urine Neg (Neg); MDMA (Ecstacy), Urine Neg (Neg); Methadone, Urine Neg (Neg); Opiate, Urine Neg (Neg); Phencyclidine, Urine Neg (Neg)
[2021-04-08 05:15] LABS: Allen Test Neg (Pos)
[2021-04-08] MEDS ORDERED: hydrALAZINE HCL 20 MG/ML VIAL IV STA ×2 (05:23→06:48)
[2021-04-08 06:20] LABS: Influenza A virus by PCR Negative (Neg); Influenza B virus by PCR Negative (Neg); RSV by PCR Negative (Neg); SARS CoV2 RNA(COVID-19) InHosp NEGATIVE (Negative)
--- NOTE | 2021-04-08 06:26 | CT Scan Report ---
CT OF THE HEAD WITHOUT CONTRAST CLINICAL HISTORY: trauma COMPARISON STUDY: MRI of the brain January 25, 2021. Head CT January 30, 2021. TECHNIQUE: Helical axial images of the head were obtained without IV contrast. Automated exposure con trol was utilized for the study. A dose lowering technique was utilized adhering to the principles o f ALARA. FINDINGS: No acute intracranial hemorrhage, midline shift or mass effect is present. White matter hyp odensity suggests small vessel disease. The ventricular system is unremarkable. The basal cisterns ar e patent. No extra-axial collections are present. There are no findings to suggest acute dural sinus thrombosis or acute territorial infarct. No significant calvarial abnormalities are present. Visualiz ed portions of the sinuses and mastoid air cells are clear. IMPRESSION: 1. No acute intracranial findings. 2. No calvarial fracture. ACT 112: Negative or not required by law. Electronically signed by: Herman Ruggiero M.D. 04/08/2021 6:25 AM
--- NOTE | 2021-04-08 06:33 | CT Scan Report ---
CT OF THE ABDOMEN AND PELVIS WITH CONTRAST CLINICAL HISTORY: Trauma. COMPARISON STUDY: CT of the abdomen and pelvis July 02, 2017. Right upper quadrant ultrasound 2018. TECHNIQUE: Following IV administration of 94 mL of Optiray, axial images of the abdomen and pelvis we re obtained from the lung bases to the proximal femurs. Images were reviewed in the axial, sagittal, and coronal planes. IV contrast was administered without complication. Automated exposure control wa s utilized for the study. A dose lowering technique was utilized adhering to the principles of ALARA . FINDINGS: Please note that the chest CT will be reported separately. No hemoperitoneum or pneumoperit oneum is present. There is no evidence for traumatic injury to the liver, spleen, adrenal glands, kid neys or pancreas. Mild dilatation of the common bile duct is similar to prior ultrasound and likely r elated to cholecystectomy. There is no evidence for a bowel obstruction. Ventral hernia repair with m esh is noted. There is no lymphadenopathy. Meade balloon within the bladder is present. No acute lumb ar spine or pelvic fracture is identified. Several right rib fractures are incidentally noted. There is no hydronephrosis. Hypodense bilateral renal lesions are too small to characterize but favor cysts . IMPRESSION: No acute traumatic findings within the abdomen or pelvis. ACT 112: Negative or not required by law. Electronically signed by: Herman Ruggiero M.D. 04/08/2021 6:31 AM
[2021-04-08] MEDS ORDERED: hydrALAZINE HCL 20 MG/ML VIAL IV PRN (06:48)
[2021-04-08] MEDS ORDERED: MEROPENEM CONSULT ACTIVE PRN (07:53)
[2021-04-08] MEDS ORDERED: ONDANSETRON INJ 2 MG/ML 2 ML VIAL IV PRN (07:53)
[2021-04-08] MEDS ORDERED: SODIUM CHLORIDE 0.9% 1000ML 1,000 ML IV SCH (07:53)
[2021-04-08] MEDS ORDERED: NITROGLYCERIN SL 0.4 MG/TAB TAB SL PRN ×2 (07:53→10:57)
--- NOTE | 2021-04-08 08:11 | CT Scan Report ---
CT cervical spine wo con CLINICAL HISTORY: Patient found on floor. Neck pain. COMPARISON STUDY: 01/06/2021 CT DOSE: TECHNIQUE: Standard CT of the Cervical Spine was performed without IV contrast. A dose lowering te chnique was utilized adhering to the principles of ALARA. FINDINGS: Bones: The bones are osteopenic. There is straightening of expected cervical lordosis related to dege nerative change. There is no evidence for an acute fracture or malalignment. The heights of the verte bral bodies are maintained. The vertebral bodies are in anatomic alignment. The odontoid is intact. D egenerative changes are seen at the atlantoaxial articulation. Disc spaces:There is moderate to marked disc space narrowing present from C4 through C7 with endplate sclerosis and osteophyte formation. Apophyseal joints:Degenerative apophyseal joint disease is also present bilaterally, left greater jarred n right Soft tissues:The prevertebral soft tissues are within normal limits. IMPRESSION: Osteopenia with no acute osseous pathology. Degenerative disc and degenerative joint dise ase are again seen. ACT 112: Negative or not required by law. Electronically signed by: Emiliano Byrnes M.D. 04/08/2021 8:09 AM
--- NOTE | 2021-04-08 08:16 | CT Scan Report ---
CT chest diagnostic w con CLINICAL HISTORY: Patient found on the floor. Pain. COMPARISON STUDY: 05/10/2015 CT DOSE: 2224.61 mGy.cm TECHNIQUE: Standard CT of the Chest was performed with IV contrast. A dose lowering technique was u tilized adhering to the principles of ALARA. Contrast Volume: Optiray 320, 94 ml FINDINGS: Airway: The airway is clear. No endobronchial lesion is identified. Lungs: The lungs are clear of acute alveolar opacities, air bronchograms or pulmonary nodules. Pleura: There is no evidence for pleural effusion. There is no evidence for pneumothorax. Mediastinum: There is no evidence for pathologic adenopathy. Heart size is again mildly enlarged stat us post previous cardiothoracic surgery. The thoracic aorta is within normal limits. Mild atheroscler otic calcification is seen involving the aortic arch and origin of the great vessels. There is no praful dence for pericardial effusion. Upper abdomen: The adrenal glands are normal bilaterally. Osseous structures: There is no acute osseous pathology. IMPRESSION: No acute chest disease. Mild cardiomegaly status post previous cardiothoracic surgery is again seen. ACT 112: Negative or not required by law. Electronically signed by: Emiliano Byrnes M.D. 04/08/2021 8:15 AM
[2021-04-08] MEDS ORDERED: LORazepam 0.5 MG/1 ML VIAL IV STA (08:27)
[2021-04-08] MEDS ORDERED: MEROPENEM 500 MG in SYRINGE 0 ML IV ONE (09:00)
--- NOTE | 2021-04-08 09:43 | Nephrology Consultation ---
Date of Consultation April 08, 2021 Assessment & Plan (1) End stage renal disease: ESRD on hemodialysis Not known when she was last dialyzed. Does not appear to be fluid overloaded. Electrolytes are in normal range. We will dialyze her today for 3-1/2 hours, 1 to 1.5 L UF. 2K 2 calcium No Heparin to be used Blood pressure is raised. Please continue on home medication if possible Continue on IV hydralazine, can add IV labetalol if needed. Component of agitation driving her blood pressure high. (2) Altered mental status: Unlikely related to HD. BUN is not grossly elevated. - Investigated by primary. History of Present Illness Reason for Consultation: ESRD on hemodialysis Attending Physician: Jeffry Holder MD History of Present Illness Patient is altered. History as per previous H&P and emergency notes. 71-year-old female significant past medical history of CAD s/p CABG ESRD, Sunday, type 2 diabetes, hypertension, hyperlipidemia, histor y of marijuana use, hypothyroidism, AF presented to the ER with altered mental status. As per emergency department notes, she was found on the floor by family. Per EMS patient was somnolent only responsive to painful stimuli. On review he appears to be dry, confused unable to give any history.Kennedy trauma CT does not show any acute injury Allergies Allergy/AdvReac Type Severity Reaction Status Date / Time bee venom protein (honey bee) Allergy Intermediate MOUTH Verified 01/25/21 07:40 SWELLING prednisone Allergy Intermediate SWELLING Verified 01/25/21 07:40 OG HANDS, ITCHING, RASH tomato Allergy Intermediate Hives Verified 01/25/21 07:40 Penicillins Allergy Mild RASH Verified 01/25/21 07:40 rosuvastatin Allergy Mild SEVERE H/A Verified 01/25/21 07:40 trazodone AdvReac Severe Confusion Verified 01/25/21 07:40 [id number] Reductase AdvReac Mild EFFECTED Verified 01/25/21 07:40 Inhibitor LIVER [[id number]-Ima Reductase STUDIES Inhibitor] Home Medications Medication Instructions Recorded Confirmed Type albuterol sulfate 90 mcg/actuation 2 puff INHALATION QID PRN 02/18/18 01/25/21 History breath activated powder inhaler (ProAir RespiClick) aspirin 81 mg tablet,delayed 81 mg PO QAM 02/18/18 01/25/21 History release (Aspirin Low Dose) azelastine 205.5 mcg (0.15 %) 1 spray INTRANASAL QAM 02/18/18 04/08/21 History nasal spray fluticasone propionate 50 1 spray INTRANASAL DAILY PRN 02/18/18 01/25/21 History mcg/actuation nasal spray,suspension (Flonase Allergy Relief) levothyroxine 25 mcg tablet 25 mcg PO QAM 02/18/18 04/08/21 History montelukast 10 mg tablet 10 mg PO HS 02/18/18 01/25/21 History (Singulair) sertraline 100 mg tablet (Zoloft) 150 mg PO QAM 02/18/18 04/08/21 History sevelamer carbonate 800 mg tablet 1,600 mg PO TIDM 03/26/19 04/08/21 History (Renvela) amlodipine 10 mg tablet (Norvasc) 10 mg PO QAM 03/23/20 04/08/21 History linagliptin 5 mg tablet (Tradjenta) 5 mg PO QAM 03/23/20 01/25/21 History nitroglycerin 0.4 mg sublingual 0.4 mg SUBLINGUAL UD PRN 03/23/20 01/25/21 History tablet (Nitrostat) furosemide 40 mg tablet 40 mg PO QAM 01/07/21 04/08/21 History ammonium lactate 12 % topical cream 1 applic TOPICAL DAILY PRN 01/25/21 01/25/21 History buspirone 5 mg tablet 5 mg PO BID 01/25/21 04/08/21 History cholecalciferol (vitamin D3) 25 25 mcg PO DAILY 01/25/21 01/25/21 History mcg (1,000 unit) capsule (Vitamin D3) cyclobenzaprine 5 mg tablet 5 mg PO UD 01/25/21 01/25/21 History epinephrine 0.3 mg/0.3 mL 0.3 mg IM Q4H PRN 01/25/21 01/25/21 History injection, auto-injector fluticasone furoate 100 1 inh INHALATION BID 01/25/21 01/25/21 History mcg-vilanterol 25 mcg/dose inhalation powder (Breo Ellipta) ipratropium 0.5 mg-albuterol 3 mg 3 ml INHALATION Q4H PRN 01/25/21 01/25/21 History (2.5 mg base)/3 mL nebulization soln ondansetron HCl 8 mg tablet 8 mg PO TID PRN 01/25/21 01/25/21 History potassium gluconate 600 mg (99 mg) 600 mg PO DAILY 01/25/21 01/25/21 History tablet metoprolol tartrate 25 mg tablet 25 mg PO BID #60 tab 02/01/21 Rx mirtazapine 15 mg tablet 15 mg PO HS PRN #30 tab 02/01/21 04/08/21 Rx warfarin 5 mg tablet 5 mg PO DAILY@1600 #30 tab 02/01/21 Rx albuterol sulfate 90 mcg/actuation 2 inh INHALATION Q4H PRN 04/08/21 04/08/21 History aerosol inhaler hydralazine 25 mg tablet 25 mg PO BID 04/08/21 04/08/21 History loperamide 2 mg capsule 2 mg PO DAILY 04/08/21 04/08/21 History ropinirole 0.25 mg tablet 0.25 mg PO BID 04/08/21 04/08/21 History Patient History Medical History Anemia Anxiety Asthma Uses albuterol daily. Atrial fibrillation FOLLOWED BY DR. CARROLL AV fistula Depression Diabetes mellitus, type 2 oral med End stage renal disease receiving hemodiaylsis Sunday//Saturdays in [place]. Follows Dr. Ramirez ([place], [place]). Endometriosis stage 4 GERD (gastroesophageal reflux disease) Hyperlipidemia Hypertension no medications currently - experiencing hypotension Hypothyroidism Kidney failure STAGE 4 NO DIALYSIS Migraine Myocardial Infarction 2007 Osteoarthritis Stroke X 2 2014 Surgical History History of abdominal surgery UMBILICAL MESH REMOVED (NECROTIC) History of adenoidectomy History of appendectomy History of martha hole surgery 2014 AFTER CVA TO "REMOVED FLUID" History of cardiac cath 2007 AT [facility] History of cataract surgery RT/LEFT History of section X 3 History of cholecystectomy History of colonoscopy History of coronary artery bypass graft 2008 3 [facility] [place] History of esophagogastroduodenoscopy (EGD) History of herniorrhaphy X 3 REPAIRS History of surgery LEFT FOOT/ANKLE FX REPAIR S/P FALL (HARDWARE) History of tonsillectomy History of tooth extraction History of total abdominal hysterectomy and bilateral salpingo-oophorectomy History of total knee replacement LEFT Hx of hand surgery LEFT HAND SURGERY "TOOK BONES OUT" S/P arteriovenous (AV) fistula creation Left arm S/P panniculectomy Family History Brother Family history of diabetes mellitus Coronary heart disease Mother Family history of diabetes mellitus Other No family history of adverse response to anesthesia Social History Smoking Status: Unknown if ever smoked Tobacco Type: Cigarettes Cigarettes Per Day: 1; Second Hand Exposure: Yes; Hx Alcohol Use: No Hx Substance Use: Yes Last Used Substance: Hours (ago) Substance Use Type Other:: unable to respond Preferred Language: Croatian Communication Ability: Unable Visual Impairment: No Limitations Rn Telemetry Required: No Beliefs That Will Affect Care: None Current Living Situation: Alone Feels Safe at Home: Yes Assistive Devices: Walker Review of Systems Review of Systems: Unobtainable due to cognitive status Physical Exam Physical Exam: Constitutional: Petite ill looking lady, confused, looks dry. Head: Normocephalic, Atraumatic Respiratory:, lungs clear to auscultation, no wheeze, rales, rhonchi. Normal insp/exp effort, no accessory muscle use Cardiovascularno JVD or carotid bruit Chest: normal inspection of chest Abdomen: normal bowel sounds, soft, nontender, no hepatosplenomegaly Musculoskeletal: no cyanosis or clubbing, Skin: no rashes, warm and dry Neurologic:Confused Results & Data ([facility]) Vital Signs (Past 12 Hours) Vital Signs Temp Pulse Resp BP Pulse Ox 04/08/21 08:25 203/119 H 04/08/21 08:20 197/100 H 04/08/21 08:15 227/89 H 04/08/21 08:12 199/115 H 04/08/21 08:00 232/91 H 04/08/21 07:45 217/114 H 04/08/21 07:30 204/93 H 04/08/21 07:15 204/101 H 04/08/21 07:01 201/79 H 04/08/21 06:45 181/86 H 04/08/21 06:30 67 18 217/112 H 98 04/08/21 06:15 77 18 201/109 H 98 04/08/21 06:01 71 18 205/79 H 100 04/08/21 06:00 72 16 94 04/08/21 05:50 63 17 99 04/08/21 05:46 61 21 170/69 H 99 04/08/21 05:31 197/76 H 04/08/21 05:15 60 18 104/77 98 04/08/21 05:01 65 18 167/121 H 98 04/08/21 04:45 64 18 210/92 H 98 04/08/21 04:26 64 15 186/78 H 98 04/08/21 04:11 67 12 207/89 H 97 04/08/21 03:53 74 20 209/74 H 98 04/08/21 02:45 36.6 C 77 15 201/101 H 97 Laboratory Results 04/08/21 02:55 04/08/21 02:55 (1) Altered mental status Altered mental status type: unspecified Qualified Code(s): R41.82 - Altered mental status, unspecified
[2021-04-08] MEDS: FAMOTIDINE 20 MG in SYRINGE 3 ML IV SCH ×2 (09:56→20:21)
--- NOTE | 2021-04-08 09:57 | History and Physical Report ---
DATE OF ADMISSION: 04/08/2021. CHIEF COMPLAINT: Confusion. HISTORY OF PRESENT ILLNESS: This is a 71-year-old female with past medical history significant for type 2 diabetes, diabetic retinopathy, hyperparathyroidism secondary to renal disease, endstage renal disease on hemodialysis, hypothyroidism, history of COPD, chronic rhinitis, history of DE, history of paroxysmal atrial fibrillation, GERD, history of dysphagia, restless legs syndrome, history of hearing loss, iron deficiency anemia, history of tobacco abuse, insomnia, history of anxiety and depression. The patient lives with her son, was brought in for confusion, last time the son saw her was on morning 4 a.m. and when he came home in the nighttime, last night, she was found on the floor confused. EMS was called. EMS could not wake her up and she was brought in here. As per the son she complained of lower extremity leg pain on and she did not go for dialysis because of the leg pain, but she seemed okay. In the ER, blood pressure was high in 200s and the rest of the labs were okay except for white count was 11.4, creatinine 4.7. LFTs okay. Urinalysis, +3 protein, but no obvious infection seen. Drug screen is unremarkable. COVID, influenza and RSV are negative. CT of the head, no acute findings. CT of abdomen and pelvis, no acute findings. Chest CT on preliminary report, no acute findings. Cervical spine CT, no acute findings. . No acidosis seen. EKG okay. The patient is mumbling, not answering any questions somewhat shaking, some bruises seen on her extremities. Could not get any history. ALLERGIES: BEE VENOM, PREDNISONE, TOMATO, PENICILLIN, SIMVASTATIN, TRAZODONE AND STATINS. PAST MEDICAL HISTORY: As mentioned above. PAST SURGICAL HISTORY: Bimalleolar ankle fracture fixation, CABG, , colonoscopy, EGDs, EGD with endoscopic ultrasound, laparoscopic insertion of intraperitoneal catheter, tonsillectomy and adenoidectomy, repair of inguinal hernia, injection of sacroiliac joint, total abdominal hysterectomy with removal of tubes, umbilical hernia repair. MEDICATIONS: As per [facility], hydralazine 50 mg p.o. at bedtime, ropinirole 0.5 mg 1 tablet q. 2 hours p.o. at bedtime, albuterol 2 puffs inhalation p.r.n., montelukast 10 mg p.o. daily, loperamide 2 mg q.i.d. p.r.n., Lomotil p.r.n., levothyroxine 25 mcg p.o. daily, Plavix 75 mg p.o. daily, sevelamer carbonate 800 mg p.o. t.i.d. with meals, melatonin 3 mg p.o. at bedtime, metoprolol tartrate 25 mg p.o. b.i.d., buspirone 5 mg p.o. b.i.d., Breo Ellipta 1 puff daily, Flonase daily, Lasix 40 mg p.o. daily p.r.n. as directed, linagliptin 5 mg p.o. daily, sertraline 150 mg p.o. daily, amlodipine 10 mg p.o. daily, Zofran 8 mg p.o. t.i.d. p.r.n., Colace 4 g daily, aspirin 81 mg p.o. daily, vitamin D 25 mcg daily, DuoNebs q.i.d., Nitrostat 0.4 mg sublingual p.r.n., epinephrine for anaphylaxis. FAMILY HISTORY: Significant for brother has allergies, asthma, diabetes, mother has allergies; paternal aunt has breast cancer; maternal grandmother had colon cancer. SOCIAL HISTORY: . Quit smoking in 2019, smoked 1/3 pack a day for 13-15 years. No alcohol use. No drug use. REVIEW OF SYSTEMS: As per HPI. Rest of system review of systems is negative. PHYSICAL EXAMINATION: GENERAL: The patient is of moderate build, not in acute distress. VITAL SIGNS: Temperature 36.6, pulse 67, respiratory rate 18, blood pressure 217/112, oxygen 98% on room air. HEENT: Pupils equal, round and reactive to light. Oral mucosa moist. NECK: No JVD, no neck masses. CARDIOVASCULAR: S1 and S2 heard. Regular rate and rhythm. No murmur, no gallop. RESPIRATORY SYSTEM: Normal AP diameter. No accessory muscle use. No wheezing, no crackles. ABDOMEN: Soft, bowel sounds present, no distention. CENTRAL NERVOUS SYSTEM: Drowsy, not arousable, wombling, shaky. EXTREMITIES: No edema. Some bruises seen on extremities. Mild pedal edema seen. LABORATORY DATA: WBC 11.4, hemoglobin 11.8, hematocrit 37, platelets 190. PT 9.9, INR 1. ABG, pH of 7.35, pCO2 of 43, pO2 of 75, bicarbonate 24. Sodium 138, potassium 4.3, chloride 104, CO2 of 28, BUN 61, creatinine 4.7, serum glucose 165. Lactate 1.5, calcium 9.7, ionized calcium 1.1, total bilirubin 0.9, AST 22, ALT 19, alkaline phosphatase 116, total creatine kinase 183. Urinalysis, +3 protein. Urine drug screen negative. Alcohol less than 3. SARS-CoV-2 PCR negative. Influenza A and B PCR negative. RSV PCR negative. CT of the head without contrast, no acute findings. CT of abdomen and pelvis with contrast, no acute findings. Chest CT on the preliminary report, no acute findings. Cervical spine CT on preliminary report, no acute findings. EKG: Normal sinus rhythm at a rate of 69, possible left atrial enlargement, no acute findings. ASSESSMENT AND PLAN: A 71-year-old female who was found confused at home. 1. Confusion, encephalopathy of unknown etiology. Labs looks fine except for mild leukocytosis. Drug screen is negative. ABG is okay. Blood pressure running high, could be from missed medication or could be hypertensive encephalopathy, missed dialysis on . We will try to get dialysis today. We will also try to get an MRI scan to rule out any central lesions. We will also order EEG and empirically, start her on meropenem empirically for 48 hours. Follow the cultures. Closely monitor in the tele floor. 2. Hypertensive urgency vs hypertensive encephalopathy, placed on IV Lopressor 5 mg q. 6 hours and IV hydralazine p.r.n. Closely monitor the blood pressure. 3. Endstage renal disease, missed dialysis on . We will consult Nephrology for dialysis today. . 4. Chronic obstructive pulmonary disease. Continue her home inhalers. 5. Diabetes. We will place on insulin sliding scale. 6. Hypothyroidism. On Synthroid. 7. History of myocardial infarction, Plavix, statin and beta arturo when able to take p.o. 8. History of paroxysmal atrial fibrillation, rate controlled, not on anticoagulation, on aspirin and Plavix. Monitor on Lopressor. 9. Gastroesophageal reflux disease, we will place on IV Pepcid. 10. Restless legs syndrome, on ropinirole, we will give whenever she is able to take. 11. Anemia of chronic kidney disease, iron deficiency anemia. Follow the stool for Hemoccult.Follow labs. 12. Deep venous thrombosis prophylaxis: Heparin subcu for now. DISPOSITION: Closely monitor in the tele floor. Level 1 full code as per my discussion with the son. Social service to help with discharge planning. Job ID: [id number] OLIVIER
[2021-04-08] MEDS: INSULIN ASPART PER UNIT SC SCH ×3 (10:00→18:31)
[2021-04-08] MEDS ORDERED: SODIUM CHLORIDE 0.9% 1000ML 1,000 ML IV PRN (10:54)
[2021-04-08] MEDS ORDERED: ALBUTEROL HFA 8 GM INHALER INH PRN (10:57)
[2021-04-08] MEDS ORDERED: ALBUT/IPRATROP 3MG/0.5MG NEB 3 ML VIAL INH PRN (10:57)
[2021-04-08] MEDS ORDERED: EPINEPHrine INJ 1 MG/ML AMP IM PRN (10:57)
--- NOTE | 2021-04-08 11:06 | Magnetic Resonance Report ---
Brain MRI WITHOUT CONTRAST HISTORY: Altered mental status. etiology? TECHNIQUE: Multiplanar multisequence MRI of the brain was performed without the use of contrast. COMPARISON STUDY: Head CT 04/08/2021. FINDINGS: Exam is moderately compromised by motion artifact. Evidence for bilateral lens replacement. There is no mass, hematoma, midline shift, or acute infarct. The paranasal sinuses are clear. The ma stoid air cells are clear. The ventricles and sulci demonstrate mild age-related involutional changes . Scattered foci of T2 hyperintensity seen within the periventricular and subcortical white matter ar e nonspecific but suggestive of mild microvascular ischemic changes. The major vascular flow voids at the skull base are well-maintained. IMPRESSION: The exam is moderately compromised by motion artifact. However, no definite acute intracranial abnorm ality. ACT 112: Negative or not required by law. Electronically signed by: Jose Steinberg M.D. 04/08/2021 11:05 AM
--- NOTE | 2021-04-08 11:07 | Hospitalist Progress Note ---
Date of Service April 08, 2021 Assessment & Plan Admission and Anticipated Discharge Date Admission Date: April 08, 2021 Subjective As per cardiac notes from [facility] [place] seemed to have hospitalized in the past with similar symptoms of unresponiveness and possible seizures and finally thought to be from polypharmacy and opioid overdose. During that hispitalization she had PAF and was started on coumadin but after going home patient stopped coumadin and went back on aspirin and plavix as she thought coumadin caused stomach upset. Results & Data Results & Data ([facility]) Vital Signs (Past 12 Hours) Vital Signs Temp Pulse Resp BP Pulse Ox 04/08/21 08:25 203/119 H 04/08/21 08:20 197/100 H 04/08/21 08:15 227/89 H 04/08/21 08:12 199/115 H 04/08/21 08:00 232/91 H 04/08/21 07:45 217/114 H 04/08/21 07:30 204/93 H 04/08/21 07:15 204/101 H 04/08/21 07:01 201/79 H 04/08/21 06:45 181/86 H 04/08/21 06:30 67 18 217/112 H 98 04/08/21 06:15 77 18 201/109 H 98 04/08/21 06:01 71 18 205/79 H 100 04/08/21 06:00 72 16 94 04/08/21 05:50 63 17 99 04/08/21 05:46 61 21 170/69 H 99 04/08/21 05:31 197/76 H 04/08/21 05:15 60 18 104/77 98 04/08/21 05:01 65 18 167/121 H 98 04/08/21 04:45 64 18 210/92 H 98 04/08/21 04:26 64 15 186/78 H 98 04/08/21 04:11 67 12 207/89 H 97 04/08/21 03:53 74 20 209/74 H 98 04/08/21 02:45 36.6 C 77 15 201/101 H 97
--- NOTE | 2021-04-08 12:20 | Electroencephalogram ---
EEG Procedure Note Date of Service April 08, 2021 Start / End Times Start Time: 1103 End Time: 1123 Referring Physician Oneal Manzano MD History Confusional state of uncertain cause question nonconvulsive seizures Home Medication List Medication Instructions Recorded Confirmed Type aspirin 81 mg tablet,delayed 81 mg PO QAM 02/18/18 01/25/21 History release (Aspirin Low Dose) fluticasone propionate 50 1 spray INTRANASAL DAILY PRN 02/18/18 01/25/21 History mcg/actuation nasal spray,suspension (Flonase Allergy Relief) levothyroxine 25 mcg tablet 25 mcg PO QAM 02/18/18 04/08/21 History montelukast 10 mg tablet 10 mg PO HS 02/18/18 01/25/21 History (Singulair) sertraline 100 mg tablet (Zoloft) 150 mg PO QAM 02/18/18 04/08/21 History sevelamer carbonate 800 mg tablet 1,600 mg PO TIDM 03/26/19 04/08/21 History (Renvela) amlodipine 10 mg tablet (Norvasc) 10 mg PO QAM 03/23/20 04/08/21 History linagliptin 5 mg tablet (Tradjenta) 5 mg PO QAM 03/23/20 01/25/21 History nitroglycerin 0.4 mg sublingual 0.4 mg SUBLINGUAL UD PRN 03/23/20 01/25/21 History tablet (Nitrostat) furosemide 40 mg tablet 40 mg PO QAM 01/07/21 04/08/21 History ammonium lactate 12 % topical cream 1 applic TOPICAL DAILY PRN 01/25/21 01/25/21 History buspirone 5 mg tablet 5 mg PO BID 01/25/21 04/08/21 History cholecalciferol (vitamin D3) 25 25 mcg PO DAILY 01/25/21 01/25/21 History mcg (1,000 unit) capsule (Vitamin D3) epinephrine 0.3 mg/0.3 mL 0.3 mg IM Q4H PRN 01/25/21 01/25/21 History injection, auto-injector ipratropium 0.5 mg-albuterol 3 mg 3 ml INHALATION Q4H PRN 01/25/21 01/25/21 History (2.5 mg base)/3 mL nebulization soln ondansetron HCl 8 mg tablet 8 mg PO TID PRN 01/25/21 01/25/21 History metoprolol tartrate 25 mg tablet 25 mg PO BID #60 tab 02/01/21 Rx mirtazapine 15 mg tablet 15 mg PO HS PRN #30 tab 02/01/21 04/08/21 Rx DuoNeb 3 ml INHALATION QID 04/08/21 04/08/21 History albuterol sulfate 90 mcg/actuation 2 inh INHALATION Q4H PRN 04/08/21 04/08/21 History aerosol inhaler azelastine 137 mcg (0.1 %) nasal 2 spray INTRANASAL BID 04/08/21 04/08/21 History spray aerosol clopidogrel 75 mg tablet 75 mg PO DAILY 04/08/21 04/08/21 History fluticasone furoate 100 1 inh INHALATION DAILY 04/08/21 04/08/21 History mcg-vilanterol 25 mcg/dose inhalation powder (Breo Ellipta) hydralazine 25 mg tablet 50 mg PO HS 04/08/21 04/08/21 History loperamide 2 mg capsule 2 mg PO DAILY 04/08/21 04/08/21 History melatonin 3 mg PO HS 04/08/21 04/08/21 History ropinirole 0.25 mg tablet 0.5 mg PO HS 04/08/21 04/08/21 History Inpatient Medication List Sodium Chloride (Nss 1000ml) 1,000 mls @ 50 mls/hr IV .Q20H SILVIA Stop: 05/08/21 07:52 Last Admin: 04/08/21 10:00 Dose: 50 mls/hr Documented by: [id number] Famotidine 20 mg/ Syringe 5 mls @ 2.5 mls/min IV BID SILVIA Stop: 05/08/21 08:59 Last Admin: 04/08/21 09:56 Dose: 2.5 mls/min Documented by: [id number] Insulin Aspart (Insulin Aspart Per Unit) 0 units SC ACHS SILVIA Stop: 05/08/21 07:52 Last Admin: 04/08/21 10:00 Dose: Not Given Documented by: [id number] Cosigned by: [id number] Discontinued Medications Hydralazine HCl (Hydralazine Hcl 20 Mg/Ml Vial) 10 mg IV NOW STA Stop: 04/08/21 05:24 Last Admin: 04/08/21 05:33 Dose: 10 mg Documented by: [id number] Hydralazine HCl (Hydralazine Hcl 20 Mg/Ml Vial) 10 mg IV NOW STA Stop: 04/08/21 06:49 Last Admin: 04/08/21 08:10 Dose: 10 mg Documented by: [id number] Meropenem 500 mg/ Syringe 10 mls @ 2 mls/min IV NOW ONE; Protocol Stop: 04/08/21 09:04 Last Admin: 04/08/21 09:57 Dose: 2 mls/min Documented by: [id number] Lorazepam (Ativan) 0.5 mg in 1 mls @ 1 mls/min IV NOW STA Stop: 04/08/21 08:28 Last Admin: 04/08/21 09:57 Dose: 1 mls/min Documented by: [id number] Ioversol (Optiray 320 100ml) 94 ml IV ONCE ONE Stop: 04/08/21 04:13 Last Admin: 04/08/21 04:12 Dose: 1 ml Documented by: [id number] Description This is a 21 electrode EEG with a single channel dedicated to limited EKG. The electrodes were placed in accordance with the International 10-20 system. This EEG was done as a bedside recording and is relatively free of muscle movement artifacts. Photic stimulation was performed. The patient on video analysis appeared to be confused and agitated Under these conditions there is no normal background alpha rhythm but rather a upper frequency theta pattern of 7 to 8 Hz and maximum frequency and of up to 30 V a maximum amplitude which appears in the occipital regions predominantly and is symmetrical. Over the central regions theta delta activity of modest voltage is also present without any clear focality. Beta activity seen bifrontally. Photic stimulation provokes no important changes and only minimal driving response No epileptiform activity is seen Interpretation The current study is consistent with a nonspecific encephalopathy with no focal features and no associated potentially epileptogenic activity Clinical Correlation As above current study indicates evidence for nonfocal generalized and highly nonspecific encephalopathy without any focal abnormalities and without potentially epileptogenic activity Oneal Manzano MD
[2021-04-08] MEDS: METOPROLOL TARTRATE 1 MG/ML VIAL IV SCH ×3 (12:39→23:12)
[2021-04-08] MEDS ORDERED: NALOXONE HCL 0.4 MG/1 ML VIAL/CARP ONE (12:42)
--- NOTE | 2021-04-08 13:07 | Communication Note ---
Date of Service: April 08, 2021 Neurology has again been asked to evaluate Mimi Wakefield for an acute confusional state with lethargy altered responsiveness agitation very similar to her presentation during her last admission when she apparently was found to have multiple drug intoxication including narcotics Was found in an unresponsive state this morning having last apparently been seen in her normal state the night prior was brought to the emergency room and has had a series of diagnostic studies including a CBC and a CMP the latter showing an elevated creatinine consistent with end-stage renal disease on dialysis, and MRI of the brain showing only some white matter changes compatible with her age and no acute infarctions, and EEG which shows a moderate generalized en cephalopathy, and a tox screen which unlike her last admission is negative for marijuana and morphine I spoke with her emergency room nurse who had administered Narcan and noted that the patient had awakened but when I saw her she was already becoming more encephalopathic and lethargic once again so I missed the improvement in her mental status described by the nurse All this occurs in the setting of hypertension coronary disease history of some vascular events term CVAs, atrial fibrillation, prior episodes of obtundation and altered mental status, prior episodes of opiate induced myoclonus evaluated by Dr. Hills, type 2 diabetes, anxiety depression and a grief reaction, chronic insomnia, end-stage renal disease, COPD, diastolic heart failure, GERD, and surgically and history of section, JOEL/BSO, hernia repair, coronary artery bypass grafting, all outlined on the current chart in more detail Home medications include albuterol amlodipine low-dose aspirin, azelastine, BuSpar, cholecalciferol, Plavix, DuoNeb, epinephrine, fluticasone, furosemide, hydralazine, albuterol levothyroxine loperamide, melatonin, metoprolol, mirtazapine, Singulair, nitroglycerin, Zofran Requip sertraline and Renvela Review of systems cannot be obtained Family history and social history are all outlined on the current chart Exam reveals blood pressure 139/60 pulse 57 respirations are 18 she is afebrile O2 saturations are 98% She is lethargic makes eye contact but does not really speak, mumbles, reaches out randomly with her hands, seems to have intact eye movements but really will not follow commands seems to have intact response to visual threat no obvious facial asymmetry I do not see any drift or pronation sign but this is not reliable and I certainly do not see any myoclonus or asterixis significant tremor and suspect she is moving all extremities and fairly symmetrical and equal fashion. Reflexes cannot be tested due to her lack of relaxation I do not see any pathologic reflexes. Sensory examination cannot be performed The cause of the current recurrent encephalopathy remains unclear. The toxicology screen does not confirm the prior exposure to marijuana and opiates. It is possible that she took an overdose of some of her prescription drugs which would not have been detected on toxicology screen. I do not know how to explain her apparent response to Narcan. She apparently did miss a dialysis session but I doubt that this would produce such an acute encephalopathy. We have no evidence for seizure activity but a postictal state cannot be eliminated. We do not have any evidence for a new vascular event or significant structural disease and there is very low index of suspicion for an infectious process I will check back with her tomorrow and by chart review. Neurology has no suggestions other than to continue to observe her, hold some of her medications and get her started back on her dialysis as soon as possible If this was due to excessive ingestion of prescription drugs that are not measurable in a toxicology screen her mental status should clear with time and perhaps with dialysis I see no reason to perform a lumbar puncture or further diagnostic studies at this time less things would change she demonstrated clear signs of infectious illness nuchal rigidity etc. Oneal Manzano MD
[2021-04-08] MEDS: ALBUT/IPRATROP 3MG/0.5MG NEB 3 ML VIAL INH SCH ×2 (13:09→20:18)
--- NOTE | 2021-04-08 14:03 | Hospitalist Progress Note ---
Date of Service April 08, 2021 Assessment & Plan (1) Altered mental status: (2) Hypertension: Plan: 71-year-old female with past medical history significant for type 2 diabetes, diabetic retinopathy, hyperparathyroidism secondary to renal disease, endstage renal disease on hemodialysis, hypothyroidism, history of COPD, chronic rhinitis, history of [place], history of paroxysmal atrial fibrillation, GERD, history of dysphagia, restless legs syndrome, history of hearing loss, iron deficiency anemia, history of tobacco abuse, insomnia, history of anxiety and depression presented 04/08 for confusion. Patient lives with his son and last time seen well was 4 AM on 04/07. She was found confused and on the floor on the night [employer]. Brought by EMS. She is being managed for the followin. Confusion, encephalopathy of unknown etiology.: Admitting WBC 11.4 7K, ABG WNL, BMP WNL except for BUN/creatinine elevation [patient is ESRD on HD], blood glucose level WNL, lactate WNL, LFT WNL. Admitting UA not suggestive of UTI. Admitting urine opiates screen negative, rest of the toxicology negative including ethyl alcohol. Admitting EKG: NSR Admitting EKG: Read pending Admitting imagings: ~Brain MRI: No acute finding ~Head CT: No acute intracranial findings, no calvarial fracture. ~Chest CT: No acute chest disease, mild cardiomegaly status post previous cardiothoracic surgery. ~Cervical spine CT: Osteopenia with no acute osseous pathology. ~Abdomen pelvis CT: No acute traumatic findings within the abdomen or pelvis. At presentation, blood pressure running high, could be from missed medication or could be hypertensive encephalopathy, missed dialysis on . Started her on meropenem 03/21 empirically for 48 hours. Follow the cultures 04/08. Closely monitor in the tele floor. Neurology evaluated the patient, continue to observe, no further diagnostic tests at this time. Cause unknown, c/w supportive management. 2. Hypertensive urgency vs hypertensive encephalopathy, placed on IV Lopressor 5 mg q. 6 hours and IV hydralazine p.r.n. Closely monitor the blood pressure. 3. Endstage renal disease, missed dialysis on . Nephrology on board:. Plan for dialysis today. 4. Chronic obstructive pulmonary disease. Continue her home inhalers. 5. Diabetes. We will place on insulin sliding scale. 6. Hypothyroidism. On Synthroid. 7. History of myocardial infarction, Plavix, statin and beta arturo when able to take p.o. 8. History of paroxysmal atrial fibrillation, rate controlled, not on anticoagulation, on aspirin and Plavix. Monitor on Lopressor. 9. Gastroesophageal reflux disease, we will place on IV Pepcid. 10. Restless legs syndrome, on ropinirole, we will give whenever she is able to take. 11. Anemia of chronic kidney disease, iron deficiency anemia. Follow the stool 12. Deep venous thrombosis prophylaxis: Heparin subcu for now. DISPOSITION: Closely monitor in the tele floor. Level 1 full code as per Admitting physician's discussion with the son. Social service to help with discharge planning. Admission and Anticipated Discharge Date Admission Date: April 08, 2021 Subjective Patient was lying in bed, drowsy and difficult to awake, unable to cooperate, NAD, on room air. Per RN, she had been confused and occasionally speaks few words. Patient was incontinent of bowel and urine. ROS not assessable due to cognition status. Physical Exam Physical Exam: GENERAL: drowsy, confused, unable to cooperate, NAD, on RA. HEENT: No pallor, no icterus. Pupils equal, round and reactive to light. Oral mucosa moist. NECK: No JVD, no neck masses. HEART: S1 and S2 heard. Regular rate and rhythm. No murmur, no gallop. RESPIRATORY SYSTEM: Normal AP diameter. No accessory muscle use. No wheezing, no crackles. ABDOMEN: Soft, bowel sounds present, no distention. CENTRAL NERVOUS SYSTEM: No facial droop. moves extremities. n/a EXTREMITIES: No edema, no erythema seen. Results & Data Results & Data ([facility]) Vital Signs (Past 12 Hours) Vital Signs Temp Pulse Pulse Resp BP BP Pulse Ox 04/08/21 13:09 57 L 18 98 04/08/21 13:07 96 04/08/21 13:06 04/08/21 13:05 55 L 16 139/68 96 04/08/21 12:39 70 176/80 H 04/08/21 08:25 203/119 H 04/08/21 08:20 197/100 H 04/08/21 08:15 227/89 H 04/08/21 08:12 199/115 H 04/08/21 08:00 232/91 H 04/08/21 07:45 217/114 H 04/08/21 07:30 204/93 H 04/08/21 07:15 204/101 H 04/08/21 07:01 201/79 H 04/08/21 06:45 181/86 H 04/08/21 06:30 67 18 217/112 H 98 04/08/21 06:15 77 18 201/109 H 98 04/08/21 06:01 71 18 205/79 H 100 04/08/21 06:00 72 16 94 04/08/21 05:50 63 17 99 04/08/21 05:46 61 21 170/69 H 99 04/08/21 05:31 197/76 H 04/08/21 05:15 60 18 104/77 98 04/08/21 05:01 65 18 167/121 H 98 04/08/21 04:45 64 18 210/92 H 98 04/08/21 04:26 64 15 186/78 H 98 04/08/21 04:11 67 12 207/89 H 97 04/08/21 03:53 74 20 209/74 H 98 04/08/21 02:45 36.6 C 77 15 201/101 H 97 Pulse Ox 04/08/21 13:09 04/08/21 13:07 04/08/21 13:06 96 04/08/21 13:05 04/08/21 12:39 04/08/21 08:25 04/08/21 08:20 04/08/21 08:15 04/08/21 08:12 04/08/21 08:00 04/08/21 07:45 04/08/21 07:30 04/08/21 07:15 04/08/21 07:01 04/08/21 06:45 04/08/21 06:30 04/08/21 06:15 04/08/21 06:01 04/08/21 06:00 04/08/21 05:50 04/08/21 05:46 04/08/21 05:31 04/08/21 05:15 04/08/21 05:01 04/08/21 04:45 04/08/21 04:26 04/08/21 04:11 04/08/21 03:53 04/08/21 02:45 (1) Altered mental status Altered mental status type: unspecified Qualified Code(s): R41.82 - Altered mental status, unspecified (2) Hypertension Hypertension type: unspecified Qualified Code(s): I10 - Essential (primary) hypertension
[2021-04-08] MEDS: SEVELAMER HCL 800 MG TABLET PO SCH ×2 (16:46→18:32)
[2021-04-08] MEDS ORDERED: LABETALOL HCL IV 5 MG/ML 20ML IV PRN (17:21)
[2021-04-08] MEDS: HEPARIN SOD 5,000 UNIT/0.5 ML VIAL SQ SCH ×2 (18:31→20:21)
[2021-04-08] MEDS: busPIRone 5 MG TAB PO SCH (20:19)
[2021-04-08] MEDS ORDERED: Nursing to Pharmacy Communication SCH ×2 (20:30→21:00)
[2021-04-08] MEDS ORDERED: hydrALAZINE TAB 50 MG TAB PO SCH (21:00)
[2021-04-08] MEDS ORDERED: MONTELUKAST SODIUM 10 MG TABLET PO SCH (21:00)
[2021-04-08] MEDS: AZELASTINE HCL 0.1% NASAL 200 SPRAYS/27,400 MCG BTL SCH (21:51)
[2021-04-09] MEDS ORDERED: INSULIN ASPART PER UNIT SC SCH
[2021-04-09] MEDS: METOPROLOL TARTRATE 1 MG/ML VIAL IV SCH ×2 (04:55→11:56)
[2021-04-09] MEDS: HEPARIN SOD 5,000 UNIT/0.5 ML VIAL SQ SCH (04:56)
[2021-04-09] MEDS ORDERED: rOPINIRole HCL 0.25 MG TABLET PO SCH (05:25)
[2021-04-09 05:31] LABS: Basophils # (auto) 0.03 K/uL (0-0.2); Basophils % (auto) 0.4 %; Eosinophils # (auto) 0.01 K/uL (0-0.5); Eosinophils % (auto) 0.1 %; Hematocrit (blood only) 34.9 % (37-47); Hemoglobin 11.1 g/dL (12.0-16.0); Immature Granulocytes # (auto) 0.02 K/uL (0.00-0.02); Immature Granulocytes % (auto) 0.3 %; Lymphocytes # (auto) 1.33 K/uL (1.2-3.4); Lymphocytes % (auto) 18.6 %; Mean Corpuscular Hemoglobin 29.9 pg (25-34); Mean Corpuscular Hgb Conc 31.8 g/dL (32-36); Mean Corpuscular Volume 94.1 fL (80-100); Mean Platelet Volume 9.2 fL (7.4-10.4); Monocytes # (auto) 0.46 K/uL (0.11-0.59); Monocytes % (auto) 6.4 %; Neutrophils # (auto) 5.29 K/uL (1.4-6.5); Neutrophils % (auto) 74.2 %; Platelet Count 171 K/uL (130-400); RDW Coefficient of Variation 14.3 % (11.5-14.5); RDW Standard Deviation 49.3 fL (36.4-46.3); Red Blood Count 3.71 M/uL (4.2-5.4); White Blood Count 7.14 K/uL (4.8-10.8)
[2021-04-09 06:04] LABS: BUN Creatinine Ratio 8.6 (10-20); Calcium 8.9 mg/dl (8.5-10.1); Est GFR (African American) 13.1 ml/min; Est GFR (Non-African American) 11.3 ml/min; Magnesium 2.7 mg/dl (1.8-2.4); Potassium 3.9 mmol/L (3.5-5.1)
[2021-04-09] MEDS ORDERED: LEVOTHYROXINE SODIUM 25 MCG TABLET PO SCH (06:30)
[2021-04-09 07:32] LABS: Estimated Average Glucose 140 mg/dl; Hemoglobin A1C 6.5 % (4.5-5.6)
[2021-04-09] MEDS: SEVELAMER HCL 800 MG TABLET PO SCH ×2 (08:59→11:56)
[2021-04-09] MEDS: FAMOTIDINE 20 MG in SYRINGE 3 ML IV SCH (09:00)
[2021-04-09] MEDS ORDERED: CHOLECALCIFEROL 1,000 UNITS 25 MCG TAB PO SCH (09:00)
[2021-04-09] MEDS ORDERED: CLOPIDOGREL BISULFATE 75 MG TAB PO SCH (09:00)
[2021-04-09] MEDS ORDERED: amLODIPine BESYLATE 5 MG TAB PO SCH (09:00)
[2021-04-09] MEDS ORDERED: FUROSEMIDE 40 MG TAB PO SCH (09:00)
[2021-04-09] MEDS ORDERED: SERTRALINE HCL 50 MG TABLET PO SCH (09:00)
[2021-04-09] MEDS ORDERED: FLUTICASONE/VILANTEROL 100/25MCG 14 PUFFS/INHALER INH SCH (09:00)
[2021-04-09] MEDS ORDERED: ASPIRIN 81 MG ECTAB PO SCH (09:00)
[2021-04-09] MEDS: busPIRone 5 MG TAB PO SCH (09:01)
[2021-04-09] MEDS: INSULIN ASPART PER UNIT SC SCH ×2 (09:02→11:52)
[2021-04-09] MEDS: ALBUT/IPRATROP 3MG/0.5MG NEB 3 ML VIAL INH SCH (10:18)
[2021-04-09] MEDS: AZELASTINE HCL 0.1% NASAL 200 SPRAYS/27,400 MCG BTL SCH (11:56)
--- NOTE | 2021-04-09 13:55 | Hospitalist Progress Note ---
Date of Service April 09, 2021 Assessment & Plan (1) Altered mental status: (2) Hypertension: Plan: 71-year-old female with past medical history significant for type 2 diabetes, diabetic retinopathy, hyperparathyroidism secondary to renal disease, endstage renal disease on hemodialysis, hypothyroidism, history of COPD, chronic rhinitis, history of MD, history of paroxysmal atrial fibrillation, GERD, history of dysphagia, restless legs syndrome, history of hearing loss, iron deficiency anemia, history of tobacco abuse, insomnia, history of anxiety and depression presented 04/08 for confusion. Patient lives with his son and last time seen well was 4 AM on 04/07. She was found confused and on the floor on the night [employer]. Brought by EMS. She is being managed for the followin. Confusion, encephalopathy of unknown etiology.: Admitting WBC 11.4 7K, ABG WNL, BMP WNL except for BUN/creatinine elevation [patient is ESRD on HD], blood glucose level WNL, lactate WNL, LFT WNL. Admitting UA not suggestive of UTI. Admitting urine opiates screen negative, rest of the toxicology negative including ethyl alcohol. Admitting EKG: NSR Admitting EKG: Read pending Admitting imagings: ~Brain MRI: No acute finding ~Head CT: No acute intracranial findings, no calvarial fracture. ~Chest CT: No acute chest disease, mild cardiomegaly status post previous cardiothoracic surgery. ~Cervical spine CT: Osteopenia with no acute osseous pathology. ~Abdomen pelvis CT: No acute traumatic findings within the abdomen or pelvis. At presentation, blood pressure running high, could be from missed medication or could be hypertensive encephalopathy, missed dialysis on . Started her on meropenem 03/21 empirically for 48 hours. Follow the cultures 04/08. Closely monitor in the tele floor. Neurology evaluated the patient, continue to observe, no further diagnostic tests at this time. Cause unknown, c/w supportive management. 2. Hypertensive urgency vs hypertensive encephalopathy, placed on IV Lopressor 5 mg q. 6 hours and IV hydralazine p.r.n. Closely monitor the blood pressure. 3. Endstage renal disease, missed dialysis on . Nephrology on board:. Plan for dialysis today. 4. Chronic obstructive pulmonary disease. Continue her home inhalers. 5. Diabetes. We will place on insulin sliding scale. 6. Hypothyroidism. On Synthroid. 7. History of myocardial infarction, Plavix, statin and beta arturo when able to take p.o. 8. History of paroxysmal atrial fibrillation, rate controlled, not on anticoagulation, on aspirin and Plavix. Monitor on Lopressor. 9. Gastroesophageal reflux disease, we will place on IV Pepcid. 10. Restless legs syndrome, on ropinirole, we will give whenever she is able to take. 11. Anemia of chronic kidney disease, iron deficiency anemia. Follow the stool 12. Deep venous thrombosis prophylaxis: Heparin subcu for now. DISPOSITION: Closely monitor in the tele floor. Level 1 full code as per Admitting physician's discussion with the son. Social service to help with discharge planning. Admission and Anticipated Discharge Date Admission Date: April 08, 2021 Subjective Patient was lying in bed, drowsy and difficult to awake, unable to cooperate, NAD, on room air. Per RN, she had been confused and occasionally speaks few words. Patient was incontinent of bowel and urine. ROS not assessable due to cognition status. Physical Exam Physical Exam: GENERAL: drowsy, confused, unable to cooperate, NAD, on RA. HEENT: No pallor, no icterus. Pupils equal, round and reactive to light. Oral mucosa moist. NECK: No JVD, no neck masses. HEART: S1 and S2 heard. Regular rate and rhythm. No murmur, no gallop. RESPIRATORY SYSTEM: Normal AP diameter. No accessory muscle use. No wheezing, no crackles. ABDOMEN: Soft, bowel sounds present, no distention. CENTRAL NERVOUS SYSTEM: No facial droop. moves extremities. n/a EXTREMITIES: No edema, no erythema seen. Results & Data Results & Data ([facility]) Vital Signs (Past 12 Hours) Vital Signs Temp Pulse Pulse Pulse Resp BP BP 04/09/21 11:56 69 170/72 H 04/09/21 11:43 36.4 C L 67 18 170/72 H 04/09/21 11:22 36.8 C 64 16 170/72 H 04/09/21 06:58 36.7 C 65 17 155/62 H 04/09/21 05:13 66 157/66 H 04/09/21 04:55 75 177/64 H 04/09/21 03:31 37.0 C 75 18 177/64 H Pulse Ox 04/09/21 11:56 04/09/21 11:43 95 04/09/21 11:22 94 04/09/21 06:58 92 04/09/21 05:13 04/09/21 04:55 04/09/21 03:31 91 (1) Altered mental status Altered mental status type: unspecified Qualified Code(s): R41.82 - Altered mental status, unspecified (2) Hypertension Hypertension type: unspecified Qualified Code(s): I10 - Essential (primary) hypertension
--- NOTE | 2021-04-09 13:57 | Communication Note ---
Date of Service: April 09, 2021 Mimi has awakened is alert cooperative oriented has lost memory for yesterday and does not recall coming to the hospital but knows where she is now knows she has had dialysis and knows she missed her dialysis. 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 Unfortunately we are back to the possibility of her having an unwitnessed seizure with a prolonged postictal state and despite the EEG which showed only some mild generalized slowing (possibly consistent with a post ictal condition but also highly nonspecific otherwise) and no epileptiform discharges, this does not exclude a seizure disorder My recommendations are to have her undergo a 72-hour ambulatory EEG tracing and we can set this up after discharge. From a neurologic point of view she can be discharged at this point. I do not recommend an empiric trial of anticonvulsants until we have more clear-cut proof of the presence or absence of a seizure disorder Oneal Manzano MD
[2021-04-09] MEDS ORDERED: MEROPENEM 500 MG in SYRINGE 0 ML IV ONE (14:00)
--- NOTE | 2021-04-09 17:47 | Discharge Summary ---
Date of Service April 09, 2021 Admission HPI Per Admitting Provider DATE OF ADMISSION: 04/08/2021. CHIEF COMPLAINT: Confusion. HISTORY OF PRESENT ILLNESS: This is a 71-year-old female with past medical history significant for type 2 diabetes, diabetic retinopathy, hyperparathyroid ism secondary to renal disease, endstage renal disease on hemodialysis, hypothyroidism, history of COPD, chronic rhinitis, history of IA, history of paroxysmal atrial fibrillation, GERD, history of dysphagia, restless legs syndrome, history of hearing loss, iron deficiency anemia, history of tobacco abuse, insomnia, history of anxiety and depression. The patient lives with her son, was brought in for confusion, last time the son saw her was on morning 4 a.m. and when he came home in the nighttime, last night, she was found on the floor confused. EMS was called. EMS could not wake her up and she was brought in here. As per the son she complained of lower extremity leg pain on and she did not go for dialysis because of the leg pain, but she seemed okay. In the ER, blood pressure was high in 200s and the rest of the labs were okay except for white count was 11.4, creatinine 4.7. LFTs okay. Urinalysis, +3 protein, but no obvious infection seen. Drug screen is unremarkable. COVID, influenza and RSV are negative. CT of the head, no acute findings. CT of abdomen and pelvis, no acute findings. Chest CT on preliminary report, no acute findings. Cervical spine CT, no acute findings. . No acidosis seen. EKG okay. The patient is mumbling, not answering any questions somewhat shaking, some bruises seen on her extremities. Could not get any history. ALLERGIES: BEE VENOM, PREDNISONE, TOMATO, PENICILLIN, SIMVASTATIN, TRAZODONE AND STATINS. PAST MEDICAL HISTORY: As mentioned above. PAST SURGICAL HISTORY: Bimalleolar ankle fracture fixation, CABG, , colonoscopy, EGDs, EGD with endoscopic ultrasound, laparoscopic insertion of intraperitoneal catheter, tonsillectomy and adenoidectomy, repair of inguinal hernia, injection of sacroiliac joint, total abdominal hysterectomy with removal of tubes, umbilical hernia repair. MEDICATIONS: As per Epic, hydralazine 50 mg p.o. at bedtime, ropinirole 0.5 mg 1 tablet q. 2 hours p.o. at bedtime, albuterol 2 puffs inhalation p.r.n., montelukast 10 mg p.o. daily, loperamide 2 mg q.i.d. p.r.n., Lomotil p.r.n., levothyroxine 25 mcg p.o. daily, Plavix 75 mg p.o. daily, sevelamer carbonate 800 mg p.o. t.i.d. with meals, melatonin 3 mg p.o. at bedtime, metoprolol tartrate 25 mg p.o. b.i.d., buspirone 5 mg p.o. b.i.d., Breo Ellipta 1 puff daily, Flonase daily, Lasix 40 mg p.o. daily p.r.n. as directed, linagliptin 5 mg p.o. daily, sertraline 150 mg p.o. daily, amlodipine 10 mg p.o. daily, Zofran 8 mg p.o. t.i.d. p.r.n., Colace 4 g daily, aspirin 81 mg p.o. daily, vitamin D 25 mcg daily, DuoNebs q.i.d., Nitrostat 0.4 mg sublingual p.r.n., epinephrine for anaphylaxis. FAMILY HISTORY: Significant for brother has allergies, asthma, diabetes, mother has allergies; paternal aunt has breast cancer; maternal grandmother had colon cancer. SOCIAL HISTORY: . Quit smoking in 2019, smoked 1/3 pack a day for 13-15 years. No alcohol use. No drug use. REVIEW OF SYSTEMS: As per HPI. Rest of system review of systems is negative. Admission Exam Per Admitting Provider GENERAL: The patient is of moderate build, not in acute distress. VITAL SIGNS: Temperature 36.6, pulse 67, respiratory rate 18, blood pressure 217/112, oxygen 98% on room air. HEENT: Pupils equal, round and reactive to light. Oral mucosa moist. NECK: No JVD, no neck masses. CARDIOVASCULAR: S1 and S2 heard. Regular rate and rhythm. No murmur, no gallop. RESPIRATORY SYSTEM: Normal AP diameter. No accessory muscle use. No wheezing, no crackles. ABDOMEN: Soft, bowel sounds present, no distention. CENTRAL NERVOUS SYSTEM: Drowsy, not arousable, wombling, shaky. EXTREMITIES: No edema. Some bruises seen on extremities. Mild pedal edema seen. Principal Diagnosis Confusion, unknown etiology Hypertensive urgency ESRD on HD Discharge Exam GENERAL: Alert and oriented x3. NAD, on RA. HEENT: No pallor, no icterus. Pupils equal, round and reactive to light. Oral mucosa moist. NECK: No JVD, no neck masses. HEART: S1 and S2 heard. Regular rate and rhythm. No murmur, no gallop. RESPIRATORY SYSTEM: Normal AP diameter. No accessory muscle use. No wheezing, no crackles. ABDOMEN: Soft, bowel sounds present, nontender, no distention. CENTRAL NERVOUS SYSTEM: No facial droop. Speech is clear. Obeys simple commands. Moves extremities. EXTREMITIES: No edema, no erythema seen. Discharge Data Allergies Allergy/AdvReac Type Severity Reaction Status Date / Time bee venom protein (honey bee) Allergy Intermediate MOUTH Verified 01/25/21 07:40 SWELLING prednisone Allergy Intermediate SWELLING Verified 01/25/21 07:40 OG HANDS, ITCHING, RASH tomato Allergy Intermediate Hives Verified 01/25/21 07:40 Penicillins Allergy Mild RASH Verified 01/25/21 07:40 rosuvastatin Allergy Mild SEVERE H/A Verified 01/25/21 07:40 trazodone AdvReac Severe Confusion Verified 01/25/21 07:40 [id number] Reductase AdvReac Mild EFFECTED Verified 01/25/21 07:40 Inhibitor LIVER [Vzeykxp-[id number]-Zlq Reductase STUDIES Inhibitor] Consultations 04/08/21 05:51 ED Decision to Admit Stat 04/08/21 06:48 Consult Nephrology Routine 04/08/21 08:00 Consult Neurology Routine Ordered Studies 04/08/21 02:57 CT abd pelvis IV con only Urgent CT cervical spine wo con Urgent CT chest diagnostic w con Urgent CT head/brain wo con Urgent 04/08/21 07:53 MR brain wo con Urgent Hospital Course (1) Altered mental status: (2) Hypertension: 71-year-old female with past medical history significant for type 2 diabetes, diabetic retinopathy, hyperparathyroidism secondary to renal disease, endstage renal disease on hemodialysis, hypothyroidism, history of COPD, chronic rhinitis, history of IA, history of paroxysmal atrial fibrillation, GERD, history of dysphagia, restless legs syndrome, history of hearing loss, iron deficiency anemia, history of tobacco abuse, insomnia, history of anxiety and depression presented 04/08 for confusion. Patient lives with his son and last time seen well was 4 AM on 04/07. She was found confused and on the floor on the night [employer]. Brought by EMS. She was managed for the followin. Confusion, encephalopathy of unknown etiology.: Admitting WBC 11.4 7K, ABG WNL, BMP WNL except for BUN/creatinine elevation [patient is ESRD on HD], blood glucose level WNL, lactate WNL, LFT WNL. Admitting UA not suggestive of UTI. Admitting urine opiates screen negative, rest of the toxicology negative including ethyl alcohol. Admitting EKG: NSR Admitting EKG: Read pending Admitting imagings: ~Brain MRI: No acute finding ~Head CT: No acute intracranial findings, no calvarial fracture. ~Chest CT: No acute chest disease, mild cardiomegaly status post previous cardiothoracic surgery. ~Cervical spine CT: Osteopenia with no acute osseous pathology. ~Abdomen pelvis CT: No acute traumatic findings within the abdomen or pelvis. At presentation, blood pressure running high, could be from missed medication or could be hypertensive encephalopathy, missed dialysis on . Patient alert and oriented today, no pain burning with passing urine, no cough, no headache no, no dizziness, no other signs or symptoms of infection. Neurology evaluated the patient, plan for outpatient EEG monitoring. Discussed with neurology, they will set it up on Sunday per neurology. Patient at baseline on the day of discharge. 2. Hypertensive urgency vs hypertensive encephalopathy, Blood pressure not very much controlled due to patient not being able to take her blood pressure medications due to confusion, was not as needed IV medications We will resume her home medication upon discharge, also increased the dose of hydralazine, advised patient to monitor blood pressure daily and maintain a log so that her primary care physician can adjust her blood pressure medications as appropriate. 3. Endstage renal disease, missed dialysis on . Nephrology on board:. Plan for dialysis today. 4. Chronic obstructive pulmonary disease. Continue her home inhalers. 5. Diabetes. We will place on insulin sliding scale. 6. Hypothyroidism. On Synthroid. 7. History of myocardial infarction, Plavix, statin and beta arturo when able to take p.o. 8. History of paroxysmal atrial fibrillation, rate controlled, not on anticoagulation, on aspirin and Plavix. Monitor on Lopressor. 9. Gastroesophageal reflux disease, we will place on IV Pepcid. 10. Restless legs syndrome, on ropinirole, we will give whenever she is able to take. 11. Anemia of chronic kidney disease, iron deficiency anemia. Follow the stool 12. Deep venous thrombosis prophylaxis: Heparin subcu for now. Patient wants to go home, is being discharged to home with following instruction at the point of discharge: Follow-up with your primary care physician within a week time. Follow-up with neurology, per outpatient 72-hour ambulatory EEG tracing within 1 week time. Your blood pressure was consistently high while in hospital, your hydralazine dose has been increased from once a day to twice a day. Measure blood pressure once daily and maintain a log to take to your primary care physician so that your PCP can adjust your medication for your blood pressure as appropriate. Take medications as prescribed. Total Time Total Time Spent Total Time Spent (In Minutes): 40 Discharge Plan Discharge Items Patient Disposition: Home - Self-Care Reason For Visit: AMS Discharge Diagnosis: Confusion, unknown etiology Hypertensive urgency ESRD on HD Activity: Resume your previous activity Non-emergency contact: Primary Care Provider Call non-emergency contact if: you have any medication questions, your symptoms worsen and your temperature is above 101 Follow-up/Referrals: Ac Mcmanus DO [Primary Care Provider] - Diet: Carb Consistent or DM2 and Heart Healthy Addtl Attending Provider Instructions: Follow-up with your primary care physician within a week time. Follow-up with neurology, per outpatient 72-hour ambulatory EEG tracing within 1 week time. Your blood pressure was consistently high while in hospital, your hydralazine dose has been increased from once a day to twice a day. Measure blood pressure once daily and maintain a log to take to your primary care physician so that your PCP can adjust your medication for your blood pressure as appropriate. Take medications as prescribed. Pending Studies at Discharge: Yes (Admitting blood culture) Stand-Alone Forms: My [facility], Smoking Cessation Medications and DC Order Prescriptions: Continued amlodipine [Norvasc] 10 mg tablet 10 mg PO QAM RF: 0 Tradjenta 5 mg Tablet 5 mg PO QAM RF: 0 nitroglycerin [Nitrostat] 0.4 mg Tablet, Sublingual 0.4 mg sublingual UD PRN (Reason: Angina) RF: 0 sertraline [Zoloft] 100 mg Tablet 150 mg PO QAM RF: 0 aspirin [Aspirin Low Dose] 81 mg Tablet,Delayed Release (Dr/Ec) 81 mg PO QAM RF: 0 levothyroxine 25 mcg Tablet 25 mcg PO QAM RF: 0 montelukast [Singulair] 10 mg Tablet 10 mg PO HS RF: 0 fluticasone propionate [Flonase Allergy Relief] 50 mcg/actuation [place],Patricia pension 1 spray INTRANASAL DAILY PRN (Reason: Nasal Congestion) RF: 0 sevelamer carbonate [Renvela] 800 mg Tablet 1,600 mg PO TIDM RF: 0 furosemide 40 mg tablet 40 mg PO QAM RF: 0 buspirone 5 mg tablet 5 mg PO BID RF: 0 ipratropium-albuterol 0.5 mg-3 mg(2.5 mg base)/3 mL Solution For Nebulization 3 ml INHALATION Q4H PRN (Reason: Shortness Of Breath) RF: 0 ondansetron HCl 8 mg tablet 8 mg PO TID PRN (Reason: Nausea) RF: 0 ammonium lactate 12 % Cream 1 applic TOPICAL DAILY PRN (Reason: .) RF: 0 epinephrine 0.3 mg/0.3 mL Auto-Injector 0.3 mg IM Q4H PRN (Reason: Anaphylaxis) RF: 0 cholecalciferol (vitamin D3) [Vitamin D3] 25 mcg (1,000 unit) Capsule 25 mcg PO DAILY RF: 0 metoprolol tartrate 25 mg Tablet 25 mg PO BID Qty: 60 RF: 0 mirtazapine 15 mg Tablet 15 mg PO HS PRN (Reason: sleep) Qty: 30 RF: 0 loperamide 2 mg capsule 2 mg PO DAILY RF: 0 ropinirole 0.25 mg tablet 0.5 mg PO HS RF: 0 albuterol sulfate 90 mcg/actuation HFA aerosol inhaler 2 inh INHALATION Q4H PRN (Reason: Shortness Of Breath) RF: 0 clopidogrel 75 mg tablet 75 mg PO DAILY RF: 0 melatonin 3 mg 3 mg PO HS RF: 0 azelastine 137 mcg (0.1 %) aerosol,spray 2 spray INTRANASAL BID RF: 0 Breo Ellipta 100-25 mcg/dose blister with device 1 inh INHALATION DAILY RF: 0 DuoNeb 3 ml 3 ml inhalation QID RF: 0 Changed hydralazine 25 mg tablet 50 mg PO BID Qty: 0 RF: 0 Discharge Orders: Discharge Order (Routine); Ordered 04/09/21 Ordered By: Jeffry Holder Admission Data Admit Date/Time: 04/08/21 06:48 Attending Provider: Jeffry Holder Admit Provider: Antonino Tristan Primary Care Provider: Ac Mcmanus Other Providers: Tory Evans ; Antonino Tristan ; Alisha Keys Other Interventions: Discharge Summary Assessment (RN) Last Done: 04/09/21 15:48
--- NOTE | 2021-04-09 19:41 | Electrocardiogram Report ---
Test Reason : Blood Pressure : / mmHG Vent. Rate : 069 BPM Atrial Rate : 069 BPM P-R Int : 168 ms QRS Dur : 068 ms QT Int : 426 ms P-R-T Axes : 071 061 061 degrees QTc Int : 456 ms Normal sinus rhythm Possible Left atrial enlargement Borderline ECG When compared with ECG of 29-JAN-2021 06:25, No significant change Confirmed by Romel Sheets ([id number]) on 04/09/2021 7:41:05 PM Referred By: REFERRED SELF Confirmed By:Romel Sheets
== END 2021-04-09 16:38 | disposition home or self-care (01) | DRG 683 ==
LOC: ED 02:28 → EDINP 06:48 → 2S 18:27

== ENCOUNTER 2021-04-28 18:31 | Inpatient (IN) ==
[2021-04-28] MEDS ORDERED: NALOXONE HCL 0.4 MG/1 ML VIAL/CARP ONE (18:34)
--- NOTE | 2021-04-28 18:49 | Emergency Department Note ---
History of Present Illness General Chief complaint: Overdose (Intentional) Stated complaint: UNRESPONSIVE Time Seen by Provider: 04/28/21 18:39 Source: EMS Mode of arrival: EMS Limitations: altered mental status History of Present Illness Provider complaint: Unresponsiveness Onset (ago): hour(s) Location: head Pain Consistency: + constant Quality: + other ( Unresponsive saying help me help me help me) Relieved By: + none Associated symptoms: no nausea/vomiting This is a 71-year-old female who was found by her son in her bathroom lying in brown feces. There was no blood. This was at approximately 5:15 PM today. He placed her in the bed and called EMS. He thought her legs were shaking when this occurred. The battery container tester aluminum states that she had some tremors but no seizure- like activity. On the way here she stopped moving completely for approximately 5 seconds and the V. fib alarm went off. She was given Narcan 0.4 mg IV because her pupils were pinpoint but did not have much response to it. She is a dialysis patient. The battery container tester aluminum did place a IV in her fistula as he could not get access otherwise. No further history is available due to the patient's altered mental status. Home Medications Medication Instructions Recorded Confirmed Type aspirin 81 mg tablet,delayed 81 mg PO QAM 02/18/18 04/28/21 History release (Aspirin Low Dose) fluticasone propionate 50 1 spray INTRANASAL DAILY PRN 02/18/18 04/28/21 History mcg/actuation nasal spray,suspension (Flonase Allergy Relief) levothyroxine 25 mcg tablet 25 mcg PO QAM 02/18/18 04/28/21 History montelukast 10 mg tablet 10 mg PO HS 02/18/18 04/28/21 History (Singulair) sertraline 100 mg tablet (Zoloft) 150 mg PO QAM 02/18/18 04/28/21 History sevelamer carbonate 800 mg tablet 800 mg PO TIDM 03/26/19 04/28/21 History (Renvela) amlodipine 10 mg tablet (Norvasc) 10 mg PO QAM 03/23/20 04/28/21 History linagliptin 5 mg tablet (Tradjenta) 5 mg PO QAM 03/23/20 04/28/21 History nitroglycerin 0.4 mg sublingual 0.4 mg SUBLINGUAL UD PRN 03/23/20 04/28/21 History tablet (Nitrostat) furosemide 40 mg tablet 40 mg PO QAM 01/07/21 04/28/21 History ammonium lactate 12 % topical cream 1 applic TOPICAL DAILY PRN 01/25/21 04/28/21 History buspirone 5 mg tablet 5 mg PO BID 01/25/21 04/28/21 History cholecalciferol (vitamin D3) 25 25 mcg PO DAILY 01/25/21 04/28/21 History mcg (1,000 unit) capsule (Vitamin D3) epinephrine 0.3 mg/0.3 mL 0.3 mg IM Q4H PRN 01/25/21 04/28/21 History injection, auto-injector ipratropium 0.5 mg-albuterol 3 mg 3 ml INHALATION Q4H PRN 01/25/21 04/28/21 History (2.5 mg base)/3 mL nebulization soln ondansetron HCl 8 mg tablet 8 mg PO TID PRN 01/25/21 04/28/21 History metoprolol tartrate 25 mg tablet 25 mg PO BID #60 tab 02/01/21 04/28/21 Rx albuterol sulfate 90 mcg/actuation 2 inh INHALATION Q4H PRN 04/08/21 04/28/21 History aerosol inhaler azelastine 137 mcg (0.1 %) nasal 2 spray INTRANASAL BID 04/08/21 04/28/21 History spray aerosol clopidogrel 75 mg tablet 75 mg PO DAILY 04/08/21 04/28/21 History fluticasone furoate 100 1 inh INHALATION DAILY 04/08/21 04/28/21 History mcg-vilanterol 25 mcg/dose inhalation powder (Breo Ellipta) loperamide 2 mg capsule 2 mg PO DAILY 04/08/21 04/28/21 History melatonin 3 mg tablet 3 mg PO HS #0 04/08/21 04/28/21 History ropinirole 0.25 mg tablet 0.5 mg PO HS 04/08/21 04/28/21 History hydralazine 25 mg tablet 50 mg PO BID #0 tab 04/09/21 04/28/21 Rx diphenoxylate-atropine 2.5 1 tab PO DAILY PRN 04/24/21 04/28/21 History mg-0.025 mg tablet (Lomotil) loratadine 10 mg tablet 5 mg PO DAILY 04/24/21 04/28/21 History azithromycin 250 mg tablet 250 mg PO UD 04/28/21 04/28/21 History Allergies Allergy/AdvReac Type Severity Reaction Status Date / Time bee venom protein (honey bee) Allergy Intermediate MOUTH Verified 04/28/21 19:03 SWELLING prednisone Allergy Intermediate SWELLING Verified 04/28/21 19:03 OG HANDS, ITCHING, RASH tomato Allergy Intermediate Hives Verified 04/28/21 19:03 Penicillins Allergy Mild RASH Verified 04/28/21 19:03 rosuvastatin Allergy Mild SEVERE H/A Verified 04/28/21 19:03 trazodone AdvReac Severe Confusion Verified 04/28/21 19:03 Rnbnauy-DUC-TdI Reductase AdvReac Mild EFFECTED Verified 04/28/21 19:03 Inhibitor LIVER [Lmygidv-Maa-Aru Reductase STUDIES Inhibitor] Past Med/Surg History Medical History Anemia Anxiety Asthma Uses albuterol daily. Atrial fibrillation FOLLOWED BY DR. CARROLL AV fistula Depression Diabetes mellitus, type 2 oral med End stage renal disease receiving hemodiaylsis Sunday//Saturdays in [place]. Follow[place] Dr. Ramirez ([place]). Endometriosis stage 4 GERD (gastroesophageal reflux disease) Hyperlipidemia Hypertension no medications currently - experiencing hypotension Hypothyroidism Kidney failure STAGE 4 NO DIALYSIS Migraine Myocardial Infarction 2007 Osteoarthritis Stroke X 2 2013 Surgical History History of abdominal surgery UMBILICAL MESH REMOVED (NECROTIC) History of adenoidectomy History of appendectomy History of martha hole surgery 2014 AFTER CVA TO "REMOVED FLUID" History of cardiac cath 2007 AT [facility] History of cataract surgery RT/LEFT History of section X 3 History of cholecystectomy History of colonoscopy History of coronary artery bypass graft 2007 3 [facility] AT [place] History of esophagogastroduodenoscopy (EGD) History of herniorrhaphy X 3 REPAIRS History of surgery LEFT FOOT/ANKLE FX REPAIR S/P FALL (HARDWARE) History of tonsillectomy History of tooth extraction History of total abdominal hysterectomy and bilateral salpingo-oophorectomy History of total knee replacement LEFT Hx of hand surgery LEFT HAND SURGERY "TOOK BONES OUT" S/P arteriovenous (AV) fistula creation Left arm S/P panniculectomy Family History Brother Family history of diabetes mellitus Coronary heart disease Mother Family history of diabetes mellitus Other No family history of adverse response to anesthesia Social History Smoking Status: Unknown if ever smoked Tobacco Type: Cigarettes Cigarettes Per Day: 1; Second Hand Exposure: Yes; Hx Alcohol Use: No Hx Substance Use: Yes Last Used Substance: Hours (ago) Substance Use Type Other:: unable to respond Preferred Language: Cymraes Communication Ability: Effective Visual Impairment: No Limitations Colorer Machine Required: No Beliefs That Will Affect Care: None marital status: Single Current Living Situation: Alone How many Children do You have: 1 Feels Safe at Home: Yes Assistive Devices: None Review of Systems See HPI for pertinent positives & negatives. Unobtainable due to cognitive status Physical Exam Vital Signs Vital Signs - 24 hr 04/28/21 18:37 04/28/21 18:39 04/28/21 18:40 Pulse Rate 78 55 L 58 L Pulse Rate from SpO2 Sensor 56 L 56 L Respiratory Rate 23 14 19 Respiratory Effort / Characteristics Non-Labored Spontaneous Respiratory Depth Normal Respiratory Pattern Regular Blood Pressure 225/82 H Blood Pressure Mean 129 Blood Pressure Position Sitting Pulse Oximetry 96 97 Oxygen Delivery Method Room Air Sepsis Recent Fever Within 48 Hours No Sepsis New/Unexplained Change in Mental Status No Sepsis Action Taken by Nursing No Action Required 04/28/21 18:50 04/28/21 19:00 04/28/21 19:02 Pulse Rate 62 55 L 51 L Pulse Rate from SpO2 Sensor 62 54 L 53 L Respiratory Rate 17 13 13 Respiratory Effort / Characteristics Respiratory Depth Respiratory Pattern Blood Pressure 194/70 H Blood Pressure Mean 111 Blood Pressure Position Pulse Oximetry 97 97 98 Oxygen Delivery Method Sepsis Recent Fever Within 48 Hours Sepsis New/Unexplained Change in Mental Status Sepsis Action Taken by Nursing 04/28/21 19:10 04/28/21 19:29 04/28/21 19:30 Pulse Rate 48 L 55 L Pulse Rate from SpO2 Sensor 50 L 52 L 55 L Respiratory Rate 11 L 15 Respiratory Effort / Characteristics Respiratory Depth Respiratory Pattern Blood Pressure Blood Pressure Mean Blood Pressure Position Pulse Oximetry 98 98 92 Oxygen Delivery Method Sepsis Recent Fever Within 48 Hours Sepsis New/Unexplained Change in Mental Status Sepsis Action Taken by Nursing 04/28/21 19:31 04/28/21 19:40 04/28/21 19:50 Pulse Rate 58 L 54 L 56 L Pulse Rate from SpO2 Sensor 58 L 54 L 54 L Respiratory Rate 15 14 13 Respiratory Effort / Characteristics Respiratory Depth Respiratory Pattern Blood Pressure 220/75 H Blood Pressure Mean 123 Blood Pressure Position Pulse Oximetry 96 97 96 Oxygen Delivery Method Room Air Sepsis Recent Fever Within 48 Hours Sepsis New/Unexplained Change in Mental Status Sepsis Action Taken by Nursing 04/28/21 20:00 04/28/21 20:01 04/28/21 20:10 Pulse Rate 51 L 51 L 53 L Pulse Rate from SpO2 Sensor 51 L 51 L 52 L Respiratory Rate 11 L 12 12 Respiratory Effort / Characteristics Respiratory Depth Respiratory Pattern Blood Pressure 201/67 H Blood Pressure Mean 111 Blood Pressure Position Pulse Oximetry 97 97 97 Oxygen Delivery Method Sepsis Recent Fever Within 48 Hours Sepsis New/Unexplained Change in Mental Status Sepsis Action Taken by Nursing 04/28/21 20:16 04/28/21 20:20 04/28/21 20:30 Pulse Rate 59 L 53 L 53 L Pulse Rate from SpO2 Sensor 52 L 52 L Respiratory Rate 14 9 L 13 Respiratory Effort / Characteristics Respiratory Depth Respiratory Pattern Blood Pressure 189/62 H 194/67 H Blood Pressure Mean 104 109 Blood Pressure Position Pulse Oximetry 99 100 Oxygen Delivery Method Sepsis Recent Fever Within 48 Hours Sepsis New/Unexplained Change in Mental Status Sepsis Action Taken by Nursing The physical exam is limited due to the patient's condition. Constitutional: Vital signs reviewed. Eyes: Pupils are pinpoint and reactive to light bilaterally. Conjunctiva are noninjected. HENT: Normocephalic atraumatic. Respiratory: Clear to auscultation bilaterally. Breath sounds are equal bilaterally. Cardiovascular: Irregularly irregular rhythm. Normal rate. GI: Soft, nondistended and nontender. Bowel sounds are present. Musculoskeletal: No peripheral edema. Abrasion right knee. Fistula left upper extremity with an IV in place. Integumentary: No cyanosis. Neurological: The patient is somnolent but arousable. Moves all extremities. Says "help me help me help me " Psychiatric: Unable to assess. Course Administered Medications Discontinued Medications Hydralazine HCl (Hydralazine Hcl 20 Mg/Ml Vial) 10 mg IV NOW STA Stop: 04/28/21 19:47 Last Admin: 04/28/21 20:04 Dose: 10 mg Documented by: [id number] Critical Care Time Critical Care Time: Yes Total Critical Care Time: 35 I have personally spent approximately 35 minutes of critical care time in the direct management of this patient. This includes bedside care, interpretation of diagnostic studies, and testing, discussion with consultants, patient, and family members, and other required patient management activities. These minutes are in excess of all separately billable procedures. Medical Decision Making Differential Diagnosis Opiate overdose, intracranial hemorrhage, syncope, dysrhythmia, metabolic derangement Medical Records Attestation: I reviewed the patient's medical records. I did perform a limited focused review of portions of the patient's old chart on the electronic medical record. The patient was seen here yesterday for chest pain, shortness of breath on exertion as well as palpitations. She has atrial fibrillation and was advised to be on anticoagulants but refused. She was discharged for outpatient follow-up. Home Medications Current Medication List: was personally reviewed by me Laboratory Data Attestation: I reviewed the patient's lab results. Result diagrams: 04/28/21 18:54 04/28/21 18:54 Lab Results 04/28/21 04/28/21 04/28/21 Range/Units 18:54 18:54 18:54 WBC 7.93 (4.8-10.8) K/uL RBC 3.88 L (4.2-5.4) M/uL Hgb 11.9 L (12.0-16.0) g/dL Hct 37.3 (37-47) % MCV 96.1 (80-100) fL MCH 30.7 (25-34) pg MCHC 31.9 L (32-36) g/dL RDW Std Deviation 53.3 H (36.4-46.3) fL RDW Coeff of Odilon 15.2 H (11.5-14.5) % Plt Count 212 (130-400) K/uL MPV 10.2 (7.4-10.4) fL Immature Gran % (Auto) 0.3 % Neut % (Auto) 81.6 % Lymph % (Auto) 13.2 % Trigg % (Auto) 3.5 % Eos % (Auto) 1.1 % Baso % (Auto) 0.3 % Neut # (Auto) 6.47 (1.4-6.5) K/uL Lymph # (Auto) 1.05 L (1.2-3.4) K/uL Trigg # (Auto) 0.28 (0.11-0.59) K/uL Eos # (Auto) 0.09 (0-0.5) K/uL Baso # (Auto) 0.02 (0-0.2) K/uL Immature Gran # (Auto) 0.02 (0.00-0.02) K/uL Sodium 141 (136-145) mmol/L Potassium 5.0 (3.5-5.1) mmol/L Chloride 102 (98-107) mmol/L Carbon Dioxide 28 (21-32) mmol/L Anion Gap 11 (3-11) BUN 68 H (6-23) mg/dl Creatinine 5.13 H* D (0.6-1.2) mg/dl Est Cr Clr Drug Dosing 9.1 ml/min Est GFR ( Amer) 9.0 ml/min Est GFR (Non-Af Amer) 7.7 ml/min BUN/Creatinine Ratio 13.3 (10-20) Glucose 143 H (70-99(Fasting)) mg/dl Calcium 9.0 (8.5-10.1) mg/dl Magnesium 2.6 H (1.7-2.4) mg/dl Total Bilirubin 0.5 (0.2-1.0) mg/dl AST 16 (13-39) U/L ALT 15 (7-52) U/L Alkaline Phosphatase 103 (34-104) U/L Troponin I < 0.03 (0-0.04) ng/ml Total Protein 6.9 (6.0-8.3) gm/dl Albumin 3.9 (3.4-5.0) gm/dl Globulin 3.0 (2.5-4.0) gm/dl Albumin/Globulin Ratio 1.3 (0.9-2) Lipase 59 (11-82) U/L Urine Color Urine Appearance (Clear) Urine pH (4.5-7.5) Ur Specific [place] (1.000-1.030) Urine Protein (Negative) Urine Glucose (UA) (Negative) Urine Ketones (Negative) Urine Blood (Negative) Urine Nitrite (Negative) Urine Bilirubin (Negative) Urine Urobilinogen (Negative) Ur Leukocyte Esterase (Negative) Urine WBC (Auto) (0-5) /hpf Urine RBC (Auto) (0-4) /hpf U Hyaline Cast (Auto) (0-5) /lpf U Epithel Cells (Auto) (0-5) /lpf Urine Bacteria (Auto) (Negative) Salicylates (3.0-30) mg/dl Urine Opiates Screen (Neg) Ur Methadone, Qual (Neg) Acetaminophen (10-30) ug/ml Urine Barbiturates (Neg) Ur Phencyclidine (PCP) (Neg) U Amphetamin/Meth Scrn (Neg) MDMA (Ecstasy) Screen (Neg) U Benzodiazepines Scrn (Neg) Ur Cocaine Metabolite (Neg) U Marijuana (THC) Screen (Neg) Ethyl Alcohol mg/dL (<10.0) mg/dl 04/28/21 04/28/21 04/28/21 Range/Units 18:54 18:54 19:16 WBC (4.8-10.8) K/uL RBC (4.2-5.4) M/uL Hgb (12.0-16.0) g/dL Hct (37-47) % MCV (80-100) fL MCH (25-34) pg MCHC (32-36) g/dL RDW Std Deviation (36.4-46.3) fL RDW Coeff of Odilon (11.5-14.5) % Plt Count (130-400) K/uL MPV (7.4-10.4) fL Immature Gran % (Auto) % Neut % (Auto) % Lymph % (Auto) % Trigg % (Auto) % Eos % (Auto) % Baso % (Auto) % Neut # (Auto) (1.4-6.5) K/uL Lymph # (Auto) (1.2-3.4) K/uL Trigg # (Auto) (0.11-0.59) K/uL Eos # (Auto) (0-0.5) K/uL Baso # (Auto) (0-0.2) K/uL Immature Gran # (Auto) (0.00-0.02) K/uL Sodium (136-145) mmol/L Potassium (3.5-5.1) mmol/L Chloride (98-107) mmol/L Carbon Dioxide (21-32) mmol/L Anion Gap (3-11) BUN (6-23) mg/dl Creatinine (0.6-1.2) mg/dl Est Cr Clr Drug Dosing ml/min Est GFR ( Amer) ml/min Est GFR (Non-Af Amer) ml/min BUN/Creatinine Ratio (10-20) Glucose (70-99(Fasting)) mg/dl Calcium (8.5-10.1) mg/dl Magnesium (1.7-2.4) mg/dl Total Bilirubin (0.2-1.0) mg/dl AST (13-39) U/L ALT (7-52) U/L Alkaline Phosphatase (34-104) U/L Troponin I (0-0.04) ng/ml Total Protein (6.0-8.3) gm/dl Albumin (3.4-5.0) gm/dl Globulin (2.5-4.0) gm/dl Albumin/Globulin Ratio (0.9-2) Lipase (11-82) U/L Urine Color Yellow Urine Appearance Clear (Clear) Urine pH 8.0 H (4.5-7.5) Ur Specific [place] 1.013 (1.000-1.030) Urine Protein 3+ H (Negative) Urine Glucose (UA) Negative (Negative) Urine Ketones Negative (Negative) Urine Blood Negative (Negative) Urine Nitrite Negative (Negative) Urine Bilirubin Negative (Negative) Urine Urobilinogen Negative (Negative) Ur Leukocyte Esterase Negative (Negative) Urine WBC (Auto) 1-5 (0-5) /hpf Urine RBC (Auto) 0-4 (0-4) /hpf U Hyaline Cast (Auto) 0 (0-5) /lpf U Epithel Cells (Auto) 5-10 H (0-5) /lpf Urine Bacteria (Auto) Negative (Negative) Salicylates < 3.0 L (3.0-30) mg/dl Urine Opiates Screen (Neg) Ur Methadone, Qual (Neg) Acetaminophen 3 L (10-30) ug/ml Urine Barbiturates (Neg) Ur Phencyclidine (PCP) (Neg) U Amphetamin/Meth Scrn (Neg) MDMA (Ecstasy) Screen (Neg) U Benzodiazepines Scrn (Neg) Ur Cocaine Metabolite (Neg) U Marijuana (THC) Screen (Neg) Ethyl Alcohol mg/dL < 10.0 (<10.0) mg/dl 04/28/21 Range/Units 19:16 WBC (4.8-10.8) K/uL RBC (4.2-5.4) M/uL Hgb (12.0-16.0) g/dL Hct (37-47) % MCV (80-100) fL MCH (25-34) pg MCHC (32-36) g/dL RDW Std Deviation (36.4-46.3) fL RDW Coeff of Odilon (11.5-14.5) % Plt Count (130-400) K/uL MPV (7.4-10.4) fL Immature Gran % (Auto) % Neut % (Auto) % Lymph % (Auto) % Trigg % (Auto) % Eos % (Auto) % Baso % (Auto) % Neut # (Auto) (1.4-6.5) K/uL Lymph # (Auto) (1.2-3.4) K/uL Trigg # (Auto) (0.11-0.59) K/uL Eos # (Auto) (0-0.5) K/uL Baso # (Auto) (0-0.2) K/uL Immature Gran # (Auto) (0.00-0.02) K/uL Sodium (136-145) mmol/L Potassium (3.5-5.1) mmol/L Chloride (98-107) mmol/L Carbon Dioxide (21-32) mmol/L Anion Gap (3-11) BUN (6-23) mg/dl Creatinine (0.6-1.2) mg/dl Est Cr Clr Drug Dosing ml/min Est GFR ( Amer) ml/min Est GFR (Non-Af Amer) ml/min BUN/Creatinine Ratio (10-20) Glucose (70-99(Fasting)) mg/dl Calcium (8.5-10.1) mg/dl Magnesium (1.7-2.4) mg/dl Total Bilirubin (0.2-1.0) mg/dl AST (13-39) U/L ALT (7-52) U/L Alkaline Phosphatase (34-104) U/L Troponin I (0-0.04) ng/ml Total Protein (6.0-8.3) gm/dl Albumin (3.4-5.0) gm/dl Globulin (2.5-4.0) gm/dl Albumin/Globulin Ratio (0.9-2) Lipase (11-82) U/L Urine Color Urine Appearance (Clear) Urine pH (4.5-7.5) Ur Specific [place] (1.000-1.030) Urine Protein (Negative) Urine Glucose (UA) (Negative) Urine Ketones (Negative) Urine Blood (Negative) Urine Nitrite (Negative) Urine Bilirubin (Negative) Urine Urobilinogen (Negative) Ur Leukocyte Esterase (Negative) Urine WBC (Auto) (0-5) /hpf Urine RBC (Auto) (0-4) /hpf U Hyaline Cast (Auto) (0-5) /lpf U Epithel Cells (Auto) (0-5) /lpf Urine Bacteria (Auto) (Negative) Salicylates (3.0-30) mg/dl Urine Opiates Screen Neg (Neg) Ur Methadone, Qual Neg (Neg) Acetaminophen (10-30) ug/ml Urine Barbiturates Neg (Neg) Ur Phencyclidine (PCP) Neg (Neg) U Amphetamin/Meth Scrn Neg (Neg) MDMA (Ecstasy) Screen Neg (Neg) U Benzodiazepines Scrn Neg (Neg) Ur Cocaine Metabolite Neg (Neg) U Marijuana (THC) Screen Neg (Neg) Ethyl Alcohol mg/dL (<10.0) mg/dl Imaging Data Radiologist's Impression: Cervical Spine CT 04/28/21 18:39 CT SCAN OF THE CERVICAL SPINE CLINICAL HISTORY: Fall. COMPARISON STUDY: CT of the cervical spine dated 04/08/2021. TECHNIQUE: CT scan of the cervical spine is performed from the skull base to the upper thoracic spine. Images are reviewed in the axial, sagittal, and coronal planes. IV contrast was not administered for this examination. A dose lowering technique was utilized adhering to the principles of ALARA. FINDINGS: Skeletal structures: The skeletal structures are osteopenic. There is no evidence of fracture or subluxation involving the cervical spine. Vertebral body height and alignment are maintained. The odontoid process and lateral masses are intact. The atlantoaxial articulation is preserved noting advanced productive degenerative change. Chronic deformity of the spinous processes of C2 is unchanged from prior studies. The spinous processes are otherwise intact. There is moderate multilevel cervical spondylosis. Uncovertebral and facet arthropathy contribute to neural foraminal stenosis at several levels. Intervertebral discs: There is straightening of the cervical lordosis. Anterior osteophytes are seen throughout. There is moderate disc space narrowing seen at C4-C5, C5-C6, and C6-C7 with associated endplate sclerosis. Central canal: Posterior disc osteophyte complexes at C4-C5, C5-C6, and C6-C7 li samara contribute to acquired compromise of the central canal. Soft tissues: The prevertebral and paraspinous soft tissues are within normal limits. There is an 8 mm low-attenuation nodule in the right lobe of the thyroid gland. Calvarium: The visualized calvarium at the skull base appears intact. Brain parenchyma: Partially visualized brain parenchyma the skull base is within normal limits. Sinuses and mastoids: The visualized paranasal sinuses are clear. The mastoid air cells are well pneumatized. Lung apices: Clear as visualized. IMPRESSION: 1. There is no evidence of fracture or subluxation involving the cervical spine. 2. Osteopenia and spondylotic change as above. ACT 112: Negative or not required by law. Electronically signed by: Ricki Raza M.D. 04/28/2021 7:44 PM Chest X-Ray 04/28/21 18:39 SINGLE VIEW CHEST CLINICAL HISTORY: Change in mental status. FINDINGS: An AP, portable, supine chest radiograph is compared to study dated 04/27/2021 and correlated with chest CT dated 04/08/2021. The examination is degraded by portable technique and patient rotation. The patient is status post midline sternotomy. The heart is enlarged noting atherosclerotic calcification of the thoracic aorta. The pulmonary vasculature is noncongested. Chronic interstitial thickening is similar to previous. No airspace consolidation or large pleural effusion is identified. Atelectasis is seen at the lung bases. No pneumothorax is seen. The skeletal structures are osteopenic. The bony thorax is grossly intact. IMPRESSION: Cardiomegaly with no active disease in the chest. ACT 112: Negative or not required by law. Electronically signed by: Ricki Raza M.D. 04/28/2021 8:[address] 04/28/21 18:40 CT SCAN OF THE BRAIN WITHOUT IV CONTRAST CLINICAL HISTORY: Change in mental status. Unresponsive. COMPARISON STUDY: CT of the brain dated 04/24/2021. TECHNIQUE: Unenhanced axial CT scan of the brain is performed from the vertex to the skull base. A dose lowering technique was utilized adhering to the principles of ALARA. The patient was scanned twice due to motion artifact. CT DOSE: 1601.97 mGy.cm FINDINGS: Brain parenchyma: There are age-related involutional changes noting mild to moderate subcortical and periventricular microangiopathic change. There is no hemorrhage, mass effect, or evidence of acute territorial ischemia by CT criteria. Pal-white matter differentiation is preserved. No extra-axial fluid collection is seen. Ventricles, sulci, cisterns: Prominent secondary to involutional change. Intracranial vasculature: There is atherosclerotic calcification of the cavernous carotid and vertebral arteries. Calvarium: Unremarkable. Sinuses and mastoids: The visualized paranasal sinuses are clear. The mastoid air cells are well pneumatized. Orbits: The bony orbits are grossly intact. There are bilateral ocular lens implants. IMPRESSION: There is no hemorrhage, mass effect, or evidence of acute territo rial ischemia by CT criteria. ACT 112: Negative or not required by law. Electronically signed by: Ricki Raza M.D. 04/28/2021 7:37 PM ECG Data Attestation: I personally reviewed and interpreted this ECG as follows: Indication: + altered mental status Rate (beats per minute): 62 Rhythm: + atrial fibrillation ECG [place]: + Normal ECG ST segments: + Nonspecific ST abnormalities ECG Findings: no PVCs Comparison ECG Date: from (April 27, 2020) Change: the following changes noted (Previously in normal sinus rhythm) MDM Narrative I did provide prehospital medical command for the patient. She was given Narcan 0.4 mg IV with minimal response. I did evaluate the patient immediately on arrival. She was placed in a cervical collar as she was found on the ground in the bathroom. The battery container tester aluminum brought a tracing in which she thought was possibly ventricular fibrillation. The patient supposedly was unresponsive and still for about 5 seconds and the V. fib alarm went off. I did look at the tracing myself and looking in it there are regular complexes within the rhythm suggesting that this is likely not V. fib and simply motion artifact. Currently she is verbally unresponsive other than saying help me. I did place an order for continuous cardiac monitoring. The monitor showed atrial fibrillation at a rate of 68 bpm. I did order and personally review the patient's 12-lead EKG as described above. She has A. fib with motion artifact. I did order and personally reviewed the images of the patient's chest x-ray as described above. No pneumonia is noted. I did order a urine analysis. There is no evidence of infection. Urine tox screen is negative. I did order and review the patient's blood work as noted in the electronic medical record. Her white count is not elevated. She has a hemoglobin 11.9 and platelet count of 212. Her electrolytes are unremarkable other than the mag of 2.6. Her creatinine is 5.13 as she is a dialysis patient. Troponin is negative. LFTs and lipase are within normal limits. I did order a CT of the head and cervical spine. I did review the images myself as well as the radiology report as described above. There is no evidence of acute intracranial abnormality or cervical fracture. I did reassess the patient multiple times. She remains severely hypertensive. I did treat her with hydralazine 10 mg IV. The patient continues to be unresponsive. She will awaken to sternal rub but is mostly unintelligible. She will be hospitalized for further care and evaluation. She was hospitalized in January for similar symptoms and had a negative MRI of the brain. She had been given Narcan during that admission and had questionable seizure-like activity. She therefore had an EEG which did not show any epileptiform activity. Her blood pressure did improve to 194/67. We will continue to monitor. Testing for oxycodone and oxymorphone was sent and is pending. I did discuss the case with the hospi talist and manager rn case. Impression & Plan Acute alteration in mental status, ESRD (end stage renal disease) on dialysis, Hypertensive urgency Discharge Plan Visit Data Chief Complaint: Overdose (Intentional) Stated Complaint: UNRESPONSIVE ED Provider: Macario Mccord Discharge Problem: Acute alteration in mental status, ESRD (end stage renal disease) on dialysis, Hypertensive urgency Patient Disposition: Being Evaluated by Hospitalist Forms Stand Alone Forms: My [facility], Suicide Prevention Resources Prescriptions Prescriptions: No Action amlodipine [Norvasc] 10 mg tablet 10 mg PO QAM RF: 0 Tradjenta 5 mg Tablet 5 mg PO QAM RF: 0 nitroglycerin [Nitrostat] 0.4 mg Tablet, Sublingual 0.4 mg sublingual UD PRN (Reason: Angina) RF: 0 sertraline [Zoloft] 100 mg Tablet 150 mg PO QAM RF: 0 aspirin [Aspirin Low Dose] 81 mg Tablet,Delayed Release (Dr/Ec) 81 mg PO QAM RF: 0 levothyroxine 25 mcg Tablet 25 mcg PO QAM RF: 0 montelukast [Singulair] 10 mg Tablet 10 mg PO HS RF: 0 fluticasone propionate [Flonase Allergy Relief] 50 mcg/actuation [place],Suspension 1 spray INTRANASAL DAILY PRN (Reason: Nasal Congestion) RF: 0 sevelamer carbonate [Renvela] 800 mg Tablet 800 mg PO TIDM RF: 0 furosemide 40 mg tablet 40 mg PO QAM RF: 0 buspirone 5 mg tablet 5 mg PO BID RF: 0 ipratropium-albuterol 0.5 mg-3 mg(2.5 mg base)/3 mL Solution For Nebulization 3 ml INHALATION Q4H PRN (Reason: Shortness Of Breath) RF: 0 ondansetron HCl 8 mg tablet 8 mg PO TID PRN (Reason: Nausea) RF: 0 ammonium lactate 12 % Cream 1 applic TOPICAL DAILY PRN (Reason: .) RF: 0 epinephrine 0.3 mg/0.3 mL Auto-Injector 0.3 mg IM Q4H PRN (Reason: Anaphylaxis) RF: 0 cholecalciferol (vitamin D3) [Vitamin D3] 25 mcg (1,000 unit) Capsule 25 mcg PO DAILY RF: 0 metoprolol tartrate 25 mg Tablet 25 mg PO BID Qty: 60 RF: 0 loperamide 2 mg capsule 2 mg PO DAILY RF: 0 ropinirole 0.25 mg tablet 0.5 mg PO HS RF: 0 albuterol sulfate 90 mcg/actuation HFA aerosol inhaler 2 inh INHALATION Q4H PRN (Reason: Shortness Of Breath) RF: 0 clopidogrel 75 mg tablet 75 mg PO DAILY RF: 0 melatonin 3 mg Tablet 3 mg PO HS Qty: 0 RF: 0 azelastine 137 mcg (0.1 %) aerosol,spray 2 spray INTRANASAL BID RF: 0 Breo Ellipta 100-25 mcg/dose blister with device 1 inh INHALATION DAILY RF: 0 hydralazine 25 mg tablet 50 mg PO BID Qty: 0 RF: 0 diphenoxylate-atropine [Lomotil] 2.5-0.025 mg Tablet 1 tab PO DAILY PRN (Reason: Diarrhea) RF: 0 loratadine 10 mg Tablet 5 mg PO DAILY RF: 0 azithromycin 250 mg tablet 250 mg PO UD RF: 0 Referrals Referrals: Ac Mcmanus DO [Primary Care Provider] -
[2021-04-28 19:19] LABS: Basophils # (auto) 0.02 K/uL (0-0.2); Basophils % (auto) 0.3 %; Eosinophils # (auto) 0.09 K/uL (0-0.5); Eosinophils % (auto) 1.1 %; Hematocrit (blood only) 37.3 % (37-47); Hemoglobin 11.9 g/dL (12.0-16.0); Immature Granulocytes # (auto) 0.02 K/uL (0.00-0.02); Immature Granulocytes % (auto) 0.3 %; Lymphocytes # (auto) 1.05 K/uL (1.2-3.4); Lymphocytes % (auto) 13.2 %; Mean Corpuscular Hemoglobin 30.7 pg (25-34); Mean Corpuscular Hgb Conc 31.9 g/dL (32-36); Mean Corpuscular Volume 96.1 fL (80-100); Mean Platelet Volume 10.2 fL (7.4-10.4); Monocytes # (auto) 0.28 K/uL (0.11-0.59); Monocytes % (auto) 3.5 %; Neutrophils # (auto) 6.47 K/uL (1.4-6.5); Neutrophils % (auto) 81.6 %; Platelet Count 212 K/uL (130-400); RDW Coefficient of Variation 15.2 % (11.5-14.5); RDW Standard Deviation 53.3 fL (36.4-46.3); Red Blood Count 3.88 M/uL (4.2-5.4); White Blood Count 7.93 K/uL (4.8-10.8)
--- NOTE | 2021-04-28 19:39 | CT Scan Report ---
CT SCAN OF THE BRAIN WITHOUT IV CONTRAST CLINICAL HISTORY: Change in mental status. Unresponsive. COMPARISON STUDY: CT of the brain dated 04/24/2021. TECHNIQUE: Unenhanced axial CT scan of the brain is performed from the vertex to the skull base. A do se lowering technique was utilized adhering to the principles of ALARA. The patient was scanned twice due to motion artifact. CT DOSE: 1601.97 mGy.cm FINDINGS: Brain parenchyma: There are age-related involutional changes noting mild to moderate subcortical and periventricular microangiopathic change. There is no hemorrhage, mass effect, or evidence of acute t erritorial ischemia by CT criteria. Pal-white matter differentiation is preserved. No extra-axial fl uid collection is seen. Ventricles, sulci, cisterns: Prominent secondary to involutional change. Intracranial vasculature: There is atherosclerotic calcification of the cavernous carotid and vertebr al arteries. Calvarium: Unremarkable. Sinuses and mastoids: The visualized paranasal sinuses are clear. The mastoid air cells are well pneu matized. Orbits: The bony orbits are grossly intact. There are bilateral ocular lens implants. IMPRESSION: There is no hemorrhage, mass effect, or evidence of acute territorial ischemia by CT charles cuello. ACT 112: Negative or not required by law. Electronically signed by: Ricki Raza M.D. 04/28/2021 7:37 PM
[2021-04-28 19:42] LABS: Troponin I < 0.03 ng/ml (0-0.04)
[2021-04-28 19:44] LABS: Albumin Globulin Ratio 1.3 (0.9-2); Albumin Level 3.9 gm/dl (3.4-5.0); BUN Creatinine Ratio 13.3 (10-20); Bilirubin,Total 0.5 mg/dl (0.2-1.0); Creatinine Clr Calc Pharmacy 9.1 ml/min; Est GFR (Non-African American) 7.7 ml/min; Total Protein 6.9 gm/dl (6.0-8.3)
--- NOTE | 2021-04-28 19:45 | CT Scan Report ---
CT SCAN OF THE CERVICAL SPINE CLINICAL HISTORY: Fall. COMPARISON STUDY: CT of the cervical spine dated 04/08/2021. TECHNIQUE: CT scan of the cervical spine is performed from the skull base to the upper thoracic spine . Images are reviewed in the axial, sagittal, and coronal planes. IV contrast was not administered fo r this examination. A dose lowering technique was utilized adhering to the principles of ALARA. FINDINGS: Skeletal structures: The skeletal structures are osteopenic. There is no evidence of fracture or subl uxation involving the cervical spine. Vertebral body height and alignment are maintained. The odonto id process and lateral masses are intact. The atlantoaxial articulation is preserved noting advanced productive degenerative change. Chronic deformity of the spinous processes of C2 is unchanged from pr ior studies. The spinous processes are otherwise intact. There is moderate multilevel cervical spondy losis. Uncovertebral and facet arthropathy contribute to neural foraminal stenosis at several levels. Intervertebral discs: There is straightening of the cervical lordosis. Anterior osteophytes are seen throughout. There is moderate disc space narrowing seen at C4-C5, C5-C6, and C6-C7 with associated en dplate sclerosis. Central canal: Posterior disc osteophyte complexes at C4-C5, C5-C6, and C6-C7 likely contribute to ac quired compromise of the central canal. Soft tissues: The prevertebral and paraspinous soft tissues are within normal limits. There is an 8 m m low-attenuation nodule in the right lobe of the thyroid gland. Calvarium: The visualized calvarium at the skull base appears intact. Brain parenchyma: Partially visualized brain parenchyma the skull base is within normal limits. Sinuses and mastoids: The visualized paranasal sinuses are clear. The mastoid air cells are well pneu matized. Lung apices: Clear as visualized. IMPRESSION: 1. There is no evidence of fracture or subluxation involving the cervical spine. 2. Osteopenia and spondylotic change as above. ACT 112: Negative or not required by law. Electronically signed by: Ricki Raza M.D. 04/28/2021 7:44 PM
[2021-04-28] MEDS ORDERED: hydrALAZINE HCL 20 MG/ML VIAL IV STA (19:46)
[2021-04-28 19:49] LABS: Acetaminophen 3 ug/ml (10-30); Salicylate < 3.0 mg/dl (3.0-30)
[2021-04-28 19:49] LABS: Appearance Urine Clear (Clear); Bacteria Urine Automated Negative (Negative); Bilirubin Urine Negative (Negative); Blood Urine Negative (Negative); Cast Urine Automated 0 /lpf (0-5); Color Urine Yellow; Glucose Urine UA Negative (Negative); Ketones Urine Negative (Negative); Leukocyte Esterase Urine Negative (Negative); Nitrite Urine Negative (Negative); RBC Urine Automated 0-4 /hpf (0-4); Specific Gravity Urine 1.013 (1.000-1.030); Urobilinogen Urine Negative (Negative)
[2021-04-28 19:52] LABS: Protein Urine 3+ (Negative)
[2021-04-28 19:57] LABS: Lipase 59 U/L (11-82); Magnesium 2.6 mg/dl (1.7-2.4)
[2021-04-28 20:03] LABS: Amphetamines+Metham, Urine Neg (Neg); Barbiturates, Urine Neg (Neg); Benzodiazepine, Urine Neg (Neg); Cocaine, Urine Neg (Neg); MDMA (Ecstacy), Urine Neg (Neg); Methadone, Urine Neg (Neg); Opiate, Urine Neg (Neg); Phencyclidine, Urine Neg (Neg)
--- NOTE | 2021-04-28 20:24 | XRay Report ---
SINGLE VIEW CHEST CLINICAL HISTORY: Change in mental status. FINDINGS: An AP, portable, supine chest radiograph is compared to study dated 04/27/2021 and correlate d with chest CT dated 04/08/2021. The examination is degraded by portable technique and patient rotat ion. The patient is status post midline sternotomy. The heart is enlarged noting atherosclerotic calc ification of the thoracic aorta. The pulmonary vasculature is noncongested. Chronic interstitial thic kening is similar to previous. No airspace consolidation or large pleural effusion is identified. Ate lectasis is seen at the lung bases. No pneumothorax is seen. The skeletal structures are osteopenic. The bony thorax is grossly intact. IMPRESSION: Cardiomegaly with no active disease in the chest. ACT 112: Negative or not required by law. Electronically signed by: Ricki Raza M.D. 04/28/2021 8:23 PM
[2021-04-29] MEDS ORDERED: NITROGLYCERIN SL 0.4 MG/TAB TAB SL PRN ×2 (00:28)
[2021-04-29] MEDS ORDERED: ALBUTEROL HFA 8 GM INHALER INH PRN (00:28)
[2021-04-29] MEDS ORDERED: FLUTICASONE PROPIONATE NA SPR 16 GM BTL PRN (00:28)
[2021-04-29] MEDS ORDERED: ACETAMINOPHEN 325 MG TAB PO PRN (00:28)
[2021-04-29] MEDS ORDERED: hydrALAZINE HCL 20 MG/ML VIAL IV PRN ×2 (00:28→09:46)
[2021-04-29] MEDS ORDERED: ALBUT/IPRATROP 3MG/0.5MG NEB 3 ML VIAL INH PRN (00:28)
--- NOTE | 2021-04-29 00:37 | History and Physical Report ---
DATE OF ADMISSION: 04/28/2021. CHIEF COMPLAINT: Unresponsive episode. 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 The patient lives with her son and was brought in because of unresponsiveness. The patient was found by her son in the bathroom with faeces there was no blood. This was approximately around 5:15 p.m. today. EMS was called. They thought could be some shaking of the leg, some tremors, no seizure-like activity. On the way,v fib alaram went off. She was given Narcan 0.4 mg because of pinpoint pupils, but did not have much response. In the ER, the patient was evaluated v fib was thought to be artifact. The patient had similar episodes in January, thought to be from polypharmacy and narcotic overdose and marijuana. As per the son, since then she is not using marijuana and she was here again on 04/08/2021 with confusion. She was on the floor confused at that time. At that time, thought to be possibly hypertensive encephalopathy. There was a plan to rule out seizures as outpatient, but as per son she did not follow up with neurology because of the snow. Currently, the patient is very drowsy, opens eyes on calling and could tell her name, but she goes back to sleep and could not get any history from the patient. She is afebrile, hemodynamically stable. Labs look okay. Urine drug screen, unremarkable.Labs for buprenorphine and oxycodone are pending. ALLERGIES: BEE VENOM, PREDNISONE, TOMATO, PENICILLINS, LOVASTATIN, TRAZODONE, STATIN. PAST MEDICAL HISTORY: As mentioned above. PAST SURGICAL HISTORY: AV access, CABG, left ankle bimalleolar ankle fixation, , colonoscopies, EGDs, EGD with endoscopic ultrasound, laparoscopic insertion of intraperitoneal cannula, tonsillectomy, adenoidectomy, sacroiliac joint injection, repair of inguinal hernia, total abdominal hysterectomy with removal of tubes, umbilical hernia repair. MEDICATIONS: The patient is on albuterol 2 puffs inhalation q. 4 hours p.r.n., amlodipine 10 mg p.o. a.m., aspirin 81 mg p.o. a.m., azelastine 2 sprays intranasal b.i.d., azithromycin as directed, Breo Ellipta 1 inhalation daily, buspirone 5 mg p.o. b.i.d., vitamin D 25 mcg p.o. daily, Plavix 75 mg p.o. daily, Lomotil 1 tablet p.o. daily p.r.n., epinephrine 0.3 mg IM q. 4 hours p.r.n., Flonase 1 spray daily p.r.n., Lasix 40 mg p.o. a.m., hydralazine 50 mg p.o. b.i.d., DuoNebs q. 4 hours p.r.n., levothyroxine 25 mcg p.o. a.m., loperamide daily, loratadine 5 mg p.o. daily, melatonin 3 mg p.o. at bedtime, metoprolol tartrate 25 mg p.o. b.i.d., Singulair 10 mg p.o. at bedtime, nitroglycerin 0.4 mg sublingual p.r.n., Zofran 8 mg p.o. t.i.d. p.r.n., ropinirole 0.5 mg p.o. at bedtime, Zoloft 150 mg p.o. a.m., Renvela 800 mg p.o. t.i.d. Tradjenta 5 mg p.o. a.m. FAMILY HISTORY: Significant for brother has allergies; mother has allergies, brother has diabetes, CABG; cousin has breast cancer; paternal aunt has breast cancer. SOCIAL HISTORY: Quit smoking in May 2018, smoked 0.3 packs a day for 15 years. No alcohol use. No drug use. REVIEW OF SYSTEMS: Unobtainable at this time. PHYSICAL EXAMINATION: GENERAL: The patient is very drowsy, opens eyes on calling and goes back to sleep, not in acute distress. VITAL SIGNS: Temperature afebrile, pulse 53, respiratory rate 13, blood pressure 194/67, oxygen 100% on room air. HEENT: Pupils are pinpoint, sluggish to react. No icterus seen. No facial droop, nontraumatic. NECK: No JVD. No neck masses. CARDIOVASCULAR: S1 and S2 heard. Regular rate and rhythm. No murmur, no gallop. RESPIRATORY SYSTEM: Normal AP diameter. No accessory muscle use. No wheezing, no crackles. ABDOMEN: Soft, bowel sounds present, no distention, CENTRAL NERVOUS SYSTEM: Drowsy, opens eyes on calling and can tell her name and goes back to sleep. Seems to be moving her extremities. EXTREMITIES: No edema, no erythema. LABORATORY DATA: WBC 7.9, hemoglobin 11.9, hematocrit 37.3, platelets 212. Sodium 141, potassium 5, chloride 102, bicarbonate 28, BUN 68, creatinine 5.1, serum glucose 143, calcium 9, magnesium 2.6, total bilirubin 0.5, AST 16, ALT 15, alkaline phosphatase 103. Troponin I less than 0.03, lipase 59. Urinalysis, +3 protein. Urine drug screen, salicylates less than 3, acetaminophen 3, ethyl alcohol less than 10. IMAGING DATA: CT of the head, no acute findings. Chest x-ray, no acute findings. Cervical spine CT, no acute findings. EKG: Normal sinus rhythm at a rate 70, no acute ST changes seen. ASSESSMENT AND PLAN: This is a 71-year-old female who presents with unresponsive episode. 1. Unresponsive episode: Questionable polypharmacy, questionable hypertensive encephalopathy, questionable seizures. She did have similar episodes in the past. At one point thought to be from polypharmacy and narcotic abuse. On last admission was thought to be hypertensive encephalopathy, supposed to rule out seizures. Currently, hemodynamically stable. Because her blood pressure was running high, received IV hydralazine in the ER. CT imaging studies are okay. Will monitor in the tele floor and gentle fluids. EEG for tomorrow and neuro consult for a.m. Will be placed on clear liquid diet if able to eat. 2. Palpitation:hx of a fib The patient was in the ER yesterday with complaint of palpitation. ER physician talked to cardiology and metoprolol dose was increased to 50 b.i.d. and supposed to follow up with cardiology. Will consult cardiology while the patient is in the hospital. Currently, placed on IV Lopressor 2.5 q. 6 hours. Anticoagulation as per cardiology. Currently on aspirin and plavix.Await cardiology input. 3. End-stage renal disease, on hemodialysis: Nephrology consult. 4. Hypertensive urgency: Placed on IV Lopressor 2.5 q. 6 hours. IV hydralazine p.r.n. Will monitor the blood pressure. Give oral hydralazine when the patient is able to take. 5. Diabetes: Placed on insulin sliding scale. 6. Hypothyroidism: On p.o. Synthroid whenever the patient is able to take. 7. History of myocardial infarction: On Plavix, statin, and beta arturo whenever the patient is able to take. Placed on IV Lopressor for now. 8. Restless legs syndrome: On ropinirole whenever she is able to take. 9. Anemia of chronic kidney disease: Iron deficiency anemia. Will follow the labs. 10. Deep venous thrombosis: Heparin subQ for now. DISPOSITION: Closely monitor in the tele floor. Level 1 full code as per my discussion with the son. PT/OT prior to discharge. Social service to help with discharge planning. Job ID: [id number]
[2021-04-29] MEDS ORDERED: EPINEPHrine INJ 1 MG/ML AMP IM PRN (00:54)
[2021-04-29] MEDS ORDERED: SODIUM CHLORIDE 0.9% 1000ML 1,000 ML IV SCH (01:00)
[2021-04-29] MEDS: METOPROLOL TARTRATE 1 MG/ML VIAL IV SCH ×4 (03:11→19:31)
[2021-04-29] MEDS: HEPARIN SOD 5,000 UNIT/0.5 ML VIAL SQ SCH ×3 (06:30→20:56)
[2021-04-29] MEDS: LEVOTHYROXINE SODIUM 25 MCG TABLET PO SCH (06:30)
[2021-04-29 07:48] LABS: Basophils # (auto) 0.02 K/uL (0-0.2); Basophils % (auto) 0.3 %; Eosinophils % (auto) 1.6 %; Hematocrit (blood only) 33.8 % (37-47); Hemoglobin 10.7 g/dL (12.0-16.0); Immature Granulocytes # (auto) 0.02 K/uL (0.00-0.02); Immature Granulocytes % (auto) 0.3 %; Lymphocytes # (auto) 1.25 K/uL (1.2-3.4); Lymphocytes % (auto) 19.9 %; Mean Corpuscular Hemoglobin 30.5 pg (25-34); Mean Corpuscular Hgb Conc 31.7 g/dL (32-36); Mean Corpuscular Volume 96.3 fL (80-100); Mean Platelet Volume 10.9 fL (7.4-10.4); Monocytes # (auto) 0.38 K/uL (0.11-0.59); Neutrophils # (auto) 4.52 K/uL (1.4-6.5); Neutrophils % (auto) 71.9 %; Platelet Count 205 K/uL (130-400); RDW Coefficient of Variation 15.2 % (11.5-14.5); RDW Standard Deviation 52.9 fL (36.4-46.3); Red Blood Count 3.51 M/uL (4.2-5.4); White Blood Count 6.29 K/uL (4.8-10.8)
[2021-04-29] MEDS: SERTRALINE HCL 50 MG TABLET PO SCH (07:56)
[2021-04-29] MEDS: AZELASTINE HCL 0.1% NASAL 200 SPRAYS/27,400 MCG BTL SCH ×2 (07:56→20:38)
[2021-04-29] MEDS: hydrALAZINE TAB 50 MG TAB PO SCH ×2 (07:57→20:37)
[2021-04-29] MEDS: CHOLECALCIFEROL 1,000 UNITS 25 MCG TAB PO SCH (07:57)
[2021-04-29] MEDS: ASPIRIN 81 MG ECTAB PO SCH (07:57)
[2021-04-29] MEDS: CLOPIDOGREL BISULFATE 75 MG TAB PO SCH (07:57)
[2021-04-29] MEDS: FUROSEMIDE 40 MG TAB PO SCH (07:57)
[2021-04-29] MEDS: amLODIPine BESYLATE 5 MG TAB PO SCH (07:58)
[2021-04-29] MEDS: SEVELAMER HCL 800 MG TABLET PO SCH ×3 (07:58→18:35)
[2021-04-29] MEDS: FLUTICASONE/VILANTEROL 100/25MCG 14 PUFFS/INHALER INH SCH (07:59)
[2021-04-29 08:02] LABS: Troponin I < 0.03 ng/ml (0-0.04)
[2021-04-29] MEDS: INSULIN ASPART PER UNIT SC SCH ×4 (08:15→20:39)
[2021-04-29 08:29] LABS: Anion Gap 9 (3-11); BUN Creatinine Ratio 13.6 (10-20); Blood Urea Nitrogen 67 mg/dl (6-23); Calcium 8.4 mg/dl (8.5-10.1); Carbon Dioxide 24 mmol/L (21-32); Chloride 108 mmol/L (98-107); Creatinine Clr Calc Pharmacy 9.6 ml/min; Est GFR (African American) 9.5 ml/min; Est GFR (Non-African American) 8.2 ml/min; Glucose 132 mg/dl (70-99(Fasting)); Magnesium 2.4 mg/dl (1.7-2.4); Potassium 4.8 mmol/L (3.5-5.1); Sodium 141 mmol/L (136-145)
--- NOTE | 2021-04-29 08:58 | Nephrology Consultation ---
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 will plan tentatively for her to have tx on 05/01 -when taking more regular diet will need dialysis diet and FR (2) Hypertensive urgency: goal sbp is 140-150s at least through weekend wrote for enaliprilat and hydralazine prn as she wsa 170-190s this am; currently in 110-140s on HD; stopped NS this am d/t HTN >may need hold parameters on bp meds History of Present Illness Reason for Consultation: ESRD on HD Requesting Physician: Dr Tristan Attending Physician: Nolvia Salter MD History of Present Illness 71 y/o F whom I'm asked to evaluate for dialysis needs was admitted yesterday after presenting with unresponsive episode at home. Her son whom she lives with found in her in bathroom w/ some shaking and tremors in faeces; no response to narcan given by EMS; concern for VFib in the field but this was deemed artifact in ER. Has had polypharmacy and narcotic use in past. admitted here in January w/ encephalopathy attributed to substance use/meds and again late march w/ confusion also presented being found on the floor and att ributed to hypertensive encephalopathy. PMH includes TRSat HD at [facility] via AVF, CABG/CAD, pAF not on AC, COPD, DM w/ retinopathy, hypothyroid, GERD, RLS, anxiety/depression. She missed HD on d/t feeling poorly. Also seen in ER here on 04/27 d/t CP, and 5 days of dyspnea. ECG, TSH, troponin x 1 were wnl. After d/w cardiology she was d/c home w/ increase o fbetablocker. Currently she is agitated and crying for help; worried about severe frontal headache. Allergies Allergy/AdvReac Type Severity Reaction Status Date / Time bee venom protein (honey bee) Allergy Intermediate MOUTH Verified 04/28/21 19:03 SWELLING prednisone Allergy Intermediate SWELLING Verified 04/28/21 19:03 OG HANDS, ITCHING, RASH tomato Allergy Intermediate Hives Verified 04/28/21 19:03 Penicillins Allergy Mild RASH Verified 04/28/21 19:03 rosuvastatin Allergy Mild SEVERE H/A Verified 04/28/21 19:03 trazodone AdvReac Severe Confusion Verified 04/28/21 19:03 [id number] Reductase AdvReac Mild EFFECTED Verified 04/28/21 19:03 Inhibitor LIVER [Gykuptn-Czq-Xht Reductase STUDIES Inhibitor] Home Medications Medication Instructions Recorded Confirmed Type aspirin 81 mg tablet,delayed 81 mg PO QAM 02/18/18 04/28/21 History release (Aspirin Low Dose) fluticasone propionate 50 1 spray INTRANASAL DAILY PRN 02/18/18 04/28/21 History mcg/actuation nasal spray,suspension (Flonase Allergy Relief) levothyroxine 25 mcg tablet 25 mcg PO QAM 02/18/18 04/28/21 History montelukast 10 mg tablet 10 mg PO HS 02/18/18 04/28/21 History (Singulair) sertraline 100 mg tablet (Zoloft) 150 mg PO QAM 02/18/18 04/28/21 History sevelamer carbonate 800 mg tablet 800 mg PO TIDM 03/26/19 04/28/21 History (Renvela) amlodipine 10 mg tablet (Norvasc) 10 mg PO QAM 03/23/20 04/28/21 History linagliptin 5 mg tablet (Tradjenta) 5 mg PO QAM 03/23/20 04/28/21 History nitroglycerin 0.4 mg sublingual 0.4 mg SUBLINGUAL UD PRN 03/23/20 04/28/21 History tablet (Nitrostat) furosemide 40 mg tablet 40 mg PO QAM 01/07/21 04/28/21 History ammonium lactate 12 % topical cream 1 applic TOPICAL DAILY PRN 01/25/21 04/28/21 History buspirone 5 mg tablet 5 mg PO BID 01/25/21 04/28/21 History cholecalciferol (vitamin D3) 25 25 mcg PO DAILY 01/25/21 04/28/21 History mcg (1,000 unit) capsule (Vitamin D3) epinephrine 0.3 mg/0.3 mL 0.3 mg IM Q4H PRN 01/25/21 04/28/21 History injection, auto-injector ipratropium 0.5 mg-albuterol 3 mg 3 ml INHALATION Q4H PRN 01/25/21 04/28/21 History (2.5 mg base)/3 mL nebulization soln ondansetron HCl 8 mg tablet 8 mg PO TID PRN 01/25/21 04/28/21 History metoprolol tartrate 25 mg tablet 25 mg PO BID #60 tab 02/01/21 04/28/21 Rx albuterol sulfate 90 mcg/actuation 2 inh INHALATION Q4H PRN 04/08/21 04/28/21 History aerosol inhaler azelastine 137 mcg (0.1 %) nasal 2 spray INTRANASAL BID 04/08/21 04/28/21 Hist ory spray aerosol clopidogrel 75 mg tablet 75 mg PO DAILY 04/08/21 04/28/21 History fluticasone furoate 100 1 inh INHALATION DAILY 04/08/21 04/28/21 History mcg-vilanterol 25 mcg/dose inhalation powder (Breo Ellipta) loperamide 2 mg capsule 2 mg PO DAILY 04/08/21 04/28/21 History melatonin 3 mg tablet 3 mg PO HS #0 04/08/21 04/28/21 History ropinirole 0.25 mg tablet 0.5 mg PO HS 04/08/21 04/28/21 History hydralazine 25 mg tablet 50 mg PO BID #0 tab 04/09/21 04/28/21 Rx diphenoxylate-atropine 2.5 1 tab PO DAILY PRN 04/24/21 04/28/21 History mg-0.025 mg tablet (Lomotil) loratadine 10 mg tablet 5 mg PO DAILY 04/24/21 04/28/21 History azithromycin 250 mg tablet 250 mg PO UD 04/28/21 04/28/21 History Patient History Medical History (Updated 04/29/21 @ 17:32 by Tory Evans MD, PhD) Anemia Anxiety Asthma Uses albuterol daily. Atrial fibrillation FOLLOWED BY DR. GLEN Estrada Depression Diabetes mellitus, type 2 oral med End stage renal disease receiving hemodiaylsis Sunday//Saturdays in [place]. Follows Dr. Gonzales ([place], [place]). Endometriosis stage 4 GERD (gastroesophageal reflux disease) Hyperlipidemia Hypertension no medications currently - experiencing hypotension Hypothyroidism Kidney failure STAGE 4 NO DIALYSIS Migraine Myocardial Infarction 2007 Osteoarthritis Stroke X 2 2014 Surgical History History of abdominal surgery UMBILICAL MESH REMOVED (NECROTIC) History of adenoidectomy History of appendectomy History of martha hole surgery 2014 AFTER CVA TO "REMOVED FLUID" History of cardiac cath 2008 AT [facility] History of cataract surgery RT/LEFT History of section X 3 History of cholecystectomy History of colonoscopy History of coronary artery bypass graft 2007 3 [facility] [place] History of esophagogastroduodenoscopy (EGD) History of herniorrhaphy X 3 REPAIRS History of surgery LEFT FOOT/ANKLE FX REPAIR S/P FALL (HARDWARE) History of tonsillectomy History of tooth extraction History of total abdominal hysterectomy and bilateral salpingo-oophorectomy History of total knee replacement LEFT Hx of hand surgery LEFT HAND SURGERY "TOOK BONES OUT" S/P arteriovenous (AV) fistula creation Left arm S/P panniculectomy Family History Brother Family history of diabetes mellitus Coronary heart disease Mother Family history of diabetes mellitus Other No family history of adverse response to anesthesia Social History Smoking Status: Unknown if ever smoked Tobacco Type: Cigarettes Cigarettes Per Day: 1; Second Hand Exposure: Yes; Hx Substance Use: Yes (PER H&P) Substance Use Type Other:: unable to respond Preferred Language: Haitian Communication Ability: Unable Visual Impairment: No Limitations Icu Staff Nurse Required: No Beliefs That Will Affect Care: None marital status: Single Current Living Situation: Alone How many Children do You have: 3 Assistive Devices: Cane and Walker Review of Systems Review of Systems: All systems reviewed & are unremarkable except as noted in HPI & below Physical Exam Constitutional: well developed, well nourished and + acute distress (c/o of CARL) Eyes: EOM intact bilaterally ENMT: Ears: no external ear abnormality Nose: no external nose abnormality Mouth: + dry oral mucous membranes Neck: no nuchal rigidity Respiratory: normal respiratory effort Auscultation: + diminished lung sounds Cardiovascular: RRR, no murmur, no edema Extremities: + AV fistula (+t/b) Gastrointestinal (Abdomen): Inspection/Auscultation: normal bowel sounds Percussion/Palpation: abdomen soft; abdomen nontender Musculoskeletal: Extremities: strength 5/5 throughout Skin: no rashes, warm and dry Neurologic: de paz, fluent speech, no tremor Psychiatric: Orientation: oriented to person and oriented to place Results & Data ([facility]) Vital Signs (Past 12 Hours) Vital Signs Temp Pulse Pulse Resp BP BP Pulse Ox 04/29/21 08:02 71 177/68 H 04/29/21 07:42 36.7 C 71 16 177/68 H 95 04/29/21 04:17 63 04/29/21 03:14 57 L 10 L 158/63 H 95 04/29/21 00:30 04/29/21 00:28 36.5 C 66 22 186/71 H 95 04/29/21 00:00 56 L 18 175/68 H 97 04/28/21 23:07 55 L 20 177/65 H 98 04/28/21 22:30 198/87 H 04/28/21 22:15 64 15 211/77 H 95 04/28/21 22:00 56 L 15 190/72 H 98 04/28/21 21:45 57 L 19 178/119 H 99 04/28/21 21:30 53 L 11 L 173/69 H 99 04/28/21 21:16 56 L 11 L 183/70 H 98 04/28/21 21:00 64 12 199/86 H 98 Pulse Ox 04/29/21 08:02 04/29/21 07:42 04/29/21 04:17 04/29/21 03:14 04/29/21 00:30 98 04/29/21 00:28 04/29/21 00:00 04/28/21 23:07 04/28/21 22:30 04/28/21 22:15 04/28/21 22:00 04/28/21 21:45 04/28/21 21:30 04/28/21 21:16 04/28/21 21:00 Laboratory Results 04/29/21 06:54 04/29/21 06:54 Urine tox screen negative Urinalysis: pH 8, 3+ protein, 5-10 epithelial cells, 1013 specific gravity, all other indices negative Diagnostic Findings Chest x-ray IMPRESSION: Cardiomegaly with no active disease in the chest Head CT: No hemorrhage, mass-effect, evidence of acute territorial ischemia by CT criteria C-spine CT:1. There is no evidence of fracture or subluxation involving the cervical spine. 2. Osteopenia and spondylotic change as above. ECG x2 NSR and no change from previous
[2021-04-29] MEDS ORDERED: ENALAPRILAT 0.625 MG in SYRINGE 9.5 ML IV PRN (09:45)
[2021-04-29] MEDS ORDERED: SODIUM CHLORIDE 0.9% 1000ML 1,000 ML IV PRN (09:47)
[2021-04-29] MEDS ORDERED: HEPARIN SOD (PORCINE) 1000 UNIT/ML IV SCH (10:00)
[2021-04-29] MEDS ORDERED: levETIRAcetam 500 MG in 0.9 % SODIUM CHLORIDE 100 ML IV STA (10:25)
--- NOTE | 2021-04-29 10:37 | Cardiology Consultation ---
Date of Consultation April 29, 2021 Assessment & Plan (1) Hypertensive urgency: (2) Acute headache: (3) Atrial fibrillation: (4) Altered mental status: Patient admitted for recurrent unresponsive episode. This is 2nd or 3rd episode in a few months, with significant altered mental status. Tox screen pending. Previously thought to be polypharmacy/OD. She is significantly hypertensive since arrival. Complaining of headache. Med compliance as outpatient is questionable. Initial head CT is unremarkable. Neuro consult has been placed. Given history of PAF, altered mental status, tremors vs seizure like activity reported, would benefit from Brain MRI as well. Currently in NSR. Telemetry has been unrevealing. Continue Metoprolol, currently receiving IV q6 hours. If she is able to take PO meds, resume metoprolol tartrate 50 mg BID. For Hypertension, continue IV hydralazine, IV enalapril and IV metoprolol. Hopefully she can resume PO meds this morning and can resume oral home meds and titrate doses as needed. She previously reported significant abdominal pain/nausea with Coumadin. Given ESRD on dialysis, not a DOAC candidate. Low threshold to resume anticoagulation given history of CVA and PAF, however given severe headache would possibly await brain MRI results and r/o hemorrhagic event. Case discussed with Dr. Acevedo. Supervising Physician Co-Signing Physician Notes Patient seen and examined at the bedside. Awake however oriented to person only. Complains of "pain all over". Repeatedly asking for help. Moves all extremities. There is an abrasion of her right knee. No obvious head trauma. ECG demonstrates sinus rhythm. Cardiac enzymes are undetectable. Telemetry without dysrhythmia. PE: VSS. General: Chronically ill, confused. Heart: Regular, normal S1-S2. No murmur appreciated. Lungs: No rales, rhonchi, wheeze as auscultated anteriorly. Poor cooperation. Extremities: Right anterior knee abrasion. No clubbing, cyanosis, or edema. A/P: Agree with above history, physical exam, assessment and plan as per PA-C. Patient recently evaluated in the ER due to recurrent paroxysmal atrial flutter. Titration of metoprolol and resumption of Coumadin recommended, however, it is unclear whether these recommendations were carried through. Rhythm is stable since admission. Continue intravenous metoprolol while NPO. Transition back to oral metoprolol when able. Hold anticoagulation currently given current mental state. Patient discontinued anticoagulation in the past due to possible GI side effect. Will discuss further with patient when mental status improves. Monitor telemetry during hospitalization. History of Present Illness Reason for Consultation: Unresponsiveness Requesting Physician: Dr. Tristan Attending Physician: Dr. Acevedo History of Present Illness Patient is a 71 year old female who follows with [facility] cardiology, Dr. Hernandez, for history of CAD, remote CABG in 2007, history of post op afib at that time, Cerebral vascular disease with prior CVA per chart records in 2014, moderate right sided carotid stenosis followed by vascular surgery, ESRD on dialysis, labile hypertension, and chronic tobacco abuse. Several months ago patient was admitted for polypharmacy, possible overdose, encephalopathy. Found to have atrial fibrillation with RVR. She was started on metoprolol 25 mg BID and coumadin. She then developed nausea as outpatient and stopped Coumadin. At [facility] f/u she was in NSR on EKG and metoprolol was continued. On 04/27, she was evaluated by PCP for palpitations and found to have recurrent atrial flutter with RVR. She was sent to ER and by the time she arrived she was back in NSR. Metoprolol was increased to 50 mg BID. She was told to stop plavix and resume coumadin, but apparently she declined. Unsure if metoprolol dose was increased. Yesterday she was found unresponsive in her bathroom by her son. EMS was summoned and brought to ER. There was mention of possible v.fib on telemetry in ambulance, but then this was deemed artifact. she was confused on arrival. Head CT was unremarkable. EKG without acute changes, demonstrating NSR. Telemetry without recurrent afib or bradyarrhythmias. Troponin negative. BP has been hypertensive since admission. At time of consult, patient is awake, but oriented to person, place or time. She reports "having pain all over" and a "terrible headache". REview of systems unreliable. Tremors/shaking noted in upper extremities. Allergies Allergy/AdvReac Type Severity Reaction Status Date / Time bee venom protein (honey bee) Allergy Intermediate MOUTH Verified 04/28/21 19:03 SWELLING prednisone Allergy Intermediate SWELLING Verified 04/28/21 19:03 OG HANDS, ITCHING, RASH tomato Allergy Intermediate Hives Verified 04/28/21 19:03 Penicillins Allergy Mild RASH Verified 04/28/21 19:03 rosuvastatin Allergy Mild SEVERE H/A Verified 04/28/21 19:03 trazodone AdvReac Severe Confusion Verified 04/28/21 19:03 [id number] Reductase AdvReac Mild EFFECTED Verified 04/28/21 19:03 Inhibitor LIVER [[id number] Reductase STUDIES Inhibitor] Home Medications Medication Instructions Recorded Confirmed Type aspirin 81 mg tablet,delayed 81 mg PO QAM 02/18/18 04/28/21 History release (Aspirin Low Dose) fluticasone propionate 50 1 spray INTRANASAL DAILY PRN 02/18/18 04/28/21 History mcg/actuation nasal spray,suspension (Flonase Allergy Relief) levothyroxine 25 mcg tablet 25 mcg PO QAM 02/18/18 04/28/21 History montelukast 10 mg tablet 10 mg PO HS 02/18/18 04/28/21 History (Singulair) sertraline 100 mg tablet (Zoloft) 150 mg PO QAM 02/18/18 04/28/21 History sevelamer carbonate 800 mg tablet 800 mg PO TIDM 03/26/19 04/28/21 History (Renvela) amlodipine 10 mg tablet (Norvasc) 10 mg PO QAM 03/23/20 04/28/21 History linagliptin 5 mg tablet (Tradjenta) 5 mg PO QAM 03/23/20 04/28/21 History nitroglycerin 0.4 mg sublingual 0.4 mg SUBLINGUAL UD PRN 03/23/20 04/28/21 History tablet (Nitrostat) furosemide 40 mg tablet 40 mg PO QAM 01/07/21 04/28/21 History ammonium lactate 12 % topical cream 1 applic TOPICAL DAILY PRN 01/25/21 04/28/21 History buspirone 5 mg tablet 5 mg PO BID 01/25/21 04/28/21 History cholecalciferol (vitamin D3) 25 25 mcg PO DAILY 01/25/21 04/28/21 History mcg (1,000 unit) capsule (Vitamin D3) epinephrine 0.3 mg/0.3 mL 0.3 mg IM Q4H PRN 01/25/21 04/28/21 History injection, auto-injector ipratropium 0.5 mg-albuterol 3 mg 3 ml INHALATION Q4H PRN 01/25/21 04/28/21 History (2.5 mg base)/3 mL nebulization soln ondansetron HCl 8 mg tablet 8 mg PO TID PRN 01/25/21 04/28/21 History metoprolol tartrate 25 mg tablet 25 mg PO BID #60 tab 02/01/21 04/28/21 Rx albuterol sulfate 90 mcg/actuation 2 inh INHALATION Q4H PRN 04/08/21 04/28/21 History aerosol inhaler azelastine 137 mcg (0.1 %) nasal 2 spray INTRANASAL BID 04/08/21 04/28/21 History spray aerosol clopidogrel 75 mg tablet 75 mg PO DAILY 04/08/21 04/28/21 History fluticasone furoate 100 1 inh INHALATION DAILY 04/08/21 04/28/21 History mcg-vilanterol 25 mcg/dose inhalation powder (Breo Ellipta) loperamide 2 mg capsule 2 mg PO DAILY 04/08/21 04/28/21 History melatonin 3 mg tablet 3 mg PO HS #0 04/08/21 04/28/21 History ropinirole 0.25 mg tablet 0.5 mg PO HS 04/08/21 04/28/21 History hydralazine 25 mg tablet 50 mg PO BID #0 tab 04/09/21 04/28/21 Rx diphenoxylate-atropine 2.5 1 tab PO DAILY PRN 04/24/21 04/28/21 History mg-0.025 mg tablet (Lomotil) loratadine 10 mg tablet 5 mg PO DAILY 04/24/21 04/28/21 History azithromycin 250 mg tablet 250 mg PO UD 04/28/21 04/28/21 History Patient History Medical History Anemia Anxiety Asthma Uses albuterol daily. Atrial fibrillation FOLLOWED BY DR. GLEN RIVAS fistula Depression Diabetes mellitus, type 2 oral med End stage renal disease receiving hemodiaylsis Sunday//Saturdays in [place]. Follows Dr. Ramirez ([place], [place]). Endometriosis stage 4 GERD (gastroesophageal reflux disease) Hyperlipidemia Hypertension no medications currently - experiencing hypotension Hypothyroidism Kidney failure STAGE 4 NO DIALYSIS Migraine Myocardial Infarction 2007 Osteoarthritis Stroke X 2 2014 Surgical History History of abdominal surgery UMBILICAL MESH REMOVED (NECROTIC) History of adenoidectomy History of appendectomy History of martha hole surgery 2014 AFTER CVA TO "REMOVED FLUID" History of cardiac cath 2007 AT [facility] History of cataract surgery RT/LEFT History of section X 3 History of cholecystectomy History of colonoscopy History of coronary artery bypass graft 2007 3 [facility] [place] History of esophagogastroduodenoscopy (EGD) History of herniorrhaphy X 3 REPAIRS History of surgery LEFT FOOT/ANKLE FX REPAIR S/P FALL (HARDWARE) History of tonsillectomy History of tooth extraction History of total abdominal hysterectomy and bilateral salpingo-oophorectomy History of total knee replacement LEFT Hx of hand surgery LEFT HAND SURGERY "TOOK BONES OUT" S/P arteriovenous (AV) fistula creation Left arm S/P panniculectomy Family History Brother Family history of diabetes mellitus Coronary heart disease Mother Family history of diabetes mellitus Other No family history of adverse response to anesthesia Social History Smoking Status: Unknown if ever smoked Tobacco Type: Cigarettes Cigarettes Per Day: 1; Second Hand Exposure: Yes; Hx Substance Use: Yes (PER H&P) Substance Use Type Other:: unable to respond Preferred Language: Armenian Visual Impairment: No Limitations Back Padder Required: No Beliefs That Will Affect Care: None marital status: Single Current Living Situation: Alone How many Children do You have: 1 Review of Systems Review of Systems: Unobtainable due to cognitive status Physical Exam Constitutional: + thin, + altered mental status and + disheveled Respiratory: normal respiratory effort, lungs clear to auscultation Cardiovascular: Rate/Rhythm: regular rate and regular rhythm Heart Sounds: normal S1, normal S2 and + murmur (II/ systolic murmur LSB) Gastrointestinal (Abdomen): normal bowel sounds, soft, nontender, no hepatosplenomegaly Skin: no rashes, warm and dry Neurologic: + confused Psychiatric: Apperance: + disheveled Results & Data ([facility]) Vital Signs (Past 12 Hours) Vital Signs Temp Pulse Pulse Resp BP BP Pulse Ox 04/29/21 10:30 63 04/29/21 09:46 37.2 C 63 186/64 H 93 04/29/21 08:02 71 177/68 H 04/29/21 07:42 36.7 C 71 16 177/68 H 95 04/29/21 04:17 63 04/29/21 03:14 57 L 10 L 158/63 H 95 04/29/21 00:30 04/29/21 00:28 36.5 C 66 22 186/71 H 95 04/29/21 00:00 56 L 18 175/68 H 97 04/28/21 23:07 55 L 20 177/65 H 98 Pulse Ox 04/29/21 10:30 04/29/21 09:46 04/29/21 08:02 04/29/21 07:42 04/29/21 04:17 04/29/21 03:14 04/29/21 00:30 98 04/29/21 00:28 04/29/21 00:00 04/28/21 23:07 Laboratory Results 04/29/21 04/29/21 04/29/21 Range/Units 07:30 06:54 06:54 WBC 6.29 (4.8-10.8) K/uL RBC 3.51 L (4.2-5.4) M/uL Hgb 10.7 L (12.0-16.0) g/dL Hct 33.8 L (37-47) % MCV 96.3 (80-100) fL MCH 30.5 (25-34) pg MCHC 31.7 L (32-36) g/dL RDW Std Deviation 52.9 H (36.4-46.3) fL RDW Coeff of Odilon 15.2 H (11.5-14.5) % Plt Count 205 (130-400) K/uL MPV 10.9 H (7.4-10.4) fL Immature Gran % (Auto) 0.3 % Neut % (Auto) 71.9 % Lymph % (Auto) 19.9 % [place] % (Auto) 6.0 % Eos % (Auto) 1.6 % Baso % (Auto) 0.3 % Neut # (Auto) 4.52 (1.4-6.5) K/uL Lymph # (Auto) 1.25 (1.2-3.4) K/uL [place] # (Auto) 0.38 (0.11-0.59) K/uL Eos # (Auto) 0.10 (0-0.5) K/uL Baso # (Auto) 0.02 (0-0.2) K/uL Immature Gran # (Auto) 0.02 (0.00-0.02) K/uL Sodium 141 (136-145) mmol/L Potassium 4.8 (3.5-5.1) mmol/L Chloride 108 H (98-107) mmol/L Carbon Dioxide 24 (21-32) mmol/L Anion Gap 9 (3-11) BUN 67 H (6-23) mg/dl Creatinine 4.91 H* (0.6-1.2) mg/dl Est Cr Clr Drug Dosing 9.6 ml/min Est GFR ( Amer) 9.5 ml/min Est GFR (Non-Af Amer) 8.2 ml/min BUN/Creatinine Ratio 13.6 (10-20) Glucose 132 H (70-99(Fasting)) mg/dl POC Glucose 138 H (70-99) mg/dl Calcium 8.4 L (8.5-10.1) mg/dl Magnesium 2.4 (1.7-2.4) mg/dl Total Bilirubin (0.2-1.0) mg/dl AST (13-39) U/L ALT (7-52) U/L Alkaline Phosphatase (34-104) U/L Troponin I < 0.03 (0-0.04) ng/ml Total Protein (6.0-8.3) gm/dl Albumin (3.4-5.0) gm/dl Globulin (2.5-4.0) gm/dl Albumin/Globulin Ratio (0.9-2) Lipase (11-82) U/L Urine Color Urine Appearance (Clear) Urine pH (4.5-7.5) Ur Specific [place] (1.000-1.030) Urine Protein (Negative) Urine Glucose (UA) (Negative) Urine Ketones (Negative) Urine Blood (Negative) Urine Nitrite (Negative) Urine Bilirubin (Negative) Urine Urobilinogen (Negative) Ur Leukocyte Esterase (Negative) Urine WBC (Auto) (0-5) /hpf Urine RBC (Auto) (0-4) /hpf U Hyaline Cast (Auto) (0-5) /lpf U Epithel Cells (Auto) (0-5) /lpf Urine Bacteria (Auto) (Negative) Salicylates (3.0-30) mg/dl Urine Opiates Screen (Neg) Ur Buprenorphine U Buprenorphine Quant Ur Norbuprenorphine Ur Oxycodone Screen U Noroxycodone Confirm Ur Oxycodone GC/MS U Oxymorphone GC/MS Ur Methadone, Qual (Neg) Acetaminophen (10-30) ug/ml Urine Barbiturates (Neg) Ur Phencyclidine (PCP) (Neg) U Amphetamin/Meth Scrn (Neg) MDMA (Ecstasy) Screen (Neg) U Benzodiazepines Scrn (Neg) Ur Cocaine Metabolite (Neg) U Marijuana (THC) Screen (Neg) Drug Screen Comment Ethyl Alcohol mg/dL (<10.0) mg/dl Reference Lab 04/28/21 04/28/21 04/28/21 Range/Units 19:16 19:16 19:16 WBC (4.8-10.8) K/uL RBC (4.2-5.4) M/uL Hgb (12.0-16.0) g/dL Hct (37-47) % MCV (80-100) fL MCH (25-34) pg MCHC (32-36) g/dL RDW Std Deviation (36.4-46.3) fL RDW Coeff of Odilon (11.5-14.5) % Plt Count (130-400) K/uL MPV (7.4-10.4) fL Immature Gran % (Auto) % Neut % (Auto) % Lymph % (Auto) % [place] % (Auto) % Eos % (Auto) % Baso % (Auto) % Neut # (Auto) (1.4-6.5) K/uL Lymph # (Auto) (1.2-3.4) K/uL [place] # (Auto) (0.11-0.59) K/uL Eos # (Auto) (0-0.5) K/uL Baso # (Auto) (0-0.2) K/uL Immature Gran # (Auto) (0.00-0.02) K/uL Sodium (136-145) mmol/L Potassium (3.5-5.1) mmol/L Chloride (98-107) mmol/L Carbon Dioxide (21-32) mmol/L Anion Gap (3-11) BUN (6-23) mg/dl Creatinine (0.6-1.2) mg/dl Est Cr Clr Drug Dosing ml/min Est GFR ( Amer) ml/min Est GFR (Non-Af Amer) ml/min BUN/Creatinine Ratio (10-20) Glucose (70-99(Fasting)) mg/dl POC Glucose (70-99) mg/dl Calcium (8.5-10.1) mg/dl Magnesium (1.7-2.4) mg/dl Total Bilirubin (0.2-1.0) mg/dl AST (13-39) U/L ALT (7-52) U/L Alkaline Phosphatase (34-104) U/L Troponin I (0-0.04) ng/ml Total Protein (6.0-8.3) gm/dl Albumin (3.4-5.0) gm/dl Globulin (2.5-4.0) gm/dl Albumin/Globulin Ratio (0.9-2) Lipase (11-82) U/L Urine Color Yellow Urine Appearance Clear (Clear) Urine pH 8.0 H (4.5-7.5) Ur Specific [place] 1.013 (1.000-1.030) Urine Protein 3+ H (Negative) Urine Glucose (UA) Negative (Negative) Urine Ketones Negative (Negative) Urine Blood Negative (Negative) Urine Nitrite Negative (Negative) Urine Bilirubin Negative (Negative) Urine Urobilinogen Negative (Negative) Ur Leukocyte Esterase Negative (Negative) Urine WBC (Auto) 1-5 (0-5) /hpf Urine RBC (Auto) 0-4 (0-4) /hpf U Hyaline Cast (Auto) 0 (0-5) /lpf U Epithel Cells (Auto) 5-10 H (0-5) /lpf Urine Bacteria (Auto) Negative (Negative) Salicylates (3.0-30) mg/dl Urine Opiates Screen Neg (Neg) Ur Buprenorphine Pending U Buprenorphine Quant Pending Ur Norbuprenorphine Pending Ur Oxycodone Screen Pending U Noroxycodone Confirm Pending Ur Oxycodone GC/MS Pending U Oxymorphone GC/MS Pending Ur Methadone, Qual Neg (Neg) Acetaminophen (10-30) ug/ml Urine Barbiturates Neg (Neg) Ur Phencyclidine (PCP) Neg (Neg) U Amphetamin/Meth Scrn Neg (Neg) MDMA (Ecstasy) Screen Neg (Neg) U Benzodiazepines Scrn Neg (Neg) Ur Cocaine Metabolite Neg (Neg) U Marijuana (THC) Screen Neg (Neg) Drug Screen Comment Pending Ethyl Alcohol mg/dL (<10.0) mg/dl Reference Lab Pending 04/28/21 04/28/21 04/28/21 Range/Units 18:54 18:54 18:54 WBC (4.8-10.8) K/uL RBC (4.2-5.4) M/uL Hgb (12.0-16.0) g/dL Hct (37-47) % MCV (80-100) fL MCH (25-34) pg MCHC (32-36) g/dL RDW Std Deviation (36.4-46.3) fL RDW Coeff of Odilon (11.5-14.5) % Plt Count (130-400) K/uL MPV (7.4-10.4) fL Immature Gran % (Auto) % Neut % (Auto) % Lymph % (Auto) % [place] % (Auto) % Eos % (Auto) % Baso % (Auto) % Neut # (Auto) (1.4-6.5) K/uL Lymph # (Auto) (1.2-3.4) K/uL [place] # (Auto) (0.11-0.59) K/uL Eos # (Auto) (0-0.5) K/uL Baso # (Auto) (0-0.2) K/uL Immature Gran # (Auto) (0.00-0.02) K/uL Sodium (136-145) mmol/L Potassium (3.5-5.1) mmol/L Chloride (98-107) mmol/L Carbon Dioxide (21-32) mmol/L Anion Gap (3-11) BUN (6-23) mg/dl Creatinine (0.6-1.2) mg/dl Est Cr Clr Drug Dosing ml/min Est GFR ( Amer) ml/min Est GFR (Non-Af Amer) ml/min BUN/Creatinine Ratio (10-20) Glucose (70-99(Fasting)) mg/dl POC Glucose (70-99) mg/dl Calcium (8.5-10.1) mg/dl Magnesium 2.6 H (1.7-2.4) mg/dl Total Bilirubin (0.2-1.0) mg/dl AST (13-39) U/L ALT (7-52) U/L Alkaline Phosphatase (34-104) U/L Troponin I < 0.03 (0-0.04) ng/ml Total Protein (6.0-8.3) gm/dl Albumin (3.4-5.0) gm/dl Globulin (2.5-4.0) gm/dl Albumin/Globulin Ratio (0.9-2) Lipase 59 (11-82) U/L Urine Color Urine Appearance (Clear) Urine pH (4.5-7.5) Ur Specific [place] (1.000-1.030) Urine Protein (Negative) Urine Glucose (UA) (Negative) Urine Ketones (Negative) Urine Blood (Negative) Urine Nitrite (Negative) Urine Bilirubin (Negative) Urine Urobilinogen (Negative) Ur Leukocyte Esterase (Negative) Urine WBC (Auto) (0-5) /hpf Urine RBC (Auto) (0-4) /hpf U Hyaline Cast (Auto) (0-5) /lpf U Epithel Cells (Auto) (0-5) /lpf Urine Bacteria (Auto) (Negative) Salicylates < 3.0 L (3.0-30) mg/dl Urine Opiates Screen (Neg) Ur Buprenorphine U Buprenorphine Quant Ur Norbuprenorphine Ur Oxycodone Screen U Noroxycodone Confirm Ur Oxycodone GC/MS U Oxymorphone GC/MS Ur Methadone, Qual (Neg) Acetaminophen 3 L (10-30) ug/ml Urine Barbiturates (Neg) Ur Phencyclidine (PCP) (Neg) U Amphetamin/Meth Scrn (Neg) MDMA (Ecstasy) Screen (Neg) U Benzodiazepines Scrn (Neg) Ur Cocaine Metabolite (Neg) U Marijuana (THC) Screen (Neg) Drug Screen Comment Ethyl Alcohol mg/dL < 10.0 (<10.0) mg/dl Reference Lab 04/28/21 04/28/21 Range/Units 18:54 18:54 WBC 7.93 (4.8-10.8) K/uL RBC 3.88 L (4.2-5.4) M/uL Hgb 11.9 L (12.0-16.0) g/dL Hct 37.3 (37-47) % MCV 96.1 (80-100) fL MCH 30.7 (25-34) pg MCHC 31.9 L (32-36) g/dL RDW Std Deviation 53.3 H (36.4-46.3) fL RDW Coeff of Odilon 15.2 H (11.5-14.5) % Plt Count 212 (130-400) K/uL MPV 10.2 (7.4-10.4) fL Immature Gran % (Auto) 0.3 % Neut % (Auto) 81.6 % Lymph % (Auto) 13.2 % [place] % (Auto) 3.5 % Eos % (Auto) 1.1 % Baso % (Auto) 0.3 % Neut # (Auto) 6.47 (1.4-6.5) K/uL Lymph # (Auto) 1.05 L (1.2-3.4) K/uL [place] # (Auto) 0.28 (0.11-0.59) K/uL Eos # (Auto) 0.09 (0-0.5) K/uL Baso # (Auto) 0.02 (0-0.2) K/uL Immature Gran # (Auto) 0.02 (0.00-0.02) K/uL Sodium 141 (136-145) mmol/L Potassium 5.0 (3.5-5.1) mmol/L Chloride 102 (98-107) mmol/L Carbon Dioxide 28 (21-32) mmol/L Anion Gap 11 (3-11) BUN 68 H (6-23) mg/dl Creatinine 5.13 H* D (0.6-1.2) mg/dl Est Cr Clr Drug Dosing 9.1 ml/min Est GFR ( Amer) 9.0 ml/min Est GFR (Non-Af Amer) 7.7 ml/min BUN/Creatinine Ratio 13.3 (10-20) Glucose 143 H (70-99(Fasting)) mg/dl POC Glucose (70-99) mg/dl Calcium 9.0 (8.5-10.1) mg/dl Magnesium (1.7-2.4) mg/dl Total Bilirubin 0.5 (0.2-1.0) mg/dl AST 16 (13-39) U/L ALT 15 (7-52) U/L Alkaline Phosphatase 103 (34-104) U/L Troponin I (0-0.04) ng/ml Total Protein 6.9 (6.0-8.3) gm/dl Albumin 3.9 (3.4-5.0) gm/dl Globulin 3.0 (2.5-4.0) gm/dl Albumin/Globulin Ratio 1.3 (0.9-2) Lipase (11-82) U/L Urine Color Urine Appearance (Clear) Urine pH (4.5-7.5) Ur Specific [place] (1.000-1.030) Urine Protein (Negative) Urine Glucose (UA) (Negative) Urine Ketones (Negative) Urine Blood (Negative) Urine Nitrite (Negative) Urine Bilirubin (Negative) Urine Urobilinogen (Negative) Ur Leukocyte Esterase (Negative) Urine WBC (Auto) (0-5) /hpf Urine RBC (Auto) (0-4) /hpf U Hyaline Cast (Auto) (0-5) /lpf U Epithel Cells (Auto) (0-5) /lpf Urine Bacteria (Auto) (Negative) Salicylates (3.0-30) mg/dl Urine Opiates Screen (Neg) Ur Buprenorphine U Buprenorphine Quant Ur Norbuprenorphine Ur Oxycodone Screen U Noroxycodone Confirm Ur Oxycodone GC/MS U Oxymorphone GC/MS Ur Methadone, Qual (Neg) Acetaminophen (10-30) ug/ml Urine Barbiturates (Neg) Ur Phencyclidine (PCP) (Neg) U Amphetamin/Meth Scrn (Neg) MDMA (Ecstasy) Screen (Neg) U Benzodiazepines Scrn (Neg) Ur Cocaine Metabolite (Neg) U Marijuana (THC) Screen (Neg) Drug Screen Comment Ethyl Alcohol mg/dL (<10.0) mg/dl Reference Lab Diagnostic Findings Telemetry reviewed - NSR, occ PVC's. No arrhythmias. No atrial fib/flutter. EKG Normal sinus rhythm Septal infarct , age undetermined Abnormal ECG When compared with ECG of 27-APR-2021 13:22, No significant change was found Chest xray report reviewed - IMPRESSION: Cardiomegaly with no active disease in the chest. Head CT report reviewed: IMPRESSION: There is no hemorrhage, mass effect, or evidence of acute territorial ischemia by CT criteria. Medications Administered Current Inpatient Medications Acetaminophen (Acetaminophen 500 Mg Tab) 1,000 mg PO Q6H PRN PRN Reason: Headache Stop: 05/29/21 09:45 Albuterol (Albuterol Hfa 8 Gm Inhaler) 2 puffs INH Q4R PRN PRN Reason: Shortness Of Breath Stop: 05/29/21 00:27 Albuterol (Albut/Ipratrop 3mg/0.5mg Neb 3 Ml Vial) 3 ml INH Q4R PRN; Protocol PRN Reason: Shortness Of Breath Stop: 05/29/21 00:27 Amlodipine Besylate (Amlodipine Besylate 5 Mg Tab) 10 mg PO QAM SILVIA Stop: 05/29/21 08:59 Last Admin: 04/29/21 07:58 Dose: 10 mg Documented by: Aspirin (Aspirin 81 Mg Ectab) 81 mg PO QAM SILVIA Stop: 05/29/21 08:59 Last Admin: 04/29/21 07:57 Dose: 81 mg Documented by: Azelastine HCl (Azelastine Hcl 0.1% Nasal 200 Sprays/27,400 Mcg Btl) 2 sprays NA BID SILVIA Stop: 05/29/21 08:59 Last Admin: 04/29/21 07:56 Dose: 2 sprays Documented by: Clopidogrel Bisulfate (Clopidogrel Bisulfate 75 Mg Tab) 75 mg PO DAILY SILVIA Stop: 05/29/21 08:59 Last Admin: 04/29/21 07:57 Dose: 75 mg Documented by: Epinephrine HCl (Epinephrine Inj 1 Mg/Ml Amp) 0.3 mg IM Q4H PRN PRN Reason: Anaphylaxis Stop: 05/29/21 00:53 Fluticasone Propionate (Fluticasone Propionate Na Spr 16 Gm Btl) 1 sprays NA DAILY PRN PRN Reason: Nasal Congestion Stop: 05/29/21 00:27 Fluticasone/Vilanterol (Fluticasone/Vilanterol 100/25mcg 14 Puffs/Inhaler) 1 puffs INH DAILY SILVIA Stop: 05/29/21 08:59 Last Admin: 04/29/21 07:59 Dose: 1 puffs Documented by: Furosemide (Furosemide 40 Mg Tab) 40 mg PO QAM [facility] Stop: 05/29/21 08:59 Last Admin: 04/29/21 07:57 Dose: 40 mg Documented by: Heparin Sodium (Porcine) (Heparin Sod 5,000 Unit/0.5 Ml Vial) 5,000 units SQ Q8 [facility] Stop: 05/29/21 05:59 Last Admin: 04/29/21 06:30 Dose: 5,000 units Documented by: Heparin Sodium (Porcine) (Heparin Sod (Porcine) 1000 Unit/Ml) 1,000 units IV TODAY@1000 SILVIA Stop: 04/29/21 15:00 Hydralazine HCl (Hydralazine Tab 50 Mg Tab) 50 mg PO BID [facility] Stop: 05/29/21 08:59 Last Admin: 04/29/21 07:57 Dose: 50 mg Documented by: Hydralazine HCl (Hydralazine Hcl 20 Mg/Ml Vial) 10 mg IV Q4H PRN PRN Reason: HTN uncontrolled by Enalapril Stop: 05/29/21 09:45 Enalaprilat 0.625 mg/ Syringe 10 mls @ 2 mls/min IV Q4H PRN; Protocol PRN Reason: sbp > 160 Stop: 05/29/21 09:44 Sodium Chloride (Nss 1000ml) 1,000 mls @ 0 mls/hr IV .Q0M PRN PRN Reason: For Hemodialysis Use ONLY Stop: 04/29/21 15:46 Levetiracetam 500 mg/ Sodium (Chloride) 105 mls @ 420 mls/hr IV DAILY@1800 SILVIA; Protocol Stop: 05/29/21 17:59 Insulin Aspart (Insulin Aspart Per Unit) 0 units SC ACHS [facility] Stop: 05/29/21 07:29 Last Admin: 04/29/21 08:15 Dose: Not Given Documented by: Levothyroxine Sodium (Levothyroxine Sodium 25 Mcg Tablet) 25 mcg PO DAILYBB [facility] Stop: 05/29/21 06:29 Last Admin: 04/29/21 06:30 Dose: 25 mcg Documented by: Metoprolol Tartrate (Metoprolol Tartrate 1 Mg/Ml Vial) 2.5 mg IV Q6H [facility] Stop: 05/29/21 00:59 Last Admin: 04/29/21 08:02 Dose: 2.5 mg Documented by: Montelukast Sodium (Montelukast Sodium 10 Mg Tablet) 10 mg PO HS [facility] Stop: 05/29/21 20:59 Nitroglycerin (Nitroglycerin Sl 0.4 Mg/Tab Tab) 0.4 mg SL UD PRN PRN Reason: Angina Stop: 05/29/21 00:27 Ondansetron HCl (Ondansetron Inj 2 Mg/Ml 2 Ml Vial) 4 mg IV Q6H PRN PRN Reason: Nausea Stop: 05/29/21 00:27 Ropinirole HCl (Ropinirole Hcl 0.25 Mg Tablet) 0.5 mg PO HS [facility] Stop: 05/29/21 20:59 Sertraline HCl (Sertraline Hcl 50 Mg Tablet) 150 mg PO QAM [facility] Stop: 05/29/21 08:59 Last Admin: 04/29/21 07:56 Dose: 150 mg Documented by: Sevelamer HCl (Sevelamer Hcl 800 Mg Tablet) 800 mg PO TIDM [facility] Stop: 05/29/21 07:59 Last Admin: 04/29/21 07:58 Dose: 800 mg Documented by: Vitamin D (Cholecalciferol 1,000 Units 25 Mcg Tab) 1,000 units PO DAILY [facility] Stop: 05/29/21 08:59 Last Admin: 04/29/21 07:57 Dose: 1,000 units Documented by: (1) Acute headache Headache type: unspecified Intractability: not intractable Qualified Code(s): R51.9 - Headache, unspecified (2) Atrial fibrillation Atrial fibrillation type: paroxysmal Qualified Code(s): I48.0 - Paroxysmal atrial fibrillation (3) Altered mental status Altered mental status type: unspecified Qualified Code(s): R41.82 - Altered mental status, unspecified
[2021-04-29] MEDS ORDERED: HYDROmorphone INJ 0.5 MG/0.5 ML SYR IV STA (11:04)
[2021-04-29] MEDS: ACETAMINOPHEN 500 MG TAB PO PRN (13:40)
--- NOTE | 2021-04-29 15:08 | Electroencephalogram ---
EEG Procedure Note Date of Service April 29, 2021 Start / End Times Start Time: 701 End Time: [address] Tristan History Recurrent episodes of confusion disorientation and falls with severe altered consciousness. Possible seizures Home Medication List Medication Instructions Recorded Confirmed Type aspirin 81 mg tablet,delayed 81 mg PO QAM 02/18/18 04/28/21 History release (Aspirin Low Dose) fluticasone propionate 50 1 spray INTRANASAL DAILY PRN 02/18/18 04/28/21 History mcg/actuation nasal spray,suspension (Flonase Allergy Relief) levothyroxine 25 mcg tablet 25 mcg PO QAM 02/18/18 04/28/21 History montelukast 10 mg tablet 10 mg PO HS 02/18/18 04/28/21 History (Singulair) sertraline 100 mg tablet (Zoloft) 150 mg PO QAM 02/18/18 04/28/21 History sevelamer carbonate 800 mg tablet 800 mg PO TIDM 03/26/19 04/28/21 History (Renvela) amlodipine 10 mg tablet (Norvasc) 10 mg PO QAM 03/23/20 04/28/21 History linagliptin 5 mg tablet (Tradjenta) 5 mg PO QAM 03/23/20 04/28/21 History nitroglycerin 0.4 mg sublingual 0.4 mg SUBLINGUAL UD PRN 03/23/20 04/28/21 History tablet (Nitrostat) furosemide 40 mg tablet 40 mg PO QAM 01/07/21 04/28/21 History ammonium lactate 12 % topical cream 1 applic TOPICAL DAILY PRN 01/25/21 04/28/21 History buspirone 5 mg tablet 5 mg PO BID 01/25/21 04/28/21 History cholecalciferol (vitamin D3) 25 25 mcg PO DAILY 01/25/21 04/28/21 History mcg (1,000 unit) capsule (Vitamin D3) epinephrine 0.3 mg/0.3 mL 0.3 mg IM Q4H PRN 01/25/21 04/28/21 History injection, auto-injector ipratropium 0.5 mg-albuterol 3 mg 3 ml INHALATION Q4H PRN 01/25/21 04/28/21 History (2.5 mg base)/3 mL nebulization soln ondansetron HCl 8 mg tablet 8 mg PO TID PRN 01/25/21 04/28/21 History metoprolol tartrate 25 mg tablet 25 mg PO BID #60 tab 02/01/21 04/28/21 Rx albuterol sulfate 90 mcg/actuation 2 inh INHALATION Q4H PRN 04/08/21 04/28/21 History aerosol inhaler azelastine 137 mcg (0.1 %) nasal 2 spray INTRANASAL BID 04/08/21 04/28/21 History spray aerosol clopidogrel 75 mg tablet 75 mg PO DAILY 04/08/21 04/28/21 History fluticasone furoate 100 1 inh INHALATION DAILY 04/08/21 04/28/21 History mcg-vilanterol 25 mcg/dose inhalation powder (Breo Ellipta) loperamide 2 mg capsule 2 mg PO DAILY 04/08/21 04/28/21 History melatonin 3 mg tablet 3 mg PO HS #0 04/08/21 04/28/21 History ropinirole 0.25 mg tablet 0.5 mg PO HS 04/08/21 04/28/21 History hydralazine 25 mg tablet 50 mg PO BID #0 tab 04/09/21 04/28/21 Rx diphenoxylate-atropine 2.5 1 tab PO DAILY PRN 04/24/21 04/28/21 History mg-0.025 mg tablet (Lomotil) loratadine 10 mg tablet 5 mg PO DAILY 04/24/21 04/28/21 History azithromycin 250 mg tablet 250 mg PO UD 04/28/21 04/28/21 History Inpatient Medication List Acetaminophen (Acetaminophen 500 Mg Tab) 1,000 mg PO Q6H PRN PRN Reason: Headache Stop: 05/29/21 09:45 Last Admin: 04/29/21 13:40 Dose: 1,000 mg Documented by: [id number] Amlodipine Besylate (Amlodipine Besylate 5 Mg Tab) 10 mg PO [facility] Stop: 05/29/21 08:59 Last Admin: 04/29/21 07:58 Dose: 10 mg Documented by: [id number] Aspirin (Aspirin 81 Mg Ectab) 81 mg PO [facility] Stop: 05/29/21 08:59 Last Admin: 04/29/21 07:57 Dose: 81 mg Documented by: [id number] Azelastine HCl (Azelastine Hcl 0.1% Nasal 200 Sprays/27,400 Mcg Btl) 2 sprays NA BID [facility] Stop: 05/29/21 08:59 Last Admin: 04/29/21 07:56 Dose: 2 sprays Documented by: [id number] Clopidogrel Bisulfate (Clopidogrel Bisulfate 75 Mg Tab) 75 mg PO DAILY [facility] Stop: 05/29/21 08:59 Last Admin: 04/29/21 07:57 Dose: 75 mg Documented by: [id number] Fluticasone/Vilanterol (Fluticasone/Vilanterol 100/25mcg 14 Puffs/Inhaler) 1 puffs INH DAILY [facility] Stop: 05/29/21 08:59 Last Admin: 04/29/21 07:59 Dose: 1 puffs Documented by: [id number] Furosemide (Furosemide 40 Mg Tab) 40 mg PO QAM [facility] Stop: 05/29/21 08:59 Last Admin: 04/29/21 07:57 Dose: 40 mg Documented by: [id number] Heparin Sodium (Porcine) (Heparin Sod 5,000 Unit/0.5 Ml Vial) 5,000 units SQ Q8 [facility] Stop: 05/29/21 05:59 Last Admin: 04/29/21 13:41 Dose: 5,000 units Documented by: [id number] Admin: 04/29/21 06:30 Dose: 5,000 units Documented by: [id number] Hydralazine HCl (Hydralazine Tab 50 Mg Tab) 50 mg PO BID [facility] Stop: 05/29/21 08:59 Last Admin: 04/29/21 07:57 Dose: 50 mg Documented by: [id number] Insulin Aspart (Insulin Aspart Per Unit) 0 units SC ACHS [facility] Stop: 05/29/21 07:29 Last Admin: 04/29/21 12:16 Dose: Not Given Documented by: [id number] Admin: 04/29/21 08:15 Dose: Not Given Documented by: [id number] Levothyroxine Sodium (Levothyroxine Sodium 25 Mcg Tablet) 25 mcg PO DAILYBB [facility] Stop: 05/29/21 06:29 Last Admin: 04/29/21 06:30 Dose: 25 mcg Documented by: [id number] Metoprolol Tartrate (Metoprolol Tartrate 1 Mg/Ml Vial) 2.5 mg IV Q6H [facility] Stop: 05/29/21 00:59 Last Admin: 04/29/21 13:40 Dose: 2.5 mg Documented by: [id number] Admin: 04/29/21 08:02 Dose: 2.5 mg Documented by: [id number] Admin: 04/29/21 03:11 Dose: Not Given Documented by: [id number] Sertraline HCl (Sertraline Hcl 50 Mg Tablet) 150 mg PO QAM [facility] Stop: 05/29/21 08:59 Last Admin: 04/29/21 07:56 Dose: 150 mg Documented by: [id number] Sevelamer HCl (Sevelamer Hcl 800 Mg Tablet) 800 mg PO TIDM [facility] Stop: 05/29/21 07:59 Last Admin: 04/29/21 13:22 Dose: Not Given Documented by: [id number] Admin: 04/29/21 07:58 Dose: 800 mg Documented by: [id number] Vitamin D (Cholecalciferol 1,000 Units 25 Mcg Tab) 1,000 units PO DAILY [facility] Stop: 05/29/21 08:59 Last Admin: 04/29/21 07:57 Dose: 1,000 units Documented by: [id number] Discontinued Medications Acetaminophen (Acetaminophen 325 Mg Tab) 650 mg PO Q4H PRN PRN Reason: Pain or Fever Stop: 05/29/21 00:27 Last Admin: 04/29/21 08:06 Dose: 650 mg Documented by: [id number] Hydralazine HCl (Hydralazine Hcl 20 Mg/Ml Vial) 10 mg IV NOW STA Stop: 04/28/21 19:47 Last Admin: 04/28/21 20:04 Dose: 10 mg Documented by: [id number] Hydralazine HCl (Hydralazine Hcl 20 Mg/Ml Vial) 7.5 mg IV Q6H PRN PRN Reason: Hypertension Stop: 05/29/21 00:27 Last Admin: 04/29/21 09:52 Dose: 7.5 mg Documented by: [id number] Hydromorphone HCl (Hydromorphone Inj 0.5 Mg/0.5 Ml Syr) 0.25 mg IV NOW STA Stop: 04/29/21 11:05 Last Admin: 04/29/21 11:12 Dose: 0.25 mg Documented by: [id number] Sodium Chloride (Nss 1000ml) 1,000 mls @ 50 mls/hr IV .Q20H [facility] Stop: 04/29/21 20:59 Last Infusion: 04/29/21 09:56 Dose: 0 mls/hr Documented by: [id number] Admin: 04/29/21 00:57 Dose: 50 mls/hr Documented by: [id number] Levetiracetam 500 mg/ Sodium (Chloride) 105 mls @ 420 mls/hr IV NOW STA Stop: 04/29/21 10:39 Last Infusion: 04/29/21 11:34 Dose: 0 mls/hr Documented by: [id number] Admin: 04/29/21 11:12 Dose: 420 mls/hr Documented by: [id number] Naloxone HCl (Naloxone Hcl 0.4 Mg/1 Ml Vial/Carp) Confirm Administered Dose 0.4 mg .ROUTE .STK-MED ONE Stop: 04/28/21 18:35 Last Admin: 04/28/21 23:06 Dose: Not Given Documented by: [id number] Description This is a 21 electrode EEG with a single channel dedicated to limited EKG. The electrodes were placed in accordance with the International 10-20 system. This EEG was done as a bedside recording and unfortunately is hampered by quite a bit of muscle and movement artifact early on tracing. Once this activity ceases and electrode artifacts overlying the left hemisphere disappeared EEG is interpretable. Photic stimulation is performed. Drowsiness and light sleep were not clearly recorded No normal alpha rhythm is seen. There is a posterior rhythm of about 8 Hz maximum frequency and of 30 V maximum amplitude which appears to be symmetrical and a slightly slower mid to lower frequencies theta activity of moderate voltage overlying the central regions in a symmetrical fashion. Beta activity is visible bifrontally The major abnormal feature of the tracing is the appearance of random nonrhythmic variable frequency isolated sharp waves which have the appearance of periodic short duration generalized discharges and are potentially epileptogenic but do not appear to be focal and occur at a maximum several times per second generally more randomly every 10 to 15 seconds and are not associated with any clear clinical accompaniments demonstrable by video analysis Foot examination provokes minimal driving responses if any and no photo myogenic or photoparoxysmal components are seen Interpretation This EEG is abnormal revealing evidence for generalized nonfocal slowing consistent with a nonspecific encephalopathy but also evidence for what appears to be periodic generalized discharges consisting of single nonfocal sharp waves occurring at variable frequency which would indicate densely epileptogenic patterns Clinical Correlation See above abnormal EEG with generalized slowing indicative of a nonfocal encephalopathy of nonspecific type and more importantly findings that suggest potentially epileptogenic activity in the form of periodic generalized discharges of isolated type Oneal Manzano MD
--- NOTE | 2021-04-29 15:24 | Hospitalist Progress Note ---
Date of Service April 29, 2021 Assessment & Plan (1) Unresponsive episode: Plan: Admitted with unresponsive episode and a fall Has had similar episodes before and is thought to be due to polypharmacy Her medication does not include any narcotics She is alert awake and oriented when I examined her She does not have any significant injury from the fall Noted to have seizure spike on EEG-could have initiated the fall Seizure disorder Noted to have jerking movement involving the extremities EEG came back positive for seizure spike Appreciate neurology input and recommendation Has been started on intravenous Keppra (2) Atrial fibrillation: Plan: History of atrial fibrillation, CAD status post CABG and on aspirin and Plavix Appreciate cardiology input and recommendation Rate seems to be controlled (3) Hypertensive urgency: Plan: Blood pressure was noted to be very high at presentation Could be complicating change in mental status No evidence of stroke and/or bleeding in the head Ongoing headache without any neurological symptoms Has been getting intravenous beta-arturo, intravenous hydralazine and oral amlodipine to control blood pressure Appreciate cardiology and nephrology input Blood pressure seems to be controlled now (4) Fall: Plan: As above (5) End stage renal disease: Plan: Has end-stage renal disease on hemodialysis She missed her dialysis yesterday Appreciate nephrology input and recommendation She will have dialysis today (6) DM2 (diabetes mellitus, type 2): Plan: Continue with SSI Check blood sugar AC at bedtime (7) COPD (chronic obstructive pulmonary disease): Plan: History of COPD without any exacerbation now (8) Restless leg syndrome: Plan: We will continue current medication Plan: DVT prophylaxis-subcu heparin CODE STATUS Full Admission and Anticipated Discharge Date Admission Date: April 28, 2021 Subjective 04/29/2021 The patient was seen and examined in telemetry unit She has been complaining of severe headache without any associated symptoms of n ausea no vomiting, dizziness and/or numbness tingling in the extremities No neurodeficit but she does have tremors and abnormal movements involving the upper and to some extent lower extremities Denies any chest pain and/or palpitation Review of Systems Review of Systems: Unobtainable due to cognitive status Physical Exam Physical Exam: No acute arthritis in any joint lying in bed with acute discomfort secondary to severe headache Constitutional: + ill appearing and average body habitus Eyes: Closed ENMT: external ear and nose normal, oropharynx normal Neck: no nuchal rigidity Respiratory: no respiratory distress Auscultation: lungs clear to auscultation bilaterally and + diminished lung sounds; no crackles Cardiovascular: Rate/Rhythm: regular rate, regular rhythm and + bradycardic Heart Sounds: normal S1 and normal S2; no murmur Extremities: no edema Gastrointestinal (Abdomen): Inspection/Auscultation: normal bowel sounds; abdomen not distended Percussion/Palpation: abdomen soft; abdomen nontender Musculoskeletal: No acute arthritis in any joint Neurologic: Alert and awake. Complains extreme headache. No focal neurodeficit but has tremors involving the upper and lower extremities Results & Data Results & Data ([facility]) Vital Signs (Past 12 Hours) Vital Signs Temp Pulse Pulse Resp BP BP Pulse Ox 04/29/21 14:45 53 L 04/29/21 13:40 63 160/66 H 04/29/21 11:48 36.8 C 63 18 147/54 H 94 04/29/21 10:45 65 18 144/63 H 95 04/29/21 10:30 63 04/29/21 09:46 37.2 C 63 186/64 H 93 04/29/21 08:02 71 177/68 H 04/29/21 07:42 36.7 C 71 16 177/68 H 95 04/29/21 04:17 63 04/29/21 03:14 57 L 10 L 158/63 H 95 Laboratory Results Short CBC 04/28/21 04/29/21 Range/Units 18:54 06:54 WBC 7.93 6.29 (4.8-10.8) K/uL Hgb 11.9 L 10.7 L (12.0-16.0) g/dL Hct 37.3 33.8 L (37-47) % Plt Count 212 205 (130-400) K/uL BMP 04/28/21 04/29/21 18:54 06:54 Sodium 141 141 Potassium 5.0 4.8 Chloride 102 108 H Carbon Dioxide 28 24 BUN 68 H 67 H Creatinine 5.13 H* D 4.91 H* Glucose 143 H 132 H Calcium 9.0 8.4 L Cardiac Enzymes 04/28/21 04/29/21 04/29/21 Range/Units 18:54 06:54 10:49 Troponin I < 0.03 < 0.03 < 0.03 (0-0.04) ng/ml Liver Function 04/28/21 Range/Units 18:54 Total Bilirubin 0.5 (0.2-1.0) mg/dl AST 16 (13-39) U/L ALT 15 (7-52) U/L Alkaline Phosphatase 103 (34-104) U/L Albumin 3.9 (3.4-5.0) gm/dl Urine 04/28/21 Range/Units 19:16 Urine Color Yellow Urine Appearance Clear (Clear) Urine pH 8.0 H (4.5-7.5) Ur Specific [place] 1.013 (1.000-1.030) Urine Protein 3+ H (Negative) Urine Glucose (UA) Negative (Negative) Medications Administered Current Inpatient Medications Acetaminophen (Acetaminophen 500 Mg Tab) 1,000 mg PO Q6H PRN PRN Reason: Headache Stop: 05/29/21 09:45 Last Admin: 04/29/21 13:40 Dose: 1,000 mg Documented by: Albuterol (Albuterol Hfa 8 Gm Inhaler) 2 puffs INH Q4R PRN PRN Reason: Shortness Of Breath Stop: 05/29/21 00:27 Albuterol (Albut/Ipratrop 3mg/0.5mg Neb 3 Ml Vial) 3 ml INH Q4R PRN; Protocol PRN Reason: Shortness Of Breath Stop: 05/29/21 00:27 Amlodipine Besylate (Amlodipine Besylate 5 Mg Tab) 10 mg PO QAM [facility] Stop: 05/29/21 08:59 Last Admin: 04/29/21 07:58 Dose: 10 mg Documented by: Aspirin (Aspirin 81 Mg Ectab) 81 mg PO QAM [facility] Stop: 05/29/21 08:59 Last Admin: 04/29/21 07:57 Dose: 81 mg Documented by: Azelastine HCl (Azelastine Hcl 0.1% Nasal 200 Sprays/27,400 Mcg Btl) 2 sprays NA BID [facility] Stop: 05/29/21 08:59 Last Admin: 04/29/21 07:56 Dose: 2 sprays Documented by: Clopidogrel Bisulfate (Clopidogrel Bisulfate 75 Mg Tab) 75 mg PO DAILY [facility] Stop: 05/29/21 08:59 Last Admin: 04/29/21 07:57 Dose: 75 mg Documented by: Epinephrine HCl (Epinephrine Inj 1 Mg/Ml Amp) 0.3 mg IM Q4H PRN PRN Reason: Anaphylaxis Stop: 05/29/21 00:53 Fluticasone Propionate (Fluticasone Propionate Na Spr 16 Gm Btl) 1 sprays NA DAILY PRN PRN Reason: Nasal Congestion Stop: 05/29/21 00:27 Fluticasone/Vilanterol (Fluticasone/Vilanterol 100/25mcg 14 Puffs/Inhaler) 1 puffs INH DAILY [facility] Stop: 05/29/21 08:59 Last Admin: 04/29/21 07:59 Dose: 1 puffs Documented by: Furosemide (Furosemide 40 Mg Tab) 40 mg PO QAM [facility] Stop: 05/29/21 08:59 Last Admin: 04/29/21 07:57 Dose: 40 mg Documented by: Heparin Sodium (Porcine) (Heparin Sod 5,000 Unit/0.5 Ml Vial) 5,000 units SQ Q8 [facility] Stop: 05/29/21 05:59 Last Admin: 04/29/21 13:41 Dose: 5,000 units Documented by: Hydralazine HCl (Hydralazine Tab 50 Mg Tab) 50 mg PO BID [facility] Stop: 05/29/21 08:59 Last Admin: 04/29/21 07:57 Dose: 50 mg Documented by: Hydralazine HCl (Hydralazine Hcl 20 Mg/Ml Vial) 10 mg IV Q4H PRN PRN Reason: HTN uncontrolled by Enalapril Stop: 05/29/21 09:45 Enalaprilat 0.625 mg/ Syringe 10 mls @ 2 mls/min IV Q4H PRN; Protocol PRN Reason: sbp > 160 Stop: 05/29/21 09:44 Sodium Chloride (Nss 1000ml) 1,000 mls @ 0 mls/hr IV .Q0M PRN PRN Reason: For Hemodialysis Use ONLY Stop: 04/29/21 15:46 Levetiracetam 500 mg/ Sodium (Chloride) 105 mls @ 420 mls/hr IV DAILY@1800 [facility]; Protocol Stop: 05/29/21 17:59 Insulin Aspart (Insulin Aspart Per Unit) 0 units SC ACHS [facility] Stop: 05/29/21 07:29 Last Admin: 04/29/21 12:16 Dose: Not Given Documented by: Levothyroxine Sodium (Levothyroxine Sodium 25 Mcg Tablet) 25 mcg PO DAILYBB [facility] Stop: 05/29/21 06:29 Last Admin: 04/29/21 06:30 Dose: 25 mcg Documented by: Metoprolol Tartrate (Metoprolol Tartrate 1 Mg/Ml Vial) 2.5 mg IV Q6H [facility] Stop: 05/29/21 00:59 Last Admin: 04/29/21 13:40 Dose: 2.5 mg Documented by: Montelukast Sodium (Montelukast Sodium 10 Mg Tablet) 10 mg PO HS [facility] Stop: 05/29/21 20:59 Nitroglycerin (Nitroglycerin Sl 0.4 Mg/Tab Tab) 0.4 mg SL UD PRN PRN Reason: Angina Stop: 05/29/21 00:27 Ondansetron HCl (Ondansetron Inj 2 Mg/Ml 2 Ml Vial) 4 mg IV Q6H PRN PRN Reason: Nausea Stop: 05/29/21 00:27 Ropinirole HCl (Ropinirole Hcl 0.25 Mg Tablet) 0.5 mg PO HS [facility] Stop: 05/29/21 20:59 Sertraline HCl (Sertraline Hcl 50 Mg Tablet) 150 mg PO QAM [facility] Stop: 05/29/21 08:59 Last Admin: 04/29/21 07:56 Dose: 150 mg Documented by: Sevelamer HCl (Sevelamer Hcl 800 Mg Tablet) 800 mg PO TIDM [facility] Stop: 05/29/21 07:59 Last Admin: 04/29/21 13:22 Dose: Not Given Documented by: Vitamin D (Cholecalciferol 1,000 Units 25 Mcg Tab) 1,000 units PO DAILY [facility] Stop: 05/29/21 08:59 Last Admin: 04/29/21 07:57 Dose: 1,000 units Documented by: (1) Atrial fibrillation Atrial fibrillation type: paroxysmal Qualified Code(s): I48.0 - Paroxysmal atrial fibrillation (2) Fall Encounter type: initial encounter Qualified Code(s): W19.XXXA - Unspecified fall, initial encounter
--- NOTE | 2021-04-29 15:28 | Communication Note ---
Date of Service: April 29, 2021 I am seeing Mimi Wakefield for the second time in neurologic consultation having last evaluated her in March when she presented with a very similar e vent i.e. having been found on the floor of her bathroom by her son in a confused state and at that time we went through a long diagnostic series of studies including MRI of the brain CT scans EEGs etc. along with toxicology screens as a prior event of similar type had been associated with narcotic overdose but this event was not an I was very tempted to start empiric anticonvulsants but did not hoping that we would be able to document seizure activity on an outpatient basis with a 72-hour EEG. Unfortunately she did not follow-up for that visit the study was not done and she now is back in the hospital having been found once again on the floor of her bathroom in a confused agitated state. All of this occurs in the setting of end-stage renal disease on dialysis and it appears she probably missed a dialysis session like she did previously and is currently in the dialysis unit. She has known cardiovascular disease status post CABG with paroxysmal atrial fibrillation, may have had recurrent atrial fibrillation recently but now is in sinus rhythm and I refer the reader to cardiology notes for more details and recommendations She is also quite hypertensive and management of this is underway Other problems include chronic anemia related to her renal disease, baseline hypertension, history of a CVA post carotid endarterectomy, paroxysmal atrial fibrillation and coronary artery disease as noted above, type 2 diabetes, depression anxiety and insomnia, history of Coumadin intolerance of uncertain cause Medications with whom compliance is unclear include albuterol amlodipine ammo nium lactate aspirin azelastine azithromycin Breo Ellipta BuSpar, cholecalciferol Plavix, Lomotil, fluticasone furosemide, hydralizine albuterol levothyroxine loperamide loratadine melatonin Toprol Singulair nitroglycerin Requip sertraline Renvela Zofran and Tradjenta She claims allergies to bee venom prednisone tomatoes penicillins rosuvastatin trazodone and intolerance to Coumadin Family history is as recorded. Social history reveals her to be recently and was quite depressed over the of her to the point that there may have been a suicide gesture with drug overdose back in January Review of systems cannot be obtained from the patient today Imaging studies thus far have shown no evidence for new vascular event on CT scan but an MRI is pending laboratory studies indicate evidence for chronic renal failure and are otherwise relatively unremarkable without significant leukocytosis, with a negative toxicology screen etc. And EEG shows evidence for periodic isolated generalized discharges and generalized slowing consistent with potentially epileptogenic activity and a nonspecific encephalopathy respectively Exam reveals blood pressure 160/66 pulse 53 respirations are 18 temperature is 36 8 O2 saturation 94% on room air She is currently in dialysis awake but only superficially oriented complains of her headache and states repeatedly that she hit her head. She will follow very few commands does not have obvious head or eye deviation seems to move all extremities reasonably well but I do not see any evidence for potentially ongoing epileptiform activity such as myoclonus twitching jerking movements of extremities or periodic eye movements The rest examination is very limited and I will try to do a more thorough 1 tomorrow I believe the events that have occurred at least the last 2 time she has been admitted are seizures and last time I was very close to starting her on Keppra but unfortunately elected to wait for an outpatient evaluation to see if we can have more documentation of an abnormal EEG. Now the EEG is abnormal the clinical setting is very suggestive of seizures I think we are needing to start anticonvulsants I recommended a 500 mg Keppra load based on her renal function and a maintenance dose of Keppra 500 mg/day of the immediate release preparation rather than the sustained release. This could be done with 250 mg tablets twice a day or a single daily dose of 500 mg and on the day of dialysis she would need to take a second 500 mg dose to make up for what has been dialyzed after completion of the dialysis procedure I have gone over these recommendations with her current attending physician Dr. Salter. I cannot exclude an embolic shower from paroxysmal atrial fibrillation as per cardiology and would like to see an MRI when she is stable enough to have one done and this will not need to be done with contrast as we are only looking for abnormal findings on diffusion-weighted imaging consistent with new infarction and do not need contrast enhancement to demonstrate these I will check back with her tomorrow Oenal Manzano MD The above note was generated utilizing voice recognition technology and may have spelling errors punctuation errors pronoun usage years and syntax errors
[2021-04-29] MEDS: rOPINIRole HCL 0.25 MG TABLET PO SCH (17:36)
[2021-04-29] MEDS: levETIRAcetam 500 MG in 0.9 % SODIUM CHLORIDE 100 ML IV SCH (18:34)
[2021-04-29] MEDS: MONTELUKAST SODIUM 10 MG TABLET PO SCH (20:37)
[2021-04-29] MEDS ORDERED: levETIRAcetam 250 MG in 0.9 % SODIUM CHLORIDE 100 ML IV SCH (21:00)
--- NOTE | 2021-04-29 21:11 | Electrocardiogram Report ---
Test Reason : Blood Pressure : / mmHG Vent. Rate : 062 BPM Atrial Rate : 060 BPM P-R Int : 000 ms QRS Dur : 062 ms QT Int : 424 ms P-R-T Axes : 000 062 056 degrees QTc Int : 430 ms Poor data quality, interpretation may be adversely affected Sinus rhythm with Premature atrial complexes Possible Septal infarct , age undetermined Abnormal ECG When compared with ECG of 27-APR-2021 13:22, Premature atrial complexes are now Present Confirmed by Bahman Cox ([id number]) on 04/29/2021 9:11:06 PM Referred By: REFERRED SELF Confirmed By:Bahman Cox
--- NOTE | 2021-04-29 21:19 | Electrocardiogram Report ---
Test Reason : Blood Pressure : / mmHG Vent. Rate : 064 BPM Atrial Rate : 064 BPM P-R Int : 152 ms QRS Dur : 076 ms QT Int : 446 ms P-R-T Axes : 068 059 069 degrees QTc Int : 460 ms Normal sinus rhythm When compared with ECG of 18:36, Premature atrial complexes are no longer Present Confirmed by Bahman Cox ([id number]) on 04/29/2021 9:19:41 PM Referred By: REFERRED SELF Confirmed By:Bahman Cox
[2021-04-30] MEDS: ACETAMINOPHEN 500 MG TAB PO PRN ×3 (00:16→16:12)
[2021-04-30] MEDS: METOPROLOL TARTRATE 1 MG/ML VIAL IV SCH ×2 (02:27→06:08)
[2021-04-30] MEDS ORDERED: HYDROmorphone INJ 0.5 MG/0.5 ML SYR IV STA (03:00)
[2021-04-30 04:01] LABS: Buprenorphine, Ur Quant DNR ng/mL (<5); Confirmatory Facility DNR; Noroxycodone DNR ng/mL (<50); Oxycodone,Ur Screen NEGATIVE ng/mL (<100)
[2021-04-30] MEDS: LEVOTHYROXINE SODIUM 25 MCG TABLET PO SCH (06:00)
[2021-04-30] MEDS: HEPARIN SOD 5,000 UNIT/0.5 ML VIAL SQ SCH ×3 (06:01→21:07)
[2021-04-30] MEDS: SEVELAMER HCL 800 MG TABLET PO SCH ×3 (08:15→17:33)
[2021-04-30] MEDS: AZELASTINE HCL 0.1% NASAL 200 SPRAYS/27,400 MCG BTL SCH ×2 (08:16→20:41)
[2021-04-30] MEDS: CHOLECALCIFEROL 1,000 UNITS 25 MCG TAB PO SCH (08:16)
[2021-04-30] MEDS: ASPIRIN 81 MG ECTAB PO SCH (08:16)
[2021-04-30] MEDS: FUROSEMIDE 40 MG TAB PO SCH (08:16)
[2021-04-30] MEDS: SERTRALINE HCL 50 MG TABLET PO SCH (08:16)
[2021-04-30] MEDS: hydrALAZINE TAB 50 MG TAB PO SCH ×2 (08:16→20:44)
[2021-04-30] MEDS: amLODIPine BESYLATE 5 MG TAB PO SCH (08:17)
[2021-04-30] MEDS: INSULIN ASPART PER UNIT SC SCH ×4 (08:17→21:02)
[2021-04-30] MEDS: CLOPIDOGREL BISULFATE 75 MG TAB PO SCH (08:17)
[2021-04-30] MEDS: FLUTICASONE/VILANTEROL 100/25MCG 14 PUFFS/INHALER INH SCH (08:18)
[2021-04-30 09:40] LABS: BUN Creatinine Ratio 7.9 (10-20); Calcium 8.5 mg/dl (8.5-10.1); Creatinine Clr Calc Pharmacy 13.8 ml/min; Est GFR (African American) 14.7 ml/min; Est GFR (Non-African American) 12.7 ml/min; Potassium 3.9 mmol/L (3.5-5.1)
--- NOTE | 2021-04-30 11:08 | Nephrology Progress Note ---
Date of Service April 30, 2021 Assessment & Plan Admission and Anticipated Discharge Date Admission Date: April 28, 2021 Subjective A/p 1 ESRD--NO fluid or lytes issues today. HD will be tomorrow. 3hrs and take 2 kilo off on 2k. 2 AMS/Unresponsiveness--Multifactorial Still under investigation. Since her she has not been acting well. med non adhernce sec to Cost/Confusion. Previous admission polypharmacy--accidental vs Intentional. S----Seems she is back to her baseline status and back to be being super chatty- baseline for her. Physical Exam Constitutional: well developed, well nourished and + acute distress (c/o of CARL) Eyes: EOM intact bilaterally ENMT: Ears: no external ear abnormality Nose: no external nose abnormality Mouth: + dry oral mucous membranes Neck: no nuchal rigidity Respiratory: normal respiratory effort Auscultation: + diminished lung sounds Cardiovascular: RRR, no murmur, no edema Extremities: + AV fistula (+t/b) Gastrointestinal (Abdomen): Inspection/Auscultation: normal bowel sounds Percussion/Palpation: abdomen soft; abdomen nontender Musculoskeletal: Extremities: strength 5/5 throughout Skin: no rashes, warm and dry Neurologic: de paz, fluent speech, no tremor Psychiatric: Orientation: oriented to person and oriented to place Results & Data ([facility]) Vital Signs (Past 12 Hours) Vital Signs Temp Pulse Pulse Resp BP BP Pulse Ox 04/30/21 08:02 36.7 C 58 L 16 164/78 H 95 04/30/21 07:51 60 04/30/21 06:08 57 L 171/67 H 04/30/21 05:59 57 L 171/67 H 04/30/21 03:06 36.8 C 76 22 198/69 H 92 04/30/21 02:27 58 L 163/64 H 04/30/21 02:26 58 L 163/64 H 96 04/30/21 00:00 52 L 04/29/21 23:06 37.0 C 57 L 17 159/64 H 93
[2021-04-30] MEDS: HYDROmorphone INJ 0.5 MG/0.5 ML SYR IV PRN ×2 (11:20→20:42)
--- NOTE | 2021-04-30 12:02 | Cardiology Progress Note ---
Date of Service April 30, 2021 Assessment & Plan (1) Hypertensive urgency: (2) Acute headache: (3) Atrial fibrillation: (4) Altered mental status: Plan: Patient admitted for recurrent unresponsive episode. This is 2nd or 3rd episode in a few months, with significant altered mental status. Tox screen pending. Previously thought to be polypharmacy/OD. Cardiac evaluation remains unrevealing. Telemetry without arrhythmia, EKG with sinus bradycardia Plan: Discontinue IV metoprolol ordered. Resume oral metoprolol at slightly reduced dose to 12.5 mg p.o. twice daily. Maintain telemetry as evaluation progresses. Blood pressure becoming better controlled with plans for dialysis tomorrow Admission and Anticipated Discharge Date Admission Date: April 28, 2021 Subjective Patient was seen and examined, chart, medications, telemetry reviewed. No complaints this morning and mentation appears to be back to baseline. Patient notes no significant recollection of prior events but feels she "fell off her toilet." No arrhythmias on telemetry Review of Systems Review of Systems: All systems reviewed & are unremarkable except as noted in Subjective Physical Exam Constitutional: + thin, + altered mental status and + disheveled Respiratory: normal respiratory effort, lungs clear to auscultation Cardiovascular: Rate/Rhythm: regular rate and regular rhythm Heart Sounds: normal S1, normal S2 and + murmur (II/ systolic murmur LSB) Gastrointestinal (Abdomen): normal bowel sounds, soft, nontender, no hepatosplenomegaly Skin: no rashes, warm and dry Neurologic: + confused Psychiatric: Apperance: + disheveled Results & Data ([facility]) Vital Signs (Past 12 Hours) Vital Signs Temp Pulse Pulse Resp BP BP Pulse Ox 04/30/21 08:02 36.7 C 58 L 16 164/78 H 95 04/30/21 07:51 60 04/30/21 06:08 57 L 171/67 H 04/30/21 05:59 57 L 171/67 H 04/30/21 03:06 36.8 C 76 22 198/69 H 92 04/30/21 02:27 58 L 163/64 H 04/30/21 02:26 58 L 163/64 H 96 04/30/21 00:00 52 L Laboratory Results Laboratory Results - last 24 hr 04/28/21 04/29/21 04/29/21 19:16 10:49 11:22 Sodium Potassium Chloride Carbon Dioxide Anion Gap BUN Creatinine Est Cr Clr Drug Dosing Est GFR ( Amer) Est GFR (Non-Af Amer) BUN/Creatinine Ratio Glucose POC Glucose Calcium Troponin I < 0.03 Nasal Screen MRSA (PCR) Negative Ur Buprenorphine NEGATIVE U Buprenorphine Quant DNR Ur Norbuprenorphine DNR Ur Oxycodone Screen NEGATIVE U Noroxycodone Confirm DNR Ur Oxycodone GC/MS DNR U Oxymorphone GC/MS DNR Drug Screen Comment SEE NOTE Reference Lab DNR 04/29/21 04/29/21 04/30/21 18:32 19:57 07:03 Sodium Potassium Chloride Carbon Dioxide Anion Gap BUN Creatinine Est Cr Clr Drug Dosing Est GFR ( Amer) Est GFR (Non-Af Amer) BUN/Creatinine Ratio Glucose POC Glucose 98 107 H 111 H Calcium Troponin I Nasal Screen MRSA (PCR) Ur Buprenorphine U Buprenorphine Quant Ur Norbuprenorphine Ur Oxycodone Screen U Noroxycodone Confirm Ur Oxycodone GC/MS U Oxymorphone GC/MS Drug Screen Comment Reference Lab 04/30/21 04/30/21 04/30/21 08:42 11:01 11:02 Sodium 136 Potassium 3.9 Chloride 103 Carbon Dioxide 27 Anion Gap 6 BUN 27 H D Creatinine 3.40 H D Est Cr Clr Drug Dosing 13.8 Est GFR ( Amer) 14.7 Est GFR (Non-Af Amer) 12.7 BUN/Creatinine Ratio 7.9 L Glucose 219 H POC Glucose 319 H* 329 H* Calcium 8.5 Troponin I Nasal Screen MRSA (PCR) Ur Buprenorphine U Buprenorphine Quant Ur Norbuprenorphine Ur Oxycodone Screen U Noroxycodone Confirm Ur Oxycodone GC/MS U Oxymorphone GC/MS Drug Screen Comment Reference Lab (1) Acute headache Headache type: unspecified Intractability: not intractable Qualified Code(s): R51.9 - Headache, unspecified (2) Atrial fibrillation Atrial fibrillation type: paroxysmal Qualified Code(s): I48.0 - Paroxysmal atrial fibrillation (3) Altered mental status Altered mental status type: unspecified Qualified Code(s): R41.82 - Altered mental status, unspecified
--- NOTE | 2021-04-30 12:10 | Communication Note ---
Date of Service: April 30, 2021 Mimi is back to her baseline today. She is awake alert oriented has a low- grade headache talks about various bruises she suffered during a fall at home which I think was precipitated by seizure and is without any focal neurologic signs without any myoclonus tremor tics or any other involuntary motor movements and looks very much like she did about a month ago when I last saw her in the recovery period of 1 of these events She was dialyzed yesterday and had no ill effects At this point she is on Keppra and I think he could be switched to an oral 500 mg immediate release tablet taken once a day. I think her risk for poor compliance is high and single daily dosing should be sufficient in light of her renal failure. On the day she receives dialysis she should take an additional tablet immediately after dialysis to ensure that her levels do not fall She apparently had been set up for a 72-hour EEG but was unable to complete the study and apparently took the wires off her head last week so he never did receive the recording she was to be seen after that but that appointment was not scheduled At this point I am going to sign off the case with the recommendation she be discharged when felt to be medically stable on 500 mg of Keppra immediate release tablet each morning and then another 500 mg tablets on the day she has dialysis ideally before she leaves a dialysis unit to ensure compliance We will set her up for a follow-up visit and arrange for Keppra levels on Sunday I will be on throughout the weekend should she have any further neurologic issues but for now she seems to be stable Oneal Manzano MD
[2021-04-30] MEDS: ONDANSETRON INJ 2 MG/ML 2 ML VIAL IV PRN (14:18)
[2021-04-30] MEDS: METOPROLOL TARTRATE 25 MG TAB PO SCH ×3 (14:18→21:07)
--- NOTE | 2021-04-30 14:18 | Hospitalist Progress Note ---
Date of Service April 30, 2021 Assessment & Plan (1) Unresponsive episode: Plan: Admitted with unresponsive episode and a fall Has had similar episodes before and is thought to be due to polypharmacy Her medication does not include any narcotics Urine tox screen did not show any narcotics and benzodiazepines She is alert awake and oriented when I examined her She does not have any significant injury from the fall Noted to have seizure spike on EEG-could have initiated the fall We will get an MRI to rule out any stroke Seizure disorder Noted to have jerking movement involving the extremities EEG came back positive for seizure spike Appreciate neurology input and recommendation Has been started on intravenous Keppra Will change oral Keppra 500 mg as advised and will have additional dose of Keppra on the day of dialysis Severe headache Denies any neurological symptoms and no neck stiffness and/or photophobia No fever and or chills Tylenol is not helping We will try small dose of Dilaudid while in the hospital (2) Atrial fibrillation: Plan: History of atrial fibrillation, CAD status post CABG and on aspirin and Plavix Appreciate cardiology input and recommendation Rate seems to be controlled Medications have been adjusted by the trimmer meat (3) Hypertensive urgency: Plan: Blood pressure was noted to be very high at presentation Could be complicating change in mental status No evidence of stroke and/or bleeding in the head Ongoing headache without any neurological symptoms Has been getting intravenous beta-arturo, intravenous hydralazine and oral amlodipine to control blood pressure Appreciate cardiology and nephrology input Blood pressure seems to be controlled now (4) Fall: Plan: As above (5) End stage renal disease: Plan: Has end-stage renal disease on hemodialysis She missed her dialysis yesterday Appreciate nephrology input and recommendation She will have dialysis today-04/29/2021 (6) DM2 (diabetes mellitus, type 2): Plan: Continue with SSI Check blood sugar AC at bedtime (7) COPD (chronic obstructive pulmonary disease): Plan: History of COPD without any exacerbation now (8) Restless leg syndrome: Plan: We will continue current medication Plan: DVT prophylaxis-subcu heparin CODE STATUS Full Admission and Anticipated Discharge Date Admission Date: April 28, 2021 Subjective 04/29/2021 The patient was seen and examined in telemetry unit She has been complaining of severe headache without any associated symptoms of nausea no vomiting, dizziness and/or numbness tingling in the extremities No neurodeficit but she does have tremors and abnormal movements involving the upper and to some extent lower extremities Denies any chest pain and/or palpitation 04/30/2021 The patient was seen and examined in telemetry unit Today she is completely a different person She is alert awake and oriented x3 but complains to have severe headache Denies any other symptoms Review of Systems Review of Systems: All systems reviewed and are unremarkable except as noted below Physical Exam Physical Exam: No acute arthritis in any joint lying in bed with acute discomfort secondary to severe headache Constitutional: average body habitus; not ill appearing ENMT: external ear and nose normal, oropharynx normal Neck: no nuchal rigidity Respiratory: no respiratory distress Auscultation: lungs clear to auscultation bilaterally and + diminished lung sounds; no crackles Cardiovascular: Rate/Rhythm: regular rate, regular rhythm and + bradycardic Heart Sounds: normal S1 and normal S2; no murmur Extremities: no edema Gastrointestinal (Abdomen): Inspection/Auscultation: normal bowel sounds; abdomen not distended Percussion/Palpation: abdomen soft; abdomen nontender Musculoskeletal: No acute arthritis in any joint Neurologic: Has headache without any neurological symptoms. No focal neurodeficit Results & Data Results & Data ([facility]) Vital Signs (Past 12 Hours) Vital Signs Temp Pulse Pulse Pulse Resp BP BP 04/30/21 11:59 37.0 C 55 L 16 158/76 H 04/30/21 08:02 36.7 C 58 L 16 164/78 H 04/30/21 07:51 60 04/30/21 06:08 57 L 171/67 H 04/30/21 05:59 57 L 171/67 H 04/30/21 03:06 36.8 C 76 22 198/69 H 04/30/21 02:27 58 L 163/64 H 04/30/21 02:26 58 L 163/64 H Pulse Ox 04/30/21 11:59 96 04/30/21 08:02 95 04/30/21 07:51 04/30/21 06:08 04/30/21 05:59 04/30/21 03:06 92 04/30/21 02:27 04/30/21 02:26 96 Laboratory Results BMP 04/30/21 08:42 Sodium 136 Potassium 3.9 Chloride 103 Carbon Dioxide 27 BUN 27 H D Creatinine 3.40 H D Glucose 219 H Calcium 8.5 Medications Administered Current Inpatient Medications Acetaminophen (Acetaminophen 500 Mg Tab) 1,000 mg PO Q6H PRN PRN Reason: Headache Stop: 05/29/21 09:45 Last Admin: 04/30/21 10:09 Dose: 1,000 mg Documented by: Albuterol (Albuterol Hfa 8 Gm Inhaler) 2 puffs INH Q4R PRN PRN Reason: Shortness Of Breath Stop: 05/29/21 00:27 Albuterol (Albut/Ipratrop 3mg/0.5mg Neb 3 Ml Vial) 3 ml INH Q4R PRN; Protocol PRN Reason: Shortness Of Breath Stop: 05/29/21 00:27 Amlodipine Besylate (Amlodipine Besylate 5 Mg Tab) 10 mg PO QAM [facility] Stop: 05/29/21 08:59 Last Admin: 04/30/21 08:17 Dose: 10 mg Documented by: Aspirin (Aspirin 81 Mg Ectab) 81 mg PO QAM [facility] Stop: 05/29/21 08:59 Last Admin: 04/30/21 08:16 Dose: 81 mg Documented by: Azelastine HCl (Azelastine Hcl 0.1% Nasal 200 Sprays/27,400 Mcg Btl) 2 sprays NA BID [facility] Stop: 05/29/21 08:59 Last Admin: 04/30/21 08:16 Dose: 2 sprays Documented by: Clopidogrel Bisulfate (Clopidogrel Bisulfate 75 Mg Tab) 75 mg PO DAILY [facility] Stop: 05/29/21 08:59 Last Admin: 04/30/21 08:17 Dose: 75 mg Documented by: Epinephrine HCl (Epinephrine Inj 1 Mg/Ml Amp) 0.3 mg IM Q4H PRN PRN Reason: Anaphylaxis Stop: 05/29/21 00:53 Fluticasone Propionate (Fluticasone Propionate Na Spr 16 Gm Btl) 1 sprays NA DAILY PRN PRN Reason: Nasal Congestion Stop: 05/29/21 00:27 Fluticasone/Vilanterol (Fluticasone/Vilanterol 100/25mcg 14 Puffs/Inhaler) 1 puffs INH DAILY [facility] Stop: 05/29/21 08:59 Last Admin: 04/30/21 08:18 Dose: 1 puffs Documented by: Furosemide (Furosemide 40 Mg Tab) 40 mg PO QAM [facility] Stop: 05/29/21 08:59 Last Admin: 04/30/21 08:16 Dose: 40 mg Documented by: Heparin Sodium (Porcine) (Heparin Sod 5,000 Unit/0.5 Ml Vial) 5,000 units SQ Q8 [facility] Stop: 05/29/21 05:59 Last Admin: 04/30/21 06:01 Dose: 5,000 units Documented by: Hydralazine HCl (Hydralazine Tab 50 Mg Tab) 50 mg PO BID [facility] Stop: 05/29/21 08:59 Last Admin: 04/30/21 08:16 Dose: 50 mg Documented by: Hydralazine HCl (Hydralazine Hcl 20 Mg/Ml Vial) 10 mg IV Q4H PRN PRN Reason: HTN uncontrolled by Enalapril Stop: 05/29/21 09:45 Hydromorphone HCl (Hydromorphone Inj 0.5 Mg/0.5 Ml Syr) 0.25 mg IV Q6H PRN PRN Reason: Pain Stop: 05/14/21 09:02 Last Admin: 04/30/21 11:20 Dose: 0.25 mg Documented by: Enalaprilat 0.625 mg/ Syringe 10 mls @ 2 mls/min IV Q4H PRN; Protocol PRN Reason: sbp > 160 Stop: 05/29/21 09:44 Levetiracetam 500 mg/ Sodium (Chloride) 105 mls @ 420 mls/hr IV DAILY@1800 [facility]; Protocol Stop: 05/29/21 17:59 Last Infusion: 04/29/21 19:28 Dose: Infused Documented by: Sodium Chloride (Nss 1000ml) 1,000 mls @ 0 mls/hr IV .Q0M PRN PRN Reason: For Hemodialysis Use ONLY Stop: 05/01/21 12:59 Insulin Aspart (Insulin Aspart Per Unit) 0 units SC ACHS [facility] Stop: 05/29/21 07:29 Last Admin: 04/30/21 12:06 Dose: 10 units Documented by: Levothyroxine Sodium (Levothyroxine Sodium 25 Mcg Tablet) 25 mcg PO DAILYBB [facility] Stop: 05/29/21 06:29 Last Admin: 04/30/21 06:00 Dose: 25 mcg Documented by: Metoprolol Tartrate (Metoprolol Tartrate 25 Mg Tab) 12.5 mg PO BID [facility] Stop: 05/30/21 12:14 Montelukast Sodium (Montelukast Sodium 10 Mg Tablet) 10 mg PO HS [facility] Stop: 05/29/21 20:59 Last Admin: 04/29/21 20:37 Dose: 10 mg Documented by: Nitroglycerin (Nitroglycerin Sl 0.4 Mg/Tab Tab) 0.4 mg SL UD PRN PRN Reason: Angina Stop: 05/29/21 00:27 Ondansetron HCl (Ondansetron Inj 2 Mg/Ml 2 Ml Vial) 4 mg IV Q6H PRN PRN Reason: Nausea Stop: 05/29/21 00:27 Ropinirole HCl (Ropinirole Hcl 0.25 Mg Tablet) 0.5 mg PO HS [facility] Stop: 05/29/21 20:59 Last Admin: 04/29/21 17:36 Dose: 0.5 mg Documented by: Sertraline HCl (Sertraline Hcl 50 Mg Tablet) 150 mg PO QAM [facility] Stop: 05/29/21 08:59 Last Admin: 04/30/21 08:16 Dose: 150 mg Documented by: Sevelamer HCl (Sevelamer Hcl 800 Mg Tablet) 800 mg PO TIDM [facility] Stop: 05/29/21 07:59 Last Admin: 04/30/21 12:09 Dose: 800 mg Documented by: Vitamin D (Cholecalciferol 1,000 Units 25 Mcg Tab) 1,000 units PO DAILY [facility] Stop: 05/29/21 08:59 Last Admin: 04/30/21 08:16 Dose: 1,000 units Documented by: (1) Atrial fibrillation Atrial fibrillation type: paroxysmal Qualified Code(s): I48.0 - Paroxysmal atrial fibrillation (2) Fall Encounter type: initial encounter Qualified Code(s): W19.XXXA - Unspecified fall, initial encounter
--- NOTE | 2021-04-30 14:36 | Magnetic Resonance Report ---
MRI OF THE BRAIN WITHOUT IV CONTRAST CLINICAL HISTORY: Strokelike symptoms. COMPARISON STUDY: CT of the brain dated 04/28/2021. MRI of the brain dated 04/08/2021 TECHNIQUE: MRI of the brain was performed utilizing various T1 and T2-weighted sequences in the axial and sagittal planes. IV contrast was not administered for this examination. The vomited and then dec lined to finish the examination. Coronal FLAIR imaging was not obtained. FINDINGS: Brain parenchyma: There is age-related involutional change noting mild subcortical and periventricula r microangiopathic disease. There is no hemorrhage or mass effect. There is no restricted diffusion t o suggest acute ischemia. Pal-white matter differentiation is preserved. No extra-axial fluid collec tion is seen. The cerebellar tonsils are normal in configuration. Ventricles, sulci, and cisterns: Prominent secondary to involutional change. Pituitary and sella: Partially empty sella is incidentally noted. Intracranial vasculature: Normal flow voids are maintained at the skull base. Orbits: The bony orbits are grossly intact. Orbital contents are normal in appearance noting bilatera l ocular lens implants. Sinuses and mastoids: Clear. Calvarium: Unremarkable. Cervical cord: Partially visualized cervical spinal cord is normal in morphology and signal intensity . IMPRESSION: 1. No acute intracranial abnormality is identified. 2. The patient vomited during the examination and declined to complete the study. Coronal FLAIR image s were not acquired. ACT 112: Negative or not required by law. Electronically signed by: Ricki Raza M.D. 04/30/2021 2:35 PM
[2021-04-30] MEDS: CARBOHYDRATES FOR HYPOGLYCEMIA PO PRN ×2 (14:54→15:10)
[2021-04-30] MEDS ORDERED: DEXTROSE 50% 50 ML SYRINGE IV PRN (15:01)
[2021-04-30] MEDS ORDERED: GLUCAGON FOR INJ 1 MG VIAL SQ PRN (15:01)
[2021-04-30] MEDS ORDERED: GLUCOSE 10 TABS/TUBE PO PRN (15:01)
[2021-04-30] MEDS ORDERED: GLUCOSE 40% GEL 15 GM TUBE PO PRN (15:01)
[2021-04-30] MEDS: levETIRAcetam 500 MG in 0.9 % SODIUM CHLORIDE 100 ML IV SCH (17:34)
[2021-04-30] MEDS: MONTELUKAST SODIUM 10 MG TABLET PO SCH (20:45)
[2021-04-30] MEDS: rOPINIRole HCL 0.25 MG TABLET PO SCH (20:46)
[2021-04-30] MEDS: MELATONIN 3 MG TAB PO PRN (21:47)
[2021-05-01] MEDS: LEVOTHYROXINE SODIUM 25 MCG TABLET PO SCH (05:55)
[2021-05-01] MEDS: HEPARIN SOD 5,000 UNIT/0.5 ML VIAL SQ SCH ×3 (05:55→23:06)
[2021-05-01] MEDS ORDERED: SODIUM CHLORIDE 0.9% 1000ML 1,000 ML IV PRN (07:00)
--- NOTE | 2021-05-01 07:26 | Electrocardiogram Report ---
Test Reason : Blood Pressure : / mmHG Vent. Rate : 056 BPM Atrial Rate : 056 BPM P-R Int : 162 ms QRS Dur : 080 ms QT Int : 484 ms P-R-T Axes : 052 027 065 degrees QTc Int : 467 ms Sinus bradycardia Confirmed by Paramjit Guardado ([id number]) on 05/01/2021 7:25:49 AM Referred By: REFERRED SELF Confirmed By:Kanu Guardado
[2021-05-01 07:28] LABS: Basophils # (auto) 0.01 K/uL (0-0.2); Basophils % (auto) 0.1 %; Eosinophils # (auto) 0.03 K/uL (0-0.5); Eosinophils % (auto) 0.4 %; Hematocrit (blood only) 33.4 % (37-47); Hemoglobin 10.6 g/dL (12.0-16.0); Immature Granulocytes # (auto) 0.01 K/uL (0.00-0.02); Immature Granulocytes % (auto) 0.1 %; Lymphocytes # (auto) 1.46 K/uL (1.2-3.4); Lymphocytes % (auto) 20.4 %; Mean Corpuscular Hemoglobin 30.1 pg (25-34); Mean Corpuscular Hgb Conc 31.7 g/dL (32-36); Mean Corpuscular Volume 94.9 fL (80-100); Mean Platelet Volume 9.6 fL (7.4-10.4); Monocytes # (auto) 0.51 K/uL (0.11-0.59); Monocytes % (auto) 7.1 %; Neutrophils # (auto) 5.12 K/uL (1.4-6.5); Neutrophils % (auto) 71.9 %; Platelet Count 185 K/uL (130-400); RDW Coefficient of Variation 14.8 % (11.5-14.5); RDW Standard Deviation 50.1 fL (36.4-46.3); Red Blood Count 3.52 M/uL (4.2-5.4); White Blood Count 7.14 K/uL (4.8-10.8)
[2021-05-01] MEDS: AZELASTINE HCL 0.1% NASAL 200 SPRAYS/27,400 MCG BTL SCH ×2 (08:26→20:20)
[2021-05-01] MEDS: SEVELAMER HCL 800 MG TABLET PO SCH ×3 (08:26→17:06)
[2021-05-01] MEDS: FUROSEMIDE 40 MG TAB PO SCH (08:27)
[2021-05-01] MEDS: FLUTICASONE/VILANTEROL 100/25MCG 14 PUFFS/INHALER INH SCH (08:27)
[2021-05-01] MEDS: SERTRALINE HCL 50 MG TABLET PO SCH (08:27)
[2021-05-01] MEDS: CLOPIDOGREL BISULFATE 75 MG TAB PO SCH (08:27)
[2021-05-01] MEDS: amLODIPine BESYLATE 5 MG TAB PO SCH (08:28)
[2021-05-01] MEDS: hydrALAZINE TAB 50 MG TAB PO SCH ×2 (08:28→20:25)
[2021-05-01] MEDS: METOPROLOL TARTRATE 25 MG TAB PO SCH ×2 (08:28→20:25)
[2021-05-01] MEDS: INSULIN ASPART PER UNIT SC SCH ×4 (08:29→20:22)
[2021-05-01] MEDS: ASPIRIN 81 MG ECTAB PO SCH (08:29)
[2021-05-01] MEDS: CHOLECALCIFEROL 1,000 UNITS 25 MCG TAB PO SCH (08:29)
[2021-05-01] MEDS: HYDROmorphone INJ 0.5 MG/0.5 ML SYR IV PRN ×2 (08:38→20:31)
--- NOTE | 2021-05-01 11:49 | Dialysis Progress Note ---
Date of Service May 01, 2021 Assessment & Plan Admission and Anticipated Discharge Date Admission Date: April 28, 2021 Subjective Subjective A/p 1 ESRD--NO fluid or lytes issues today. HD -- 3hrs and take 2 kilo off on 2k. 2 AMS/Unresponsiveness--Multifactorial Still under investigation. Since her she has not been acting well. med non adherence sec to Cost/Confusion. Previous admission polypharmacy--accidental vs Intentional. S----Seen during Dialysis. tolerating fine. Seems she is back to her baseline status and back to be being super chatty-baseline for her. BP also normal now Physical Exam Constitutional: well developed, well nourished and + acute distress (c/o of CARL) Eyes: EOM intact bilaterally ENMT: Ears: no external ear abnormality Nose: no external nose abnormality Mouth: + dry oral mucous membranes Neck: no nuchal rigidity Respiratory: normal respiratory effort Auscultation: + diminished lung sounds Cardiovascular: RRR, no murmur, no edema Extremities: + AV fistula (+t/b) Gastrointestinal (Abdomen): Inspection/Auscultation: normal bowel sounds Percussion/Palpation: abdomen soft; abdomen nontender Musculoskeletal: Extremities: strength 5/5 throughout Skin: no rashes, warm and dry Neurologic: de paz, fluent speech, no tremor Psychiatric: Orientation: oriented to person and oriented to place Results & Data ([facility]) Vital Signs (Past 12 Hours) Vital Signs Temp Pulse Pulse Resp BP Pulse Ox 05/01/21 07:37 37.0 C 57 L 17 198/68 H 96 05/01/21 07:28 61 05/01/21 03:00 36.5 C 59 L 17 159/66 H 96 05/01/21 00:00 52 L
--- NOTE | 2021-05-01 12:43 | Cardiology Progress Note ---
Date of Service May 01, 2021 Assessment & Plan (1) Hypertensive urgency: (2) Acute headache: (3) Atrial fibrillation: (4) Altered mental status: Plan: Patient admitted for recurrent unresponsive episode. This is 2nd or 3rd episode in a few months, with significant altered mental status. Tox screen pending. Previously thought to be polypharmacy/OD. Cardiac evaluation remains unrevealing. Telemetry without arrhythmia, EKG with sinus bradycardia Plan: Would recommend treating hypertension, increase hydralazine to 50 mg 3 times per day. Patient previously on 3 times daily dosing Admission and Anticipated Discharge Date Admission Date: April 28, 2021 Subjective Patient was seen and examined, chart, medications, telemetry reviewed. Once again no arrhythmias. No significant bradycardia No disorientation or further mental status changes with patient completely oriented on exam today No chest pains or shortness of breath Blood pressure persistently elevated Review of Systems Review of Systems: All systems reviewed & are unremarkable except as noted in Subjective Physical Exam Constitutional: + thin Eyes: PERRL, conjunctivae normal, anicteric sclerae ENMT: external ear and nose normal, oropharynx normal Respiratory: normal respiratory effort Auscultation: + diminished lung sounds; no rales and no wheezes Cardiovascular: Rate/Rhythm: regular rate and regular rhythm Heart Sounds: normal S1, normal S2 and + murmur (II/ systolic murmur LSB) Gastrointestinal (Abdomen): normal bowel sounds, soft, nontender, no hepatosplenomegaly Skin: no rashes, warm and dry Neurologic: PERRL, EOMI, accommodation nl, no face palsy, no dysarthria Psychiatric: A+Ox3, euthymic affect Apperance: + disheveled Results & Data ([facility]) Vital Signs (Past 12 Hours) Vital Signs Temp Pulse Pulse Resp BP Pulse Ox 05/01/21 07:37 37.0 C 57 L 17 198/68 H 96 05/01/21 07:28 61 05/01/21 03:00 36.5 C 59 L 17 159/66 H 96 Laboratory Results Laboratory Results - last 24 hr 04/30/21 04/30/21 04/30/21 14:53 14:54 15:10 WBC RBC Hgb Hct MCV MCH MCHC RDW Std Deviation RDW Coeff of Odilon Plt Count MPV Immature Gran % (Auto) Neut % (Auto) Lymph % (Auto) [place] % (Auto) Eos % (Auto) Baso % (Auto) Neut # (Auto) Lymph # (Auto) [place] # (Auto) Eos # (Auto) Baso # (Auto) Immature Gran # (Auto) POC Glucose 54 L* 60 L* 63 L* 04/30/21 04/30/21 04/30/21 15:26 16:10 20:14 WBC RBC Hgb Hct MCV MCH MCHC RDW Std Deviation RDW Coeff of Odilon Plt Count MPV Immature Gran % (Auto) Neut % (Auto) Lymph % (Auto) [place] % (Auto) Eos % (Auto) Baso % (Auto) Neut # (Auto) Lymph # (Auto) [place] # (Auto) Eos # (Auto) Baso # (Auto) Immature Gran # (Auto) POC Glucose 88 125 H 240 H 05/01/21 05/01/21 06:42 07:14 WBC 7.14 RBC 3.52 L Hgb 10.6 L Hct 33.4 L MCV 94.9 MCH 30.1 MCHC 31.7 L RDW Std Deviation 50.1 H RDW Coeff of Odilon 14.8 H Plt Count 185 MPV 9.6 Immature Gran % (Auto) 0.1 Neut % (Auto) 71.9 Lymph % (Auto) 20.4 [place] % (Auto) 7.1 Eos % (Auto) 0.4 Baso % (Auto) 0.1 Neut # (Auto) 5.12 Lymph # (Auto) 1.46 [place] # (Auto) 0.51 Eos # (Auto) 0.03 Baso # (Auto) 0.01 Immature Gran # (Auto) 0.01 POC Glucose 146 H (1) Acute headache Headache type: unspecified Intractability: not intractable Qualified Code(s): R51.9 - Headache, unspecified (2) Atrial fibrillation Atrial fibrillation type: paroxysmal Qualified Code(s): I48.0 - Paroxysmal atrial fibrillation (3) Altered mental status Altered mental status type: unspecified Qualified Code(s): R41.82 - Altered mental status, unspecified
--- NOTE | 2021-05-01 14:08 | Hospitalist Progress Note ---
Date of Service May 01, 2021 Assessment & Plan (1) Unresponsive episode: Plan: Admitted with unresponsive episode and a fall Has had similar episodes before and is thought to be due to polypharmacy Her medication does not include any narcotics Urine tox screen did not show any narcotics and benzodiazepines She is alert awake and oriented when I examined her She does not have any significant injury from the fall Noted to have seizure spike on EEG-could have initiated the fall She vomited during MRI was partially finished and the finished MRI is unremarkable She has been alert awake and oriented without any focal neurodeficit on examination She will be discharged home tomorrow Seizure disorder Noted to have jerking movement involving the extremities EEG came back positive for seizure spike Appreciate neurology input and recommendation Has been started on intravenous Keppra Will change oral Keppra 500 mg as advised and will have additional dose of Keppra on the day of dialysis We will continue Keppra and get a Keppra level on Sunday She will not be able to drive for about 6 months Severe headache Denies any neurological symptoms and no neck stiffness and/or photophobia No fever and or chills Tylenol is not helping We will try small dose of Dilaudid while in the hospital Headache seems to be improving (2) Atrial fibrillation: Plan: History of atrial fibrillation, CAD status post CABG and on aspirin and Plavix Appreciate cardiology input and recommendation Rate seems to be controlled 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 Heart rate is on the lower side and metoprolol dose has been adjusted (3) Hypertensive urgency: Plan: Blood pressure was noted to be very high at presentation Could be complicating change in mental status No evidence of stroke and/or bleeding in the head Ongoing headache without any neurological symptoms Has been getting intravenous beta-arturo, intravenous hydralazine and oral amlodipine to control blood pressure Appreciate cardiology and nephrology input Blood pressure seems to be controlled now Blood pressure remains on the lower side so will not increase hydralazine for now (4) Fall: Plan: As above (5) End stage renal disease: Plan: Has end-stage renal disease on hemodialysis She missed her dialysis yesterday Appreciate nephrology input and recommendation She will have dialysis today-04/29/2021 She has had dialysis on 05/01/2021 (6) DM2 (diabetes mellitus, type 2): Plan: Continue with SSI Check blood sugar AC at bedtime (7) COPD (chronic obstructive pulmonary disease): Plan: History of COPD without any exacerbation now (8) Restless leg syndrome: Plan: We will continue current medication Plan: DVT prophylaxis-subcu heparin CODE STATUS Full Admission and Anticipated Discharge Date Admission Date: April 28, 2021 Subjective 04/29/2021 The patient was seen and examined in telemetry unit She has been complaining of severe headache without any associated symptoms of nausea no vomiting, dizziness and/or numbness tingling in the extremities No neurodeficit but she does have tremors and abnormal movements involving the upper and to some extent lower extremities Denies any chest pain and/or palpitation 04/30/2021 The patient was seen and examined in telemetry unit Today she is completely a different person She is alert awake and oriented x3 but complains to have severe headache Denies any other symptoms 05/01/2021 The patient was seen and examined in telemetry unit She has been feeling much better but could not tolerate MRI which was partly done Denies any other symptoms except mild headache Review of Systems Review of Systems: All systems reviewed and are unremarkable except as noted below Neurologic: Mild to moderate headache Physical Exam Physical Exam: No acute arthritis in any joint lying in bed with acute discomfort secondary to severe headache Constitutional: average body habitus; not ill appearing ENMT: external ear and nose normal, oropharynx normal Neck: no nuchal rigidity Respiratory: no respiratory distress Auscultation: lungs clear to auscultation bilaterally and + diminished lung sounds; no crackles Cardiovascular: Rate/Rhythm: regular rate, regular rhythm and + bradycardic Heart Sounds: normal S1 and normal S2; no murmur Extremities: no edema Gastrointestinal (Abdomen): Inspection/Auscultation: normal bowel sounds; abdomen not distended Percussion/Palpation: abdomen soft; abdomen nontender Musculoskeletal: No acute arthritis in any joint Neurologic: Alert, awake and oriented x3. Results & Data Results & Data ([facility]) Vital Signs (Past 12 Hours) Vital Signs Temp Pulse Pulse Resp BP BP Pulse Ox 05/01/21 13:40 52 L 85/42 L 05/01/21 13:28 52 L 99/43 L 05/01/21 13:20 51 L 76/35 L 05/01/21 13:00 53 L 101/52 L 05/01/21 12:40 55 L 114/65 05/01/21 12:20 51 L 147/59 H 05/01/21 12:00 52 L 145/60 H 05/01/21 11:40 53 L 131/70 05/01/21 11:20 52 L 149/72 H 05/01/21 11:08 54 L 159/76 H 05/01/21 11:00 36.9 C 56 L 05/01/21 07:37 37.0 C 57 L 17 198/68 H 96 05/01/21 07:28 61 05/01/21 03:00 36.5 C 59 L 17 159/66 H 96 Laboratory Results Short CBC 05/01/21 Range/Units 06:42 WBC 7.14 (4.8-10.8) K/uL Hgb 10.6 L (12.0-16.0) g/dL Hct 33.4 L (37-47) % Plt Count 185 (130-400) K/uL Medications Administered Current Inpatient Medications Acetaminophen (Acetaminophen 500 Mg Tab) 1,000 mg PO Q6H PRN PRN Reason: Headache Stop: 05/29/21 09:45 Last Admin: 04/30/21 16:12 Dose: 1,000 mg Documented by: Albuterol (Albuterol Hfa 8 Gm Inhaler) 2 puffs INH Q4R PRN PRN Reason: Shortness Of Breath Stop: 05/29/21 00:27 Albuterol (Albut/Ipratrop 3mg/0.5mg Neb 3 Ml Vial) 3 ml INH Q4R PRN; Protocol PRN Reason: Shortness Of Breath Stop: 05/29/21 00:27 Amlodipine Besylate (Amlodipine Besylate 5 Mg Tab) 10 mg PO QAM [facility] Stop: 05/29/21 08:59 Last Admin: 05/01/21 08:28 Dose: 10 mg Documented by: Aspirin (Aspirin 81 Mg Ectab) 81 mg PO QAM [facility] Stop: 05/29/21 08:59 Last Admin: 05/01/21 08:29 Dose: 81 mg Documented by: Azelastine HCl (Azelastine Hcl 0.1% Nasal 200 Sprays/27,400 Mcg Btl) 2 sprays NA BID [facility] Stop: 05/29/21 08:59 Last Admin: 05/01/21 08:26 Dose: 2 sprays Documented by: Clopidogrel Bisulfate (Clopidogrel Bisulfate 75 Mg Tab) 75 mg PO DAILY [facility] Stop: 05/29/21 08:59 Last Admin: 05/01/21 08:27 Dose: 75 mg Documented by: Dextrose (Dextrose 50% 50 Ml Syringe) 25 - 50 ml IV UD PRN; Protocol PRN Reason: Hypoglycemia Protocol Stop: 05/30/21 15:00 Epinephrine HCl (Epinephrine Inj 1 Mg/Ml Amp) 0.3 mg IM Q4H PRN PRN Reason: Anaphylaxis Stop: 05/29/21 00:53 Fluticasone Propionate (Fluticasone Propionate Na Spr 16 Gm Btl) 1 sprays NA DAILY PRN PRN Reason: Nasal Congestion Stop: 05/29/21 00:27 Fluticasone/Vilanterol (Fluticasone/Vilanterol 100/25mcg 14 Puffs/Inhaler) 1 puffs INH DAILY [facility] Stop: 05/29/21 08:59 Last Admin: 05/01/21 08:27 Dose: 1 puffs Documented by: Furosemide (Furosemide 40 Mg Tab) 40 mg PO QAM [facility] Stop: 05/29/21 08:59 Last Admin: 05/01/21 08:27 Dose: 40 mg Documented by: Glucagon (Glucagon For Inj 1 Mg Vial) 1 mg SQ UD PRN; Protocol PRN Reason: Hypoglycemia Protocol Stop: 05/30/21 15:00 Glucose (Glucose 10 Tabs/Tube) 4 - 8 tabs PO UD PRN; Protocol PRN Reason: Hypoglycemia Protocol Stop: 05/30/21 15:00 Glucose (Glucose 40% Gel 15 Gm Tube) 15 - 30 gm PO UD PRN; Protocol PRN Reason: Hypoglycemia Protocol Stop: 05/30/21 15:00 Heparin Sodium (Porcine) (Heparin Sod 5,000 Unit/0.5 Ml Vial) 5,000 units SQ Q8 SILVIA Stop: 05/29/21 05:59 Last Admin: 05/01/21 05:55 Dose: 5,000 units Documented by: Hydralazine HCl (Hydralazine Hcl 20 Mg/Ml Vial) 10 mg IV Q4H PRN PRN Reason: HTN uncontrolled by Enalapril Stop: 05/29/21 09:45 Hydralazine HCl (Hydralazine Tab 50 Mg Tab) 50 mg PO TID [facility] Stop: 05/31/21 20:59 Hydromorphone HCl (Hydromorphone Inj 0.5 Mg/0.5 Ml Syr) 0.25 mg IV Q6H PRN PRN Reason: Pain Stop: 05/14/21 09:02 Last Admin: 05/01/21 08:38 Dose: 0.25 mg Documented by: Enalaprilat 0.625 mg/ Syringe 10 mls @ 2 mls/min IV Q4H PRN; Protocol PRN Reason: sbp > 160 Stop: 05/29/21 09:44 Levetiracetam 500 mg/ Sodium (Chloride) 105 mls @ 420 mls/hr IV DAILY@1800 [facility]; Protocol Stop: 05/29/21 17:59 Last Infusion: 04/30/21 18:01 Dose: Infused Documented by: Insulin Aspart (Insulin Aspart Per Unit) 0 units SC ACHS [facility] Stop: 05/29/21 07:29 Last Admin: 05/01/21 11:56 Dose: Not Given Documented by: Levothyroxine Sodium (Levothyroxine Sodium 25 Mcg Tablet) 25 mcg PO DAILYBB [facility] Stop: 05/29/21 06:29 Last Admin: 05/01/21 05:55 Dose: 25 mcg Documented by: Melatonin (Melatonin 3 Mg Tab) 3 mg PO HS PRN PRN Reason: Sleep Stop: 05/30/21 21:22 Last Admin: 04/30/21 21:47 Dose: 3 mg Documented by: Metoprolol Tartrate (Metoprolol Tartrate 25 Mg Tab) 12.5 mg PO BID [facility] Stop: 05/30/21 12:14 Last Admin: 05/01/21 08:28 Dose: 12.5 mg Documented by: Miscellaneous (Carbohydrates For Hypoglycemia ) 15 - 30 gm PO UD PRN PRN Reason: Hypoglycemia Protocol Stop: 05/30/21 15:00 Last Admin: 04/30/21 15:10 Dose: 15 gm Documented by: Montelukast Sodium (Montelukast Sodium 10 Mg Tablet) 10 mg PO HS [facility] Stop: 05/29/21 20:59 Last Admin: 04/30/21 20:45 Dose: 10 mg Documented by: Nitroglycerin (Nitroglycerin Sl 0.4 Mg/Tab Tab) 0.4 mg SL UD PRN PRN Reason: Angina Stop: 05/29/21 00:27 Ondansetron HCl (Ondansetron Inj 2 Mg/Ml 2 Ml Vial) 4 mg IV Q6H PRN PRN Reason: Nausea Stop: 05/29/21 00:27 Last Admin: 04/30/21 14:18 Dose: 4 mg Documented by: Ropinirole HCl (Ropinirole Hcl 0.25 Mg Tablet) 0.5 mg PO HS [facility] Stop: 05/29/21 20:59 Last Admin: 04/30/21 20:46 Dose: 0.5 mg Documented by: Sertraline HCl (Sertraline Hcl 50 Mg Tablet) 150 mg PO QAM [facility] Stop: 05/29/21 08:59 Last Admin: 05/01/21 08:27 Dose: 150 mg Documented by: Sevelamer HCl (Sevelamer Hcl 800 Mg Tablet) 800 mg PO TIDM [facility] Stop: 05/29/21 07:59 Last Admin: 05/01/21 11:56 Dose: Not Given Documented by: Vitamin D (Cholecalciferol 1,000 Units 25 Mcg Tab) 1,000 units PO DAILY [facility] Stop: 05/29/21 08:59 Last Admin: 05/01/21 08:29 Dose: 1,000 units Documented by: (1) Atrial fibrillation Atrial fibrillation type: paroxysmal Qualified Code(s): I48.0 - Paroxysmal atrial fibrillation (2) Fall Encounter type: initial encounter Qualified Code(s): W19.XXXA - Unspecified fall, initial encounter
[2021-05-01] MEDS: levETIRAcetam 500 MG in 0.9 % SODIUM CHLORIDE 100 ML IV SCH (17:06)
[2021-05-01] MEDS: CARBOHYDRATES FOR HYPOGLYCEMIA PO PRN (19:56)
[2021-05-01] MEDS: MONTELUKAST SODIUM 10 MG TABLET PO SCH (20:18)
[2021-05-01] MEDS: rOPINIRole HCL 0.25 MG TABLET PO SCH (20:19)
[2021-05-01] MEDS: MELATONIN 3 MG TAB PO PRN (20:31)
[2021-05-01] MEDS ORDERED: hydrALAZINE TAB 50 MG TAB PO SCH (21:00)
[2021-05-02] MEDS: ONDANSETRON INJ 2 MG/ML 2 ML VIAL IV PRN (03:12)
[2021-05-02 06:06] LABS: BUN Creatinine Ratio 8.4 (10-20); Calcium 8.2 mg/dl (8.5-10.1); Creatinine Clr Calc Pharmacy 11.9 ml/min; Est GFR (African American) 12.3 ml/min; Est GFR (Non-African American) 10.6 ml/min; Potassium 4.2 mmol/L (3.5-5.1)
[2021-05-02] MEDS: LEVOTHYROXINE SODIUM 25 MCG TABLET PO SCH (06:16)
[2021-05-02] MEDS: HEPARIN SOD 5,000 UNIT/0.5 ML VIAL SQ SCH ×3 (06:17→21:27)
[2021-05-02] MEDS: FLUTICASONE/VILANTEROL 100/25MCG 14 PUFFS/INHALER INH SCH (08:15)
[2021-05-02] MEDS: AZELASTINE HCL 0.1% NASAL 200 SPRAYS/27,400 MCG BTL SCH ×2 (08:15→20:17)
[2021-05-02] MEDS: METOPROLOL TARTRATE 25 MG TAB PO SCH ×2 (08:16→20:17)
[2021-05-02] MEDS: hydrALAZINE TAB 50 MG TAB PO SCH ×2 (08:16→20:16)
[2021-05-02] MEDS: FUROSEMIDE 40 MG TAB PO SCH (08:16)
[2021-05-02] MEDS: SERTRALINE HCL 50 MG TABLET PO SCH (08:17)
[2021-05-02] MEDS: CLOPIDOGREL BISULFATE 75 MG TAB PO SCH (08:17)
[2021-05-02] MEDS: ASPIRIN 81 MG ECTAB PO SCH (08:17)
[2021-05-02] MEDS: SEVELAMER HCL 800 MG TABLET PO SCH ×3 (08:17→17:39)
[2021-05-02] MEDS: CHOLECALCIFEROL 1,000 UNITS 25 MCG TAB PO SCH (08:17)
[2021-05-02] MEDS: INSULIN ASPART PER UNIT SC SCH ×4 (08:18→20:25)
[2021-05-02] MEDS: amLODIPine BESYLATE 5 MG TAB PO SCH (08:18)
[2021-05-02] MEDS: HYDROmorphone INJ 0.5 MG/0.5 ML SYR IV PRN ×2 (08:27→15:32)
--- NOTE | 2021-05-02 10:23 | Hospitalist Progress Note ---
Date of Service May 02, 2021 Assessment & Plan (1) Unresponsive episode: Plan: Admitted with unresponsive episode and a fall Has had similar episodes before and is thought to be due to polypharmacy Her medication does not include any narcotics Urine tox screen did not show any narcotics and benzodiazepines She is alert awake and oriented when I examined her She does not have any significant injury from the fall Noted to have seizure spike on EEG-could have initiated the fall She vomited during MRI was partially finished and the finished MRI is unremarkable She has been alert awake and oriented without any focal neurodeficit on examination She will be discharged home tomorrow We will get PT and OT evaluation before discharge Seizure disorder Noted to have jerking movement involving the extremities EEG came back positive for seizure spike Appreciate neurology input and recommendation Has been started on intravenous Keppra Will change oral Keppra 500 mg as advised and will have additional dose of Keppra on the day of dialysis We will continue Keppra and get a Keppra level on Sunday She will not be able to drive for about 6 months Severe headache Denies any neurological symptoms and no neck stiffness and/or photophobia No fever and or chills Tylenol is not helping We will try small dose of Dilaudid while in the hospital Headache seems to be improving (2) Atrial fibrillation: Plan: History of atrial fibrillation, CAD status post CABG and on aspirin and Plavix Appreciate cardiology input and recommendation Rate seems to be controlled 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 Heart rate is on the lower side and metoprolol dose has been adjusted (3) Hypertensive urgency: Plan: Blood pressure was noted to be very high at presentation Could be complicating change in mental status No evidence of stroke and/or bleeding in the head Ongoing headache without any neurological symptoms Has been getting intravenous beta-arturo, intravenous hydralazine and oral amlodipine to control blood pressure Appreciate cardiology and nephrology input Blood pressure seems to be controlled now Blood pressure remains on the lower side so will not increase hydralazine for now Blood pressure remains on the lower side following dialysis (4) Fall: Plan: As above (5) End stage renal disease: Plan: Has end-stage renal disease on hemodialysis She missed her dialysis yesterday Appreciate nephrology input and recommendation She will have dialysis today-04/29/2021 She has had dialysis on 05/01/2021 Will have dialysis tomorrow (6) DM2 (diabetes mellitus, type 2): Plan: Continue with SSI Check blood sugar AC at bedtime (7) COPD (chronic obstructive pulmonary disease): Plan: History of COPD without any exacerbation now (8) Restless leg syndrome: Plan: We will continue current medication Plan: DVT prophylaxis-subcu heparin CODE STATUS Full Admission and Anticipated Discharge Date Admission Date: April 28, 2021 Subjective 04/29/2021 The patient was seen and examined in telemetry unit She has been complaining of severe headache without any associated symptoms of nausea no vomiting, dizziness and/or numbness tingling in the extremities No neurodeficit but she does have tremors and abnormal movements involving the upper and to some extent lower extremities Denies any chest pain and/or palpitation 04/30/2021 The patient was seen and examined in telemetry unit Today she is completely a different person She is alert awake and oriented x3 but complains to have severe headache Denies any other symptoms 05/01/2021 The patient was seen and examined in telemetry unit She has been feeling much better but could not tolerate MRI which was partly done Denies any other symptoms except mild headache 05/02/2021 The patient was seen and examined in telemetry unit She has been feeling much better and the headache has diminished Denies any other symptoms Will be discharged home this afternoon Review of Systems Review of Systems: All systems reviewed and are unremarkable except as noted below Neurologic: Mild to moderate headache Physical Exam Physical Exam: No acute arthritis in any joint lying in bed with acute discomfort secondary to severe headache Constitutional: average body habitus; not ill appearing ENMT: external ear and nose normal, oropharynx normal Neck: no nuchal rigidity Respiratory: no respiratory distress Auscultation: lungs clear to auscultation bilaterally and + diminished lung sounds; no crackles Cardiovascular: Rate/Rhythm: regular rate, regular rhythm and + bradycardic Heart Sounds: normal S1 and normal S2; no murmur Extremities: no edema Gastrointestinal (Abdomen): Inspection/Auscultation: normal bowel sounds; abdomen not distended Percussion/Palpation: abdomen soft; abdomen nontender Musculoskeletal: No acute arthritis in any joint Neurologic: Alert, awake and oriented x3 Results & Data Results & Data ([facility]) Vital Signs (Past 12 Hours) Vital Signs Temp Pulse Pulse Resp BP Pulse Ox 05/02/21 07:31 62 05/02/21 07:16 36.8 C 55 L 18 152/65 H 97 05/02/21 04:15 36.8 C 56 L 18 131/56 L 93 05/02/21 00:00 59 L 05/01/21 23:09 36.9 C 58 L 20 124/56 L 93 Laboratory Results [facility] 05/02/21 05:34 Sodium 138 Potassium 4.2 Chloride 102 Carbon Dioxide 28 BUN 33 H Creatinine 3.94 H D Glucose 171 H Calcium 8.2 L Medications Administered Current Inpatient Medications Acetaminophen (Acetaminophen 500 Mg Tab) 1,000 mg PO Q6H PRN PRN Reason: Headache Stop: 05/29/21 09:45 Last Admin: 04/30/21 16:12 Dose: 1,000 mg Documented by: Albuterol (Albuterol Hfa 8 Gm Inhaler) 2 puffs INH Q4R PRN PRN Reason: Shortness Of Breath Stop: 05/29/21 00:27 Albuterol (Albut/Ipratrop 3mg/0.5mg Neb 3 Ml Vial) 3 ml INH Q4R PRN; Protocol PRN Reason: Shortness Of Breath Stop: 05/29/21 00:27 Amlodipine Besylate (Amlodipine Besylate 5 Mg Tab) 10 mg PO QAM [facility] Stop: 05/29/21 08:59 Last Admin: 05/02/21 08:18 Dose: 10 mg Documented by: Aspirin (Aspirin 81 Mg Ectab) 81 mg PO QAM [facility] Stop: 05/29/21 08:59 Last Admin: 05/02/21 08:17 Dose: 81 mg Documented by: Azelastine HCl (Azelastine Hcl 0.1% Nasal 200 Sprays/27,400 Mcg Btl) 2 sprays NA BID [facility] Stop: 05/29/21 08:59 Last Admin: 05/02/21 08:15 Dose: 2 sprays Documented by: Clopidogrel Bisulfate (Clopidogrel Bisulfate 75 Mg Tab) 75 mg PO DAILY [facility] Stop: 05/29/21 08:59 Last Admin: 05/02/21 08:17 Dose: 75 mg Documented by: Dextrose (Dextrose 50% 50 Ml Syringe) 25 - 50 ml IV UD PRN; Protocol PRN Reason: Hypoglycemia Protocol Stop: 05/30/21 15:00 Epinephrine HCl (Epinephrine Inj 1 Mg/Ml Amp) 0.3 mg IM Q4H PRN PRN Reason: Anaphylaxis Stop: 05/29/21 00:53 Fluticasone Propionate (Fluticasone Propionate Na Spr 16 Gm Btl) 1 sprays NA DAILY PRN PRN Reason: Nasal Congestion Stop: 05/29/21 00:27 Fluticasone/Vilanterol (Fluticasone/Vilanterol 100/25mcg 14 Puffs/Inhaler) 1 puffs INH DAILY [facility] Stop: 05/29/21 08:59 Last Admin: 05/02/21 08:15 Dose: 1 puffs Documented by: Furosemide (Furosemide 40 Mg Tab) 40 mg PO QAM [facility] Stop: 05/29/21 08:59 Last Admin: 05/02/21 08:16 Dose: 40 mg Documented by: Glucagon (Glucagon For Inj 1 Mg Vial) 1 mg SQ UD PRN; Protocol PRN Reason: Hypoglycemia Protocol Stop: 05/30/21 15:00 Glucose (Glucose 10 Tabs/Tube) 4 - 8 tabs PO UD PRN; Protocol PRN Reason: Hypoglycemia Protocol Stop: 05/30/21 15:00 Glucose (Glucose 40% Gel 15 Gm Tube) 15 - 30 gm PO UD PRN; Protocol PRN Reason: Hypoglycemia Protocol Stop: 05/30/21 15:00 Heparin Sodium (Porcine) (Heparin Sod 5,000 Unit/0.5 Ml Vial) 5,000 units SQ Q8 [facility] Stop: 05/29/21 05:59 Last Admin: 05/02/21 06:17 Dose: 5,000 units Documented by: Hydralazine HCl (Hydralazine Hcl 20 Mg/Ml Vial) 10 mg IV Q4H PRN PRN Reason: HTN uncontrolled by Enalapril Stop: 05/29/21 09:45 Hydralazine HCl (Hydralazine Tab 50 Mg Tab) 50 mg PO BID [facility] Stop: 05/31/21 20:59 Last Admin: 05/02/21 08:16 Dose: 50 mg Documented by: Hydromorphone HCl (Hydromorphone Inj 0.5 Mg/0.5 Ml Syr) 0.25 mg IV Q6H PRN PRN Reason: Pain Stop: 05/14/21 09:02 Last Admin: 05/02/21 08:27 Dose: 0.25 mg Documented by: Enalaprilat 0.625 mg/ Syringe 10 mls @ 2 mls/min IV Q4H PRN; Protocol PRN Reason: sbp > 160 Stop: 05/29/21 09:44 Levetiracetam 500 mg/ Sodium (Chloride) 105 mls @ 420 mls/hr IV DAILY@1800 [facility]; Protocol Stop: 05/29/21 17:59 Last Infusion: 05/01/21 17:28 Dose: Infused Documented by: Insulin Aspart (Insulin Aspart Per Unit) 0 units SC ACHS [facility] Stop: 05/29/21 07:29 Last Admin: 05/02/21 08:18 Dose: 2 units Documented by: Levothyroxine Sodium (Levothyroxine Sodium 25 Mcg Tablet) 25 mcg PO DAILYBB [facility] Stop: 05/29/21 06:29 Last Admin: 05/02/21 06:16 Dose: 25 mcg Documented by: Melatonin (Melatonin 3 Mg Tab) 3 mg PO HS PRN PRN Reason: Sleep Stop: 05/30/21 21:22 Last Admin: 05/01/21 20:31 Dose: 3 mg Documented by: Metoprolol Tartrate (Metoprolol Tartrate 25 Mg Tab) 12.5 mg PO BID [facility] Stop: 05/30/21 12:14 Last Admin: 05/02/21 08:16 Dose: 12.5 mg Documented by: Miscellaneous (Carbohydrates For Hypoglycemia ) 15 - 30 gm PO UD PRN PRN Reason: Hypoglycemia Protocol Stop: 05/30/21 15:00 Last Admin: 05/01/21 19:56 Dose: 15 gm Documented by: Montelukast Sodium (Montelukast Sodium 10 Mg Tablet) 10 mg PO [facility] Stop: 05/29/21 20:59 Last Admin: 05/01/21 20:18 Dose: 10 mg Documented by: Nitroglycerin (Nitroglycerin Sl 0.4 Mg/Tab Tab) 0.4 mg SL UD PRN PRN Reason: Angina Stop: 05/29/21 00:27 Ondansetron HCl (Ondansetron Inj 2 Mg/Ml 2 Ml Vial) 4 mg IV Q6H PRN PRN Reason: Nausea Stop: 05/29/21 00:27 Last Admin: 05/02/21 03:12 Dose: 4 mg Documented by: Ropinirole HCl (Ropinirole Hcl 0.25 Mg Tablet) 0.5 mg PO HS [facility] Stop: 05/29/21 20:59 Last Admin: 05/01/21 20:19 Dose: 0.5 mg Documented by: Sertraline HCl (Sertraline Hcl 50 Mg Tablet) 150 mg PO QAM [facility] Stop: 05/29/21 08:59 Last Admin: 05/02/21 08:17 Dose: 150 mg Documented by: Sevelamer HCl (Sevelamer Hcl 800 Mg Tablet) 800 mg PO TIDM [facility] Stop: 05/29/21 07:59 Last Admin: 05/02/21 08:17 Dose: 800 mg Documented by: Vitamin D (Cholecalciferol 1,000 Units 25 Mcg Tab) 1,000 units PO DAILY [facility] Stop: 05/29/21 08:59 Last Admin: 05/02/21 08:17 Dose: 1,000 units Documented by: (1) Atrial fibrillation Atrial fibrillation type: paroxysmal Qualified Code(s): I48.0 - Paroxysmal atrial fibrillation (2) Fall Encounter type: initial encounter Qualified Code(s): W19.XXXA - Unspecified fall, initial encounter
[2021-05-02] MEDS: ACETAMINOPHEN 500 MG TAB PO PRN (13:43)
[2021-05-02] MEDS: levETIRAcetam 500 MG in 0.9 % SODIUM CHLORIDE 100 ML IV SCH (17:39)
[2021-05-02] MEDS ORDERED: LOPERAMIDE HCL 2 MG CAP PO STA (20:07)
[2021-05-02] MEDS: MONTELUKAST SODIUM 10 MG TABLET PO SCH (20:16)
[2021-05-02] MEDS: rOPINIRole HCL 0.25 MG TABLET PO SCH (20:21)
[2021-05-02] MEDS: MELATONIN 3 MG TAB PO PRN (21:26)
[2021-05-03] MEDS: HEPARIN SOD 5,000 UNIT/0.5 ML VIAL SQ SCH ×3 (05:12→21:31)
[2021-05-03] MEDS: LEVOTHYROXINE SODIUM 25 MCG TABLET PO SCH (05:12)
[2021-05-03] MEDS: HYDROmorphone INJ 0.5 MG/0.5 ML SYR IV PRN ×3 (05:14→18:08)
[2021-05-03] MEDS: INSULIN ASPART PER UNIT SC SCH ×4 (07:51→20:40)
[2021-05-03] MEDS: SEVELAMER HCL 800 MG TABLET PO SCH ×3 (07:52→18:09)
[2021-05-03] MEDS: CHOLECALCIFEROL 1,000 UNITS 25 MCG TAB PO SCH (07:54)
[2021-05-03] MEDS: hydrALAZINE TAB 50 MG TAB PO SCH ×2 (07:54→20:26)
[2021-05-03] MEDS: METOPROLOL TARTRATE 25 MG TAB PO SCH ×2 (07:59→20:26)
[2021-05-03] MEDS: ASPIRIN 81 MG ECTAB PO SCH (07:59)
[2021-05-03] MEDS: amLODIPine BESYLATE 5 MG TAB PO SCH (08:00)
[2021-05-03] MEDS: CLOPIDOGREL BISULFATE 75 MG TAB PO SCH (08:00)
[2021-05-03] MEDS: SERTRALINE HCL 50 MG TABLET PO SCH (08:01)
[2021-05-03] MEDS: FUROSEMIDE 40 MG TAB PO SCH (08:01)
[2021-05-03] MEDS: FLUTICASONE/VILANTEROL 100/25MCG 14 PUFFS/INHALER INH SCH (08:02)
[2021-05-03] MEDS: AZELASTINE HCL 0.1% NASAL 200 SPRAYS/27,400 MCG BTL SCH ×2 (08:02→20:27)
--- NOTE | 2021-05-03 09:39 | Nephrology Progress Note ---
Date of Service May 03, 2021 Assessment & Plan Admission and Anticipated Discharge Date Admission Date: April 28, 2021 Subjective Subjective Subjective A/p 1 ESRD--NO fluid or lytes issues today. HD -- 3hrs and take 2 kilo off on 2k. Stable for discharge but need to find safe/correct Placement 2 AMS/Unresponsiveness--Multifactorial but now back to baseline. Since her she has not been acting well. med non adherence sec to Cost/Confusion. Previous admission polypharmacy--accidental vs Intentional. S----C/o headache today. Seems she is back to her baseline status. BP also nor mal now Physical Exam Constitutional: well developed, well nourished and + acute distress (c/o of CARL) Eyes: EOM intact bilaterally ENMT: Ears: no external ear abnormality Nose: no external nose abnormality Mouth: + dry oral mucous membranes Neck: no nuchal rigidity Respiratory: normal respiratory effort Auscultation: + diminished lung sounds Cardiovascular: RRR, no murmur, no edema Extremities: + AV fistula (+t/b) Gastrointestinal (Abdomen): Inspection/Auscultation: normal bowel sounds Percussion/Palpation: abdomen soft; abdomen nontender Musculoskeletal: Extremities: strength 5/5 throughout Skin: no rashes, warm and dry Neurologic: de paz, fluent speech, no tremor Psychiatric: Orientation: oriented to person and oriented to place Results & Data ([facility]) Vital Signs (Past 12 Hours) Vital Signs Temp Pulse Pulse Resp BP BP Pulse Ox 05/03/21 08:16 36.5 C 84 18 151/71 H 05/03/21 08:03 162/62 H 05/03/21 07:00 53 L 05/03/21 02:56 36.6 C 50 L 16 129/47 L 96 05/02/21 22:27 37.1 C 63 16 119/51 L 92
[2021-05-03] MEDS ORDERED: SODIUM CHLORIDE 0.9% 1000ML 1,000 ML IV PRN (09:44)
[2021-05-03] MEDS: ONDANSETRON INJ 2 MG/ML 2 ML VIAL IV PRN (10:59)
--- NOTE | 2021-05-03 11:04 | Psychiatric Consultation ---
Date of Consultation May 03, 2021 Impression / Recommendations Impression This is a 71 yo with a history of depression, anxiety admitted medically. Diagnostically consistent with adjustment disorder with mixed anxiety and depressed mood in the context of financial stressors and ongoing grief from the of her son and within the last year. Acute risk of self-harm is low given denial of SI. They are not interested in nor do they meet criteria for inpatient psychiatric hospitalization at this time. Therapy and additional support, particularly in regard to her finances, is going to be the most helpful intervention for her mood. She has been referred for psychology through [facility] but is currently within the ten day waiting period that occurs with this process. Would continue sertraline at 150mg qd for now and could be increased to 200mg in the outpatient setting if mood does not improve with therapy. Could consider mirtazapine at bedtime if nephrology feels this would be safe given her ESRD. -Following up on therapy referral, she has been referred for [facility] psychology services -Continue with sertraline 150mg qd, agree with discontinuing buspar -Consider mirtazapine 7.5 mg qhs for anxiety and insomnia though could worsen her restless leg symptoms -Encouragement involvement of inpatient and outpatient case management/social work services to help her navigate resources for financial stressors (1) Adjustment disorder with mixed anxiety and depressed mood: see impression Risk Factors Assessment Do You Have Access To A Gun?: No Health Problems: Yes Mental Health Diagnoses: Yes Substance Use Disorders: No Previous Attempt: No Family History of Suicide: Yes Previous Psychiatric Hospitalization: Yes Hopelessness: No Protective Factors Assessment Stable Relationships: Yes Supportive Family: Yes Good Rapport with Provider: Yes Psych History Identifying Data 71 yo woman with a history of depression, anxiety, complicated bereavement, multiple medical conditions including ESRD on dialysis, CAD, DM II, and CHF who presented for medical admission after being found with AMS and episode of unresponsiveness. Psychiatry was consulted for depression. Chief Complaint "I have a lot of stressors". History of Present Illness Mimi describes worsening mood and anxiety in the context of worsening financial stressors since her 's in January 2021. She describes that it's been a struggle to get his social security money and this is causing significant financial strain including eviction from her home and being unable to pay her bills like for her car. She also reports worsening mood due to "migraines" which she reports have started since her episode of unresponsiveness which she attributes to possibly having hit her head while falling and now causing recurrent headaches. She wonders if she had a seizure and worries she may not be able to drive and may lose her independence. She isn't sure how helpful the zoloft has been reporting that a provider in her PCP's office recently increased the dose from 150mg qd to 200mg qd however review of recent outpatient pharmacy scripts shows current script as 150mg daily. She doesn't find the buspar helpful. She denies any side effects from zoloft. She adamantly denies SI. Scored 6 on PHQ-9 with highest score for difficulty with sleep and low appetite. She scored 0 on Q9. She would like to start outpatient therapy and have additional supports to help with financial barriers. She is interested in other medications to help with sleep as she has tried melatonin and found this to be non-beneficial. Past Psychiatric History Previous Psych History: has seen psychiatrists in the past for depression and anxiety Outpatient Services: none currently, in past saw Dr. Win through [facility], and then Dr. Young through [facility]; got referred for Ashlee Galindo through [facility] for therapy but hasn't heard back from their office yet Previous Psych Admissions: many years ago at [facility] and [facility] Do You Have Access To A Gun?: No History of Previous Suicide Attempt: No Past Medication Trials: reportedly has tried remeron before, tried buspar 5mg qd Allergies Allergy/AdvReac Type Severity Reaction Status Date / Time bee venom protein (honey bee) Allergy Intermediate MOUTH Verified 04/28/21 19:03 SWELLING prednisone Allergy Intermediate SWELLING Verified 04/28/21 19:03 OG HANDS, ITCHING, RASH tomato Allergy Intermediate Hives Verified 04/28/21 19:03 Penicillins Allergy Mild RASH Verified 04/28/21 19:03 rosuvastatin Allergy Mild SEVERE H/A Verified 04/28/21 19:03 trazodone AdvReac Severe Confusion Verified 04/28/21 19:03 Bqetsva-KUA-EzS Reductase AdvReac Mild EFFECTED Verified 04/28/21 19:03 Inhibitor LIVER [Jlvxgzc-Evz-Tuf Reductase STUDIES Inhibitor] Home Medications Medication Instructions Recorded Confirmed Type aspirin 81 mg tablet,delayed 81 mg PO QAM 02/18/18 04/28/21 History release (Aspirin Low Dose) fluticasone propionate 50 1 spray INTRANASAL DAILY PRN 02/18/18 04/28/21 History mcg/actuation nasal spray,suspension (Flonase Allergy Relief) levothyroxine 25 mcg tablet 25 mcg PO QAM 02/18/18 04/28/21 History montelukast 10 mg tablet 10 mg PO HS 02/18/18 04/28/21 History (Singulair) sertraline 100 mg tablet (Zoloft) 150 mg PO QAM 02/18/18 04/28/21 History sevelamer carbonate 800 mg tablet 800 mg PO TIDM 03/26/19 04/28/21 History (Renvela) amlodipine 10 mg tablet (Norvasc) 10 mg PO QAM 03/23/20 04/28/21 History linagliptin 5 mg tablet (Tradjenta) 5 mg PO QAM 03/23/20 04/28/21 History nitroglycerin 0.4 mg sublingual 0.4 mg SUBLINGUAL UD PRN 03/23/20 04/28/21 History tablet (Nitrostat) furosemide 40 mg tablet 40 mg PO QAM 01/07/21 04/28/21 History ammonium lactate 12 % topical cream 1 applic TOPICAL DAILY PRN 01/25/21 04/28/21 History buspirone 5 mg tablet 5 mg PO BID 01/25/21 04/28/21 History cholecalciferol (vitamin D3) 25 25 mcg PO DAILY 01/25/21 04/28/21 History mcg (1,000 unit) capsule (Vitamin D3) epinephrine 0.3 mg/0.3 mL 0.3 mg IM Q4H PRN 01/25/21 04/28/21 History injection, auto-injector ipratropium 0.5 mg-albuterol 3 mg 3 ml INHALATION Q4H PRN 01/25/21 04/28/21 History (2.5 mg base)/3 mL nebulization soln ondansetron HCl 8 mg tablet 8 mg PO TID PRN 01/25/21 04/28/21 History metoprolol tartrate 25 mg tablet 25 mg PO BID #60 tab 02/01/21 04/28/21 Rx albuterol sulfate 90 mcg/actuation 2 inh INHALATION Q4H PRN 04/08/21 04/28/21 History aerosol inhaler azelastine 137 mcg (0.1 %) nasal 2 spray INTRANASAL BID 04/08/21 04/28/21 History spray aerosol clopidogrel 75 mg tablet 75 mg PO DAILY 04/08/21 04/28/21 History fluticasone furoate 100 1 inh INHALATION DAILY 04/08/21 04/28/21 History mcg-vilanterol 25 mcg/dose inhalation powder (Breo Ellipta) loperamide 2 mg capsule 2 mg PO DAILY 04/08/21 04/28/21 History melatonin 3 mg tablet 3 mg PO HS #0 04/08/21 04/28/21 History ropinirole 0.25 mg tablet 0.5 mg PO HS 04/08/21 04/28/21 History hydralazine 25 mg tablet 50 mg PO BID #0 tab 04/09/21 04/28/21 Rx diphenoxylate-atropine 2.5 1 tab PO DAILY PRN 04/24/21 04/28/21 History mg-0.025 mg tablet (Lomotil) loratadine 10 mg tablet 5 mg PO DAILY 04/24/21 04/28/21 History azithromycin 250 mg tablet 250 mg PO UD 04/28/21 04/28/21 History Family History some type of psychiatric condition in her mother (she's unsure what diagnosis); father, brother, sister w/ alcohol use disorder. father possibly by suicide Substance Abuse History hx misuse of non-prescribed opioids Personal History Living Arrangements: Home (trailer near her son ) Born In: [place], [place] Highest Grade Completed: High School Graduate Employment Status: Retired Marital Status: Beliefs That Will Affect Care: None Patient History Medical History Anemia Anxiety Asthma Uses albuterol daily. Atrial fibrillation FOLLOWED BY DR. GLEN RIVAS fistula Depression Diabetes mellitus, type 2 oral med End stage renal disease receiving hemodiaylsis Sunday//Saturdays in [place]. Follows Dr. Gonzales ([place], [place]). Endometriosis stage 4 GERD (gastroesophageal reflux disease) Hyperlipidemia Hypertension no medications currently - experiencing hypotension Hypothyroidism Kidney failure STAGE 4 NO DIALYSIS Migraine Myocardial Infarction 2007 Osteoarthritis Stroke X 2 2013 Surgical History History of abdominal surgery UMBILICAL MESH REMOVED (NECROTIC) History of adenoidectomy History of appendectomy History of martha hole surgery 2014 AFTER CVA TO "REMOVED FLUID" History of cardiac cath 2007 AT [facility] History of cataract surgery RT/LEFT History of section X 3 History of cholecystectomy History of colonoscopy History of coronary artery bypass graft 2008 3 [facility] AT [facility] History of esophagogastroduodenoscopy (EGD) History of herniorrhaphy X 3 REPAIRS History of surgery LEFT FOOT/ANKLE FX REPAIR S/P FALL (HARDWARE) History of tonsillectomy History of tooth extraction History of total abdominal hysterectomy and bilateral salpingo-oophorectomy History of total knee replacement LEFT Hx of hand surgery LEFT HAND SURGERY "TOOK BONES OUT" S/P arteriovenous (AV) fistula creation Left arm S/P panniculectomy Family History Brother Family history of diabetes mellitus Coronary heart disease Mother Family history of diabetes mellitus Other No family history of adverse response to anesthesia Social History Smoking Status: Unknown if ever smoked Tobacco Type: Cigarettes Cigarettes Per Day: 1; Second Hand Exposure: Yes; Hx Substance Use: Yes (PER H&P) Substance Use Type Other:: unable to respond Preferred Language: Bengali Communication Ability: Unable Visual Impairment: No 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 Required: No Beliefs That Will Affect Care: None marital status: Single Current Living Situation: Alone How many Children do You have: 3 Assistive Devices: Glasses and Walker Physical Exam Psychiatric: Orientation: alert Apperance: appropriately dressed and appropriately groomed Eye Contact: good eye contact Motor Behavior: no abnormal motor movements Speech: normal rate/rhythm/volume of speech Affect: euthymic affect Mood: + depressed mood and + anxious mood Thought Process: goal directed thought process Thought Content: reality based without delusions Suicidal Thoughts: denies suicidal thoughts Homicidal Thoughts: denies homicidal thoughts Hallucinations: no auditory hallucinations and no visual hallucinations Cognition: recent memory grossly intact, remote memory grossly intact, attention grossly intact and language grossly intact Estimated Intelligence: consistent with education level Insight: + fair insight Judgement: + fair judgement Vital Signs (Past 24 Hours): Last Vital Signs Temp 36.5 C 05/03/21 08:16 Pulse 84 05/03/21 08:16 Resp 18 01/25/22 08:16 BP 151/71 H 05/03/21 08:16 Pulse Ox 96 05/03/21 02:56 Review of Systems All systems reviewed & are unremarkable except as noted in HPI & below Results & Data (PSY) Laboratory Results Na+ largely wnl since admission (though on dialysis) Diagnostic Findings EKG QTC wnl Medications Administered Acetaminophen (Acetaminophen 500 Mg Tab) 1,000 mg PO Q6H PRN PRN Reason: Headache Stop: 05/29/21 09:45 Last Admin: 05/02/21 13:43 Dose: 1,000 mg Documented by: [id number] Admin: 04/30/21 16:12 Dose: 1,000 mg Documented by: [id number] Admin: 04/30/21 10:09 Dose: 1,000 mg Documented by: [id number] Admin: 04/30/21 00:16 Dose: 1,000 mg Documented by: [id number] Admin: 04/29/21 13:40 Dose: 1,000 mg Documented by: [id number] Amlodipine Besylate ([facility]ipine Besylate 5 Mg Tab) [facility] Stop: 05/29/21 08:59 Last Admin: 05/03/21 08:00 Dose: 10 mg Documented by: [id number] Admin: 05/02/21 08:18 Dose: 10 mg Documented by: [id number] Admin: 05/01/21 08:28 Dose: 10 mg Documented by: [id number] Admin: 04/30/21 08:17 Dose: 10 mg Documented by: [id number] Admin: 04/29/21 07:58 Dose: 10 mg Documented by: [id number] Aspirin (Aspirin 81 Mg Ectab) [facility] Stop: 05/29/21 08:59 Last Admin: 05/03/21 07:59 Dose: 81 mg Documented by: [id number] Admin: 05/02/21 08:17 Dose: 81 mg Documented by: [id number] Admin: 05/01/21 08:29 Dose: 81 mg Documented by: [id number] Admin: 04/30/21 08:16 Dose: 81 mg Documented by: [id number] Admin: 04/29/21 07:57 Dose: 81 mg Documented by: [id number] Azelastine HCl (Azelastine Hcl 0.1% Nasal 200 Sprays/27,400 Mcg Btl) 2 sprays NA BID [facility] Stop: 05/29/21 08:59 Last Admin: 05/03/21 08:02 Dose: 2 sprays Documented by: [id number] Admin: 05/02/21 20:17 Dose: 2 sprays Documented by: [id number] Admin: 05/02/21 08:15 Dose: 2 sprays Documented by: [id number] Admin: 05/01/21 20:20 Dose: 2 sprays Documented by: [id number] Admin: 05/01/21 08:26 Dose: 2 sprays Documented by: [id number] Admin: 04/30/21 20:41 Dose: 2 sprays Documented by: [id number] Admin: 04/30/21 08:16 Dose: 2 sprays Documented by: [id number] Admin: 04/29/21 20:38 Dose: 2 sprays Documented by: [id number] Admin: 04/29/21 07:56 Dose: 2 sprays Documented by: [id number] Clopidogrel Bisulfate (Clopidogrel Bisulfate 75 Mg Tab) 75 mg PO DAILY [facility] Stop: 05/29/21 08:59 Last Admin: 05/03/21 08:00 Dose: 75 mg Documented by: [id number] Admin: 05/02/21 08:17 Dose: 75 mg Documented by: [id number] Admin: 05/01/21 08:27 Dose: 75 mg Documented by: [id number] Admin: 04/30/21 08:17 Dose: 75 mg Documented by: [id number] Admin: 04/29/21 07:57 Dose: 75 mg Documented by: [id number] Fluticasone/Vilanterol (Fluticasone/Vilanterol 100/25mcg 14 Puffs/Inhaler) 1 puffs INH DAILY [facility] Stop: 05/29/21 08:59 Last Admin: 05/03/21 08:02 Dose: 1 puffs Documented by: [id number] Admin: 05/02/21 08:15 Dose: 1 puffs Documented by: [id number] Admin: 05/01/21 08:27 Dose: 1 puffs Documented by: [id number] Admin: 04/30/21 08:18 Dose: 1 puffs Documented by: [id number] Admin: 04/29/21 07:59 Dose: 1 puffs Documented by: [id number] Furosemide (Furosemide 40 Mg Tab) 40 mg PO QAM [facility] Stop: 05/29/21 08:59 Last Admin: 05/03/21 08:01 Dose: 40 mg Documented by: [id number] Admin: 05/02/21 08:16 Dose: 40 mg Documented by: [id number] Admin: 05/01/21 08:27 Dose: 40 mg Documented by: [id number] Admin: 04/30/21 08:16 Dose: 40 mg Documented by: [id number] Admin: 04/29/21 07:57 Dose: 40 mg Documented by: [id number] Heparin Sodium (Porcine) (Heparin Sod 5,000 Unit/0.5 Ml Vial) 5,000 units SQ Q8 [facility] Stop: 05/29/21 05:59 Last Admin: 05/03/21 05:12 Dose: 5,000 units Documented by: [id number] Admin: 05/02/21 21:27 Dose: 5,000 units Documented by: [id number] Admin: 05/02/21 14:39 Dose: Not Given Documented by: [id number] Admin: 05/02/21 06:17 Dose: 5,000 units Documented by: [id number] Admin: 05/01/21 23:06 Dose: 5,000 units Documented by: [id number] Admin: 05/01/21 14:27 Dose: Not Given Documented by: [id number] Admin: 05/01/21 05:55 Dose: 5,000 units Documented by: [id number] Admin: 04/30/21 21:07 Dose: 5,000 units Documented by: [id number] Admin: 04/30/21 14:18 Dose: 5,000 units Documented by: [id number] Admin: 04/30/21 06:01 Dose: 5,000 units Documented by: [id number] Admin: 04/29/21 20:56 Dose: 5,000 units Documented by: [id number] Admin: 04/29/21 13:41 Dose: 5,000 units Documented by: [id number] Admin: 04/29/21 06:30 Dose: 5,000 units Documented by: [id number] Hydralazine HCl (Hydralazine Tab 50 Mg Tab) 50 mg PO BID [facility] Stop: 05/31/21 20:59 Last Admin: 05/03/21 07:54 Dose: 50 mg Documented by: [id number] Admin: 05/02/21 20:16 Dose: 50 mg Documented by: [id number] Admin: 05/02/21 08:16 Dose: 50 mg Documented by: [id number] Admin: 05/01/21 20:25 Dose: 50 mg Documented by: [id number] Hydromorphone HCl (Hydromorphone Inj 0.5 Mg/0.5 Ml Syr) 0.25 mg IV Q6H PRN PRN Reason: Pain Stop: 05/14/21 09:02 Last Admin: 05/03/21 05:14 Dose: 0.25 mg Documented by: [id number] Admin: 05/02/21 15:32 Dose: 0.25 mg Documented by: [id number] Admin: 05/02/21 08:27 Dose: 0.25 mg Documented by: [id number] Admin: 05/01/21 20:31 Dose: 0.25 mg Documented by: [id number] Admin: 05/01/21 08:38 Dose: 0.25 mg Documented by: [id number] Admin: 04/30/21 20:42 Dose: 0.25 mg Documented by: [id number] Admin: 04/30/21 11:20 Dose: 0.25 mg Documented by: [id number] Levetiracetam 500 mg/ Sodium (Chloride) 105 mls @ 420 mls/hr IV DAILY@1800 [facility]; Protocol Stop: 05/29/21 17:59 Last Infusion: 05/02/21 18:48 Dose: 0 mls/hr Documented by: [id number] Admin: 05/02/21 17:39 Dose: 420 mls/hr Documented by: [id number] Infusion: 05/01/21 17:28 Dose: 0 mls/hr Documented by: [id number] Admin: 05/01/21 17:06 Dose: 420 mls/hr Documented by: [id number] Infusion: 04/30/21 18:01 Dose: 0 mls/hr Documented by: [id number] Admin: 04/30/21 17:34 Dose: 420 mls/hr Documented by: [id number] Infusion: 04/29/21 19:28 Dose: 0 mls/hr Documented by: [id number] Admin: 04/29/21 18:34 Dose: 420 mls/hr Documented by: [id number] Insulin Aspart (Insulin Aspart Per Unit) 0 units SC ACHS [facility] Stop: 05/29/21 07:29 Last Admin: 05/03/21 07:51 Dose: 2 units Documented by: [id number] Cosigned by: [id number] Admin: 05/02/21 20:25 Dose: 2 units Documented by: [id number] Cosigned by: [id number] Admin: 05/02/21 17:41 Dose: Not Given Documented by: [id number] Admin: 05/02/21 11:53 Dose: Not Given Documented by: [id number] Admin: 05/02/21 08:18 Dose: 2 units Documented by: [id number] Cosigned by: [id number] Admin: 05/01/21 20:22 Dose: Not Given Documented by: [id number] Cosigned by: [id number] Admin: 05/01/21 17:21 Dose: 5 units Documented by: [id number] Cosigned by: [id number] Admin: 05/01/21 11:56 Dose: Not Given Documented by: [id number] Cosigned by: [id number] Admin: 05/01/21 08:29 Dose: 4 units Documented by: [id number] Cosigned by: [id number] Admin: 04/30/21 21:02 Dose: 6 units Documented by: [id number] Cosigned by: [id number] Admin: 04/30/21 17:32 Dose: 2 units Documented by: [id number] Cosigned by: [id number] Admin: 04/30/21 12:06 Dose: 10 units Documented by: [id number] Cosigned by: [id number] Admin: 04/30/21 08:17 Dose: Not Given Documented by: [id number] Admin: 04/29/21 20:39 Dose: Not Given Documented by: [id number] Admin: 04/29/21 18:33 Dose: Not Given Documented by: [id number] Admin: 04/29/21 12:16 Dose: Not Given Documented by: [id number] Admin: 04/29/21 08:15 Dose: Not Given Documented by: [id number] Levothyroxine Sodium (Levothyroxine Sodium 25 Mcg Tablet) 25 mcg PO DAILYBB [facility] Stop: 05/29/21 06:29 Last Admin: 05/03/21 05:12 Dose: 25 mcg Documented by: [id number] Admin: 05/02/21 06:16 Dose: 25 mcg Documented by: [id number] Admin: 05/01/21 05:55 Dose: 25 mcg Documented by: [id number] Admin: 04/30/21 06:00 Dose: 25 mcg Documented by: [id number] Admin: 04/29/21 06:30 Dose: 25 mcg Documented by: [id number] Melatonin (Melatonin 3 Mg Tab) 3 mg PO HS PRN PRN Reason: Sleep Stop: 05/30/21 21:22 Last Admin: 05/02/21 21:26 Dose: 3 mg Documented by: [id number] Admin: 05/01/21 20:31 Dose: 3 mg Documented by: [id number] Admin: 04/30/21 21:47 Dose: 3 mg Documented by: [id number] Metoprolol Tartrate (Metoprolol Tartrate 25 Mg Tab) 12.5 mg PO BID [facility] Stop: 05/30/21 12:14 Last Admin: 05/03/21 07:59 Dose: 12.5 mg Documented by: [id number] Admin: 05/02/21 20:17 Dose: 12.5 mg Documented by: [id number] Admin: 05/02/21 08:16 Dose: 12.5 mg Documented by: [id number] Admin: 05/01/21 20:25 Dose: 12.5 mg Documented by: [id number] Admin: 05/01/21 08:28 Dose: 12.5 mg Documented by: [id number] Admin: 04/30/21 21:07 Dose: Not Given Documented by: [id number] Admin: 04/30/21 14:18 Dose: 12.5 mg Documented by: [id number] Miscellaneous (Carbohydrates For Hypoglycemia ) 15 - 30 gm PO UD PRN PRN Reason: Hypoglycemia Protocol Stop: 05/30/21 15:00 Last Admin: 05/01/21 19:56 Dose: 15 gm Documented by: [id number] Admin: 04/30/21 15:10 Dose: 15 gm Documented by: [id number] Admin: 04/30/21 14:54 Dose: 15 gm Documented by: [id number] Montelukast Sodium (Montelukast Sodium 10 Mg Tablet) 10 mg PO HS [facility] Stop: 05/29/21 20:59 Last Admin: 05/02/21 20:16 Dose: 10 mg Documented by: [id number] Admin: 05/01/21 20:18 Dose: 10 mg Documented by: [id number] Admin: 04/30/21 20:45 Dose: 10 mg Documented by: [id number] Admin: 04/29/21 20:37 Dose: 10 mg Documented by: [id number] Ondansetron HCl (Ondansetron Inj 2 Mg/Ml 2 Ml Vial) 4 mg IV Q6H PRN PRN Reason: Nausea Stop: 05/29/21 00:27 Last Admin: 05/03/21 10:59 Dose: 4 mg Documented by: [id number] Admin: 05/02/21 03:12 Dose: 4 mg Documented by: [id number] Admin: 04/30/21 14:18 Dose: 4 mg Documented by: [id number] Ropinirole HCl (Ropinirole Hcl 0.25 Mg Tablet) 0.5 mg PO HS [facility] Stop: 05/29/21 20:59 Last Admin: 05/02/21 20:21 Dose: 0.5 mg Documented by: [id number] Admin: 05/01/21 20:19 Dose: 0.5 mg Documented by: [id number] Admin: 04/30/21 20:46 Dose: 0.5 mg Documented by: [id number] Admin: 04/29/21 17:36 Dose: 0.5 mg Documented by: [id number] Sertraline HCl (Sertraline Hcl 50 Mg Tablet) 150 mg PO QAM [facility] Stop: 05/29/21 08:59 Last Admin: 05/03/21 08:01 Dose: 150 mg Documented by: [id number] Admin: 05/02/21 08:17 Dose: 150 mg Documented by: [id number] Admin: 05/01/21 08:27 Dose: 150 mg Documented by: [id number] Admin: 04/30/21 08:16 Dose: 150 mg Documented by: [id number] Admin: 04/29/21 07:56 Dose: 150 mg Documented by: [id number] Sevelamer HCl (Sevelamer Hcl 800 Mg Tablet) 800 mg PO TIDM [facility] Stop: 05/29/21 07:59 Last Admin: 05/03/21 07:52 Dose: 800 mg Documented by: [id number] Admin: 05/02/21 17:39 Dose: 800 mg Documented by: [id number] Admin: 05/02/21 11:51 Dose: 800 mg Documented by: [id number] Admin: 05/02/21 08:17 Dose: 800 mg Documented by: [id number] Admin: 05/01/21 17:06 Dose: 800 mg Documented by: [id number] Admin: 05/01/21 11:56 Dose: Not Given Documented by: [id number] Admin: 05/01/21 08:26 Dose: 800 mg Documented by: [id number] Admin: 04/30/21 17:33 Dose: 800 mg Documented by: [id number] Admin: 04/30/21 12:09 Dose: 800 mg Documented by: [id number] Admin: 04/30/21 08:15 Dose: 800 mg Documented by: [id number] Admin: 04/29/21 18:35 Dose: Not Given Documented by: [id number] Admin: 04/29/21 13:22 Dose: Not Given Documented by: [id number] Admin: 04/29/21 07:58 Dose: 800 mg Documented by: [id number] Vitamin D (Cholecalciferol 1,000 Units 25 Mcg Tab) 1,000 units PO DAILY [facility] Stop: 05/29/21 08:59 Last Admin: 05/03/21 07:54 Dose: 1,000 units Documented by: [id number] Admin: 05/02/21 08:17 Dose: 1,000 units Documented by: [id number] Admin: 05/01/21 08:29 Dose: 1,000 units Documented by: [id number] Admin: 04/30/21 08:16 Dose: 1,000 units Documented by: [id number] Admin: 04/29/21 07:57 Dose: 1,000 units Documented by: [id number] Coding Level of Care Code 00348 Inpt Consult Level 3 Diagnoses Adjustment disorder with mixed anxiety and depressed mood F43.23
[2021-05-03] MEDS: CARBOHYDRATES FOR HYPOGLYCEMIA PO PRN (13:55)
--- NOTE | 2021-05-03 17:47 | Hospitalist Progress Note ---
Date of Service May 03, 2021 Assessment & Plan (1) Unresponsive episode: Plan: Admitted with unresponsive episode and a fall Has had similar episodes before and is thought to be due to polypharmacy Her medication does not include any narcotics Urine tox screen did not show any narcotics and benzodiazepines She is alert awake and oriented when I examined her She does not have any significant injury from the fall Noted to have seizure spike on EEG-could have initiated the fall She vomited during MRI was partially finished and the finished MRI is unremarkable She has been alert awake and oriented without any focal neurodeficit on examination PT and OT has been requested and is pending She may need placement Severe attack of anxiety She was noted to be very anxious and started to cry yesterday when she was told that she will be going home Appreciate psychiatrist input and recommendation Medications have been adjusted correctional case manager is looking into the situation of her home condition She may need placement Seizure disorder Noted to have jerking movement involving the extremities EEG came back positive for seizure spike Appreciate neurology input and recommendation Has been started on intravenous Keppra Will change oral Keppra 500 mg as advised and will have additional dose of Keppra on the day of dialysis We will continue Keppra and get a Keppra level on Sunday She will not be able to drive for about 6 months She will be given Keppra 500 mg once daily in the morning and and additional dose of 500 mg after each dialysis Severe headache Denies any neurological symptoms and no neck stiffness and/or photophobia No fever and or chills Tylenol is not helping We will try small dose of Dilaudid while in the hospital Headache seems to be improving (2) Atrial fibrillation: Plan: History of atrial fibrillation, CAD status post CABG and on aspirin and Plavix Appreciate cardiology input and recommendation Rate seems to be controlled Medications have been adjusted by the biztalk architect Heart rate is on the lower side and metoprolol dose has been adjusted (3) Hypertensive urgency: Plan: Blood pressure was noted to be very high at presentation Could be complicating change in mental status No evidence of stroke and/or bleeding in the head Ongoing headache without any neurological symptoms Has been getting intravenous beta-arturo, intravenous hydralazine and oral amlodipine to control blood pressure Appreciate cardiology and nephrology input Blood pressure seems to be controlled now Blood pressure remains on the lower side so will not increase hydralazine for now Blood pressure remains on the lower side following dialysis Blood pressure seems to be reasonably controlled (4) Fall: Plan: As above (5) End stage renal disease: Plan: Has end-stage renal disease on hemodialysis She missed her dialysis yesterday Appreciate nephrology input and recommendation She will have dialysis today-04/29/2021 She has had dialysis on 05/01/2021 Continue hemodialysis (6) DM2 (diabetes mellitus, type 2): Plan: Continue with SSI Check blood sugar AC at bedtime (7) COPD (chronic obstructive pulmonary disease): Plan: History of COPD without any exacerbation now (8) Restless leg syndrome: Plan: We will continue current medication Plan: DVT prophylaxis-subcu heparin CODE STATUS Full Admission and Anticipated Discharge Date Admission Date: April 28, 2021 Subjective 04/29/2021 The patient was seen and examined in telemetry unit She has been complaining of severe headache without any associated symptoms of nausea no vomiting, dizziness and/or numbness tingling in the extremities No neurodeficit but she does have tremors and abnormal movements involving the upper and to some extent lower extremities Denies any chest pain and/or palpitation 04/30/2021 The patient was seen and examined in telemetry unit Today she is completely a different person She is alert awake and oriented x3 but complains to have severe headache Denies any other symptoms 05/01/2021 The patient was seen and examined in telemetry unit She has been feeling much better but could not tolerate MRI which was partly done Denies any other symptoms except mild headache 05/02/2021 The patient was seen and examined in telemetry unit She has been feeling much better and the headache has diminished Denies any other symptoms Will be discharged home this afternoon 05/03/2021 The patient was seen and examined in telemetry unit She has been feeling much better and complains to have headache Denies any other symptoms She is very afraid to go home Review of Systems Review of Systems: All systems reviewed and are unremarkable except as noted below Neurologic: Complaints headache with some nausea Physical Exam Physical Exam: No acute arthritis in any joint lying in bed with acute discomfort secondary to severe headache Constitutional: average body habitus; not ill appearing ENMT: external ear and nose normal, oropharynx normal Neck: no nuchal rigidity Respiratory: no respiratory distress Auscultation: lungs clear to auscultation bilaterally and + diminished lung sounds; no crackles Cardiovascular: Rate/Rhythm: regular rate, regular rhythm and + bradycardic Heart Sounds: normal S1 and normal S2; no murmur Extremities: no edema Gastrointestinal (Abdomen): Inspection/Auscultation: normal bowel sounds; abdomen not distended Percussion/Palpation: abdomen soft; abdomen nontender Musculoskeletal: No acute arthritis in any joint Neurologic: Alert, awake and oriented x3 Psychiatric: Has adjustment disorder with mixed anxiety and depression but no significant anxiety as of today Results & Data Results & [facility] ([facility]) Vital Signs (Past 12 Hours) Vital Signs Temp Pulse Pulse Pulse Resp BP BP 05/03/21 17:20 55 L 165/67 H 05/03/21 17:00 54 L 159/69 H 05/03/21 16:40 55 L 151/62 H 05/03/21 16:23 75 05/03/21 16:20 54 L 152/62 H 05/03/21 16:00 37 C 57 L 74 18 143/65 H 129/61 05/03/21 15:40 52 L 122/62 05/03/21 15:20 52 L 122/62 05/03/21 15:00 51 L 134/58 L 05/03/21 14:37 53 L 145/60 H 05/03/21 14:30 36.6 C 51 L 05/03/21 12:10 36.5 C 77 20 148/59 H 05/03/21 08:16 36.5 C 84 18 151/71 H 05/03/21 08:03 05/03/21 07:00 53 L BP Pulse Ox 05/03/21 17:20 05/03/21 17:00 05/03/21 16:40 05/03/21 16:23 05/03/21 16:20 05/03/21 16:00 98 05/03/21 15:40 05/03/21 15:20 05/03/21 15:00 05/03/21 14:37 05/03/21 14:30 05/03/21 12:10 98 05/03/21 08:16 05/03/21 08:03 162/62 H 05/03/21 07:00 Medications Administered Current Inpatient Medications Acetaminophen (Acetaminophen 500 Mg Tab) 1,000 mg PO Q6H PRN PRN Reason: Headache Stop: 05/29/21 09:45 Last Admin: 05/02/21 13:43 Dose: 1,000 mg Documented by: Albuterol (Albuterol Hfa 8 Gm Inhaler) 2 puffs INH Q4R PRN PRN Reason: Shortness Of Breath Stop: 05/29/21 00:27 Albuterol (Albut/Ipratrop 3mg/0.5mg Neb 3 Ml Vial) 3 ml INH Q4R PRN; Protocol PRN Reason: Shortness Of Breath Stop: 05/29/21 00:27 Amlodipine Besylate (Amlodipine Besylate 5 Mg Tab) 10 mg PO QAM [facility] Stop: 05/29/21 08:59 Last Admin: 05/03/21 08:00 Dose: 10 mg Documented by: Aspirin (Aspirin 81 Mg Ectab) 81 mg PO QAM [facility] Stop: 05/29/21 08:59 Last Admin: 05/03/21 07:59 Dose: 81 mg Documented by: Azelastine HCl (Azelastine Hcl 0.1% Nasal 200 Sprays/27,400 Mcg Btl) 2 sprays NA BID [facility] Stop: 05/29/21 08:59 Last Admin: 05/03/21 08:02 Dose: 2 sprays Documented by: Clopidogrel Bisulfate (Clopidogrel Bisulfate 75 Mg Tab) 75 mg PO DAILY [facility] Stop: 05/29/21 08:59 Last Admin: 05/03/21 08:00 Dose: 75 mg Documented by: Dextrose (Dextrose 50% 50 Ml Syringe) 25 - 50 ml IV UD PRN; Protocol PRN Reason: Hypoglycemia Protocol Stop: 05/30/21 15:00 Epinephrine HCl (Epinephrine Inj 1 Mg/Ml Amp) 0.3 mg IM Q4H PRN PRN Reason: Anaphylaxis Stop: 05/29/21 00:53 Fluticasone Propionate (Fluticasone Propionate Na Spr 16 Gm Btl) 1 sprays NA DAILY PRN PRN Reason: Nasal Congestion Stop: 05/29/21 00:27 Fluticasone/Vilanterol (Fluticasone/Vilanterol 100/25mcg 14 Puffs/Inhaler) 1 puffs INH DAILY [facility] Stop: 05/29/21 08:59 Last Admin: 05/03/21 08:02 Dose: 1 puffs Documented by: Furosemide (Furosemide 40 Mg Tab) 40 mg PO QAM [facility] Stop: 05/29/21 08:59 Last Admin: 05/03/21 08:01 Dose: 40 mg Documented by: Glucagon (Glucagon For Inj 1 Mg Vial) 1 mg SQ UD PRN; Protocol PRN Reason: Hypoglycemia Protocol Stop: 05/30/21 15:00 Glucose (Glucose 10 Tabs/Tube) 4 - 8 tabs PO UD PRN; Protocol PRN Reason: Hypoglycemia Protocol Stop: 05/30/21 15:00 Glucose (Glucose 40% Gel 15 Gm Tube) 15 - 30 gm PO UD PRN; Protocol PRN Reason: Hypoglycemia Protocol Stop: 05/30/21 15:00 Heparin Sodium (Porcine) (Heparin Sod 5,000 Unit/0.5 Ml Vial) 5,000 units SQ Q8 [facility] Stop: 05/29/21 05:59 Last Admin: 05/03/21 14:42 Dose: Not Given Documented by: Hydralazine HCl (Hydralazine Hcl 20 Mg/Ml Vial) 10 mg IV Q4H PRN PRN Reason: HTN uncontrolled by Enalapril Stop: 05/29/21 09:45 Hydralazine HCl (Hydralazine Tab 50 Mg Tab) 50 mg PO BID [facility] Stop: 05/31/21 20:59 Last Admin: 05/03/21 07:54 Dose: 50 mg Documented by: Hydromorphone HCl (Hydromorphone Inj 0.5 Mg/0.5 Ml Syr) 0.25 mg IV Q6H PRN PRN Reason: Pain Stop: 05/14/21 09:02 Last Admin: 05/03/21 11:46 Dose: 0.25 mg Documented by: Enalaprilat 0.625 mg/ Syringe 10 mls @ 2 mls/min IV Q4H PRN; Protocol PRN Reason: sbp > 160 Stop: 05/29/21 09:44 Levetiracetam 500 mg/ Sodium (Chloride) 105 mls @ 420 mls/hr IV DAILY@1800 [facility]; Protocol Stop: 05/29/21 17:59 Last Infusion: 05/02/21 18:48 Dose: Infused Documented by: Insulin Aspart (Insulin Aspart Per Unit) 0 units SC ACHS [facility] Stop: 05/29/21 07:29 Last Admin: 05/03/21 12:13 Dose: 7 units Documented by: Levothyroxine Sodium (Levothyroxine Sodium 25 Mcg Tablet) 25 mcg PO DAILYBB [facility] Stop: 05/29/21 06:29 Last Admin: 05/03/21 05:12 Dose: 25 mcg Documented by: Loperamide HCl (Loperamide Hcl 2 Mg Cap) 2 mg PO DAILY PRN PRN Reason: Diarrhea Stop: 06/01/21 20:06 Melatonin (Melatonin 3 Mg Tab) 3 mg PO HS PRN PRN Reason: Sleep Stop: 05/30/21 21:22 Last Admin: 05/02/21 21:26 Dose: 3 mg Documented by: Metoprolol Tartrate (Metoprolol Tartrate 25 Mg Tab) 12.5 mg PO BID [facility] Stop: 05/30/21 12:14 Last Admin: 05/03/21 07:59 Dose: 12.5 mg Documented by: Miscellaneous (Carbohydrates For Hypoglycemia ) 15 - 30 gm PO UD PRN PRN Reason: Hypoglycemia Protocol Stop: 05/30/21 15:00 Last Admin: 05/03/21 13:55 Dose: 15 gm Documented by: Montelukast Sodium (Montelukast Sodium 10 Mg Tablet) 10 mg PO HS [facility] Stop: 05/29/21 20:59 Last Admin: 05/02/21 20:16 Dose: 10 mg Documented by: Nitroglycerin (Nitroglycerin Sl 0.4 Mg/Tab Tab) 0.4 mg SL UD PRN PRN Reason: Angina Stop: 05/29/21 00:27 Ondansetron HCl (Ondansetron Inj 2 Mg/Ml 2 Ml Vial) 4 mg IV Q6H PRN PRN Reason: Nausea Stop: 05/29/21 00:27 Last Admin: 05/03/21 10:59 Dose: 4 mg Documented by: Ropinirole HCl (Ropinirole Hcl 0.25 Mg Tablet) 0.5 mg PO HS [facility] Stop: 05/29/21 20:59 Last Admin: 05/02/21 20:21 Dose: 0.5 mg Documented by: Sertraline HCl (Sertraline Hcl 50 Mg Tablet) 150 mg PO QAM [facility] Stop: 05/29/21 08:59 Last Admin: 05/03/21 08:01 Dose: 150 mg Documented by: Sevelamer HCl (Sevelamer Hcl 800 Mg Tablet) 800 mg PO TIDM [facility] Stop: 05/29/21 07:59 Last Admin: 05/03/21 12:14 Dose: 800 mg Documented by: Vitamin D (Cholecalciferol 1,000 Units 25 Mcg Tab) 1,000 units PO DAILY [facility] Stop: 05/29/21 08:59 Last Admin: 05/03/21 07:54 Dose: 1,000 units Documented by: (1) Atrial fibrillation Atrial fibrillation type: paroxysmal Qualified Code(s): I48.0 - Paroxysmal atrial fibrillation (2) Fall Encounter type: initial encounter Qualified Code(s): W19.XXXA - Unspecified fall, initial encounter
[2021-05-03] MEDS: levETIRAcetam 500 MG in 0.9 % SODIUM CHLORIDE 100 ML IV SCH (18:09)
[2021-05-03] MEDS: ACETAMINOPHEN 500 MG TAB PO PRN ×2 (19:23→23:52)
[2021-05-03] MEDS: MONTELUKAST SODIUM 10 MG TABLET PO SCH (20:25)
[2021-05-03] MEDS: rOPINIRole HCL 0.25 MG TABLET PO SCH (20:27)
[2021-05-03] MEDS: MELATONIN 3 MG TAB PO PRN (20:33)
[2021-05-03] MEDS: LOPERAMIDE HCL 2 MG CAP PO PRN (21:35)
[2021-05-04] MEDS: HYDROmorphone INJ 0.5 MG/0.5 ML SYR IV PRN ×2 (00:28→09:06)
[2021-05-04] MEDS: HEPARIN SOD 5,000 UNIT/0.5 ML VIAL SQ SCH ×3 (05:25→21:11)
[2021-05-04] MEDS: LEVOTHYROXINE SODIUM 25 MCG TABLET PO SCH (05:31)
[2021-05-04] MEDS: METOPROLOL TARTRATE 25 MG TAB PO SCH ×2 (08:48→21:01)
[2021-05-04] MEDS: ASPIRIN 81 MG ECTAB PO SCH (08:49)
[2021-05-04] MEDS: SERTRALINE HCL 50 MG TABLET PO SCH (08:49)
[2021-05-04] MEDS: FUROSEMIDE 40 MG TAB PO SCH (08:49)
[2021-05-04] MEDS: CHOLECALCIFEROL 1,000 UNITS 25 MCG TAB PO SCH (08:49)
[2021-05-04] MEDS: CLOPIDOGREL BISULFATE 75 MG TAB PO SCH (08:49)
[2021-05-04] MEDS: SEVELAMER HCL 800 MG TABLET PO SCH ×3 (08:49→16:24)
[2021-05-04] MEDS: hydrALAZINE TAB 50 MG TAB PO SCH ×2 (08:49→21:00)
[2021-05-04] MEDS: amLODIPine BESYLATE 5 MG TAB PO SCH (08:51)
[2021-05-04] MEDS: AZELASTINE HCL 0.1% NASAL 200 SPRAYS/27,400 MCG BTL SCH (08:51)
[2021-05-04] MEDS: FLUTICASONE/VILANTEROL 100/25MCG 14 PUFFS/INHALER INH SCH (08:51)
[2021-05-04] MEDS: INSULIN ASPART PER UNIT SC SCH ×4 (09:05→21:01)
[2021-05-04] MEDS: LOPERAMIDE HCL 2 MG CAP PO PRN (09:05)
[2021-05-04] MEDS ORDERED: AZELASTINE HCL 0.1% NASAL 200 SPRAYS/27,400 MCG BTL PRN (15:20)
--- NOTE | 2021-05-04 15:30 | Hospitalist Progress Note ---
Date of Service May 04, 2021 Assessment & Plan (1) Unresponsive episode: Plan: Admitted with unresponsive episode and a fall Has had similar episodes before and is thought to be due to polypharmacy She had been sent home from the ER just prior to that and was given pain medications Her medication does not include any narcotics Urine tox screen did not show any narcotics or benzodiazepines She is alert awake and oriented when I examined her She does not have any significant injury from the fall Noted to have seizure spike on EEG-could have initiated the fall She vomited during MRI was partially finished and the finished MRI is unremarkable She has been alert awake and oriented without any focal neurologic deficits on examination Continues on Keppra (2) Atrial fibrillation: Plan: History of atrial fibrillation, CAD status post CABG and on aspirin and Plavix Appreciate cardiology input and recommendation Rate seems to be controlled Medications have been adjusted by the microbiology teacher Heart rate is on the lower side and metoprolol dose has been adjusted (3) Hypertensive urgency: Plan: Blood pressure was noted to be very high at presentation Could be complicating change in mental status remains slightly elevated, and may be contributing. Cont current medications for now. (4) Fall: Plan: PT/OT (5) End stage renal disease: Plan: Has end-stage renal disease on hemodialysis She missed her dialysis yesterday Appreciate nephrology input and recommendation She will have dialysis today-04/29/2021 She has had dialysis on 05/01/2021 Continue hemodialysis (6) DM2 (diabetes mellitus, type 2): Plan: chronic, controlled, cont current therapy (7) COPD (chronic obstructive pulmonary disease): Plan: History of COPD without any exacerbation now (8) Anxiety: Plan: cont sertraline (9) Restless leg syndrome: Plan: We will continue current medication (10) Headache: Plan: Severe headache that is intermittent Denies any neurological symptoms and no neck stiffness and/or photophobia No fever and or chills Tylenol is not helping, Dilaudid IV is not going to work going home. stop IV dilaudid start tizanidine-HD dose is once daily stop nasal antihistamines BID as scheduled-see [employer] Nigel PRN for reported insomnia likely related to adjustment disorder vs severe anxiety vs pain transfer to floor dc tomorrow if improved and headache free for 24 hours, or at least better controlled convert Keppra to oral Janna [place], DO [facility] Hospitalist Admission and Anticipated Discharge Date Admission Date: April 28, 2021 Subjective 71 yo F on hemodialysis presented after an unresponsive episode. Ongoing headaches, tension-type, starting in neck and around to the frontal head. Causes illness to the point of vomiting. She is having relief from IV dilaudid, and has required this at least 2-3 times per day with complete resolution of headache. Her headache is currently gone. 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 She will apply this pressure on the next headache to see if it helps her. She mendoza sa hard wallet on the bedside table that she will use. She reports insomnia that appears multifactorial, including life stressors, the PCU environment and her roommate. She is reporting melaton in is not working. Tolerating PO. Review of Systems Review of Systems: All other systems were reviewed and negative except as indicated in subjective above . Physical Exam Physical Exam: CONSTITUTIONAL: WNWD, vitals as above, generally well- appearing, NAD EYES: normal conjunctivae, no scleral icterus ENT: external ear and nose normal, MMM NECK: trachea midline RESPIRATORY: clear to auscultation bilaterally, no crackles, rales or wheezes, normal respiratory effort CARDIOVASCULAR: regular rate and rhythm, S1 and 2 heard without murmurs, gallops or rubs, no JVD, no peripheral edema CHEST: inspection of chest was normal GASTROINTESTINAL: soft, nontender, ND, no guarding MUSCULOSKELETAL: strength 5/5 throughout, head is normocephalic and atraumatic, able to sit up in bed independently. SKIN: warm and dry NEUROLOGIC: CN 2-12 grossly intact, no sensory deficit, normal cognition, normal speech, no tremor PSYCHIATRIC: alert cooperative and oriented to person, place and time. Results & Data Results & Data ([facility]) Vital Signs (Past 12 Hours) Vital Signs Temp Pulse Pulse Resp BP BP Pulse Ox 05/04/21 12:00 36.8 C 76 16 136/69 05/04/21 07:53 36.8 C 72 18 152/73 H 96 05/04/21 07:00 50 L 05/04/21 04:19 37.3 C 50 L 18 159/69 H 93 Medications Administered Current Inpatient Medications Acetaminophen (Acetaminophen 500 Mg Tab) 1,000 mg PO Q6H PRN PRN Reason: Headache Stop: 05/29/21 09:45 Last Admin: 05/03/21 23:52 Dose: 1,000 mg Documented by: Albuterol (Albuterol Hfa 8 Gm Inhaler) 2 puffs INH Q4R PRN PRN Reason: Shortness Of Breath Stop: 05/29/21 00:27 Albuterol (Albut/Ipratrop 3mg/0.5mg Neb 3 Ml Vial) 3 ml INH Q4R PRN; Protocol PRN Reason: Shortness Of Breath Stop: 05/29/21 00:27 Amlodipine Besylate (Amlodipine Besylate 5 Mg Tab) 10 mg PO QAM [facility] Stop: 05/29/21 08:59 Last Admin: 05/04/21 08:51 Dose: 10 mg Documented by: Aspirin (Aspirin 81 Mg Ectab) 81 mg PO QAM [facility] Stop: 05/29/21 08:59 Last Admin: 05/04/21 08:49 Dose: 81 mg Documented by: Azelastine HCl (Azelastine Hcl 0.1% Nasal 200 Sprays/27,400 Mcg Btl) 2 sprays NA BID PRN PRN Reason: nasal congestion Stop: 05/29/21 08:59 Clopidogrel Bisulfate (Clopidogrel Bisulfate 75 Mg Tab) 75 mg PO DAILY [facility] Stop: 05/29/21 08:59 Last Admin: 05/04/21 08:49 Dose: 75 mg Documented by: Dextrose (Dextrose 50% 50 Ml Syringe) 25 - 50 ml IV UD PRN; Protocol PRN Reason: Hypoglycemia Protocol Stop: 05/30/21 15:00 Epinephrine HCl (Epinephrine Inj 1 Mg/Ml Amp) 0.3 mg IM Q4H PRN PRN Reason: Anaphylaxis Stop: 05/29/21 00:53 Fluticasone Propionate (Fluticasone Propionate Na Spr 16 Gm Btl) 1 sprays NA DAILY PRN PRN Reason: Nasal Congestion Stop: 05/29/21 00:27 Fluticasone/Vilanterol (Fluticasone/Vilanterol 100/25mcg 14 Puffs/Inhaler) 1 puffs INH DAILY [facility] Stop: 05/29/21 08:59 Last Admin: 05/04/21 08:51 Dose: 1 puffs Documented by: Furosemide (Furosemide 40 Mg Tab) 40 mg PO QAM [facility] Stop: 05/29/21 08:59 Last Admin: 05/04/21 08:49 Dose: 40 mg Documented by: Glucagon (Glucagon For Inj 1 Mg Vial) 1 mg SQ UD PRN; Protocol PRN Reason: Hypoglycemia Protocol Stop: 05/30/21 15:00 Glucose (Glucose 10 Tabs/Tube) 4 - 8 tabs PO UD PRN; Protocol PRN Reason: Hypoglycemia Protocol Stop: 05/30/21 15:00 Glucose (Glucose 40% Gel 15 Gm Tube) 15 - 30 gm PO UD PRN; Protocol PRN Reason: Hypoglycemia Protocol Stop: 05/30/21 15:00 Heparin Sodium (Porcine) (Heparin Sod 5,000 Unit/0.5 Ml Vial) 5,000 units SQ Q8 [facility] Stop: 05/29/21 05:59 Last Admin: 05/04/21 15:21 Dose: 5,000 units Documented by: Hydralazine HCl (Hydralazine Hcl 20 Mg/Ml Vial) 10 mg IV Q4H PRN PRN Reason: HTN uncontrolled by Enalapril Stop: 05/29/21 09:45 Hydralazine HCl (Hydralazine Tab 50 Mg Tab) 50 mg PO BID [facility] Stop: 05/31/21 20:59 Last Admin: 05/04/21 08:49 Dose: 50 mg Documented by: Insulin Aspart (Insulin Aspart Per Unit) 0 units SC ACHS [facility] Stop: 05/29/21 07:29 Last Admin: 05/04/21 12:39 Dose: 5 units Documented by: Levetiracetam (Levetiracetam 500 Mg Tab) 500 mg PO DAILY@1800 [facility] Stop: 06/03/21 17:59 Levothyroxine Sodium (Levothyroxine Sodium 25 Mcg Tablet) 25 mcg PO DAILYBB [facility] Stop: 05/29/21 06:29 Last Admin: 05/04/21 05:31 Dose: 25 mcg Documented by: Loperamide HCl (Loperamide Hcl 2 Mg Cap) 2 mg PO DAILY PRN PRN Reason: Diarrhea Stop: 06/01/21 20:06 Last Admin: 05/04/21 09:05 Dose: 2 mg Documented by: Metoprolol Tartrate (Metoprolol Tartrate 25 Mg Tab) 12.5 mg PO BID [facility] Stop: 05/30/21 12:14 Last Admin: 05/04/21 08:48 Dose: 12.5 mg Documented by: Miscellaneous (Carbohydrates For Hypoglycemia ) 15 - 30 gm PO UD PRN PRN Reason: Hypoglycemia Protocol Stop: 05/30/21 15:00 Last Admin: 05/03/21 13:55 Dose: 15 gm Documented by: Montelukast Sodium (Montelukast Sodium 10 Mg Tablet) 10 mg PO HS [facility] Stop: 05/29/21 20:59 Last Admin: 05/03/21 20:25 Dose: 10 mg Documented by: Nitroglycerin (Nitroglycerin Sl 0.4 Mg/Tab Tab) 0.4 mg SL UD PRN PRN Reason: Angina Stop: 05/29/21 00:27 Ondansetron HCl (Ondansetron Inj 2 Mg/Ml 2 Ml Vial) 4 mg IV Q6H PRN PRN Reason: Nausea Stop: 05/29/21 00:27 Last Admin: 05/03/21 10:59 Dose: 4 mg Documented by: Ropinirole HCl (Ropinirole Hcl 0.25 Mg Tablet) 0.5 mg PO HS [facility] Stop: 05/29/21 20:59 Last Admin: 05/03/21 20:27 Dose: 0.5 mg Documented by: Sertraline HCl (Sertraline Hcl 50 Mg Tablet) 150 mg PO QAM [facility] Stop: 05/29/21 08:59 Last Admin: 05/04/21 08:49 Dose: 150 mg Documented by: Sevelamer HCl (Sevelamer Hcl 800 Mg Tablet) 800 mg PO TIDM [facility] Stop: 05/29/21 07:59 Last Admin: 05/04/21 12:40 Dose: 800 mg Documented by: Tizanidine HCl (Tizanidine Hcl 4 Mg Tablet) 2 mg PO DAILY [facility] Stop: 06/03/21 15:14 Vitamin D (Cholecalciferol 1,000 Units 25 Mcg Tab) 1,000 units PO DAILY [facility] Stop: 05/29/21 08:59 Last Admin: 05/04/21 08:49 Dose: 1,000 units Documented by: Zolpidem Tartrate (Zolpidem Tartrate 5 Mg Tab) 2.5 mg PO HS PRN PRN Reason: Sleep Stop: 06/03/21 15:15 (1) Atrial fibrillation Atrial fibrillation type: paroxysmal Qualified Code(s): I48.0 - Paroxysmal atrial fibrillation (2) Fall Encounter type: initial encounter Qualified Code(s): W19.XXXA - Unspecified fall, initial encounter
[2021-05-04] MEDS: tiZANidine HCL 4 MG TABLET PO SCH (16:21)
[2021-05-04] MEDS: levETIRAcetam 500 MG TAB PO SCH (16:59)
[2021-05-04] MEDS ORDERED: BUTALBITAL/ACETAMIN/CAFFEINE TAB PO STA (19:12)
[2021-05-04] MEDS: MONTELUKAST SODIUM 10 MG TABLET PO SCH (21:02)
[2021-05-04] MEDS: rOPINIRole HCL 0.25 MG TABLET PO SCH (21:02)
[2021-05-04] MEDS: ZOLPIDEM TARTRATE 5 MG TAB PO PRN (21:08)
[2021-05-05] MEDS: LEVOTHYROXINE SODIUM 25 MCG TABLET PO SCH (05:41)
[2021-05-05] MEDS: BUTALBITAL/ACETAMIN/CAFFEINE TAB PO PRN ×3 (05:41→16:37)
[2021-05-05] MEDS: HEPARIN SOD 5,000 UNIT/0.5 ML VIAL SQ SCH ×3 (05:43→20:02)
[2021-05-05 06:43] LABS: Hematocrit (blood only) 32.7 % (37-47); Hemoglobin 10.6 g/dL (12.0-16.0); Mean Corpuscular Hemoglobin 30.7 pg (25-34); Mean Corpuscular Hgb Conc 32.4 g/dL (32-36); Mean Corpuscular Volume 94.8 fL (80-100); Platelet Count 128 K/uL (130-400); RDW Coefficient of Variation 16.1 % (11.5-14.5); RDW Standard Deviation 52.6 fL (36.4-46.3); Red Blood Count 3.45 M/uL (4.2-5.4); White Blood Count 5.64 K/uL (4.8-10.8)
[2021-05-05 06:59] LABS: BUN Creatinine Ratio 11.7 (10-20); Calcium 8.6 mg/dl (8.5-10.1); Creatinine Clr Calc Pharmacy 11.4 ml/min; Est GFR (African American) 11.7 ml/min; Est GFR (Non-African American) 10.1 ml/min; Magnesium 2.3 mg/dl (1.7-2.4); Phosphorus 4.3 mg/dl (2.5-4.9); Potassium 4.5 mmol/L (3.5-5.1)
[2021-05-05] MEDS: CLOPIDOGREL BISULFATE 75 MG TAB PO SCH (07:59)
[2021-05-05] MEDS: ASPIRIN 81 MG ECTAB PO SCH (07:59)
[2021-05-05] MEDS: SEVELAMER HCL 800 MG TABLET PO SCH ×3 (07:59→17:54)
[2021-05-05] MEDS: SERTRALINE HCL 50 MG TABLET PO SCH (08:00)
[2021-05-05] MEDS: tiZANidine HCL 4 MG TABLET PO SCH (08:00)
[2021-05-05] MEDS: amLODIPine BESYLATE 5 MG TAB PO SCH (08:00)
[2021-05-05] MEDS: CHOLECALCIFEROL 1,000 UNITS 25 MCG TAB PO SCH (08:01)
[2021-05-05] MEDS: METOPROLOL TARTRATE 25 MG TAB PO SCH ×2 (08:02→20:01)
[2021-05-05] MEDS: hydrALAZINE TAB 50 MG TAB PO SCH ×2 (08:02→20:01)
[2021-05-05] MEDS: FLUTICASONE/VILANTEROL 100/25MCG 14 PUFFS/INHALER INH SCH (08:02)
[2021-05-05] MEDS: FUROSEMIDE 40 MG TAB PO SCH (08:03)
[2021-05-05] MEDS: INSULIN ASPART PER UNIT SC SCH ×4 (08:59→20:57)
[2021-05-05] MEDS ORDERED: GABAPENTIN 100 MG CAP PO PRN (15:00)
--- NOTE | 2021-05-05 15:50 | Hospitalist Progress Note ---
Date of Service May 05, 2021 Assessment & Plan (1) Fall: (2) Unresponsive episode: (3) Seizure: Plan: This is a 71-year-old female with past medical history significant for DM II, hyperthyroidism 2/2 renal disease, ESRD on hemodialysis, hypothyroidism, history of COPD, chronic rhinitis, history of [place], history of paroxysmal atrial fibrillation, GERD, history of dysphagia, history of restless legs syndrome, history of hearing loss, iron deficiency anemia, history of tobacco abuse, insomnia, anxiety and depression and was brought in because of unresponsiveness. Has had similar episodes before that were thought to be due to polypharmacy but med list does not include narcotics. Utox without narcotics or bzds Seen by Dr. Manzano of neuro - EEG came back positive for seizure spike. [place] fall at home was precipitated by seizure. Started on keppra 500mg daily. Will require an add'l dose of 500mg after each HD MRI brain without acute intracranial abnormality is identified although patient vomited during the examination and declined to complete the study Will not be able to drive for about 6 months Neuro to arrange outpatient follow up and schedule a Keppra level for Sunday (4) Headache: Plan: Ongoing headaches starting in neck and wrapping around to frontal aspect of head Initially thought to be post-ictal but has continued during admission somewhat intermittently Headache resolved last evening with tylenol and Fioricet but returned this morning Has not been drinking any water due to not liking taste of tap, which is likely contributing. Encouraged PO intake of bottled water Discussed with neuro - medications restricted given a HD patient. Recommended continuing Zanaflex (unable to increase dose 2/2 HD patient), adding PRN gabapentin 100mg daily PRN, Tylenol PRN Added PRN Fioricet as well. Likely to need continued management as outpatient (5) Adjustment disorder with mixed anxiety and depressed mood: (6) Anxiety: Plan: In setting of recent losses of , family. Seen by in-patient psychiatry. Appreciate recommendations Has been referred for [facility] psychology services Continue with sertraline 150mg daily, Buspar discontinued Consider mirtazapine 7.5 mg qhs for anxiety and insomnia though could worsen her restless leg symptoms Encouragement involvement of inpatient and outpatient case management/social work services to help her navigate resources for financial stressors (7) Atrial fibrillation: Plan: History of atrial fibrillation, CAD status post CABG and on aspirin and Plavix Appreciate cardiology input and recommendations Heart rate is on the lower side and metoprolol dose has been adjusted (8) Hypertensive urgency: Plan: Blood pressure was noted to be very high at presentation, remains somewhat elevated at 174/[address] head without acute abnormality Ongoing headache without any neurological symptoms Appreciate cardiology and nephrology input Metoprolol decreased due to bradycardia, Hydralazine 50mg BID initiated but considering increasing to TID dosing, continue amlodipine 10mg daily (9) End stage renal disease: Plan: Has end-stage renal disease on hemodialysis, TuThSa Appreciate nephrology input and recommendation (10) DM2 (diabetes mellitus, type 2): Plan: Continue with SSI Check blood sugar ACHS (11) COPD (chronic obstructive pulmonary disease): Plan: History of COPD. Stable, continue home inhalers and nebs (12) Restless leg syndrome: Plan: Continue ropinirole DVT Ppx: SQ heparin Code status: FULL PCP: Christian Dispo: Admitted to med/surg Patient seen in collaboration with Dr. Root. Please see addendum. Admission and Anticipated Discharge Date Admission Date: April 28, 2021 Supervising Physician Co-Signing Physician Notes I have seen and examined the patient and have discussed the case with the provider above. I agree with the assessment and plan as stated with the following exceptions. Patient reports improvement on the fiorcet but has taken it multiple times today. Trials of gabapentin and tizanidine have not worked. Cont with fioricet overnight. She is mentating and physically functioning at her baseline. Physical exam is unremarkable with no gross focal neurologic deficits. Multiple contributing factors to her ongoing headaches including dehydration (only drinks bottled water and not drinking, legs cramping in HD), stress, overt anxiety, elevated blood pressure, recent ?seizure activity. Give 1L 1/2 NSS overnight. If headache has gone tomorrow or remains well-controlled will plan to dc her on fioricet with close primary care follow-up. DO [place] Root Seen and examined in 383-1. Initially presented after unresponsive episode. Ongoing headaches starting in neck and wrapping around to frontal aspect of head. Headache resolved last evening with tylenol and Fioricet but returned this morning. Has not been drinking any water due to not liking taste of tap - drinks bottled at home. Has been drinking iced tea and decaf coffee. No F/C, CP, SOB, abdominal pain, dysuria, diarrhea or constipation. Nausea and vomiting have resolved; tolerating diet without issue today. Difficult social situation given recent passing of and son, leading to insomnia and increased stress. Review of Systems Review of Systems: At least ten systems reviewed and negative except as noted in the HPI. Physical Exam Physical Exam: Gen: WD/WN, NAD, sitting in bed, A&Ox3, mild distress 2/2 headache HEENT: Normocephalic, atraumatic, mucous membranes moist Lung: Clear to Auscultation bilaterally, no wheezes/rales/rhonchi Heart: Bradycardic rate, regular rhythm, +systolic murmur, rubs, or gallops Abdomen: Soft, NT, ND +BS x 4 Extremities: no edema Skin: Warm, no rash Results & Data Results & Data ([facility]) Vital Signs (Past 12 Hours) Vital Signs Temp Pulse Pulse Resp BP BP Pulse Ox 05/05/21 15:15 56 L 148/69 H 05/05/21 15:00 59 L 164/82 H 05/05/21 14:45 60 156/65 H 05/05/21 14:30 59 L 148/58 H 05/05/21 14:00 63 159/78 H 05/05/21 13:30 37 C 60 05/05/21 07:22 37.7 C H 58 L 16 172/65 H 93 Laboratory Results Short CBC 05/05/21 Range/Units 05:36 WBC 5.64 (4.8-10.8) K/uL Hgb 10.6 L (12.0-16.0) g/dL Hct 32.7 L (37-47) % Plt Count 128 L (130-400) K/uL BMP 05/05/21 05:36 Sodium 137 Potassium 4.5 Chloride 104 Carbon Dioxide 26 BUN 48 H Creatinine 4.11 H Glucose 112 H Calcium 8.6 Diagnostic Findings Cervical Spine CT 04/28/21 18:39 CT SCAN OF THE CERVICAL SPINE CLINICAL HISTORY: Fall. COMPARISON STUDY: CT of the cervical spine dated 04/08/2021. TECHNIQUE: CT scan of the cervical spine is performed from the skull base to the upper thoracic spine. Images are reviewed in the axial, sagittal, and coronal planes. IV contrast was not administered for this examination. A dose lowering technique was utilized adhering to the principles of ALARA. FINDINGS: Skeletal structures: The skeletal structures are osteopenic. There is no evidence of fracture or subluxation involving the cervical spine. Vertebral body height and alignment are maintained. The odontoid process and lateral masses are intact. The atlantoaxial articulation is preserved noting advanced productive degenerative change. Chronic deformity of the spinous processes of C2 is unchanged from prior studies. The spinous processes are otherwise intact. There is moderate multilevel cervical spondylosis. Uncovertebral and facet arthropathy contribute to neural foraminal stenosis at several levels. Intervertebral discs: There is straightening of the cervical lordosis. Anterior osteophytes are seen throughout. There is moderate disc space narrowing seen at C4-C5, C5-C6, and C6-C7 with associated endplate sclerosis. Central canal: Posterior disc osteophyte complexes at C4-C5, C5-C6, and C6-C7 likely contribute to acquired compromise of the central canal. Soft tissues: The prevertebral and paraspinous soft tissues are within normal limits. There is an 8 mm low-attenuation nodule in the right lobe of the thyroid gland. Calvarium: The visualized calvarium at the skull base appears intact. Brain parenchyma: Partially visualized brain parenchyma the skull base is within normal limits. Sinuses and mastoids: The visualized paranasal sinuses are clear. The mastoid air cells are well pneumatized. Lung apices: Clear as visualized. IMPRESSION: 1. There is no evidence of fracture or subluxation involving the cervical spine. 2. Osteopenia and spondylotic change as above. ACT 112: Negative or not required by law. Electronically signed by: Ricki Raza M.D. 04/28/2021 7:44 PM Chest X-Ray 04/28/21 18:39 SINGLE VIEW CHEST CLINICAL HISTORY: Change in mental status. FINDINGS: An AP, portable, supine chest radiograph is compared to study dated 04/27/2021 and correlated with chest CT dated 04/08/2021. The examination is degraded by portable technique and patient rotation. The patient is status post midline sternotomy. The heart is enlarged noting atherosclerotic calcification of the thoracic aorta. The pulmonary vasculature is noncongested. Chronic interstitial thickening is similar to previous. No airspace consolidation or large pleural effusion is identified. Atelectasis is seen at the lung bases. No pneumothorax is seen. The skeletal structures are osteopenic. The bony thorax is grossly intact. IMPRESSION: Cardiomegaly with no active disease in the chest. ACT 112: Negative or not required by law. Electronically signed by: Ricki Raza M.D. 04/28/2021 8:[address] 04/28/21 18:40 CT SCAN OF THE BRAIN WITHOUT IV CONTRAST CLINICAL HISTORY: Change in mental status. Unresponsive. COMPARISON STUDY: CT of the brain dated 04/24/2021. TECHNIQUE: Unenhanced axial CT scan of the brain is performed from the vertex to the skull base. A dose lowering technique was utilized adhering to the principles of ALARA. The patient was scanned twice due to motion artifact. CT DOSE: 1601.97 mGy.cm FINDINGS: Brain parenchyma: There are age-related involutional changes noting mild to moderate subcortical and periventricular microangiopathic change. There is no hemorrhage, mass effect, or evidence of acute territorial ischemia by CT criteria. Pal-white matter differentiation is preserved. No extra-axial fluid collection is seen. Ventricles, sulci, cisterns: Prominent secondary to involutional change. Intracranial vasculature: There is atherosclerotic calcification of the cavernous carotid and vertebral arteries. Calvarium: Unremarkable. Sinuses and mastoids: The visualized paranasal sinuses are clear. The mastoid air cells are well pneumatized. Orbits: The bony orbits are grossly intact. There are bilateral ocular lens implants. IMPRESSION: There is no hemorrhage, mass effect, or evidence of acute territorial ischemia by CT criteria. ACT 112: Negative or not required by law. Electronically signed by: Ricki Raza M.D. 04/28/2021 7:37 PM Brain MRI 04/30/21 09:59 MRI OF THE BRAIN WITHOUT IV CONTRAST CLINICAL HISTORY: Strokelike symptoms. COMPARISON STUDY: CT of the brain dated 04/28/2021. MRI of the brain dated 04/08/2021 TECHNIQUE: MRI of the brain was performed utilizing various T1 and T2-weighted sequences in the axial and sagittal planes. IV contrast was not administered for this examination. The vomited and then declined to finish the examination. Coronal FLAIR imaging was not obtained. FINDINGS: Brain parenchyma: There is age-related involutional change noting mild subcortical and periventricular microangiopathic disease. There is no hemorrhage or mass effect. There is no restricted diffusion to suggest acute ischemia. Pal-white matter differentiation is preserved. No extra-axial fluid collection is seen. The cerebellar tonsils are normal in configuration. Ventricles, sulci, and cisterns: Prominent secondary to involutional change. Pituitary and sella: Partially empty sella is incidentally noted. Intracranial vasculature: Normal flow voids are maintained at the skull base. Orbits: The bony orbits are grossly intact. Orbital contents are normal in appearance noting bilateral ocular lens implants. Sinuses and mastoids: Clear. Calvarium: Unremarkable. Cervical cord: Partially visualized cervical spinal cord is normal in morphology and signal intensity. IMPRESSION: 1. No acute intracranial abnormality is identified. 2. The patient vomited during the examination and declined to complete the study. Coronal FLAIR images were not acquired. ACT 112: Negative or not required by law. Electronically signed by: Ricki Raza M.D. 04/30/2021 2:35 PM (1) Atrial fibrillation Atrial fibrillation type: paroxysmal Qualified Code(s): I48.0 - Paroxysmal atrial fibrillation (2) Fall Encounter type: initial encounter Qualified Code(s): W19.XXXA - Unspecified fall, initial encounter
[2021-05-05] MEDS: ACETAMINOPHEN 500 MG TAB PO PRN (15:52)
[2021-05-05] MEDS: levETIRAcetam 500 MG TAB PO SCH (17:54)
[2021-05-05] MEDS ORDERED: SODIUM CHLORIDE 0.45 % 1,000 ML IV SCH (19:15)
[2021-05-05] MEDS: MONTELUKAST SODIUM 10 MG TABLET PO SCH (20:01)
[2021-05-05] MEDS: rOPINIRole HCL 0.25 MG TABLET PO SCH (20:02)
[2021-05-05] MEDS: ZOLPIDEM TARTRATE 5 MG TAB PO PRN (20:07)
[2021-05-06] MEDS: HEPARIN SOD 5,000 UNIT/0.5 ML VIAL SQ SCH ×2 (05:26→13:19)
[2021-05-06] MEDS: LEVOTHYROXINE SODIUM 25 MCG TABLET PO SCH (05:26)
[2021-05-06] MEDS: BUTALBITAL/ACETAMIN/CAFFEINE TAB PO PRN (05:39)
[2021-05-06 08:00] LABS: Hematocrit (blood only) 32.5 % (37-47); Hemoglobin 10.5 g/dL (12.0-16.0); Mean Corpuscular Hemoglobin 30.7 pg (25-34); Mean Corpuscular Hgb Conc 32.3 g/dL (32-36); Mean Platelet Volume 9.6 fL (7.4-10.4); Platelet Count 124 K/uL (130-400); RDW Coefficient of Variation 16.4 % (11.5-14.5); RDW Standard Deviation 54.6 fL (36.4-46.3); Red Blood Count 3.42 M/uL (4.2-5.4); White Blood Count 5.33 K/uL (4.8-10.8)
[2021-05-06 08:30] LABS: BUN Creatinine Ratio 10.6 (10-20); Calcium 8.3 mg/dl (8.5-10.1); Creatinine Clr Calc Pharmacy 13.5 ml/min; Est GFR (African American) 14.3 ml/min; Est GFR (Non-African American) 12.4 ml/min; Potassium 4.4 mmol/L (3.5-5.1)
[2021-05-06] MEDS ORDERED: SUMAtriptan succinate 6 MG/0.5 ML VIAL SQ PRN (08:56)
[2021-05-06] MEDS: ASPIRIN 81 MG ECTAB PO SCH (09:29)
[2021-05-06] MEDS: METOPROLOL TARTRATE 25 MG TAB PO SCH (09:30)
[2021-05-06] MEDS: hydrALAZINE TAB 50 MG TAB PO SCH ×2 (09:30→13:20)
[2021-05-06] MEDS: SEVELAMER HCL 800 MG TABLET PO SCH ×3 (09:32→17:02)
[2021-05-06] MEDS: CLOPIDOGREL BISULFATE 75 MG TAB PO SCH (09:33)
[2021-05-06] MEDS: CHOLECALCIFEROL 1,000 UNITS 25 MCG TAB PO SCH (09:33)
[2021-05-06] MEDS: amLODIPine BESYLATE 5 MG TAB PO SCH (09:33)
[2021-05-06] MEDS: SERTRALINE HCL 50 MG TABLET PO SCH (09:34)
[2021-05-06] MEDS: FLUTICASONE/VILANTEROL 100/25MCG 14 PUFFS/INHALER INH SCH (09:35)
[2021-05-06] MEDS: INSULIN ASPART PER UNIT SC SCH ×3 (09:37→18:36)
--- NOTE | 2021-05-06 10:28 | Nephrology Progress Note ---
Date of Service May 06, 2021 Assessment & Plan Admission and Anticipated Discharge Date Admission Date: April 28, 2021 Subjective Subjective A/p 1 ESRD--NO fluid or lytes issues today. HD -- 3hrs and take 2 kilo off on 2k for tomorrow. Stable for discharge but need to find safe/correct Placement 2 AMS/Unresponsiveness--Multifactorial but now back to baseline. Since her she has not been acting well. med non adherence sec to Cost/Confusion. Previous admission polypharmacy--accidental vs Intentional. S----C/o headache yesterday and also shortened her Dialysis RX on her own. Seems she is back to her baseline status. BP also near normal now Physical Exam Constitutional: well developed, well nourished and + acute distress (c/o of CARL) Eyes: EOM intact bilaterally ENMT: Ears: no external ear abnormality Nose: no external nose abnormality Mouth: + dry oral mucous membranes Neck: no nuchal rigidity Respiratory: normal respiratory effort Auscultation: + diminished lung sounds Cardiovascular: RRR, no murmur, no edema Extremities: + AV fistula (+t/b) Gastrointestinal (Abdomen): Inspection/Auscultation: normal bowel sounds Percussion/Palpation: abdomen soft; abdomen nontender Musculoskeletal: Extremities: strength 5/5 throughout Skin: no rashes, warm and dry Neurologic: de paz, fluent speech, no tremor Psychiatric: Orientation: oriented to person and oriented to place Results & Data ([facility]) Vital Signs (Past 12 Hours) Vital Signs Temp Pulse Resp BP Pulse Ox 05/06/21 07:12 36.7 C 59 L 16 151/69 H 95
[2021-05-06] MEDS ORDERED: SUMAtriptan succinate 50 MG TAB PO ONE (16:35)
[2021-05-06] MEDS: levETIRAcetam 500 MG TAB PO SCH (17:03)
--- NOTE | 2021-05-06 17:35 | Discharge Summary ---
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 The patient lives with her son and was brought in because of unresponsiveness. The patient was found by her son in the bathroom with faeces there was no blood. This was approximately around 5:15 p.m. today. EMS was called. They thought could be some shaking of the leg, some tremors, no seizure-like activity. On the way,v fib alaram went off. She was given Narcan 0.4 mg because of pinpoint pupils, but did not have much response. In the ER, the patient was evaluated v fib was thought to be artifact. The patient had similar episodes in January, thought to be from polypharmacy and narcotic overdose and marijuana. As per the son, since then she is not using marijuana and she was here again on 04/08/2021 with confusion. She was on the floor confused at that time. At that time, thought to be possibly hypertensive encephalopathy. There was a plan to rule out seizures as outpatient, but as per son she did not follow up with neurology because of the snow. Currently, the patient is very drowsy, opens eyes on calling and could tell her name, but she goes back to sleep and could not get any history from the patient. She is afebrile, hemodynamically stable. Labs look okay. Urine drug screen, unremarkable.Labs for buprenorphine and oxycodone are pending. Admission Exam Per Admitting Provider GENERAL: The patient is very drowsy, opens eyes on calling and goes back to sleep, not in acute distress. VITAL SIGNS: Temperature afebrile, pulse 53, respiratory rate 13, blood pressure 194/67, oxygen 100% on room air. HEENT: Pupils are pinpoint, sluggish to react. No icterus seen. No facial droop, nontraumatic. NECK: No JVD. No neck masses. CARDIOVASCULAR: S1 and S2 heard. Regular rate and rhythm. No murmur, no gallop. RESPIRATORY SYSTEM: Normal AP diameter. No accessory muscle use. No wheezing, no crackles. ABDOMEN: Soft, bowel sounds present, no distention, CENTRAL NERVOUS SYSTEM: Drowsy, opens eyes on calling and can tell her name and goes back to sleep. Seems to be moving her extremities. EXTREMITIES: No edema, no erythema. Principal Diagnosis fall 2/2 possible seizure migraine headache adjustment disorder with mixed anxiety and depressed mood HTNive urgency Discharge Exam Gen: WD/WN, NAD, sitting in bed, A&Ox3, mild distress 2/2 headache HEENT: Normocephalic, atraumatic, mucous membranes moist Lung: Clear to Auscultation bilaterally, no wheezes/rales/rhonchi Heart: Bradycardic rate, regular rhythm, +systolic murmur, rubs, or gallops Abdomen: Soft, NT, ND +BS x 4 Extremities: no edema Skin: Warm, no rash Discharge Data Allergies Allergy/AdvReac Type Severity Reaction Status Date / Time bee venom protein (honey bee) Allergy Intermediate MOUTH Verified 04/28/21 19:03 SWELLING prednisone Allergy Intermediate SWELLING Verified 04/28/21 19:03 OG HANDS, ITCHING, RASH tomato Allergy Intermediate Hives Verified 04/28/21 19:03 Penicillins Allergy Mild RASH Verified 04/28/21 19:03 rosuvastatin Allergy Mild SEVERE H/A Verified 04/28/21 19:03 trazodone AdvReac Severe Confusion Verified 04/28/21 19:03 Biehzkv-ORF-NeC Reductase AdvReac Mild EFFECTED Verified 04/28/21 19:03 Inhibitor LIVER [Yelibje-Lcq-Xka Reductase STUDIES Inhibitor] Consultations 04/28/21 19:50 ED Decision to Admit Stat 04/29/21 08:00 Consult Cardiology Routine Consult Nephrology Routine Consult Neurology Routine 05/02/21 15:49 Consult Psychiatry Routine Ordered Studies 04/28/21 18:39 CT cervical spine wo con Stat 04/28/21 18:40 CT head/brain wo con Stat 04/30/21 09:59 MR brain wo con Routine Hospital Course (1) Fall: (2) Unresponsive episode: (3) Seizure: (4) Headache: (5) Adjustment disorder with mixed anxiety and depressed mood: (6) Anxiety: (7) Atrial fibrillation: (8) Hypertensive urgency: (9) End stage renal disease: (10) DM2 (diabetes mellitus, type 2): (11) COPD (chronic obstructive pulmonary disease): (12) Restless leg syndrome: This is a 71-year-old female with past medical history significant for DM II, hyperthyroidism 2/2 renal disease, ESRD on hemodialysis, hypothyroidism, history of COPD, chronic rhinitis, history of UT, history of paroxysmal atrial fibrillation, GERD, history of dysphagia, history of restless legs syndrome, history of hearing loss, iron deficiency anemia, history of tobacco abuse, insomnia, anxiety and depression and was brought in because of unresponsiveness.Has had similar episodes before that were thought to be due to polypharmacy but med list does not include narcotics. Utox without narcotics or bzds. Seen by Dr. Manzano of neuro - EEG came back positive for seizure spike. [place] fall at home was precipitated by seizure. MRI brain without acute intracranial abnormality is identified although patient vomited during the examination and declined to complete the study. Started on keppra 500mg daily. Will require an add'l dose of 500mg after each HD. Neuro to arrange outpatient follow up and schedule a Keppra level for Sunday. Ongoing headaches starting in neck and wrapping around to frontal aspect of head during admission. Multiple medications tried but Imitrex and Fioricet combination seemed most helpful. Will need to be addressed further by neuro in outpatient setting. Evaluated by psych during admission for anxious/depressed mood in setting of recent loss of . Plan to continue sertraline 150mg daily, Buspar discontinued. Referral made for [facility] outpatient psychiatry. Encouraged involvement of inpatient and outpatient case management/social work services to help her navigate resources for financial stressors. Initially presented with hypertensive urgency. Cardiology evaluated - Hydralazine 50mg increased to three times a day. Metoprolol decreased to 12.5mg twice daily due to ongoing bradycardia. Close cardiology follow up on Sunday. Continue dialysis treatment on Sunday, and Sunday. Patient to be discharged home with son close by. [facility] at home following. OOA referral placed. Outpatient psych services referral placed by case management. Patient hemodynamically stable at time of discharge. Total Time Total Time Spent Total Time Spent (In Minutes): 75 Discharge Plan Discharge Items Patient Disposition: Home - Self-Care Reason For Visit: UNRESPONSIVE Discharge Diagnosis: fall 2/2 possible seizure migraine headache adjustment disorder with mixed anxiety and depressed mood HTNive urgency Activity: Resume your previous activity Non-emergency contact: Primary Care Provider Call non-emergency contact if: you have any medication questions, your symptoms worsen, your pain is concerning for you and you have a fever Follow-up/Referrals: Ac Mcmanus DO [Primary Care Provider] - (Date & Time 05/10/2021 11:20 AM Provider Sharyn Alejo PA-C Department Family [facility] ) Imani Anderson CRNP [Nurse Practitioner] - (Date & Time 05/09/2021 3:00 PM Provider HERNAN Guevara Department Cardiology, [facility] ) Diet: Dialysis Renal Addtl Attending Provider Instructions: You were admitted for unresponsive episode. Per evaluation with neurology, fall at home felt to be caused by seizure. Will not be able to drive for about 6 months. Neuro follow up in clinic. Ongoing migraine type headaches - have tried multiple medications during admission. Medication regimen below - neuro clinic follow up Evaluated by psych during admission for anxious/depressed mood in setting of recent loss of . Continue with sertraline 150mg daily, Buspar discontinued. Encouragement involvement of inpatient and outpatient case management/social work services to help her navigate resources for financial stressors. Your blood pressure was very elevated on admission. Cardiology evaluated - Hydralazine 50mg increased to three times a day. Metoprolol decreased to 12.5mg twice daily. Continue dialysis treatment on Sunday, and Sunday MEDICATION CHANGES: Continue Keppra 500mg daily. Will require additional dose of 500mg after each dialysis session Imitrex 50mg up to twice daily (max 100mg) as needed for migraine headache. Fioricet 1 tab every 4 hours as needed (total daily dosage should not exceed 6 capsules) Continue sertraline 150mg daily Increase hydralazine 50mg to three times a day Decreased Metoprolol tartrate to 12.5mg twice daily Discontinue Buspar RECOMMENDATIONS FOR FOLLOW-UP: Neuro to arrange outpatient follow up and schedule a Keppra level for 05/09 Cardiology follow up with HERNAN Guevara on 05/09/2021 at3:00 PM Hospital follow up appointment with Sharyn Alejo PA-C on 05/10/2021 at 11:20 AM Neurology clinic follow up as scheduled - preferably in next 1-2 weeks. OTHER INSTRUCTIONS: Seek medical attention if you have: * temperature above 101 * chest pain or trouble breathing * abdominal pain, nausea, vomiting * diarrhea, dark stools or bloody stools * any unanswered questions or concerns Call 911 if symptoms are severe. Please take good care of yourself. Call if you have any questions or problems. You can reach a [facility] hospitalist on duty at [facility] 24 hours a day by calling [phone]. Saba Bermudez PA-C [facility] Hospitalist Pending Studies at Discharge: No Stand-Alone Forms: My [facility], Opioid Pain Management, Smoking Cessation Medications and DC Order Prescriptions: New levetiracetam [Keppra] 500 mg Tablet 500 mg PO DAILY@1800 Qty: 45 RF: 0 vseomcycoj-vxeljhzyboloy-pasi 50-325-40 mg Tablet 1 tab PO Q4H PRN (Reason: migraine headache) Qty: 30 RF: 0 metoprolol tartrate 25 mg Tablet 12.5 mg PO BID Qty: 60 RF: 0 hydralazine 50 mg Tablet 50 mg PO TID Qty: 90 RF: 0 sumatriptan succinate [Imitrex] 50 mg tablet See Rx Instructions .ROUTE .COMPLEX Qty: 14 RF: 0 Continued amlodipine [Norvasc] 10 mg tablet 10 mg PO QAM RF: 0 Tradjenta 5 mg Tablet 5 mg PO QAM RF: 0 nitroglycerin [Nitrostat] 0.4 mg Tablet, Sublingual 0.4 mg sublingual UD PRN (Reason: Angina) RF: 0 sertraline [Zoloft] 100 mg Tablet 150 mg PO QAM RF: 0 aspirin [Aspirin Low Dose] 81 mg Tablet,Delayed Release (Dr/Ec) 81 mg PO QAM RF: 0 levothyroxine 25 mcg Tablet 25 mcg PO QAM RF: 0 montelukast [Singulair] 10 mg Tablet 10 mg PO HS RF: 0 fluticasone propionate [Flonase Allergy Relief] 50 mcg/actuation [place],Suspension 1 spray INTRANASAL DAILY PRN (Reason: Nasal Congestion) RF: 0 sevelamer carbonate [Renvela] 800 mg Tablet 800 mg PO TIDM RF: 0 furosemide 40 mg tablet 40 mg PO QAM RF: 0 ipratropium-albuterol 0.5 mg-3 mg(2.5 mg base)/3 mL Solution For Nebulization 3 ml INHALATION Q4H PRN (Reason: Shortness Of Breath) RF: 0 ondansetron HCl 8 mg tablet 8 mg PO TID PRN (Reason: Nausea) RF: 0 ammonium lactate 12 % Cream 1 applic TOPICAL DAILY PRN (Reason: .) RF: 0 epinephrine 0.3 mg/0.3 mL Auto-Injector 0.3 mg IM Q4H PRN (Reason: Anaphylaxis) RF: 0 cholecalciferol (vitamin D3) [Vitamin D3] 25 mcg (1,000 unit) Capsule 25 mcg PO DAILY RF: 0 loperamide 2 mg capsule 2 mg PO DAILY RF: 0 ropinirole 0.25 mg tablet 0.5 mg PO HS RF: 0 albuterol sulfate 90 mcg/actuation HFA aerosol inhaler 2 inh INHALATION Q4H PRN (Reason: Shortness Of Breath) RF: 0 clopidogrel 75 mg tablet 75 mg PO DAILY RF: 0 melatonin 3 mg Tablet 3 mg PO HS Qty: 0 RF: 0 azelastine 137 mcg (0.1 %) aerosol,spray 2 spray INTRANASAL BID RF: 0 Breo Ellipta 100-25 mcg/dose blister with device 1 inh INHALATION DAILY RF: 0 diphenoxylate-atropine [Lomotil] 2.5-0.025 mg Tablet 1 tab PO DAILY PRN (Reason: Diarrhea) RF: 0 loratadine 10 mg Tablet 5 mg PO DAILY RF: 0 Discontinued buspirone 5 mg tablet 5 mg PO BID RF: 0 metoprolol tartrate 25 mg Tablet 25 mg PO BID Qty: 60 RF: 0 hydralazine 25 mg tablet 50 mg PO BID Qty: 0 RF: 0 azithromycin 250 mg tablet 250 mg PO UD RF: 0 Discharge Orders: Discharge Order (Routine); Ordered 05/06/21 Ordered By: Saba Bermudez Admission Data Admit Date/Time: 04/28/21 21:39 Attending Provider: Janna Root Admit Provider: Antonino Tristan Primary Care Provider: Ac Mcmanus Other Providers: Piter Cedeno ; Rom Antunez ; Henri Rivers ; Macario Acevedo ; Vinayak Hernandez ; Rad Rivera ; Gracie Ray ; Alisha Ferreira ; Imani Anderson ; Jose Odell ; Tory Evans ; Alisha Ortiz ; Destiney Browne ; Quynh Haile ; Candie Yin ; Jaren Woodall ; Saba Bermudez Other Interventions: Discharge Summary Assessment (RN) Last Done: 05/06/21 17:39 Supervising Physician Co-Signing Physician Notes I have seen and examined the patient and have discussed the case with the provider above. I agree with the assessment and plan as stated. She had great success with SQ Imitrex and was given oral Imitrex to take home with her to help with intermittent headaches. Cont outpatient PCP follow-up to check on status of headache, blood pressure check after medication changes, and referral to neurology if her headache is not any better. I physically examined her and there were no gross focal deficits or concerning findings. She was alert and oriented and denying any pain. Stable for discharge. DO Dk
== END 2021-05-06 19:09 | disposition home or self-care (01) | DRG 100 ==
LOC: ED 18:31 → EDINP 21:39 → SUATTDRO 21:39 → 2S 04-29 00:27 → 3N 05-04 19:11

== ENCOUNTER 2021-05-10 22:51 | Inpatient (IN) ==
[2021-05-10 23:30] LABS: Basophils # (auto) 0.03 K/uL (0-0.2); Basophils % (auto) 0.5 %; Eosinophils # (auto) 0.14 K/uL (0-0.5); Eosinophils % (auto) 2.4 %; Hematocrit (blood only) 33.4 % (37-47); Hemoglobin 10.5 g/dL (12.0-16.0); Immature Granulocytes # (auto) 0.01 K/uL (0.00-0.02); Immature Granulocytes % (auto) 0.2 %; Lymphocytes # (auto) 1.51 K/uL (1.2-3.4); Lymphocytes % (auto) 25.6 %; Mean Corpuscular Hemoglobin 30.9 pg (25-34); Mean Corpuscular Hgb Conc 31.4 g/dL (32-36); Mean Corpuscular Volume 98.2 fL (80-100); Mean Platelet Volume 10.7 fL (7.4-10.4); Monocytes # (auto) 0.48 K/uL (0.11-0.59); Monocytes % (auto) 8.1 %; Neutrophils # (auto) 3.72 K/uL (1.4-6.5); Neutrophils % (auto) 63.2 %; Platelet Count 149 K/uL (130-400); RDW Coefficient of Variation 16.3 % (11.5-14.5); RDW Standard Deviation 58.1 fL (36.4-46.3); White Blood Count 5.89 K/uL (4.8-10.8)
--- NOTE | 2021-05-10 23:39 | Emergency Department Note ---
Impression & Plan Weakness, [facility] NAME: MIKE NGUYEN AGE: 71 SEX: F ARRIVES VIA: Ambulance INFORMANT: Patient ED PROVIDER(S): Niya Mccauley DO CHIEF COMPLAINT: " I am hungry" PLAN: Disposition: [facility] Condition: Stable MEDICAL DECISION MAKING: This is a 71-year-old female patient who presents to the emergency department stating that she was hungry and feeling increasingly weak. The patient d escribes a migraine and that she was unable to walk and kept falling down at home. The patient states that she is unable to care for herself at home. She has a cane but cannot walk with a cane and needs a walker. She states that she has no one at home to help her prepare food. Her son lives a couple of doors down but works at night and sleeps during the day. The patient has migraines and cannot take any medications for them because she is on dialysis. The patient had called crisis stating that she had no food to eat and can no longer take care of herself at home. They urged her to call EMS. [facility] and [facility] will evaluate for further management. Triage Nursing notes reviewed and agree with them. Prior medical records reviewed Vital Signs: reviewed and remarkable for bradycardia Differential diagnosis: Unable to care for self; migraine; seizure; Diagnostics interpreted by me: ECG: sinus bradycardia at 43 with poor baseline most likely secondary to the patient moving around. Cardiac Monitoring: Sinus bradycardia at 45 Laboratory studies: See below Imaging studies: As per my interpretation Chest x-ray: Cardiomegaly; sternotomy wires; unchanged from previous chest x- rays HPI: 71/F arrives for evaluation of weakness. Patient explains that she pre sents here because she felt hungry and has a migraine and is increasingly weak. Patient told EMS that she is unable to walk. She told me that she has a cane but does not have a walker and continues to fall down while trying to use just the cane. Patient tells me she is afraid to fall and cannot be home anymore. Patient went to dialysis today and states they were unable to take any fluid off of her. Her blood sugar at home was 114. She does live alone. The patient has not had any further seizure activity since discharge from the hospital. ROS: See above HPI for pertinent positives & negatives. A total of 10 systems reviewed and were otherwise negative. PAST MEDICAL HISTORY:See Below PAST SURGICAL HISTORY:See Below FAMILY HISTORY:See Below SOCIAL HISTORY:See Below HOME MEDICATIONS:See list ALLERGIES:See list VITALS:See Below PHYSICAL EXAMINATION: HEENT: Head - normocephalic and atraumatic. Pupils are equal, round, and reactive to light. Extraocular eye muscles are intact, and sclera are anicteric. Nose - moist nasal mucosa without discharge. Mouth - moist buccal mucosa. Oropharynx is nonerythematous and there is no tonsillar exudate or edema noted. Neck: Supple; no JVD or cervical lymphadenopathy Heart: Bradycardic rate and regular rhythm. There is a normal S1 and S2 with no murmurs, clicks, or gallops appreciated. Lungs: Clear to auscultation bilaterally with no wheezes, rales, or rhonchi. Abdomen: Soft, completely nontender, nondistended, with good bowel sounds. There are no palpable pulsatile masses or hepatosplenomegaly. There is no guarding, rigidity, or rebound noted. Extremities: No evidence of cyanosis, clubbing, or edema. There are easily palpable peripheral pulses. Skin: warm and dry with poor turgor and no rashes. Neuro: The patient is awake and alert. She is oriented to date time and place. She is following commands easily. She is moving all 4 extremities. ED COURSE: Times/Reassessments: 2315: The patient was evaluated in room A10. A complete history and physical was performed. An IV lock was initiated and labs were drawn as above. A twelve-lead EKG was obtained as described above. An order was placed for continuous cardiac monitoring. The patient was in a sinus bradycardia at 43. Previous electronic medical records were reviewed. She had 2 recent visits to the emergency department. 1 resulted in admission to the hospital after she had a seizure. The patient was most interested in eating. She was given a turkey sandwich and water to drink. She would have these episodes where she would thrash about the bed. These were not seizures. She was fully awake during these episodes. She was Covid tested. I discussed the case with the [facility] hospitalist and he will evaluate for further management. The patient told me on multiple occasions that she is unable to care for self at home as she cannot get herself food and cannot get around was just a cane but needs a walker. Will need further evaluation and help through health care social worker and possible placement. Niya Mccauley DO Past Med/Surg History Medical History (Updated 05/11/21 @ 00:53 by Niya Mccauley DO) Anemia Anxiety Asthma Uses albuterol daily. Atrial fibrillation FOLLOWED BY DR. CARROLL AV fistula Depression Diabetes mellitus, type 2 oral med End stage renal disease receiving hemodiaylsis Sunday//Saturdays in [place]. Follows Dr. Gonzales ([place], [place]). Endometriosis stage 4 GERD (gastroesophageal reflux disease) Hyperlipidemia Hypertension no medications currently - experiencing hypotension Hypothyroidism Kidney failure STAGE 4 NO DIALYSIS Migraine Myocardial Infarction 2008 Osteoarthritis Stroke X 2 2013 Surgical History History of abdominal surgery UMBILICAL MESH REMOVED (NECROTIC) History of adenoidectomy History of appendectomy History of martha hole surgery 2013 AFTER CVA TO "REMOVED FLUID" History of cardiac cath 2007 AT [facility] History of cataract surgery RT/LEFT History of section X 3 History of cholecystectomy History of colonoscopy History of coronary artery bypass graft 2007 3 VESSELS AT [place] History of esophagogastroduodenoscopy (EGD) History of herniorrhaphy X 3 REPAIRS History of surgery LEFT FOOT/ANKLE FX REPAIR S/P FALL (HARDWARE) History of tonsillectomy History of tooth extraction History of total abdominal hysterectomy and bilateral salpingo-oophorectomy History of total knee replacement LEFT Hx of hand surgery LEFT HAND SURGERY "TOOK BONES OUT" S/P arteriovenous (AV) fistula creation Left arm S/P panniculectomy Family History Brother Family history of diabetes mellitus Coronary heart disease Mother Family history of diabetes mellitus Other No family history of adverse response to anesthesia Social History Smoking Status: Former smoker Tobacco Type: Cigarettes Cigarettes Per Day: 1; Second Hand Exposure: Yes; Hx Alcohol Use: No Hx Substance Use: No Preferred Language: Thai Communication Ability: Effective Visual Impairment: No Limitations 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: No Beliefs That Will Affect Care: None marital status: Single Current Living Situation: Alone How many Children do You have: 3 Other Information That Helps Us Care for You: No Feels Safe at Home: No Is there a partner from a previous relationship who is making you feel unsafe now?: No Any Concerns about Your Family Situation: No Would You Like to Speak to Someone About Your Situation: No Safety Concerns: Afraid for Self Assistive Devices: Cane Allergies Allergies Allergy/AdvReac Type Severity Reaction Status Date / Time bee venom protein (honey bee) Allergy Intermediate MOUTH Verified 05/10/21 23:44 SWELLING prednisone Allergy Intermediate SWELLING Verified 05/10/21 23:44 OG HANDS, ITCHING, RASH tomato Allergy Intermediate Hives Verified 05/10/21 23:44 Penicillins Allergy Mild RASH Verified 05/10/21 23:44 rosuvastatin Allergy Mild SEVERE H/A Verified 05/10/21 23:44 trazodone AdvReac Severe Confusion Verified 05/10/21 23:44 Vytvcck-HRJ-YhP Reductase AdvReac Mild EFFECTED Verified 05/10/21 23:44 Inhibitor LIVER [Xhnqjdl-Ulo-Irc Reductase STUDIES Inhibitor] Home Meds Home Medications Medication Instructions Recorded Confirmed aspirin 81 mg tablet,delayed 81 mg PO QAM 02/18/18 05/10/21 release (Aspirin Low Dose) fluticasone propionate 50 1 spray INTRANASAL DAILY PRN 02/18/18 05/10/21 mcg/actuation nasal spray,suspension (Flonase Allergy Relief) levothyroxine 25 mcg tablet 25 mcg PO QAM 02/18/18 05/10/21 montelukast 10 mg tablet 10 mg PO HS 02/18/18 05/10/21 (Singulair) sertraline 100 mg tablet (Zoloft) 150 mg PO QAM 02/18/18 05/10/21 sevelamer carbonate 800 mg tablet 800 mg PO TIDM 03/26/19 05/10/21 (Renvela) amlodipine 10 mg tablet (Norvasc) 10 mg PO QAM 03/23/20 05/10/21 linagliptin 5 mg tablet (Tradjenta) 5 mg PO QAM 03/23/20 05/10/21 nitroglycerin 0.4 mg sublingual 0.4 mg SUBLINGUAL UD PRN 03/23/20 05/10/21 tablet (Nitrostat) furosemide 40 mg tablet 40 mg PO QAM 01/07/21 05/10/21 ammonium lactate 12 % topical cream 1 applic TOPICAL DAILY PRN 01/25/21 05/10/21 cholecalciferol (vitamin D3) 25 25 mcg PO DAILY 01/25/21 05/10/21 mcg (1,000 unit) capsule (Vitamin D3) epinephrine 0.3 mg/0.3 mL 0.3 mg IM Q4H PRN 01/25/21 05/10/21 injection, auto-injector ipratropium 0.5 mg-albuterol 3 mg 3 ml INHALATION Q4H PRN 01/25/21 05/10/21 (2.5 mg base)/3 mL nebulization soln ondansetron HCl 8 mg tablet 8 mg PO TID PRN 01/25/21 05/10/21 albuterol sulfate 90 mcg/actuation 2 inh INHALATION Q4H PRN 04/08/21 05/10/21 aerosol inhaler azelastine 137 mcg (0.1 %) nasal 2 spray INTRANASAL BID 04/08/21 05/10/21 spray aerosol clopidogrel 75 mg tablet 75 mg PO DAILY 04/08/21 05/10/21 fluticasone furoate 100 1 inh INHALATION DAILY 04/08/21 05/10/21 mcg-vilanterol 25 mcg/dose inhalation powder (Breo Ellipta) loperamide 2 mg capsule 2 mg PO DAILY 04/08/21 05/10/21 melatonin 3 mg tablet 3 mg PO HS #0 04/08/21 05/10/21 ropinirole 0.25 mg tablet 0.5 mg PO HS 04/08/21 05/10/21 diphenoxylate-atropine 2.5 1 tab PO DAILY PRN 04/24/21 05/10/21 mg-0.025 mg tablet (Lomotil) loratadine 10 mg tablet 5 mg PO DAILY 04/24/21 05/10/21 sumatriptan succinate 50 mg tablet See Rx Instructions .ROUTE 05/10/21 05/10/21 (Imitrex) .COMPLEX PRN Previous Rx's Medication Instructions Recorded hbirpwlixv-ekzmhaokuelwz-pvsaodyh 1 tab PO Q4H PRN #30 tab 05/06/21 50 mg-325 mg-40 mg tablet hydralazine 50 mg tablet 50 mg PO TID #90 tab 05/06/21 levetiracetam 500 mg tablet 500 mg PO DAILY@1800 #45 tab 05/06/21 (Keppra) metoprolol tartrate 25 mg tablet 12.5 mg PO BID #60 tab 05/06/21 Results & Data (ED) Vital Signs Vital Signs - 24 hr 05/10/21 22:39 05/10/21 23:19 05/10/21 23:41 Temperature 36.4 C L Temperature Source Oral Pulse Rate 45 L Respiratory Rate 18 Respiratory Effort / Characteristics Non-Labored Spontaneous Blood Pressure 143/57 H Blood Pressure Mean 85 Pulse Oximetry 95 95 97 Oxygen Delivery Method Room Air Room Air Room Air Sepsis Recent Fever Within 48 Hours No Sepsis New/Unexplained Change in Mental Status No Sepsis Action Taken by Nursing No Action Required Laboratory Data Result diagrams: 05/10/21 23:08 05/10/21 23:08 Lab Results 05/10/21 05/10/21 Range/Units 23:08 23:08 WBC 5.89 (4.8-10.8) K/uL RBC 3.40 L (4.2-5.4) M/uL Hgb 10.5 L (12.0-16.0) g/dL Hct 33.4 L (37-47) % MCV 98.2 (80-100) fL MCH 30.9 (25-34) pg MCHC 31.4 L (32-36) g/dL RDW Std Deviation 58.1 H (36.4-46.3) fL RDW Coeff of Odilon 16.3 H (11.5-14.5) % Plt Count 149 (130-400) K/uL MPV 10.7 H (7.4-10.4) fL Immature Gran % (Auto) 0.2 % Neut % (Auto) 63.2 % Lymph % (Auto) 25.6 % [place] % (Auto) 8.1 % Eos % (Auto) 2.4 % Baso % (Auto) 0.5 % Neut # (Auto) 3.72 (1.4-6.5) K/uL Lymph # (Auto) 1.51 (1.2-3.4) K/uL [place] # (Auto) 0.48 (0.11-0.59) K/uL Eos # (Auto) 0.14 (0-0.5) K/uL Baso # (Auto) 0.03 (0-0.2) K/uL Immature Gran # (Auto) 0.01 (0.00-0.02) K/uL Sodium 137 (136-145) mmol/L Potassium 4.6 (3.5-5.1) mmol/L Chloride 102 (98-107) mmol/L Carbon Dioxide 27 (21-32) mmol/L Anion Gap 8 (3-11) BUN 43 H (6-23) mg/dl Creatinine 3.40 H (0.6-1.2) mg/dl Est Cr Clr Drug Dosing 14.2 ml/min Est GFR ( Amer) 14.7 ml/min Est GFR (Non-Af Amer) 12.7 ml/min BUN/Creatinine Ratio 12.6 (10-20) Glucose 122 H (70-99(Fasting)) mg/dl Calcium 8.1 L (8.5-10.1) mg/dl Total Bilirubin 0.3 (0.2-1.0) mg/dl AST 14 (13-39) U/L ALT 12 (7-52) U/L Alkaline Phosphatase 112 H (34-104) U/L Total Protein 6.0 (6.0-8.3) gm/dl Albumin 3.5 (3.4-5.0) gm/dl Globulin 2.5 (2.5-4.0) gm/dl Albumin/Globulin Ratio 1.4 (0.9-2) Discharge Plan Visit Data Chief Complaint: Weakness Stated Complaint: INCREASED WEAKNESS ED Provider: Niya Mccauley Discharge Problem: Weakness, Migraine Forms Stand Alone Forms: My [facility] Prescriptions Prescriptions: No Action amlodipine [Norvasc] 10 mg tablet 10 mg PO QAM RF: 0 Tradjenta 5 mg Tablet 5 mg PO QAM RF: 0 nitroglycerin [Nitrostat] 0.4 mg Tablet, Sublingual 0.4 mg sublingual UD PRN (Reason: Angina) RF: 0 sertraline [Zoloft] 100 mg Tablet 150 mg PO QAM RF: 0 aspirin [Aspirin Low Dose] 81 mg Tablet,Delayed Release (Dr/Ec) 81 mg PO QAM RF: 0 levothyroxine 25 mcg Tablet 25 mcg PO QAM RF: 0 montelukast [Singulair] 10 mg Tablet 10 mg PO HS RF: 0 fluticasone propionate [Flonase Allergy Relief] 50 mcg/actuation [place] ,Suspension 1 spray INTRANASAL DAILY PRN (Reason: Nasal Congestion) RF: 0 sevelamer carbonate [Renvela] 800 mg Tablet 800 mg PO TIDM RF: 0 furosemide 40 mg tablet 40 mg PO QAM RF: 0 ipratropium-albuterol 0.5 mg-3 mg(2.5 mg base)/3 mL Solution For Nebulization 3 ml INHALATION Q4H PRN (Reason: Shortness Of Breath) RF: 0 ondansetron HCl 8 mg tablet 8 mg PO TID PRN (Reason: Nausea) RF: 0 ammonium lactate 12 % Cream 1 applic TOPICAL DAILY PRN (Reason: Skin Irritation) RF: 0 epinephrine 0.3 mg/0.3 mL Auto-Injector 0.3 mg IM Q4H PRN (Reason: Anaphylaxis) RF: 0 cholecalciferol (vitamin D3) [Vitamin D3] 25 mcg (1,000 unit) Capsule 25 mcg PO DAILY RF: 0 loperamide 2 mg capsule 2 mg PO DAILY RF: 0 ropinirole 0.25 mg tablet 0.5 mg PO HS RF: 0 albuterol sulfate 90 mcg/actuation HFA aerosol inhaler 2 inh INHALATION Q4H PRN (Reason: Shortness Of Breath) RF: 0 clopidogrel 75 mg tablet 75 mg PO DAILY RF: 0 melatonin 3 mg Tablet 3 mg PO HS Qty: 0 RF: 0 azelastine 137 mcg (0.1 %) aerosol,spray 2 spray INTRANASAL BID RF: 0 Breo Ellipta 100-25 mcg/dose blister with device 1 inh INHALATION DAILY RF: 0 diphenoxylate-atropine [Lomotil] 2.5-0.025 mg Tablet 1 tab PO DAILY PRN (Reason: Diarrhea) RF: 0 loratadine 10 mg Tablet 5 mg PO DAILY RF: 0 levetiracetam [Keppra] 500 mg Tablet 500 mg PO DAILY@1800 Qty: 45 RF: 0 gszjujjlip-lupuukvacppvl-eifz 50-325-40 mg Tablet 1 tab PO Q4H PRN (Reason: migraine headache) Qty: 30 RF: 0 metoprolol tartrate 25 mg Tablet 12.5 mg PO BID Qty: 60 RF: 0 hydralazine 50 mg Tablet 50 mg PO TID Qty: 90 RF: 0 sumatriptan succinate [Imitrex] 50 mg tablet See Rx Instructions .ROUTE .COMPLEX PRN (Reason: MIGRAINE HEADACHES) RF: 0 Referrals Referrals: Ac Mcmanus DO [Primary Care Provider] - Discharge Problem: Migraine Qualifiers: Migraine type: unspecified Status migrainosus presence: without status migrainosus Intractability: intractable Qualified Code(s): G43.919 - Migraine, unspecified, intractable, without status migrainosus
[2021-05-11 00:06] LABS: Albumin Globulin Ratio 1.4 (0.9-2); Albumin Level 3.5 gm/dl (3.4-5.0); BUN Creatinine Ratio 12.6 (10-20); Bilirubin,Total 0.3 mg/dl (0.2-1.0); Calcium 8.1 mg/dl (8.5-10.1); Creatinine Clr Calc Pharmacy 14.2 ml/min; Est GFR (African American) 14.7 ml/min; Est GFR (Non-African American) 12.7 ml/min; Globulin 2.5 gm/dl (2.5-4.0); Potassium 4.6 mmol/L (3.5-5.1)
[2021-05-11] MEDS ORDERED: SUMAtriptan succinate 6 MG/0.5 ML VIAL SQ STA (01:04)
--- NOTE | 2021-05-11 01:34 | History & Physical Report ---
Date of Service May 11, 2021 Assessment & Plan (1) Lethargy: Plan: ? Secondary to home neuropsychotropic meds hx chronic diastolic heart failure, euvolemic hx CAD status post CABG Functional disability/ambulatory dysfunction Bradycardia, episodes noted during prior confinements, ? Contributory to falls hypertension, slightly elevated hyperlipidemia, statin intolerance COPD, lung status stable ESRD on HD DM2 on oral medications, well-controlled as of recent hemoglobin A1c of 6.13 April 2021 hypothyroidism, euthyroid as of today's TSH seizure disorder on Keppra Uncontrolled migraine symptoms anxiety/mood disorder, patient known to be emotionally labile Chronic anemia, hemoglobin at baseline Functional disability past tobacco abuse OBS Med telemetry. Hold home neuropsychotropic meds for now until patient more awake Hold beta-arturo given bradycardia as it may be a potential contributory factor to recurrent falls Nephrology consult Re: Dialysis management ISS BG goal 1 10-1 40 PT OT eval Social service RE placement DVT prophylaxis. Heparin subcu Full code as per patient's prior directives. Text document was generated using Auto[employer] voice recognition software. It may contain grammatical or spelling errors. Kindly contact undersigned for clarification of any documentation item in question. History of Present Illness Chief Complaint: Fall, cannot take care of self at home Primary Care Provider: Ac Mcmanus DO History obtained from patient, ER provider, and records. Limited history from patient secondary to lethargy. Medical history significant for chronic diastolic heart failure (EF 70%, TTE 2020), CAD status post CABG, hypertension, hyperlipidemia, COPD, ESRD on HD, DM2 on oral medications, hypothyroidism, seizure disorder, migraine, restless leg syndrome, anxiety/mood disorder, chronic anemia (baseline hemoglobin of 10), past tobacco abuse. Recent confinement 2 weeks ago for fall secondary to possible seizure. Patient discharged on Keppra course. Patient with persistent migraine headache symptoms since leaving the hospital as per outpatient records. Patient seen by neurologist outpatient yesterday. Headaches are probably posttraumatic migrainous as per note. Triptans contraindicated with vascular disease history. Consideration for magnesium oxide and riboflavin Rx. Patient emotional during encounters with social workers and home nursing yesterday. Patient having a lot of difficulty at home. Had fallen down from being unsteady and weak with nobody to help her at home as per note. Patient brought to ER for evaluation. Patient complaining of headache symptoms. Unable to answer questions regarding chest pain, syncope, shortness of breath, belly pain. MEDICAL HISTORY: SURGERIES: section, CABG, hysterectomy, appendectomy, tonsillectomy. bowel surgery, vascular procedures, umbilical hernia repair FAMILY HISTORY: Heart disease. PERSONAL AND SOCIAL HISTORY: Remote tobacco abuse. No chronic intake of alcohol or alcoholic beverages. 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 Allergies Allergy/AdvReac Type Severity Reaction Status Date / Time bee venom protein (honey bee) Allergy Intermediate MOUTH Verified 05/10/21 23:44 SWELLING prednisone Allergy Intermediate SWELLING Verified 05/10/21 23:44 OG HANDS, ITCHING, RASH tomato Allergy Intermediate Hives Verified 05/10/21 23:44 Penicillins Allergy Mild RASH Verified 05/10/21 23:44 rosuvastatin Allergy Mild SEVERE H/A Verified 05/10/21 23:44 trazodone AdvReac Severe Confusion Verified 05/10/21 23:44 Zsaaqrw-ZYU-UnI Reductase AdvReac Mild EFFECTED Verified 05/10/21 23:44 Inhibitor LIVER [Wskwjqe-Jna-Urc Reductase STUDIES Inhibitor] Home Medications Medication Instructions Recorded Confirmed Type aspirin 81 mg tablet,delayed 81 mg PO QAM 02/18/18 05/10/21 History release (Aspirin Low Dose) fluticasone propionate 50 1 spray INTRANASAL DAILY PRN 02/18/18 05/10/21 History mcg/actuation nasal spray,suspension (Flonase Allergy Relief) levothyroxine 25 mcg tablet 25 mcg PO QAM 02/18/18 05/10/21 History montelukast 10 mg tablet 10 mg PO HS 02/18/18 05/10/21 History (Singulair) sertraline 100 mg tablet (Zoloft) 150 mg PO QAM 02/18/18 05/10/21 History sevelamer carbonate 800 mg tablet 800 mg PO TIDM 03/26/19 05/10/21 History (Renvela) amlodipine 10 mg tablet (Norvasc) 10 mg PO QAM 03/23/20 05/10/21 History linagliptin 5 mg tablet (Tradjenta) 5 mg PO QAM 03/23/20 05/10/21 History nitroglycerin 0.4 mg sublingual 0.4 mg SUBLINGUAL UD PRN 03/23/20 05/10/21 History tablet (Nitrostat) furosemide 40 mg tablet 40 mg PO QAM 01/07/21 05/10/21 History ammonium lactate 12 % topical cream 1 applic TOPICAL DAILY PRN 01/25/21 05/10/21 History cholecalciferol (vitamin D3) 25 25 mcg PO DAILY 01/25/21 05/10/21 History mcg (1,000 unit) capsule (Vitamin D3) epinephrine 0.3 mg/0.3 mL 0.3 mg IM Q4H PRN 01/25/21 05/10/21 History injection, auto-injector ipratropium 0.5 mg-albuterol 3 mg 3 ml INHALATION Q4H PRN 01/25/21 05/10/21 History (2.5 mg base)/3 mL nebulization soln ondansetron HCl 8 mg tablet 8 mg PO TID PRN 01/25/21 05/10/21 History albuterol sulfate 90 mcg/actuation 2 inh INHALATION Q4H PRN 04/08/21 05/10/21 History aerosol inhaler azelastine 137 mcg (0.1 %) nasal 2 spray INTRANASAL BID 04/08/21 05/10/21 History spray aerosol clopidogrel 75 mg tablet 75 mg PO DAILY 04/08/21 05/10/21 History fluticasone furoate 100 1 inh INHALATION DAILY 04/08/21 05/10/21 History mcg-vilanterol 25 mcg/dose inhalation powder (Breo Ellipta) loperamide 2 mg capsule 2 mg PO DAILY 04/08/21 05/10/21 History melatonin 3 mg tablet 3 mg PO HS #0 04/08/21 05/10/21 History ropinirole 0.25 mg tablet 0.5 mg PO HS 04/08/21 05/10/21 History diphenoxylate-atropine 2.5 1 tab PO DAILY PRN 04/24/21 05/10/21 History mg-0.025 mg tablet (Lomotil) loratadine 10 mg tablet 5 mg PO DAILY 04/24/21 05/10/21 History hjasbnmhqb-yerzyyhwkvtfy-tbqoartd 1 tab PO Q4H PRN #30 tab 05/06/21 05/10/21 Rx 50 mg-325 mg-40 mg tablet hydralazine 50 mg tablet 50 mg PO TID #90 tab 05/06/21 05/10/21 Rx levetiracetam 500 mg tablet 500 mg PO DAILY@1800 #45 tab 05/06/21 05/10/21 Rx (Keppra) metoprolol tartrate 25 mg tablet 12.5 mg PO BID #60 tab 05/06/21 05/10/21 Rx sumatriptan succinate 50 mg tablet See Rx Instructions .ROUTE 05/10/21 05/10/21 History (Imitrex) .COMPLEX PRN Past Med/Surg History Medical History (Updated 05/11/21 @ 06:33 by Elroy Ramirez MD) Anemia Anxiety Asthma Uses albuterol daily. Atrial fibrillation FOLLOWED BY DR. CARROLL AV fistula Depression Diabetes mellitus, type 2 oral med End stage renal disease receiving hemodiaylsis Sunday//Saturdays in [place]. Follows Dr. Gonzales ([place], [place]). Endometriosis stage 4 GERD (gastroesophageal reflux disease) Hyperlipidemia Hypertension no medications currently - experiencing hypotension Hypothyroidism Kidney failure STAGE 4 NO DIALYSIS Migraine Myocardial Infarction 2007 Osteoarthritis Stroke X 2 2013 Surgical History History of abdominal surgery UMBILICAL MESH REMOVED (NECROTIC) History of adenoidectomy History of appendectomy History of martha hole surgery 2013 AFTER CVA TO "REMOVED FLUID" History of cardiac cath 2007 AT [facility] History of cataract surgery RT/LEFT History of section X 3 History of cholecystectomy History of colonoscopy History of coronary artery bypass graft 2008 3 VESSELS AT [place] History of esophagogastroduodenoscopy (EGD) History of herniorrhaphy X 3 REPAIRS History of surgery LEFT FOOT/ANKLE FX REPAIR S/P FALL (HARDWARE) History of tonsillectomy History of tooth extraction History of total abdominal hysterectomy and bilateral salpingo-oophorectomy History of total knee replacement LEFT Hx of hand surgery LEFT HAND SURGERY "TOOK BONES OUT" S/P arteriovenous (AV) fistula creation Left arm S/P panniculectomy Family History Brother Family history of diabetes mellitus Coronary heart disease Mother Family history of diabetes mellitus Other No family history of adverse response to anesthesia Social History Smoking Status: Former smoker Tobacco Type: Cigarettes Cigarettes Per Day: 1; Second Hand Exposure: Yes; Hx Alcohol Use: No Hx Substance Use: No Preferred Language: [place] Communication Ability: Effective Visual Impairment: No Limitations Electronic News Gathering Editor Required: No Beliefs That Will Affect Care: None marital status: Single Current Living Situation: Alone How many Children do You have: 3 Other Information That Helps Us Care for You: No Feels Safe at Home: No Is there a partner from a previous relationship who is making you feel unsafe now?: No Any Concerns about Your Family Situation: No Would You Like to Speak to Someone About Your Situation: No Safety Concerns: Afraid for Self Assistive Devices: Cane Review of Systems Review of Systems: Could not be reliably obtained due to lethargy Physical Exam Physical Exam: GENERAL: Lethargic, unkempt, no respiratory distress SKIN: Pallor,, warm HEENT: Pale palpebral conjunctivae, no ptosis, moist buccal mucosa, tongue sticking out of the mouth. NECK : Supple, no tenderness CHEST : Decreased breath sounds, no tenderness HEART : Bradycardic, no obvious murmurs ABDOMEN: Some distention, nontender EXTREMITIES : Minimal LE swelling, no LE tenderness, no other conspicuous deformities noted NEUROLOGIC : Lethargic, mouth asymmetry with tongue sticking out, gait and stance not assessed Results & Data Results & Data ([facility]) Vital Signs (Past 12 Hours) Vital Signs Temp Pulse Resp BP Pulse Ox 05/11/21 01:00 48 L 15 134/54 L 93 05/11/21 00:31 45 L 15 113/44 L 94 05/11/21 00:01 46 L 15 121/50 L 95 05/10/21 23:41 97 05/10/21 23:32 107/90 05/10/21 23:19 95 05/10/21 22:39 36.4 C L 45 L 18 143/57 H 95 Laboratory Results Laboratory Results WBC 5.89 K/uL (4.8-10.8) 05/10/21 23:08 RBC 3.40 M/uL (4.2-5.4) L 05/10/21 23:08 Hgb 10.5 g/dL (12.0-16.0) L 05/10/21 23:08 Hct 33.4 % (37-47) L 05/10/21 23:08 MCV 98.2 fL (80-100) 05/10/21 23:08 MCH 30.9 pg (25-34) 05/10/21 23:08 MCHC 31.4 g/dL (32-36) L 05/10/21 23:08 RDW Std Deviation 58.1 fL (36.4-46.3) H 05/10/21 23:08 RDW Coeff of Odilon 16.3 % (11.5-14.5) H 05/10/21 23:08 Plt Count 149 K/uL (130-400) 05/10/21 23:08 MPV 10.7 fL (7.4-10.4) H 05/10/21 23:08 Immature Gran % (Auto) 0.2 % 05/10/21 23:08 Neut % (Auto) 63.2 % 05/10/21 23:08 Lymph % (Auto) 25.6 % 05/10/21 23:08 [place] % (Auto) 8.1 % 05/10/21 23:08 Eos % (Auto) 2.4 % 05/10/21 23:08 Baso % (Auto) 0.5 % 05/10/21 23:08 Neut # (Auto) 3.72 K/uL (1.4-6.5) 05/10/21 23:08 Lymph # (Auto) 1.51 K/uL (1.2-3.4) 05/10/21 23:08 [place] # (Auto) 0.48 K/uL (0.11-0.59) 05/10/21 23:08 Eos # (Auto) 0.14 K/uL (0-0.5) 05/10/21 23:08 Baso # (Auto) 0.03 K/uL (0-0.2) 05/10/21 23:08 Immature Gran # (Auto) 0.01 K/uL (0.00-0.02) 05/10/21 23:08 Sodium 137 mmol/L (136-145) 05/10/21 23:08 Potassium 4.6 mmol/L (3.5-5.1) 05/10/21 23:08 Chloride 102 mmol/L (98-107) 05/10/21 23:08 Carbon Dioxide 27 mmol/L (21-32) 05/10/21 23:08 Anion Gap 8 (3-11) 05/10/21 23:08 BUN 43 mg/dl (6-23) H 05/10/21 23:08 Creatinine 3.40 mg/dl (0.6-1.2) H 05/10/21 23:08 Est Cr Clr Drug Dosing 14.2 ml/min 05/10/21 23:08 Est GFR ( Amer) 14.7 ml/min 05/10/21 23:08 Est GFR (Non-Af Amer) 12.7 ml/min 05/10/21 23:08 BUN/Creatinine Ratio 12.6 (10-20) 05/10/21 23:08 Glucose 122 mg/dl (70-99(Fasting)) H 05/10/21 23:08 Calcium 8.1 mg/dl (8.5-10.1) L 05/10/21 23:08 Total Bilirubin 0.3 mg/dl (0.2-1.0) 05/10/21 23:08 AST 14 U/L (13-39) 05/10/21 23:08 ALT 12 U/L (7-52) 05/10/21 23:08 Alkaline Phosphatase 112 U/L (34-104) H 05/10/21 23:08 Total Protein 6.0 gm/dl (6.0-8.3) 05/10/21 23:08 Albumin 3.5 gm/dl (3.4-5.0) 05/10/21 23:08 Globulin 2.5 gm/dl (2.5-4.0) 05/10/21 23:08 Albumin/Globulin Ratio 1.4 (0.9-2) 05/10/21 23:08 SARS-CoV-2, RNA, NAAT NEGATIVE (NEGATIVE) 05/11/21 00:[address] head initial read: No intracranial hemorrhage. No significant mass effect or midline shift. No evidence for cortical infarct or appreciable alteration fromthe examination 04/08/2021. Mild periventricular deep white matter hypodense changes are stable. The paranasal sinuses and mastoid air cells are well-aerated. Chest x-ray as per my interpretation cardiomegaly, atelectasis EKG as per my interpretation : Rate 45, sinus bradycardia, J-point elevation septal leads, PVCs
[2021-05-11] MEDS ORDERED: DEXTROSE 50% 50 ML SYRINGE IV PRN (03:50)
[2021-05-11] MEDS ORDERED: FLUTICASONE PROPIONATE NA SPR 16 GM BTL PRN (03:50)
[2021-05-11] MEDS ORDERED: GLUCOSE 10 TABS/TUBE PO PRN (03:50)
[2021-05-11] MEDS ORDERED: GLUCAGON FOR INJ 1 MG VIAL SQ PRN (03:50)
[2021-05-11] MEDS ORDERED: CARBOHYDRATES FOR HYPOGLYCEMIA PO PRN (03:50)
[2021-05-11] MEDS ORDERED: GLUCOSE 40% GEL 15 GM TUBE PO PRN (03:50)
[2021-05-11] MEDS ORDERED: PROMETHAZINE HCL 12.5 MG in SODIUM CHLORIDE 0.9% 50 ML IV PRN (03:50)
[2021-05-11] MEDS: INSULIN ASPART PER UNIT SC SCH ×6 (04:39→20:57)
[2021-05-11 05:32] LABS: Basophils # (auto) 0.01 K/uL (0-0.2); Basophils % (auto) 0.2 %; Eosinophils # (auto) 0.14 K/uL (0-0.5); Hematocrit (blood only) 33.6 % (37-47); Hemoglobin 10.7 g/dL (12.0-16.0); Immature Granulocytes # (auto) 0.01 K/uL (0.00-0.02); Immature Granulocytes % (auto) 0.2 %; Lymphocytes # (auto) 1.53 K/uL (1.2-3.4); Mean Corpuscular Hgb Conc 31.8 g/dL (32-36); Mean Corpuscular Volume 97.4 fL (80-100); Mean Platelet Volume 10.3 fL (7.4-10.4); Monocytes # (auto) 0.43 K/uL (0.11-0.59); Monocytes % (auto) 9.3 %; Neutrophils # (auto) 2.52 K/uL (1.4-6.5); Neutrophils % (auto) 54.3 %; Platelet Count 141 K/uL (130-400); RDW Coefficient of Variation 16.3 % (11.5-14.5); RDW Standard Deviation 57.5 fL (36.4-46.3); Red Blood Count 3.45 M/uL (4.2-5.4); White Blood Count 4.64 K/uL (4.8-10.8)
[2021-05-11 05:52] LABS: BUN Creatinine Ratio 13.1 (10-20); Calcium 7.8 mg/dl (8.5-10.1); Creatinine Clr Calc Pharmacy 13.5 ml/min; Est GFR (African American) 13.8 ml/min; Est GFR (Non-African American) 11.9 ml/min; Potassium 4.5 mmol/L (3.5-5.1)
[2021-05-11] MEDS: LEVOTHYROXINE SODIUM 25 MCG TABLET PO SCH (05:59)
[2021-05-11] MEDS: HEPARIN SOD 5,000 UNIT/0.5 ML VIAL SQ SCH ×3 (05:59→20:56)
[2021-05-11] MEDS: ACETAMINOPHEN 325 MG TAB PO PRN ×2 (05:59→10:49)
--- NOTE | 2021-05-11 07:13 | CT Scan Report ---
HEAD CT NONCONTRAST CT DOSE: HISTORY: Altered mental status. TECHNIQUE: Multiaxial CT images of the head were performed without the use of intravenous contrast. A utomated exposure control was utilized for this study. A dose lowering technique was utilized adheri ng to the principles of ALARA. Comparison: Head CT 04/28/2021. Findings: The paranasal sinuses and mastoid air cells are clear. The calvarium and skull base are int act. There is no mass, hematoma, midline shift, acute infarct. White matter hypodensity is nonspecifi c but suggestive of microvascular ischemic change. The ventricles and sulci demonstrate mild age-rela drea involutional changes. Impression: No significant change compared to the prior study. No acute intracranial abnormality. ACT 112: Negative or not required by law. Electronically signed by: Jose Steinberg M.D. 05/11/2021 7:11 AM
[2021-05-11 07:23] LABS: Appearance Urine Turbid (Clear); Bacteria Urine Automated 3+ (Negative); Bilirubin Urine Negative (Negative); Blood Urine Negative (Negative); Color Urine Yellow; Epithelial Cell Urine Auto >30 /lpf (0-5); Glucose Urine UA Negative (Negative); Ketones Urine Negative (Negative); Leukocyte Esterase Urine 2+ (Negative); Nitrite Urine Negative (Negative); Protein Urine 3+ (Negative); Specific Gravity Urine 1.016 (1.000-1.030); Urobilinogen Urine Negative (Negative); WBC Urine Automated >30 /hpf (0-5)
--- NOTE | 2021-05-11 07:56 | XRay Report ---
XR chest 1V portable CLINICAL HISTORY: weakness. Evaluate cardiopulmonary status COMPARISON STUDY: 04/28/2021 TECHNIQUE: 1 view of the chest FINDINGS: Single frontal view of the chest demonstrates the heart to again be mildly enlarged status post previ ous cardiothoracic surgery. There is a decreased inspiratory effort with elevation of the hemidiaphra gms and crowding of the bronchovascular markings at the lung bases and centrally. The lungs are clear of alveolar opacities. There is no evidence for pleural effusion. There is no evidence for vascular congestion. There is no acute osseous pathology. IMPRESSION: There is a decreased inspiratory effort with otherwise no acute chest disease. ACT 112: Negative or not required by law. Electronically signed by: Emiliano Byrnes M.D. 05/11/2021 7:55 AM
[2021-05-11 08:27] LABS: Lyme Ab IgG w/WB Rflx Negative (Negative); Lyme Ab IgM w/WB Rflx Negative (Negative)
[2021-05-11] MEDS: amLODIPine BESYLATE 5 MG TAB PO SCH (08:50)
[2021-05-11] MEDS: SEVELAMER HCL 800 MG TABLET PO SCH ×3 (08:50→18:20)
[2021-05-11] MEDS: AZELASTINE HCL 0.1% NASAL 200 SPRAYS/27,400 MCG BTL NAE SCH ×2 (08:51→20:59)
[2021-05-11] MEDS: CLOPIDOGREL BISULFATE 75 MG TAB PO SCH (08:51)
[2021-05-11] MEDS: hydrALAZINE TAB 50 MG TAB PO SCH ×3 (08:51→20:55)
[2021-05-11] MEDS: ASPIRIN 81 MG ECTAB PO SCH (08:51)
[2021-05-11] MEDS: LORATADINE 10 MG TAB PO SCH (08:52)
[2021-05-11] MEDS: FUROSEMIDE 40 MG TAB PO SCH (08:52)
[2021-05-11] MEDS: FLUTICASONE/VILANTEROL 100/25MCG 14 PUFFS/INHALER INH SCH (08:52)
[2021-05-11] MEDS ORDERED: AZELASTINE HCL 0.1% NASAL 200 SPRAYS/27,400 MCG BTL NAE SCH (09:00)
[2021-05-11] MEDS ORDERED: SERTRALINE HCL 50 MG TABLET PO SCH (09:00)
--- NOTE | 2021-05-11 11:31 | Electrocardiogram Report ---
Test Reason : Blood Pressure : / mmHG Vent. Rate : 043 BPM Atrial Rate : 043 BPM P-R Int : 166 ms QRS Dur : 076 ms QT Int : 496 ms P-R-T Axes : 067 059 073 degrees QTc Int : 419 ms Marked sinus bradycardia with sinus arrhythmia Nonspecific ST abnormality Abnormal ECG When compared with ECG of 30-APR-2021 09:00, Nonspecific T wave abnormality no longer evident in Lateral leads Confirmed by Luis Carranza ([id number]) on 05/11/2021 11:31:38 AM Referred By: REFERRED SELF Confirmed By:Luis Carranza
[2021-05-11] MEDS: HYDROmorphone INJ 0.5 MG/0.5 ML SYR IV PRN (12:41)
[2021-05-11] MEDS ORDERED: SUMAtriptan succinate 50 MG TAB PO PRN (16:57)
--- NOTE | 2021-05-11 17:06 | Communication Note ---
Date of Service: May 11, 2021 71-year-old female with significant past medical history including end-stage renal disease on hemodialysis, recurrent episodes of decreased responsiveness ,recent diagnosis of seizure and other significant medical conditions as mentioned in H&P has been admitted with weak legs and migrainous headache. She has been feeling much better since admission and complains to have ongoing headache. She was prescribed Imitrex for headache on top of as needed Dilaudid. She remains stable and will have full progress note tomorrow. Dr Darwin harrington
[2021-05-11] MEDS: levETIRAcetam 500 MG TAB PO SCH (18:30)
--- NOTE | 2021-05-11 19:19 | Nephrology Consultation ---
Date of Consultation May 11, 2021 Assessment & Plan (1) End stage renal disease: No urgent HD needed today based on evaluation of volume status, chemistries. challenging CARL problems for this pt > defer to primary on that -HD tomorrow per routine -daily bmp -routine anemia meds and low dose heparin w/ HD History of Present Illness Reason for Consultation: ESRD on HD Requesting Physician: Dr Pascual Attending Physician: Nolvia Salter MD History of Present Illness 71 y/o F whom I'm asked to evaluate for dialysis needs was admitted overnight after presenting with lethargy. Her son whom she lives with found in her in bathroom w/ some shaking and tremors in faeces; no response to narcan given by EMS; concern for VFib in the field but this was deemed artifact in ER. PMH includes TRSat HD at [facility] via AVF, CABG/CAD, pAF not on AC,HTN, COPD, DM w/ retinopathy, hypothyroid, GERD, RLS, anxiety/depression, seizure disorder, migraines, RLS. Has had polypharmacy and narcotic use in past. Admitted here 04/29-05/06 for fall d/t possible seizure and w/ HTN urgency that admission; also admitted here in January w/ encephalopathy attributed to s ubstance use/meds and again late march w/ confusion also presented being found on the floor and attributed to hypertensive encephalopathy. She missed dialysis the day after hospital d/c d/t fatigue; she did have a full treatment yesterday with 4 L UF. Currently she is agitated and crying for help; worried about severe headache on my eval at approx 1030 this am. Allergies Allergy/AdvReac Type Severity Reaction Status Date / Time bee venom protein (honey bee) Allergy Intermediate MOUTH Verified 05/10/21 23:44 SWELLING prednisone Allergy Intermediate SWELLING Verified 05/10/21 23:44 OG HANDS, ITCHING, RASH tomato Allergy Intermediate Hives Verified 05/10/21 23:44 Penicillins Allergy Mild RASH Verified 05/10/21 23:44 rosuvastatin Allergy Mild SEVERE H/A Verified 05/10/21 23:44 trazodone AdvReac Severe Confusion Verified 05/10/21 23:44 Bsptszv-RDA-SbZ Reductase AdvReac Mild EFFECTED Verified 05/10/21 23:44 Inhibitor LIVER [Lqeguwx-Tov-Yju Reductase STUDIES Inhibitor] Home Medications Medication Instructions Recorded Confirmed Type aspirin 81 mg tablet,delayed 81 mg PO QAM 02/18/18 05/10/21 History release (Aspirin Low Dose) fluticasone propionate 50 1 spray INTRANASAL DAILY PRN 02/18/18 05/10/21 History mcg/actuation nasal spray,suspension (Flonase Allergy Relief) levothyroxine 25 mcg tablet 25 mcg PO QAM 02/18/18 05/10/21 History montelukast 10 mg tablet 10 mg PO HS 02/18/18 05/10/21 History (Singulair) sertraline 100 mg tablet (Zoloft) 150 mg PO QAM 02/18/18 05/10/21 History sevelamer carbonate 800 mg tablet 800 mg PO TIDM 03/26/19 05/10/21 History (Renvela) amlodipine 10 mg tablet (Norvasc) 10 mg PO QAM 03/23/20 05/10/21 History linagliptin 5 mg tablet (Tradjenta) 5 mg PO QAM 03/23/20 05/10/21 History nitroglycerin 0.4 mg sublingual 0.4 mg SUBLINGUAL UD PRN 03/23/20 05/10/21 History tablet (Nitrostat) furosemide 40 mg tablet 40 mg PO QAM 01/07/21 05/10/21 History ammonium lactate 12 % topical cream 1 applic TOPICAL DAILY PRN 01/25/21 05/10/21 History cholecalciferol (vitamin D3) 25 25 mcg PO DAILY 01/25/21 05/10/21 History mcg (1,000 unit) capsule (Vitamin D3) epinephrine 0.3 mg/0.3 mL 0.3 mg IM Q4H PRN 01/25/21 05/10/21 History injection, auto-injector ipratropium 0.5 mg-albuterol 3 mg 3 ml INHALATION Q4H PRN 01/25/21 05/10/21 History (2.5 mg base)/3 mL nebulization soln ondansetron HCl 8 mg tablet 8 mg PO TID PRN 01/25/21 05/10/21 History albuterol sulfate 90 mcg/actuation 2 inh INHALATION Q4H PRN 04/08/21 05/10/21 History aerosol inhaler azelastine 137 mcg (0.1 %) nasal 2 spray INTRANASAL BID 04/08/21 05/10/21 History spray aerosol clopidogrel 75 mg tablet 75 mg PO DAILY 04/08/21 05/10/21 History fluticasone furoate 100 1 inh INHALATION DAILY 04/08/21 05/10/21 History mcg-vilanterol 25 mcg/dose inhalation powder (Breo Ellipta) loperamide 2 mg capsule 2 mg PO DAILY 04/08/21 05/10/21 History melatonin 3 mg tablet 3 mg PO HS #0 04/08/21 05/10/21 History ropinirole 0.25 mg tablet 0.5 mg PO HS 04/08/21 05/10/21 History diphenoxylate-atropine 2.5 1 tab PO DAILY PRN 04/24/21 05/10/21 History mg-0.025 mg tablet (Lomotil) loratadine 10 mg tablet 5 mg PO DAILY 04/24/21 05/10/21 History xbocnxcsqx-aqjbwohtjzqnu-ywlggqee 1 tab PO Q4H PRN #30 tab 05/06/21 05/10/21 Rx 50 mg-325 mg-40 mg tablet hydralazine 50 mg tablet 50 mg PO TID #90 tab 05/06/21 05/10/21 Rx levetiracetam 500 mg tablet 500 mg PO DAILY@1800 #45 tab 05/06/21 05/10/21 Rx (Keppra) metoprolol tartrate 25 mg tablet 12.5 mg PO BID #60 tab 05/06/21 05/10/21 Rx sumatriptan succinate 50 mg tablet See Rx Instructions .ROUTE 05/10/21 05/10/21 History (Imitrex) .COMPLEX PRN Patient History Medical History Anemia Anxiety Asthma Uses albuterol daily. Atrial fibrillation FOLLOWED BY DR. GLEN RIVAS fistula Depression Diabetes mellitus, type 2 oral med End stage renal disease receiving hemodiaylsis Sunday//Saturdays in [place]. Follows Dr. Gonzales ([place], [place]). Endometriosis stage 4 GERD (gastroesophageal reflux disease) Hyperlipidemia Hypertension no medications currently - experiencing hypotension Hypothyroidism Kidney failure STAGE 4 NO DIALYSIS Migraine Myocardial Infarction 2007 Osteoarthritis Stroke X 2 2013 Surgical History History of abdominal surgery UMBILICAL MESH REMOVED (NECROTIC) History of adenoidectomy History of appendectomy History of martha hole surgery 2014 AFTER CVA TO "REMOVED FLUID" History of cardiac cath 2007 AT [facility] History of cataract surgery RT/LEFT History of section X 3 History of cholecystectomy History of colonoscopy History of coronary artery bypass graft 2007 3 VESSELS AT [place] [place] History of esophagogastroduodenoscopy (EGD) History of herniorrhaphy X 3 REPAIRS History of surgery LEFT FOOT/ANKLE FX REPAIR S/P FALL (HARDWARE) History of tonsillectomy History of tooth extraction History of total abdominal hysterectomy and bilateral salpingo-oophorectomy History of total knee replacement LEFT Hx of hand surgery LEFT HAND SURGERY "TOOK BONES OUT" S/P arteriovenous (AV) fistula creation Left arm S/P panniculectomy Family History Brother Family history of diabetes mellitus Coronary heart disease Mother Family history of diabetes mellitus Other No family history of adverse response to anesthesia Social History Smoking Status: Former smoker Tobacco Type: Cigarettes Cigarettes Per Day: 1; Second Hand Exposure: Yes; Hx Alcohol Use: No Hx Substance Use: No Preferred Language: Lithuanian Communication Ability: Effective Visual Impairment: No Limitations Customer Resolution Specialist Required: No Beliefs That Will Affect Care: None marital status: Single Current Living Situation: Alone How many Children do You have: 3 Other Information That Helps Us Care for You: No Feels Safe at Home: No Is there a partner from a previous relationship who is making you feel unsafe now?: No Any Concerns about Your Family Situation: No Would You Like to Speak to Someone About Your Situation: No Safety Concerns: Afraid for Self Assistive Devices: Cane Review of Systems Review of Systems: All systems reviewed & are unremarkable except as noted in HPI & below Physical Exam Constitutional: well developed, well nourished and + acute distress (mild) Eyes: EOM intact bilaterally ENMT: Ears: no external ear abnormality Nose: no external nose abnormality Mouth: + dry oral mucous membranes Neck: no nuchal rigidity Respiratory: normal respiratory effort Auscultation: + diminished lung kuldeep nds Cardiovascular: Extremities: + AV fistula (+ t/b) Gastrointestinal (Abdomen): Inspection/Auscultation: normal bowel sounds Percussion/Palpation: abdomen soft; abdomen nontender Musculoskeletal: Extremities: strength 5/5 throughout Skin: no rashes, warm and dry Neurologic: de paz, fluent speech, no tremor Psychiatric: Orientation: oriented to person and oriented to place Affect: + anxious affect and + tearful affect Results & Data ([facility]) Vital Signs (Past 12 Hours) Vital Signs Pulse Resp BP Pulse Ox 05/11/21 13:55 54 L 123/65 95 05/11/21 08:45 45 L 20 147/65 H 97 Laboratory Results 05/11/21 05:14 05/11/21 05:14 Diagnostic Findings No acute process or interval change on CXR or head CT
[2021-05-11] MEDS: MONTELUKAST SODIUM 10 MG TABLET PO SCH (20:56)
[2021-05-11] MEDS ORDERED: MELATONIN 3 MG TAB PO SCH (21:00)
[2021-05-11] MEDS ORDERED: rOPINIRole HCL 0.25 MG TABLET PO SCH (21:00)
[2021-05-12] MEDS: ACETAMINOPHEN 325 MG TAB PO PRN (00:35)
[2021-05-12] MEDS ORDERED: rOPINIRole HCL 0.25 MG TABLET PO STA (04:36)
[2021-05-12] MEDS: HEPARIN SOD 5,000 UNIT/0.5 ML VIAL SQ SCH ×3 (05:25→20:24)
[2021-05-12] MEDS: LEVOTHYROXINE SODIUM 25 MCG TABLET PO SCH (05:25)
[2021-05-12 06:59] LABS: Basophils # (auto) 0.02 K/uL (0-0.2); Basophils % (auto) 0.3 %; Eosinophils # (auto) 0.11 K/uL (0-0.5); Eosinophils % (auto) 1.5 %; Hematocrit (blood only) 33.5 % (37-47); Hemoglobin 10.6 g/dL (12.0-16.0); Immature Granulocytes # (auto) 0.02 K/uL (0.00-0.02); Immature Granulocytes % (auto) 0.3 %; Lymphocytes # (auto) 1.32 K/uL (1.2-3.4); Lymphocytes % (auto) 18.3 %; Mean Corpuscular Hemoglobin 30.7 pg (25-34); Mean Corpuscular Hgb Conc 31.6 g/dL (32-36); Mean Corpuscular Volume 97.1 fL (80-100); Mean Platelet Volume 10.2 fL (7.4-10.4); Monocytes # (auto) 0.39 K/uL (0.11-0.59); Monocytes % (auto) 5.4 %; Neutrophils # (auto) 5.34 K/uL (1.4-6.5); Neutrophils % (auto) 74.2 %; Platelet Count 161 K/uL (130-400); RDW Standard Deviation 57.1 fL (36.4-46.3); Red Blood Count 3.45 M/uL (4.2-5.4)
[2021-05-12] MEDS ORDERED: HEPARIN SOD (PORCINE) 1000 UNIT/ML IV ONE (07:04)
[2021-05-12] MEDS ORDERED: SODIUM CHLORIDE 0.9% 1000ML 1,000 ML IV PRN (07:04)
[2021-05-12 07:28] LABS: Calcium 7.7 mg/dl (8.5-10.1); Creatinine Clr Calc Pharmacy 11.2 ml/min; Est GFR (African American) 11.1 ml/min; Est GFR (Non-African American) 9.6 ml/min; Potassium 4.9 mmol/L (3.5-5.1)
[2021-05-12] MEDS: CLOPIDOGREL BISULFATE 75 MG TAB PO SCH (08:39)
[2021-05-12] MEDS: ASPIRIN 81 MG ECTAB PO SCH (08:39)
[2021-05-12] MEDS: SEVELAMER HCL 800 MG TABLET PO SCH ×3 (08:39→17:58)
[2021-05-12] MEDS: FUROSEMIDE 40 MG TAB PO SCH (08:40)
[2021-05-12] MEDS: LORATADINE 10 MG TAB PO SCH (08:40)
[2021-05-12] MEDS: AZELASTINE HCL 0.1% NASAL 200 SPRAYS/27,400 MCG BTL NAE SCH ×2 (08:41→20:24)
[2021-05-12] MEDS: FLUTICASONE/VILANTEROL 100/25MCG 14 PUFFS/INHALER INH SCH (08:41)
[2021-05-12] MEDS: INSULIN ASPART PER UNIT SC SCH ×4 (08:48→20:23)
[2021-05-12] MEDS: amLODIPine BESYLATE 5 MG TAB PO SCH (08:49)
[2021-05-12] MEDS: hydrALAZINE TAB 50 MG TAB PO SCH ×3 (08:49→20:23)
[2021-05-12] MEDS: HEPARIN SOD (PORCINE) 1000 UNIT/ML IV SCH ×2 (12:11→12:12)
--- NOTE | 2021-05-12 12:38 | Dialysis Progress Note ---
Date of Service May 12, 2021 Assessment & Plan (1) End stage renal disease: Plan: Marked HTN today at start of HD > will be more aggressive with fluid removal. challenging CARL problems for this pt >cont to defer to primary on that -next HD Sat per routine -daily bmp -today no anemia meds but did give low dose heparin w/ HD -cont current bp meds and binder Admission and Anticipated Discharge Date Admission Date: May 11, 2021 Subjective resting more comfortably when I saw her on dialysis this aM at approx 1020 Review of Systems Review of Systems: All systems reviewed & are unremarkable except as noted in Subjective Physical Exam Constitutional: well developed and well nourished; no acute distress Eyes: EOM intact bilaterally ENMT: Ears: no external ear abnormality Nose: no external nose abnormality Mouth: + dry oral mucous membranes Neck: no nuchal rigidity Respiratory: normal respiratory effort Auscultation: + diminished lung sounds Cardiovascular: Extremities: + AV fistula (+ t/b) Gastrointestinal (Abdomen): Inspection/Auscultation: normal bowel sounds Percussion/Palpation: abdomen soft; abdomen nontender Musculoskeletal: Extremities: strength 5/5 throughout Skin: no rashes, warm and dry Psychiatric: Orientation: oriented to person and oriented to place Results & Data ([facility]) Vital Signs (Past 12 Hours) Vital Signs Temp Pulse Pulse Pulse Resp BP BP 05/12/21 12:20 64 120/69 05/12/21 12:00 61 129/68 05/12/21 11:40 60 154/78 H 05/12/21 11:20 58 L 177/83 H 05/12/21 11:00 54 L 164/81 H 05/12/21 10:40 54 L 153/75 H 05/12/21 10:20 52 L 157/76 H 05/12/21 10:00 58 L 180/80 H 05/12/21 09:40 53 L 193/89 H 05/12/21 09:20 57 L 188/85 H 05/12/21 09:06 57 L 182/73 H 05/12/21 08:59 36.6 C 60 05/12/21 08:00 37.2 C 60 20 179/69 H 05/12/21 07:11 63 05/12/21 03:20 36.7 C 52 L 20 148/57 H Pulse Ox 05/12/21 12:20 05/12/21 12:00 05/12/21 11:40 05/12/21 11:20 05/12/21 11:00 05/12/21 10:40 05/12/21 10:20 05/12/21 10:00 05/12/21 09:40 05/12/21 09:20 05/12/21 09:06 05/12/21 08:59 05/12/21 08:00 95 05/12/21 07:11 05/12/21 03:20 92 Laboratory Results 05/12/21 06:32 05/12/21 06:32
[2021-05-12] MEDS: HYDROmorphone INJ 0.5 MG/0.5 ML SYR IV PRN ×2 (12:49→19:10)
--- NOTE | 2021-05-12 12:52 | Neurology Consultation ---
Date of Consultation May 12, 2021 Assessment & Plan (1) Migraine: 1. stop imitrex - not appropriate in a patient with vascular disease 2. start amitriptyline 10 mg hs - will need to stay low dose. on SSRIs avoid seratonin syndrome 3. tylenol prn would not use narcotics for headaches 4. could add riboflavin 400 mg and mg ox 400 mg if ok'd by nephrology 5. if cleared by nephrology could use one time dose of Depakote IV 500 mg to break headache cycle (2) Seizure: 1. continue Keppra 500 mg daily and 500 mg after dialysis (3) Weakness: 1. PT/OT for evaluation 2. she can not live alone- needs certified social workers in health care/care mgt team to help with placement or 30/10 supervision Supervising Physician Co-Signing Physician Notes Patient known to me in the past for encephalopathy due to polypharmacy. Admitted with failure to thrive. Following with neurology for chronic headaches. If headaches persist despite plan as outlined recently by Dr. Manzano may need to consider Botox as outpatient. History of Present Illness Reason for Consultation: severe headache Requesting Physician: Nolvia Salter MD Attending Physician: Nolvia Salter MD History of Present Illness Mimi is a 70 year old female with PMH weakness, anxiety, seizure, headache, HTN, falls, afib RVR, chronic renal failure on dialysis, DM2. She presented to [facility] ED feeling weak and hungry and complaining of a headache. She does not feel she can care for herself. She tried to walk with a cane but was unable to do so. her son lives a couple of doors down but works nights and sleeps during the day. She saw Dr Manzano in our office 05/10/21 for headache and found she was on imitrex and wanted it stopped.The imitrex is not appropriate in patients with vascular disease. he also recommended starting amitriptyline neither was done. On her previous admission she was started on Keppra 500 mg and an additional 500 mg after dialysis because she had several episode which appeared to be seizure like events. There have been multiple admissions to the hospital. care mgt needs to be involved for placement needing increase supervision and care. She is still grieving over the loss of her and son denies CP, SOB, abdominal pain, +headache Allergies Allergy/AdvReac Type Severity Reaction Status Date / Time bee venom protein (honey bee) Allergy Intermediate MOUTH Verified 05/10/21 23:44 SWELLING prednisone Allergy Intermediate SWELLING Verified 05/10/21 23:44 OG HANDS, ITCHING, RASH tomato Allergy Intermediate Hives Verified 05/10/21 23:44 Penicillins Allergy Mild RASH Verified 05/10/21 23:44 rosuvastatin Allergy Mild SEVERE H/A Verified 05/10/21 23:44 trazodone AdvReac Severe Confusion Verified 05/10/21 23:44 Uhmdlfx-KOK-MiL Reductase AdvReac Mild EFFECTED Verified 05/10/21 23:44 Inhibitor LIVER [Kthnrkw-Jtn-Khy Reductase STUDIES Inhibitor] Home Medications Medication Instructions Recorded Confirmed Type aspirin 81 mg tablet,delayed 81 mg PO QAM 02/18/18 05/10/21 History release (Aspirin Low Dose) fluticasone propionate 50 1 spray INTRANASAL DAILY PRN 02/18/18 05/10/21 History mcg/actuation nasal spray,suspension (Flonase Allergy Relief) levothyroxine 25 mcg tablet 25 mcg PO QAM 02/18/18 05/10/21 History montelukast 10 mg tablet 10 mg PO HS 02/18/18 05/10/21 History (Singulair) sertraline 100 mg tablet (Zoloft) 150 mg PO QAM 02/18/18 05/10/21 History sevelamer carbonate 800 mg tablet 800 mg PO TIDM 03/26/19 05/10/21 History (Renvela) amlodipine 10 mg tablet (Norvasc) 10 mg PO QAM 03/23/20 05/10/21 History linagliptin 5 mg tablet (Tradjenta) 5 mg PO QAM 03/23/20 05/10/21 History nitroglycerin 0.4 mg sublingual 0.4 mg SUBLINGUAL UD PRN 03/23/20 05/10/21 History tablet (Nitrostat) furosemide 40 mg tablet 40 mg PO QAM 01/07/21 05/10/21 History ammonium lactate 12 % topical cream 1 applic TOPICAL DAILY PRN 01/25/21 05/10/21 History cholecalciferol (vitamin D3) 25 25 mcg PO DAILY 01/25/21 05/10/21 History mcg (1,000 unit) capsule (Vitamin D3) epinephrine 0.3 mg/0.3 mL 0.3 mg IM Q4H PRN 01/25/21 05/10/21 History injection, auto-injector ipratropium 0.5 mg-albuterol 3 mg 3 ml INHALATION Q4H PRN 01/25/21 05/10/21 History (2.5 mg base)/3 mL nebulization soln ondansetron HCl 8 mg tablet 8 mg PO TID PRN 01/25/21 05/10/21 History albuterol sulfate 90 mcg/actuation 2 inh INHALATION Q4H PRN 04/08/21 05/10/21 History aerosol inhaler azelastine 137 mcg (0.1 %) nasal 2 spray INTRANASAL BID 04/08/21 05/10/21 History spray aerosol clopidogrel 75 mg tablet 75 mg PO DAILY 04/08/21 05/10/21 History fluticasone furoate 100 1 inh INHALATION DAILY 04/08/21 05/10/21 History mcg-vilanterol 25 mcg/dose inhalation powder (Breo Ellipta) loperamide 2 mg capsule 2 mg PO DAILY 04/08/21 05/10/21 History melatonin 3 mg tablet 3 mg PO HS #0 04/08/21 05/10/21 History ropinirole 0.25 mg tablet 0.5 mg PO HS 04/08/21 05/10/21 History diphenoxylate-atropine 2.5 1 tab PO DAILY PRN 04/24/21 05/10/21 History mg-0.025 mg tablet (Lomotil) loratadine 10 mg tablet 5 mg PO DAILY 04/24/21 05/10/21 History eatalngswk-rahlnmuvkkipx-gjljulia 1 tab PO Q4H PRN #30 tab 05/06/21 05/10/21 Rx 50 mg-325 mg-40 mg tablet hydralazine 50 mg tablet 50 mg PO TID #90 tab 05/06/21 05/10/21 Rx levetiracetam 500 mg tablet 500 mg PO DAILY@1800 #45 tab 05/06/21 05/10/21 Rx (Keppra) metoprolol tartrate 25 mg tablet 12.5 mg PO BID #60 tab 05/06/21 05/10/21 Rx sumatriptan succinate 50 mg tablet See Rx Instructions .ROUTE 02/01/22 02/01/22 History (Imitrex) .COMPLEX PRN Patient History Medical History Anemia Anxiety Asthma Uses albuterol daily. Atrial fibrillation FOLLOWED BY DR. CARROLL AV fistula Depression Diabetes mellitus, type 2 oral med End stage renal disease receiving hemodiaylsis Sunday//Saturdays in [place]. Follows Dr. Gonzales ([place], [place]). Endometriosis stage 4 GERD (gastroesophageal reflux disease) Hyperlipidemia Hypertension no medications currently - experiencing hypotension Hypothyroidism Kidney failure STAGE 4 NO DIALYSIS Migraine Myocardial Infarction 2008 Osteoarthritis Stroke X 2 2014 Surgical History History of abdominal surgery UMBILICAL MESH REMOVED (NECROTIC) History of adenoidectomy History of appendectomy History of martha hole surgery 2013 AFTER CVA TO "REMOVED FLUID" History of cardiac cath 2007 AT [facility] History of cataract surgery RT/LEFT History of section X 3 History of cholecystectomy History of colonoscopy History of coronary artery bypass graft 2007 3 [facility] AT [place] History of esophagogastroduodenoscopy (EGD) History of herniorrhaphy X 3 REPAIRS History of surgery LEFT FOOT/ANKLE FX REPAIR S/P FALL (HARDWARE) History of tonsillectomy History of tooth extraction History of total abdominal hysterectomy and bilateral salpingo-oophorectomy History of total knee replacement LEFT Hx of hand surgery LEFT HAND SURGERY "TOOK BONES OUT" S/P arteriovenous (AV) fistula creation Left arm S/P panniculectomy Family History Brother Family history of diabetes mellitus Coronary heart disease Mother Family history of diabetes mellitus Other No family history of adverse response to anesthesia Social History Smoking Status: Former smoker Tobacco Type: Cigarettes Cigarettes Per Day: 1; Second Hand Exposure: Yes; Hx Alcohol Use: No Hx Substance Use: No Preferred Language: Romanian Communication Ability: Effective Visual Impairment: No Limitations Licensing Services Clerk Required: No Beliefs That Will Affect Care: None marital status: / Current Living Situation: Alone How many Children do You have: 3 Other Information That Helps Us Care for You: No Feels Safe at Home: No Is there a partner from a previous relationship who is making you feel unsafe now?: No Any Concerns about Your Family Situation: No Would You Like to Speak to Someone About Your Situation: No Safety Concerns: Afraid for Self Assistive Devices: Cane and Walker Review of Systems Review of Systems: All systems reviewed & are unremarkable except as noted in HPI & below Physical Exam Physical Exam: Physical Exam: Constitutional: appearance nourished, thin Ears, Nose, Mouth and Throat: mucous membranes moist, no injection and skin normal, eyes normal Cardiovascular: irregular Respiratory: course breath sounds Musculoskeletal: no peripheral edema and decreased distal pulses Skin: no stigmata of neurocutaneous disease noted and normal and intact Eyes: extraocular muscles intact (EOMI) and pupils equal, round and reactive to light (PERRL) NEUROLOGIC EXAMINATION: Mental status: Alert and interactive Oriented to full date and location Oriented to person Speech fluent with no evidence of aphasia Cranial Nerves smile eye brow raise symmetric Reflexes: Deep tendon reflexes were symmetrical and graded 2/5 Sensory: light and cool touch Coordination: finger to nose Gait/Stance: Posture lying in bed Strength: generalized deconditioned Results & Data ([facility]) Vital Signs (Past 12 Hours) Vital Signs Temp Pulse Pulse Pulse Resp BP BP 05/12/21 12:20 64 120/69 05/12/21 12:00 61 129/68 05/12/21 11:40 60 154/78 H 05/12/21 11:20 58 L 177/83 H 05/12/21 11:00 54 L 164/81 H 05/12/21 10:40 54 L 153/75 H 05/12/21 10:20 52 L 157/76 H 05/12/21 10:00 58 L 180/80 H 05/12/21 09:40 53 L 193/89 H 05/12/21 09:20 57 L 188/85 H 05/12/21 09:06 57 L 182/73 H 05/12/21 08:59 36.6 C 60 05/12/21 08:00 37.2 C 60 20 179/69 H 05/12/21 07:11 63 05/12/21 03:20 36.7 C 52 L 20 148/57 H Pulse Ox 05/12/21 12:20 05/12/21 12:00 05/12/21 11:40 05/12/21 11:20 05/12/21 11:00 05/12/21 10:40 05/12/21 10:20 05/12/21 10:00 05/12/21 09:40 05/12/21 09:20 05/12/21 09:06 05/12/21 08:59 05/12/21 08:00 95 05/12/21 07:11 05/12/21 03:20 92 Laboratory Results Abnormal lab results 05/11/21 05/12/21 05/12/21 Range/Units 20:19 06:32 06:32 RBC 3.45 L (4.2-5.4) M/uL Hgb 10.6 L (12.0-16.0) g/dL Hct 33.5 L (37-47) % MCHC 31.6 L (32-36) g/dL RDW Std Deviation 57.1 H (36.4-46.3) fL RDW Coeff of Odilon 16.0 H (11.5-14.5) % Sodium 135 L (136-145) mmol/L BUN 60 H (6-23) mg/dl Creatinine 4.30 H D (0.6-1.2) mg/dl Glucose 123 H (70-99(Fasting)) mg/dl POC Glucose 129 H (70-99) mg/dl Calcium 7.7 L (8.5-10.1) mg/dl 05/12/21 Range/Units 07:51 RBC (4.2-5.4) M/uL Hgb (12.0-16.0) g/dL Hct (37-47) % MCHC (32-36) g/dL RDW Std Deviation (36.4-46.3) fL RDW Coeff of Odilon (11.5-14.5) % Sodium (136-145) mmol/L BUN (6-23) mg/dl Creatinine (0.6-1.2) mg/dl Glucose (70-99(Fasting)) mg/dl POC Glucose 114 H (70-99) mg/dl Calcium (8.5-10.1) mg/dl Diagnostic Findings CXR-there is a decreased inspiratory effort with otherwise no acute chest disease. CT head-No significant change compared to the prior study. No acute intracranial abnormality. (1) Migraine Intractability: intractable Migraine type: unspecified Status migrainosus presence: without status migrainosus Qualified Code(s): G43.919 - Migraine, unspecified, intractable, without status migrainosus
[2021-05-12] MEDS ORDERED: SUMAtriptan succinate 50 MG TAB PO ONE (13:39)
--- NOTE | 2021-05-12 14:31 | Hospitalist Progress Note ---
Date of Service May 12, 2021 Assessment & Plan (1) Lethargy: Plan: Likely secondary to home neuropsychotropic meds History of unresponsive episodes likely secondary to polypharmacy but no history of narcotic abuse Functional disability/ambulatory dysfunction (2) Migraine: Plan: Has been complaining of headache mostly left-sided since last admission Was given a few doses of Imitrex on discharge during last admission Has been complaining of severe headache and asking for Imitrex Appreciate neurology input and recommendation Imitrex has been discontinued and will start amitriptyline 10 mg at at bedtime We will also provide riboflavin 400 mg daily and magnesium oxide 400 mg daily (3) Headache: Plan: As above (4) Seizure: Plan: Has been on Keppra 5 mg daily and 500 mg after dialysis (5) DM2 (diabetes mellitus, type 2): Plan: DM2 on oral medications, well-controlled as of recent hemoglobin A1c of 6.13 April 2021 Has been on SSI (6) COPD (chronic obstructive pulmonary disease): (7) ESRD (end stage renal disease) on dialysis: Plan: Appreciate neurology input and recommendation We will continue hemodialysis Plan: hx chronic diastolic heart failure, euvolemic hx CAD status post CABG Hypertension, slightly elevated History of hypertensive urgency Blood pressure is controlled now Hyperlipidemia, statin intolerance COPD, lung status stable Stable Anxiety/mood disorder, patient known to be emotionally labile Chronic anemia, hemoglobin at baseline Functional disability Past tobacco abuse DVT prophylaxis. Heparin subcu Full code as per patient's prior directives. Admission and Anticipated Discharge Date Admission Date: May 11, 2021 Subjective 05/12/2021 The patient was seen and examined in medical telemetry unit She has been complaining of severe headache with nausea and is not relieved with intravenous Dilaudid She was given 1 dose of Imitrex today Denies any shortness of breath, chest pain and/or palpitation Review of Systems Review of Systems: All systems reviewed and are unremarkable except as noted below Neurologic: Severe headache likely secondary to migraine Physical Exam Physical Exam: Lying in bed with acute distress due to headache Constitutional: + ill appearing and average body habitus Eyes: PERRL, conjunctivae normal, anicteric sclerae ENMT: external ear and nose normal, oropharynx normal Neck: trachea midline, no thyromegaly Respiratory: no respiratory distress Auscultation: + diminished lung sounds and + crackles (Minimal bibasilar crackles) Cardiovascular: Rate/Rhythm: regular rate and regular rhythm; not tachycardic Heart Sounds: normal S1 and normal S2; no murmur Extremities: no edema Gastrointestinal (Abdomen): Inspection/Auscultation: normal bowel sounds; abdomen not distended Percussion/Palpation: abdomen soft; abdomen nontender Musculoskeletal: No acute arthritis in any joint Neurologic: Has headache mostly on the left hemicranium area not associated with any neurological symptoms Results & Data Results & Data ([facility]) Vital Signs (Past 12 Hours) Vital Signs Temp Pulse Pulse Pulse Resp BP BP 05/12/21 13:23 36.9 C 83 117/67 05/12/21 13:00 65 85/68 L 05/12/21 12:40 82 107/75 05/12/21 12:20 64 120/69 05/12/21 12:00 61 129/68 05/12/21 11:40 60 154/78 H 05/12/21 11:20 58 L 177/83 H 05/12/21 11:00 54 L 164/81 H 05/12/21 10:40 54 L 153/75 H 05/12/21 10:20 52 L 157/76 H 05/12/21 10:00 58 L 180/80 H 05/12/21 09:40 53 L 193/89 H 05/12/21 09:20 57 L 188/85 H 05/12/21 09:06 57 L 182/73 H 05/12/21 08:59 36.6 C 60 05/12/21 08:00 37.2 C 60 20 179/69 H 05/12/21 07:11 63 05/12/21 03:20 36.7 C 52 L 20 148/57 H Pulse Ox 05/12/21 13:23 05/12/21 13:00 05/12/21 12:40 05/12/21 12:20 05/12/21 12:00 05/12/21 11:40 05/12/21 11:20 05/12/21 11:00 05/12/21 10:40 05/12/21 10:20 05/12/21 10:00 05/12/21 09:40 05/12/21 09:20 05/12/21 09:06 05/12/21 08:59 05/12/21 08:00 95 05/12/21 07:11 05/12/21 03:20 92 Laboratory Results Short CBC 05/12/21 Range/Units 06:32 WBC 7.20 (4.8-10.8) K/uL Hgb 10.6 L (12.0-16.0) g/dL Hct 33.5 L (37-47) % Plt Count 161 (130-400) K/uL [facility] 05/12/21 06:32 Sodium 135 L Potassium 4.9 Chloride 102 Carbon Dioxide 27 BUN 60 H Creatinine 4.30 H D Glucose 123 H Calcium 7.7 L Medications Administered Short CBC 05/12/21 Range/Units 06:32 WBC 7.20 (4.8-10.8) K/uL Hgb 10.6 L (12.0-16.0) g/dL Hct 33.5 L (37-47) % Plt Count 161 (130-400) K/uL [facility] 05/12/21 06:32 Sodium 135 L Potassium 4.9 Chloride 102 Carbon Dioxide 27 BUN 60 H Creatinine 4.30 H D Glucose 123 H Calcium 7.7 L (1) Migraine Intractability: intractable Migraine type: unspecified Status migrainosus presence: without status migrainosus Qualified Code(s): G43.919 - Migraine, unspecified, intractable, without status migrainosus
[2021-05-12] MEDS ORDERED: RIBOFLAVIN 400 MG PO SCH (14:45)
[2021-05-12] MEDS: MAGNESIUM OXIDE 400 MG TAB PO SCH (16:03)
[2021-05-12] MEDS: levETIRAcetam 500 MG TAB PO SCH (17:58)
[2021-05-12] MEDS: MONTELUKAST SODIUM 10 MG TABLET PO SCH (20:24)
[2021-05-12] MEDS: AMITRIPTYLINE HCL 10 MG TAB PO SCH (20:25)
[2021-05-12] MEDS: rOPINIRole HCL 0.25 MG TABLET PO SCH (20:25)
[2021-05-12] MEDS: MELATONIN 3 MG TAB PO PRN (22:22)
[2021-05-13] MEDS: ACETAMINOPHEN 325 MG TAB PO PRN ×2 (02:50→10:04)
[2021-05-13] MEDS: HEPARIN SOD 5,000 UNIT/0.5 ML VIAL SQ SCH ×3 (06:12→20:52)
[2021-05-13] MEDS: LEVOTHYROXINE SODIUM 25 MCG TABLET PO SCH (06:13)
[2021-05-13] MEDS: INSULIN ASPART PER UNIT SC SCH ×4 (07:38→20:51)
[2021-05-13] MEDS: amLODIPine BESYLATE 5 MG TAB PO SCH (07:39)
[2021-05-13] MEDS: MAGNESIUM OXIDE 400 MG TAB PO SCH (07:39)
[2021-05-13] MEDS: CLOPIDOGREL BISULFATE 75 MG TAB PO SCH (07:39)
[2021-05-13] MEDS: SEVELAMER HCL 800 MG TABLET PO SCH ×3 (07:39→15:36)
[2021-05-13] MEDS: LORATADINE 10 MG TAB PO SCH (07:39)
[2021-05-13] MEDS: ASPIRIN 81 MG ECTAB PO SCH (07:39)
[2021-05-13] MEDS: hydrALAZINE TAB 50 MG TAB PO SCH ×3 (07:40→20:51)
[2021-05-13] MEDS: FUROSEMIDE 40 MG TAB PO SCH (07:40)
[2021-05-13] MEDS: FLUTICASONE/VILANTEROL 100/25MCG 14 PUFFS/INHALER INH SCH (07:40)
[2021-05-13] MEDS: AZELASTINE HCL 0.1% NASAL 200 SPRAYS/27,400 MCG BTL NAE SCH ×2 (07:40→20:51)
[2021-05-13] MEDS ORDERED: SERTRALINE HCL 50 MG TABLET PO ONE (09:45)
--- NOTE | 2021-05-13 09:49 | Nephrology Progress Note ---
Date of Service May 13, 2021 Assessment & Plan (1) End stage renal disease: Plan: Marked HTN ongoing and at HD > tolerated 3.85L fluid removal yesterday. w/ marked HTN not always pain mediated > so will be more aggressive with fluid removal at routine HD. -next HD tomorrow per routine as IP or OP -daily bmp; CBC q48-72 hr pls Care coordinated w/ Dr Salter (2) Migraine: Plan: challenging CARL issues for this pt; neuro saw pt and recommending certain meds, including asking for renal dispo on some >> >we can trial magnesium >> would need to be clear on d/c summary why she is on that (if it helps) and may need to adjust dose depending on levels; recommend follow level monthly at HD and adjust >one time depakote dose ok; would need to discuss further if it became standing med in this dialysis pt Admission and Anticipated Discharge Date Admission Date: May 11, 2021 Subjective still w/ BL jaw pain but CARL overall much improved on new meds. tolerated higher intensity UF yesterday Review of Systems Review of Systems: All systems reviewed & are unremarkable except as noted in Subjective Physical Exam Constitutional: well developed and well nourished; no acute distress up in chair Eyes: EOM intact bilaterally ENMT: Ears: no external ear abnormality Nose: no external nose abnormality Mouth: + dry oral mucous membranes Neck: no nuchal rigidity Respiratory: normal respiratory effort Auscultation: + diminished lung sounds Cardiovascular: Extremities: + AV fistula (+ t/b) Gastrointestinal (Abdomen): Inspection/Auscultation: normal bowel sounds Percussion/Palpation: abdomen soft; abdomen nontender Musculoskeletal: Extremities: strength 5/5 throughout Skin: no rashes, warm and dry Psychiatric: Orientation: oriented to person and oriented to place Speech: + pressured speech Affect: + anxious affect Results & Data ([facility]) Vital Signs (Past 12 Hours) Vital Signs Temp Pulse Pulse Resp BP Pulse Ox 05/13/21 08:16 37.3 C 56 L 20 169/66 H 94 05/13/21 03:30 36.8 C 57 L 20 144/60 H 95 05/13/21 00:22 61 05/12/21 23:18 36.8 C 90 20 147/67 H 92 Laboratory Results 05/12/21 06:32 05/12/21 06:32 (1) Migraine Intractability: intractable Migraine type: unspecified Status migrainosus presence: without status migrainosus Qualified Code(s): G43.919 - Migraine, unspecified, intractable, without status migrainosus
[2021-05-13] MEDS: cefTRIAXone SODIUM 1,000 MG in DEXTROSE 5% 50 ML IV SCH (15:35)
[2021-05-13] MEDS: levETIRAcetam 500 MG TAB PO SCH (15:36)
--- NOTE | 2021-05-13 17:22 | Hospitalist Progress Note ---
Date of Service May 13, 2021 Assessment & Plan (1) Lethargy: Plan: Likely secondary to home neuropsychotropic meds History of unresponsive episodes likely secondary to polypharmacy but no history of narcotic abuse Functional disability/ambulatory dysfunction Noted to have UTI and ceftriaxone has been started (2) Migraine: Plan: Has been complaining of headache mostly left-sided since last admission Was given a few doses of Imitrex on discharge during last admission Has been complaining of severe headache and asking for Imitrex Appreciate neurology input and recommendation Imitrex has been discontinued and will start amitriptyline 10 mg at at bedtime We will also provide riboflavin 400 mg daily and magnesium oxide 400 mg daily Denies any more headache (3) Headache: Plan: As above (4) Seizure: Plan: Has been on Keppra 5 mg daily and 500 mg after dialysis Continue Keppra (5) DM2 (diabetes mellitus, type 2): Plan: DM2 on oral medications, well-controlled as of recent hemoglobin A1c of 6.13 April 2021 Has been on SSI (6) COPD (chronic obstructive pulmonary disease): (7) ESRD (end stage renal disease) on dialysis: Plan: Appreciate neurology input and recommendation We will continue hemodialysis Plan: hx chronic diastolic heart failure, euvolemic hx CAD status post CABG Hypertension, slightly elevated History of hypertensive urgency Blood pressure is controlled now Hyperlipidemia, statin intolerance COPD, lung status stable Stable Anxiety/mood disorder, 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 Heparin subcu Full code as per patient's prior directives. Likely discharge tomorrow or on Sunday Admission and Anticipated Discharge Date Admission Date: May 11, 2021 Subjective 05/12/2021 The patient was seen and examined in medical telemetry unit She has been complaining of severe headache with nausea and is not relieved with intravenous Dilaudid She was given 1 dose of Imitrex today Denies any shortness of breath, chest pain and/or palpitation 05/13/2021 The patient was seen and examined in medical telemetry unit Her headache seems to be improved She has been having anxiety symptoms and wants to have her Zoloft restarted Review of Systems Review of Systems: All systems reviewed and are unremarkable except as noted below Neurologic: Severe headache likely secondary to migraine Physical Exam Physical Exam: Lying in bed with acute distress due to headache Constitutional: + ill appearing and average body habitus Eyes: PERRL, conjunctivae normal, anicteric sclerae ENMT: external ear and nose normal, oropharynx normal Neck: trachea midline, no thyromegaly Respiratory: no respiratory distress Auscultation: + diminished lung sounds and + crackles (Minimal bibasilar crackles) Cardiovascular: Rate/Rhythm: regular rate and regular rhythm; not tachycardic Heart Sounds: normal S1 and normal S2; no murmur Extremities: no edema Gastrointestinal (Abdomen): Inspection/Auscultation: normal bowel sounds; abdomen not distended Percussion/Palpation: abdomen soft; abdomen nontender Musculoskeletal: No acute arthritis in any joint Neurologic: Headache is much better. No associated neurological symptoms Results & Data Results & Data ([facility]) Vital Signs (Past 12 Hours) Vital Signs Temp Pulse Pulse Resp BP Pulse Ox 05/13/21 16:19 56 L 05/13/21 15:40 170/73 H 05/13/21 15:14 36.7 C 59 L 20 193/72 H 95 05/13/21 11:07 36.6 C 67 20 173/72 H 97 05/13/21 08:16 37.3 C 56 L 20 169/66 H 94 Medications Administered Current Inpatient Medications Acetaminophen (Acetaminophen 325 Mg Tab) 650 mg PO Q4H PRN PRN Reason: Pain or Fever Stop: 06/10/21 01:39 Last Admin: 05/13/21 10:04 Dose: 650 mg Documented by: Amitriptyline HCl (Amitriptyline Hcl 10 Mg Tab) 10 mg PO [facility] Stop: 06/11/21 20:59 Last Admin: 05/12/21 20:25 Dose: 10 mg Documented by: Amlodipine Besylate (Amlodipine Besylate 5 Mg Tab) [facility] Stop: 06/10/21 08:59 Last Admin: 05/13/21 07:39 Dose: 10 mg Documented by: Aspirin (Aspirin 81 Mg Ectab) 81 mg PO QAM [facility] Stop: 06/10/21 08:59 Last Admin: 05/13/21 07:39 Dose: 81 mg Documented by: Azelastine HCl (Azelastine Hcl 0.1% Nasal 200 Sprays/27,400 Mcg Btl) 2 sprays DENIZ BID [facility] Stop: 06/10/21 08:59 Last Admin: 05/13/21 07:40 Dose: 2 sprays Documented by: Clopidogrel Bisulfate (Clopidogrel Bisulfate 75 Mg Tab) 75 mg PO DAILY [facility] Stop: 06/10/21 08:59 Last Admin: 05/13/21 07:39 Dose: 75 mg Documented by: Dextrose (Dextrose 50% 50 Ml Syringe) 25 - 50 ml IV UD PRN; Protocol PRN Reason: Hypoglycemia Protocol Stop: 06/10/21 03:49 Fluticasone Propionate (Fluticasone Propionate Na Spr 16 Gm Btl) 1 sprays NA DAILY PRN PRN Reason: Nasal Congestion Stop: 06/10/21 03:49 Fluticasone/Vilanterol (Fluticasone/Vilanterol 100/25mcg 14 Puffs/Inhaler) 1 puffs INH DAILY [facility] Stop: 06/10/21 08:59 Last Admin: 05/13/21 07:40 Dose: 1 puffs Documented by: Furosemide (Furosemide 40 Mg Tab) 40 mg PO QAM [facility] Stop: 06/10/21 08:59 Last Admin: 05/13/21 07:40 Dose: 40 mg Documented by: Glucagon (Glucagon For Inj 1 Mg Vial) 1 mg SQ UD PRN; Protocol PRN Reason: Hypoglycemia Protocol Stop: 06/10/21 03:49 Glucose (Glucose 10 Tabs/Tube) 4 - 8 tabs PO UD PRN; Protocol PRN Reason: Hypoglycemia Protocol Stop: 06/10/21 03:49 Glucose (Glucose 40% Gel 15 Gm Tube) 15 - 30 gm PO UD PRN; Protocol PRN Reason: Hypoglycemia Protocol Stop: 06/10/21 03:49 Heparin Sodium (Porcine) (Heparin Sod 5,000 Unit/0.5 Ml Vial) 5,000 units SQ Q8 [facility] Stop: 06/10/21 05:59 Last Admin: 05/13/21 07:45 Dose: Not Given Documented by: Hydralazine HCl (Hydralazine Tab 50 Mg Tab) 50 mg PO TID [facility] Stop: 06/10/21 08:59 Last Admin: 05/13/21 12:44 Dose: 50 mg Documented by: Hydromorphone HCl (Hydromorphone Inj 0.5 Mg/0.5 Ml Syr) 0.25 mg IV Q6H PRN PRN Reason: Pain Stop: 05/25/21 11:54 Last Admin: 05/12/21 19:10 Dose: 0.25 mg Documented by: Promethazine HCl 12.5 mg/ (Sodium Chloride) 50.5 mls @ 202 mls/hr IV Q6H PRN PRN Reason: Nausea And Vomiting Stop: 06/10/21 03:49 Ceftriaxone Sodium 1,000 mg/ (Dextrose) 50 mls @ 100 mls/hr IV Q24H [facility]; Protocol Stop: 05/18/21 15:59 Last Infusion: 05/13/21 16:05 Dose: Infused Documented by: Insulin Aspart (Insulin Aspart Per Unit) 0 units SC ACHS [facility] Stop: 06/10/21 03:49 Last Admin: 05/13/21 15:35 Dose: Not Given Documented by: Levetiracetam (Levetiracetam 500 Mg Tab) 500 mg PO DAILY@1800 [facility] Stop: 06/10/21 17:59 Last Admin: 05/13/21 15:36 Dose: 500 mg Documented by: Levothyroxine Sodium (Levothyroxine Sodium 25 Mcg Tablet) 25 mcg PO DAILYBB [facility] Stop: 06/10/21 06:29 Last Admin: 05/13/21 06:13 Dose: 25 mcg Documented by: Loratadine (Loratadine 10 Mg Tab) 5 mg PO DAILY [facility] Stop: 06/10/21 08:59 Last Admin: 05/13/21 07:39 Dose: 5 mg Documented by: Magnesium Oxide (Magnesium Oxide 400 Mg Tab) 400 mg PO QAM [facility] Stop: 06/11/21 14:44 Last Admin: 05/13/21 07:39 Dose: 400 mg Documented by: Melatonin (Melatonin 3 Mg Tab) 3 mg PO HS PRN PRN Reason: Sleep Stop: 06/11/21 21:07 Last Admin: 05/12/21 22:22 Dose: 3 mg Documented by: Miscellaneous (Carbohydrates For Hypoglycemia ) 15 - 30 gm PO UD PRN PRN Reason: Hypoglycemia Protocol Stop: 06/10/21 03:49 Montelukast Sodium (Montelukast Sodium 10 Mg Tablet) 10 mg PO HS [facility] Stop: 06/10/21 20:59 Last Admin: 05/12/21 20:24 Dose: 10 mg Documented by: Ropinirole HCl (Ropinirole Hcl 0.25 Mg Tablet) 0.5 mg PO HS [facility] Stop: 06/11/21 20:59 Last Admin: 05/12/21 20:25 Dose: 0.5 mg Documented by: Sertraline HCl (Sertraline Hcl 50 Mg Tablet) 150 mg PO QAM [facility] Stop: 06/13/21 08:59 Sevelamer HCl (Sevelamer Hcl 800 Mg Tablet) 800 mg PO TIDM [facility] Stop: 06/10/21 07:59 Last Admin: 05/13/21 15:36 Dose: 800 mg Documented by: (1) Migraine Intractability: intractable Migraine type: unspecified Status migrainosus presence: without status migrainosus Qualified Code(s): G43.919 - Migraine, unspecified, intractable, without status migrainosus
[2021-05-13] MEDS ORDERED: SODIUM CHLORIDE 0.9% 1000ML 1,000 ML IV PRN (17:50)
[2021-05-13] MEDS: HYDROmorphone INJ 0.5 MG/0.5 ML SYR IV PRN (19:33)
[2021-05-13] MEDS ORDERED: LABETALOL HCL IV 5 MG/ML 20ML IV STA (20:04)
[2021-05-13] MEDS: AMITRIPTYLINE HCL 10 MG TAB PO SCH (20:51)
[2021-05-13] MEDS: MONTELUKAST SODIUM 10 MG TABLET PO SCH (20:52)
[2021-05-13] MEDS: rOPINIRole HCL 0.25 MG TABLET PO SCH (20:52)
[2021-05-13] MEDS: MELATONIN 3 MG TAB PO PRN (21:38)
[2021-05-13] MEDS ORDERED: oxyCODONE HCL IR 5 MG TAB (IMMEDIATE RELEASE) PO STA (23:08)
[2021-05-14] MEDS: HYDROmorphone INJ 0.5 MG/0.5 ML SYR IV PRN ×3 (02:17→20:56)
[2021-05-14 03:55] LABS: Amphetamines+Metham, Urine Neg (Neg); Barbiturates, Urine Pos (Neg); Benzodiazepine, Urine Neg (Neg); Cocaine, Urine Neg (Neg); MDMA (Ecstacy), Urine Neg (Neg); Methadone, Urine Neg (Neg); Opiate, Urine Neg (Neg); Phencyclidine, Urine Neg (Neg)
[2021-05-14] MEDS: HEPARIN SOD 5,000 UNIT/0.5 ML VIAL SQ SCH ×3 (06:16→20:59)
[2021-05-14] MEDS: LEVOTHYROXINE SODIUM 25 MCG TABLET PO SCH (06:16)
[2021-05-14] MEDS ORDERED: SODIUM CHLORIDE 0.9% 1000ML 1,000 ML IV PRN (07:00)
[2021-05-14] MEDS ORDERED: HEPARIN SOD (PORCINE) 1000 UNIT/ML IV SCH (07:00)
[2021-05-14] MEDS: SEVELAMER HCL 800 MG TABLET PO SCH ×3 (08:56→17:54)
[2021-05-14] MEDS: INSULIN ASPART PER UNIT SC SCH ×4 (08:58→20:58)
--- NOTE | 2021-05-14 10:20 | Nephrology Progress Note ---
Date of Service May 14, 2021 Assessment & Plan (1) End stage renal disease: Plan: Marked HTN ongoing and at HD > tolerated 3.85L fluid removal on last TX. w/ marked HTN not always pain mediated > so will be more aggressive with fluid removal at routine HD. - HD today per routine, -daily bmp; CBC q48-72 hr pls (2) Migraine: Plan: challenging CARL issues for this pt; neuro saw pt and recommending certain meds, including asking for renal dispo on some >> >we can trial magnesium >> would need to be clear on d/c summary why she is on that (if it helps) and may need to adjust dose depending on levels; recommend follow level monthly at HD and adjust >one time depakote dose ok; would need to discuss further if it became standing med in this dialysis pt Admission and Anticipated Discharge Date Admission Date: May 13, 2021 Subjective Comfortable Alert Review of Systems Review of Systems: All systems reviewed & are unremarkable except as noted in HPI & below Results & Data ([facility]) Vital Signs (Past 12 Hours) Vital Signs Temp Pulse Pulse Resp BP Pulse Ox 05/14/21 08:36 36.7 C 61 18 185/68 H 96 05/14/21 07:51 59 L 05/14/21 04:00 36.7 C 60 18 118/61 95 05/13/21 23:40 67 05/13/21 23:05 37.0 C 65 18 137/60 94 Laboratory Results 05/12/21 06:32 05/12/21 06:32 (1) Migraine Intractability: intractable Migraine type: unspecified Status migrainosus presence: without status migrainosus Qualified Code(s): G43.919 - Migraine, unspecified, intractable, without status migrainosus
[2021-05-14] MEDS: HEPARIN SOD (PORCINE) 1000 UNIT/ML IV SCH (11:42)
[2021-05-14] MEDS: ASPIRIN 81 MG ECTAB PO SCH (14:10)
[2021-05-14] MEDS: FLUTICASONE/VILANTEROL 100/25MCG 14 PUFFS/INHALER INH SCH (14:11)
[2021-05-14] MEDS: AZELASTINE HCL 0.1% NASAL 200 SPRAYS/27,400 MCG BTL NAE SCH ×2 (14:11→20:57)
[2021-05-14] MEDS: CLOPIDOGREL BISULFATE 75 MG TAB PO SCH (14:11)
[2021-05-14] MEDS: FUROSEMIDE 40 MG TAB PO SCH ×2 (14:12→14:13)
[2021-05-14] MEDS: hydrALAZINE TAB 50 MG TAB PO SCH ×3 (14:12→20:58)
[2021-05-14] MEDS: amLODIPine BESYLATE 5 MG TAB PO SCH (14:12)
[2021-05-14] MEDS: LORATADINE 10 MG TAB PO SCH (14:13)
[2021-05-14] MEDS: MAGNESIUM OXIDE 400 MG TAB PO SCH (14:13)
[2021-05-14] MEDS: SERTRALINE HCL 50 MG TABLET PO SCH (14:14)
--- NOTE | 2021-05-14 15:46 | Hospitalist Progress Note ---
Date of Service May 14, 2021 Assessment & Plan (1) Lethargy: Plan: Likely secondary to home neuropsychotropic meds History of unresponsive episodes likely secondary to polypharmacy but no history of narcotic abuse Functional disability/ambulatory dysfunction Noted to have UTI and ceftriaxone has been started Once to go home (2) Migraine: Plan: Has been complaining of headache mostly left-sided since last admission Was given a few doses of Imitrex on discharge during last admission Has been complaining of severe headache and asking for Imitrex Appreciate neurology input and recommendation Imitrex has been discontinued and will start amitriptyline 10 mg at at bedtime We will also provide riboflavin 400 mg daily and magnesium oxide 400 mg daily Denies any more headache- Seems to be controlled now (3) Headache: Plan: As above Minimal (4) Seizure: Plan: Has been on Keppra 5 mg daily and 500 mg after dialysis Continue Keppra (5) DM2 (diabetes mellitus, type 2): Plan: DM2 on oral medications, well-controlled as of recent hemoglobin A1c of 6.13 April 2021 Has been on SSI (6) COPD (chronic obstructive pulmonary disease): Plan: No acute exacerbation (7) ESRD (end stage renal disease) on dialysis: Plan: Appreciate neurology input and recommendation We will continue hemodialysis Next hemodialysis on Sunday Likely be discharged tomorrow Plan: hx chronic diastolic heart failure, euvolemic hx CAD status post CABG Hypertension, slightly elevated History of hypertensive urgency Blood pressure is controlled now Hyperlipidemia, statin intolerance COPD, lung status stable Stable Anxiety/mood disorder, 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 Heparin subcu Full code as per patient's prior directives. Likely discharge tomorrow or on Sunday Admission and Anticipated Discharge Date Admission Date: May 13, 2021 Subjective 05/12/2021 The patient was seen and examined in medical telemetry unit She has been complaining of severe headache with nausea and is not relieved with intravenous Dilaudid She was given 1 dose of Imitrex today Denies any shortness of breath, chest pain and/or palpitation 05/13/2021 The patient was seen and examined in medical telemetry unit Her headache seems to be improved She has been having anxiety symptoms and wants to have her Zoloft restarted 05/14/2021 The patient was seen and examined in medical telemetry unit She is a status post dialysis today and complaining of leg cramps She also feels that she needs to be washed and showered Review of Systems Review of Systems: All systems reviewed and are unremarkable except as noted below Neurologic: Severe headache likely secondary to migraine Physical Exam Physical Exam: Lying in bed with acute distress due to headache Constitutional: + ill appearing and average body habitus Eyes: PERRL, conjunctivae normal, anicteric sclerae ENMT: external ear and nose normal, oropharynx normal Neck: trachea midline, no thyromegaly Respiratory: no respiratory distress Auscultation: + diminished lung sounds and + crackles (Minimal bibasilar crackles) Cardiovascular: Rate/Rhythm: regular rate and regular rhythm; not tachycardic Heart Sounds: normal S1 and normal S2; no murmur Extremities: no edema Gastrointestinal (Abdomen): Inspection/Auscultation: normal bowel sounds; abdomen not distended Percussion/Palpation: abdomen soft; abdomen nontender Musculoskeletal: No acute arthritis in any joint Neurologic: Complains to headache specially when she is very anxious Results & Data Results & Data ([facility]) Vital Signs (Past 12 Hours) Vital Signs Temp Pulse Pulse Resp BP BP Pulse Ox 05/14/21 14:09 36.7 C 122 H 18 139/89 96 05/14/21 13:32 36.5 C 102 H 111/81 05/14/21 13:20 80 100/60 05/14/21 13:00 85 134/104 H 05/14/21 12:40 78 128/70 05/14/21 12:20 72 143/78 H 05/14/21 12:00 75 128/66 05/14/21 11:40 67 150/75 H 05/14/21 11:37 72 144/82 H 05/14/21 11:20 77 135/65 05/14/21 11:00 81 132/76 05/14/21 10:40 71 119/54 L 05/14/21 10:20 67 154/78 H 05/14/21 10:00 66 143/73 H 05/14/21 09:40 63 185/80 H 05/14/21 09:26 63 174/74 H 05/14/21 09:13 36.9 C 67 02/05/22 08:36 36.7 C 61 18 185/68 H 96 05/14/21 07:51 59 L 05/14/21 04:00 36.7 C 60 18 118/61 95 Medications Administered Current Inpatient Medications Acetaminophen (Acetaminophen 325 Mg Tab) 650 mg PO Q4H PRN PRN Reason: Pain or Fever Stop: 06/10/21 01:39 Last Admin: 05/13/21 10:04 Dose: 650 mg Documented by: Amitriptyline HCl (Amitriptyline Hcl 10 Mg Tab) 10 mg PO HS [facility] Stop: 06/11/21 20:59 Last Admin: 05/13/21 20:51 Dose: 10 mg Documented by: Amlodipine Besylate (Amlodipine Besylate 5 Mg Tab) 10 mg PO QAM [facility] Stop: 06/10/21 08:59 Last Admin: 05/14/21 14:12 Dose: Not Given Documented by: Aspirin (Aspirin 81 Mg Ectab) 81 mg PO QAM [facility] Stop: 06/10/21 08:59 Last Admin: 05/14/21 14:10 Dose: 81 mg Documented by: Azelastine HCl (Azelastine Hcl 0.1% Nasal 200 Sprays/27,400 Mcg Btl) 2 sprays DENIZ BID [facility] Stop: 06/10/21 08:59 Last Admin: 05/14/21 14:11 Dose: 2 sprays Documented by: Clopidogrel Bisulfate (Clopidogrel Bisulfate 75 Mg Tab) 75 mg PO DAILY [facility] Stop: 06/10/21 08:59 Last Admin: 05/14/21 14:11 Dose: 75 mg Documented by: Dextrose (Dextrose 50% 50 Ml Syringe) 25 - 50 ml IV UD PRN; Protocol PRN Reason: Hypoglycemia Protocol Stop: 06/10/21 03:49 Fluticasone Propionate (Fluticasone Propionate Na Spr 16 Gm Btl) 1 sprays NA DAILY PRN PRN Reason: Nasal Congestion Stop: 06/10/21 03:49 Fluticasone/Vilanterol (Fluticasone/Vilanterol 100/25mcg 14 Puffs/Inhaler) 1 puffs INH DAILY [facility] Stop: 06/10/21 08:59 Last Admin: 05/14/21 14:11 Dose: 1 puffs Documented by: Furosemide (Furosemide 40 Mg Tab) 40 mg PO QAM [facility] Stop: 06/10/21 08:59 Last Admin: 05/14/21 14:13 Dose: 40 mg Documented by: Glucagon (Glucagon For Inj 1 Mg Vial) 1 mg SQ UD PRN; Protocol PRN Reason: Hypoglycemia Protocol Stop: 06/10/21 03:49 Glucose (Glucose 10 Tabs/Tube) 4 - 8 tabs PO UD PRN; Protocol PRN Reason: Hypoglycemia Protocol Stop: 06/10/21 03:49 Glucose (Glucose 40% Gel 15 Gm Tube) 15 - 30 gm PO UD PRN; Protocol PRN Reason: Hypoglycemia Protocol Stop: 06/10/21 03:49 Heparin Sodium (Porcine) (Heparin Sod 5,000 Unit/0.5 Ml Vial) 5,000 units SQ Q8 [facility] Stop: 06/10/21 05:59 Last Admin: 05/14/21 14:15 Dose: 5,000 units Documented by: Heparin Sodium (Porcine) (Heparin Sod (Porcine) 1000 Unit/Ml) 1,000 units IV TODAY@0700 [facility] Stop: 05/14/21 18:00 Last Admin: 05/14/21 11:41 Dose: Not Given Documented by: Hydralazine HCl (Hydralazine Tab 50 Mg Tab) 50 mg PO TID [facility] Stop: 06/10/21 08:59 Last Admin: 05/14/21 14:13 Dose: 50 mg Documented by: Hydromorphone HCl (Hydromorphone Inj 0.5 Mg/0.5 Ml Syr) 0.25 mg IV Q6H PRN PRN Reason: Pain Stop: 05/25/21 11:54 Last Admin: 05/14/21 14:22 Dose: 0.25 mg Documented by: Promethazine HCl 12.5 mg/ (Sodium Chloride) 50.5 mls @ 202 mls/hr IV Q6H PRN PRN Reason: Nausea And Vomiting Stop: 06/10/21 03:49 Ceftriaxone Sodium 1,000 mg/ (Dextrose) 50 mls @ 100 mls/hr IV Q24H [facility]; Protocol Stop: 05/18/21 15:59 Last Infusion: 05/13/21 16:05 Dose: Infused Documented by: Insulin Aspart (Insulin Aspart Per Unit) 0 units SC ACHS [facility] Stop: 06/10/21 03:49 Last Admin: 05/14/21 14:30 Dose: Not Given Documented by: Levetiracetam (Levetiracetam 500 Mg Tab) 500 mg PO DAILY@1800 [facility] Stop: 06/10/21 17:59 Last Admin: 05/13/21 15:36 Dose: 500 mg Documented by: Levothyroxine Sodium (Levothyroxine Sodium 25 Mcg Tablet) 25 mcg PO DAILYBB [facility] Stop: 06/10/21 06:29 Last Admin: 05/14/21 06:16 Dose: 25 mcg Documented by: Loratadine (Loratadine 10 Mg Tab) 5 mg PO DAILY [facility] Stop: 06/10/21 08:59 Last Admin: 05/14/21 14:13 Dose: 5 mg Documented by: Magnesium Oxide (Magnesium Oxide 400 Mg Tab) 400 mg PO QAM [facility] Stop: 06/11/21 14:44 Last Admin: 05/14/21 14:13 Dose: 400 mg Documented by: Melatonin (Melatonin 3 Mg Tab) 3 mg PO HS PRN PRN Reason: Sleep Stop: 06/11/21 21:07 Last Admin: 05/13/21 21:38 Dose: 3 mg Documented by: Miscellaneous (Carbohydrates For Hypoglycemia ) 15 - 30 gm PO UD PRN PRN Reason: Hypoglycemia Protocol Stop: 06/10/21 03:49 Montelukast Sodium (Montelukast Sodium 10 Mg Tablet) 10 mg PO [facility] Stop: 06/10/21 20:59 Last Admin: 05/13/21 20:52 Dose: 10 mg Documented by: Ropinirole HCl (Ropinirole Hcl 0.25 Mg Tablet) 0.5 mg PO HS [facility] Stop: 06/11/21 20:59 Last Admin: 05/13/21 20:52 Dose: 0.5 mg Documented by: Sertraline HCl (Sertraline Hcl 50 Mg Tablet) 150 mg PO QAM [facility] Stop: 06/13/21 08:59 Last Admin: 05/14/21 14:14 Dose: 150 mg Documented by: Sevelamer HCl (Sevelamer Hcl 800 Mg Tablet) 800 mg PO TIDM [facility] Stop: 06/10/21 07:59 Last Admin: 05/14/21 14:14 Dose: 800 mg Documented by: (1) Migraine Intractability: intractable Migraine type: unspecified Status migrainosus presence: without status migrainosus Qualified Code(s): G43.919 - Migraine, unspecified, intractable, without status migrainosus
[2021-05-14] MEDS: cefTRIAXone SODIUM 1,000 MG in DEXTROSE 5% 50 ML IV SCH (15:53)
[2021-05-14] MEDS: levETIRAcetam 500 MG TAB PO SCH (17:54)
[2021-05-14] MEDS: MELATONIN 3 MG TAB PO PRN (20:57)
[2021-05-14] MEDS: AMITRIPTYLINE HCL 10 MG TAB PO SCH (20:57)
[2021-05-14] MEDS: rOPINIRole HCL 0.25 MG TABLET PO SCH (20:58)
[2021-05-14] MEDS: MONTELUKAST SODIUM 10 MG TABLET PO SCH (20:58)
[2021-05-15] MEDS ORDERED: oxyCODONE HCL IR 5 MG TAB (IMMEDIATE RELEASE) PO STA (01:13)
[2021-05-15] MEDS ORDERED: LOPERAMIDE HCL 2 MG CAP PO STA (01:13)
[2021-05-15] MEDS: HYDROmorphone INJ 0.5 MG/0.5 ML SYR IV PRN (03:04)
[2021-05-15] MEDS: HEPARIN SOD 5,000 UNIT/0.5 ML VIAL SQ SCH (05:44)
[2021-05-15] MEDS: LEVOTHYROXINE SODIUM 25 MCG TABLET PO SCH (05:45)
[2021-05-15] MEDS: hydrALAZINE TAB 50 MG TAB PO SCH (07:42)
[2021-05-15] MEDS: amLODIPine BESYLATE 5 MG TAB PO SCH (07:42)
[2021-05-15] MEDS: MAGNESIUM OXIDE 400 MG TAB PO SCH (07:42)
[2021-05-15] MEDS: LORATADINE 10 MG TAB PO SCH (07:43)
[2021-05-15] MEDS: CLOPIDOGREL BISULFATE 75 MG TAB PO SCH (07:43)
[2021-05-15] MEDS: FUROSEMIDE 40 MG TAB PO SCH (07:43)
[2021-05-15] MEDS: ASPIRIN 81 MG ECTAB PO SCH (07:43)
[2021-05-15] MEDS: SERTRALINE HCL 50 MG TABLET PO SCH (07:43)
[2021-05-15] MEDS: FLUTICASONE/VILANTEROL 100/25MCG 14 PUFFS/INHALER INH SCH (07:43)
[2021-05-15] MEDS: SEVELAMER HCL 800 MG TABLET PO SCH (07:43)
[2021-05-15] MEDS: INSULIN ASPART PER UNIT SC SCH (07:44)
[2021-05-15] MEDS: AZELASTINE HCL 0.1% NASAL 200 SPRAYS/27,400 MCG BTL NAE SCH (07:44)
--- NOTE | 2021-05-15 09:22 | Hospitalist Progress Note ---
Date of Service May 15, 2021 Assessment & Plan (1) Lethargy: Plan: Likely secondary to home neuropsychotropic meds History of unresponsive episodes likely secondary to polypharmacy but no history of narcotic abuse Functional disability/ambulatory dysfunction Noted to have UTI and ceftriaxone has been started Remains stable and walking around in the room without any symptoms She wants to go home Discussed with the son and she will be discharged home at 11 today (2) Migraine: Plan: Has been complaining of headache mostly left-sided since last admission Was given a few doses of Imitrex on discharge during last admission Has been complaining of severe headache and asking for Imitrex Appreciate neurology input and recommendation Imitrex has been discontinued and will start amitriptyline 10 mg at at bedtime We will also provide riboflavin 400 mg daily and magnesium oxide 400 mg daily Denies any more headache- Seems to be controlled now No more attacks of headache (3) Headache: Plan: As above Minimal (4) Seizure: Plan: Has been on Keppra 5 mg daily and 500 mg after dialysis Continue Keppra (5) DM2 (diabetes mellitus, type 2): Plan: DM2 on oral medications, well-controlled as of recent hemoglobin A1c of 6.13 April 2021 Has been on SSI (6) COPD (chronic obstructive pulmonary disease): Plan: No acute exacerbation (7) ESRD (end stage renal disease) on dialysis: Plan: Appreciate neurology input and recommendation We will continue hemodialysis Next hemodialysis on Sunday She will be discharged home this morning Plan: hx chronic diastolic heart failure, euvolemic hx CAD status post CABG Hypertension, slightly elevated History of hypertensive urgency Blood pressure is controlled now Hyperlipidemia, statin intolerance COPD, lung status stable Stable Anxiety/mood disorder, 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 Heparin subcu Full code as per patient's prior directives. Discussed with the son in detail who will take her home at 11:00 Admission and Anticipated Discharge Date Admission Date: May 13, 2021 Subjective 05/12/2021 The patient was seen and examined in medical telemetry unit She has been complaining of severe headache with nausea and is not relieved with intravenous Dilaudid She was given 1 dose of Imitrex today Denies any shortness of breath, chest pain and/or palpitation 05/13/2021 The patient was seen and examined in medical telemetry unit Her headache seems to be improved She has been having anxiety symptoms and wants to have her Zoloft restarted 05/14/2021 The patient was seen and examined in medical telemetry unit She is a status post dialysis today and complaining of leg cramps She also feels that she needs to be washed and showered 05/15/2021 The patient was seen and examined in medical telemetry unit She has been feeling better and wants to go home Denies any headache or any other significant symptoms She does not want to stay in the hospital any longer and if not discharged she will sign out AMA She remains medically stable Review of Systems Review of Systems: All systems reviewed and are unremarkable except as noted below Neurologic: Severe headache likely secondary to migraine Physical Exam Physical Exam: Lying in bed with acute distress due to headache Constitutional: + ill appearing and average body habitus Eyes: PERRL, conjunctivae normal, anicteric sclerae ENMT: external ear and nose normal, oropharynx normal Neck: trachea midline, no thyromegaly Respiratory: no respiratory distress Auscultation: + diminished lung sounds and + crackles (Minimal bibasilar crackles) Cardiovascular: Rate/Rhythm: regular rate and regular rhythm; not tachycardic Heart Sounds: normal S1 and normal S2; no murmur Extremities: no edema Gastrointestinal (Abdomen): Inspection/Auscultation: normal bowel sounds; abdomen not distended Percussion/Palpation: abdomen soft; abdomen nontender Musculoskeletal: No acute arthritis in any joint Neurologic: Alert, awake and oriented x3. No focal sensory or no motor deficit appreciated Results & Data Results & Data ([facility]) Vital Signs (Past 12 Hours) Vital Signs Temp Pulse Pulse Resp BP Pulse Ox 05/14/21 23:15 69 05/14/21 22:32 36.8 C 70 20 140/61 93 Medications Administered Current Inpatient Medications Acetaminophen (Acetaminophen 325 Mg Tab) 650 mg PO Q4H PRN PRN Reason: Pain or Fever Stop: 06/10/21 01:39 Last Admin: 05/13/21 10:04 Dose: 650 mg Documented by: Amitriptyline HCl (Amitriptyline Hcl 10 Mg Tab) 10 mg PO HS SILVIA Stop: 06/11/21 20:59 Last Admin: 05/14/21 20:57 Dose: 10 mg Documented by: Amlodipine Besylate (Amlodipine Besylate 5 Mg Tab) 10 mg PO QAM [facility] Stop: 06/10/21 08:59 Last Admin: 05/15/21 07:42 Dose: 10 mg Documented by: Aspirin (Aspirin 81 Mg Ectab) 81 mg PO QAM [facility] Stop: 06/10/21 08:59 Last Admin: 05/15/21 07:43 Dose: 81 mg Documented by: Azelastine HCl (Azelastine Hcl 0.1% Nasal 200 Sprays/27,400 Mcg Btl) 2 sprays DENIZ BID [facility] Stop: 06/10/21 08:59 Last Admin: 05/15/21 07:44 Dose: 2 sprays Documented by: Clopidogrel Bisulfate (Clopidogrel Bisulfate 75 Mg Tab) 75 mg PO DAILY [facility] Stop: 06/10/21 08:59 Last Admin: 05/15/21 07:43 Dose: 75 mg Documented by: Dextrose (Dextrose 50% 50 Ml Syringe) 25 - 50 ml IV UD PRN; Protocol PRN Reason: Hypoglycemia Protocol Stop: 06/10/21 03:49 Fluticasone Propionate (Fluticasone Propionate Na Spr 16 Gm Btl) 1 sprays NA DAILY PRN PRN Reason: Nasal Congestion Stop: 06/10/21 03:49 Fluticasone/Vilanterol (Fluticasone/Vilanterol 100/25mcg 14 Puffs/Inhaler) 1 puffs INH DAILY [facility] Stop: 06/10/21 08:59 Last Admin: 05/15/21 07:43 Dose: 1 puffs Documented by: Furosemide (Furosemide 40 Mg Tab) 40 mg PO QAM [facility] Stop: 06/10/21 08:59 Last Admin: 05/15/21 07:43 Dose: 40 mg Documented by: Glucagon (Glucagon For Inj 1 Mg Vial) 1 mg SQ UD PRN; Protocol PRN Reason: Hypoglycemia Protocol Stop: 06/10/21 03:49 Glucose (Glucose 10 Tabs/Tube) 4 - 8 tabs PO UD PRN; Protocol PRN Reason: Hypoglycemia Protocol Stop: 06/10/21 03:49 Glucose (Glucose 40% Gel 15 Gm Tube) 15 - 30 gm PO UD PRN; Protocol PRN Reason: Hypoglycemia Protocol Stop: 06/10/21 03:49 Heparin Sodium (Porcine) (Heparin Sod 5,000 Unit/0.5 Ml Vial) 5,000 units SQ Q8 [facility] Stop: 06/10/21 05:59 Last Admin: 05/15/21 05:44 Dose: Not Given Documented by: Hydralazine HCl (Hydralazine Tab 50 Mg Tab) 50 mg PO TID [facility] Stop: 06/10/21 08:59 Last Admin: 05/15/21 07:42 Dose: 50 mg Documented by: Hydromorphone HCl (Hydromorphone Inj 0.5 Mg/0.5 Ml Syr) 0.25 mg IV Q6H PRN PRN Reason: Pain Stop: 05/25/21 11:54 Last Admin: 05/15/21 03:04 Dose: 0.25 mg Documented by: Promethazine HCl 12.5 mg/ (Sodium Chloride) 50.5 mls @ 202 mls/hr IV Q6H PRN PRN Reason: Nausea And Vomiting Stop: 06/10/21 03:49 Ceftriaxone Sodium 1,000 mg/ (Dextrose) 50 mls @ 100 mls/hr IV Q24H [facility]; Protocol Stop: 05/18/21 15:59 Last Infusion: 05/14/21 16:30 Dose: Infused Documented by: Insulin Aspart (Insulin Aspart Per Unit) 0 units SC ACHS [facility] Stop: 06/10/21 03:49 Last Admin: 05/15/21 07:44 Dose: Not Given Documented by: Levetiracetam (Levetiracetam 500 Mg Tab) 500 mg PO DAILY@1800 [facility] Stop: 06/10/21 17:59 Last Admin: 05/14/21 17:54 Dose: 500 mg Documented by: Levothyroxine Sodium (Levothyroxine Sodium 25 Mcg Tablet) 25 mcg PO DAILYBB [facility] Stop: 06/10/21 06:29 Last Admin: 05/15/21 05:45 Dose: Not Given Documented by: Loratadine (Loratadine 10 Mg Tab) 5 mg PO DAILY [facility] Stop: 06/10/21 08:59 Last Admin: 05/15/21 07:43 Dose: 5 mg Documented by: Magnesium Oxide (Magnesium Oxide 400 Mg Tab) 400 mg PO QAM [facility] Stop: 06/11/21 14:44 Last Admin: 05/15/21 07:42 Dose: 400 mg Documented by: Melatonin (Melatonin 3 Mg Tab) 3 mg PO HS PRN PRN Reason: Sleep Stop: 06/11/21 21:07 Last Admin: 05/14/21 20:57 Dose: 3 mg Documented by: Miscellaneous (Carbohydrates For Hypoglycemia ) 15 - 30 gm PO UD PRN PRN Reason: Hypoglycemia Protocol Stop: 06/10/21 03:49 Montelukast Sodium (Montelukast Sodium 10 Mg Tablet) 10 mg PO HS [facility]IL[facility]IA Stop: 06/10/21 20:59 Last Admin: 05/14/21 20:58 Dose: 10 mg Documented by: Ropinirole HCl (Ropinirole Hcl 0.25 Mg Tablet) 0.5 mg PO HS SILVIA Stop: 06/11/21 20:59 Last Admin: 05/14/21 20:58 Dose: 0.5 mg Documented by: Sertraline HCl (Sertraline Hcl 50 Mg Tablet) 150 mg PO QAM [facility] Stop: 06/13/21 08:59 Last Admin: 05/15/21 07:43 Dose: 150 mg Documented by: Sevelamer HCl (Sevelamer Hcl 800 Mg Tablet) 800 mg PO TIDM [facility] Stop: 06/10/21 07:59 Last Admin: 05/15/21 07:43 Dose: 800 mg Documented by: (1) Migraine Intractability: intractable Migraine type: unspecified Status migrainosus presence: without status migrainosus Qualified Code(s): G43.919 - Migraine, unspecified, intractable, without status migrainosus
[2021-05-15] MEDS: ACETAMINOPHEN 325 MG TAB PO PRN (09:35)
--- NOTE | 2021-05-16 07:49 | Discharge Summary ---
Date of Service May 16, 2021 Admission HPI Per Admitting Provider History obtained from patient, ER provider, and records. Limited history from patient secondary to lethargy. Medical history significant for chronic diastolic heart failure (EF 70%, TTE 2020), CAD status post CABG, hypertension, hyperlipidemia, COPD, ESRD on HD, DM2 on oral medications, hypothyroidism, seizure disorder, migraine, restless leg syndrome, anxiety/mood disorder, chronic anemia (baseline hemoglobin of 10), past tobacco abuse. Recent confinement 2 weeks ago for fall secondary to possible seizure. Patient discharged on Keppra course. Patient with persistent migraine headache symptoms since leaving the hospital as per outpatient records. Patient seen by neurologist outpatient yesterday. Headaches are probably posttraumatic migrainous as per note. Triptans contraindicated with vascular disease history. Consideration for magnesium oxide and riboflavin Rx. Patient emotional during encounters with social workers and home nursing ye [facility]. Patient having a lot of difficulty at home. Had fallen down from being unsteady and weak with nobody to help her at home as per note. Patient brought to ER for evaluation. Patient complaining of headache symptoms. Unable to answer questions regarding chest pain, syncope, shortness of breath, belly pain. MEDICAL HISTORY: SURGERIES: section, CABG, hysterectomy, appendectomy, tonsillectomy. bowel surgery, vascular procedures, umbilical hernia repair FAMILY HISTORY: Heart disease. PERSONAL AND SOCIAL HISTORY: Remote tobacco abuse. No chronic intake of alcohol or alcoholic beverages. 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 Admission Exam Per Admitting Provider Physical Exam: GENERAL: Lethargic, unkempt, no respiratory distress SKIN: Pallor,, warm HEENT: Pale palpebral conjunctivae, no ptosis, moist buccal mucosa, tongue sticking out of the mouth. NECK : Supple, no tenderness CHEST : Decreased breath sounds, no tenderness HEART : Bradycardic, no obvious murmurs ABDOMEN: Some distention, nontender EXTREMITIES : Minimal LE swelling, no LE tenderness, no other conspicuous deformities noted NEUROLOGIC : Lethargic, mouth asymmetry with tongue sticking out, gait and stance not assessed Principal Diagnosis Generalized weakness-improved, end-stage renal disease on hemodialysis, migraine, hypertension, seizure disorder, type 2 diabetes, COPD Discharge Exam Lying in bed with acute distress due to headache Constitutional + ill appearing and average body habitus Eyes PERRL, conjunctivae normal, anicteric sclerae ENMT external ear and nose normal, oropharynx normal Neck trachea midline, no thyromegaly Respiratory no respiratory distress Auscultation: + diminished lung sounds and + crackles (Minimal bibasilar crackles) Cardiovascular Rate/Rhythm: regular rate and regular rhythm; not tachycardic Heart Sounds: normal S1 and normal S2; no murmur Extremities: no edema Gastrointestinal (Abdomen) Inspection/Auscultation: normal bowel sounds; abdomen not distended Percussion/Palpation: abdomen soft; abdomen nontender Discharge Data Allergies Allergy/AdvReac Type Severity Reaction Status Date / Time bee venom protein (honey bee) Allergy Intermediate MOUTH Verified 05/10/21 23:44 SWELLING prednisone Allergy Intermediate SWELLING Verified 05/10/21 23:44 OG HANDS, ITCHING, RASH tomato Allergy Intermediate Hives Verified 05/10/21 23:44 Penicillins Allergy Mild RASH Verified 05/10/21 23:44 rosuvastatin Allergy Mild SEVERE H/A Verified 05/10/21 23:44 trazodone AdvReac Severe Confusion Verified 05/10/21 23:44 [id number] Reductase AdvReac Mild EFFECTED Verified 05/10/21 23:44 Inhibitor LIVER [Ivdqssj-Wzr-Dgx Reductase STUDIES Inhibitor] Consultations 05/11/21 00:26 ED Decision to Admit Stat 05/11/21 03:35 Consult Nephrology Routine 05/12/21 08:41 Consult Neurology Routine Ordered Studies 05/11/21 04:00 CT head/brain wo con Urgent Hospital Course (1) Lethargy: Likely secondary to home neuropsychotropic meds History of unresponsive episodes likely secondary to polypharmacy but no history of narcotic abuse Functional disability/ambulatory dysfunction Noted to have UTI and ceftriaxone has been started Remains stable and walking around in the room without any symptoms She wants to go home Discussed with the son and she will be discharged home at 11 today (2) Migraine: Has been complaining of headache mostly left-sided since last admission Was given a few doses of Imitrex on discharge during last admission Has been complaining of severe headache and asking for Imitrex Appreciate neurology input and recommendation Imitrex has been discontinued and will start amitriptyline 10 mg at at bedtime We will also provide riboflavin 400 mg daily and magnesium oxide 400 mg daily Denies any more headache- Seems to be controlled now No more attacks of headache (3) Headache: As above Minimal (4) Seizure: Has been on Keppra 5 mg daily and 500 mg after dialysis Continue Keppra (5) DM2 (diabetes mellitus, type 2): DM2 on oral medications, well-controlled as of recent hemoglobin A1c of 6.13 April 2021 Has been on SSI (6) COPD (chronic obstructive pulmonary disease): No acute exacerbation (7) ESRD (end stage renal disease) on dialysis: Appreciate neurology input and recommendation We will continue hemodialysis Next hemodialysis on Sunday She will be discharged home this morning hx chronic diastolic heart failure, euvolemic hx CAD status post CABG Hypertension, slightly elevated History of hypertensive urgency Blood pressure is controlled now Hyperlipidemia, statin intolerance COPD, lung status stable Stable Anxiety/mood disorder, 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 Heparin subcu Full code as per patient's prior directives. Discussed with the son in detail who will take her home at 11:00 Total Time Total Time Spent Total Time Spent (In Minutes): 35 minutes Discharge Plan Discharge Items Patient Disposition: Home - Home Health Services Reason For Visit: WEAKNESS, LETHARGY Discharge Diagnosis: Generalized weakness-improved, end-stage renal disease on hemodialysis, migraine, hypertension, seizure disorder, type 2 diabetes, COPD Condition on Discharge: Fair Activity: Resume your previous activity Non-emergency contact: Primary Care Provider Call non-emergency contact if: you have any medication questions and your symptoms worsen Follow-up/Referrals: Ac Mcmanus, DO [Primary Care Provider] - (You will be called on Sunday with an appointment with your primary care provider within 7 days) Diet: Carb Consistent or DM2, Dialysis Renal and Heart Healthy Addtl Attending Provider Instructions: Please take precautions to avoid fall Take your medications as advised Keep appointments with your healthcare provider and also with dialysis Pending Studies at Discharge: No Stand-Alone Forms: My [employer], Smoking Cessation Medications and DC Order Prescriptions: New amitriptyline 10 mg Tablet 10 mg PO HS Qty: 30 RF: 0 magnesium oxide 400 mg (241.3 mg magnesium) Tablet 400 mg PO QAM Qty: 30 RF: 0 riboflavin (vitamin B2) 400 mg tablet 400 mg PO DAILY Qty: 30 RF: 0 Continued amlodipine [Norvasc] 10 mg tablet 10 mg PO QAM RF: 0 Tradjenta 5 mg Tablet 5 mg PO QAM RF: 0 nitroglycerin [Nitrostat] 0.4 mg Tablet, Sublingual 0.4 mg sublingual UD PRN (Reason: Angina) RF: 0 sertraline [Zoloft] 100 mg Tablet 150 mg PO QAM RF: 0 aspirin [Aspirin Low Dose] 81 mg Tablet,Delayed Release (Dr/Ec) 81 mg PO QAM RF: 0 levothyroxine 25 mcg Tablet 25 mcg PO QAM RF: 0 montelukast [Singulair] 10 mg Tablet 10 mg PO HS RF: 0 fluticasone propionate [Flonase Allergy Relief] 50 mcg/actuation [place],Suspension 1 spray INTRANASAL DAILY PRN (Reason: Nasal Congestion) RF: 0 sevelamer carbonate [Renvela] 800 mg Tablet 800 mg PO TIDM RF: 0 furosemide 40 mg tablet 40 mg PO QAM RF: 0 ipratropium-albuterol 0.5 mg-3 mg(2.5 mg base)/3 mL Solution For Nebulization 3 ml INHALATION Q4H PRN (Reason: Shortness Of Breath) RF: 0 ondansetron HCl 8 mg tablet 8 mg PO TID PRN (Reason: Nausea) RF: 0 ammonium lactate 12 % Cream 1 applic TOPICAL DAILY PRN (Reason: Skin Irritation) RF: 0 epinephrine 0.3 mg/0.3 mL Auto-Injector 0.3 mg IM Q4H PRN (Reason: Anaphylaxis) RF: 0 cholecalciferol (vitamin D3) [Vitamin D3] 25 mcg (1,000 unit) Capsule 25 mcg PO DAILY RF: 0 loperamide 2 mg capsule 2 mg PO DAILY RF: 0 ropinirole 0.25 mg tablet 0.5 mg PO HS RF: 0 albuterol sulfate 90 mcg/actuation HFA aerosol inhaler 2 inh INHALATION Q4H PRN (Reason: Shortness Of Breath) RF: 0 clopidogrel 75 mg tablet 75 mg PO DAILY RF: 0 melatonin 3 mg Tablet 3 mg PO HS Qty: 0 RF: 0 azelastine 137 mcg (0.1 %) aerosol,spray 2 spray INTRANASAL BID RF: 0 Breo Ellipta 100-25 mcg/dose blister with device 1 inh INHALATION DAILY RF: 0 diphenoxylate-atropine [Lomotil] 2.5-0.025 mg Tablet 1 tab PO DAILY PRN (Reason: Diarrhea) RF: 0 loratadine 10 mg Tablet 5 mg PO DAILY RF: 0 levetiracetam [Keppra] 500 mg Tablet 500 mg PO DAILY@1800 Qty: 45 RF: 0 [id number]-oqggyxlctgykk-wqfw 50-325-40 mg Tablet 1 tab PO Q4H PRN (Reason: migraine headache) Qty: 30 RF: 0 metoprolol tartrate 25 mg Tablet 12.5 mg PO BID Qty: 60 RF: 0 hydralazine 50 mg Tablet 50 mg PO TID Qty: 90 RF: 0 Discontinued sumatriptan succinate [Imitrex] 50 mg tablet See Rx Instructions .ROUTE .COMPLEX PRN (Reason: MIGRAINE HEADACHES) RF: 0 Discharge Orders: Discharge Order (Routine); Ordered 05/15/21 Ordered By: Nolvia Salter Admission Data Admit Date/Time: 05/13/21 16:05 Attending Provider: Nolvia Salter Admit Provider: Elroy Ramirez Primary Care Provider: Ac Mcmanus Other Providers: Elroy Ramirez ; Tory Evans ; Kristopher Gonzales Elissa R. ; Lizet Langley Japheth E. ; Seda Hadley ; Baljit Colón Other Interventions: Discharge Summary Assessment (RN) Last Done: 05/15/21 09:44
[2021-05-16 08:12] LABS: Amobarbital, Urine Conf NEGATIVE ng/mL (<100); Butalbital, Urine 308 ng/mL (<100); Pentobarbital, Urine Conf NEGATIVE ng/mL (<100); Phenobarbital, Urine NEGATIVE ng/mL (<100); Secobarbital, Urine Conf NEGATIVE ng/mL (<100)
== END 2021-05-15 10:40 | disposition home health service (06) | DRG 102 ==
LOC: ED 22:51 → EDINP 22:51 → 2N 05-11 20:49

== ENCOUNTER 2021-06-11 07:46 | Inpatient (IN) ==
--- NOTE | 2021-06-11 07:55 | Emergency Department Note ---
Impression & Plan ESRD (end stage renal disease) on dialysis, Anemia, Nausea & vomiting, Hypertension ED Provider Note LocationNAME: MIKE NGUYEN AGE: 71 SEX: F : 1950 ARRIVES VIA: Walk-In INFORMANT: patient, ED PROVIDER(S): ED TEMP Chief Complaint: Nausea, vomiting, diarrhea HPI: Patient presents with the above symptoms and states that it has been ongoing for approximately 1 week in duration. Patient states that she has been vomiting most days all day. Patient denies any fevers or chills. Patient is vaccinated for COVID and denies any known sick contacts. Patient is ESRD on dialysis but is missed all 3 of her appointments this week including her morning appointment this morning 5 AM. The patient states that she was concerned about giving her illness to other people within the dialysis unit where she goes [place]. Patient denies any alcohol or tobacco use. Patient does still make urine but denies any dysuria. The patient does complain of chest discomfort but not exertional. Patient does have a known history of triple bypass per patient. Patient has not been taking her medications that she has been unable to tolerate them. Patient denies any stream or well water or antibiotic use. The patient has not been able to improve her symptoms at all. Patient does follow with Dr. Boles with nephrology. ROS: See HPI for pertinent positives and negatives. A total of 10 systems were review ed and otherwise negative. Past medical history: See below Surgical history: See below Social history: See below Physical Exam: GENERAL: Mildly ill in appearance,NAD, non-toxic. EYE EXAM: Normal conjunctiva. PERRL, no anisocoria and EOM's grossly intact w/o pain. OROPHARYNX: Dry mucus membranes. Grossly normal dentition. NECK: Supple, no nuchal rigidity, no adenopathy, non-tender. No signs of meningismus. LUNGS: Clear to auscultation. Normal chest wall mechanics. HEART: NSR, no MRG. ABDOMEN: Abdomen soft, mild diffuse discomfort but more localized in the epigastrium, normo-active bowel sounds, no masses, no rebound or guarding. BACK: No CVA TTP. SKIN: No rashes and no bruising. UPPER EXTREMITIES: Upper extremities are grossly normal. LOWER EXTREMITIES: Grossly normal, no edema. Negative Homans' sign bilaterally. NEURO EXAM: A&O x3, cranial nerves II-XII grossly intact, normal speech, moves all 4 extremities on command w/o issue. Differential diagnoses: Appendicitis, ovarian cyst, ovarian torsion, ectopic , TOA, PID, infections, diverticulitis, UTI, obstruction, mesenteric ischemia, aortic pathology, inflammatory bowel disease, renal colic, PUD, pancreatitis, biliary pathology, hernia, volvulus, constipation, as well as other pathologies. Course: Patient was seen and evaluated the bedside. Full history physical exam was performed. EKG interpreted by me Sinus bradycardia, rate of 57, normal intervals, normal axis, T wave inversion in V2. No obvious ST changes. Imaging Studies: See Below Cardiac monitoring: An order was placed for continuous cardiac monitoring. The monitor shows a rate of 62 with sinus rhythm. MDM: Patient was seen due to concern for nausea vomiting diarrhea and abdominal pain. Blood work was obtained. The patient was ordered IV, nausea medication as well as some hydralazine as the patient has not been taking her medications at home given her nausea vomiting and diarrhea. Patient is in white count with anemia of 8.3. Patient's platelet count is unremarkable. Kidney function with a creat of 4.8 and potassium of 5. Patient was ordered a dose of Lasix. Calcium at 7.8 was ordered for repleted. Troponin 0.03 but not elevated. Covid negative. His chest x-ray shows some small amount of edema. Patient CT shows no acute abnormality. Past Med/Surg History Medical History Anemia Anxiety Asthma Uses albuterol daily. Atrial fibrillation FOLLOWED BY DR. CARROLL AV fistula Depression Diabetes mellitus, type 2 oral med End stage renal disease receiving hemodiaylsis Sunday//Saturdays in [place]. Follows Dr. Gonzales ([place], [place]). Endometriosis stage 4 GERD (gastroesophageal reflux disease) Hyperlipidemia Hypertension no medications currently - experiencing hypotension Hypothyroidism Kidney failure STAGE 4 NO DIALYSIS Migraine Myocardial Infarction 2007 Osteoarthritis Seizure Stroke X 2 2013 Surgical History History of abdominal surgery UMBILICAL MESH REMOVED (NECROTIC) History of adenoidectomy History of appendectomy History of martha hole surgery 2013 AFTER CVA TO "REMOVED FLUID" History of cardiac cath 2007 AT [facility] History of cataract surgery RT/LEFT History of section X 3 History of cholecystectomy History of colonoscopy History of coronary artery bypass graft 2007 3 [facility] [place] History of esophagogastroduodenoscopy (EGD) History of herniorrhaphy X 3 REPAIRS History of surgery LEFT FOOT/ANKLE FX REPAIR S/P FALL (HARDWARE) History of tonsillectomy History of tooth extraction History of total abdominal hysterectomy and bilateral salpingo-oophorectomy History of total knee replacement LEFT Hx of hand surgery LEFT HAND SURGERY "TOOK BONES OUT" S/P arteriovenous (AV) fistula creation Left arm S/P panniculectomy Family History Brother Family history of diabetes mellitus Coronary heart disease Mother Family history of diabetes mellitus Other No family history of adverse response to anesthesia Social History Smoking Status: Former smoker Tobacco Type: Cigarettes Cigarettes Per Day: 1; Second Hand Exposure: Yes; Hx Alcohol Use: No Hx Substance Use: No Preferred Language: Slovenian Communication Ability: Effective Visual Impairment: No Limitations 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 Beliefs That Will Affect Care: None marital status: / Current Living Situation: Alone How many Children do You have: 3 Feels Safe at Home: Yes Safety Concerns: Feels Safe At This Time Assistive Devices: Walker Allergies Allergies Allergy/AdvReac Type Severity Reaction Status Date / Time bee venom protein (honey bee) Allergy Intermediate MOUTH Verified 05/10/21 23:44 SWELLING prednisone Allergy Intermediate SWELLING Verified 05/10/21 23:44 OG HANDS, ITCHING, RASH tomato Allergy Intermediate Hives Verified 05/10/21 23:44 Penicillins Allergy Mild RASH Verified 05/10/21 23:44 rosuvastatin Allergy Mild SEVERE H/A Verified 05/10/21 23:44 trazodone AdvReac Severe Confusion Verified 05/10/21 23:44 Nryoabg-PHA-HtU Reductase AdvReac Mild EFFECTED Verified 05/10/21 23:44 Inhibitor LIVER [Oqrlkka-Udk-Vee Reductase STUDIES Inhibitor] Home Meds Home Medications Medication Instructions Recorded Confirmed aspirin 81 mg tablet,delayed 81 mg PO QAM 02/18/18 06/11/21 release (Aspirin Low Dose) fluticasone propionate 50 1 spray INTRANASAL DAILY PRN 02/18/18 06/11/21 mcg/actuation nasal spray,suspension (Flonase Allergy Relief) levothyroxine 25 mcg tablet 25 mcg PO QAM 02/18/18 06/11/21 montelukast 10 mg tablet 10 mg PO HS 02/18/18 06/11/21 (Singulair) sertraline 100 mg tablet (Zoloft) 150 mg PO QAM 02/18/18 06/11/21 sevelamer carbonate 800 mg tablet 800 mg PO TIDM 03/26/19 06/11/21 (Renvela) amlodipine 10 mg tablet (Norvasc) 10 mg PO QAM 03/23/20 06/11/21 linagliptin 5 mg tablet (Tradjenta) 5 mg PO QAM 03/23/20 06/11/21 nitroglycerin 0.4 mg sublingual 0.4 mg SUBLINGUAL UD PRN 03/23/20 06/11/21 tablet (Nitrostat) furosemide 40 mg tablet 40 mg PO QAM 01/07/21 06/11/21 ammonium lactate 12 % topical cream 1 applic TOPICAL DAILY PRN 01/25/21 06/11/21 cholecalciferol (vitamin D3) 25 25 mcg PO DAILY 01/25/21 06/11/21 mcg (1,000 unit) capsule (Vitamin D3) epinephrine 0.3 mg/0.3 mL 0.3 mg IM Q4H PRN 01/25/21 06/11/21 injection, auto-injector ipratropium 0.5 mg-albuterol 3 mg 3 ml INHALATION Q4H PRN 01/25/21 06/11/21 (2.5 mg base)/3 mL nebulization soln ondansetron HCl 8 mg tablet 8 mg PO TID PRN 01/25/21 06/11/21 albuterol sulfate 90 mcg/actuation 2 inh INHALATION Q4H PRN 04/08/21 06/11/21 aerosol inhaler azelastine 137 mcg (0.1 %) nasal 2 spray INTRANASAL BID 04/08/21 06/11/21 spray aerosol clopidogrel 75 mg tablet 75 mg PO DAILY 04/08/21 06/11/21 fluticasone furoate 100 1 inh INHALATION DAILY 04/08/21 06/11/21 mcg-vilanterol 25 mcg/dose inhalation powder (Breo Ellipta) loperamide 2 mg capsule 2 mg PO DAILY 04/08/21 06/11/21 melatonin 3 mg tablet 3 mg PO HS #0 04/08/21 06/11/21 ropinirole 0.25 mg tablet 0.5 mg PO HS 04/08/21 06/11/21 diphenoxylate-atropine 2.5 1 tab PO DAILY PRN 04/24/21 06/11/21 mg-0.025 mg tablet (Lomotil) loratadine 10 mg tablet 5 mg PO DAILY 04/24/21 06/11/21 Previous Rx's Medication Instructions Recorded tmbmiplcsp-gpjhlhsgdxcqd-zwupkmyb 1 tab PO Q4H PRN #30 tab 05/06/21 50 mg-325 mg-40 mg tablet hydralazine 50 mg tablet 50 mg PO TID #90 tab 05/06/21 levetiracetam 500 mg tablet 500 mg PO DAILY@1800 #45 tab 05/06/21 (Keppra) metoprolol tartrate 25 mg tablet 12.5 mg PO BID #60 tab 05/06/21 amitriptyline 10 mg tablet 10 mg PO HS #30 tab 05/15/21 magnesium oxide 400 mg (241.3 mg 400 mg PO QAM #30 tab 05/15/21 magnesium) tablet riboflavin (vitamin B2) 400 mg 400 mg PO DAILY #30 tab 05/15/21 tablet Results & Data (ED) Vital Signs Vital Signs - 24 hr 06/11/21 07:53 06/11/21 08:09 06/11/21 08:10 Temperature 36.8 C Temperature Source Temporal Artery Scan Pulse Rate 62 Pulse Rate [Apical] 58 L Respiratory Rate 18 18 Respiratory Effort / Characteristics Non-Labored Spontaneous Respiratory Depth Normal Blood Pressure 206/79 H Blood Pressure [Right Arm] 216/81 H Blood Pressure Mean 121 Blood Pressure Mean [Right Arm] 126 Pulse Oximetry 96 96 96 Oxygen Delivery Method Room Air Room Air Room Air Oxygen Flow Rate Sepsis Recent Fever Within 48 Hours No Sepsis New/Unexplained Change in Mental Status No Sepsis Action Taken by Nursing No Action Required 06/11/21 08:30 06/11/21 10:00 Temperature Temperature Source Pulse Rate Pulse Rate [Apical] 74 66 Respiratory Rate 24 18 Respiratory Effort / Characteristics Non-Labored Spontaneous Non-Labored Spontaneous Respiratory Depth Normal Normal Blood Pressure Blood Pressure [Right Arm] 225/127 H 198/108 H Blood Pressure Mean Blood Pressure Mean [Right Arm] 159 138 Pulse Oximetry 96 94 Oxygen Delivery Method Room Air Nasal Cannula Oxygen Flow Rate 2 Sepsis Recent Fever Within 48 Hours Sepsis New/Unexplained Change in Mental Status Sepsis Action Taken by [facility] Medications Current Medication List: was personally reviewed by me Laboratory Data Attestation: I reviewed the patient's lab results. Result diagrams: 06/11/21 08:13 06/11/21 09:47 Lab Results 06/11/21 06/11/21 06/11/21 Range/Units 08:13 08:13 08:13 WBC 6.47 (4.8-10.8) K/uL RBC 2.66 L (4.2-5.4) M/uL Hgb 8.3 L (12.0-16.0) g/dL Hct 25.2 L (37-47) % MCV 94.7 (80-100) fL MCH 31.2 (25-34) pg MCHC 32.9 (32-36) g/dL RDW Std Deviation 55.1 H (36.4-46.3) fL RDW Coeff of Odilon 16.1 H (11.5-14.5) % Plt Count 132 (130-400) K/uL MPV 9.9 (7.4-10.4) fL Immature Gran % (Auto) 0.2 % Neut % (Auto) 81.8 % Lymph % (Auto) 11.0 % [place] % (Auto) 5.1 % Eos % (Auto) 1.7 % Baso % (Auto) 0.2 % Neut # (Auto) 5.30 (1.4-6.5) K/uL Lymph # (Auto) 0.71 L (1.2-3.4) K/uL [place] # (Auto) 0.33 (0.11-0.59) K/uL Eos # (Auto) 0.11 (0-0.5) K/uL Baso # (Auto) 0.01 (0-0.2) K/uL Immature Gran # (Auto) 0.01 (0.00-0.02) K/uL Sodium 135 L (136-145) mmol/L Potassium (3.5-5.1) mmol/L Chloride 105 (98-107) mmol/L Carbon Dioxide 23 (21-32) mmol/L Anion Gap 7 (3-11) BUN 76 H (6-23) mg/dl Creatinine 4.85 H* (0.6-1.2) mg/dl Est Cr Clr Drug Dosing 8.9 ml/min Est GFR ( Amer) 9.6 ml/min Est GFR (Non-Af Amer) 8.3 ml/min BUN/Creatinine Ratio 15.7 (10-20) Glucose 186 H (70-99(Fasting)) mg/dl Calcium 7.8 L (8.5-10.1) mg/dl Phosphorus 4.9 (2.5-4.9) mg/dl Magnesium 2.4 (1.7-2.4) mg/dl Total Bilirubin 0.6 (0.2-1.0) mg/dl AST (13-39) U/L ALT 13 (7-52) U/L Alkaline Phosphatase 89 (34-104) U/L Troponin I 0.03 (0-0.04) ng/ml Total Protein 6.8 (6.0-8.3) gm/dl Albumin 3.6 (3.4-5.0) gm/dl Globulin 3.2 (2.5-4.0) gm/dl Albumin/Globulin Ratio 1.1 (0.9-2) Lipase 55 (11-82) U/L SARS-CoV-2, RNA, NAAT NEGATIVE (NEGATIVE) 06/11/21 Range/Units 09:47 WBC (4.8-10.8) K/uL RBC (4.2-5.4) M/uL Hgb (12.0-16.0) g/dL Hct (37-47) % MCV (80-100) fL MCH (25-34) pg MCHC (32-36) g/dL RDW Std Deviation (36.4-46.3) fL RDW Coeff of Odilon (11.5-14.5) % Plt Count (130-400) K/uL MPV (7.4-10.4) fL Immature Gran % (Auto) % Neut % (Auto) % Lymph % (Auto) % [place] % (Auto) % Eos % (Auto) % Baso % (Auto) % Neut # (Auto) (1.4-6.5) K/uL Lymph # (Auto) (1.2-3.4) K/uL [place] # (Auto) (0.11-0.59) K/uL Eos # (Auto) (0-0.5) K/uL Baso # (Auto) (0-0.2) K/uL Immature Gran # (Auto) (0.00-0.02) K/uL Sodium (136-145) mmol/L Potassium 5.0 (3.5-5.1) mmol/L Chloride (98-107) mmol/L Carbon Dioxide (21-32) mmol/L Anion Gap (3-11) BUN (6-23) mg/dl Creatinine (0.6-1.2) mg/dl Est Cr Clr Drug Dosing ml/min Est GFR ( Amer) ml/min Est GFR (Non-Af Amer) ml/min BUN/Creatinine Ratio (10-20) Glucose (70-99(Fasting)) mg/dl Calcium (8.5-10.1) mg/dl Phosphorus (2.5-4.9) mg/dl Magnesium (1.7-2.4) mg/dl Total Bilirubin (0.2-1.0) mg/dl AST 12 L (13-39) U/L ALT (7-52) U/L Alkaline Phosphatase (34-104) U/L Troponin I (0-0.04) ng/ml Total Protein (6.0-8.3) gm/dl Albumin (3.4-5.0) gm/dl Globulin (2.5-4.0) gm/dl Albumin/Globulin Ratio (0.9-2) Lipase (11-82) U/L SARS-CoV-2, RNA, NAAT (NEGATIVE) Administered Medications Morphine Sulfate (Morphine Sulfate 2 Mg/Ml Carp) 1 mg IV Q6H PRN PRN Reason: Pain Stop: 06/25/21 12:09 Last Admin: 06/11/21 12:54 Dose: 1 mg Documented by: [id number] Discontinued Medications Fentanyl Citrate (Fentanyl Citrate 100 Mcg/2 Ml Vial) 25 mcg IV NOW STA Stop: 06/11/21 09:38 Last Admin: 06/11/21 09:56 Dose: 25 mcg Documented by: [id number] Furosemide (Furosemide 40 Mg/4 Ml Vial) 40 mg IV ONE ONE Stop: 06/11/21 10:51 Last Admin: 06/11/21 11:04 Dose: 40 mg Documented by: [id number] Hydralazine HCl (Hydralazine Hcl 20 Mg/Ml Vial) 10 mg IV NOW STA Stop: 06/11/21 08:47 Last Admin: 06/11/21 09:01 Dose: 10 mg Documented by: [id number] Sodium Chloride (Nss) 500 mls @ 999 mls/hr IV .Q31M STA Stop: 06/11/21 08:39 Last Infusion: 06/11/21 09:37 Dose: 0 mls/hr Documented by: [id number] Admin: 06/11/21 08:36 Dose: 999 mls/hr Documented by: [id number] Calcium Gluconate () 1,000 mg in 60 mls @ 240 mls/hr IV NOW STA Stop: 06/11/21 09:37 Last Infusion: 06/11/21 10:10 Dose: 0 mls/hr Documented by: [id number] Admin: 06/11/21 09:55 Dose: 240 mls/hr Documented by: [id number] Metoprolol Tartrate (Metoprolol Tartrate 1 Mg/Ml Vial) 10 mg IV NOW STA; Protocol Stop: 06/11/21 11:00 Last Admin: 06/11/21 11:04 Dose: 10 mg Documented by: [id number] Morphine Sulfate (Morphine Sulfate 2 Mg/Ml Carp) 2 mg IV NOW STA Stop: 06/11/21 08:42 Last Admin: 06/11/21 08:58 Dose: 2 mg Documented by: [id number] Ondansetron HCl (Ondansetron Inj 2 Mg/Ml 2 Ml Vial) 4 mg IV NOW STA Stop: 06/11/21 08:42 Last Admin: 06/11/21 08:55 Dose: 4 mg Documented by: [id number] Imaging Data Radiologist's Impression: Abdomen/Pelvis CT 06/11/21 08:09 CT abd pelvis wo con CLINICAL HISTORY: n/v/d, h/o ESRD TECHNIQUE: Helical axial images of the abdomen and pelvis were obtained. Automated dose lowering techniques and/or adjustment according to patient size were utilized for this exam. This exam was performed without intravenous contrast. COMPARISON: Comparison is made to CT abdomen pelvis 04/08/2021 FINDINGS: Lower chest: Bibasilar atelectasis versus scarring is seen. Cardiomegaly is seen. Liver: Unremarkable. No focal lesions are seen. Gallbladder and biliary tree: Patient is status post cholecystectomy. No intra- or extrahepatic biliary ductal dilation. Pancreas: Fatty replacement of the pancreas is seen. Spleen: Unremarkable. Adrenals: Unremarkable. Kidneys and ureters: Nonobstructive nephrolithiasis is seen. The kidneys are mildly atrophic. Bladder: Limited evaluation due to underdistention. Reproductive organs: Patient is status post hysterectomy. Bowel: Unremarkable appearance of the bowel. The appendix is normal. Lymph nodes Retroperitoneal: Unremarkable. Mesenteric: Unremarkable. Pelvic: Unremarkable. Peritoneum: Minimal diffuse fat stranding is seen, increased from prior exam. Vessels: Atherosclerotic calcifications are seen. Abdominal wall: Soft tissue edema is seen. Bones: Degenerative changes in the visualized spine. IMPRESSION: No acute abnormality and in particular no evidence of bowel obstruction. Minimal diffuse peritoneal stranding and mild anasarca is seen which may be related to fluid overload. Mildly atrophic appearance of the bilateral kidneys. ACT 112: Negative or not required by law. Electronically signed by: Nirav Wall M.D. 06/11/2021 9:39 AM Chest X-Ray 06/11/21 08:09 XR chest 1V portable CLINICAL HISTORY: upper ab pain TECHNIQUE: Single frontal radiograph of the chest was obtained. Comparison: Comparison is made to chest one view 05/10/2021 FINDINGS: Stable median sternotomy wires including fractured second wire. Cardiomegaly is noted. Calcified aortic knob is seen. Prominence and cephalization of the vasculature is seen. No evidence of pleural effusion or pneumothorax. IMPRESSION: Mild pulmonary edema. No evidence of pneumoperitoneum. ACT 112: Negative or not required by law. Electronically signed by: Nirav Wall M.D. 06/11/2021 8:50 AM Discharge Plan Visit Data Chief Complaint: Illness Stated Complaint: SOB ED Provider: Jhonny Zapata Discharge Problem: ESRD (end stage renal disease) on dialysis, Anemia, Nausea & vomiting, Hype rtension Patient Disposition: Admitted As Inpatient Discharge Instructions Interventions: ED Discharge Assessment Last Done: 06/11/21 11:20
[2021-06-11] MEDS ORDERED: SODIUM CHLORIDE 0.9% 500 ML IV STA (08:09)
[2021-06-11 08:36] LABS: Basophils # (auto) 0.01 K/uL (0-0.2); Basophils % (auto) 0.2 %; Eosinophils # (auto) 0.11 K/uL (0-0.5); Eosinophils % (auto) 1.7 %; Hematocrit (blood only) 25.2 % (37-47); Hemoglobin 8.3 g/dL (12.0-16.0); Immature Granulocytes # (auto) 0.01 K/uL (0.00-0.02); Immature Granulocytes % (auto) 0.2 %; Lymphocytes # (auto) 0.71 K/uL (1.2-3.4); Mean Corpuscular Hemoglobin 31.2 pg (25-34); Mean Corpuscular Hgb Conc 32.9 g/dL (32-36); Mean Corpuscular Volume 94.7 fL (80-100); Mean Platelet Volume 9.9 fL (7.4-10.4); Monocytes # (auto) 0.33 K/uL (0.11-0.59); Monocytes % (auto) 5.1 %; Neutrophils % (auto) 81.8 %; Platelet Count 132 K/uL (130-400); RDW Coefficient of Variation 16.1 % (11.5-14.5); RDW Standard Deviation 55.1 fL (36.4-46.3); Red Blood Count 2.66 M/uL (4.2-5.4); White Blood Count 6.47 K/uL (4.8-10.8)
[2021-06-11] MEDS ORDERED: MoRPHine SULFATE 2 MG/ML CARP IV STA (08:41)
[2021-06-11] MEDS ORDERED: ONDANSETRON INJ 2 MG/ML 2 ML VIAL IV STA (08:41)
[2021-06-11] MEDS ORDERED: hydrALAZINE HCL 20 MG/ML VIAL IV STA (08:46)
--- NOTE | 2021-06-11 08:51 | XRay Report ---
XR chest 1V portable CLINICAL HISTORY: upper ab pain TECHNIQUE: Single frontal radiograph of the chest was obtained. Comparison: Comparison is made to chest one view 05/10/2021 FINDINGS: Stable median sternotomy wires including fractured second wire. Cardiomegaly is noted. Calcified aort ic knob is seen. Prominence and cephalization of the vasculature is seen. No evidence of pleural effu vandana or pneumothorax. IMPRESSION: Mild pulmonary edema. No evidence of pneumoperitoneum. ACT 112: Negative or not required by law. Electronically signed by: Nirav Wall M.D. 06/11/2021 8:50 AM
[2021-06-11 09:06] LABS: Albumin Globulin Ratio 1.1 (0.9-2); Albumin Level 3.6 gm/dl (3.4-5.0); BUN Creatinine Ratio 15.7 (10-20); Bilirubin,Total 0.6 mg/dl (0.2-1.0); Calcium 7.8 mg/dl (8.5-10.1); Creatinine Clr Calc Pharmacy 8.9 ml/min; Est GFR (African American) 9.6 ml/min; Est GFR (Non-African American) 8.3 ml/min; Globulin 3.2 gm/dl (2.5-4.0); Magnesium 2.4 mg/dl (1.7-2.4); Phosphorus 4.9 mg/dl (2.5-4.9); Total Protein 6.8 gm/dl (6.0-8.3); Troponin I 0.03 ng/ml (0-0.04)
[2021-06-11] MEDS ORDERED: CALCIUM GLUCONATE 1,000 MG/60 ML BAG IV STA (09:23)
[2021-06-11] MEDS ORDERED: fentaNYL citrate 100 MCG/2 ML VIAL IV STA (09:37)
--- NOTE | 2021-06-11 09:40 | CT Scan Report ---
CT abd pelvis wo con CLINICAL HISTORY: n/v/d, h/o ESRD TECHNIQUE: Helical axial images of the abdomen and pelvis were obtained. Automated dose lowering tech niques and/or adjustment according to patient size were utilized for this exam. This exam was perfor med without intravenous contrast. COMPARISON: Comparison is made to CT abdomen pelvis 04/08/2021 FINDINGS: Lower chest: Bibasilar atelectasis versus scarring is seen. Cardiomegaly is seen. Liver: Unremarkable. No focal lesions are seen. Gallbladder and biliary tree: Patient is status post cholecystectomy. No intra- or extrahepatic bilia ry ductal dilation. Pancreas: Fatty replacement of the pancreas is seen. Spleen: Unremarkable. Adrenals: Unremarkable. Kidneys and ureters: Nonobstructive nephrolithiasis is seen. The kidneys are mildly atrophic. Bladder: Limited evaluation due to underdistention. Reproductive organs: Patient is status post hysterectomy. Bowel: Unremarkable appearance of the bowel. The appendix is normal. Lymph nodes Retroperitoneal: Unremarkable. Mesenteric: Unremarkable. Pelvic: Unremarkable. Peritoneum: Minimal diffuse fat stranding is seen, increased from prior exam. Vessels: Atherosclerotic calcifications are seen. Abdominal wall: Soft tissue edema is seen. Bones: Degenerative changes in the visualized spine. IMPRESSION: No acute abnormality and in particular no evidence of bowel obstruction. Minimal diffuse peritoneal s tranding and mild anasarca is seen which may be related to fluid overload. Mildly atrophic appearance of the bilateral kidneys. ACT 112: Negative or not required by law. Electronically signed by: Nirav Wall M.D. 06/11/2021 9:39 AM
[2021-06-11] MEDS ORDERED: GLUCOSE 10 TABS/TUBE PO PRN (10:36)
[2021-06-11] MEDS ORDERED: CARBOHYDRATES FOR HYPOGLYCEMIA PO PRN (10:36)
[2021-06-11] MEDS ORDERED: GLUCAGON FOR INJ 1 MG VIAL SQ PRN (10:36)
[2021-06-11] MEDS ORDERED: GLUCOSE 40% GEL 15 GM TUBE PO PRN (10:36)
[2021-06-11] MEDS ORDERED: DEXTROSE 50% 50 ML SYRINGE IV PRN (10:36)
[2021-06-11] MEDS ORDERED: FUROSEMIDE 40 MG/4 ML VIAL IV ONE (10:50)
[2021-06-11] MEDS ORDERED: METOPROLOL TARTRATE 1 MG/ML VIAL IV STA (10:59)
[2021-06-11] MEDS ORDERED: NITROGLYCERIN SL 0.4 MG/TAB TAB SL PRN (11:43)
--- NOTE | 2021-06-11 11:50 | History & Physical Report ---
Date of Service June 11, 2021 Assessment & Plan (1) Hypertensive emergency: (2) Atrial fibrillation with RVR: (3) Nausea and vomiting: (4) ESRD (end stage renal disease) on dialysis: (5) Anemia: (6) DM2 (diabetes mellitus, type 2): (7) Anxiety: (8) Depression: (9) History of CVA (cerebrovascular accident): (10) COPD (chronic obstructive pulmonary disease): (11) GERD (gastroesophageal reflux disease): (12) Seizure: Plan: Pt is a 71 y/o F with hx of DMII, ESRD on HD (non-compliant), CAD s/p CABG, COPD, Afib (not on AC did not tolerate coumadin), HTN, Hypothyroidism, HLD, RLS, Chronic Anemia (bl: 10), Seizure, Depression/Anxiety, GERD, Insomnia, RLS, Migraine admitted for 1 week of N/V, diarrhea with abd pain and missed dialysis sessions. HTN emergency: -Likely 2/2 Missed HD and HTN meds -pt is sched for dialysis today -s/p Hydralazine and Lopressor 10mg IV -continue home HTN meds -admit to PCU tele -pt recently had multiple admissions thus will consult case management to help with social need assessment -PT/OT eval Afib with RVR: -developed afib with RVR after receiving hydralazine -initial trop is neg -pt have not taken metoprolol for 1 week -HR and BP responded well to Lopressor 10mg IV -will continue home metoprolol dose -if continues to have elevated HR (>110) then will consult cardiology -admitted to PCU tele N/V and diarrhea with abd pain: -COVID neg - CT abd and CXR: no acute finding -likely 2/2 Viral gastroenteritis vs uremia (BUN of 76) ---- normal mental status at this time -will do Zofran IV prn - start the pt on protonix daily -will do regular diet - no IV fluids at this time ESRD on HD (non-compliant): -missed 3 sessions -L Forearm access -sched to receive dialysis today -electrolytes are stable -nephro consulted Chronic Anemia: -baseline hgb is 10 -today hgb is 8.3: likely 2/2 dilution from volume overload ---- however will get FOBT and trend hgb DMII: -hold tradjenta -ISS CAD s/p CABG and hx of CVA: -currently on DAPT COPD/Seizure/migraine: -continue home meds Depression/Anxiety: -c/w home meds Diet: Renal and DMII diet DVT PPx:Heparin Code Status: FULL CODE Emergency Contact: SOn- haydee [phone] History of Present Illness Chief Complaint: N/V and Diarrhea Primary Care Provider: Dr. Gonzales Pt is a 71 y/o F with hx of DMII, ESRD on HD (non-compliant), CAD s/p CABG, COPD, Afib (not on AC did not tolerate coumadin), HTN, Hypothyroidism, HLD, RLS, Chronic Anemia (bl: 10), Seizure, Depression/Anxiety, GERD, Insomnia, RLS, Migraine came to the ER due to 1 week hx of N/V and diarrhea. Pt was seen in the clinic yesterday and recommended to go to the ER for severe HTN and missed HD. Per pt she came to the ER yesterday but left w/o seeing. She has been having N/V and Diarrhea for 1 week. Vomiting is NBNB and last episode was 2 days ago. Diarrhea is NB and last episode also 2 days ago. Pt continues to have nausea associated with diffuse abd pain, bloating, L lower chest wall pain, cough and SOB. Due to nausea, she has not been eating much and have not taken any medication for 1 week. She also missed 1 week of HD sessions (#3). Per pt she lives alone. Walks w/o any help, receive help from son who lives close by. Allergies Allergy/AdvReac Type Severity Reaction Status Date / Time bee venom protein (honey bee) Allergy Intermediate MOUTH Verified 05/10/21 23:44 SWELLING prednisone Allergy Intermediate SWELLING Verified 05/10/21 23:44 OG HANDS, ITCHING, RASH tomato Allergy Intermediate Hives Verified 05/10/21 23:44 Penicillins Allergy Mild RASH Verified 05/10/21 23:44 rosuvastatin Allergy Mild SEVERE H/A Verified 05/10/21 23:44 trazodone AdvReac Severe Confusion Verified 05/10/21 23:44 Jcydzxz-UBJ-PgG Reductase AdvReac Mild EFFECTED Verified 05/10/21 23:44 Inhibitor LIVER [Ultldzr-Khu-Fjw Reductase STUDIES Inhibitor] Home Medications Medication Instructions Recorded Confirmed Type aspirin 81 mg tablet,delayed 81 mg PO QAM 02/18/18 06/11/21 History release (Aspirin Low Dose) fluticasone propionate 50 1 spray INTRANASAL DAILY PRN 02/18/18 06/11/21 History mcg/actuation nasal spray,suspension (Flonase Allergy Relief) levothyroxine 25 mcg tablet 25 mcg PO QAM 02/18/18 06/11/21 History montelukast 10 mg tablet 10 mg PO HS 02/18/18 06/11/21 History (Singulair) sertraline 100 mg tablet (Zoloft) 150 mg PO QAM 02/18/18 06/11/21 History sevelamer carbonate 800 mg tablet 800 mg PO TIDM 03/26/19 06/11/21 History (Renvela) amlodipine 10 mg tablet (Norvasc) 10 mg PO QAM 03/23/20 06/11/21 History linagliptin 5 mg tablet (Tradjenta) 5 mg PO QAM 03/23/20 06/11/21 History nitroglycerin 0.4 mg sublingual 0.4 mg SUBLINGUAL UD PRN 03/23/20 06/11/21 History tablet (Nitrostat) furosemide 40 mg tablet 40 mg PO QAM 01/07/21 06/11/21 History ammonium lactate 12 % topical cream 1 applic TOPICAL DAILY PRN 01/25/21 06/11/21 History cholecalciferol (vitamin D3) 25 25 mcg PO DAILY 01/25/21 06/11/21 History mcg (1,000 unit) capsule (Vitamin D3) epinephrine 0.3 mg/0.3 mL 0.3 mg IM Q4H PRN 01/25/21 06/11/21 History injection, auto-injector ipratropium 0.5 mg-albuterol 3 mg 3 ml INHALATION Q4H PRN 01/25/21 06/11/21 History (2.5 mg base)/3 mL nebulization soln ondansetron HCl 8 mg tablet 8 mg PO TID PRN 01/25/21 06/11/21 History albuterol sulfate 90 mcg/actuation 2 inh INHALATION Q4H PRN 04/08/21 06/11/21 History aerosol inhaler azelastine 137 mcg (0.1 %) nasal 2 spray INTRANASAL BID 04/08/21 06/11/21 History spray aerosol clopidogrel 75 mg tablet 75 mg PO DAILY 04/08/21 06/11/21 History fluticasone furoate 100 1 inh INHALATION DAILY 04/08/21 06/11/21 History mcg-vilanterol 25 mcg/dose inhalation powder (Breo Ellipta) loperamide 2 mg capsule 2 mg PO DAILY 04/08/21 06/11/21 History melatonin 3 mg tablet 3 mg PO HS #0 04/08/21 06/11/21 History ropinirole 0.25 mg tablet 0.5 mg PO HS 04/08/21 06/11/21 History diphenoxylate-atropine 2.5 1 tab PO DAILY PRN 04/24/21 06/11/21 History mg-0.025 mg tablet (Lomotil) loratadine 10 mg tablet 5 mg PO DAILY 04/24/21 06/11/21 History rvegajrdhd-fkkwnaskiisww-pvmryxad 1 tab PO Q4H PRN #30 tab 05/06/21 06/11/21 Rx 50 mg-325 mg-40 mg tablet hydralazine 50 mg tablet 50 mg PO TID #90 tab 05/06/21 06/11/21 Rx levetiracetam 500 mg tablet 500 mg PO DAILY@1800 #45 tab 05/06/21 06/11/21 Rx (Keppra) metoprolol tartrate 25 mg tablet 12.5 mg PO BID #60 tab 05/06/21 06/11/21 Rx amitriptyline 10 mg tablet 10 mg PO HS #30 tab 05/15/21 06/11/21 Rx magnesium oxide 400 mg (241.3 mg 400 mg PO QAM #30 tab 05/15/21 06/11/21 Rx magnesium) tablet riboflavin (vitamin B2) 400 mg 400 mg PO DAILY #30 tab 05/15/21 06/11/21 Rx tablet Past Med/Surg History Medical History (Updated 06/11/21 @ 12:02 by Dontrell Bowen MD) Anemia Anxiety Asthma Uses albuterol daily. Atrial fibrillation FOLLOWED BY DR. GLEN Estrada Depression Diabetes mellitus, type 2 oral med End stage renal disease receiving hemodiaylsis Sunday//Saturdays in [place]. Follows Dr. Gonzales ([place]). Endometriosis stage 4 GERD (gastroesophageal reflux disease) Hyperlipidemia Hypertension no medications currently - experiencing hypotension Hypothyroidism Kidney failure STAGE 4 NO DIALYSIS Migraine Myocardial Infarction 2007 Osteoarthritis Seizure Stroke X 2 2014 Surgical History History of abdominal surgery UMBILICAL MESH REMOVED (NECROTIC) History of adenoidectomy History of appendectomy History of martha hole surgery 2014 AFTER CVA TO "REMOVED FLUID" History of cardiac cath 2008 AT [facility] History of cataract surgery RT/LEFT History of section X 3 History of cholecystectomy History of colonoscopy History of coronary artery bypass graft 2008 3 VESSELS AT [facility] History of esophagogastroduodenoscopy (EGD) History of herniorrhaphy X 3 REPAIRS History of surgery LEFT FOOT/ANKLE FX REPAIR S/P FALL (HARDWARE) History of tonsillectomy History of tooth extraction History of total abdominal hysterectomy and bilateral salpingo-oophorectomy History of total knee replacement LEFT Hx of hand surgery LEFT HAND SURGERY "TOOK BONES OUT" S/P arteriovenous (AV) fistula creation Left arm S/P panniculectomy Family History Brother Family history of diabetes mellitus Coronary heart disease Mother Family history of diabetes mellitus Other No family history of adverse response to anesthesia Social History Smoking Status: Former smoker Tobacco Type: Cigarettes Cigarettes Per Day: 1; Second Hand Exposure: Yes; Hx Alcohol Use: No Hx Substance Use: No Preferred Language: Citizen [place] Communication Ability: Effective Visual Impairment: No Limitations Laser/Electro Optics Technician Required: No Beliefs That Will Affect Care: None marital status: / Current Living Situation: Alone How many Children do You have: 3 Feels Safe at Home: Yes Assistive Devices: Walker Review of Systems Review of Systems: At least 10 Review of systems were reviewed and all negative except as indicated in HPI Physical Exam Physical Exam: General:. NAD, well developed, well nourished, average body habitus HEENT:. Normocephalic and atraumatic, Normal Conjunctiva, EOMI, Sclera is non- icteric Lungs:. No signs of respiratory distress, CTA, no wheezing or crackles Heart:.TTP of the substernal and L lower chest wall, in afib, no murmur Abdominal:.Diffuse TTP (severe near the epigastric area), ND, Soft, normal BS MSK:. No deformities of UE and LE, No leg edema Psych:.appeared anxious AAOx3 Results & Data Results & Data ([facility]) Vital Signs (Past 12 Hours) Vital Signs Temp Pulse Pulse Resp BP BP Pulse Ox 06/11/21 11:15 108 H 24 180/48 H 99 06/11/21 11:04 136 H 203/114 H 06/11/21 10:00 66 18 198/108 H 94 06/11/21 08:30 74 24 225/127 H 96 06/11/21 08:10 58 L 18 216/81 H 96 06/11/21 08:09 96 06/11/21 07:53 36.8 C 62 18 206/79 H 96 Laboratory Results Short CBC 06/11/21 Range/Units 08:13 WBC 6.47 (4.8-10.8) K/uL Hgb 8.3 L (12.0-16.0) g/dL Hct 25.2 L (37-47) % Plt Count 132 (130-400) K/uL BMP 06/11/21 06/11/21 08:13 09:47 Sodium 135 L Potassium 5.0 Chloride 105 Carbon Dioxide 23 BUN 76 H Creatinine 4.85 H* Glucose 186 H Calcium 7.8 L Cardiac Enzymes 06/11/21 Range/Units 08:13 Troponin I 0.03 (0-0.04) ng/ml Liver Function 06/11/21 06/11/21 Range/Units 08:13 09:47 Total Bilirubin 0.6 (0.2-1.0) mg/dl AST 12 L (13-39) U/L ALT 13 (7-52) U/L Alkaline Phosphatase 89 (34-104) U/L Albumin 3.6 (3.4-5.0) gm/dl Diagnostic Findings Abdomen/Pelvis CT 06/11/21 08:09 CT abd pelvis wo con CLINICAL HISTORY: n/v/d, h/o ESRD TECHNIQUE: Helical axial images of the abdomen and pelvis were obtained. Automated dose lowering techniques and/or adjustment according to patient size were utilized for this exam. This exam was performed without intravenous contrast. COMPARISON: Comparison is made to CT abdomen pelvis 04/08/2021 FINDINGS: Lower chest: Bibasilar atelectasis versus scarring is seen. Cardiomegaly is seen. Liver: Unremarkable. No focal lesions are seen. Gallbladder and biliary tree: Patient is status post cholecystectomy. No intra- or extrahepatic biliary ductal dilation. Pancreas: Fatty replacement of the pancreas is seen. Spleen: Unremarkable. Adrenals: Unremarkable. Kidneys and ureters: Nonobstructive nephrolithiasis is seen. The kidneys are mildly atrophic. Bladder: Limited evaluation due to underdistention. Reproductive organs: Patient is status post hysterectomy. Bowel: Unremarkable appearance of the bowel. The appendix is normal. Lymph nodes Retroperitoneal: Unremarkable. Mesenteric: Unremarkable. Pelvic: Unremarkable. Peritoneum: Minimal diffuse fat stranding is seen, increased from prior exam. Vessels: Atherosclerotic calcifications are seen. Abdominal wall: Soft tissue edema is seen. Bones: Degenerative changes in the visualized spine. IMPRESSION: No acute abnormality and in particular no evidence of bowel obstruction. Minimal diffuse peritoneal stranding and mild anasarca is seen which may be related to fluid overload. Mildly atrophic appearance of the bilateral kidneys. ACT 112: Negative or not required by law. Electronically signed by: Nirav Wall M.D. 06/11/2021 9:39 AM Chest X-Ray 06/11/21 08:09 XR chest 1V portable CLINICAL HISTORY: upper ab pain TECHNIQUE: Single frontal radiograph of the chest was obtained. Comparison: Comparison is made to chest one view 05/10/2021 FINDINGS: Stable median sternotomy wires including fractured second wire. Cardiomegaly is noted. Calcified aortic knob is seen. Prominence and cephalization of the vasculature is seen. No evidence of pleural effusion or pneumothorax. IMPRESSION: Mild pulmonary edema. No evidence of pneumoperitoneum. ACT 112: Negative or not required by law. Electronically signed by: Nirav Wall M.D. 06/11/2021 8:50 AM Code Status & VTE Plan VTE Prophylaxis Plan VTE Prophylaxis will be ordered: Yes
[2021-06-11] MEDS ORDERED: HEPARIN SOD (PORCINE) 1000 UNIT/ML IV ONE (12:25)
[2021-06-11] MEDS ORDERED: SODIUM CHLORIDE 0.9% 1000ML 1,000 ML IV PRN (12:25)
[2021-06-11] MEDS: MoRPHine SULFATE 2 MG/ML CARP IV PRN ×2 (12:54→20:13)
[2021-06-11] MEDS ORDERED: levETIRAcetam 500 MG TAB PO PRN (14:26)
[2021-06-11] MEDS: BUTALBITAL/ACETAMIN/CAFFEINE TAB PO PRN ×2 (15:32→21:26)
[2021-06-11] MEDS: hydrALAZINE TAB 50 MG TAB PO SCH ×2 (15:32→20:15)
[2021-06-11] MEDS: SEVELAMER HCL 800 MG TABLET PO SCH ×2 (15:32→16:40)
[2021-06-11] MEDS: INSULIN ASPART PER UNIT SC SCH ×3 (15:47→20:14)
[2021-06-11] MEDS: METOPROLOL TARTRATE 25 MG TAB PO SCH (16:45)
[2021-06-11] MEDS: levETIRAcetam 500 MG TAB PO SCH (17:31)
--- NOTE | 2021-06-11 19:30 | Nephrology Consultation ---
Date of Consultation June 11, 2021 Assessment & Plan (1) ESRD (end stage renal disease) on dialysis: ESRD on HD (non-compliant): -H/O been non- compliant with dialysis Tx, - will dialyse her for 3 hr, UF as tolerated, 2k bath. (2) Hypertension: -Likely 2/2 Missed HD and HTN meds -pt is sched for dialysis today -Please restart on home medications (3) Nausea and vomiting: N/V and diarrhea with abd pain: - COVID neg - CT abd and CXR: no acute finding - Bert Gastroenteritis- as per primary, (4) Atrial fibrillation with RVR: Afib with RVR: -Has liksay not take the BB. -Restart on home dose. (5) Anemia: Chronic Anemia: -today hgb is 8.3, expect improvement after UF -Continue on outpatinet dose of Epo, History of Present Illness Reason for Consultation: ESRD on HD, Missed dialysis Tx. Attending Physician: Dontrell Bowen MD History of Present Illness 71 y/o F with PMH of ESRD on HD TTS,at [facility] via AVF, CABG/CAD, pAF not on AC,HTN, COPD, DM w/ retinopathy, hypothyroid, GERD, RLS, anxiety/depression, seizure disorder, migraines, RLS.Has had polypharmacy and narcotic use in past. Admitted at [facility] (04/29-05/06) for fall d/t possible seizure and w/ HTN urgency that admission; also admitted here in January w/ encephalopathy attributed to substance use/meds and again late march w/ confusion also presented being found on the floor and attributed to hypertensive encephalopathy.Most recent admission in early May after missing dialysis Tx and HTN. She missed 3 dialysis Tx due to Vomiting , nausea and diarrhea which has been on going over the last few days. ER labs were significant for K of 5.0 , Comfortable on exam, no respiratory distress , no pedal edema.Chest xray showed mild pulmonary Edema. Allergies Allergy/AdvReac Type Severity Reaction Status Date / Time bee venom protein (honey bee) Allergy Intermediate MOUTH Verified 05/10/21 23:44 SWELLING prednisone Allergy Intermediate SWELLING Verified 05/10/21 23:44 OG HANDS, ITCHING, RASH tomato Allergy Intermediate Hives Verified 05/10/21 23:44 Penicillins Allergy Mild RASH Verified 05/10/21 23:44 rosuvastatin Allergy Mild SEVERE H/A Verified 05/10/21 23:44 trazodone AdvReac Severe Confusion Verified 05/10/21 23:44 Irmpoxh-QLF-RvT Reductase AdvReac Mild EFFECTED Verified 05/10/21 23:44 Inhibitor LIVER [Ysuvufj-Yno-Iil Reductase STUDIES Inhibitor] Home Medications Medication Instructions Recorded Confirmed Type aspirin 81 mg tablet,delayed 81 mg PO QAM 02/18/18 06/11/21 History release (Aspirin Low Dose) fluticasone propionate 50 1 spray INTRANASAL DAILY PRN 02/18/18 06/11/21 History mcg/actuation nasal spray,suspension (Flonase Allergy Relief) levothyroxine 25 mcg tablet 25 mcg PO QAM 02/18/18 06/11/21 History montelukast 10 mg tablet 10 mg PO HS 02/18/18 06/11/21 History (Singulair) sertraline 100 mg tablet (Zoloft) 150 mg PO QAM 02/18/18 06/11/21 History sevelamer carbonate 800 mg tablet 800 mg PO TIDM 03/26/19 06/11/21 History (Renvela) amlodipine 10 mg tablet (Norvasc) 10 mg PO QAM 03/23/20 06/11/21 History linagliptin 5 mg tablet (Tradjenta) 5 mg PO QAM 03/23/20 06/11/21 History nitroglycerin 0.4 mg sublingual 0.4 mg SUBLINGUAL UD PRN 03/23/20 06/11/21 History tablet (Nitrostat) furosemide 40 mg tablet 40 mg PO QAM 01/07/21 06/11/21 History ammonium lactate 12 % topical cream 1 applic TOPICAL DAILY PRN 01/25/21 06/11/21 History cholecalciferol (vitamin D3) 25 25 mcg PO DAILY 01/25/21 06/11/21 History mcg (1,000 unit) capsule (Vitamin D3) epinephrine 0.3 mg/0.3 mL 0.3 mg IM Q4H PRN 01/25/21 06/11/21 History injection, auto-injector ipratropium 0.5 mg-albuterol 3 mg 3 ml INHALATION Q4H PRN 01/25/21 06/11/21 History (2.5 mg base)/3 mL nebulization soln ondansetron HCl 8 mg tablet 8 mg PO TID PRN 01/25/21 06/11/21 History albuterol sulfate 90 mcg/actuation 2 inh INHALATION Q4H PRN 04/08/21 06/11/21 History aerosol inhaler azelastine 137 mcg (0.1 %) nasal 2 spray INTRANASAL BID 04/08/21 06/11/21 History spray aerosol clopidogrel 75 mg tablet 75 mg PO DAILY 04/08/21 06/11/21 History fluticasone furoate 100 1 inh INHALATION DAILY 04/08/21 06/11/21 History mcg-vilanterol 25 mcg/dose inhalation powder (Breo Ellipta) loperamide 2 mg capsule 2 mg PO DAILY 04/08/21 06/11/21 History melatonin 3 mg tablet 3 mg PO HS #0 04/08/21 06/11/21 History ropinirole 0.25 mg tablet 0.5 mg PO HS 04/08/21 06/11/21 History diphenoxylate-atropine 2.5 1 tab PO DAILY PRN 04/24/21 06/11/21 History mg-0.025 mg tablet (Lomotil) loratadine 10 mg tablet 5 mg PO DAILY 04/24/21 06/11/21 History nruzwkjsco-vqcmlndyzihuf-yejrhlfy 1 tab PO Q4H PRN #30 tab 05/06/21 06/11/21 Rx 50 mg-325 mg-40 mg tablet hydralazine 50 mg tablet 50 mg PO TID #90 tab 05/06/21 06/11/21 Rx levetiracetam 500 mg tablet 500 mg PO DAILY@1800 #45 tab 05/06/21 06/11/21 Rx (Keppra) metoprolol tartrate 25 mg tablet 12.5 mg PO BID #60 tab 05/06/21 06/11/21 Rx amitriptyline 10 mg tablet 10 mg PO HS #30 tab 05/15/21 06/11/21 Rx magnesium oxide 400 mg (241.3 mg 400 mg PO QAM #30 tab 05/15/21 06/11/21 Rx magnesium) tablet riboflavin (vitamin B2) 400 mg 400 mg PO DAILY #30 tab 05/15/21 06/11/21 Rx tablet Patient History Medical History Anemia Anxiety Asthma Uses albuterol daily. Atrial fibrillation FOLLOWED BY DR. CARROLL AV fistula Depression Diabetes mellitus, type 2 oral med End stage renal disease receiving hemodiaylsis Sunday//Saturdays in [place]. Follows Dr. Gonzales ([place], [place]). Endometriosis stage 4 GERD (gastroesophageal reflux disease) Hyperlipidemia Hypertension no medications currently - experiencing hypotension Hypothyroidism Kidney failure STAGE 4 NO DIALYSIS Migraine Myocardial Infarction 2007 Osteoarthritis Seizure Stroke X 2 2014 Surgical History History of abdominal surgery UMBILICAL MESH REMOVED (NECROTIC) History of adenoidectomy History of appendectomy History of martha hole surgery 2013 AFTER CVA TO "REMOVED FLUID" History of cardiac cath 2007 AT [facility] History of cataract surgery RT/LEFT History of section X 3 History of cholecystectomy History of colonoscopy History of coronary artery bypass graft 2007 3 VESSELS AT [place] History of esophagogastroduodenoscopy (EGD) History of herniorrhaphy X 3 REPAIRS History of surgery LEFT FOOT/ANKLE FX REPAIR S/P FALL (HARDWARE) History of tonsillectomy History of tooth extraction History of total abdominal hysterectomy and bilateral salpingo-oophorectomy History of total knee replacement LEFT Hx of hand surgery LEFT HAND SURGERY "TOOK BONES OUT" S/P arteriovenous (AV) fistula creation Left arm S/P panniculectomy Family History Brother Family history of diabetes mellitus Coronary heart disease Mother Family history of diabetes mellitus Other No family history of adverse response to anesthesia Social History Smoking Status: Former smoker Tobacco Type: Cigarettes Cigarettes Per Day: 1; Second Hand Exposure: Yes; Hx Alcohol Use: No Hx Substance Use: No Preferred Language: Kiswahili Communication Ability: Effective Visual Impairment: No Limitations Outside Residential Sales Professional Required: No Beliefs That Will Affect Care: None marital status: / Current Living Situation: Alone How many Children do You have: 3 Feels Safe at Home: Yes Safety Concerns: Feels Safe At This Time Assistive Devices: None Review of Systems Review of Systems: All systems reviewed & are unremarkable except as noted in HPI & below Physical Exam Physical Exam: General:.Alert , oriented, not in distress. HEENT:.Normocephalic and atraumatic, Normal Conjunctiva, EOMI, Sclera is non- icteric Lungs:.No signs of respiratory distress, CTA, no wheezing or crackles Heart:. Normal heart sounds,no murmur Abdominal:.Diffuse tenderness, Soft, normal BS MSK:.No deformities of UE and LE, No leg edema Psych:.AAOx3 Results & Data ([facility]) Vital Signs (Past 12 Hours) Vital Signs Temp Pulse Pulse Pulse Resp BP BP 06/11/21 19:09 36.8 C 65 18 188/72 H 06/11/21 17:41 102 H 06/11/21 16:09 37.0 C 120 H 18 166/87 H 06/11/21 15:20 37 C 102 H 175/108 H 06/11/21 15:00 102 H 163/81 H 06/11/21 14:40 105 H 139/84 06/11/21 14:20 72 148/94 H 06/11/21 14:00 89 152/89 H 06/11/21 13:40 116 H 147/85 H 06/11/21 13:20 99 H 144/79 H 06/11/21 13:00 118 H 151/108 H 06/11/21 12:40 98 H 148/88 H 06/11/21 12:20 92 H 180/107 H 06/11/21 12:06 37.1 C 105 H 06/11/21 11:43 36.8 C 74 18 169/84 H 06/11/21 11:15 108 H 24 180/48 H 06/11/21 11:04 136 H 203/114 H 06/11/21 10:00 66 18 198/108 H 06/11/21 08:30 74 24 225/127 H 06/11/21 08:10 58 L 18 216/81 H 06/11/21 08:09 06/11/21 07:53 36.8 C 62 18 206/79 H Pulse Ox 06/11/21 19:09 98 06/11/21 17:41 06/11/21 16:09 97 06/11/21 15:20 06/11/21 15:00 06/11/21 14:40 06/11/21 14:20 06/11/21 14:00 06/11/21 13:40 06/11/21 13:20 06/11/21 13:00 06/11/21 12:40 06/11/21 12:20 06/11/21 12:06 06/11/21 11:43 97 06/11/21 11:15 99 06/11/21 11:04 06/11/21 10:00 94 06/11/21 08:30 96 06/11/21 08:10 96 06/11/21 08:09 96 06/11/21 07:53 96 Laboratory Results 06/11/21 08:13 06/11/21 09:47 (1) Anemia Anemia type: unspecified type Qualified Code(s): D64.9 - Anemia, unspecified (2) Nausea and vomiting Vomiting type: unspecified Qualified Code(s): R11.2 - Nausea with vomiting, unspecified (3) Hypertension Hypertension type: unspecified Qualified Code(s): I10 - Essential (primary) hypertension
[2021-06-11 19:52] LABS: Appearance Urine Clear (Clear); Bacteria Urine Automated Negative (Negative); Bilirubin Urine Negative (Negative); Blood Urine Negative (Negative); Color Urine Yellow; Epithelial Cell Urine Auto >30 /lpf (0-5); Glucose Urine UA Trace (Negative); Ketones Urine Negative (Negative); Leukocyte Esterase Urine Negative (Negative); Nitrite Urine Negative (Negative); Protein Urine 4+ (Negative); RBC Urine Automated 0-4 /hpf (0-4); Specific Gravity Urine 1.012 (1.000-1.030); Urobilinogen Urine Negative (Negative)
[2021-06-11] MEDS: MELATONIN 3 MG TAB PO SCH (20:15)
[2021-06-11] MEDS: MONTELUKAST SODIUM 10 MG TABLET PO SCH (20:15)
[2021-06-11] MEDS: AMITRIPTYLINE HCL 10 MG TAB PO SCH (20:15)
[2021-06-11] MEDS: HEPARIN SOD 5,000 UNIT/0.5 ML VIAL SQ SCH (20:16)
[2021-06-11] MEDS: rOPINIRole HCL 0.25 MG TABLET PO SCH (20:17)
[2021-06-11] MEDS ORDERED: ALUMINUM/MAGNESIUM/SIMETH (MAALOX MAX) 30 ML UDC PO PRN (20:53)
[2021-06-11] MEDS ORDERED: SUMAtriptan succinate 50 MG TAB PO STA (21:39)
[2021-06-11] MEDS: CALCIUM CARBONATE 500 MG CHEWABLE TAB PO PRN (22:02)
--- NOTE | 2021-06-12 06:27 | Electrocardiogram Report ---
Test Reason : Blood Pressure : / mmHG Vent. Rate : 057 BPM Atrial Rate : 057 BPM P-R Int : 158 ms QRS Dur : 078 ms QT Int : 454 ms P-R-T Axes : 061 053 057 degrees QTc Int : 441 ms Poor data quality, interpretation may be adversely affected Sinus bradycardia Cannot rule out Anterior infarct , age undetermined Abnormal ECG When compared with ECG of 10-MAY-2021 22:58, T wave amplitude has decreased in Anterior leads Confirmed by Bahman Cox ([id number]) on 06/12/2021 6:27:08 AM Referred By: REFERRED SELF Confirmed By:Bahman Cox
--- NOTE | 2021-06-12 06:33 | Electrocardiogram Report ---
Test Reason : Blood Pressure : / mmHG Vent. Rate : 064 BPM Atrial Rate : 064 BPM P-R Int : 160 ms QRS Dur : 074 ms QT Int : 418 ms P-R-T Axes : 055 051 060 degrees QTc Int : 431 ms Normal sinus rhythm Anterior infarct (cited on or before 11-JUN-2021) Abnormal ECG When compared with ECG of 11-JUN-2021 08:20, No significant change was found Confirmed by Bahman Cox ([id number]) on 06/12/2021 6:32:58 AM Referred By: REFERRED SELF Confirmed By:Bahman Cox
[2021-06-12] MEDS: LEVOTHYROXINE SODIUM 25 MCG TABLET PO SCH (06:34)
[2021-06-12 06:39] LABS: Basophils # (auto) 0.01 K/uL (0-0.2); Basophils % (auto) 0.2 %; Eosinophils # (auto) 0.11 K/uL (0-0.5); Eosinophils % (auto) 2.2 %; Hemoglobin 8.1 g/dL (12.0-16.0); Immature Granulocytes # (auto) 0.01 K/uL (0.00-0.02); Immature Granulocytes % (auto) 0.2 %; Lymphocytes # (auto) 0.98 K/uL (1.2-3.4); Lymphocytes % (auto) 19.6 %; Mean Corpuscular Hemoglobin 30.8 pg (25-34); Mean Corpuscular Hgb Conc 32.4 g/dL (32-36); Mean Corpuscular Volume 95.1 fL (80-100); Mean Platelet Volume 9.2 fL (7.4-10.4); Monocytes # (auto) 0.24 K/uL (0.11-0.59); Monocytes % (auto) 4.8 %; Neutrophils # (auto) 3.65 K/uL (1.4-6.5); Platelet Count 129 K/uL (130-400); RDW Coefficient of Variation 16.1 % (11.5-14.5); RDW Standard Deviation 55.4 fL (36.4-46.3); Red Blood Count 2.63 M/uL (4.2-5.4)
--- NOTE | 2021-06-12 06:39 | Electrocardiogram Report ---
Test Reason : Blood Pressure : / mmHG Vent. Rate : 138 BPM Atrial Rate : 144 BPM P-R Int : 000 ms QRS Dur : 078 ms QT Int : 304 ms P-R-T Axes : 000 050 228 degrees QTc Int : 460 ms Poor data quality, interpretation may be adversely affected Atrial fibrillation with rapid ventricular response Cannot rule out Anterior infarct (cited on or before 11-JUN-2021) Abnormal ECG When compared with ECG of 11-JUN-2021 09:33, Atrial fibrillation has replaced Sinus rhythm Vent. rate has increased BY 74 BPM T wave inversion now evident in Inferolateral leads Confirmed by Bahman Cox ([id number]) on 06/12/2021 6:39:06 AM Referred By: REFERRED SELF Confirmed By:Bahman Cox
[2021-06-12 07:21] LABS: Albumin Globulin Ratio 1.2 (0.9-2); Albumin Level 3.2 gm/dl (3.4-5.0); Bilirubin,Total 0.5 mg/dl (0.2-1.0); Calcium 7.4 mg/dl (8.5-10.1); Est GFR (African American) 15.9 ml/min; Est GFR (Non-African American) 13.7 ml/min; Globulin 2.7 gm/dl (2.5-4.0); Total Protein 5.9 gm/dl (6.0-8.3)
[2021-06-12] MEDS: INSULIN ASPART PER UNIT SC SCH ×4 (08:42→21:14)
[2021-06-12] MEDS: SEVELAMER HCL 800 MG TABLET PO SCH ×3 (08:52→16:33)
[2021-06-12] MEDS: FLUTICASONE/VILANTEROL 100/25MCG 14 PUFFS/INHALER INH SCH (08:52)
[2021-06-12] MEDS: amLODIPine BESYLATE 5 MG TAB PO SCH (08:52)
[2021-06-12] MEDS: ASPIRIN 81 MG ECTAB PO SCH (08:52)
[2021-06-12] MEDS: CHOLECALCIFEROL 1,000 UNITS 25 MCG TAB PO SCH (08:52)
[2021-06-12] MEDS: CLOPIDOGREL BISULFATE 75 MG TAB PO SCH (08:52)
[2021-06-12] MEDS: hydrALAZINE HCL 25 MG TAB PO SCH ×2 (08:52→16:32)
[2021-06-12] MEDS: METOPROLOL TARTRATE 25 MG TAB PO SCH ×2 (08:53→21:12)
[2021-06-12] MEDS: FUROSEMIDE 40 MG TAB PO SCH (08:53)
[2021-06-12] MEDS: LOPERAMIDE HCL 2 MG CAP PO SCH (08:53)
[2021-06-12] MEDS: ISOSORBIDE MONO EXTENDED REL 30 MG TABCR PO SCH (08:53)
[2021-06-12] MEDS: HEPARIN SOD 5,000 UNIT/0.5 ML VIAL SQ SCH ×2 (08:53→21:17)
[2021-06-12] MEDS: MAGNESIUM OXIDE 400 MG TAB PO SCH (08:53)
[2021-06-12] MEDS: LORATADINE 10 MG TAB PO SCH (08:53)
[2021-06-12] MEDS: hydrALAZINE TAB 50 MG TAB PO SCH ×3 (08:53→21:18)
[2021-06-12] MEDS: PANTOprazole 40 MG TAB PO SCH (08:54)
[2021-06-12] MEDS: SERTRALINE HCL 50 MG TABLET PO SCH (08:54)
[2021-06-12] MEDS: BUTALBITAL/ACETAMIN/CAFFEINE TAB PO PRN ×2 (08:59→21:05)
[2021-06-12] MEDS ORDERED: NON-FORMULARY MEDICATION (Riboflavin (Vitamin B2) 400 mg tablet) PO SCH (09:00)
--- NOTE | 2021-06-12 11:24 | Hospitalist Progress Note ---
Date of Service June 12, 2021 Assessment & Plan (1) Hypertensive emergency: (2) Atrial fibrillation with RVR: (3) Nausea and vomiting: (4) ESRD (end stage renal disease) on dialysis: (5) Anemia: (6) DM2 (diabetes mellitus, type 2): (7) Anxiety: (8) Depression: (9) History of CVA (cerebrovascular accident): (10) COPD (chronic obstructive pulmonary disease): (11) GERD (gastroesophageal reflux disease): (12) Seizure: Plan: Pt is a 71 y/o F with hx of DMII, ESRD on HD (non-compliant), CAD s/p CABG, COPD, Afib (not on AC did not tolerate coumadin), HTN, Hypothyroidism, HLD, RLS, Chronic Anemia (bl: 10), Seizure, Depression/Anxiety, GERD, Insomnia, RLS, Migraine admitted for 1 week of N/V, diarrhea with abd pain and missed dialysis sessions. HTN emergency: -Likely 2/2 Missed HD and HTN meds -pt had HD Sat -Added Imdur and Hydralazine -continue home HTN meds -PCU tele -pt recently had multiple admissions thus will consult case management to help with social need assessment -PT/OT eval Afib with RVR: -developed afib with RVR after receiving hydralazine -initial trop is neg -pt have not taken metoprolol for 1 week -HR and BP responded well to Lopressor 10mg IV -will continue home metoprolol dose N/V and diarrhea with abd pain: -COVID neg - CT abd and CXR: no acute finding -likely 2/2 Viral gastroenteritis vs uremia (BUN of 76) ---- normal mental status at this time -will do Zofran IV prn - start the pt on protonix daily -will do regular diet - no IV fluids at this time ESRD on HD (non-compliant): -missed 3 sessions -L Forearm access -sched to receive dialysis today -electrolytes are stable -nephro consulted Chronic Anemia: -baseline hgb is 10 -today hgb is 8.3: likely 2/2 dilution from volume overload ---- however will get FOBT and trend hgb DMII: -hold tradjenta -ISS CAD s/p CABG and hx of CVA: -currently on DAPT COPD/Seizure/migraine: -continue home meds Depression/Anxiety: -c/w home meds SOB and CARL-Duoneb and Fiorcet Diet: Renal and DMII diet DVT PPx:Heparin Code Status: FULL CODE Emergency Contact: Tricia Sims [phone] ROS-+Headache, No Visual Changes, No Nausea, No Vomiting, No Fever, No Chills, No Neck Pain or Stiffness, No Chest Pain, No Palpitations, +SOB, No GRADY, No Cough, No Sputum, No Wheezing, No Abdominal Pain, No Diarrhea, No Hematemesis, No Hemoptysis, No Unexpected Weight Loss, No Flank pain, No Melena, No Hematochezia, No Frequency, No Urgency, No Burning, No Hematuria, No Rashes, No Diaphoresis. Appetite is Normal Physical Exam Gen-AAO x 3, NAD, Afebrile Head-NCAT, EOMI, PERRLA, Anicteric Sclera, No Posterior Pharyngeal Erythema Neck-Supple, No JVD, No Thyromegaly, No Masses, No LAD, No Bruits Lungs-Clear to Auscultation Bilaterally, No Rales, No Rhonchi, No Wheezing, No Crepitus Chest-No S4, +S1, +S2, No S3, No Murmurs, No Rubs, No Gallops, No Ectopy Abdomen-Soft, Bowel Sounds Present, Non Tender, Non Distended, No Hepatomegaly, No Splenomegaly, No Palpable Masses, No Rebound, No Rigidity, No Guarding Musculoskeletal-Full Range of Motion Bilaterally, No CVAT Extremities-No Cyanosis, No Clubbing, No Edema Nuero-Cranial Nerves II-XII grossly intact, Motor WNL, DTRs WNL, Strength WNL, Non Focal Psych-Normal Mood Admission and Anticipated Discharge Date Admission Date: June 11, 2021 Subjective Patient seen, multiple vague complaints, SOB, Headache, Sore Back. Results & Data Results & Data ([facility]) Vital Signs (Past 12 Hours) Vital Signs Temp Pulse Pulse Resp BP Pulse Ox 06/12/21 08:04 36.8 C 79 17 188/81 H 96 06/12/21 04:26 36.5 C 56 L 17 180/78 H 99 06/11/21 23:40 166/70 H (1) Nausea and vomiting Vomiting type: unspecified Qualified Code(s): R11.2 - Nausea with vomiting, unspecified
[2021-06-12] MEDS ORDERED: ALBUT/IPRATROP 3MG/0.5MG NEB 3 ML VIAL NEB PRN (11:26)
--- NOTE | 2021-06-12 11:51 | Nephrology Progress Note ---
Date of Service June 12, 2021 Assessment & Plan (1) ESRD (end stage renal disease) on dialysis: Plan: ESRD on HD (non-compliant): -H/O been non- compliant with dialysis Tx, -Dialyzed yesterday with 900 mils of UF. -Comfortable today. -We will dialyze her again tomorrow, if still in-house. (2) Hypertension: Plan: -Likely 2/2 Missed HD and HTN meds -pt is sched for dialysis today -On home medications -Agree with adding Imdur. (3) Nausea and vomiting: Plan: N/V and diarrhea with abd pain: - COVID neg - CT abd and CXR: no acute finding - Likley Gastroenteritis- as per primary, -Resolved (4) Atrial fibrillation with RVR: (5) Anemia: Plan: Chronic Anemia: -Continue on outpatinet dose of Epo, Admission and Anticipated Discharge Date Admission Date: June 11, 2021 Subjective Looks anxious and wants to go home. Nausea and diarrhea has stopped. Afraid of eating, she thinks that this would trigger her nausea Review of Systems Review of Systems: All systems reviewed & are unremarkable except as noted in HPI & below Physical Exam Physical Exam: General:.Alert , oriented, not in distress. HEENT:.Normocephalic and atraumatic, Normal Conjunctiva, EOMI, Sclera is non- icteric Lungs:.No signs of respiratory distress, CTA, no wheezing or crackles Heart:. Normal heart sounds,no murmur Abdominal:.Diffuse tenderness, Soft, normal BS MSK:.No deformities of UE and LE, No leg edema Psych:.AAOx3 Results & Data ([facility]) Vital Signs (Past 12 Hours) Vital Signs Temp Pulse Pulse Resp BP Pulse Ox 06/12/21 08:04 36.8 C 79 17 188/81 H 96 06/12/21 04:26 36.5 C 56 L 17 180/78 H 99 Laboratory Results 06/12/21 06:00 06/12/21 06:00 (1) Hypertension Hypertension type: unspecified Qualified Code(s): I10 - Essential (primary) hypertension (2) Nausea and vomiting Vomiting type: unspecified Qualified Code(s): R11.2 - Nausea with vomiting, unspecified (3) Anemia Anemia type: unspecified type Qualified Code(s): D64.9 - Anemia, unspecified
[2021-06-12] MEDS: levETIRAcetam 500 MG TAB PO SCH (16:33)
[2021-06-12] MEDS: rOPINIRole HCL 0.25 MG TABLET PO SCH (21:12)
[2021-06-12] MEDS: MONTELUKAST SODIUM 10 MG TABLET PO SCH (21:12)
[2021-06-12] MEDS: MELATONIN 3 MG TAB PO SCH (21:17)
[2021-06-12] MEDS: AMITRIPTYLINE HCL 10 MG TAB PO SCH (21:17)
[2021-06-13] MEDS: hydrALAZINE HCL 25 MG TAB PO SCH ×3 (02:13→16:54)
[2021-06-13] MEDS: LEVOTHYROXINE SODIUM 25 MCG TABLET PO SCH (05:38)
[2021-06-13 06:57] LABS: Hematocrit (blood only) 26.4 % (37-47); Hemoglobin 8.3 g/dL (12.0-16.0); Mean Corpuscular Hemoglobin 30.2 pg (25-34); Mean Corpuscular Hgb Conc 31.4 g/dL (32-36); Platelet Count 122 K/uL (130-400); RDW Coefficient of Variation 16.3 % (11.5-14.5); RDW Standard Deviation 56.3 fL (36.4-46.3); Red Blood Count 2.75 M/uL (4.2-5.4); White Blood Count 5.21 K/uL (4.8-10.8)
[2021-06-13 07:07] LABS: Albumin Globulin Ratio 1.2 (0.9-2); Albumin Level 3.3 gm/dl (3.4-5.0); BUN Creatinine Ratio 11.6 (10-20); Bilirubin,Total 0.4 mg/dl (0.2-1.0); Calcium 7.6 mg/dl (8.5-10.1); Creatinine Clr Calc Pharmacy 11.1 ml/min; Est GFR (African American) 11.1 ml/min; Est GFR (Non-African American) 9.5 ml/min; Globulin 2.7 gm/dl (2.5-4.0); Potassium 4.4 mmol/L (3.5-5.1)
[2021-06-13] MEDS: BUTALBITAL/ACETAMIN/CAFFEINE TAB PO PRN ×3 (08:33→19:58)
[2021-06-13] MEDS: LOPERAMIDE HCL 2 MG CAP PO SCH (08:34)
[2021-06-13] MEDS: hydrALAZINE TAB 50 MG TAB PO SCH ×3 (08:34→19:56)
[2021-06-13] MEDS: amLODIPine BESYLATE 5 MG TAB PO SCH (08:34)
[2021-06-13] MEDS: MAGNESIUM OXIDE 400 MG TAB PO SCH (08:34)
[2021-06-13] MEDS: SERTRALINE HCL 50 MG TABLET PO SCH (08:34)
[2021-06-13] MEDS: PANTOprazole 40 MG TAB PO SCH (08:35)
[2021-06-13] MEDS: LORATADINE 10 MG TAB PO SCH (08:35)
[2021-06-13] MEDS: CLOPIDOGREL BISULFATE 75 MG TAB PO SCH (08:36)
[2021-06-13] MEDS: CHOLECALCIFEROL 1,000 UNITS 25 MCG TAB PO SCH (08:36)
[2021-06-13] MEDS: SEVELAMER HCL 800 MG TABLET PO SCH ×3 (08:36→17:43)
[2021-06-13] MEDS: FUROSEMIDE 40 MG TAB PO SCH (08:36)
[2021-06-13] MEDS: ASPIRIN 81 MG ECTAB PO SCH (08:36)
[2021-06-13] MEDS: METOPROLOL TARTRATE 25 MG TAB PO SCH ×2 (08:36→19:53)
[2021-06-13] MEDS: ISOSORBIDE MONO EXTENDED REL 30 MG TABCR PO SCH (08:36)
[2021-06-13] MEDS: FLUTICASONE/VILANTEROL 100/25MCG 14 PUFFS/INHALER INH SCH (08:39)
[2021-06-13] MEDS: HEPARIN SOD 5,000 UNIT/0.5 ML VIAL SQ SCH ×2 (08:39→19:59)
[2021-06-13] MEDS: INSULIN ASPART PER UNIT SC SCH ×4 (08:46→21:04)
--- NOTE | 2021-06-13 09:25 | Discharge Summary ---
Date of Service June 13, 2021 Admission HPI Per Admitting Provider Pt is a 71 y/o F with hx of DMII, ESRD on HD (non-compliant), CAD s/p CABG, COPD, Afib (not on AC did not tolerate coumadin), HTN, Hypothyroidism, HLD, RLS, Chronic Anemia (bl: 10), Seizure, Depression/Anxiety, GERD, Insomnia, RLS, Migraine came to the ER due to 1 week hx of N/V and diarrhea. Pt was seen in the clinic yesterday and recommended to go to the ER for severe HTN and missed HD. Per pt she came to the ER yesterday but left w/o seeing. She has been having N/V and Diarrhea for 1 week. Vomiting is NBNB and last episode was 2 days ago. Diarrhea is NB and last episode also 2 days ago. Pt continues to have nausea associated with diffuse abd pain, bloating, L lower chest wall pain, cough and SOB. Due to nausea, she has not been eating much and have not taken any medication for 1 week. She also missed 1 week of HD sessions (#3). Per pt she lives alone. Walks w/o any help, receive help from son who lives close by. Admission Exam Per Admitting Provider Physical Exam Physical Exam: General:.NAD, well developed, well nourished, average body mendoza bitus HEENT:.Normocephalic and atraumatic, Normal Conjunctiva, EOMI, Sclera is non- icteric Lungs:.No signs of respiratory distress, CTA, no wheezing or crackles Heart:.TTP of the substernal and L lower chest wall, in afib,no murmur Abdominal:.Diffuse TTP (severe near the epigastric area),ND, Soft, normal BS MSK:.No deformities of UE and LE, No leg edema Psych:.appeared anxiousAAOx3 Principal Diagnosis Hypertensive Emergency due to missed Dialysis Afib with RVR Nausea & Vomitting, likely due to viral gastroenteritis ESRD on HD Discharge Exam Gen: WD/WN, F, NAD, A&O x3 HEENT: Normocephalic, atraumatic, conjunctivae moist, sclerae anicteric, mucous membranes moist. Lung: Clear to Auscultation bilaterally, no wheezes/rales/rhonchi Heart: Regular rate, regular rhythm, no murmurs, rubs, or gallops Abdomen: Soft, NT, ND +BS x 4 Extremities: No edema Skin: Warm, no rash, negative turgor. Discharge Data Allergies Allergy/AdvReac Type Severity Reaction Status Date / Time bee venom protein (honey bee) Allergy Intermediate MOUTH Verified 05/10/21 23:44 SWELLING prednisone Allergy Intermediate SWELLING Verified 05/10/21 23:44 OG HANDS, ITCHING, RASH tomato Allergy Intermediate Hives Verified 05/10/21 23:44 Penicillins Allergy Mild RASH Verified 05/10/21 23:44 rosuvastatin Allergy Mild SEVERE H/A Verified 05/10/21 23:44 trazodone AdvReac Severe Confusion Verified 05/10/21 23:44 Orkqlrq-LZT-OrO Reductase AdvReac Mild EFFECTED Verified 05/10/21 23:44 Inhibitor LIVER [Gyyinpy-Jpm-Cqe Reductase STUDIES Inhibitor] Consultations 06/11/21 10:19 ED Decision to Admit Stat 06/11/21 11:43 Consult Nephrology Routine (1) ESRD (end stage renal disease) on dialysis: Plan: ESRD on HD (non-compliant): -H/O been non- compliant with dialysis Tx, -Dialyzed yesterday with 900 mils of UF. -Comfortable today. -We will dialyze her again tomorrow, if still in-house. (2) Hypertension: Plan: -Likely 2/2 Missed HD and HTN meds -pt is sched for dialysis today -On home medications -Agree with adding Imdur. (3) Nausea and vomiting: Plan: N/V and diarrhea with abd pain: - COVID neg - CT abd and CXR: no acute finding - Likley Gastroenteritis- as per primary, -Resolved (4) Atrial fibrillation with RVR: (5) Anemia: Plan: Chronic Anemia: -Continue on outpatinet dose of Epo, Ordered Studies Abdomen/Pelvis CT 06/11/21 08:09 CT abd pelvis wo con CLINICAL HISTORY: n/v/d, h/o ESRD TECHNIQUE: Helical axial images of the abdomen and pelvis were obtained. Automated dose lowering techniques and/or adjustment according to patient size were utilized for this exam. This exam was performed without intravenous contrast. COMPARISON: Comparison is made to CT abdomen pelvis 04/08/2021 FINDINGS: Lower chest: Bibasilar atelectasis versus scarring is seen. Cardiomegaly is seen. Liver: Unremarkable. No focal lesions are seen. Gallbladder and biliary tree: Patient is status post cholecystectomy. No intra- or extrahepatic biliary ductal dilation. Pancreas: Fatty replacement of the pancreas is seen. Spleen: Unremarkable. Adrenals: Unremarkable. Kidneys and ureters: Nonobstructive nephrolithiasis is seen. The kidneys are mildly atrophic. Bladder: Limited evaluation due to underdistention. Reproductive organs: Patient is status post hysterectomy. Bowel: Unremarkable appearance of the bowel. The appendix is normal. Lymph nodes Retroperitoneal: Unremarkable. Mesenteric: Unremarkable. Pelvic: Unremarkable. Peritoneum: Minimal diffuse fat stranding is seen, increased from prior exam. Vessels: Atherosclerotic calcifications are seen. Abdominal wall: Soft tissue edema is seen. Bones: Degenerative changes in the visualized spine. IMPRESSION: No acute abnormality and in particular no evidence of bowel obstruction. Minimal diffuse peritoneal stranding and mild anasarca is seen which may be related to fluid overload. Mildly atrophic appearance of the bilateral kidneys. ACT 112: Negative or not required by law. Electronically signed by: Nirav Wall M.D. 06/11/2021 9:39 AM Chest X-Ray 06/11/21 08:09 XR chest 1V portable CLINICAL HISTORY: upper ab pain TECHNIQUE: Single frontal radiograph of the chest was obtained. Comparison: Comparison is made to chest one view 05/10/2021 FINDINGS: Stable median sternotomy wires including fractured second wire. Cardiomegaly is noted. Calcified aortic knob is seen. Prominence and cephalization of the vasculature is seen. No evidence of pleural effusion or pneumothorax. IMPRESSION: Mild pulmonary edema. No evidence of pneumoperitoneum. ACT 112: Negative or not required by law. Electronically signed by: Nirav Wall M.D. 06/11/2021 8:50 AM Diabetes Follow up 04/09/21 A1C 6.5 Hospital Course (1) Hypertensive emergency: (2) Atrial fibrillation with RVR: (3) Nausea and vomiting: (4) ESRD (end stage renal disease) on dialysis: (5) Anemia: (6) DM2 (diabetes mellitus, type 2): (7) Anxiety: (8) Depression: (9) History of CVA (cerebrovascular accident): (10) COPD (chronic obstructive pulmonary disease): (11) GERD (gastroesophageal reflux disease): (12) Seizure: Pt is a 71 y/o F with hx of DMII, ESRD on HD (non-compliant), CAD s/p CABG, COPD, Afib (not on AC did not tolerate coumadin), HTN, Hypothyroidism, HLD, RLS, Chronic Anemia (bl: 10), Seizure, Depression/Anxiety, GERD, Insomnia, RLS, Migraine admitted for 1 week of N/V, diarrhea with abd pain and missed dialysis sessions. CT a/p and CXR revealed no acute findings. GI sx felt likely 2/2 to viral gastroenteritis. Pt has hypertensive emergency likely in setting of missed HD x 1 week. She was Dialyzed on Sunday06/11/21 with 900 mils of UF. She was started on imdur 30mg daily for better blood pressure control. Her hospitalization was complicated with afib with RVR likely 2/2 to illness, missed HD and missed metoprolol dose. This resolved with IV lopressor and she returned to normal sinus rhythm. She is not on oral anticoagulation due to poorly tolerated in past. Her N/V/D resolved by day of discharge and she was feeling back to baseline. She offered no acute concerns of day of discharge except for allergy sx related to her asthma including headache, congestion and mild sob. This resolved with allergy medications and her routine inhalers. She continues to make urine despite HD. She will continue HD at discharge on . Plan is for her to switch to [facility] and this will be arranged as outpt. She will continue all other home medications. Total Time Total Time Spent Total Time Spent (In Minutes): 45 minutes Total Time Includes: Examination of the Patient, Discharge Planning, Medication Reconciliation, Communication With Other Providers and Other Discharge Plan Discharge Items Patient Disposition: Home - Self-Care Reason For Visit: HTN EMERGENCY Discharge Diagnosis: Hypertensive Emergency due to missed Dialysis Afib with RVR Nausea & Vomitting, likely due to viral gastroenteritis ESRD on HD Condition on Discharge: Good Activity: Resume your previous activity Bathing: No limitations Non-emergency contact: Primary Care Provider and Location Director Call non-emergency contact if: you have any medication questions, your symptoms worsen, your pain is unusual for you, your pain is concerning for you, you have a fever and your temperature is above 101 Follow-up/Referrals: PCP,NO [Primary Care Provider] - Diet: Carb Consistent or DM2 and Dialysis Renal Addtl Attending Provider Instructions: MEDICATION CHANGES: New Medications: Isosorbide Mononitrate 30mg by mouth daily for blood pressure Pantoprazole 40mg daily for GERD Please continue all other medications as prescribed SUMMARY OF TEST RESULTS: You were admitted to hospital secondary to nausea, vomiting, diarrhea, abdominal pain and missed dialysis sessions for 1 week. Your blood pressure was severely elevated likely secondary to missed dialysis. You underwent hemodialysis on 06/11/2021. Isosorbide mononitrate was added to your blood pressure regimen for better control. You developed atrial fibrillation with rapid rate during hospitalization. This resolved after taking your home metoprolol and additional IV medications. Your nausea and vomiting and diarrhea resolved. This was likely secondary to a viral gastroenteritis. You were treated conservatively. PENDING TEST RESULTS: None RECOMMENDATIONS FOR FOLLOW-UP: Please continue hemodialysis as scheduled on Sunday, and Sunday. Continue all home medications. Do not miss any doses. Monitor your blood pressure twice daily, keep a log of your blood pressure and take with you to your next follow up with PCP. Continue services provided by [facility] at home. OTHER INSTRUCTIONS: Seek medical attention if you have: * temperature above 101 * chest pain or trouble breathing * abdominal pain, nausea, vomiting * diarrhea, dark stools or bloody stools * any unanswered questions or concerns Call 911 if symptoms are severe. Please take good care of yourself. It has been a pleasure taking care of you. Please take care of yourself. If you have any questions regarding your recent hospitalization please contact [facility] and request [employer] @ [phone]. Shirlene Salazar PA-C Pending Studies at Discharge: No Stand-Alone Forms: My [facility], Smoking Cessation Medications and DC Order Prescriptions: New isosorbide mononitrate 30 mg Tablet Extended Release 24 Hr 30 mg PO QAM Qty: 30 RF: 0 pantoprazole 40 mg Tablet,Delayed Release (Dr/Ec) 40 mg PO DAILY Qty: 30 RF: 0 Continued amlodipine [Norvasc] 10 mg tablet 10 mg PO QAM RF: 0 Tradjenta 5 mg Tablet 5 mg PO QAM RF: 0 nitroglycerin [Nitrostat] 0.4 mg Tablet, Sublingual 0.4 mg sublingual UD PRN (Reason: Angina) RF: 0 sertraline [Zoloft] 100 mg Tablet 150 mg PO QAM RF: 0 aspirin [Aspirin Low Dose] 81 mg Tablet,Delayed Release (Dr/Ec) 81 mg PO QAM RF: 0 levothyroxine 25 mcg Tablet 25 mcg PO QAM RF: 0 montelukast [Singulair] 10 mg Tablet 10 mg PO HS RF: 0 fluticasone propionate [Flonase Allergy Relief] 50 mcg/actuation [place],Suspension 1 spray INTRANASAL DAILY PRN (Reason: Nasal Congestion) RF: 0 sevelamer carbonate [Renvela] 800 mg Tablet 800 mg PO TIDM RF: 0 furosemide 40 mg tablet 40 mg PO QAM RF: 0 ipratropium-albuterol 0.5 mg-3 mg(2.5 mg base)/3 mL Solution For Nebulization 3 ml INHALATION Q4H PRN (Reason: Shortness Of Breath) RF: 0 ondansetron HCl 8 mg tablet 8 mg PO TID PRN (Reason: Nausea) RF: 0 ammonium lactate 12 % Cream 1 applic TOPICAL DAILY PRN (Reason: Skin Irritation) RF: 0 epinephrine 0.3 mg/0.3 mL Auto-Injector 0.3 mg IM Q4H PRN (Reason: Anaphylaxis) RF: 0 cholecalciferol (vitamin D3) [Vitamin D3] 25 mcg (1,000 unit) Capsule 25 mcg PO DAILY RF: 0 loperamide 2 mg capsule 2 mg PO DAILY RF: 0 ropinirole 0.25 mg tablet 0.5 mg PO HS RF: 0 albuterol sulfate 90 mcg/actuation HFA aerosol inhaler 2 inh INHALATION Q4H PRN (Reason: Shortness Of Breath) RF: 0 clopidogrel 75 mg tablet 75 mg PO DAILY RF: 0 melatonin 3 mg Tablet 3 mg PO HS Qty: 0 RF: 0 azelastine 137 mcg (0.1 %) aerosol,spray 2 spray INTRANASAL BID RF: 0 Breo Ellipta 100-25 mcg/dose blister with device 1 inh INHALATION DAILY RF: 0 diphenoxylate-atropine [Lomotil] 2.5-0.025 mg Tablet 1 tab PO DAILY PRN (Reason: Diarrhea) RF: 0 loratadine 10 mg Tablet 5 mg PO DAILY RF: 0 levetiracetam [Keppra] 500 mg Tablet 500 mg PO DAILY@1800 Qty: 45 RF: 0 kqqlzafhcw-inldudouacmjw-wzab 50-325-40 mg Tablet 1 tab PO Q4H PRN (Reason: migraine headache) Qty: 30 RF: 0 metoprolol tartrate 25 mg Tablet 12.5 mg PO BID Qty: 60 RF: 0 amitriptyline 10 mg Tablet 10 mg PO HS Qty: 30 RF: 0 magnesium oxide 400 mg (241.3 mg magnesium) Tablet 400 mg PO QAM Qty: 30 RF: 0 riboflavin (vitamin B2) 400 mg tablet 400 mg PO DAILY Qty: 30 RF: 0 hydralazine 50 mg Tablet 50 mg PO TID Qty: 90 RF: 0 Discontinued hydralazine 50 mg Tablet 50 mg PO TID Qty: 90 RF: 0 Admission Data Admit Date/Time: 06/11/21 10:23 Attending Provider: Leo Hou Admit Provider: Dontrell Bowen Primary Care Provider: PCP,NO Other Providers: Dontrell Bowen ; Seda Hadley ; Shirlene Salazar
[2021-06-13] MEDS: AZELASTINE HCL 0.1% NASAL 200 SPRAYS/27,400 MCG BTL SCH ×2 (10:56→19:59)
[2021-06-13] MEDS ORDERED: LEVALBUTEROL HCL 0.63 MG/3 ML NEB NEB PRN (11:27)
--- NOTE | 2021-06-13 12:44 | Hospitalist Progress Note ---
Date of Service June 13, 2021 Assessment & Plan (1) Hypertensive emergency: (2) Atrial fibrillation with RVR: (3) Nausea and vomiting: (4) ESRD (end stage renal disease) on dialysis: (5) Anemia: (6) DM2 (diabetes mellitus, type 2): (7) Anxiety: (8) Depression: (9) History of CVA (cerebrovascular accident): (10) COPD (chronic obstructive pulmonary disease): (11) GERD (gastroesophageal reflux disease): (12) Seizure: Plan: Pt is a 71 y/o F with hx of DMII, ESRD on HD (non-compliant), CAD s/p CABG, COPD, Afib (not on AC did not tolerate coumadin), HTN, Hypothyroidism, HLD, RLS, Chronic Anemia (bl: 10), Seizure, Depression/Anxiety, GERD, Insomnia, RLS, Migraine admitted for 1 week of N/V, diarrhea with abd pain and missed dialysis sessions. CT a/p and CXR revealed no acute findings. GI sx felt likely 2/2 to viral gastroenteritis. Pt has hypertensive emergency likely in setting of missed HD x 1 week. She was Dialyzed on Sunday06/11/21 with 900 mils of UF. She was started on imdur 30mg daily for better blood pressure control. Her hos pitalization was complicated with afib with RVR likely 2/2 to illness, missed HD and missed metoprolol dose. This resolved with IV lopressor and she returned to normal sinus rhythm. She is not on oral anticoagulation due to poorly tolerated in past. Her N/V/D resolved by day of discharge and she was feeling back to baseline. She offered no acute concerns of day of discharge except for allergy sx related to her asthma including headache, congestion and mild sob. This resolved with allergy medications and her routine inhalers. She continues to make urine despite HD. She will continue HD at discharge on . Plan is for her to switch to [facility] HD center and this will be arranged as outpt. She will continue all other home medications. Plan was for pt to be d/c today; however after eating breakfast she had a loose BM and crampy abdominal pain. She also made statement that her son wouldn't be able to get her. She is wishing to not be d/c today. Will continue to monitor today. She will have HD tomorrow. Re evaluate in a.m. to d/c. Blood pressure after a.m. meds 158/54 DVT ppx: SQ Heparin Dispo: re eval in a.m. to d/c FULL CODE Admission and Anticipated Discharge Date Admission Date: June 11, 2021 Subjective Pt was seen and examined in room 383-2. Follow up N/V/D, gastroenteritis, and ESRD on HD. She feels okay this morning. She is concerned about her allergies, congestion and SOB with asthma. She is requesting her inhalers. Her N/V/D and abd pain has resolved. However, after she ate breakfast she had cramping and one loose BM. Initially plan was to be d/c today; however pt requesting to remain hospitalized. She denies f/c/s/, chest pain, sob at rest, n/v, melena, hematochezia. Review of Systems Review of Systems: All systems reviewed & are unremarkable except as noted in HPI & below Physical Exam Physical Exam: Gen: WD/WN, F, NAD, A&O x3 HEENT: Normocephalic, atraumatic, conjunctivae moist, sclerae anicteric, mucous membranes moist. Lung: Clear to Auscultation bilaterally, no wheezes/rales/rhonchi Heart: Regular rate, regular rhythm, no murmurs, rubs, or gallops Abdomen: Soft, NT, ND +BS x 4 Extremities: No edema Skin: Warm, no rash, negative turgor. Results & Data Results & Data ([facility]) Vital Signs (Past 12 Hours) Vital Signs Temp Pulse Resp BP Pulse Ox 06/13/21 12:26 94 06/13/21 10:49 70 158/54 H 06/13/21 07:25 36.6 C 65 16 182/78 H 95 Laboratory Results Short CBC 06/13/21 Range/Units 06:03 WBC 5.21 (4.8-10.8) K/uL Hgb 8.3 L (12.0-16.0) g/dL Hct 26.4 L (37-47) % Plt Count 122 L (130-400) K/uL BMP 06/13/21 06:03 Sodium 137 Potassium 4.4 Chloride 104 Carbon Dioxide 26 BUN 50 H Creatinine 4.31 H D Glucose 186 H Calcium 7.6 L Liver Function 06/13/21 Range/Units 06:03 Total Bilirubin 0.4 (0.2-1.0) mg/dl AST 10 L (13-39) U/L ALT 9 (7-52) U/L Alkaline Phosphatase 87 (34-104) U/L Albumin 3.3 L (3.4-5.0) gm/dl Medications Administered Current Inpatient Medications Acetaminophen/Butalbital/Caffeine (Butalbital/Acetamin/Caffeine Tab) 1 tab PO Q4H PRN PRN Reason: Headache Stop: 07/12/21 11:23 Last Admin: 06/13/21 08:33 Dose: 1 tab Documented by: Amitriptyline HCl (Amitriptyline Hcl 10 Mg Tab) 10 mg PO HS [facility] Stop: 07/11/21 20:59 Last Admin: 06/12/21 21:17 Dose: 10 mg Documented by: Amlodipine Besylate (Amlodipine Besylate 5 Mg Tab) 10 mg PO QAM [facility] Stop: 07/12/21 08:59 Last Admin: 06/13/21 08:34 Dose: 10 mg Documented by: Aspirin (Aspirin 81 Mg Ectab) 81 mg PO QAM [facility] Stop: 07/12/21 08:59 Last Admin: 06/13/21 08:36 Dose: 81 mg Documented by: Azelastine HCl (Azelastine Hcl 0.1% Nasal 200 Sprays/27,400 Mcg Btl) 2 sprays NA BID [facility] Stop: 07/13/21 09:14 Last Admin: 06/13/21 10:56 Dose: 2 sprays Documented by: Calcium Carbonate (Calcium Carbonate 500 Mg Chewable Tab) 500 mg PO BID PRN PRN Reason: Heartburn Stop: 07/11/21 21:38 Last Admin: 06/11/21 22:02 Dose: 500 mg Documented by: Clopidogrel Bisulfate (Clopidogrel Bisulfate 75 Mg Tab) 75 mg PO DAILY [facility] Stop: 07/12/21 08:59 Last Admin: 06/13/21 08:36 Dose: 75 mg Documented by: Dextrose (Dextrose 50% 50 Ml Syringe) 25 - 50 ml IV UD PRN; Protocol PRN Reason: Hypoglycemia Protocol Stop: 07/11/21 10:35 Diphenoxylate HCl/Atropine (Diphenoxylate/Atropine 2.5/0.025mg Tab) 1 tab PO DAILY PRN PRN Reason: Diarrhea Stop: 07/11/21 11:42 Fluticasone/Vilanterol (Fluticasone/Vilanterol 100/25mcg 14 Puffs/Inhaler) 1 puffs INH DAILY [facility] Stop: 07/12/21 08:59 Last Admin: 06/13/21 08:39 Dose: 1 puffs Documented by: Furosemide (Furosemide 40 Mg Tab) 40 mg PO QAM [facility] Stop: 07/12/21 08:59 Last Admin: 06/13/21 08:36 Dose: 40 mg Documented by: Glucagon (Glucagon For Inj 1 Mg Vial) 1 mg SQ UD PRN; Protocol PRN Reason: Hypoglycemia Protocol Stop: 07/11/21 10:35 Glucose (Glucose 10 Tabs/Tube) 4 - 8 tabs PO UD PRN; Protocol PRN Reason: Hypoglycemia Protocol Stop: 07/11/21 10:35 Glucose (Glucose 40% Gel 15 Gm Tube) 15 - 30 gm PO UD PRN; Protocol PRN Reason: Hypoglycemia Protocol Stop: 07/11/21 10:35 Heparin Sodium (Porcine) (Heparin Sod 5,000 Unit/0.5 Ml Vial) 5,000 units SQ Q12 [facility] Stop: 07/11/21 20:59 Last Admin: 06/13/21 08:39 Dose: Not Given Documented by: Hydralazine HCl (Hydralazine Tab 50 Mg Tab) 50 mg PO TID [facility] Stop: 07/11/21 13:59 Last Admin: 06/13/21 08:34 Dose: 50 mg Documented by: Hydralazine HCl (Hydralazine Hcl 25 Mg Tab) 25 mg PO Q8H [facility] Stop: 07/12/21 07:59 Last Admin: 06/13/21 08:40 Dose: 25 mg Documented by: Insulin Aspart (Insulin Aspart Per Unit) 0 units SC ACHS [facility] Stop: 07/11/21 11:29 Last Admin: 06/13/21 08:46 Dose: 1 units Documented by: Isosorbide Mononitrate (Isosorbide Jones Extended Rel 30 Mg Tabcr) 30 mg PO QAM [facility] Stop: 07/12/21 08:59 Last Admin: 06/13/21 08:36 Dose: 30 mg Documented by: Levalbuterol HCl (Levalbuterol Hcl 0.63 Mg/3 Ml Neb) 0.63 mg NEB Q6R PRN; Protocol PRN Reason: sob/wheezing Stop: 07/13/21 12:59 Levetiracetam (Levetiracetam 500 Mg Tab) 500 mg PO DAILY@1800 [facility] Stop: 07/11/21 17:59 Last Admin: 06/12/21 16:33 Dose: 500 mg Documented by: Levetiracetam (Levetiracetam 500 Mg Tab) 500 mg PO DAILY PRN PRN Reason: TO BE GIVEN ON HD DAYS Stop: 07/11/21 14:25 Levothyroxine Sodium (Levothyroxine Sodium 25 Mcg Tablet) [facility] Stop: 07/12/21 06:29 Last Admin: 06/13/21 05:38 Dose: 25 mcg Documented by: Loperamide HCl (Loperamide Hcl 2 Mg Cap) 2 mg PO DAILY [facility] Stop: 07/12/21 08:59 Last Admin: 06/13/21 08:34 Dose: 2 mg Documented by: Loratadine (Loratadine 10 Mg Tab) 5 mg PO DAILY [facility] Stop: 07/12/21 08:59 Last Admin: 06/13/21 08:35 Dose: 5 mg Documented by: Magnesium Oxide (Magnesium Oxide 400 Mg Tab) 400 mg PO QAM [facility] Stop: 07/12/21 08:59 Last Admin: 06/13/21 08:34 Dose: 400 mg Documented by: Melatonin (Melatonin 3 Mg Tab) 3 mg PO [facility] Stop: 07/11/21 20:59 Last Admin: 06/12/21 21:17 Dose: 3 mg Documented by: Metoprolol Tartrate (Metoprolol Tartrate 25 Mg Tab) 12.5 mg PO BID [facility] Stop: 07/11/21 20:59 Last Admin: 06/13/21 08:36 Dose: 12.5 mg Documented by: Miscellaneous (Carbohydrates For Hypoglycemia ) 15 - 30 gm PO UD PRN PRN Reason: Hypoglycemia Protocol Stop: 07/11/21 10:35 Montelukast Sodium (Montelukast Sodium 10 Mg Tablet) 10 mg PO [facility] Stop: 07/11/21 20:59 Last Admin: 06/12/21 21:12 Dose: 10 mg Documented by: Morphine Sulfate (Morphine Sulfate 2 Mg/Ml Carp) 1 mg IV Q6H PRN PRN Reason: Pain Stop: 06/25/21 12:09 Last Admin: 06/11/21 20:13 Dose: 1 mg Documented by: Nitroglycerin (Nitroglycerin Sl 0.4 Mg/Tab Tab) 0.4 mg SL UD PRN PRN Reason: Angina Stop: 07/11/21 11:42 Ondansetron HCl (Ondansetron Inj 2 Mg/Ml 2 Ml Vial) 4 mg IV Q6H PRN PRN Reason: Nausea And Vomiting Stop: 07/11/21 11:42 Pantoprazole Sodium (Pantoprazole 40 Mg Tab) 40 mg PO DAILY [facility] Stop: 07/12/21 08:59 Last Admin: 06/13/21 08:35 Dose: 40 mg Documented by: Ropinirole HCl (Ropinirole Hcl 0.25 Mg Tablet) 0.5 mg PO HS [facility] Stop: 07/11/21 20:59 Last Admin: 06/12/21 21:12 Dose: 0.5 mg Documented by: Sertraline HCl (Sertraline Hcl 50 Mg Tablet) 150 mg PO QAM [facility] Stop: 07/12/21 08:59 Last Admin: 06/13/21 08:34 Dose: 150 mg Documented by: Sevelamer HCl (Sevelamer Hcl 800 Mg Tablet) 1,600 mg PO TIDM [facility] Stop: 07/13/21 11:59 Vitamin D (Cholecalciferol 1,000 Units 25 Mcg Tab) 1,000 units PO DAILY [facility] Stop: 07/12/21 08:59 Last Admin: 06/13/21 08:36 Dose: 1,000 units Documented by: (1) Nausea and vomiting Vomiting type: unspecified Qualified Code(s): R11.2 - Nausea with vomiting, unspecified
[2021-06-13] MEDS: DIPHENOXYLATE/ATROPINE 2.5/0.025MG TAB PO PRN (13:08)
[2021-06-13] MEDS: ONDANSETRON INJ 2 MG/ML 2 ML VIAL IV PRN (13:49)
[2021-06-13] MEDS: levETIRAcetam 500 MG TAB PO SCH (17:43)
[2021-06-13] MEDS: MONTELUKAST SODIUM 10 MG TABLET PO SCH (19:53)
[2021-06-13] MEDS: AMITRIPTYLINE HCL 10 MG TAB PO SCH (19:55)
[2021-06-13] MEDS: rOPINIRole HCL 0.25 MG TABLET PO SCH (19:56)
[2021-06-13] MEDS: MELATONIN 3 MG TAB PO SCH (21:06)
[2021-06-14] MEDS: hydrALAZINE HCL 25 MG TAB PO SCH ×3 (01:00→21:10)
[2021-06-14] MEDS: ONDANSETRON INJ 2 MG/ML 2 ML VIAL IV PRN (06:19)
[2021-06-14] MEDS ORDERED: SODIUM CHLORIDE 0.9% 1000ML 1,000 ML IV PRN (07:00)
[2021-06-14] MEDS ORDERED: HEPARIN SOD (PORCINE) 1000 UNIT/ML IV ONE (07:00)
[2021-06-14] MEDS ORDERED: EPOETIN ALFA 10,000 UNITS/ML VIAL IV ONE (07:00)
[2021-06-14] MEDS: LEVOTHYROXINE SODIUM 25 MCG TABLET PO SCH (07:48)
[2021-06-14] MEDS: BUTALBITAL/ACETAMIN/CAFFEINE TAB PO PRN ×3 (07:48→19:10)
[2021-06-14] MEDS: INSULIN ASPART PER UNIT SC SCH ×4 (08:58→22:39)
[2021-06-14] MEDS: SEVELAMER HCL 800 MG TABLET PO SCH ×4 (08:59→19:11)
[2021-06-14] MEDS: AZELASTINE HCL 0.1% NASAL 200 SPRAYS/27,400 MCG BTL SCH ×2 (08:59→21:25)
[2021-06-14] MEDS: FLUTICASONE/VILANTEROL 100/25MCG 14 PUFFS/INHALER INH SCH (08:59)
[2021-06-14] MEDS: hydrALAZINE TAB 50 MG TAB PO SCH ×3 (09:00→21:11)
[2021-06-14] MEDS: LORATADINE 10 MG TAB PO SCH (09:00)
[2021-06-14] MEDS: ASPIRIN 81 MG ECTAB PO SCH (09:00)
[2021-06-14] MEDS: SERTRALINE HCL 50 MG TABLET PO SCH (09:00)
[2021-06-14] MEDS: CLOPIDOGREL BISULFATE 75 MG TAB PO SCH (09:00)
[2021-06-14] MEDS: PANTOprazole 40 MG TAB PO SCH (09:01)
[2021-06-14] MEDS: CHOLECALCIFEROL 1,000 UNITS 25 MCG TAB PO SCH (09:01)
[2021-06-14] MEDS: LOPERAMIDE HCL 2 MG CAP PO SCH (09:01)
[2021-06-14] MEDS: ISOSORBIDE MONO EXTENDED REL 30 MG TABCR PO SCH (09:01)
[2021-06-14] MEDS: amLODIPine BESYLATE 5 MG TAB PO SCH (09:01)
[2021-06-14] MEDS: MAGNESIUM OXIDE 400 MG TAB PO SCH (09:01)
[2021-06-14] MEDS: METOPROLOL TARTRATE 25 MG TAB PO SCH ×2 (09:01→21:14)
[2021-06-14] MEDS: FUROSEMIDE 40 MG TAB PO SCH (09:01)
[2021-06-14] MEDS: HEPARIN SOD 5,000 UNIT/0.5 ML VIAL SQ SCH ×2 (09:02→21:09)
[2021-06-14] MEDS: CALCIUM CARBONATE 500 MG CHEWABLE TAB PO PRN (10:00)
--- NOTE | 2021-06-14 10:18 | Nephrology Progress Note ---
Date of Service June 14, 2021 Assessment & Plan Admission and Anticipated Discharge Date Admission Date: June 11, 2021 Subjective Assessment & Plan (1) ESRD (end stage renal disease) on dialysis: Plan: ESRD on HD (non-compliant): -H/Overy non-compliant with dialysis Tx. Welfare check with Police was done--she is very angry about this. She is refusing all help--Refused SNF. Does not even allow Home Nurses to come. -Comfortable today. -We will dialyze her today. (3) Nausea and vomiting: Plan: N/V and diarrhea with abd pain: - COVID neg - CT abd and CXR: no acute finding - Likley Gastroenteritis- as per primary, -Resolved (4) Atrial fibrillation with RVR: (5) Anemia: Plan: Chronic Anemia: -Continue on outpatient dose of Epo, Subjective Looks anxious and wants to go home. Nausea and diarrhea has stopped. Afraid of eating, she thinks that this would trigger her Diarrhea. Still very upset about welfare check Review of Systems Review of Systems: All systems reviewed & are unremarkable except as noted in HPI & below Physical Exam Physical Exam: General:.Alert , oriented, not in distress. HEENT:.Normocephalic and atraumatic, Normal Conjunctiva, EOMI, Sclera is non- icteric Lungs:.No signs of respiratory distress, CTA, no wheezing or crackles Heart:. Normal heart sounds,no murmur Abdominal:.Diffuse tenderness, Soft, normal BS MSK:.No deformities of UE and LE, No leg edema Psych:.AAOx3 Results & Data ([facility]) Vital Signs (Past 12 Hours) Vital Signs Temp Pulse Resp BP Pulse Ox 06/14/21 07:09 36.7 C 67 19 165/72 H 94
--- NOTE | 2021-06-14 14:24 | Hospitalist Progress Note ---
Date of Service June 14, 2021 Assessment & Plan (1) Hypertensive emergency: (2) Atrial fibrillation with RVR: (3) Nausea and vomiting: (4) ESRD (end stage renal disease) on dialysis: (5) Anemia: (6) DM2 (diabetes mellitus, type 2): (7) Anxiety: (8) Depression: (9) History of CVA (cerebrovascular accident): (10) COPD (chronic obstructive pulmonary disease): (11) GERD (gastroesophageal reflux disease): (12) Seizure: Plan: Pt is a 71 y/o F with hx of DMII, ESRD on HD (non-compliant), CAD s/p CABG, COPD, Afib (not on AC did not tolerate coumadin), HTN, Hypothyroidism, HLD, RLS, Chronic Anemia (bl: 10), Seizure, Depression/Anxiety, GERD, Insomnia, RLS, Migraine admitted for 1 week of N/V, diarrhea with abd pain and missed dialysis sessions. CT a/p and CXR revealed no acute findings. GI sx felt likely 2/2 to viral gastroenteritis. Pt has hypertensive emergency likely in setting of missed HD x 1 week. She was Dialyzed on Sunday06/11/21 with 900 mils of UF. She was started on imdur 30mg daily for better blood pressure control. Her hos pitalization was complicated with afib with RVR likely 2/2 to illness, missed HD and missed metoprolol dose. This resolved with IV lopressor and she returned to normal sinus rhythm. She is not on oral anticoagulation due to poorly tolerated in past. Her N/V/D resolved by day of discharge and she was feeling back to baseline. She offered no acute concerns of day of discharge except for allergy sx related to her asthma including headache, congestion and mild sob. This resolved with allergy medications and her routine inhalers. She continues to make urine despite HD. She will continue HD at discharge on . Plan is for her to switch to [facility] HD center and this will be arranged as outpt. She will continue all other home medications. Plan was for pt to be d/c today; however has not yet had HD at 14:30 so far today. Plan is for her to have HD today. Her GI sx have improved and she is tolerated diet. Discussed with pt, plan will be to discharge Pt in a.m. BP better today 165/72 continue all meds will repeat labs in a.m. continue prn antidiarrheals DVT ppx: SQ Heparin Dispo: re eval in a.m. to d/c FULL CODE Admission and Anticipated Discharge Date Admission Date: June 11, 2021 Supervising Physician Co-Signing Physician Notes I saw this patient with the physician student assistant, I formulated the assessment and plan personally with the physician student assistant and went over it with the patient. Physical Exam Gen-AAO x 3, NAD, Afebrile Head-NCAT, EOMI, PERRLA, Anicteric Sclera, No Posterior Pharyngeal Erythema Neck-Supple, No JVD, No Thyromegaly, No Masses, No LAD, No Bruits Lungs-Clear to Auscultation Bilaterally, No Rales, No Rhonchi, No Wheezing, No Crepitus Chest-No S4, +S1, +S2, No S3, No Murmurs, No Rubs, No Gallops, No Ectopy Abdomen-Soft, Bowel Sounds Present, Non Tender, Non Distended, No Hepatomegaly, No Splenomegaly, No Palpable Masses, No Rebound, No Rigidity, No Guarding Musculoskeletal-Full Range of Motion Bilaterally, No CVAT Extremities-No Cyanosis, No Clubbing, No Edema Nuero-Cranial Nerves II-XII grossly intact, Motor WNL, DTRs WNL, Strength WNL, Non Focal Psych-Normal Mood Subjective Pt was seen and examined in room 383-2. Follow up N/V/D, gastroenteritis, and ESRD on HD. She is feeling better this morning. Tolerating breakfast. No further diarrhea, but some occasional cramping. Plan is have HD today, but has not yet gone yet. Denies f/c/s, chest pain, sob, n/v/d. Review of Systems Review of Systems: All systems reviewed & are unremarkable except as noted in HPI & below Physical Exam Physical Exam: Gen: WD/WN, F, NAD, A&O x3 HEENT: Normocephalic, atraumatic, conjunctivae moist, sclerae anicteric, mucous membranes moist. Lung: Clear to Auscultation bilaterally, no wheezes/rales/rhonchi Heart: Regular rate, regular rhythm, no murmurs, rubs, or gallops Abdomen: Soft, NT, ND +BS x 4 Extremities: No edema Skin: Warm, no rash, negative turgor. Results & Data Results & Data ([facility]) Vital Signs (Past 12 Hours) Vital Signs Temp Pulse Resp BP Pulse Ox 06/14/21 07:09 36.7 C 67 19 165/72 H 94 Medications Administered Current Inpatient Medications Acetaminophen/Butalbital/Caffeine (Butalbital/Acetamin/Caffeine Tab) 1 tab PO Q4H PRN PRN Reason: Headache Stop: 07/12/21 11:23 Last Admin: 06/14/21 14:08 Dose: 1 tab Documented by: Amitriptyline HCl (Amitriptyline Hcl 10 Mg Tab) 10 mg PO [facility] Stop: 07/11/21 20:59 Last Admin: 06/13/21 19:55 Dose: 10 mg Documented by: Amlodipine Besylate (Amlodipine Besylate 5 Mg Tab) 10 mg PO QAM [facility] Stop: 07/12/21 08:59 Last Admin: 06/14/21 09:01 Dose: 10 mg Documented by: Aspirin (Aspirin 81 Mg Ectab) 81 mg PO QAM [facility] Stop: 07/12/21 08:59 Last Admin: 06/14/21 09:00 Dose: 81 mg Documented by: Azelastine HCl (Azelastine Hcl 0.1% Nasal 200 Sprays/27,400 Mcg Btl) 2 sprays NA BID [facility] Stop: 07/13/21 09:14 Last Admin: 06/14/21 08:59 Dose: 2 sprays Documented by: Calcium Carbonate (Calcium Carbonate 500 Mg Chewable Tab) 500 mg PO BID PRN PRN Reason: Heartburn Stop: 07/11/21 21:38 Last Admin: 06/14/21 10:00 Dose: 500 mg Documented by: Clopidogrel Bisulfate (Clopidogrel Bisulfate 75 Mg Tab) 75 mg PO DAILY [facility] Stop: 07/12/21 08:59 Last Admin: 06/14/21 09:00 Dose: 75 mg Documented by: Dextrose (Dextrose 50% 50 Ml Syringe) 25 - 50 ml IV UD PRN; Protocol PRN Reason: Hypoglycemia Protocol Stop: 07/11/21 10:35 Diphenoxylate HCl/Atropine (Diphenoxylate/Atropine 2.5/0.025mg Tab) 1 tab PO DAILY PRN PRN Reason: Diarrhea Stop: 07/11/21 11:42 Last Admin: 06/13/21 13:08 Dose: 1 tab Documented by: Fluticasone/Vilanterol (Fluticasone/Vilanterol 100/25mcg 14 Puffs/Inhaler) 1 puffs INH DAILY [facility] Stop: 07/12/21 08:59 Last Admin: 06/14/21 08:59 Dose: 1 puffs Documented by: Furosemide (Furosemide 40 Mg Tab) 40 mg PO QAM [facility] Stop: 07/12/21 08:59 Last Admin: 06/14/21 09:01 Dose: 40 mg Documented by: Glucagon (Glucagon For Inj 1 Mg Vial) 1 mg SQ UD PRN; Protocol PRN Reason: Hypoglycemia Protocol Stop: 07/11/21 10:35 Glucose (Glucose 10 Tabs/Tube) 4 - 8 tabs PO UD PRN; Protocol PRN Reason: Hypoglycemia Protocol Stop: 07/11/21 10:35 Glucose (Glucose 40% Gel 15 Gm Tube) 15 - 30 gm PO UD PRN; Protocol PRN Reason: Hypoglycemia Protocol Stop: 07/11/21 10:35 Heparin Sodium (Porcine) (Heparin Sod 5,000 Unit/0.5 Ml Vial) 5,000 units SQ Q12 [facility] Stop: 07/11/21 20:59 Last Admin: 06/14/21 09:02 Dose: Not Given Documented by: Hydralazine HCl (Hydralazine Tab 50 Mg Tab) 50 mg PO TID [facility] Stop: 07/11/21 13:59 Last Admin: 06/14/21 09:00 Dose: 50 mg Documented by: Hydralazine HCl (Hydralazine Hcl 25 Mg Tab) 25 mg PO Q8H [facility] Stop: 07/12/21 07:59 Last Admin: 06/14/21 09:00 Dose: 25 mg Documented by: Insulin Aspart (Insulin Aspart Per Unit) 0 units SC ACHS [facility] Stop: 07/11/21 11:29 Last Admin: 06/14/21 12:31 Dose: 2 units Documented by: Isosorbide Mononitrate (Isosorbide Bradley Extended Rel 30 Mg Tabcr) 30 mg PO QAM [facility] Stop: 07/12/21 08:59 Last Admin: 06/14/21 09:01 Dose: 30 mg Documented by: Levalbuterol HCl (Levalbuterol Hcl 0.63 Mg/3 Ml Neb) 0.63 mg NEB Q6R PRN; Protocol PRN Reason: sob/wheezing Stop: 07/13/21 12:59 Last Admin: 06/13/21 19:30 Dose: 0.63 mg Documented by: Levetiracetam (Levetiracetam 500 Mg Tab) 500 mg PO DAILY@1800 [facility] Stop: 07/11/21 17:59 Last Admin: 06/13/21 17:43 Dose: 500 mg Documented by: Levetiracetam (Levetiracetam 500 Mg Tab) 500 mg PO DAILY PRN PRN Reason: TO BE GIVEN ON HD DAYS Stop: 07/11/21 14:25 Levothyroxine Sodium (Levothyroxine Sodium 25 Mcg Tablet) [facility]: 07/12/21 06:29 Last Admin: 06/14/21 07:48 Dose: 25 mcg Documented by: Loperamide HCl (Loperamide Hcl 2 Mg Cap) 2 mg PO DAILY [facility] Stop: 07/12/21 08:59 Last Admin: 06/14/21 09:01 Dose: 2 mg Documented by: Loratadine (Loratadine 10 Mg Tab) 5 mg PO DAILY [facility] Stop: 07/12/21 08:59 Last Admin: 06/14/21 09:00 Dose: 5 mg Documented by: Magnesium Oxide (Magnesium Oxide 400 Mg Tab) 400 mg PO QAM [facility] Stop: 07/12/21 08:59 Last Admin: 06/14/21 09:01 Dose: 400 mg Documented by: Melatonin (Melatonin 3 Mg Tab) 3 mg PO HS [facility] Stop: 07/11/21 20:59 Last Admin: 06/13/21 21:06 Dose: 3 mg Documented by: Metoprolol Tartrate (Metoprolol Tartrate 25 Mg Tab) 12.5 mg PO BID [facility] Stop: 07/11/21 20:59 Last Admin: 06/14/21 09:01 Dose: 12.5 mg Documented by: Miscellaneous (Carbohydrates For Hypoglycemia ) 15 - 30 gm PO UD PRN PRN Reason: Hypoglycemia Protocol Stop: 07/11/21 10:35 Montelukast Sodium (Montelukast Sodium 10 Mg Tablet) 10 mg PO [facility] Stop: 07/11/21 20:59 Last Admin: 06/13/21 19:53 Dose: 10 mg Documented by: Morphine Sulfate (Morphine Sulfate 2 Mg/Ml Carp) 1 mg IV Q6H PRN PRN Reason: Pain Stop: 06/25/21 12:09 Last Admin: 06/11/21 20:13 Dose: 1 mg Documented by: Nitroglycerin (Nitroglycerin Sl 0.4 Mg/Tab Tab) 0.4 mg SL UD PRN PRN Reason: Angina Stop: 07/11/21 11:42 Ondansetron HCl (Ondansetron Inj 2 Mg/Ml 2 Ml Vial) 4 mg IV Q6H PRN PRN Reason: Nausea And Vomiting Stop: 07/11/21 11:42 Last Admin: 06/14/21 06:19 Dose: 4 mg Documented by: Pantoprazole Sodium (Pantoprazole 40 Mg Tab) 40 mg PO DAILY [facility] Stop: 07/12/21 08:59 Last Admin: 06/14/21 09:01 Dose: 40 mg Documented by: Ropinirole HCl (Ropinirole Hcl 0.25 Mg Tablet) 0.5 mg PO HS [facility] Stop: 07/11/21 20:59 Last Admin: 06/13/21 19:56 Dose: 0.5 mg Documented by: Sertraline HCl (Sertraline Hcl 50 Mg Tablet) 150 mg PO QAM [facility] Stop: 07/12/21 08:59 Last Admin: 06/14/21 09:00 Dose: 150 mg Documented by: Sevelamer HCl (Sevelamer Hcl 800 Mg Tablet) 1,600 mg PO TIDM [facility] Stop: 07/13/21 11:59 Last Admin: 06/14/21 12:31 Dose: 1,600 mg Documented by: Vitamin D (Cholecalciferol 1,000 Units 25 Mcg Tab) 1,000 units PO DAILY [facility] Stop: 07/12/21 08:59 Last Admin: 06/14/21 09:01 Dose: 1,000 units Documented by: (1) Nausea and vomiting Vomiting type: unspecified Qualified Code(s): R11.2 - Nausea with vomiting, unspecified
[2021-06-14] MEDS: levETIRAcetam 500 MG TAB PO SCH ×2 (19:15→19:16)
[2021-06-14] MEDS: AMITRIPTYLINE HCL 10 MG TAB PO SCH (21:11)
[2021-06-14] MEDS: MONTELUKAST SODIUM 10 MG TABLET PO SCH (21:12)
[2021-06-14] MEDS: rOPINIRole HCL 0.25 MG TABLET PO SCH (21:13)
[2021-06-14] MEDS: MELATONIN 3 MG TAB PO SCH (21:15)
[2021-06-14] MEDS ORDERED: SUMAtriptan succinate 50 MG TAB PO STA (22:31)
[2021-06-15] MEDS: LEVOTHYROXINE SODIUM 25 MCG TABLET PO SCH (05:37)
[2021-06-15 07:26] LABS: Hematocrit (blood only) 27.4 % (37-47); Hemoglobin 8.9 g/dL (12.0-16.0); Mean Corpuscular Hgb Conc 32.5 g/dL (32-36); Mean Corpuscular Volume 95.5 fL (80-100); Mean Platelet Volume 10.2 fL (7.4-10.4); Platelet Count 140 K/uL (130-400); RDW Coefficient of Variation 16.2 % (11.5-14.5); RDW Standard Deviation 56.5 fL (36.4-46.3); Red Blood Count 2.87 M/uL (4.2-5.4); White Blood Count 6.16 K/uL (4.8-10.8)
[2021-06-15] MEDS: METOPROLOL TARTRATE 25 MG TAB PO SCH ×2 (07:36→20:45)
[2021-06-15] MEDS: PANTOprazole 40 MG TAB PO SCH (07:39)
[2021-06-15] MEDS: amLODIPine BESYLATE 5 MG TAB PO SCH (07:40)
[2021-06-15] MEDS: ASPIRIN 81 MG ECTAB PO SCH (07:40)
[2021-06-15] MEDS: SEVELAMER HCL 800 MG TABLET PO SCH ×3 (07:40→17:36)
[2021-06-15] MEDS: CLOPIDOGREL BISULFATE 75 MG TAB PO SCH (07:41)
[2021-06-15] MEDS: FUROSEMIDE 40 MG TAB PO SCH (07:41)
[2021-06-15] MEDS: hydrALAZINE HCL 25 MG TAB PO SCH ×3 (07:42→20:44)
[2021-06-15] MEDS: SERTRALINE HCL 50 MG TABLET PO SCH (07:42)
[2021-06-15] MEDS: LORATADINE 10 MG TAB PO SCH (07:43)
[2021-06-15] MEDS: ISOSORBIDE MONO EXTENDED REL 30 MG TABCR PO SCH (07:43)
[2021-06-15] MEDS: CHOLECALCIFEROL 1,000 UNITS 25 MCG TAB PO SCH (07:44)
[2021-06-15] MEDS: hydrALAZINE TAB 50 MG TAB PO SCH ×3 (07:44→20:45)
[2021-06-15] MEDS: HEPARIN SOD 5,000 UNIT/0.5 ML VIAL SQ SCH ×3 (07:45→20:49)
[2021-06-15] MEDS: AZELASTINE HCL 0.1% NASAL 200 SPRAYS/27,400 MCG BTL SCH ×2 (07:45→20:44)
[2021-06-15] MEDS: MAGNESIUM OXIDE 400 MG TAB PO SCH (07:46)
[2021-06-15] MEDS: FLUTICASONE/VILANTEROL 100/25MCG 14 PUFFS/INHALER INH SCH (07:46)
[2021-06-15] MEDS: LOPERAMIDE HCL 2 MG CAP PO SCH (07:48)
[2021-06-15 07:52] LABS: BUN Creatinine Ratio 9.1 (10-20); Creatinine Clr Calc Pharmacy 18.6 ml/min; Est GFR (Non-African American) 18.1 ml/min
[2021-06-15] MEDS: ACETAMINOPHEN 325 MG TAB PO PRN ×2 (07:53→21:42)
[2021-06-15] MEDS: INSULIN ASPART PER UNIT SC SCH ×4 (09:16→20:52)
--- NOTE | 2021-06-15 13:11 | Hospitalist Progress Note ---
Date of Service June 15, 2021 Assessment & Plan (1) Hypertensive emergency: (2) Atrial fibrillation with RVR: (3) Nausea and vomiting: (4) ESRD (end stage renal disease) on dialysis: (5) Anemia: (6) DM2 (diabetes mellitus, type 2): (7) Anxiety: (8) Depression: (9) History of CVA (cerebrovascular accident): (10) COPD (chronic obstructive pulmonary disease): (11) GERD (gastroesophageal reflux disease): (12) Seizure: Plan: Pt is a 71 y/o F with hx of DMII, ESRD on HD (non-compliant), CAD s/p CABG, COPD, Afib (not on AC did not tolerate coumadin), HTN, Hypothyroidism, HLD, RLS, Chronic Anemia (bl: 10), Seizure, Depression/Anxiety, GERD, Insomnia, RLS, Migraine admitted for 1 week of N/V, diarrhea with abd pain and missed dialysis sessions. CT a/p and CXR revealed no acute findings. GI sx felt likely 2/2 to viral gastroenteritis. Pt has hypertensive emergency likely in setting of missed HD x 1 week. She was Dialyzed on Sunday06/11/21 with 900 mils of UF. She was started on imdur 30mg daily for better blood pressure control as well as hydralazine was increased to 75mg tid. Her hospitalization was complicated with afib with RVR likely 2/2 to illness, missed HD and missed metoprolol dose. This resolved with IV lopressor and she returned to normal sinus rhythm. She is not on oral anticoagulation due to poorly tolerated in past. Her N/V/D resolved by day of discharge and she was feeling back to baseline. She offered no acute con cerns of day of discharge. She continues to make urine despite HD. She will continue HD at discharge on . Plan is for her to switch to [facility] HD center and this will be arranged as outpt. Pt did have + FOBT. Her hgb improved to 8.9 on discharge. She is on a PPI. Discussed with GI. Pt denies black stool/melena. She has no external hemorrhoids. She has scheduled OP appt on Tuesday 06/20 with GI so will keep scheduled appointment. She will continue all other home medications. Plan is for pt to be d/c today as she is medically stable; however given severe winter weather may have to wait til tomorrow If she does remain admitted she will be scheduled for HD tomorrow - discussed with nursing to arrange first thing in a.m. if able Her GI sx have improved and she is tolerating diet. BP better today 166/61 continue all meds continue prn antidiarrheals Pt had stool test sent today that was ordered on admission, + FOBT hgb improving to 8.9 receives epo as outpt on PPI discussed with GI - pt is scheduled to see Dr. Clemens on Tuesday 06/20. Will keep scheduled appointment pt denies black/tarry stool, no hemorrhoid on exam L leg pain 2/2 to arthritis, prior surgery give one time dose of tramadol 25mg DVT ppx: SQ Heparin Dispo: pt ready to d/c, likely tomorrow 2/2 to weather FULL CODE Admission and Anticipated Discharge Date Admission Date: June 11, 2021 Subjective Pt was seen and examined in room 383-2. Follow up N/V/D, gastroenteritis, and ESRD on HD. She is feeling better this morning. Tolerating breakfast. No further diarrhea, but some occasional cramping. Plan is have HD today, but has not yet gone yet. Denies f/c/s, chest pain, sob, n/v/d. Review of Systems Review of Systems: All systems reviewed & are unremarkable except as noted in HPI & below Physical Exam Physical Exam: Gen: WD/WN, F, NAD, A&O x3 HEENT: Normocephalic, atraumatic, conjunctivae moist, sclerae anicteric, mucous membranes moist. Lung: Clear to Auscultation bilaterally, no wheezes/rales/rhonchi Heart: Regular rate, regular rhythm, no murmurs, rubs, or gallops Abdomen: Soft, NT, ND +BS x 4 Extremities: No edema Skin: Warm, no rash, negative turgor. : no hemorrhoid Results & Data Results & Data ([facility]) Vital Signs (Past 12 Hours) Vital Signs Temp Pulse Resp BP Pulse Ox 06/15/21 09:03 166/61 H 06/15/21 07:05 37 C 69 18 209/69 H 93 Laboratory Results Short CBC 06/15/21 Range/Units 06:56 WBC 6.16 (4.8-10.8) K/uL Hgb 8.9 L (12.0-16.0) g/dL Hct 27.4 L (37-47) % Plt Count 140 (130-400) K/uL [facility] 06/15/21 06:56 Sodium 140 Potassium 4.0 Chloride 105 Carbon Dioxide 29 BUN 23 Creatinine 2.54 H Glucose 121 H Calcium 8.0 L Medications Administered Current Inpatient Medications Acetaminophen (Acetaminophen 325 Mg Tab) 650 mg PO Q4H PRN PRN Reason: Pain or Fever Stop: 07/14/21 22:22 Last Admin: 06/15/21 07:53 Dose: 650 mg Documented by: Acetaminophen/Butalbital/Caffeine (Butalbital/Acetamin/Caffeine Tab) 1 tab PO Q4H PRN PRN Reason: Headache Stop: 07/12/21 11:23 Last Admin: 06/14/21 19:10 Dose: 1 tab Documented by: Amitriptyline HCl (Amitriptyline Hcl 10 Mg Tab) 10 mg PO [facility] Stop: 07/11/21 20:59 Last Admin: 06/14/21 21:11 Dose: 10 mg Documented by: Amlodipine Besylate (Amlodipine Besylate 5 Mg Tab) 10 mg PO [facility] Stop: 07/12/21 08:59 Last Admin: 06/15/21 07:40 Dose: 10 mg Documented by: Aspirin (Aspirin 81 Mg Ectab) 81 mg PO QAM [facility] Stop: 07/12/21 08:59 Last Admin: 06/15/21 07:40 Dose: 81 mg Documented by: Azelastine HCl (Azelastine Hcl 0.1% Nasal 200 Sprays/27,400 Mcg Btl) 2 sprays NA BID [facility] Stop: 07/13/21 09:14 Last Admin: 06/15/21 07:45 Dose: 2 sprays Documented by: Calcium Carbonate (Calcium Carbonate 500 Mg Chewable Tab) 500 mg PO BID PRN PRN Reason: Heartburn Stop: 07/11/21 21:38 Last Admin: 06/14/21 10:00 Dose: 500 mg Documented by: Clopidogrel Bisulfate (Clopidogrel Bisulfate 75 Mg Tab) 75 mg PO DAILY [facility] Stop: 07/12/21 08:59 Last Admin: 06/15/21 07:41 Dose: 75 mg Documented by: Dextrose (Dextrose 50% 50 Ml Syringe) 25 - 50 ml IV UD PRN; Protocol PRN Reason: Hypoglycemia Protocol Stop: 07/11/21 10:35 Diphenoxylate HCl/Atropine (Diphenoxylate/Atropine 2.5/0.025mg Tab) 1 tab PO DAILY PRN PRN Reason: Diarrhea Stop: 07/11/21 11:42 Last Admin: 06/13/21 13:08 Dose: 1 tab Documented by: Fluticasone/Vilanterol (Fluticasone/Vilanterol 100/25mcg 14 Puffs/Inhaler) 1 puffs INH DAILY [facility] Stop: 07/12/21 08:59 Last Admin: 06/15/21 07:46 Dose: 1 puffs Documented by: Furosemide (Furosemide 40 Mg Tab) 40 mg PO QAM [facility] Stop: 07/12/21 08:59 Last Admin: 06/15/21 07:41 Dose: 40 mg Documented by: Glucagon (Glucagon For Inj 1 Mg Vial) 1 mg SQ UD PRN; Protocol PRN Reason: Hypoglycemia Protocol Stop: 07/11/21 10:35 Glucose (Glucose 10 Tabs/Tube) 4 - 8 tabs PO UD PRN; Protocol PRN Reason: Hypoglycemia Protocol Stop: 07/11/21 10:35 Glucose (Glucose 40% Gel 15 Gm Tube) 15 - 30 gm PO UD PRN; Protocol PRN Reason: Hypoglycemia Protocol Stop: 07/11/21 10:35 Heparin Sodium (Porcine) (Heparin Sod 5,000 Unit/0.5 Ml Vial) 5,000 units SQ Q12 [facility] Stop: 07/11/21 20:59 Last Admin: 06/15/21 07:45 Dose: Not Given Documented by: Hydralazine HCl (Hydralazine Tab 50 Mg Tab) 50 mg PO TID [facility] Stop: 07/11/21 13:59 Last Admin: 06/15/21 07:44 Dose: 50 mg Documented by: Hydralazine HCl (Hydralazine Hcl 25 Mg Tab) 25 mg PO TID [facility] Stop: 07/12/21 07:59 Last Admin: 06/15/21 07:42 Dose: 25 mg Documented by: Insulin Aspart (Insulin Aspart Per Unit) 0 units SC ACHS [facility] Stop: 07/11/21 11:29 Last Admin: 06/15/21 12:59 Dose: 2 units Documented by: Isosorbide Mononitrate (Isosorbide Archuleta Extended Rel 30 Mg Tabcr) 30 mg PO QAM [facility] Stop: 07/12/21 08:59 Last Admin: 06/15/21 07:43 Dose: 30 mg Documented by: Levalbuterol HCl (Levalbuterol Hcl 0.63 Mg/3 Ml Neb) 0.63 mg NEB Q6R PRN; Protocol PRN Reason: sob/wheezing Stop: 07/13/21 12:59 Last Admin: 06/13/21 19:30 Dose: 0.63 mg Documented by: Levothyroxine Sodium (Levothyroxine Sodium 25 Mcg Tablet) 25 mcg PO DAILYBB [facility] Stop: 07/12/21 06:29 Last Admin: 06/15/21 05:37 Dose: 25 mcg Documented by: Loperamide HCl (Loperamide Hcl 2 Mg Cap) 2 mg PO DAILY [facility] Stop: 07/12/21 08:59 Last Admin: 06/15/21 07:48 Dose: 2 mg Documented by: Loratadine (Loratadine 10 Mg Tab) 5 mg PO DAILY [facility] Stop: 07/12/21 08:59 Last Admin: 06/15/21 07:43 Dose: 5 mg Documented by: Magnesium Oxide (Magnesium Oxide 400 Mg Tab) 400 mg PO QAM [facility] [place] Stop: 07/12/21 08:59 Last Admin: 06/15/21 07:46 Dose: 400 mg Documented by: Melatonin (Melatonin 3 Mg Tab) 3 mg PO [facility] Stop: 07/11/21 20:59 Last Admin: 06/14/21 21:15 Dose: 3 mg Documented by: Metoprolol Tartrate (Metoprolol Tartrate 25 Mg Tab) 12.5 mg PO BID [facility] Stop: 07/11/21 20:59 Last Admin: 06/15/21 07:36 Dose: 12.5 mg Documented by: Miscellaneous (Carbohydrates For Hypoglycemia ) 15 - 30 gm PO UD PRN PRN Reason: Hypoglycemia Protocol Stop: 07/11/21 10:35 Montelukast Sodium (Montelukast Sodium 10 Mg Tablet) 10 mg PO [facility] Stop: 07/11/21 20:59 Last Admin: 06/14/21 21:12 Dose: 10 mg Documented by: Morphine Sulfate (Morphine Sulfate 2 Mg/Ml Carp) 1 mg IV Q6H PRN PRN Reason: Pain Stop: 06/25/21 12:09 Last Admin: 06/11/21 20:13 Dose: 1 mg Documented by: Nitroglycerin (Nitroglycerin Sl 0.4 Mg/Tab Tab) 0.4 mg SL UD PRN PRN Reason: Angina Stop: 07/11/21 11:42 Ondansetron HCl (Ondansetron Inj 2 Mg/Ml 2 Ml Vial) 4 mg IV Q6H PRN PRN Reason: Nausea And Vomiting Stop: 07/11/21 11:42 Last Admin: 06/14/21 06:19 Dose: 4 mg Documented by: Pantoprazole Sodium (Pantoprazole 40 Mg Tab) 40 mg PO DAILY [facility] Stop: 07/12/21 08:59 Last Admin: 06/15/21 07:39 Dose: 40 mg Documented by: Ropinirole HCl (Ropinirole Hcl 0.25 Mg Tablet) 0.5 mg PO HS [facility] Stop: 07/11/21 20:59 Last Admin: 06/14/21 21:13 Dose: 0.5 mg Documented by: Sertraline HCl (Sertraline Hcl 50 Mg Tablet) 150 mg PO QAM [facility] Stop: 07/12/21 08:59 Last Admin: 06/15/21 07:42 Dose: 150 mg Documented by: Sevelamer HCl (Sevelamer Hcl 800 Mg Tablet) 1,600 mg PO TIDM [facility] Stop: 07/13/21 11:59 Last Admin: 06/15/21 13:00 Dose: 1,600 mg Documented by: Vitamin D (Cholecalciferol 1,000 Units 25 Mcg Tab) 1,000 units PO DAILY [facility] Stop: 07/12/21 08:59 Last Admin: 06/15/21 07:44 Dose: 1,000 units Documented by: (1) Nausea and vomiting Vomiting type: unspecified Qualified Code(s): R11.2 - Nausea with vomiting, unspecified
[2021-06-15] MEDS ORDERED: traMADol HCL 50 MG TABLET PO STA (14:26)
[2021-06-15] MEDS: AMITRIPTYLINE HCL 10 MG TAB PO SCH (20:44)
[2021-06-15] MEDS: rOPINIRole HCL 0.25 MG TABLET PO SCH (20:45)
[2021-06-15] MEDS: MONTELUKAST SODIUM 10 MG TABLET PO SCH (20:45)
[2021-06-15] MEDS: MELATONIN 3 MG TAB PO SCH (20:45)
[2021-06-15] MEDS ORDERED: ACETAMINOPHEN W/CODEINE #3 1 TAB PO ONE (21:37)
[2021-06-15] MEDS: DIPHENOXYLATE/ATROPINE 2.5/0.025MG TAB PO PRN (21:40)
[2021-06-15] MEDS: ONDANSETRON INJ 2 MG/ML 2 ML VIAL IV PRN (23:22)
[2021-06-16] MEDS: LEVOTHYROXINE SODIUM 25 MCG TABLET PO SCH (06:12)
[2021-06-16] MEDS: FLUTICASONE/VILANTEROL 100/25MCG 14 PUFFS/INHALER INH SCH (07:33)
[2021-06-16] MEDS: AZELASTINE HCL 0.1% NASAL 200 SPRAYS/27,400 MCG BTL SCH (07:34)
[2021-06-16] MEDS: METOPROLOL TARTRATE 25 MG TAB PO SCH (07:34)
[2021-06-16] MEDS: CHOLECALCIFEROL 1,000 UNITS 25 MCG TAB PO SCH (07:35)
[2021-06-16] MEDS: PANTOprazole 40 MG TAB PO SCH (07:35)
[2021-06-16] MEDS: hydrALAZINE HCL 25 MG TAB PO SCH (07:36)
[2021-06-16] MEDS: MAGNESIUM OXIDE 400 MG TAB PO SCH (07:36)
[2021-06-16] MEDS: hydrALAZINE TAB 50 MG TAB PO SCH (07:37)
[2021-06-16] MEDS: ISOSORBIDE MONO EXTENDED REL 30 MG TABCR PO SCH (07:37)
[2021-06-16] MEDS: SERTRALINE HCL 50 MG TABLET PO SCH (07:37)
[2021-06-16] MEDS: SEVELAMER HCL 800 MG TABLET PO SCH (07:38)
[2021-06-16] MEDS: LORATADINE 10 MG TAB PO SCH (07:38)
[2021-06-16] MEDS: FUROSEMIDE 40 MG TAB PO SCH (07:38)
[2021-06-16] MEDS: CLOPIDOGREL BISULFATE 75 MG TAB PO SCH (07:39)
[2021-06-16] MEDS: ASPIRIN 81 MG ECTAB PO SCH (07:39)
[2021-06-16] MEDS: amLODIPine BESYLATE 5 MG TAB PO SCH (07:39)
[2021-06-16] MEDS: LOPERAMIDE HCL 2 MG CAP PO SCH (07:45)
[2021-06-16] MEDS: HEPARIN SOD 5,000 UNIT/0.5 ML VIAL SQ SCH (07:45)
[2021-06-16] MEDS: INSULIN ASPART PER UNIT SC SCH ×2 (09:31→12:41)
[2021-06-16] MEDS: ONDANSETRON INJ 2 MG/ML 2 ML VIAL IV PRN (10:09)
[2021-06-16] MEDS ORDERED: HEPARIN SOD (PORCINE) 1000 UNIT/ML IV ONE (10:31)
[2021-06-16] MEDS ORDERED: SODIUM CHLORIDE 0.9% 1000ML 1,000 ML IV PRN (10:31)
[2021-06-16] MEDS ORDERED: HEPARIN SOD (PORCINE) 1000 UNIT/ML IV SCH (10:45)
[2021-06-16] MEDS ORDERED: EPOETIN ALFA 10,000 UNITS/ML VIAL IV SCH (10:45)
--- NOTE | 2021-06-16 17:00 | Discharge Summary ---
Date of Service June 16, 2021 Admission HPI Per Admitting Provider Pt is a 71 y/o F with hx of DMII, ESRD on HD (non-compliant), CAD s/p CABG, COPD, Afib (not on AC did not tolerate coumadin), HTN, Hypothyroidism, HLD, RLS, Chronic Anemia (bl: 10), Seizure, Depression/Anxiety, GERD, Insomnia, RLS, Migraine came to the ER due to 1 week hx of N/V and diarrhea. Pt was seen in the clinic yesterday and recommended to go to the ER for severe HTN and missed HD. Per pt she came to the ER yesterday but left w/o seeing. She has been having N/V and Diarrhea for 1 week. Vomiting is NBNB and last episode was 2 days ago. Diarrhea is NB and last episode also 2 days ago. Pt continues to have nausea associated with diffuse abd pain, bloating, L lower chest wall pain, cough and SOB. Due to nausea, she has not been eating much and have not taken any medication for 1 week. She also missed 1 week of HD sessions (#3). Per pt she lives alone. Walks w/o any help, receive help from son who lives close by. Admission Exam Per Admitting Provider General:. NAD, well developed, well nourished, average body habitus HEENT:. Normocephalic and atraumatic, Normal Conjunctiva, EOMI, Sclera is non- icteric Lungs:. No signs of respiratory distress, CTA, no wheezing or crackles Heart:.TTP of the substernal and L lower chest wall, in afib, no murmur Abdominal:.Diffuse TTP (severe near the epigastric area), ND, Soft, normal BS MSK:. No deformities of UE and LE, No leg edema Psych:.appeared anxious AAOx3 Principal Diagnosis Viral gastroenteritis Hypertensive urgency Discharge Exam Constitutional WD/WN, vitals as above Respiratory normal respiratory effort, lungs clear to auscultation Cardiovascular Rate/Rhythm: regular rate and regular rhythm Heart Sounds: + murmur (Grade 3/6, systolic) Vessels: normal peripheral pulses Extremities: no edema Gastrointestinal (Abdomen) Percussion/Palpation: abdomen soft; abdomen nontender Musculoskeletal Dialysis fistula right forearm, + thrill Skin no rashes, warm and dry Neurologic no focal motor deficits Psychiatric A+Ox3, euthymic affect Discharge Data Allergies Allergy/AdvReac Type Severity Reaction Status Date / Time bee venom protein (honey bee) Allergy Intermediate MOUTH Verified 05/10/21 23:44 SWELLING prednisone Allergy Intermediate SWELLING Verified 05/10/21 23:44 OG HANDS, ITCHING, RASH tomato Allergy Intermediate Hives Verified 05/10/21 23:44 Penicillins Allergy Mild RASH Verified 05/10/21 23:44 rosuvastatin Allergy Mild SEVERE H/A Verified 05/10/21 23:44 trazodone AdvReac Severe Confusion Verified 05/10/21 23:44 [id number] Reductase AdvReac Mild EFFECTED Verified 05/10/21 23:44 Inhibitor LIVER [Hbcpuze-Gcx-Vcg Reductase STUDIES Inhibitor] Consultations 06/11/21 11:43 Consult Nephrology Routine Ordered Studies Laboratory Results WBC 6.16 K/uL (4.8-10.8) 06/15/21 06:56 RBC 2.87 M/uL (4.2-5.4) L 06/15/21 06:56 Hgb 8.9 g/dL (12.0-16.0) L 06/15/21 06:56 Hct 27.4 % (37-47) L 06/15/21 06:56 MCV 95.5 fL (80-100) 06/15/21 06:56 MCH 31.0 pg (25-34) 06/15/21 06:56 MCHC 32.5 g/dL (32-36) 06/15/21 06:56 RDW Std Deviation 56.5 fL (36.4-46.3) H 06/15/21 06:56 RDW Coeff of Odilon 16.2 % (11.5-14.5) H 06/15/21 06:56 Plt Count 140 K/uL (130-400) 06/15/21 06:56 MPV 10.2 fL (7.4-10.4) 06/15/21 06:56 Immature Gran % (Auto) 0.2 % 06/12/21 06:00 Neut % (Auto) 73.0 % 06/12/21 06:00 Lymph % (Auto) 19.6 % 06/12/21 06:00 [place] % (Auto) 4.8 % 06/12/21 06:00 Eos % (Auto) 2.2 % 06/12/21 06:00 Baso % (Auto) 0.2 % 06/12/21 06:00 Neut # (Auto) 3.65 K/uL (1.4-6.5) 06/12/21 06:00 Lymph # (Auto) 0.98 K/uL (1.2-3.4) L 06/12/21 06:00 [place] # (Auto) 0.24 K/uL (0.11-0.59) 06/12/21 06:00 Eos # (Auto) 0.11 K/uL (0-0.5) 06/12/21 06:00 Baso # (Auto) 0.01 K/uL (0-0.2) 06/12/21 06:00 Immature Gran # (Auto) 0.01 K/uL (0.00-0.02) 06/12/21 06:00 Sodium 140 mmol/L (136-145) 06/15/21 06:56 Potassium 4.0 mmol/L (3.5-5.1) 06/15/21 06:56 Chloride 105 mmol/L (98-107) 06/15/21 06:56 Carbon Dioxide 29 mmol/L (21-32) 06/15/21 06:56 Anion Gap 6 (3-11) 06/15/21 06:56 BUN 23 mg/dl (6-23) 06/15/21 06:56 Creatinine 2.54 mg/dl (0.6-1.2) H 06/15/21 06:56 Est Cr Clr Drug Dosing 18.6 ml/min 06/15/21 06:56 Est GFR ( Amer) 21.0 ml/min 06/15/21 06:56 Est GFR (Non-Af Amer) 18.1 ml/min 06/15/21 06:56 BUN/Creatinine Ratio 9.1 (10-20) L 06/15/21 06:56 Glucose 121 mg/dl (70-99(Fasting)) H 06/15/21 06:56 POC Glucose 161 mg/dl (70-99) H 06/16/21 08:07 Calcium 8.0 mg/dl (8.5-10.1) L 06/15/21 06:56 Phosphorus 4.9 mg/dl (2.5-4.9) 06/11/21 08:13 Magnesium 2.0 mg/dl (1.7-2.4) 06/15/21 06:56 Total Bilirubin 0.4 mg/dl (0.2-1.0) 06/13/21 06:03 AST 10 U/L (13-39) L 06/13/21 06:03 ALT 9 U/L (7-52) 06/13/21 06:03 Alkaline Phosphatase 87 U/L (34-104) 06/13/21 06:03 Troponin I 0.03 ng/ml (0-0.04) 06/11/21 08:13 Total Protein 6.0 gm/dl (6.0-8.3) 06/13/21 06:03 Albumin 3.3 gm/dl (3.4-5.0) L 06/13/21 06:03 Globulin 2.7 gm/dl (2.5-4.0) 06/13/21 06:03 Albumin/Globulin Ratio 1.2 (0.9-2) 06/13/21 06:03 Lipase 55 U/L (11-82) 06/11/21 08:13 Urine Color Yellow 06/11/21 19:30 Urine Appearance Clear (Clear) 06/11/21 19:30 Urine pH 7.0 (4.5-7.5) 06/11/21 19:30 Ur Specific [place] 1.012 (1.000-1.030) 06/11/21 19:30 Urine Protein 4+ (Negative) H 06/11/21 19:30 Urine Glucose (UA) Trace (Negative) H 06/11/21 19:30 Urine Ketones Negative (Negative) 06/11/21 19:30 Urine Blood Negative (Negative) 06/11/21 19:30 Urine Nitrite Negative (Negative) 06/11/21 19:30 Urine Bilirubin Negative (Negative) 06/11/21 19:30 Urine Urobilinogen Negative (Negative) 06/11/21 19:30 Ur Leukocyte Esterase Negative (Negative) 06/11/21 19:30 Urine WBC (Auto) 1-5 /hpf (0-5) 06/11/21 19:30 Urine RBC (Auto) 0-4 /hpf (0-4) 06/11/21 19:30 U Hyaline Cast (Auto) 1-5 /lpf (0-5) 06/11/21 19:30 U Epithel Cells (Auto) >30 /lpf (0-5) H 06/11/21 19:30 Urine Bacteria (Auto) Negative (Negative) 06/11/21 19:30 Stool Occult Bld Scrn Positive (Negative) A 06/15/21 Unknown Hep Bs Antigen Neg (Neg) 06/13/21 06:03 SARS-CoV-2, RNA, NAAT NEGATIVE (NEGATIVE) 06/11/21 08:13 Impressions Abdomen/Pelvis CT 06/11/21 08:09 CT abd pelvis wo con CLINICAL HISTORY: n/v/d, h/o ESRD TECHNIQUE: Helical axial images of the abdomen and pelvis were obtained. Automated dose lowering techniques and/or adjustment according to patient size were utilized for this exam. This exam was performed without intravenous contrast. COMPARISON: Comparison is made to CT abdomen pelvis 04/08/2021 FINDINGS: Lower chest: Bibasilar atelectasis versus scarring is seen. Cardiomegaly is seen. Liver: Unremarkable. No focal lesions are seen. Gallbladder and biliary tree: Patient is status post cholecystectomy. No intra- or extrahepatic biliary ductal dilation. Pancreas: Fatty replacement of the pancreas is seen. Spleen: Unremarkable. Adrenals: Unremarkable. Kidneys and ureters: Nonobstructive nephrolithiasis is seen. The kidneys are mildly atrophic. Bladder: Limited evaluation due to underdistention. Reproductive organs: Patient is status post hysterectomy. Bowel: Unremarkable appearance of the bowel. The appendix is normal. Lymph nodes Retroperitoneal: Unremarkable. Mesenteric: Unremarkable. Pelvic: Unremarkable. Peritoneum: Minimal diffuse fat stranding is seen, increased from prior exam. Vessels: Atherosclerotic calcifications are seen. Abdominal wall: Soft tissue edema is seen. Bones: Degenerative changes in the visualized spine. IMPRESSION: No acute abnormality and in particular no evidence of bowel obstruction. Minimal diffuse peritoneal stranding and mild anasarca is seen which may be related to fluid overload. Mildly atrophic appearance of the bilateral kidneys. ACT 112: Negative or not required by law. Electronically signed by: Nirav Wall M.D. 06/11/2021 9:39 AM Chest X-Ray 06/11/21 08:09 XR chest 1V portable CLINICAL HISTORY: upper ab pain TECHNIQUE: Single frontal radiograph of the chest was obtained. Comparison: Comparison is made to chest one view 05/10/2021 FINDINGS: Stable median sternotomy wires including fractured second wire. Cardiomegaly is noted. Calcified aortic knob is seen. Prominence and cephalization of the vasculature is seen. No evidence of pleural effusion or pneumothorax. IMPRESSION: Mild pulmonary edema. No evidence of pneumoperitoneum. ACT 112: Negative or not required by law. Electronically signed by: Nirav Wall M.D. 06/11/2021 8:50 AM Hospital Course (1) Hypertensive emergency: (2) Atrial fibrillation with RVR: (3) Nausea and vomiting: (4) ESRD (end stage renal disease) on dialysis: (5) Anemia: (6) DM2 (diabetes mellitus, type 2): (7) Anxiety: (8) Depression: (9) History of CVA (cerebrovascular accident): (10) COPD (chronic obstructive pulmonary disease): (11) GERD (gastroesophageal reflux disease): (12) Seizure: Pt is a 71 y/o F with hx of DMII, ESRD on HD (non-compliant), CAD s/p CABG, COPD, Afib (not on AC did not tolerate coumadin), HTN, Hypothyroidism, HLD, RLS, Chronic Anemia (bl: 10), Seizure, Depression/Anxiety, GERD, Insomnia, RLS, Migraine admitted for 1 week of N/V, diarrhea with abd pain and missed dialysis sessions. CT a/p and CXR revealed no acute findings. GI sx felt likely 2/2 to viral gastroenteritis. Pt has hypertensive emergency likely in setting of missed HD x 1 week. She was Dialyzed on Sunday06/11/21 with 900 mils of UF. She was started on imdur 30mg daily for better blood pressure control as well as hydralazine was increased to 75mg tid. Her hospitalization was complicated with afib with RVR likely 2/2 to illness, missed HD and missed metoprolol dose. This resolved with IV lopressor and she returned to normal sinus rhythm. She is not on oral anticoagulation due to poorly tolerated in past. Her N/V/D resolved by day of discharge and she was feeling back to baseline. She offered no acute concerns of day of discharge. She continues to make urine despite HD. She will continue HD at discharge on . Plan is for her to switch to [facility] HD center and this will be arranged as outpt. Pt did have + FOBT. Her hgb improved to 8.9 on discharge. She is on a PPI. Discussed with GI. Pt denies black stool/melena. She has no external hemorrhoids. She has scheduled OP appt on Tuesday 06/20 with GI so will keep scheduled appointment. She will continue all other home medications. Total Time Total Time Spent Total Time Spent (In Minutes): 35 Discharge Plan Discharge Items Patient Disposition: Home - Self-Care Reason For Visit: Nausea, vomiting, diarrhea Discharge Diagnosis: Hypertensive Emergency due to missed Dialysis Afib with RVR Nausea & Vomitting, likely due to viral gastroenteritis ESRD on HD Anemia of chronic disease + FOBT Condition on Discharge: Good Activity: Resume your previous activity Bathing: No limitations Non-emergency contact: Primary Care Provider and Spoon Maker Call non-emergency contact if: you have any medication questions, your symptoms worsen, your pain is unusual for you, your pain is concerning for you, you have a fever and your temperature is above 101 Follow-up/Referrals: Maliha Gonzales MD [Hospitalist] - 06/22/21 11:00 am (Date & Time 06/22/2021 11:00 AM Provider Maliha Gonzales MD Department General Internal Medicine [facility] ) Ana Clemens MD [Hospitalist] - 06/20/21 1:00 pm (Sunday06/20/21 at 1:00 P.M. ) Diet: Carb Consistent or DM2 and Dialysis Renal Addtl Attending Provider Instructions: MEDICATION CHANGES: New Medications: Isosorbide Mononitrate 30mg by mouth daily for blood pressure Hydralazine increased to 75mg by mouth three times a day Pantoprazole 40mg daily for GERD STOP: Keppra - as you have not been taking this at home Please continue all other medications as prescribed SUMMARY OF TEST RESULTS: You were admitted to hospital secondary to nausea, vomiting, diarrhea, abdominal pain and missed dialysis sessions for 1 week. Your blood pressure was severely elevated likely secondary to missed dialysis. You underwent hemodialysis on 06/14/21 and 06/16/21 Isosorbide mononitrate was added to your blood pressure regimen for better control. Hydralazine was increased to 75mg three times a day for better control. You developed atrial fibrillation with rapid rate during hospitalization. This resolved after taking your home metoprolol and additional IV medications. Your nausea and vomiting and diarrhea resolved. This was likely secondary to a viral gastroenteritis. You were treated conservatively. Your stool tested positive for blood. You will see the Merchandise Displayer on Sunday06/20/21. Please discuss this with him. Your hemoglobin is stable. PENDING TEST RESULTS: None RECOMMENDATIONS FOR FOLLOW-UP: Please continue hemodialysis as scheduled on Sunday, and Sunday. Continue all home medications. Do not miss any doses. Monitor your blood pressure twice daily, keep a log of your blood pressure and take with you to your next follow up with PCP. Continue services provided by [facility] at home. OTHER INSTRUCTIONS: Seek medical attention if you have: * temperature above 101 * chest pain or trouble breathing * abdominal pain, nausea, vomiting * diarrhea, dark stools or bloody stools * any unanswered questions or concerns Call 911 if symptoms are severe. Please take good care of yourself. It has been a pleasure taking care of you. Please take care of yourself. If you have any questions regarding your recent hospitalization please contact [facility] and request [facility] Pachecoist @ [phone]. Pending Studies at Discharge: No Stand-Alone Forms: My [facility] [employer], Smoking Cessation Medications and DC Order Prescriptions: New isosorbide mononitrate 30 mg Tablet Extended Release 24 Hr 30 mg PO QAM Qty: 30 RF: 0 pantoprazole 40 mg Tablet,Delayed Release (Dr/Ec) 40 mg PO DAILY Qty: 30 RF: 0 hydralazine 50 mg Tablet 75 mg PO TID Qty: 90 RF: 0 Continued amlodipine [Norvasc] 10 mg tablet 10 mg PO QAM RF: 0 Tradjenta 5 mg Tablet 5 mg PO QAM RF: 0 nitroglycerin [Nitrostat] 0.4 mg Tablet, Sublingual 0.4 mg sublingual UD PRN (Reason: Angina) RF: 0 sertraline [Zoloft] 100 mg Tablet 150 mg PO QAM RF: 0 aspirin [Aspirin Low Dose] 81 mg Tablet,Delayed Release (Dr/Ec) 81 mg PO QAM RF: 0 levothyroxine 25 mcg Tablet 25 mcg PO QAM RF: 0 montelukast [Singulair] 10 mg Tablet 10 mg PO HS RF: 0 fluticasone propionate [Flonase Allergy Relief] 50 mcg/actuation [place],Suspension 1 spray INTRANASAL DAILY PRN (Reason: Nasal Congestion) RF: 0 sevelamer carbonate [Renvela] 800 mg Tablet 1,600 mg PO TIDM RF: 0 furosemide 40 mg tablet 40 mg PO QAM RF: 0 ipratropium-albuterol 0.5 mg-3 mg(2.5 mg base)/3 mL Solution For Nebulization 3 ml INHALATION Q4H PRN (Reason: Shortness Of Breath) RF: 0 ondansetron HCl 8 mg tablet 8 mg PO TID PRN (Reason: Nausea) RF: 0 ammonium lactate 12 % Cream 1 applic TOPICAL DAILY PRN (Reason: Skin Irritation) RF: 0 epinephrine 0.3 mg/0.3 mL Auto-Injector 0.3 mg IM Q4H PRN (Reason: Anaphylaxis) RF: 0 cholecalciferol (vitamin D3) [Vitamin D3] 25 mcg (1,000 unit) Capsule 25 mcg PO DAILY RF: 0 loperamide 2 mg capsule 2 mg PO DAILY RF: 0 ropinirole 0.25 mg tablet 0.5 mg PO HS RF: 0 albuterol sulfate 90 mcg/actuation HFA aerosol inhaler 2 inh INHALATION Q4H PRN (Reason: Shortness Of Breath) RF: 0 clopidogrel 75 mg tablet 75 mg PO DAILY RF: 0 melatonin 3 mg Tablet 3 mg PO HS Qty: 0 RF: 0 azelastine 137 mcg (0.1 %) aerosol,spray 2 spray INTRANASAL BID RF: 0 Breo Ellipta 100-25 mcg/dose blister with device 1 inh INHALATION DAILY RF: 0 diphenoxylate-atropine [Lomotil] 2.5-0.025 mg Tablet 1 tab PO DAILY PRN (Reason: Diarrhea) RF: 0 loratadine 10 mg Tablet 5 mg PO DAILY RF: 0 svleksavey-tovlfvaquxztd-mbgv 50-325-40 mg Tablet 1 tab PO Q4H PRN (Reason: migraine headache) Qty: 30 RF: 0 metoprolol tartrate 25 mg Tablet 12.5 mg PO BID Qty: 60 RF: 0 amitriptyline 10 mg Tablet 10 mg PO HS Qty: 30 RF: 0 magnesium oxide 400 mg (241.3 mg magnesium) Tablet 400 mg PO QAM Qty: 30 RF: 0 riboflavin (vitamin B2) 400 mg tablet 400 mg PO DAILY Qty: 30 RF: 0 Discontinued levetiracetam [Keppra] 500 mg Tablet 500 mg PO DAILY@1800 Qty: 45 RF: 0 hydralazine 50 mg Tablet 50 mg PO TID Qty: 90 RF: 0 Discharge Orders: Discharge Order (Routine); Ordered 06/16/21 Ordered By: Stephania Mccracken Admission Data Admit Date/Time: 06/11/21 10:23 Attending Provider: Tona Reed Admit Provider: Dontrell Bowen Primary Care Provider: PCP,NO Other Providers: Dontrell Bowen ; Seda Hadley ; Shirlene Salazar ; Leo Hou Other Interventions: Discharge Summary Assessment (RN) Last Done: 06/16/21 13:16 Supervising Physician Co-Signing Physician Notes Pt was seen and examined. Agreed with Stephania BECERRA discharge summary. Continue monitor blood pressure. Follow up with gastro for the FOBT next week for possible scope. Continue monitor H/H outpatient. MD Brianna
== END 2021-06-16 16:10 | disposition home or self-care (01) | DRG 391 ==
LOC: ED 07:46 → SUATTDRO 10:23 → 2S 10:23 → 3N 06-12 23:33